=== PATIENT | female | born 1995 | race Caucasian/White ===

== ENCOUNTER 2025-08-13 22:28 | Outpatient (CLI) | payer BC, SELFPAY ==
--- OUTSIDE RECORDS SUMMARY | 2025-08-13 22:40 | XMS RPT_ITS | CCD ---
Author Organization [facility] Team Providers Care Shampoo Person Name Role Phone Jatin Jung Unavailable [phone] OberBayron abadn Primary Care Provider [phone] OberBayron abadn Primary Care Provider [phone] Oberhauser, Evelyn Unavailable Unavailable Rayray Ayala Unavailable Unavailable Oberhauser, Evelyn L Unavailable Unavailable Jatin Jung Unavailable Unavailable Jose Aggarwal Unavailable Unavailable Oberhauser, Evelyn L Unavailable Unavailable ERNIE GROVE Admitting Unavailab ERNIE Quinn Referring Unavailab le OBERHAUSER, EVELYN Primary Care Unavailable OBERHAUSER, EVELYN Primary Care Unavailable Oberhauser, Evelyn Primary Care Provider [phone] Noemi Witt Unavailable Unavailable Oberhauser, Evelyn Sabrina Unavailable Unavailab le Oberhauser Bayron CHOWDHURYn Unavailable Unavailable Oberhauser, Evelyn L Unavailable Unavailable Jatin Jung Unavailable Unavailable ERNIE GROVE Attending Unavailab le OBERHAUSER, EVELYN Primary Care Unavailable ERNIE GROVE Attending Unavailab le OBERHAUSER, EVELYN Primary Care Unavailable ERNIE GROVE Attending Unavailab le OBERHAUSER, EVELYN Primary Care Unavailable ERNIE GROVE Attending Unavailab le OBERHAUSER, EVELYN Primary Care Unavailable BELEN CARL Attending Unavailable OBERHAUSER, EVELYN Primary Care Unavailable ANTONIO ALVES Attending Unavailable OBERHAUSER, EVELYN Primary Care Unavailable ERNIE GROVE Admitting Unavailab ERNIE Quinn Referring Unavailab le OBERHAUSER, EVELYN Primary Care Unavailable ERNIE GROVE Attending Unavailab le OBERHAUSER, EVELYN Primary Care Unavailable ObtashiahausEvelyn lao Unavailable Unavailable Unavailable Unavailable Unavailable Unavailable Unavailable Oberhauser, Evelyn L Unavailable Chuck Thorpe Unavailable Unavailable Flavio, Lung S Unavailable Unavailable BrigitteFili rangel Unavailable Eva Rosasek Unavailable Unavailable Ileana Gutiérrez Unavailable Donna Arias Unavailable TOBIAS CAMPOS Attending Unavailable TOBIAS CAMPOS Referring Unavailable Oberhauser, Dr. Evelyn Bennett Primary Care Unava ilable Oberhauser, Dr. Evelyn Bennett Attending Unava ilable Oberhauser, Dr. Evelyn Bennett Referring Unava ilable Oberhauser, Dr. Evelyn Bennett Primary Care Unava ilable Chuck Thorpe Attending Unavailab le Oberhauser, Dr. Evelyn Bennett Primary Care Unava ilable Oberhauser, Dr. Evelyn Bennett Primary Care Unava ilable Brigitte, Dr. Fili Recio Attending Unavail able Oberhauser, Dr. Evelyn Bennett Attending Unava ilable Oberhauser, Dr. Evelyn Bennett Primary Care Unava ilable Oberhauser, Dr. Evelyn Bennett Attending Unava ilable Oberhauser, Dr. Evelyn Bennett Referring Unava ilable Oberhauser, Dr. Evelyn Bennett Primary Care Unava ilable Oberhauser, Dr. Evelyn Bennett Primary Care Unava ilable Flavio, MsMeghann Lung Sosa Attending Unavailable Oberhauser, Dr. Evelyn Bennett Primary Care Unava ilable Flavio, MsMeghann Lung Sosa Attending Unavailable Oberhauser, Dr. Evelyn Bennett Primary Care Unava ilable Flavio, MsMeghann Lung Sosa Attending Unavailable Oberhauser, Dr. Evelyn Bennett Primary Care Unava ilable Flavio, MsMeghann Lung Sosa Attending Unavailable Oberhauser, Dr. Evelyn Bennett Primary Care Unava ilable Flavio, MsMeghann Lung Sosa Attending Unavailable Oberhauser, Dr. Evelyn Bennett Attending Unava ilable Oberhauser, Dr. Evelyn Bennett Referring Unava ilable Oberhauser, Dr. Evelyn Bennett Primary Care Unava ilable DANA RAMOS Attending Unavailable Memo Quigley Unavailable Simeon, Ms. Tammy J Referring Unavailable Oberhauser, Dr. Evelyn Bennett Primary Care Unava ilable Simeon, Ms. Tammy J Attending Unavailable Simeon, Ms. Tammy J Referring Unavailable Oberhauser, Dr. Evelyn Bennett Primary Care Unava ilable Simeon, Ms. Tammy J Attending Unavailable Simeon, Ms. Tammy J Referring Unavailable Oberhauser, Dr. Evelyn Bennett Primary Care Unava ilable Simeon, Ms. Tammy J Attending Unavailable Oberhauser, Dr. Evelyn Bennett Primary Care Unava ilable Fried, Ms. Nancy Amanda Attending Unavailabl e Fried, Ms. Nancy Amanda Referring Unavailabl e Oberhaustashia, Dr. Evelyn Bennett Primary Care Unava ilable Fried, Ms. Nancy Amanda Attending Unavailabl e Fried, Ms. Nancy Amanda Referring Unavailabl e DONNA ARIAS Attending Unavailable DONNA ARIAS Referring Unavailable Oberhauser, Dr. Evelyn Bennett Primary Care Unava ilable Oberhauser, Dr. Evelyn Bennett Primary Care Unava ilable Oberhauser, Dr. Evelyn Bennett Referring Unava ilable Colin, Dr. Collado Attending Unavailable Oberhauser, Dr. Evelyn Bennett Primary Care Unava ilable Oberhauser, Dr. Evelyn Bennett Attending Unava ilable Oberhauser, Dr. Evelyn Bennett Referring Unava ilable Oberhauser, Dr. Evelyn Bennett Primary Care Unava ilable Fried, MsMeghann Nancy Amanda Attending Unavailabl e Oberhauser, Dr. Evelyn Bennett Primary Care Unava ilable Flavio, Lung Referring Unavailable Ileana Gutiérrez Attending Unavailable Oberhauser, Dr. Evelyn Bennett Primary Care Unava ilable Flavio, Lung Attending Unavailable Flavio, Lung Referring Unavailable Oberhauser, Dr. Evelyn Bennett Primary Care Unava ilable Flavio, Lung Attending Unavailable Flavio, Lung Referring Unavailable Oberhauser DO, Evelyn L Primary Care Provider [phone] Flavio SCRIPT GIRL-NAILER OPERATOR, Lung S Unavailable Unavailab le Flavio SCRIPT GIRL-NAILER OPERATOR, Lung S Unavailable Simeon SCRIPT GIRL-NAILER OPERATOR, Tammy J Unavailable Simeon SCRIPT GIRL-NAILER OPERATOR, Tammy J Unavailable Simeon SCRIPT GIRL-NAILER OPERATOR, Tammy J Unavailable OBERHAUSER, EVELYN L Primary Care Unavailable TAMMY SIMEON Attending Unavailable OBERHAUSER, EVELYN L Primary Care Unavailable OBERHAUSER, EVELYN L Primary Care Unavailable Unavailable Primary Care Provider Unavailabl e TAMMY SIMEON Attending Unavailable SIPPEY, EVELYN Referring Unavailable OBERHAUSER, EVELYN L Primary Care Unavailable GHULAM RENTERIA Attending Unavailable TAMMY SIMEON Referring Unavailable OBERHAUSER, EVELYN L Primary Care Unavailable TAMMY SIMEON Attending Unavailable OBERHAUSER, EVELYN L Primary Care Unavailable Oberhauser DO, Evelyn Primary Care Provider OBERHAUSER, EVELYN Referring Unavailable OBERHAUSER, EVELYN Attending Unavailable OBERHAUSER, EVELYN Primary Care Unavailable Simeon SCRIPT GIRL-NAILER OPERATOR, Tammy J Unavailable Oberhauser DO, Evelyn L Primary Care Provider OBERHAUSER, EVELYN L Primary Care Unavailable KAI VERA Attending Unavailable JOY DENNISON Attending Unavailable ERIK, NELI L Referring Unavailable HAURY, CHRISSIE Attending Unavailable ROLDAN, LORRAINE Referring Unavailable ERIK, NELI Referring Unavailable MARY STILL Attending Unavailable ROLDAN, LORRAINE Referring Unavailable ROLDAN, LORRAINE Attending Unavailable MARY STILL Attending Unavailable SELF Referring Unavailable ROLDAN, LORRAINE Referring Unavailable SHAQUILLE POON Attending Unavail able ROLDAN, LORRAINE Referring Unavailable ROLDAN, LORRAINE Referring Unavailable ROLDAN, LORRAINE Referring Unavailable HAURY, CHRISSIE Attending Unavailable TAYLOR WOOTEN Attending Unavailable ROLDAN, LORRAINE Referring Unavailable HAURY, CHRISSIE Referring Unavailable ROLDAN, LORRAINE Attending Unavailable BRISEYDA, ALBA Attending Unavailable BRISEYDA, ALBA Referring Unavailable ROLDAN, LORRAINE Attending Unavailable SELF Referring Unavailable ROLDAN, LORRAINE Referring Unavailable TAYLOR WOOTEN Attending Unavailable SHAQUILLE POON Attending Unavail able MILTON MIRANDA Attending Unavailable ROLDAN, LORRAINE Referring Unavailable ROLDAN, LORRAINE Referring Unavailable ROLDAN, LORRAINE Attending Unavailable ROLDAN, LORRAINE Referring Unavailable ROLDAN, LORRAINE Referring Unavailable ROLDAN, LORRAINE Attending Unavailable Evelyn Busch Primary Care Unavailable Roldan, Lorraine Referring Unavailable Roldan, Lorraine Attending Unavailable Roldan, Lorraine Admitting Unavailable Allergies Allergy Classification Reported Allergen(s) Allergy Type Date of Onset Reaction(s) Facility Cephalosporins (antibiotic) (1 source) Cephalexin Drug Allergy 4 [facility] Penicillins (antibiotic) (5 sources) Penicillins; Translations: [Penicillins] Drug Allergy 8 [facility] (18 sources) Penicillins; Translations: [PENICILLINS] Propensity to adverse reactions to drug 8 [facility] (5 sources) Penicillins Propensity to adverse reactions to drug 9 [facility] (20 sources) Penicillins; Translations: [Penicillins] Allergy to drug (finding) [facility] Work Phone: (1 source) Penicillin Drug Allergy Unknown [facility] Other (16 sources) Penicillins Drug Allergy 8 [facility] Work Phone: (10 sources) Adhesive Tape-Silicones; Translations: [ADHESIVE TAPE-SILICONES] Propensity to adverse reactions 4 [facility] Work Phone: (20 sources) Sutures; Translations: [SUTURES] Propensity to adverse reactions 4 [facility] Work Phone: (20 sources) Cephalexin; Translations: [CEPHALEXIN] Drug Allergy 4 [facility] (9 sources) Adhesive agent; Translations: [ADHESIVE] Drug Allergy 5 [facility] (1 source) Penicillins Propensity to adverse reactions to drug 9 [facility] [place] (1 source) *Sutures Propensity to adverse reactions 4 Hives, Itching [facility] [place] (1 source) Skin Adhesives Propensity to adverse reactions to drug 5 Hives, Itching [facility] [place] (12 sources) Penicillins Drug Allergy 8 [facility] (3 sources) Midodrine; Translations: [MIDODRINE] Drug Allergy 5 Other [facility] Work Phone: (5 sources) Adhesive agent Drug Allergy 5 [facility] Medications Current Medications Medication Drug Class(es) Dates Sig (Normalized) Sig (Original) acetaminophen 325 mg / oxyCODONE hydrochloride 5 mg oral tablet (1 source) Opioid Agonist Start: 09-25-2023 End: 09-27-2023 take 1 tablet by mouth every six hours for pain oxyCODONE-acetami nophen (Percocet) 5-325 mg tablet Indications: Post-operative pain Take 1 tablet by mouth every 6 hours if needed for severe pain (7 - 10) (post-operative pain) for up to 2 days. 8 tablet 0 09/25/2023 09/27/2023 Active Ajovy 225 mg/1.5 mL Syrg (8 sources) Start: 08-21-2019 Ajovy 225 mg/1.5 mL Syrg Inject under the skin every 30 (thirty) days . 0 08/21/2019 Active Start: 08-21-2019 Ajovy 225 mg/1 .5 mL Syrg amitriptyline hydrochloride 75 mg oral tablet (5 sources) Tricyclic Antidepressant take 1 tablet by mouth at bedtime amitriptyline 75 MG Tab Take 75 mg by mouth At bedtime. 0 Active ascorbic acid 250 mg chewable tablet (2 sources) Vitamin C take 1 tablet by mouth once daily Vitamin C 250 mg oral tablet, chewable ; 1 tab(s) orally once a day Quantity: 0 Refills: 0 Ordered: 29-May-2022 Belia Smith Generic Substitution Allowed aspirin 81 mg delayed release oral tablet (15 sources) Platelet Aggregation Inhibitor, Nonsteroidal Anti-inflammatory Drug Start: 04-25-20 25 take 1 tablet by mouth once daily aspirin, enteric coated (ECOTRIN LOW STRENGTH) 81 mg EC tablet Indications: with uncertain dates, antepartum (HCC) Take 1 tablet by mouth once daily. 90 tablet 3 01/29/2025 Active Start: 07-20-2020 End: 08-04-2020 take 1 tablet by mouth twice daily aspirin 81 MG EC tablet Take 1 (one) tablet (81 mg total) by mouth 2 (two) times a day for 15 days . 30 tablet 0 07/20/2020 08/04/2020 Active Start: 10-22-2019 End: 11-21-2019 take 1 tablet by mouth twice daily aspirin 325 MG buffered tablet Take 1 (one) tablet (325 mg total) by mouth 2 (two) times a day . 60 tablet 0 10/22/2019 11/21/2019 Active Atogepant (Qulipta) 60 MG tablet (1 source) Start: 10-20-2024 take 1 tablet by mouth once daily Atogepant (Qulipta) 60 MG tablet Take 60 mg by mouth daily. 10/20/2024 Active atogepant 60 MG Oral Tablet [Qulipta] (1 source) take 1 tablet by mouth every twenty-four hours Qulipta 60 MG 1 tablet Orally Once a day Active betamethasone 0.5 mg/ml topical cream (5 sources) Corticosteroid Start: 10-02-2023 End: 01-30-2024 betamethasone dipropionate 0.05 % cream Indications: Urticaria , Allergic contact dermatitis due to adhesives Apply topically 2 times a day as needed for irritation or rash. 15 g 0 10/02/2023 01/30/2024 Active Blood-Glucose Meter (1 source) Start: 06-21-2025 End: 06-22-2025 Blood-Glucose Meter Use as directed to check glucose levels up to seven times daily. 1 each 06/21/2025 06/22/2025 Active 24 hr buPROPion hydrochloride 150 mg extended release oral tablet (1 source) Aminoketone Start: 12-30-2024 take 1 tablet by mouth once daily in the morning buPROPion 150 MG tablet XL Take 1 tablet by mouth daily every morning. 30 tablet 12/30/2024 Active calcium chloride 0.0014 meq/ml / potassium chloride 0.004 meq/ml / sodium chloride 0.103 meq/ml / sodium lactate 0.028 meq/ml injectable solution (6 sources) Start: 09-25-2023 lactated Ringe r's infusion Start: 07-20-2020 End: 07-20-2020 take 100 mL intravenous route every hour 100 mL/hr, Intravenous, Continuous, Starting 07/20/20 at 1245, PACU (only) Start: 07-20-2020 End: 07-20-2020 lactated Ringers infusion Start: 10-22-2019 End: 10-22-2019 take 100 mL intravenous route every hour 100 mL/hr, Intravenous, Continuous, Starting Pat 10/22/19 at 0915, PACU (only) Start: 10-22-2019 End: 10-22-2019 lactated [facility]ers infusion cephalexin 500 mg oral capsule (1 source) Cephalosporin Antibacterial Start: 02-26-2024 End: 03-07-2024 take 1 capsule by mouth twice daily cephalexin (Keflex) 500 mg capsule Indications: Acute rhinosinusitis Take 1 capsule (500 mg) by mouth 2 times a day for 10 days. 20 capsule 02/26/2024 03/07/2024 Active cetirizine hydrochloride 10 mg chewable tablet (20 sources) Histamine-1 Receptor Antagonist take 1 tablet by mouth every twenty-four hours as needed cetirizine (ZyrTEC) 10 mg chewable tablet Chew 1 tablet (10 mg) once daily as needed for allergies. Active ZyrTEC Allergy 1 0 MG Oral Capsule take as needed Quantity: 0 Refills: 0 Ordered: 05-Jul-2023 DO Active ZyrTEC Allergy 1 0 MG Oral Capsule take as needed Quantity: 0 Refills: 0 Ordered: 19-Jul-2022 DO Active take 1 tablet by marycruz once daily as needed cetirizine 10 mg oral tablet ; 1 tab(s) orally once a day, As Needed Quantity: 0 Refills: 0 Ordered: 29-May-2022 Belia Smith Generic Substitution Allowed cyproheptadine hydrochloride 4 mg oral tablet (7 sources) Start: 03-24-2025 End: 06-11-2025 take 1 tablet by mouth every eight hours as needed cyproheptadine (PERIACTIN) 4 mg tablet Take 1 tablet by mouth three times a day as needed (migraines). 30 tablet 06/11/2025 Active Desogestrel / Ethinyl Estradiol (5 sources) Progestin, Estrogen DESOGESTREL- ETHINYL ESTRADIOL PO Take 3 mg by mouth. 0 Active dicyclomine hydrochloride 20 mg oral tablet (6 sources) Anticholinergic Start: 08-06-2023 End: 2023 take 1 tablet by mouth four times daily as needed for pain dicyclomine (Bentyl) 20 mg tablet Indications: RUQ abdominal pain , Epigastric pain Take 1 tablet (20 mg) by mouth 4 times a day as needed (abdominal pain or cramps). 30 tablet 0 08/06/2023 2023 Active dihydroergotamine mesylate 0.5 mg/actuat metered dose nasal spray (1 source) Ergotamine Derivative Trudhesa 4 mg/mL nasal spray ; 1 spray(s) nasal every 15 minutes, As Needed Quantity: 0 Refills: 0 Ordered: 29-May-2022 Belia Smith Generic Substitution Allowed dihydroergotamine mesylate 0.725 MG/ACTUAT Metered Dose Nasal [place] [Trudhesa] (1 source) Trudhesa 0.725 MG/ACT 1 spray in each nostril may repeat dose after 1 hour no more than 3 doses per week as needed Nasally Once a day Active Dihydroergotamine Mesylate HFA (Trudhesa) 0.725 MG/ACT Aero Soln (1 source) Start: 04-17-2024 Dihydroergotamine Mesylate HFA (Trudhesa) 0.725 MG/ACT Aero Soln 1 spray by Miscellaneous route daily as needed for Other (Migraines). May repeat in 1 hour if the first dose does not help 04/17/2024 Active Ethinyl Estradiol / Norethindrone (12 sources) Estrogen Start: 08-23-2023 End: 10-23-2024 take 0.05 ug by mouth once daily in the evening norethindrone ac-eth estradioL (Microgestin 10/26) 1-20 mg-mcg tablet Indications: Encounter for surveillance of contraceptive pills Take 1 tablet by mouth once daily. 28 tablet 11 07/20/2024 2:19 PM EDT 08/23/2023 10/23/2024 Discontinued (Therapy completed) Start: 08-23-2023 End: 08-22-2024 take 0.05 ug by mouth once daily norethindrone ac-eth estradioL (Microgestin /20) 1-20 mg-mcg tablet Indications: Encounter for surveillance of contraceptive pills Take 1 tablet by mouth once daily. 28 tablet 11 08/23/2023 08/22/2024 Suspended Start: 08-23-2023 End: 08-22-2024 take 0.05 ug by mouth once daily norethindrone ac-eth estradioL (Microgestin 20) 1-20 mg-mcg tablet Indications: Encounter for surveillance of contraceptive pills Take 1 tablet by mouth once daily. 28 tablet 11 08/23/2023 08/22/2024 Active famotidine 20 mg oral tablet (14 sources) Histamine-2 Receptor Antagonist Start: 06-01-2025 take 1 tablet by mouth twice daily famotidine (PEPCID) 20 mg tablet Take 1 tablet by mouth two times a day. 60 tablet 5 06/01/2025 Active Start: 08-06-2023 End: 04-17-2024 take 1 tablet by mouth twice daily famotidine (Pepcid) 20 mg tablet Indications: RUQ abdominal pain , Epigastric pain Take 1 tablet (20 mg) by mouth 2 times a day for 7 days. 14 tablet 08/06/2023 04/17/2024 Discontinued (Therapy completed) flu vacc [id number] 6mos up, PF, (Flulaval Quad , PF,) syringe (7 sources) Start: 09-04-2023 End: 01-09-2024 flu vacc [id number] 6mos up, PF, (Flulaval Quad , PF,) syringe Inject into the muscle. 0.5 mL 0 09/04/2023 01/09/2024 Discontinued (Therapy completed) Start: 09-04-2023 flu vacc [id number] [id number] 6mos up, PF, (Flulaval Quad , PF,) syringe Inject into the muscle. 0.5 mL 0 09/04/2023 Suspended Start: 09-04-2023 flu vacc [id number] 3-24 6mos up, PF, (Flulaval Quad , PF,) syringe Inject into the muscle. 0.5 mL 0 09/04/2023 Active fludrocortisone acetate 0.1 mg oral tablet (10 sources) Start: 01-04-2025 take 1 tablet by mouth twice daily fludrocortisone (Florinef) 0.1 mg tablet Indications: POTS (postural orthostatic tachycardia syndrome) Take 1 tablet (0.1 mg) by mouth 2 times a day. 60 tablet 1 01/04/2025 Active Start: 01-04-2023 End: 08-06-2023 take 1 tablet by mouth once daily in the morning, then take 1 tablet by mouth twice daily fludrocortisone (Florinef) 0.1 mg tablet TAKE 1 TABLET BY MOUTH EVERY MORNING FOR 1 WEEK, THEN INCREASE TO 1 TABLET 2 TIMES A DAY 60 tablet 3 03/20/2023 08/06/2023 Discontinued (Therapy completed) gabapentin 100 mg oral capsule (20 sources) Anti-epileptic Agent Start: 05-21-2024 End: 10-23-2024 take 2 capsules by mouth once daily in the morning, then take 1 capsule by mouth once daily gabapentin (Neurontin) 100 mg capsule Indications: Chronic migraine without aura without status migrainosus, not intractable Take 2 capsules (200 mg) by mouth once daily for 7 days, THEN 1 capsule (100 mg) once daily for 7 days. 21 capsule 05/22/2024 9:53 AM EDT 05/21/2024 10/23/2024 Discontinued (Therapy completed) Start: 08-28-2019 End: 12-30-2024 take 1 capsule by mouth twice daily gabapentin 300 MG capsule Indications: NDPH (new daily persistent headache) , Primary stabbing headache Take 1 capsule by mouth 2 times daily. 180 capsule 2 12/23/2019 12/30/2024 Discontinued (Therapy completed) take 1 capsule by mo ut every twenty-four hours Gabapentin 300 MG 1 capsule Orally Once a day Active hydrOXYzine hydrochloride 25 mg oral tablet (5 sources) Antihistamine Start: 10-02-2023 End: 02-26-2024 take 1 tablet by mouth every six hours hydrOXYzine HCL (Atarax) 25 mg tablet Indications: Urticaria , Allergic contact dermatitis due to adhesives Take 1 tablet (25 mg) by mouth every 6 hours if needed for itching. 30 tablet 10/02/2023 02/26/2024 Discontinued (Med List Cleanup) Start: 10-02-2023 End: 10-02-2023 take 1 tablet by mouth three times daily hydrOXYzine HCL (Atarax) 25 mg tablet Indications: Urticaria , Allergic contact dermatitis due to adhesives Take 1 tablet (25 mg) by mouth 3 times a day. 90 tablet 0 10/02/2023 10/02/2023 Discontinued (Med List Cleanup) ibuprofen 600 mg oral tablet (1 source) Nonsteroidal Anti-inflammatory Drug take 1 tablet by mouth twice daily ibuprofen 600 mg oral tablet ; 1 tab(s) orally 2 times a day Quantity: 0 Refills: 0 Ordered: 11-Nov-2019 Vickie Jones Status: Other Generic Substitution Allowed isopropyl alcohol 0.7 ml/ml medicated pad (1 source) Start: alcohol swabs (ALCOHOL PREP PADS) Use as directed to check glucose levels up to seven times daily. 200 each 8 06/21/2025 Active labetalol hydrochloride 100 mg oral tablet (12 sources) beta-Adrenergic [place]tran Start: 025 take 1 tablet by mouth every twenty-four hours as needed labetalol (TRANDATE) 100 mg tablet Take 100 mg by mouth at bedtime as needed. 03/17/2025 Active Start: 09-25-2023 labetaloL (Nor modyne,Trandate) injection 5 mg Start: 07-20-2020 End: 07-20-2020 5 mg, Intravenous, Every 5 m in PRN, SBP greater than 180 or DBP greater than 120, Starting 07/20/20 at 1157, For 4 doses, PACU (only) [] Do not give more than 20 mg total. [] Hold for HR less than 50. Start: 10-22-2019 End: 10-22-2019 5 mg, Intravenous, Every 5 m in PRN, SBP greater than 180 or DBP greater than 120, Starting Pat 10/22/19 at 0819, For 4 doses, PACU (only) [] Do not give more than 20 mg total. [] Hold for HR less than 50. methylPREDNISolone (1 source) Corticosteroid Start: 10-23-2024 End: 10-29-2024 methylPREDNISolone (Medrol Dospak) 4 mg tablets Indications: Chronic migraine with aura without status migrainosus, not intractable Follow schedule on package instructions 21 tablet 10/23/2024 10/29/2024 Active midodrine hydrochloride 2.5 mg oral tablet (20 sources) alpha-Adrenergic Agonist Start: 12-22-2024 take 1 tablet by mouth three times daily midodrine 2.5 MG tablet Take 1 tablet by mouth 3 times daily. 12/22/2024 Active Start: 10-23-2024 take 1 tablet by marycruz three times daily midodrine (Proamatine) 2.5 mg tablet Indications: Chronic migraine without aura without status migrainosus, not intractable Take 1 tablet (2.5 mg) by mouth 3 times daily (morning, midday, late afternoon). 270 tablet 3 10/23/2024 Active Start: 2024 End: 10-23-2024 take 1 tablet by mouth three times daily midodrine (Proamatine) 2.5 mg tablet Indications: Chronic migraine without aura without status migrainosus, not intractable Take 1 tablet (2.5 mg) by mouth 3 times daily (morning, midday, late afternoon). 90 tablet 3 10/08/2024 1:45 PM EST 2024 10/23/2024 Discontinued (Other) Start: 12-09-2023 End: 01-09-2024 take 1 tablet by mouth twice daily midodrine (PROAMATINE) 2.5 mg tablet Take 2.5 mg by mouth two times a day. 12/09/2023 Active Start: 09-09-2023 midodrine (Pro amatine) 2.5 mg tablet Indications: Chronic migraine without aura without status migrainosus, not intractable TAKE 1 TABLET BY MOUTH EVERY MORNING FOR 1 WEEK, THEN TWICE DAILY 60 tablet 2 09/09/2023 Active Start: 07-05-2023 midodrine (Pro amatine) 2.5 mg tablet TAKE 1 TABLET BY MOUTH EVERY MORNING FOR 1 WEEK, THEN TWICE DAILY 60 tablet 1 07/05/2023 Active 1 ml morphine sulfate 4 mg/ml prefilled syringe (2 sources) Opioid Agonist Start: 09-25-2023 morphine injec tion 4 mg Start: 09-25-2023 morphine injec tion 2 mg naproxen sodium 550 mg oral tablet (6 sources) Nonsteroidal Anti-inflammatory Drug Start: 04-29-2019 take 1 tablet by mouth every twelve hours as needed for headache naproxen sodium (ANAPROX DS) 550 MG Tab 1 po q 12 hours prn headache 20 tablet 4 04/29/2019 Active Start: 03-13-2019 End: 04-29-2019 take 1 tablet by mouth every twelve hours as needed for headache naproxen sodium (ANAPROX DS) 550 MG Tab 1 po q 12 hours prn headache 20 tablet 3 03/13/2019 04/29/2019 Discontinued (Reorder) nitrofurantoin, macrocrystals 25 mg / nitrofurantoin, monohydrate 75 mg oral capsule (1 source) Nitrofuran Antibacterial Start: 03-23-2025 End: 03-28-2025 take 1 capsule by mouth twice daily nitrofurantoin, macrocrystal-monohydrate, (Macrobid) 100 mg capsule Indications: Urinary tract infection without hematuria, site unspecified Take 1 capsule (100 mg) by mouth 2 times a day for 5 days. 10 capsule 03/23/2025 03/28/2025 Active nortriptyline 10 mg oral capsule (5 sources) Tricyclic Antidepressant Start: 10-23-2024 take 2 capsules by mouth once daily at bedtime nortriptyline (Pamelor) 10 mg capsule Indications: Chronic migraine with aura without status migrainosus, not intractable Take 2 capsules (20 mg) by mouth once daily at bedtime. 180 capsule 3 10/23/2024 Active Start: 03-13-2024 End: 10-23-2024 take 1 capsule by mouth once daily at bedtime nortriptyline (PAMELOR) 10 mg capsule Take 10 mg by mouth daily at bedtime. 10/23/2024 Active 2 ml ondansetron 2 mg/ml injection (20 sources) Serotonin-3 Receptor Antagonist Start: 09-25-2023 End: 09-25-2023 ondansetron (Zofran) injection 4 mg Start: 10-02-2022 take 1 tablet by marycruz th every eight hours ondansetron 4 mg oral tablet, disintegrating ; 1 tab(s) orally every 8 hours Quantity: 15 Refills: 0 Ordered: 02-Oct-2022 Fili Briggs Start: 02-Oct-2022 Generic Substitution Allowed Start: 04-11-2021 take 1 tablet by marycruz th every six hours Ondansetron HCl - 4 MG Oral Tablet TAKE 1 TABLET Every 6 hours PRN nausea Quantity: 120 Refills: 5 Ordered: 10-Oct-2022 Evelyn Busch DO Start : 11-Apr-2021 Active Start: 07-20-2020 End: 07-20-2020 take 4 mg intravenous route every twenty-four hours as needed 4 mg, Intravenous, Once as needed, nausea, vomiting, Starting 07/20/20 at 1157, For 1 dose, PACU (only) Administer first as needed for nausea/vomiting, or as directed by anesthesia Start: 10-22-2019 End: 10-22-2019 take 4 mg intravenous route every twenty-four hours as needed 4 mg, Intravenous, Once as needed, nausea, vomiting, Starting Pat 10/22/19 at 0819, For 1 dose, PACU (only) Administer first as needed for nausea/vomiting, or as directed by anesthesia oxyCODONE hydrochloride 5 mg oral tablet (1 source) Opioid Agonist Start: 09-25-2023 take 1 tablet by mouth every four hours as needed oxyCODONE (Roxicodone) immediate release tablet 5 mg potassium chloride 20 meq extended release oral tablet (1 source) Start: 10-02-2022 End: 10-08-2022 take 1 tablet by mouth once daily at mealtime potassium chloride 20 mEq oral tablet, extended release ; 1 tab(s) orally once a day Quantity: 7 Refills: 0 Ordered: 02-Oct-2022 Fili Briggs Start: 02-Oct-2022 End: 08-Oct-2022 Generic Substitution Allowed Comments: It is very important that you take or use this exactly as directed. Do not skip doses or discontinue unless directed by your doctor.Medication should be taken with plenty of water.Take with food or milk. Comment on above: It is very important that you take or use this exactly as directed. Do not skip doses or discontinue unless directed by your doctor.Medication should be taken with plenty of water.Take with food or milk. vits18/iron/folic/d ss (PRENACARE ORAL) (11 sources) take 1 tablet by mouth once daily vits18/iron/folic /dss (PRENACARE ORAL) Take 1 tablet by mouth once daily. Active promethazine hydrochloride 25 mg oral tablet (10 sources) Phenothiazine Start: 08-06-2023 End: 01-09-2024 take 1 tablet by mouth every six hours for nausea promethazine (Phenergan) 25 mg tablet Indications: RUQ abdominal pain , Epigastric pain Take 1 tablet (25 mg) by mouth every 6 hours if needed for nausea or vomiting. 30 tablet 1 08/06/2023 01/09/2024 Discontinued (Therapy completed) Qulipta 10 mg oral tablet (2 sources) take 1 tablet by mouth once daily Qulipta 10 mg oral tablet ; 1 tab(s) orally once a day / Patient does not know dose Quantity: 0 Refills: 0 Ordered: 29-May-2022 Belia Smith Generic Substitution Allowed QULIPTA 60 mg tablet (1 source) take 1 tablet by mouth once daily QULIPTA 60 mg tablet Take 60 mg by mouth once daily. Active Qulipta 60 mg tablet tablet (18 sources) Start: 10-20-2024 take 1 tablet by mouth once daily Qulipta 60 mg tablet tablet Indications: Chronic migraine without aura without status migrainosus, not intractable Take 1 tablet (60 mg) by mouth once daily. 30 tablet 5 10/20/2024 Active Start: 04-17-2024 take 1 tablet by marycruz th once daily Qulipta 60 mg tablet tablet Indications: Chronic migraine without aura without status migrainosus, not intractable Take 1 tablet (60 mg) by mouth once daily. 30 tablet 5 04/17/2024 Active Start: 01-09-2024 End: 04-17-2024 take 1 tablet by mouth once daily Qulipta 60 mg tablet tablet Indications: Chronic migraine without aura without status migrainosus, not intractable Take 1 tablet (60 mg) by mouth once daily. 30 tablet 3 01/09/2024 04/17/2024 Discontinued (Reorder) Start: 01-09-2024 take 1 tablet by marycruz th once daily Qulipta 60 mg tablet tablet Indications: Chronic migraine without aura without status migrainosus, not intractable Take 1 tablet (60 mg) by mouth once daily. 30 tablet 3 01/09/2024 Active Start: 12-16-2023 End: 01-09-2024 take 1 tablet by mouth once daily Qulipta 60 mg tablet tablet Indications: Chronic migraine without aura without status migrainosus, not intractable Take 1 tablet (60 mg) by mouth once daily. 30 tablet 0 12/16/2023 01/09/2024 Discontinued (Reorder) Start: 12-16-2023 take 1 tablet by marycruz th once daily Qulipta 60 mg tablet tablet Indications: Chronic migraine without aura without status migrainosus, not intractable Take 1 tablet (60 mg) by mouth once daily. 30 tablet 0 12/16/2023 Active Start: 09-09-2023 take 1 tablet by marycruz th once daily Qulipta 60 mg tablet tablet Indications: Chronic migraine without aura without status migrainosus, not intractable Take 1 tablet (60 mg) by mouth once daily. 30 tablet 2 09/09/2023 Active Start: 09-09-2023 take 1 tablet by marycruz th once daily Qulipta 60 mg tablet tablet Indications: Chronic migraine without aura without status migrainosus, not intractable Take 1 tablet (60 mg) by mouth once daily. 30 tablet 2 09/09/2023 Suspended Start: 01-17-2022 take 1 tablet by marycruz th once daily Qulipta 60 mg tablet tablet Take 1 tablet (60 mg) by mouth once daily. 0 01/17/2022 Active SUMAtriptan 5 mg/actuat nasal spray (20 sources) Serotonin-1b and Serotonin-1d Receptor Agonist Start: 08-13-2019 take 1 spray(s) nasal route every two hours as needed SUMAtriptan (IMITREX) 5 mg/actuation nasal spray Instill 1 spray into each nostril every 2 (two) hours as needed . 0 08/13/2019 Active Start: 08-12-2019 End: 08-29-2021 take 1 spray(s) nasal route every two hours as needed SUMAtriptan 5 MG/ACT Nasal Solution USE 1 SPRAY INTO EACH NOSTRIL NEEDED FOR MIGRAINE RELIEF, MAY REPEAT ONCE AFTER 2 HOURS. MAX - 40MG/DAY. Quantity: 6 Refills: 1 Ordered: 12-Aug-2019 Evelyn Busch DO Start : 12-Aug-2019 End : 29-Aug-2021 Complete Start: 04-29-2019 inject 1 dose by sub cutaneous injection every two hours as needed for headache SUMAtriptan Succinate (IMITREX STATDOSE SYSTEM) 4 MG/0.5ML Solution Auto-injector 1 sub q dose prn headache, may repeat in 2 hours; no more than 2 a day 3 mL 3 04/29/2019 Active SUMAtriptan nasa l 5 mg solution Quantity: 0 Refills: 0 Ordered: 11-Nov-2019 Vickie Jones Status: Other Generic Substitution Allowed Trudhesa 0.725 mg/pump act. (4 mg/mL) nasal spray (2 sources) Start: 04-17-2024 take 1 spray(s) nasal route every hour Trudhesa 0.725 mg/pump act. (4 mg/mL) nasal spray Indications: Chronic migraine with aura without status migrainosus, not intractable Administer 1 spray into each nostril every 1 hour if needed for migraine. 4 each 5 04/17/2024 Active Trudhesa 0.725 mg/pump act. (4 mg/mL) spray,non-aerosol (14 sources) Start: 10-18-2021 Trudhesa 0.725 mg/pump act. (4 mg/mL) spray,non-aerosol Administer into affected nostril(s). 10/18/2021 Active Start: 10-18-2021 Trudhesa 0.725 mg/pump act. (4 mg/mL) spray,non-aerosol Administer into affected nostril(s). 0 10/18/2021 Suspended Start: 10-18-2021 Trudhesa 0.725 mg/pump act. (4 mg/mL) spray,non-aerosol Administer into affected nostril(s). 0 10/18/2021 Active Trudhesa 4 mg/mL nasal spray (1 source) Trudhesa 4 mg/mL nasal spray ; 1 spray(s) nasal every 15 minutes, As Needed Quantity: 0 Refills: 0 Ordered: 29-May-2022 Belia Smith Generic Substitution Allowed zonisamide 100 mg oral capsule (20 sources) Anti-epileptic Agent Start: 08-07-2019 zonisamide (ZONEGRAN) 100 MG capsule Start: 06-22-2019 End: 02-02-2025 take 3 capsules by mouth once daily at bedtime zonisamide (Zonegran) 100 mg capsule Indications: Chronic migraine without aura without status migrainosus, not intractable TAKE 3 CAPSULES (300 MG) BY MOUTH ONCE DAILY AT BEDTIME. 270 capsule 3 02/03/2024 02/02/2025 Active Start: 04-29-2019 zonisamide 100 MG Cap 2 or 3 at bed 100 capsule 4 04/29/2019 Active Start: 03-13-2019 End: 04-29-2019 take 1 capsule by mouth once in the evening, then take 2 capsules by mouth once in the evening zonisamide 100 MG Cap 1 po q pm for 2 weeks then 2 po q pm if no sE 60 capsule 4 03/13/2019 04/29/2019 Discontinued (Reorder) Comment on above: Source=[place], Medication=ZONISAMIDE CAP 100MG, [facility]Source[facility], OriginatingProvider=, , Duration=30, Quantity=90, Date Last Modified/Filled=21-Oct-2019 Completed/Discontinued Medications Medication Drug Class(es) Dates Sig (Normalized) Sig (Original) acetaminophen 325 mg oral tablet (9 sources) Start: 03-23-2025 End: 03-23-2025 take 975 mg by mouth once as needed for pain 975 mg, oral, Once, On Sat03/23/25 at 1040, For 1 dose, If ordered PRN for pain, nurse is permitted to administer this medication for higher pain scores based on patient preference? Yes Start: 09-25-2023 End: 09-25-2023 acetaminophen (Tylenol) tabl et 975 mg take 2 tablets by mo uth every six hours as needed acetaminophen 500 mg oral tablet ; 2 tab(s) orally every 6 hours, As Needed Quantity: 0 Refills: 0 Ordered: 29-May-2022 Belia Smith Generic Substitution Allowed take 120 mg rectal r oute every four hours as needed acetaminophen 120 MG Suppository Insert 120 mg rectally every 4 hours as needed. 0 Active acetaminophen 300 mg / codeine phosphate 30 mg oral tablet (10 sources) Opioid Agonist Start: 07-20-2020 Acetaminophen- Codeine #3 300-30 MG Oral Tablet Quantity: 18 Refills: 0 Ordered: 20-Jul-2020 DO Start : 20-Jul-2020 Active Start: 07-20-2020 End: 07-23-2020 take 1 tablet by mouth every four hours as needed for pain acetaminophen-codeine (Tylenol-Codeine #3) 300-30 mg per tablet Indications: S/P arthroscopy of left knee Take 1 (one) tablet by mouth every 4 (four) hours as needed for pain 7 days . 18 tablet 0 07/20/2020 07/23/2020 Active Start: 07-20-2020 End: 07-20-2020 take 1 tablet by mouth every twenty-four hours as needed acetaminophen-codeine (TYLENOL #3) 300-30 mg per tablet 1 tablet Start: 10-22-2019 End: 10-29-2019 take 1 tablet by mouth once as needed for pain, then take 2 tablets by mouth every four hours as needed for pain acetaminophen-codeine (Tylenol-Codeine #3) 300-30 mg per tablet Indications: S/P arthroscopic surgery of left knee Take 1 (one) tablet to 2 (two) tablets by mouth every 4 (four) hours as needed for pain 7 days . 40 tablet 0 10/22/2019 10/29/2019 Active acetaminophen 325 mg / HYDROcodone bitartrate 5 mg oral tablet (3 sources) Opioid Agonist Start: 08-06-2023 End: 08-11-2023 take 1 tablet by mouth every four hours for pain HYDROcodone-acetaminophen ([place]) 5-325 mg tablet Indications: RUQ abdominal pain Take 1 tablet by mouth every 4 hours if needed for severe pain (7 - 10) for up to 5 days. 20 tablet 0 08/06/2023 08/11/2023 Ajovy 225 MG/1.5ML Subcutaneous Solution Prefilled Syringe (6 sources) Start: 08-12-2019 Ajovy 225 MG/1.5ML Subcutaneous Solution Prefilled Syringe 1 injecton subq q monthly Quantity: 1 Refills: 3 Bayron Busch DOn Start : 12-Aug-2019 Active 1.5 ML Syringe Start: 08-12-2019 Ajovy 225 MG/1 .5ML Subcutaneous Solution Prefilled Syringe 1 injecton subq q monthly Quantity: 1 Refills: 0 Nesser , Evelyn Start : 12-Aug-2019 Active 1.5 ML Syringe [id number] actuat albuterol 0.09 mg/actuat metered dose inhaler (3 sources) beta2-Adrenergic Agonist Start: 11-10-2020 End: 04-11-2021 take 1-2 puff(s) by inhalation every six hours as needed Albuterol Sulfate HFA 108 (90 Base) MCG/ACT Inhalation Aerosol Solution INHALE 1 TO 2 PUFFS EVERY 6 HOURS NEEDED. Quantity: 1 Refills: 3 Ordered: 10-Nov-2020 Evelyn Busch DO Start : 10-Nov-2020 End : 11-Apr-2021 Complete Start: 11-10-2020 take 1-2 puff(s) by inhalation every six hours as needed Albuterol Sulfate HFA 108 (90 Base) MCG/ACT Inhalation Aerosol Solution INHALE 1 TO 2 PUFFS EVERY 6 HOURS NEEDED. Quantity: 1 Refills: 3 Evelyn Busch DO Start : 10-Nov-2020 Active 8.5 GM Inhaler azithromycin 500 mg oral tablet (3 sources) Macrolide Antimicrobial Start: 07-11-2023 End: 08-06-2023 take 1 tablet by mouth once daily azithromycin (Zithromax) 500 mg tablet Indications: Upper respiratory tract infection, unspecified type Take 1 tablet (500 mg) by mouth once daily for 5 days. 5 tablet 0 07/11/2023 08/06/2023 Discontinued (Therapy completed) Start: 07-06-2023 take 1 tablet by marycruz th every twenty-four hours Azithromycin 500 MG 1 tablet Orally Once a day for 5 days Jun, Active brompheniramine maleate 0.4 mg/ml / dextromethorphan hydrobromide 2 mg/ml / pseudoephedrine hydrochloride 6 mg/ml oral solution (1 source) alpha-Adrenergic Agonist, Uncompetitive D-kazxwu-E-aspartate Receptor Antagonist, Sigma-1 Agonist Start: 02-27-2021 End: 03-08-2021 take 5 mL by mouth every four to six hours brompheniramine/pseudoephedrine/dextrome thorphan [id number]/5 mL oral syrup ; 5 milliliter(s) orally every 4 to 6 hours, As Needed Quantity: 120 Refills: 0 Ordered: 27-Feb-2021 Keisha Canales Start: 27-Feb-2021 End: 08-Mar-2021 Status: Other Generic Substitution Allowed Comments: May cause drowsiness. Alcohol may intensify this effect. Use care when operating dangerous machinery.Obtain medical advice before taking any non-prescription drugs as some may affect the action of this medication. Comment on above: May cause drowsiness . Alcohol may intensify this effect. Use care when operating dangerous machinery.Obtain medical advice before taking any non-prescription drugs as some may affect the action of this medication. Calcium Carbonate (20 sources) Tums CHEW Qu[place] ty: 0 Refills: 0 Ordered: 05-Jul-2023 DO Active Tums CHEW Quanti ty: 0 Refills: 0 Ordered: 02-Mar-2020 DO Active Tums CHEW Refill s: 0 Active Tums CHEW Refill s: 0 DO Active ceFAZolin 1000 mg injection (1 source) Cephalosporin Antibacterial Start: 10-22-2019 End: 10-22-2019 ceFAZolin (ANCEF) IVPB 1 g (premix) 1 ml dexamethasone phosphate 10 mg/ml injection (1 source) Corticosteroid Start: 09-25-2023 End: 09-25-2023 dexAMETHasone (PF) (Decadron) injection 8 mg diphenhydrAMINE (1 source) Histamine-1 Receptor Antagonist Start: 03-23-2025 End: 03-23-2025 25 mg, intravenous, Once, On Sat03/23/25 at 1040, For 1 dose, If giving IV push, max rate of 25 mg/min. Drospiren-Eth Estrad-Levomefol 3-0.02-0.451 MG Oral Tablet (17 sources) Progestin, Estrogen Start: 06-19-2019 take 1 tablet by mouth once daily Drospiren-Eth Estrad-Levomefol 3-0.02-0.451 MG Oral Tablet TAKE 1 TABLET DAILY FOR 28 DAYS. Quantity: 1 Refills: 1 Evelyn Busch DO Start : 19-Jun-2019 Active 28 Tablet Pack Start: 06-19-2019 Drospiren-Eth Estrad-Levomefol 3-0.02-0.451 MG Oral Tablet Quantity: 28 Refills: 0 DO Start : 19-Jun-2019 Active Start: 06-19-2019 Drospiren-Eth Estrad-Levomefol 3-0.02-0.451 MG Oral Tablet Quantity: 28 Refills: 0 Start : 19-Jun-2019 Active Start: 12-12-2017 NIKKI 3-0.02- 0.451 mg (24) (4) Tab Take 1 tablet by mouth . 0 12/12/2017 Active Start: 12-12-2017 NIKKI 3-0.02- 0.451 mg (24) (4) Tab DROSPIRE/ETH TAB ESTR/LEV ; 1 orally once a day Quantity: 0 Refills: 0 Ordered: 11-Nov-2019 Vickie Jones Status: Other Generic Substitution Allowed Comments: Source=[place], Medication=DROSPIRE/ETH TAB ESTR/LEV, OriginatingSource=[facility], OriginatingProvider=, , Duration=28, Quantity=28, Date Last Modified/Filled=07-Nov-2019 Comment on above: Source=[place], Medication=DROSPIRE/ETH TAB ESTR/LEV, [facility]Source=[facility], OriginatingProvider=, , Duration=28, Quantity=28, Date Last Modified/Filled=07-Nov-2019 1 ml erenumab-aooe 140 mg/ml auto-injector (2 sources) Star t: 220 22 inject 1 mL by subcutaneous injection every 30 days Aimovig 140 MG/ML Subcutaneous Solution Auto-injector Inject 1ml subcutaneously every 30 days Quantity: 1 Refills: 6 Ordered: 08-Nov-2021 Flavio SCRIPT GIRL-NAILER OPERATOR, Lung Start : 08-Nov-2021 Active Discontinue Emgality. Topirmate, amitriptyline, ajovy, and emgality have failed. Ethinyl Estradiol / Ferrous fumarate / Norethindrone (14 sources) Estrogen Star t: 0 2-20 23 End: 08-09 020 23 norethindrone-e.e stradioL-iron (Lo Loestrin) 1 mg-10 mcg (24)/10 mcg (2) tablet TAKE 1 TABLET DAILY DIRECTED. 84 tablet 3 12/06/2022 09/05/2023 Discontinued (Med List Cleanup) Start: 12-06-2022 End: 12-06-2023 norethindrone-e.estradioL-ir on (Lo Loestrin) 1 mg-10 mcg (24)/10 mcg (2) tablet TAKE 1 TABLET DAILY DIRECTED. 84 tablet 3 12/06/2022 12/06/2023 Active Start: 12-06-2022 take 1 tablet by marycruz once daily Lo Loestrin Fe 1 MG-10 MCG / 10 MCG Oral Tablet TAKE 1 TABLET DAILY DIRECTED. Quantity: 3 Refills: 3 Ordered: 06-Dec-2022 Fried SCRIPT GIRL-CNM, SCRIPT GIRL-NAILER OPERATOR, Nancy Start : 06-Dec-2022 Active fluticasone propionate 0.05 mg/actuat metered dose nasal spray (1 source) Corticosteroid Start: 02-27-2021 End: 03-08-2021 take 1 spray(s) nasal route once daily fluticasone 50 mcg/inh nasal spray ; 1 spray(s) in each nostril once a day Quantity: 1 Refills: 0 Ordered: 27-Feb-2021 Keisha Canales Start: 27-Feb-2021 End: 08-Mar-2021 Status: Other Generic Substitution Allowed Comments: For the nose.It is very important that you take or use this exactly as directed. Do not skip doses or discontinue unless directed by your doctor. Comment on above: For the nose.It is v saroj important that you take or use this exactly as directed. Do not skip doses or discontinue unless directed by your doctor. 1.5 ml fremanezumab-vfrm 150 mg/ml prefilled syringe (5 sources) Start: 12-23-2019 End: 12-30-2024 inject 225 mg by subcutaneous injection every 30 days Fremanezumab-vfrm (Ajovy) 225 MG/1.5ML Solution Prefilled Syringe Indications: NDPH (new daily persistent headache) Inject 225 mg under the skin every 30 days. 1.5 mL 6 12/23/2019 12/30/2024 Discontinued (Therapy completed) Start: 08-12-2019 Ajovy 225 MG/1 .5ML Subcutaneous Solution Prefilled Syringe 1 injecton subq q monthly Quantity: 1 Refills: 3 Ordered: 06-Jun-2021 Evelyn Busch DO Start : 12-Aug-2019 Active AJOVY INJ 225/1. 5 Quantity: 1.5 Refills: 0 Ordered: 11-Nov-2019 Vickie Jones Status: Other Generic Substitution Allowed Comments: Source=[place], Medication=AJOVY INJ 225/1.5, OriginatingSource=[facility], OriginatingProvider=, , Duration=30, Quantity=1.5, Date Last Modified/Filled=21-Oct-2019 Comment on above: Source=[place], Medication=AJOVY INJ 225/1.5, [facility]Source=[facility], OriginatingProvider=, , Duration=30, Quantity=1.5, Date Last Modified/Filled=21-Oct-2019 1 ml galcanezumab-g nlm 120 mg/ml prefilled syringe (7 sources) Start : 06-28 inject 120 mg by subcutaneous injection every month Emgality 120 MG/ML Subcutaneous Solution Prefilled Syringe Inject 120mg subq (1 syringe) once a month Quantity: 1 Refills: 6 Ordered: 01-Aug-2021 Oberhauser DO, Evelyn Start : 28-Jun-2021 Active Start: 06-28-2021 Emgality 120 M G/ML Subcutaneous Solution Prefilled Syringe Inject 240mg subq (2 syringes) x1 as loading dose Quantity: 2 Refills: 0 Ordered: 28-Jun-2021 Oberhauser DO, Evelyn Start : 28-Jun-2021 Active 1 ml HYDROmorphone hydrochloride 1 mg/ml injection (2 sources) Opioid Agonist Start: 07-20-2020 End: 07-20-2020 0.5 mg, Intravenous, Every 5 min PRN, Pain, Starting 07/20/20 at 1157, For 6 doses, PACU (only) [] Give if fentanyl not effective or not ordered. [] Do not give more than 3 mg total. Start: 10-22-2019 End: 10-22-2019 0.5 mg, Intravenous, Every 5 min PRN, Pain, Starting Pat 10/22/19 at 0819, For 6 doses, PACU (only) [] Give if fentanyl not effective or not ordered. [] Do not give more than 3 mg total. ketorolac tromethamine 10 mg oral tablet (8 sources) Nonsteroidal Anti-inflammatory Drug, Cyclooxygenase Inhibitor Start: 11-01-2021 take 1 tablet by mouth every six hours at mealtime Ketorolac Tromethamine 10 MG Oral Tablet TAKE 1 TABLET BY MOUTH EVERY 6 HOURS WITH FOOD Quantity: 20 Refills: 0 Ordered: 01-Nov-2021 Flavio SCRIPT GIRL-NAILER OPERATOR, Lung Start : 01-Nov-2021 Active End: 04-29-2019 take 2 tablets by mouth every four hours as needed ketorolac 5 MG Tab Take 10 mg by mouth every 4 hours as needed. Max of 40mg/day. Max of 5 days. 0 04/29/2019 Discontinued (Therapy completed) 1 ml medroxyPROGESTERone acetate 150 mg/ml injection (18 sources) Progestin Start: 09-17-2022 Depo-Provera 1 50 MG/ML Intramuscular Suspension 0 SUSP IM Quantity: 0 Refills: 0 Ordered: 17-Sep-2022 DO Start : 17-Sep-2022 Complete Start: 06-25-2022 Depo-Provera 1 50 MG/ML Intramuscular Suspension 0 SUSP IM Quantity: 0 Refills: 0 Ordered: 25-Jun-2022 Donan Arias MD Start : 25-Jun-2022 Complete Start: 06-14-2022 MedroxyPROGEST ERone Acetate 150 MG/ML Intramuscular Suspension INJECT EVERY 12 WEEKS DIRECTED Quantity: 1 Refills: 3 Ordered: 14-Jun-2022 Fried SCRIPT GIRL-CNM, SCRIPT GIRL-NAILER OPERATOR, Nancy Start : 14-Jun-2022 Active medroxyPROGESTER one 150 mg/mL intramuscular suspension ; 1 milliliter(s) intramuscular every 3 months/ Patient does not know strength Quantity: 0 Refills: 0 Ordered: 29-May-2022 Belia Smith Generic Substitution Allowed Meperidine (2 sources) Opioid Agonist Start: 07-20-2020 End: 07-20-2020 12.5 mg, Intravenous, Every 5 min PRN, shivering, Starting 07/20/20 at 1157, For 2 doses, PACU (only) Do not give more than 25 mg total. RESTRICTED to use in rigors OR pain management in patients with a documented opioid allergy. Please select this medication s indication. Rigors Start: 10-22-2019 End: 10-22-2019 12.5 mg, Intravenous, Every 5 min PRN, shivering, Starting Pat 10/22/19 at 0819, For 2 doses, PACU (only) Do not give more than 25 mg total. RESTRICTED to use in rigors OR pain management in patients with a documented opioid allergy. Please select this medication s indication. Rigors 2 ml metoclopramide 5 mg/ml injection (1 source) Dopamine-2 Receptor Antagonist Start: 03-23-2025 End: 03-23-2025 10 mg, intravenous, Once, On Sat03/23/25 at 1040, For 1 dose 5 ml midazolam 1 mg/ml injection (1 source) Benzodiazepine Start: 09-25-2023 End: 09-25-2023 midazolam (Versed) injection 1 mg montelukast 10 mg oral tablet (20 sources) Leukotriene Receptor Antagonist Start: 06-25-2019 take 1 tablet by mouth in the evening Montelukast Sodium 10 MG Oral Tablet TAKE 1 TABLET IN THE EVENING. Quantity: 90 Refills: 1 Ordered: 23-Aug-2020 Evelyn Busch DO Start : 25-Jun-2019 Active Comment on above: Source=[place], Medication=MONTELUKAST TAB 10MG, [facility]Source=[facility], OriginatingProvider=, , Duration=30, Quantity=30, Date Last Modified/Filled=30-Oct-2019 naloxone (NARCAN) injection 0.1 mg (2 sources) Start: 07-20-2020 End: 07-20-2020 naloxone (NARCAN) injection 0.1 mg Start: 10-22-2019 End: 10-22-2019 naloxone (NARCAN) injection 0.1 mg naratriptan 2.5 mg oral tablet (20 sources) Serotonin-1b and Serotonin-1d Receptor Agonist Start: 04-29-2019 End: 12-30-2024 take 1 tablet by mouth every four hours Naratriptan HCl - 2.5 MG Oral Tablet TAKE 1 TABLET AT ONSET OF HEADACHE, MAY REPEAT ONCE IN 4 HOURS Quantity: 18 Refills: 0 Ordered: 31-Jan-2021 Evelyn Busch DO Start : 22-Jun-2019 Active Start: 03-13-2019 End: 04-29-2019 naratriptan (AMERGE) 2.5 MG Tab 1 po prn headache max 5mg/day; may repeat in 4 hr x1 8 tablet 3 03/13/2019 04/29/2019 Discontinued (Reorder) take 1 tablet by marycruz th every twenty-four hours as needed naratriptan (AMERGE) 2.5 MG tablet Take 2.5 mg by mouth as needed for migraine Take one (1) tablet at onset of headache; if returns or does not resolve, may repeat after 4 hours; do not exceed five (5) mg in 24 hours. . 0 Active Nurtec 75 MG Oral Tablet Disintegrating (1 source) Start: 10-26-2020 Nurtec 75 MG Oral Tablet Disintegrating Take 1 odt by mouth prn, not to exceed 2 in 24 hours Quantity: 4 Refills: 0 Evelyn Busch DO Start : 26-Oct-2020 Active omeprazole 40 mg delayed release oral capsule (20 sources) Proton Pump Inhibitor Start: 05-26-2019 take 1 capsule by mouth twice daily Omeprazole 40 MG Oral Capsule Delayed Release TAKE 1 CAPSULE TWICE DAILY. Quantity: 180 Refills: 3 Ordered: 26-Oct-2020 Evelyn Busch DO Start : 26-May-2019 Active Start: 05-26-2019 take 1 capsule by mo [facility] once daily Omeprazole 40 MG Oral Capsule Delayed Release TAKE 1 CAPSULE Daily Quantity: 90 Refills: 3 Evelyn Busch DO Start : 26-May-2019 Active Omeprazole 20 MG Oral Capsule Delayed Release Quantity: 0 Refills: 0 Ordered: 02-Mar-2020 DO Active Omeprazole 20 MG Oral Capsule Delayed Release Refills: 0 DO Active predniSONE 20 mg oral tablet (10 sources) Start: 07-09-2023 End: 08-06-2023 predniSONE (Deltasone) 20 mg tablet Indications: Strep throat , Acute non-recurrent sinusitis, unspecified location Take 3 tabs (60mg) daily for 3 days, then take 2 tabs (40mg) daily for 3 days, then take 1 tab (20mg) daily for 3 days. 18 tablet 0 07/09/2023 08/06/2023 Discontinued (Therapy completed) Start: 11-10-2020 End: 04-11-2021 take 3 tablets by mouth once daily, then take 2 tablets by mouth once daily, then take 1 tablet by mouth once daily predniSONE 20 MG Oral Tablet TAKE 3 TABLETS DAILY FOR 3 DAYS, THEN 2 TABLETS DAILY FOR 3 DAYS, THEN 1 TABLET DAILY FOR 3 DAYS. Quantity: 18 Refills: 0 Ordered: 10-Nov-2020 Evelyn Busch DO Start : 10-Nov-2020 End : 11-Apr-2021 Complete Start: 03-13-2019 predniSONE 20 MG Tab tablet 3 x 2 days 2 x 2 days 1 x 2 days 1/2 x 2 days then 1/2 po q o d x 2 days 14 tablet 0 03/13/2019 Active 2 ml prochlorperazine 5 mg/ml injection (2 sources) Phenothiazine Start: 07-20-2020 End: 07-20-2020 take 5 mg intravenous route every twenty-four hours as needed 5 mg, Intravenous, Once as needed, nausea, Starting 07/20/20 at 1157, For 1 dose, PACU (only) Administer if ondansetron (Zofran), promethazine (Phenergan), and Metocolopramide (Reglan) ineffective or not ordered, or as directed by anesthesia, as needed for nausea/vomiting Start: 10-22-2019 End: 10-22-2019 take 5 mg intravenous route every twenty-four hours as needed 5 mg, Intravenous, Once as needed, nausea, Starting Apt 10/22/19 at 0819, For 1 dose, PACU (only) Administer if ondansetron (Zofran), promethazine (Phenergan), and Metocolopramide (Reglan) ineffective or not ordered, or as directed by anesthesia, as needed for nausea/vomiting promethazine (Phenergan) 6.25 mg in sodium chloride 0.9% 50 mL IV (1 source) Start: 09-25-2023 End: 09-25-2023 promethazine (Phenergan) 6.25 mg in sodium chloride 0.9% 50 mL IV propranolol hydrochloride 10 mg oral tablet (20 sources) beta-Adrenergic Beltran Start: 10-23-2024 End: 04-16-2025 take 1 tablet by mouth every eight hours as needed propranolol (INDERAL) 10 mg tablet Take 10 mg by mouth three times a day as needed. 10/23/2024 04/16/2025 Discontinued (Course of therapy completed) Start: 11-19-2022 End: 04-17-2025 take 1 tablet by mouth once daily in the morning as needed Propranolol 10 MG tablet Take 1 tablet by mouth Every morning as needed. 10/23/2024 Active Qulipta 60 MG Oral Tablet (20 sources) Start: 01-17-2022 take 1 tablet by mouth once daily Qulipta 60 MG Oral Tablet one tablet once daily Quantity: 30 Refills: 11 Ordered: 19-Jun-2023 [id number] SCRIPT GIRL-NAILER OPERATOR, Lung Start : 17-Jan-2022 Active Aimovig, Ajovy, Emgality, Topiramate and amitriptyline have failed. Please enroll in support program if denied. Start: 01-17-2022 take 1 tablet by marycruz th once daily Qulipta 60 MG Oral Tablet one tablet once daily Quantity: 30 Refills: 11 Ordered: 19-Jun-2023 Flavio SCRIPT GIRL-NAILER OPERATOR, Lung Start : 17-Jan-2022 Active Aimovig, Ajovy, Emgality, Topiramate and amitriptyline have failed. Please enroll in support program if denied. Start: 01-17-2022 take 1 tablet by marycruz th once daily Qulipta 60 MG Oral Tablet one tablet once daily Quantity: 30 Refills: 5 Ordered: 29-Jan-2023 Simeon SCRIPT GIRL-NAILER OPERATOR, Tammy Start : 17-Jan-2022 Active Aimovig, Ajovy, Emgality, Topiramate and amitriptyline have failed. Please enroll in support program if denied. Start: 01-17-2022 take 1 tablet by marycruz th once daily Qulipta 60 MG Oral Tablet one tablet once daily Quantity: 30 Refills: 5 Ordered: 17-Jan-2022 Flavio SCRIPT GIRL-NAILER OPERATOR, Lung Start : 17-Jan-2022 Active Aimovig, Ajovy, Emgality, Topiramate and amitriptyline have failed. Please enroll in support program if denied. rimegepant 75 mg disintegrating oral tablet (2 sources) Start: 10-26-2020 Nurtec 75 MG O ral Tablet Disintegrating Take 1 odt by mouth prn, not to exceed 2 in 24 hours Quantity: 4 Refills: 0 Ordered: 26-Oct-2020 Evelyn Busch DO Start : 26-Oct-2020 Active sincalide 0.005 mg injection (1 source) Cholecystokinin Analog Start: 08-02-2023 End: 08-02-2023 sincalide (Kinevac) injection 1.9 mcg Start: 08-02-2023 End: 08-02-2023 sincalide (Kinevac) injectio n 1.9 mcg 1000 ml sodium chloride 9 mg/ml injection (1 source) Start: 03-23-2025 End: 03-23-2025 1,000 mL, intravenous, at 999 mL/hr, Administer over 1 Hours, Once, On Sat03/23/25 at 1040, For 1 dose sucralfate 1000 mg oral tablet (3 sources) Aluminum Complex Start: 08-06-2023 End: 08-13-2023 take 1 tablet by mouth four times daily sucralfate (Carafate) 1 gram tablet Indications: RUQ abdominal pain , Epigastric pain Take 1 tablet (1 g) by mouth 4 times a day for 7 days. Mix with a small amount of water and take as a slurry. 28 tablet 0 08/06/2023 08/13/2023 technetium Tc-99m mebrofenin (Choletec) radio-isotope injection 6 millicurie (1 source) Start: 08-02-2023 End: 08-02-2023 technetium Tc-99m mebrofenin (Choletec) radio-isotope injection 6 millicurie topiramate 25 mg oral tablet (15 sources) Start: 07-23-2019 End: 07-20-2020 topiramate (TOPAMAX) 25 MG tablet Start: 06-19-2019 take 1 tablet by marycruz th twice daily Topiramate 50 MG Oral Tablet TAKE 1 TABLET TWICE DAILY. Quantity: 60 Refills: 3 Ordered: 28-Dec-2019 Evelyn Busch DO Start : 19-Jun-2019 Active Comment on above: Source=Surescripts, Medication=TOPIRAMATE TAB 50MG, [facility], OriginatingProvider=, , Duration=30, Quantity=60, Date Last Modified/Filled=30-Oct-2019 1 ml triamcinolone acetonide 40 mg/ml injection (2 sources) Corticosteroid Start: 018 End: 018 triamcinolone acetonide (KENALOG-40) injection 20 mg Start: 12-30-2017 End: 12-30-2017 triamcinolone acetonide (KIARA ALOG-40) injection 20 mg Trudhesa 0.725 MG/ACT Nasal Aerosol Solution (20 sources) Start: 10-18-2021 Trudhesa 0.725 MG/ACT Nasal Aerosol Solution USE 1 SPRAY IN EACH NOSTRIL NEEDED AT ONSET OF HEADACHE. MAY REPEAT IN 1 HOUR IF NEEDED. MAXIMUM 2 DOSES PER DAY OR 3 DOSES WITHIN 7 DAYS. PRIME WITH 4 PUMPS PRIOR TO EACH USE. Quantity: 8 Refills: 5 Ordered: 19-Jun-2023 [id number] APRN-NAILER OPERATOR, Lung Start : 18-Oct-2021 Active Ibuprofen, Tylenol, Naratriptan, sumatriptan, Nurtec, Ubrelvy have failed. Start: 10-18-2021 Trudhesa 0.725 MG/ACT Nasal Aerosol Solution USE 1 SPRAY IN EACH NOSTRIL NEEDED AT ONSET OF HEADACHE. MAY REPEAT IN 1 HOUR IF NEEDED. MAXIMUM 2 DOSES PER DAY OR 3 DOSES WITHIN 7 DAYS. PRIME WITH 4 PUMPS PRIOR TO EACH USE. Quantity: 8 Refills: 5 Ordered: 19-Jun-2023 Flavio CRUZ-NAILER OPERATOR, Lung Start : 18-Oct-2021 Active Ibuprofen, Tylenol, Naratriptan, sumatriptan, Nurtec, Ubrelvy have failed. Start: 10-18-2021 Trudhesa 0.725 MG/ACT Nasal Aerosol Solution USE 1 SPRAY IN EACH NOSTRIL NEEDED AT ONSET OF HEADACHE. MAY REPEAT IN 1 HOUR IF NEEDED. MAXIMUM 2 DOSES PER DAY OR 3 DOSES WITHIN 7 DAYS. PRIME WITH 4 PUMPS PRIOR TO EACH USE. Quantity: 8 Refills: 5 Ordered: 15-Aug-2022 Flavio CRUZ-NAILER OPERATOR, Lung Start : 18-Oct-2021 Active Ibuprofen, Tylenol, Naratriptan, sumatriptan, Nurtec, Ubrelvy have failed. Start: 10-18-2021 take 1 dose nasal ro august every twenty-four hours Trudhesa 0.725 MG/ACT Nasal Aerosol Solution One spray (0.725 mg) into each nostril (total of 2 sprays per dose) per 24 hours Quantity: 2 Refills: 5 Ordered: 18-Oct-2021 Flavio CRUZ-NAILER OPERATOR, Lung Start : 18-Oct-2021 Active Problems Active Problems Problem Classification Problem Date Documented Da te Episodic/Chronic Abdominal pain (20 sources) Right upper quadrant pain; Translations: [Abdominal pain, right upper quadrant] Onset: 2 10-02-2022 Episodic Comment on above: ABD PAIN Allergic reactions (17 sources) Allergy status to penicillin; Translations: [Urticaria] Onset: 2 10-02-2023 Episodic Cardiac dysrhythmias (20 sources) Ventricular premature beats; Translations: [Other premature beats] Onset: 4 01-09-2024 Chronic Cardiac dysrhythmias (20 sources) Palpitations; Translations: [Palpitations] Onset: 2 Episodic Chronic obstructive pulmonary disease and bronchiectasis (20 sources) Bronchitis; Translations: [Bronchitis, not specified as acute or chronic] Episodic Contraceptive and procreative management (20 sources) Patient encounter status; Translations: [Unspecified contraceptive management] 03-03-2025 Episodic Diabetes or abnormal glucose tolerance complicating ; childbirth; or the puerperium (8 sources) Abnormal glucose level; Translations: [Abnormal glucose complicating ] Onset: 5 Resolved: 5 06-14-2025 Episodic E Codes: Adverse effects of medical drugs (4 sources) Penicillin adverse reaction; Translations: [Adverse effect of penicillins, initial encounter] Onset: 5 06-03-2025 Episodic Esophageal disorders (20 sources) Gastroesophageal reflux disease; Translations: [Esophageal reflux] Chronic Fluid and electrolyte disorders (3 sources) Hypokalemia; Translations: [Hypopotassemia] Onset: 2 10-02-2022 Episodic Headache; including migraine (20 sources) New daily persistent headache; Translations: [Refractory migraine without aura] Onset: 9 03-13-2019 Chronic Headache; including migraine (20 sources) Headache; Translations: [Headache] 03-23-2025 Episodic Headache; including migraine (3 sources) Acute headache; Translations: [Headache; including migraine] Onset: 5 Hemorrhage during ; abruptio placenta; placenta previa (13 sources) Low lying placenta; Translations: [Low lying placenta NOS or without hemorrhage, second trimester] Onset: 5 04-16-2025 Episodic Immunizations and screening for infectious disease (3 sources) Vaccination needed; Translations: [Encounter for immunization] Onset: 5 06-11-2025 Episodic Joint disorders and dislocations; trauma-related (14 sources) Patellofemoral syndrome of left knee; Translations: [Disorder of left patellofemoral joint] Onset: 9 09-15-2019 Menstrual disorders (2 sources) Irregular periods; Translations: [Irregular menstruation, unspecified] Onset: 5 11-20-2024 Chronic Mycoses (7 sources) Candidiasis of vagina; Translations: [Vaginal yeast infection] Onset: 5 02-01-2025 Episodic Nausea and vomiting (20 sources) Nausea and vomiting; Translations: [Nausea with vomiting] Onset: 2 10-02-2022 Episodic Nonspecific chest pain (20 sources) Atypical chest pain; Translations: [Other chest pain] Onset: 2 Episodic Other aftercare (1 source) Other superintendent terminal (current) drug therapy; Translations: [Other correction (current) drug therapy] Onset: 2 Episodic Other circulatory disease (1 source) Elevated blood-pressure reading without diagnosis of hypertension; Translations: [Elevated blood-pressure reading, without diagnosis of hypertension] 03-19-2025 Episodic Other complications of (17 sources) Obesity; Translations: [Obesity complicating , unspecified trimester] Onset: 5 03-03-2025 Chronic Other complications of (2 sources) Anemia in mother complicating , childbirth AND/OR puerperium; Translations: [Anemia complicating , third trimester] Onset: 5 06-14-2025 Chronic Other complications of (1 source) Anemia complicating , third trimester; Translations: [Antepartum anemia complicating in third trimester (HCC)] Onset: 5 Chronic Other complications of (1 source) Obesity complicating , unspecified trimester; Translations: [Obesity in (HCC)] Onset: 5 Chronic Other complications of (1 source) Supervision of high risk , unspecified, second trimester; Translations: [Encounter for supervision of high risk in second trimester, antepartum (HCC)] Onset: 5 Episodic Other complications of (1 source) Supervision of high risk , unspecified, third trimester; Translations: [Supervision of high risk in third trimester (HCC)] Onset: 5 Episodic Other complications of (1 source) Supervision of high risk , unspecified, unspecified trimester; Translations: [Supervision of high risk , antepartum (HCC)] Onset: 5 Episodic Other connective tissue disease (2 sources) Pain in left foot; Translations: [Pain in left foot] 12-27-2023 Episodic Other gastrointestinal disorders (20 sources) Irritable bowel syndrome; Translations: [Irritable bowel syndrome] Chronic Other gastrointestinal disorders (20 sources) Chronic constipation; Translations: [Constipation, unspecified] Episodic Other gastrointestinal disorders (20 sources) Abdominal bloating; Translations: [Flatulence, eructation, and gas pain] Episodic Other gastrointestinal disorders (4 sources) Abdominal distension (gaseous); Translations: [Abdominal distension (gaseous)] Onset: 3 Episodic Other hereditary and degenerative nervous system conditions (20 sources) Isolated cervical dystonia; 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 Other hereditary and degenerative nervous system conditions (1 source) Spasmodic torticollis; Translations: [Spasmodic torticollis] Onset: 2 Chronic Other injuries and conditions due to external causes (20 sources) Contusion; Translations: [Contusion of unspecified site] Episodic Other nervous system disorders (1 source) Other chronic pain; Translations: [Other chronic pain] Onset: 3 Chronic Other nervous system disorders (8 sources) Neuropathy; Translations: [Polyneuropathy, unspecified] Onset: 4 01-09-2024 Chronic Other nervous system disorders (1 source) Paresthesia; Translations: [Bilateral numbness and tingling of arms and legs] Episodic Other nervous system disorders (1 source) Postoperative pain ; Translations: [Other acute postprocedural pain] 09-25-2023 Episodic Other non-traumatic joint disorders (7 sources) Knee pain; Translations: [Pain in joint, lower leg] Episodic Other non-traumatic joint disorders (20 sources) Instability of left patellofemoral joint; Translations: [Other joint derangement, not elsewhere classified, lower leg] Episodic Other non-traumatic joint disorders (20 sources) Pain in left knee; Translations: [Left knee pain] Episodic Other non-traumatic joint disorders (3 sources) Joint pain; Translations: [Pain in unspecified joint] 01-09-2024 Episodic Other nutritional; endocrine; and metabolic disorders (1 source) Drug-induced obesity; Translations: [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] 12-30-2024 Chronic Other nutritional; endocrine; and metabolic disorders (2 sources) Obese class II; Translations: [Obesity, Class II, BMI 35-39.9] Onset: 5 12-30-2024 Chronic Other nutritional; endocrine; and metabolic disorders (2 sources) Drug-induced obesity; Translations: [Drug-induced obesity] Onset: Chronic Other nutritional; endocrine; and metabolic disorders (2 sources) Body mass index (BMI) 36.0-36.9, adult; Translations: [Body mass index (BMI) 36.0-36.9, adult] Onset: Chronic Other and delivery including normal (16 sources) Primigravida; Translations: [Encounter for supervision of normal first , first trimester] Onset: 5 01-29-2025 Episodic Other screening for suspected conditions (not mental disorders or infectious disease) (20 sources) Urine test negative; Translations: [ examination or test, negative result] Onset: Episodic Other upper respiratory disease (20 sources) Seasonal allergy; Translations: [Allergic rhinitis, cause unspecified] Chronic Other upper respiratory infections (3 sources) Acute pharyngitis, unspecified; Translations: [Streptococcal pharyngitis] Episodic Residual codes; unclassified (1 source) History of operative procedure on knee; Translations: [S/P arthroscopic surgery of left knee] Episodic Residual codes; unclassified (2 sources) History of arthroscopy of knee joint; Translations: [S/P arthroscopy of left knee] Episodic Residual codes; unclassified (20 sources) Localized edema; Translations: [Edema of left lower limb] Episodic Residual codes; unclassified (20 sources) History finding; Translations: [Other specified conditions influencing health status] Episodic Residual codes; unclassified (2 sources) Gestation period, 13 weeks; Translations: [13 weeks gestation of ] 03-03-2025 Episodic Residual codes; unclassified (1 source) Gestation period, 16 weeks; Translations: [16 weeks gestation of ] 03-19-2025 Episodic Residual codes; unclassified (1 source) Gestation period, 20 weeks; Translations: [20 weeks gestation of ] 04-16-2025 Episodic Residual codes; unclassified (1 source) Gestation period, 27 weeks; Translations: [27 weeks gestation of ] 06-03-2025 Episodic Residual codes; unclassified (1 source) Gestation period, 28 weeks; Translations: [28 weeks gestation of ] 06-11-2025 Episodic Residual codes; unclassified (1 source) 36 weeks gestation of ; Translations: [36 weeks gestation of (HCC)] Onset: Episodic Residual codes; unclassified (1 source) 34 weeks gestation of ; Translations: [34 weeks gestation of (HCC)] Onset: 5 Episodic Residual codes; unclassified (1 source) 33 weeks gestation of ; Translations: [33 weeks gestation of (HCC)] Onset: 5 Episodic Residual codes; unclassified (1 source) 32 weeks gestation of ; Translations: [32 weeks gestation of (HCC)] Onset: 5 Episodic Residual codes; unclassified (1 source) 30 weeks gestation of ; Translations: [30 weeks gestation of (HCC)] Onset: 5 Episodic Residual codes; unclassified (1 source) 28 weeks gestation of ; Translations: [28 weeks gestation of (HCC)] Onset: Episodic Residual codes; unclassified (1 source) 27 weeks gestation of ; Translations: [27 weeks gestation of (HCC)] Onset: 5 Episodic Residual codes; unclassified (1 source) 24 weeks gestation of ; Translations: [24 weeks gestation of (HCC)] Onset: 5 Episodic Unclassified (2 sources) LIGHT HEADED, DOUBLE VISION 05-29-2022 Comment on above: LIGHT HEADED, DOUBLE VISION Unclassified (1 source) FUV 04-18-2022 Comment on above: FUV Unclassified (1 source) $25 COPAY BACK AND NECK PAIN/MIGRAINES 05-11-2022 Comment on above: $25 COPAY BACK AND N NOELLE PAIN/MIGRAINES Unclassified (1 source) DEPO 09-17-2022 Comment on above: DEPO Unclassified (1 source) NPV/ AUTONOMIC 08-19-2022 Comment on above: NPV/ AUTONOMIC Unclassified (1 source) WT. 180 NEAR SYNCOPY, DR. MARION JARVIS 08-22-2022 Comment on above: WT. 180 NEAR SYNCOPY , DR. MARION JARVIS Unclassified (1 source) ER FUV / LOW POTASSIUM 10-02-2022 Comment on above: ER FUV / LOW POTASSI UM Unclassified (2 sources) [facility] Commercial Collections Specialist Review Required; Translations: [[facility] Commercial Collections Specialist Review Required] Onset: 3 Unclassified (2 sources) Chronic migraine with aura, not intractable, without status migrainosus; Translations: [Chronic migraine with aura, not intractable, without status migrainosus] Onset: 4 Unclassified (1 source) Obesity, class 2; Translations: [Obesity, class 2] Onset: 5 Unclassified (11 sources) [facility] Education - COMMON Onset: 5 01-29-2025 Unclassified (11 sources) Education - [place] Onset: 5 01-29-2025 Unclassified (1 source) Chronic migraine with aura without status migrainosus, not intractable; Translations: [Chronic migraine with aura without status migrainosus, not intractable] Onset: 5 Urinary tract infections (4 sources) Urinary tract infectious disease; Translations: [Urinary tract infection, site not specified] Onset: 5 03-23-2025 Episodic Past or Other Problems Problem Classification Problem Date Documented Da te Episodic/Chronic Biliary tract disease (14 sources) Biliary dyskinesia; Translations: [Other specified diseases of gallbladder] Onset: 09-05-2023 09-05-2023 Episodic Blindness and vision defects (2 sources) Other visual disturbances; Translations: [Other visual disturbances] Onset: 05-29-2022 Episodic Conditions associated with dizziness or vertigo (4 sources) Lightheadedness; Translations: [Dizziness and giddiness] Onset: 05-29-2022 05-29-2022 Episodic Malaise and fatigue (2 sources) Other fatigue; Translations: [Other fatigue] Onset: 05-29-2022 Episodic Mood disorders (1 source) Mood disorders Onset: 12-30-2024 12-30-2024 Other aftercare (1 source) Postoperative visit; Translations: [Encounter for other specified surgical aftercare] 10-10-2023 Episodic Other circulatory disease (5 sources) Postural orthostatic tachycardia syndrome ; Translations: [Postural orthostatic tachycardia syndrome (POTS)] Onset: 01-09-2024 Episodic Other complications of (15 sources) High risk ; Translations: [Supervision of high risk , unspecified, unspecified trimester] Onset: 01-29-2025 03-03-2025 Episodic Other connective tissue disease (1 source) Muscle weakness; Translations: [Muscle weakness (generalized)] Episodic Other gastrointestinal disorders (20 sources) Personal history of other diseases of the digestive system; Translations: [History of irritable bowel syndrome] Onset: 08-27-2019 08-27-2019 Episodic Other nervous system disorders (1 source) Paresthesia of hand ; Translations: [Numbness and tingling in both hands] Episodic Other non-traumatic joint disorders (4 sources) Pain in unspecified joint; Translations: [Pain in unspecified joint] Onset: 03-10-2024 Episodic Residual codes; unclassified (1 source) 20 weeks gestation of ; Translations: [20 weeks gestation of (HCC)] Onset: 04-16-2025 Episodic Residual codes; unclassified (1 source) 16 weeks gestation of ; Translations: [16 weeks gestation of (HCC)] Onset: 03-19-2025 Episodic Residual codes; unclassified (1 source) 13 weeks gestation of ; Translations: [13 weeks gestation of (HCC)] Onset: 03-03-2025 Episodic Screening and history of mental health and substance abuse codes (12 sources) H/O: depression; Translations: [Personal history of other mental and behavioral disorders] Onset: 01-29-2025 01-29-2025 Episodic Spondylosis; intervertebral disc disorders; other back problems (20 sources) Cervico-occipital neuralgia; Translations: [Other syndromes affecting cervical region] Onset: 06-12-2022 01-09-2024 Episodic Syncope (19 sources) Near syncope; Translations: [Syncope and collapse] Onset: 05-29-2022 Episodic Unclassified (2 sources) Patient encounter status; Translations: [Contraception management] Unclassified (20 sources) Finding of menstrual bleeding; Translations: [Menstruation] Comment on above: AGE 12; Unclassified (2 sources) [facility] Commercial Collections Specialist Review Required; Translations: [[facility] Commercial Collections Specialist Review Required] Onset: 05-13-2023 Unclassified (16 sources) Onset: 08-06-2023 Resolved: 10-23-2024 08-06-2023 Unclassified (2 sources) Chronic migraine with aura, not intractable, without status migrainosus; Translations: [Chronic migraine with aura, not intractable, without status migrainosus] Onset: 01-09-2024 Unclassified (1 source) Obesity, class 2; Translations: [Obesity, class 2] Onset: 12-30-2024 NEGATED: Highlighted row has not occurred!Residual codes; unclassified (20 sources) Disease Episodic Results Test Name Value Interpretation Reference Range Facility ROUTINE, GROUP B ST REPTOCOCCUS BY PCRon 08-06-2025 ROUTINE, GROUP B STREPTOCOCCUS BY PCR Not detected Normal [facility] Comment on above: Performed By: #### G BPCR ####[facility] LABCLIA [id number] [place] [address] [place] CBC W Auto Differential pane l (Bld)on 07-23-2025 Basophils (Bld) [#/Vol] 0.06 10*3/uL Normal <0.11 [facility] Comment on above: Order Comment: Speci men Type: BLOOD SPECIMENOrdering Facility: [facility] Address: [address] [place] [address] Performed By: #### 5 7021-8 ####[facility] [id number] [place] [address] [place] Basophils/100 WBC (Bld) 0.5 % Normal [facility] Comment on above: Order Comment: Speci men Type: BLOOD SPECIMENOrdering Facility: [facility] Address: [address] [place] [address] Performed By: #### 5 7021-8 ####[facility] [id number] [place] [address] [place] Differential cell count method Nom (Bld) Auto Normal [facility] Comment on above: Order Comment: Speci men Type: BLOOD SPECIMENOrdering Facility: [facility] Address: [address] [place] [address] Performed By: #### 5 7021-8 ####[facility] [id number] [place] [address] [place] Eosinophils (Bld) [#/Vol] 0.13 10*3/uL Normal <0.46 [facility] Comment on above: Order Comment: Speci men Type: BLOOD SPECIMENOrdering Facility: [facility] Address: [address] [place] [address] Performed By: #### 5 7021-8 ####[facility] BEACHESNCMichael [id number] [place] [address] [place] Eosinophils/100 WBC (Bld) 1.1 % Normal [facility] Comment on above: Order Comment: Speci men Type: BLOOD SPECIMENOrdering Facility: [facility] Address: [address] [place] [address] Performed By: #### 5 7021-8 ####[facility]ESNCM[facility] [id number] [place] [address] [place] Erythrocyte distribution width (RBC) [Ratio] 13.7 % Normal 11.5-15.0 [facility] Comment on above: Order Comment: Speci men Type: BLOOD SPECIMENOrdering Facility: [facility] Address: [address] [place] [address] Performed By: #### 5 7021-8 ####[facility] BEACHESNCLI [id number] [place] [address] [place] Hematocrit (Bld) [Volume fraction] 30.3 % Low 36.0-46.0 [facility] Comment on above: Order Comment: Speci men Type: BLOOD SPECIMENOrdering Facility: [facility] Address: [address] [place] [address] Performed By: #### 5 7021-8 ####[facility] WALESKAArchanaNCSUN [id number] [place] [address] [place] Hemoglobin (Bld) [Mass/Vol] 10.1 g/dL Low 11.5-15.5 [facility] Comment on above: Order Comment: Speci men Type: BLOOD SPECIMENOrdering Facility: [facility] Address: [address] [place], [place] [id number] Performed By: #### 5 7021-8 ####[facility] BEACHESNCMichael [id number] [place] [address] [place] Immature granulocytes (Bld) [#/Vol] 0.08 10*3/uL Normal <0.10 [facility] Comment on above: Order Comment: Speci men Type: BLOOD SPECIMENOrdering Facility: [facility] Address: [address] [place], [place] [address] Performed By: #### 5 7021-8 ####[facility] BEACHESNCLIA [id number] [place] [address] [place] Immature granulocytes/100 WBC (Bld) 0.7 % Normal [facility] Comment on above: Order Comment: Speci men Type: BLOOD SPECIMENOrdering Facility: [facility] Address: [address] [place] [address] Performed By: #### 5 7021-8 ####[facility] BEACHESNCLIA [id number] [place] [address] [place] Lymphocytes (Bld) [#/Vol] 2.45 10*3/uL Normal 1.00-4.00 [facility] Comment on above: Order Comment: Speci men Type: BLOOD SPECIMENOrdering Facility: [facility] Address: [address] [place] [address] Performed By: #### 5 7021-8 ####[facility] BEACHESPEPPERLIA [id number] [place] [address] [place] Lymphocytes/100 WBC (Bld) 20.6 % Normal [facility] Comment on above: Order Comment: Speci men Type: BLOOD SPECIMENOrdering Facility: [facility] Address: [address] [place] [address] Performed By: #### 5 7021-8 ####[facility] [id number] [place] [address] [place] MCH (RBC) [Entitic mass] 28.9 pg Normal 26.0-34.0 [facility] Comment on above: Order Comment: Speci men Type: BLOOD SPECIMENOrdering Facility: [facility] Address: [address] [place] [address] Performed By: #### 5 7021-8 ####[facility] [id number] [place] [address] [place] MCHC (RBC) [Mass/Vol] 33.3 g/dL Normal 30.5-36.0 [facility] Comment on above: Order Comment: Speci men Type: BLOOD SPECIMENOrdering Facility: [facility] Address: [address] [place] [address] Performed By: #### 5 7021-8 ####[facility]ENTERLI [id number] [place] [address] [place] MCV (RBC) [Entitic vol] 86.6 fL Normal 80.0-100.0 [facility] Comment on above: Order Comment: Speci men Type: BLOOD SPECIMENOrdering Facility: [facility] Address: [address] [place] [address] Performed By: #### 5 7021-8 ####[facility] [id number] [place] [address] [place] Monocytes (Bld) [#/Vol] 0.98 10*3/uL High <0.87 [facility] Comment on above: Order Comment: Speci men Type: BLOOD SPECIMENOrdering Facility: [facility] Address: [address] [place] [address] Performed By: #### 5 7021-8 ####[facility] CENTERLIA [id number] [place] [address] [place] Monocytes/100 WBC (Bld) 8.2 % Normal [facility] Comment on above: Order Comment: Speci men Type: BLOOD SPECIMENOrdering Facility: [facility] Address: [address] [place] [address] Performed By: #### 5 7021-8 ####[facility] [id number] [place] [address] [place] Neutrophils (Bld) [#/Vol] 8.22 10*3/uL High 1.45-7.50 [facility] Comment on above: Order Comment: Speci men Type: BLOOD SPECIMENOrdering Facility: [facility] Address: [address] [place] [address] Performed By: #### 5 7021-8 ####[facility] [id number] [place] [address] [place] Neutrophils/100 WBC (Bld) 68.9 % Normal [facility] Comment on above: Order Comment: Speci men Type: BLOOD SPECIMENOrdering Facility: [facility] Address: [address] [place] [address] Performed By: #### 5 7021-8 ####[facility] [id number] [place] [address] [place] Nucleated RBC (Bld) [#/Vol] 10*3/uL Normal <0.01 [facility] Comment on above: Order Comment: Speci men Type: BLOOD SPECIMENOrdering Facility: [facility] Address: [address] [place] [address] Performed By: #### 5 7021-8 ####[facility] [id number] [place] [address] [place] Nucleated RBC/100 WBC (Bld) [Ratio] 0.0 /100 WBC Normal [facility] Comment on above: Order Comment: Speci men Type: BLOOD SPECIMENOrdering Facility: [facility] Address: [address] [place] [address] Performed By: #### 5 7021-8 ####[facility] WALESKARUTLEDGENCSUN [id number] [place] [address] [place] Platelet mean volume (Bld) [Entitic vol] 9.0 fL Normal 9.0-12.7 [facility] Comment on above: Order Comment: Speci men Type: BLOOD SPECIMENOrdering Facility: [facility] Address: [address] [place] [address] Performed By: #### 5 7021-8 ####[facility] WALESKARUTLEDGENCKIYAA [id number] [place] [address] [place] Platelets (Bld) [#/Vol] 354 10*3/uL Normal 150-400 [facility] Comment on above: Order Comment: Speci men Type: BLOOD SPECIMENOrdering Facility: [facility] Address: [address] [place] [address] Performed By: #### 5 7021-8 ####[facility] BEACHESNCLIA [id number] [place] [address] [place] RBC (Bld) [#/Vol] 3.50 10*6/uL Low 3.90-5.20 [facility] Comment on above: Order Comment: Speci men Type: BLOOD SPECIMENOrdering Facility: [facility] Address: [address] [place] [address] Performed By: #### 5 7021-8 ####[facility] WALESKATOWNCLIA [id number] [place] [address] [place] WBC (Bld) [#/Vol] 11.92 10*3/uL High 3.70-11.00 [facility] Comment on above: Order Comment: Speci men Type: BLOOD SPECIMENOrdering Facility: [facility] Address: [address] [place] [id number] Performed By: #### 5 7021-8 ####[facility] WALESKATOWNCLIA [id number] [address] [place] CNOVon 07-09-2025 CNOV Office Visit (ALLEST ) ----- JENNIFER HENLEY ([id number]) 1995 F Date Time Provider Department 07/09/25 1:30 PM TAYLOR WOOTEN During your visit today, we recorded the following information about you: Pulse Weight 94/minute 108.1 kg Taylor Wooten APRN.NAILER OPERATOR 07/09/2025 4:12 PM Signed Allergy AND Clinical Immunology HPI Jennifer Henley is a 29 year old female who presents for oral challenge to Amoxicillin. The following assessment and plan was recorded and discussed at her last visit on 06/04/25: Assessment/Plan: 1. Adverse effect of penicillin, initial encounter - ICD9: E930.0, ICD10: T36.0X5A History of rash in infancy. Skin testing negative suggesting that she does not have an IgE-mediated penicillin allergy. Need to complete oral challenge for definitive evaluation. - Return after 28 weeks for graded oral challenge to Amoxicillin - In the meantime, continue to avoid penicillin antibiotics - Advised no antihistamines 5 days prior to challenge visit 2. Adverse effect of cephalosporin, initial encounter - ICD9: E930.5, ICD10: T36.1X5A History of generalized pruritus after taking cephalexin last year. Low suspicion for IgE-mediated allergy. Discussed returning for oral challenge when no longer . In the meantime, continue to avoid cephalexin, taking equally efficacious alternatives as indicted. 3. 27 weeks gestation of - ICD9: V22.2, ICD10: Z3A.27 Discussed benefit of penicillin allergy evaluation in the context of Taylor Wooten APRN.NAILER OPERATOR Interim History Patient is 32 weeks . Reports feeling well with no complaints. No antihistamines in the last 5 days. ALLERGIES Allergen Reactions Penicillins Hives Adhesive Hives Sutures Hives Cephalexin Itching PAST MEDICAL HISTORY Diagnosis Date IBS (irritable bowel syndrome) Migraine headache with aura POTS (postural orthostatic tachycardia syndrome) PAST SURGICAL HISTORY Procedure Laterality Date KNEE LEFT OP SURGERY Left REMOVAL GALLBLADDER FAMILY HISTORY Problem Relation Age of Onset other (scleroderma) Mother other (congestive heart) Father Alzheimer's Disease Maternal Grandmother SOCIAL HISTORY[1] Current Outpatient Medications on File Prior to Visit Medication Sig ferrous sulfate EC 324 mg (65 mg iron) TbEC Take 325 mg by mouth every other day. famotidine (PEPCID) 20 mg tablet Take 1 tablet by mouth two times a day. aspirin, enteric coated (ECOTRIN LOW STRENGTH) 81 mg EC tablet Take 1 tablet by mouth once daily. vits18/iron/folic/dss (PRENACARE ORAL) Take 1 tablet by mouth once daily. Blood-Glucose Sensor (DEXCOM G7 SENSOR) joni 3 devices as directed. Blood-Glucose Meter,Continuous (DEXCOM G7 FINANCE ASSOCIATE) misc 1 device as directed. blood sugar diagnostic test strip Use as directed to check glucose levels up to seven times daily. Lancets Use as directed to check glucose levels up to seven times daily. alcohol swabs (ALCOHOL PREP PADS) Use as directed to check glucose levels up to seven times daily. cyproheptadine (PERIACTIN) 4 mg tablet Take 1 tablet by mouth three times a day as needed (migraines). labetalol (TRANDATE) 100 mg tablet Take 100 mg by mouth at bedtime as needed. No current facility-administered medications on file prior to visit. Review of Systems Constitutional: Negative for chills, fatigue and fever. HENT: Negative for congestion and rhinorrhea. Respiratory: Negative for cough, chest tightness, shortness of breath and wheezing. Cardiovascular: Negative for chest pain, palpitations and leg swelling. Gastrointestinal: Negative for abdominal pain, constipation, diarrhea, nausea and vomiting. Skin: Negative for rash. Pulse 91, weight 108.1 kg (238 lb 5.1 oz), last menstrual period 11/27/2024, SpO2 97%. Body mass index is 40.91 kg/m?. Physical Exam Constitutional: General: She is not in acute distress. HENT: Mouth/Throat: Mouth: Mucous membranes are moist. Pharynx: Oropharynx is clear. No oropharyngeal exudate or posterior oropharyngeal erythema. Cardiovascular: Rate and Rhythm: Normal rate and regular rhythm. Heart sounds: Normal heart sounds. Pulmonary: Effort: Pulmonary effort is normal. No respiratory distress. Breath sounds: Normal breath sounds. Skin: Findings: No rash. Neurological: Mental Status: She is alert and oriented to person, place, and time. Penicillin Skin Testing: ALLERGEN (06/04/25): Penicillin G (Percutaneous): 0 mm, 0 mm PrePen (Percutaneous): 0 mm, 0 mm Ampicillin (Percutaneous): 0 mm, 0 mm CONTROL: 0 mm, 0 mm HISTAMINE: 4 mm, 10 mm Penicillin G (Intradermal): 0 mm, 0 mm PrePen (Intradermal): 0 mm, 0 mm Ampicillin (Intradermal): 0 mm, 0 mm CONTROL: 7 mm, 12 mm Ingestion Challenge: I have reviewed the risks (including the potential for life threateni (more content not included)... Normal [facility] 06-25-2025 [facility] Telephone ([facility]) ----- JENNIFER HENLEY ([id number]) 1995 F Date Time Provider Department 06/25/25 JOY DENNISON [facility] During your visit today, we recorded the following information about you: Joy Dennison, SHARON 06/25/2025 3:[address] Valencia, Pt is interested in a CGM to help manage her blood sugars. Dexcom 7 sensors, disp: 3 per month, epic code [id number] Thank you, Joy Dennison RDN, LD, Neli Gonzalez MD 06/29/2025 9:23 AM Signed done. Keisha Gonzalez MA 07/06/2025 3:27 PM Signed Spoke with prior authorization dept to check status, they stated it was still under review, but it is going to be expedited and we will receive a fax with outcome in 36 hours. NIKA Kunz Trisha, RN 07/06/2025 3:42 PM Signed Received denial for the Dexcom7 sensor. OnGreen message sent. Document states: We denied your request because we did not see what we need to approve the device you asked for, (Dexcom G7 sensors). We may be able to approve this device in a certain situation (if you will use the requested device and supplies for long-term use). We do not see that this applies to you. Allergies As of Date: 06/25/2025 Noted Allergy Reaction PENICILLINS 12/30/2017 4 - Hives ADHESIVE 11/20/2024 4 - Hives SUTURES 01/09/2024 4 - Hives CEPHALEXIN 03/10/2024 9 - Itching Date Reviewed: 06/25/2025 Reviewed by: Mary Still MD - Fully Assessed Reason for Visit: Gestational Diabetes [3789] Cmt: CGM Primary Visit Diagnosis:Gestational diabetes mellitus, class A1 (HCC) [O24.410] Order(s):Blood-Glucose Sensor (DEXCOM G7 SENSOR) devi3 devices as directed.Disp: 3 eachRfl: 7 Blood-Glucose Meter,Continuous (DEXCOM G7 FINANCE ASSOCIATE) misc1 device as directed.Disp: 1 eachRfl: 0 Prescriptions as of 07/06/2025 - Blood-Glucose Sensor (DEXCOM G7 SENSOR) joni 3 devices as directed. - Blood-Glucose Meter,Continuous (DEXCOM G7 FINANCE ASSOCIATE) misc 1 device as directed. - ferrous sulfate EC 324 mg (65 mg iron) TbEC Take 325 mg by mouth every other day. - blood sugar diagnostic test strip Use as directed to check glucose levels up to seven times daily. - Lancets Use as directed to check glucose levels up to seven times daily. - alcohol swabs (ALCOHOL PREP PADS) Use as directed to check glucose levels up to seven times daily. - cyproheptadine (PERIACTIN) 4 mg tablet Take 1 tablet by mouth three times a day as needed (migraines). - famotidine (PEPCID) 20 mg tablet Take 1 tablet by mouth two times a day. - labetalol (TRANDATE) 100 mg tablet Take 100 mg by mouth at bedtime as needed. - aspirin, enteric coated (ECOTRIN LOW STRENGTH) 81 mg EC tablet Take 1 tablet by mouth once daily. - vits18/iron/folic/dss (PRENACARE ORAL) Take 1 tablet by mouth once daily. Problem List As Of Date 06/25/2025 Noted Resolved Chronic migraine with aura [G43.E09] 01/09/2024 History of irritable bowel syndrome [Z87.19] 08/27/2019 Postural orthostatic tachycardia syndrome [G90.*01/09/2024 Obesity in (HCC) [O99.210] 01/29/2025 Supervision of high risk , antepartum *01/29/2025 Primigravida in first trimester (HCC) [Z34.01] 01/29/2025 History of depression [Z86.59] 01/29/2025 Penicillin allergy [Z88.0] 03/03/2025 Low-lying placenta without hemorrhage, second t*04/16/2025 Antepartum anemia complicating in thi*06/14/2025 Abnormal glucose complicating (HCC) [*06/14/2025 06/21/2025 Diet controlled gestational diabetes mellitus (*06/21/2025 Prescriptions ordered this encounter Disp Refills Start End DEXCOM G7 SENSOR DEVICE 3 ea* 7 06/29/2025 Route: Misc Si devices as directed. DEXCOM G7 FINANCE ASSOCIATE 1 ea* 0 06/29/2025 Route: Misc Si device as directed. Encounter Status:Closed by EULALIA RONDON on 07/02/25 [facility] CNNURSEon 06-24-2025 CNNURSE Nurse Visit (DEMBHT) ----- JENNIFER HENLEY ([id number]) 1995 F Date Time Provider Department 06/24/25 8:00 AM BRE ZAMORA During your visit today, we recorded the following information about you: Bre Zamora, RN 06/24/2025 9:36 AM Signed DIABETES SELF-MANAGEMENT EDUCATION AND SUPPORT Location: [place] Type of visit: Virtual (with video) individual -- I have communicated my name and active licensure. The patient's identity and physical location were verified at the time of this visit. Either the patient or their legal inbound sales representative has been informed of the risks and benefits of -- and alternatives to -- treatment through a remote evaluation and consents to proceed with the evaluation remotely. 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 Patient states he/she is located at home/work and is the [facility] for duration of this visit. Types of DSMES: Initial/Comprehensive (add to or update ADA spreadsheet) PATIENT'S MAIN CONCERN TODAY: new gestational diabetes diagnosis Support person present for education today: none Cognitive ability: Alert and oriented Motivation to learn: Interested Learning barriers identified by educator: none Method of instruction: written and verbal INTERVENTIONS/TOPICS COVERED: -Diabetes Pathophysiology: gestational diabetes basics -Monitoring: A1c meaning and target <7%, BG targets, rationale for HGM, sharps disposal, testing frequency, and using a home glucose monitor -Healthy Eating: impact of carbs on BG, basic carb counting, foods with carbs, portion sizes, fiber, reading food labels, recommendation for 30 g carb breakfast, 45-60 g carb lunch/dinner, 15-30 g carb snacks, eating out, carb counting tools (books, Internet, smartphone apps), healthy heart options, and always pair protein/healthy fats with meals and snacks that contain carbs -Medications: medication safety/timing, medication side effects, insulin storage, site selection/rotation, pen injection instruction, sharps disposal, reviewed home DM meds, taught new DM meds as noted, basal insulin, and injectable insulin discussed: NPH Insulin -Physical Activity: benefits of exercise, impact of exercise on BG, types of exercise, and exercise safety -Acute Complications: hypoglycemia s/sx/tx, hyperglycemia s/sx/tx, and traveling with diabetes -Chronic Complications: importance of BG control to reduce risks and risks to mom and baby with elevated blood sugars during -Healthy Coping and Support: impact of stress on BG and stress management techniques DIABETES ASSESSMENT: Referring Physician: Dr. Margarita Lazaro Previous Diabetes Education? No What are you hoping to gain from this visit? New gestational diabetes diagnosis In your words, what is gestational diabetes? High blood sugar What concerns you about having gestational diabetes? Having to start insulin Diabetes History: Type of Diabetes: Gestational ( diabetes in ) How far along is your ? Weeks: 29 Does anyone in your family have diabetes? 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 never How often does someone help you read your pill bottles? never How often does someone have to help you take care of your diabetes? never Major stressors: none noted How do you manage stress? reading Do any of the following things get in the way of managing your diabetes? No self-identified issues Health History: Do you use tobacco? No Do you use alcohol? No In the past 12 months have you had any: Hospital Admissions: No ER Visits: Yes, Number of Times? 1 Primary Care Visits: Asked/not answered What are your general feelings about you overall health? Good Medical Issues/Complications: gestational diabetes in To whom are you reporting your blood sugar levels? OB PAST MEDICAL HISTORY Diagnosis Date IBS (irritable bowel syndrome) Migraine headache with aura POTS (postural orthostatic tachycardia syndrome) Most recent A1C Lab Results Component Value Date HBA1C 5.2 03/05/2025 HBA1C 5.4 11/20/2024 Physical Activity: Do you do a regular exercise? Yes; how many days per week 5+ How long each day? Less than 30 min Type of Exercise: walking Sleep: Do you get at least 7 hrs of sleep most nights? yes Curr (more content not included)... Normal [facility] CNPNon 06-21-2025 CNPN Telephone (OBGYWM) ----- JENNIFER HENLEY ([id number]) 1995 F Date Time Provider Department 06/21/25 NELI VALENCIA OBGYWM During your visit today, we recorded the following information about you: Eulalia Rondon RN 06/21/2025 11:14 AM Signed Patient did not pass 3 hr GTT. She has a diagnosis of gestational diabetes. Needs supplies and teaching please. Eulalia Rondon RN 06/21/2025 11:14 AM Signed Patient already has growth ultrasound scheduled for this Saturday. Please file pended orders for supplies and teaching. ASHLEY Quintanilla Lindsey, RN 06/21/2025 11:31 AM Signed Patient notified of results, verbalizes understanding of instructions. Transferred to [facility] to schedule consult appointments. Eulalia Rondon RN Allergies As of Date: 06/21/2025 Noted Allergy Reaction PENICILLINS 12/30/2017 4 - Hives ADHESIVE 11/20/2024 4 - Hives SUTURES 01/09/2024 4 - Hives CEPHALEXIN 03/10/2024 9 - Itching Date Reviewed: 06/11/2025 Reviewed by: Hilda Goins LPN - Fully Assessed Reason for Visit: Gestational Diabetes [3789] Cmt: Primary Visit Diagnosis:Diet controlled gestational diabetes mellitus (GDM) in third trimester (HCC) [O24.410] Order(s):Blood-Glucose MeterUse as directed to check glucose levels up to seven times daily.Disp: 1 eachRfl: 0 blood sugar diagnostic test stripUse as directed to check glucose levels up to seven times daily.Disp: 200 stripRfl: 8 LancetsUse as directed to check glucose levels up to seven times daily.Disp: 200 eachRfl: 8 alcohol swabs (ALCOHOL PREP PADS)Use as directed to check glucose levels up to seven times daily.Disp: 200 eachRfl: 8 CONSULT TO DIABETES EDUCATION DSME [[id number]] Order #: [id number]: 2 FUTURE ENDOCRINOLOGY DIETITIAN VISIT (MNT) [[id number]] Order #: [id number]: 4 FUTURE Prescriptions as of 06/21/2025 - Blood-Glucose Meter Use as directed to check glucose levels up to seven times daily. - blood sugar diagnostic test strip Use as directed to check glucose levels up to seven times daily. - Lancets Use as directed to check glucose levels up to seven times daily. - alcohol swabs (ALCOHOL PREP PADS) Use as directed to check glucose levels up to seven times daily. - cyproheptadine (PERIACTIN) 4 mg tablet Take 1 tablet by mouth three times a day as needed (migraines). - famotidine (PEPCID) 20 mg tablet Take 1 tablet by mouth two times a day. - labetalol (TRANDATE) 100 mg tablet Take 100 mg by mouth at bedtime as needed. - aspirin, enteric coated (ECOTRIN LOW STRENGTH) 81 mg EC tablet Take 1 tablet by mouth once daily. - vits18/iron/folic/dss (PRENACARE ORAL) Take 1 tablet by mouth once daily. Problem List As Of Date 06/21/2025 Noted Resolved Chronic migraine with aura [G43.E09] 01/09/2024 History of irritable bowel syndrome [Z87.19] 08/27/2019 Postural orthostatic tachycardia syndrome [G90.*01/09/2024 Obesity in (HCC) [O99.210] 01/29/2025 Supervision of high risk , antepartum *01/29/2025 Primigravida in first trimester (HCC) [Z34.01] 01/29/2025 History of depression [Z86.59] 01/29/2025 Penicillin allergy [Z88.0] 03/03/2025 Low-lying placenta without hemorrhage, second t*04/16/2025 Antepartum anemia complicating in thi*06/14/2025 Abnormal glucose complicating (HCC) [*06/14/2025 06/21/2025 Diet controlled gestational diabetes mellitus (*06/21/2025 Prescriptions ordered this encounter Disp Refills Start End BLOOD-GLUCOSE METER 1 ea* 0 06/21/2025 06/22/2025 Cmt: Per Insurance Coverage Sig: Use as directed to check glucose levels up to seven times daily. BLOOD SUGAR DIAGNOSTIC STRIPS 200 * 8 06/21/2025 Cmt: Per Insurance Coverage Sig: Use as directed to check glucose levels up to seven times daily. LANCETS 200 * 8 06/21/2025 Cmt: Per Insurance Coverage Sig: Use as directed to check glucose levels up to seven times daily. ALCOHOL SWABS 200 * 8 06/21/2025 Cmt: Per Insurance Coverage Sig: Use as directed to check glucose levels up to seven times daily. Encounter Status:Closed by EULALIA RONDON on 06/21/25 Normal [facility] GLUCOSE GESTATIONAL, 1 HOURo n 06-19-2025 Glucose 1 Hr post Unsp challenge [Mass/Vol] 191 mg/dL High 74-179 [facility] Comment on above: Order Comment: Fredy mancuso Type: BLOOD SPECIMENOrdering Facility: [facility] Address: [address] [place] [address] Result Comment: [facility] Congress of Obstetricians and Gynecologists (Connie/Norma) guidelines state gestational diabetes mellitus is present when 2 or more of the plasma glucose concentrations meet or exceed the following levels: fastin mg/dl, 1 hr: 180 mg/dl, 2 hr: 155 mg/dl, and 3 hr: 140 mg/dl. Performed By: #### G TGST1 ####[facility] [id number] [place] [address] [place] GLUCOSE GESTATIONAL, 2 HOURo n 06-19-2025 Glucose 2 Hr post Unsp challenge [Mass/Vol] 168 mg/dL High 74-154 [facility] Comment on above: Order Comment: Fredy mancuso Type: BLOOD SPECIMENOrdering Facility: [facility] Address: [address] [place] [address] Result Comment: [facility] Congress of Obstetricians and Gynecologists (Connie/Norma) guidelines state gestational diabetes mellitus is present when 2 or more of the plasma glucose concentrations meet or exceed the following levels: fastin mg/dl, 1 hr: 180 mg/dl, 2 hr: 155 mg/dl, and 3 hr: 140 mg/dl. Performed By: #### G TGST2 ####[facility] [id number] [address] [place] GLUCOSE GESTATIONAL, 3 HOURo n 06-19-2025 Glucose 3 Hr post Unsp challenge [Mass/Vol] 85 mg/dL Normal 74-139 [facility] Comment on above: Order Comment: Speci jamee Type: BLOOD SPECIMENOrdering Facility: [facility] Address: [address] [place] [address] Result Comment: [facility] Congress of Obstetricians and Gynecologists (Rosales/Paulan) guidelines state gestational diabetes mellitus is present when 2 or more of the plasma glucose concentrations meet or exceed the following levels: fastin mg/dl, 1 hr: 180 mg/dl, 2 hr: 155 mg/dl, and 3 hr: 140 mg/dl. Performed By: #### G TGST3 ####[facility] [id number] [address] STATES [facility] GLUCOSE GESTATIONAL, FASTING on 06-19-2025 Glucose post fast [Mass/Vol] 91 mg/dL Normal 74-94 [facility] Comment on above: Order Comment: Mikeli jamee Type: BLOOD SPECIMEN Ordering [facility]: [facility] Address: [address] [place] [address] Result Comment: [facility] Congress of Obstetricians and Gynecologists (Rosales/Rafastan) guidelines state gestational diabetes mellitus is present when 2 or more of the plasma glucose concentrations meet or exceed the following levels: fastin mg/dl, 1 hr: 180 mg/dl, 2 hr: 155 mg/dl, and 3 hr: 140 mg/dl. Performed By: #### 2 842-3 #### [facility] CLIA [id number] [address] [place] [address] [place] CBC W Auto Differential pane l (Bld)on 06-11-2025 Basophils (Bld) [#/Vol] 0.08 10*3/uL Normal <0.11 [facility] Comment on above: Order Comment: Speci men Type: BLOOD SPECIMENOrdering Facility: [facility] Address: [address] [place] [address] Performed By: #### 5 7021-8 ####[facility]ENTERLIA [id number] [place] [address] [place] Basophils/100 WBC (Bld) 0.6 % Normal [facility] Comment on above: Order Comment: Speci men Type: BLOOD SPECIMENOrdering Facility: [facility] Address: [address] [place] [address] Performed By: #### 5 7021-8 ####[facility] [id number] [place] [address] [place] Differential cell count method Nom (Bld) Auto Normal [facility] Comment on above: Order Comment: Speci men Type: BLOOD SPECIMENOrdering Facility: [facility] Address: [address] [place] [address] Performed By: #### 5 7021-8 ####[facility] [id number] [place] [address] [place] Eosinophils (Bld) [#/Vol] 0.24 10*3/uL Normal <0.46 [facility] Comment on above: Order Comment: Speci men Type: BLOOD SPECIMENOrdering Facility: [facility] Address: [address] [place] [address] Performed By: #### 5 7021-8 ####[facility] [id number] [place] [address] [place] Eosinophils/100 WBC (Bld) 1.7 % Normal [facility] Comment on above: Order Comment: Speci men Type: BLOOD SPECIMENOrdering Facility: [facility] Address: [address] [place] [address] Performed By: #### 5 7021-8 ####[facility] [id number] [place] [address] [place] Erythrocyte distribution width (RBC) [Ratio] 13.4 % Normal 11.5-15.0 [facility] Comment on above: Order Comment: Speci men Type: BLOOD SPECIMENOrdering Facility: [facility] Address: [address] [place] [address] Performed By: #### 5 7021-8 ####[facility] [id number] [place] [address] [place] Hematocrit (Bld) [Volume fraction] 31.7 % Low 36.0-46.0 [facility] Comment on above: Order Comment: Speci men Type: BLOOD SPECIMENOrdering Facility: [facility] Address: [address] [place] [address] Performed By: #### 5 7021-8 ####[facility] [id number] [place] [address] [place] Hemoglobin (Bld) [Mass/Vol] 10.4 g/dL Low 11.5-15.5 [facility] Comment on above: Order Comment: Speci men Type: BLOOD SPECIMENOrdering Facility: [facility] Address: [address] [place] [address] Performed By: #### 5 7021-8 ####[facility]ENTERLIA [id number] [place] [address] [place] Immature granulocytes (Bld) [#/Vol] 0.13 10*3/uL High <0.10 [facility] Comment on above: Order Comment: Speci men Type: BLOOD SPECIMENOrdering Facility: [facility] Address: [address] [place] [address] Performed By: #### 5 7021-8 ####[facility] [id number] [place] [address] [place] Immature granulocytes/100 WBC (Bld) 0.9 % Normal [facility] Comment on above: Order Comment: Speci men Type: BLOOD SPECIMENOrdering Facility: [facility] Address: [address] [place] [address] Performed By: #### 5 7021-8 ####[facility] [id number] [place] [address] [place] Lymphocytes (Bld) [#/Vol] 3.12 10*3/uL Normal 1.00-4.00 [facility] Comment on above: Order Comment: Speci men Type: BLOOD SPECIMENOrdering Facility: [facility] Address: [address] [place] [address] Performed By: #### 5 7021-8 ####[facility] [id number] [place] [address] [place] Lymphocytes/100 WBC (Bld) 21.7 % Normal [facility] Comment on above: Order Comment: Speci men Type: BLOOD SPECIMENOrdering Facility: [facility] Address: [address] [place] [address] Performed By: #### 5 7021-8 ####[facility] CENTERKIYAA [id number] [place] [address] [place] MCH (RBC) [Entitic mass] 29.9 pg Normal 26.0-34.0 [facility] Comment on above: Order Comment: Speci men Type: BLOOD SPECIMENOrdering Facility: [facility] Address: [address] [place] [address] Performed By: #### 5 7021-8 ####[facility] BEACHESNCLIA [id number] [place] [address] [place] MCHC (RBC) [Mass/Vol] 32.8 g/dL Normal 30.5-36.0 [facility] Comment on above: Order Comment: Speci men Type: BLOOD SPECIMENOrdering Facility: [facility] Address: [address] [place] [address] Performed By: #### 5 7021-8 ####[facility] [id number] [place] [address] [place] MCV (RBC) [Entitic vol] 91.1 fL Normal 80.0-100.0 [facility] Comment on above: Order Comment: Speci men Type: BLOOD SPECIMENOrdering Facility: [facility] Address: [address] [place] [address] Performed By: #### 5 7021-8 ####[facility] [id number] [place] [address] [place] Monocytes (Bld) [#/Vol] 0.86 10*3/uL Normal <0.87 [facility] Comment on above: Order Comment: Speci men Type: BLOOD SPECIMENOrdering Facility: [facility] Address: [address] [place] [address] Performed By: #### 5 7021-8 ####[facility] CENTERLI [id number] [place] [address] [place] Monocytes/100 WBC (Bld) 6.0 % Normal [facility] Comment on above: Order Comment: Speci men Type: BLOOD SPECIMENOrdering Facility: [facility] Address: [address] [place] [address] Performed By: #### 5 7021-8 ####[facility] [id number] [place] [address] [place] Neutrophils (Bld) [#/Vol] 9.97 10*3/uL High 1.45-7.50 [facility] Comment on above: Order Comment: Speci men Type: BLOOD SPECIMENOrdering Facility: [facility] Address: [facility] [place] [address] Performed By: #### 5 7021-8 ####[facility] JEWELLWPEPPERLIA [id number] [place] [address] [place] [facility] Neutrophils/100 WBC (Bld) 69.1 % Normal [facility] Comment on above: Order Comment: Speci men Type: BLOOD SPECIMENOrdering Facility: [facility] Address: [address] [place] [address] Performed By: #### 5 7021-8 ####[facility]ES[facility]PPERLIA [id number] [place] [address] [place] Nucleated RBC (Bld) [#/Vol] 10*3/uL Normal <0.01 [facility] Comment on above: Order Comment: Speci men Type: BLOOD SPECIMENOrdering Facility: [facility] Address: [address] [place] [address] Performed By: #### 5 7021-8 ####[facility]ACHESNCLIA [id number] [place] [address] [place] Nucleated RBC/100 WBC (Bld) [Ratio] 0.0 /100 WBC Normal [facility] Comment on above: Order Comment: Speci men Type: BLOOD SPECIMENOrdering Facility: [facility] Address: [address] [place] [address] Performed By: #### 5 7021-8 ####[facility]ACHESNCLIA [id number] [place] [address] [place] Platelet mean volume (Bld) [Entitic vol] 9.3 fL Normal 9.0-12.7 [facility] Comment on above: Order Comment: Speci men Type: BLOOD SPECIMENOrdering Facility: [facility] Address: [address] [place] [address] Performed By: #### 5 7021-8 ####[facility]ENTERLIA [id number] [place] [address] [place] Platelets (Bld) [#/Vol] 394 10*3/uL Normal 150-400 [facility] Comment on above: Order Comment: Speci men Type: BLOOD SPECIMENOrdering Facility: [facility] Address: [address] [place] [address] Performed By: #### 5 7021-8 ####[facility] [id number] [place] [address] [place] RBC (Bld) [#/Vol] 3.48 10*6/uL Low 3.90-5.20 [facility] Comment on above: Order Comment: Speci men Type: BLOOD SPECIMENOrdering Facility: [facility] Address: [address] [place] [address] Performed By: #### 5 7021-8 ####[facility] [id number] [place] [address] [place] WBC (Bld) [#/Vol] 14.40 10*3/uL High 3.70-11.00 [facility] Comment on above: Order Comment: Speci men Type: BLOOD SPECIMENOrdering Facility: [facility] Address: [address] [place] [address] Performed By: #### 5 7021-8 ####[facility] [id number] [place] [address] [place] Ferritin SerPl-mCncon 2024 Ferritin [Mass/Vol] 8.0 ng/mL Low 14.7-205.1 [facility] Comment on above: Order Comment: Speci men Type: BLOOD SPECIMENOrdering Facility: [facility] Address: [address] [place] [address] Performed By: #### 5 0190-8, 2276-4 ####[facility] [id number] [place] [id number] [place] GESTATIONAL GLUCOSE SCREEN, 1-HOUR, 50 GRAM, NON-FASTINGon 06-11-2025 Glucose [Mass/Vol] 181 mg/dL High 74-134 [facility] Comment on above: Order Comment: Speci men Type: BLOOD SPECIMEN Ordering [facility] Address: [address] [place] [address] Result Comment: [facility] Congress of Obstetricians and Gynecologists (Connie/Norma) guidelines state a gestational diabetes mellitus positive screen is made, in women not previously diagnosed with overt diabetes, when the 1 hr plasma glucose level is equal to or above 140 mg/dL. [facility] [employer] and [facility] [place] recommends a 135 mg/dL cutoff. Performed By: #### G LTGST #### [facility]IMMEE[facility] [id number] [address] [place] [address] [place] Iron and Iron binding capaci ty panelon 06-11-2025 Iron [Mass/Vol] 26 ug/dL Low 41-186 [facility] Comment on above: Order Comment: Speci men Type: BLOOD SPECIMENOrdering Facility: [facility] Address: [address] [place], [place] [address] Performed By: #### 5 0190-8, 6-4 ####[facility] [id number] [place] [id number] [place] Iron binding capacity [Mass/Vol] >526 High 232-386 [facility] Comment on above: Order Comment: Speci men Type: BLOOD SPECIMENOrdering Facility: [facility] Address: [address] [place] [address] Performed By: #### 5 0190-8, 6-4 ####[facility] [id number] [place] [id number] [place] Iron/TIBC [Molar ratio] <4.9 Low 15.0-57.0 [facility] Comment on above: Order Comment: Speci men Type: BLOOD SPECIMENOrdering Facility: [facility] Address: [address] [place] [address] Performed By: #### 5 0190-8, 2276-4 ####[facility] [id number] [address] Reagin and Treponema pallidu m IgG and IgM [Interp]on 06-11-2025 T. pallidum IgG+IgM IA Ql (S) Non-Reactive Normal Nonreactive [facility] Comment on above: Order Comment: Fredy jamee Type: BLOOD SPECIMENOrdering Facility: [facility] Address: [address] [place] [address] Performed By: #### 7 3752-8 ####[facility] [id number] [address] [place] Reagin+T pallidum IgG+IgM Se rPl-Impon 06-11-2025 Reagin and Treponema pallidum IgG and IgM [Interp] Cannot exclude recent Treponemal infection if specimen collected within 7-10 days after appearance of suspect lesions or 2-3 weeks after an exposure. Clinical correlation is required. Normal [facility] Comment on above: Order Comment: Fredy mancuso Type: BLOOD SPECIMENOrdering Facility: [facility] Address: [address] [place] [address] Performed By: #### 7 3752-8 ####[facility] [id number] [address] [place] CNOVon 06-04-2025 CNOV Office Visit (ALLEST ) ----- JENNIFER HENLEY ([id number]) 1995 F Date Time Provider Department 06/04/25 8:30 AM T[facility] WOOTEN During your visit today, we recorded the following information about you: Pulse Weight 107/minute 108.4 kg Taylor Wooten APRN.CNP 06/04/2025 12:25 PM Signed Allergy AND Clinical Immunology This is a request for consultation by Lorraine Roldan APRN.CN for an opinion regarding penicillin allergy. My final recommendations will be communicated back to the requesting physician by way of shared medical record or letter to the requesting physician via [place] mail. Chief Complaint: Penicillin allergy Historian: Patient HPI eJnnifer Henley is a 29 year old female who presents for evaluation of penicillin allergy. She is 27 weeks . Patient reports the drug in question is penicillin. The last exposure to this drug was in infancy. After that exposure, the following symptoms occurred: rash. Denies associated angioedema or respiratory symptoms. She is unable to recall if treatment was needed. This was the first time she had taken penicillin. She has avoided penicillin antibiotics since. No antihistamines in the last 5 days. History of full body pruritus after taking few doses of cephalexin last year. She continued taking and pruritus persisted until she stopped taking on the fifth day of seven day course. Denies associated angioedema, cutaneous or respiratory symptoms. Pruritus resolved with diphenhydramine. She has previously tolerated cephalexin the year prior but has been avoiding since. ALLERGIES Allergen Reactions Penicillins Hives Adhesive Hives Sutures Hives Cephalexin Itching PAST MEDICAL HISTORY Diagnosis Date IBS (irritable bowel syndrome) Migraine headache with aura POTS (postural orthostatic tachycardia syndrome) PAST SURGICAL HISTORY Procedure Laterality Date KNEE LEFT OP SURGERY Left REMOVAL GALLBLADDER FAMILY HISTORY Problem Relation Age of Onset other (scleroderma) Mother other (congestive heart) Father Alzheimer's Disease Maternal Grandmother SOCIAL HISTORY[1] Current Outpatient Medications on File Prior to Visit Medication Sig famotidine (PEPCID) 20 mg tablet Take 1 tablet by mouth two times a day. labetalol (TRANDATE) 100 mg tablet Take 100 mg by mouth at bedtime as needed. aspirin, enteric coated (ECOTRIN LOW STRENGTH) 81 mg EC tablet Take 1 tablet by mouth once daily. vits18/iron/folic/dss (PRENACARE ORAL) Take 1 tablet by mouth once daily. No current facility-administered medications on file prior to visit. Review of Systems Constitutional: Negative for chills, fatigue and fever. HENT: Negative for congestion and rhinorrhea. Respiratory: Negative for cough, chest tightness, shortness of breath and wheezing. Cardiovascular: Negative for chest pain, palpitations and leg swelling. Skin: Negative for rash. Last menstrual period 11/27/2024. There is no height or weight on file to calculate BMI. Physical Exam Constitutional: General: She is not in acute distress. Cardiovascular: Rate and Rhythm: Normal rate and regular rhythm. Heart sounds: Normal heart sounds. Pulmonary: Effort: Pulmonary effort is normal. No respiratory distress. Breath sounds: Normal breath sounds. Neurological: Mental Status: She is alert and oriented to person, place, and time. Penicillin Skin Testing: I personally reviewed the patients testing and interpreted results as follows: Negative to penicillin G, PrePen and ampicillin. ALLERGEN: Penicillin G (Percutaneous): 0 mm, 0 mm PrePen (Percutaneous): 0 mm, 0 mm Ampicillin (Percutaneous): 0 mm, 0 mm CONTROL: 0 mm, 0 mm HISTAMINE: 4 mm, 10 mm Penicillin G (Intradermal): 0 mm, 0 mm PrePen (Intradermal): 0 mm, 0 mm Ampicillin (Intradermal): 0 mm, 0 mm CONTROL: 7 mm, 12 mm Assessment/Plan: 1. Adverse effect of penicillin, initial encounter - ICD9: E930.0, ICD10: T36.0X5A History of rash in infancy. Skin testing negative suggesting that she does not have an IgE-mediated penicillin allergy. Need to complete oral challenge for definitive evaluation. - Return after 28 weeks for graded oral challenge to Amoxicillin - In the meantime, continue to avoid penicillin antibiotics - Advised no antihistamines 5 days prior to challenge visit 2. Adverse effect of cephalosporin, initial encounter - ICD9: E930.5, ICD10: T36.1X5A History of generalized pruritus after taking cephalexin last year. Low suspicion for IgE-mediated allergy. Discussed returning for oral challenge when no longer . In the meantime, continue to avoid cephalexin, taking equally efficacious alternatives as indicted. 3. 27 weeks gestation of - ICD9: V22.2, ICD10: Z3A.27 Discussed benefit of penicillin allergy evaluation in the context of Jose (more content not included)... Normal [facility] No Panel Informationon 06-04 ANTIBIOTIC PERCUTANE OUS AND INTRADERMAL SKIN TESTING Mean Wheal & Flare Diameter (mm) Patient has been identified by name and date of : Yes . Skin test applied by : Evelyn Travis RN Interpreted By: Taylor Wooten CNP * Clinical significant reactions are regarded as a wheal diameter greater than or equal to 3 mm with a flare diameter greater or equal to 6mm. ALLERGENS CONTROL Normal Saline P: W = 0 mm F = 0 mm ID:W = 0 mm F = 0 mm PENICILLIN GK 10,000 UNITS/ML P: W = 0 mm F = 0 mm ID: W = 0 mm F = 0 mm [facility] [id number] Lot [id number] Exp 05/2027 PREPEN -(benzylpenicilloyl polylysine) full strength P: W = 0 mm F = 0mm ID: W = 0 mm F = 0 mm [facility] [id number] Lot [id number] 03/2026 AMPICILLIN SODIUM 12.5mg/ml P: W = 0 mm F = 0mm ID: W = 0 mm F = 0 mm [facility] [id number] Lot [id number] Exp 11/2026 HISTAMINE- positive control (Histamine base 6mg/ml)for Prick and 0.1 mg/ml for intradermal P: W = 4 mm F = 10 mm ID:W = 7 mm F = 12 mm [facility] No Panel InformationOrdered By: Evelyn Travis on 06-04-2025 [facility] Examination level ultrasound on 04-16-2025 Indication Detailed anatomic survey Maternal obesity, BMI >35 Impression The patient is referred for a detailed anatomic survey. - Single, live, intrauterine . - biometry is consistent with the established gestational age. - No malformations were visualized on a complete detailed anatomic survey. - The amniotic fluid volume is normal amount. - The placenta is anterior, low lying, 4 mm from the os. - The Transvaginal cervical length measures 45.2 mm with no evidence of funneling or other dynamic changes. - Not all structural malformations can be detected by ultrasound examination. Recommendations - A follow-up TVS exam at 28 weeks is recommended to rule out persistent low-lying placenta or vasa previa. - growth every 4 weeks starting at 28 weeks. - Additional follow up as clinically indicated. Maternal Assessment Height 163 cm Height (ft) 5 ft Height (in) 4 in Physical Exam Initial weight (lb) 220 lb Initial BMI 37.76 kg/m Maternal assessment other: 1 Para 0 REMOTE READ Method Transabdominal and transvaginal ultrasound examination. View: Adequate visualization Joseph . Number of fetuses: 1 Dating LMP on: 11/27/2024 GA by LMP 20 w + 0 d LILIANE by LMP: 09/03/2025 GA by prior assessment 20 w + 0 d LILIANE by prior assessment: 09/03/2025 Ultrasound examination on: 04/16/2025 GA by U/S based upon: AC, BPD, Femur, HC GA by U/S 19 w + 5 d LILIANE by U/S: 09/05/2025 Assigned: based on stated LILIANE, selected on 04/16/2025 Assigned GA 20 w + 0 d Assigned LILIANE: 09/03/2025 General Evaluation Cardiac activity present. FHR 124 bpm. movements: present. Presentation: cephalic Placenta: Placental site: anterior, low lying. Placental yxgx-cf-utepgola os distance 4 mm Umbilical cord: Cord vessels: 3 vessel cord Amniotic fluid: Amount of AF: normal amount. MVP 5.5 cm Growth Overview Exam date GA BPD (mm) HC (mm) AC (mm) FL (mm) HL (mm) EFW (g) 04/16/2025 20w 0d 46.4 51% 167.8 32% 147.9 46% 30.1 38% 28 21% 305 28% Biometry Standard BPD 46.4 mm 20w 0d 51% Hadlock OFD 58.3 mm 19w 1d 25% Nicolaides HC 167.8 mm 19w 3d 32% Park Cerebellum tr 19.6 mm 19w 0d 39% Hill Nuchal fold 4.2 mm AC 147.9 mm 20w 0d 46% Hadlock Femur 30.1 mm 19w 3d 38% Park Humerus 28.0 mm 19w 0d 21% Park EFW 305 g 19w 4d 28% Hadlock EFW (lb) 0 lb EFW (oz) 11 oz EFW by: Hadlock (HC-AC-FL) Extended Grades 1 Through 6 Teacher 7.3 mm CM 5.8 mm 75% Nicolaides Extremities / Bony Struc FL / HC 0.18 26% Hadlock Other Structures FHR 124 bpm Anatomy Cranium: normal Lateral ventricles: normal Choroid plexus: normal Midline falx: normal Cavum septi pellucidi: normal Cerebellum: normal Cisterna magna: normal Head / Neck Vermis: normal Neck: normal Nuchal fold: normal Lips: normal Profile: normal Nose: normal Face Maxilla: normal Mandible: normal Orbits: normal Lens: normal 4-chamber view: normal RVOT view: normal LVOT view: normal 3-vessel view: normal 5-ufuvtn-tkykawi view: normal Heart / Thorax Situs: situs solitus (normal) Aortic arch view: normal SVC: normal IVC: normal Cardiac axis: normal Rt lung: normal Lt lung: normal Diaphragm: normal Cord insertion: normal Stomach: normal Kidneys: normal Bladder: normal Genitals: normal Abdomen Abdom. wall: normal Cervical spine: normal Thoracic spine: normal Lumbar spine: normal Sacral spine: normal Arms: normal Legs: normal Rt upper arm: normal Rt forearm: normal Rt hand: normal Rt fingers: normal Lt upper arm: normal Lt forearm: normal Lt hand: normal Lt fingers: normal Rt upper leg: normal Rt lower leg: normal Rt foot: normal Lt upper leg: normal Lt lower leg: normal Lt foot: normal sex: male Wants to know sex: yes Maternal Structures Uterus / Cervix Uterus: Visualized Cervix: Visualized Approach: Transvaginal Cervical length 45.2 mm Ovaries / Tubes / Adnexa Rt ovary: Visualized Lt ovary: Visualized Performed By: Eulalia Munoz RDMS, RVT Read By: Vickie Echols M.D. MATERNAL MEDICINE [facility] Radiology Study observation (narrative) [facility] Bacteria identifiedon 2024 Bacteria identified Cx Nom (U) Test: Urine Culture Specimen Source: Clean Catch/Voided Specimen Type: Urine Specimen Date: 03/23/2025 1010 Result Date: 03/25/2025 0851 Result Status: Final result Abnormal: No Resulting Lab: [facility] [address] [place] [address] CULTURE No growth Normal [facility] Comment on above: Performed By: #### 6 30-4 #### JOHN Longo ([id number]) [facility] ([facility]) [address] [id number] CBC W Auto Differential pane l (Bld)on 03-23-2025 Basophils (Bld) [#/Vol] 0.05 10*3/uL [facility] Basophils/100 WBC (Bld) 0.4 % 0.0 - 2.0 % [facility] Eosinophils (Bld) [#/Vol] 0.13 10*3/uL [facility] Eosinophils/100 WBC (Bld) 1.2 % 0.0 - 6.0 % [facility] Erythrocyte distribution width (RBC) [Ratio] 13.4 % 11.5 - 14.5 % [facility] Hematocrit (Bld) [Volume fraction] 34.8 % Low 36.0 - 46.0 % [facility] Hemoglobin (Bld) [Mass/Vol] 11.4 g/dL Low 12.0 - 16.0 g/dL [facility] Immature granulocytes (Bld) [#/Vol] 0.05 10*3/uL [facility] Immature granulocytes/100 WBC (Bld) 0.4 % 0.0 - 0.9 % [facility] Comment on above: Immature Granulocyte Count (IG) includes promyelocytes, myelocytes and metamyelocytes but does not include bands. Percent differential counts (%) should be interpreted in the context of the absolute cell counts (cells/UL). Interpretation and review of laboratory results Abnormal [facility] Lymphocytes (Bld) [#/Vol] 2.6 10*3/uL [facility] Lymphocytes/100 WBC (Bld) 23 % 13.0 - 44.0 % [facility] MCH (RBC) [Entitic mass] 29.8 pg 26.0 - 34.0 pg [facility] MCHC (RBC) [Mass/Vol] 32.8 g/dL 32.0 - 36.0 g/dL [facility] MCV (RBC) [Entitic vol] 91 fL 80 - 100 fL [facility] Monocytes (Bld) [#/Vol] 0.75 10*3/uL [facility] Monocytes/100 WBC (Bld) 6.6 % 2.0 - 10.0 % [facility] Neutrophils (Bld) [#/Vol] 7.7 10*3/uL [facility] Comment on above: Percent differential counts (%) should be interpreted in the context of the absolute cell counts (cells/uL). Neutrophils/100 WBC (Bld) 68.4 % 40.0 - 80.0 % [facility] Nucleated RBC/100 WBC (Bld) [Ratio] 0 % [facility] Platelets (Bld) [#/Vol] 350 10*3/uL [facility] RBC (Bld) [#/Vol] 3.82 10*6/uL Low Unive [facility] WBC (Bld) [#/Vol] 11.3 10*3/uL [facility] Basophils (Bld) [#/Vol] 0.05 x10*3/uL Normal 0.00-0.10 [facility] Comment on above: Performed By: #### 5 7021-8 #### FRANKY SIBLEY ([id number]) [facility] ([facility]) [address] [place] [address] 04559 Basophils/100 WBC (Bld) 0.4 % Normal 0.0-2.0 [facility] Comment on above: Performed By: #### 5 7021-8 #### FRANKY SIBLEY ([id number]) [facility] ([facility]) [address] [place] [address] 02590 Eosinophils (Bld) [#/Vol] 0.13 x10*3/uL Normal 0.00-0.70 [facility] Comment on above: Performed By: #### 5 7021-8 #### FRANKY SIBLEY ([id number]) [facility] ([facility]) [address] [place] [address] 74340 Eosinophils/100 WBC (Bld) 1.2 % Normal 0.0-6.0 [facility] Comment on above: Performed By: #### 5 7021-8 #### FRANKY SIBLEY ([id number]) [facility] ([facility]) [address] [place] [address] 26861 Erythrocyte distribution width (RBC) [Ratio] 13.4 % Normal 11.5-14.5 [facility] Comment on above: Performed By: #### 5 7021-8 #### FRANKY SIBLEY ([id number]) [facility] ([facility]) [address] [place] [address] 55430 Hematocrit (Bld) [Volume fraction] 34.8 % Low 36.0-46.0 [facility] Comment on above: Performed By: #### 5 7021-8 #### FRANKY SIBLEY ([id number]) [facility] ([facility]) [address] [place] [address] 46517 Hemoglobin (Bld) [Mass/Vol] 11.4 g/dL Low 12.0-16.0 [facility] Comment on above: Performed By: #### 5 7021-8 #### FRANKY SIBLEY ([id number]) [facility] ([facility]) [address] [place] [address] 51821 Immature granulocytes (Bld) [#/Vol] 0.05 x10*3/uL Normal 0.00-0.70 [facility] Comment on above: Performed By: #### 5 7021-8 #### FRANKY SIBLEY ([id number]) [facility] ([facility]) [address] [place] [address] 39052 Immature granulocytes/100 WBC (Bld) 0.4 % Normal 0.0-0.9 [facility] Comment on above: Result Comment: Sylwia ture Granulocyte Count (IG) includes promyelocytes, myelocytes and metamyelocytes but does not include bands. Percent differential counts (%) should be interpreted in the context of the absolute cell counts (cells/UL). Performed By: #### 5 7021-8 #### FRANKY SIBLEY ([id number]) [facility] ([facility]) [address] [place] [address] 29930 Lymphocytes (Bld) [#/Vol] 2.60 x10*3/uL Normal 1.20-4.80 [facility] Comment on above: Performed By: #### 5 7021-8 #### FRANKY SIBLEY ([id number]) [facility] ([facility]) [address] [place] [address] 85833 Lymphocytes/100 WBC (Bld) 23.0 % Normal 13.0-44.0 [facility] Comment on above: Performed By: #### 5 7021-8 #### FRANKY SIBLEY ([id number]) [facility] ([facility]) [address] [place] [address] 70711 MCH (RBC) [Entitic mass] 29.8 pg Normal 26.0-34.0 [facility] Comment on above: Performed By: #### 5 7021-8 #### FRANKY SIBLEY ([id number]) [facility] ([facility]) [address] [place] [address] 40481 MCHC (RBC) [Mass/Vol] 32.8 g/dL Normal 32.0-36.0 [facility] Comment on above: Performed By: #### 5 7021-8 #### FRANKY SIBLEY ([id number]) [facility] ([facility]) [address] [place] [address] 90940 MCV (RBC) [Entitic vol] 91 fL Normal 80-100 [facility] Comment on above: Performed By: #### 5 7021-8 #### FRANKY SIBLEY ([id number]) [facility] ([facility]) [address] [place] [address] 75347 Monocytes (Bld) [#/Vol] 0.75 x10*3/uL Normal 0.10-1.00 [facility] Comment on above: Performed By: #### 5 7021-8 #### FRANKY SIBLEY ([id number]) [facility] ([facility]) [address] [place] [address] 54709 Monocytes/100 WBC (Bld) 6.6 % Normal 2.0-10.0 [facility] Comment on above: Performed By: #### 5 7021-8 #### FRANKY SIBLEY ([id number]) [facility] ([facility]) [address] [place] [address] 42487 Neutrophils (Bld) [#/Vol] 7.70 x10*3/uL Normal 1.20-7.70 [facility] Comment on above: Result Comment: Perc ent differential counts (%) should be interpreted in the context of the absolute cell counts (cells/uL). Performed By: #### 5 7021-8 #### FRANKY SIBLEY ([id number]) [facility] ([facility]) [address] [place] [address] 13264 Neutrophils/100 WBC (Bld) 68.4 % Normal 40.0-80.0 [facility] Comment on above: Performed By: #### 5 7021-8 #### FRANKY SIBLEY ([id number]) [facility] ([facility]) [address] [place] [address] 38350 Nucleated RBC/100 WBC (Bld) [Ratio] 0.0 /100 WBCs Normal 0.0-0.0 [facility] Comment on above: Performed By: #### 5 7021-8 #### FRANKY SIBLEY ([id number]) [facility] ([facility]) [address] [place] [address] 83495 Platelets (Bld) [#/Vol] 350 x10*3/uL Normal 150-450 [facility] Comment on above: Performed By: #### 5 7021-8 #### FRANKY SIBLEY ([id number]) [facility] ([facility]) [address] [place] [address] 27844 RBC (Bld) [#/Vol] 3.82 x10*6/uL Low 4.00-5.20 [facility] Comment on above: Performed By: #### 5 7021-8 #### FRANKY SIBLEY ([id number]) [facility] ([facility]) [address] [place] [address] 64107 WBC (Bld) [#/Vol] 11.3 x10*3/uL Normal 4.4-11.3 [facility] Comment on above: Performed By: #### 5 7021-8 #### FRANKY SIBLEY ([id number]) [facility] ([facility]) [address] [place] [address] 98738 Comprehensive metabolic 2000 panelon 03-23-2025 Albumin BCP dye [Mass/Vol] 3.8 g/dL 3.4 - 5.0 g/dL [facility] ALP [Catalytic activity/Vol] 44 U/L 33 - 110 U/L [facility] ALT With P-5'-P [Catalytic activity/Vol] 12 U/L 7 - 45 U/L [facility] Comment on above: Patients treated wit h Sulfasalazine may generate falsely decreased results for ALT. Anion gap [Moles/Vol] 11 mmol/L 10 - 20 mmol/L [facility] AST With P-5'-P [Catalytic activity/Vol] 13 U/L 9 - 39 U/L [facility] Bilirubin [Mass/Vol] 0.3 mg/dL 0.0 - 1 .2 mg/dL [facility] Calcium [Mass/Vol] 8.9 mg/dL 8.6 - 10. 3 mg/dL [facility] Chloride [Moles/Vol] 105 mmol/L 98 - 10 7 mmol/L [facility] CO2 [Moles/Vol] 23 mmol/L 21 - 32 mmol/L [facility] Creatinine [Mass/Vol] 0.63 mg/dL 0.50 - 1.05 mg/dL [facility] eGFR - PINF [facility] Comment on above: Calculations of evelyn mated GFR are performed using the 2020 CKD-EPI Study Refit equation without the race variable for the IDMS-Traceable creatinine methods. https://jasn.asnjournals.org/content//ASN.0562093 988 Glucose [Mass/Vol] 134 mg/dL High 74 - 99 mg/dL [facility] Interpretation and review of laboratory results Abnormal [facility] Potassium [Moles/Vol] 3.7 mmol/L 3.5 - 5.3 mmol/L [facility] Protein [Mass/Vol] 6.8 g/dL 6.4 - 8.2 g/dL [facility] Sodium [Moles/Vol] 135 mmol/L Low 136 - 145 mmol/L [facility] Urea nitrogen [Mass/Vol] 11 mg/dL 6 - 23 mg/dL [facility] Albumin BCP dye [Mass/Vol] 3.8 g/dL Normal 3.4-5.0 [facility] Comment on above: Performed By: #### 2 4323-8 #### FRANKY SIBLEY ([id number]) [facility] ([facility]) [address] [place] [address] 64129 ALP [Catalytic activity/Vol] 44 U/L Normal 33-110 [facility] Comment on above: Performed By: #### 2 4323-8 #### FRANKY SIBLEY ([id number]) [facility] ([facility]) [address] [place] [address] 07538 ALT With P-5'-P [Catalytic activity/Vol] 12 U/L Normal 7-45 [facility] Comment on above: Result Comment: Tori ents treated with Sulfasalazine may generate falsely decreased results for ALT. Performed By: #### 2 432-8 #### FRANKY SIBLEY ([id number]) [facility] ([facility]) [address] [place] [address] 48424 Anion gap [Moles/Vol] 11 mmol/L Normal 10-20 [facility] Comment on above: Performed By: #### 2 432-8 #### FRANKY SIBLEY ([id number]) [facility] ([facility]) [address] [place] [address] 53064 AST With P-5'-P [Catalytic activity/Vol] 13 U/L Normal 9-39 [facility] Comment on above: Performed By: #### 2 432-8 #### FRANKY SIBLEY ([id number]) [facility] ([facility]) [address] [place] [address] 65001 Bilirubin [Mass/Vol] 0.3 mg/dL Normal 0.0-1.2 [facility] Comment on above: Performed By: #### 2 4323-8 #### FRANKY SIBLEY ([id number]) [facility] ([facility]) [address] [place] [address] 50041 Calcium [Mass/Vol] 8.9 mg/dL Normal 8.6-10.3 [facility] Comment on above: Performed By: #### 2 3-8 #### FRANKY SIBLEY ([id number]) [facility] ([facility]) [address] [place] [address] Chloride [Moles/Vol] 105 mmol/L Normal 98-107 [facility] Comment on above: Performed By: #### 2 4323-8 #### FRAKNY SIBLEY ([id number]) [facility] ([facility]) [address] [place] [address] CO2 [Moles/Vol] 23 mmol/L Normal 21-32 [facility] Comment on above: Performed By: #### 2 4323-8 #### FRANKY SIBLEY ([id number]) [facility] ([facility]) [address] [place] [address] 81233 Creatinine [Mass/Vol] 0.63 mg/dL Normal 0.50-1.05 [facility] Comment on above: Performed By: #### 2 4323-8 #### FRANKY SIBLEY ([id number]) [facility] ([facility]) [address] [place] [address] 24168 GFR/1.73 sq M.predicted MDRD (S/P/Bld) [Vol rate/Area] mL/min/{1.73_m2} Normal >60 [facility] Comment on above: Result Comment: Calc ulations of estimated GFR are performed using the 2020 CKD-EPI Study Refit equation without the race variable for the IDMS-Traceable creatinine methods. https://jasn.asnjournals.org/content//ASN.9561394 988 Performed By: #### 2 4323-8 #### FRANKY SIBLEY ([id number]) [facility] ([facility]) [address] [place] [address] Glucose [Mass/Vol] 134 mg/dL High 74-99 [facility] Comment on above: Performed By: #### 2 4323-8 #### FRANKY SIBLEY ([id number]) [facility] ([facility]) [facility] [place] [address] Potassium [Moles/Vol] 3.7 mmol/L Normal 3.5-5.3 [facility] Comment on above: Performed By: #### 2 4323-8 #### FRANKY SIBLEY ([id number]) [facility] ([facility]) [address] [place] [address] 88074 Protein [Mass/Vol] 6.8 g/dL Normal 6.4-8.2 [facility] Comment on above: Performed By: #### 2 4323-8 #### FRANKY SIBLEY ([id number]) [facility] ([facility]) [address] [place] [address] 93660 Sodium [Moles/Vol] 135 mmol/L Low 136-145 [facility] Comment on above: Performed By: #### 2 4323-8 #### FRANKY SIBLEY ([id number]) [facility] ([facility]) [address] [place] [address] 95393 Urea nitrogen [Mass/Vol] 11 mg/dL Normal 6-23 [facility] Comment on above: Performed By: #### 2 4323-8 #### FRANKY SIBLEY ([id number]) [facility] ([facility]) [address] [place] [address] 45394 Magnesiumon 03-23-2025 Magnesium [Mass/Vol] 1.88 mg/dL 1.60 - 2.40 mg/dL [facility] Magnesium [Mass/Vol] 1.88 mg/dL Normal 1.60-2.40 [facility] Comment on above: Performed By: #### 1 9123-9 #### FRANKY SIBLEY ([id number]) [facility] ([facility]) [address] [place] [address] 35434 Magnesium [Mass/Vol]on 03-23 Interpretation and review of laboratory results Normal [facility] No Panel Informationon 03-23 [facility] Interpretation and review of laboratory results Abnormal [facility] Urinalysis complete W Reflex Culture panel (U)on 03-23-2025 Appearance (U) Turbid Abnormal Clear [facility] Bilirubin (U) [Mass/Vol] Negative NEGATIVE mg/dL [facility] Color (U) Yellow Light-Yellow , Yellow, Dark-Yellow [facility] Glucose Auto test strip (U) [Mass/Vol] 30 (TRACE) Abnormal Normal mg/dL [facility] Ketones (U) [Mass/Vol] Negative NEGATIVE mg/dL [facility] Leukocyte esterase Auto test strip Ql (U) 500 Alex/uL Abnormal NEGATIVE [facility] Nitrite Auto test strip Ql (U) Negative NEGATIVE [facility] pH (U) 6 [pH] 5.0, 5.5, 6.0, 6.5, 7.0, 7.5, 8.0 [facility] Protein (U) [Mass/Vol] 50 (1+) Abnormal NEGATIVE, 10 (TRACE), 20 (TRACE) mg/dL [facility] RBC (U) [#/Vol] Negative NEGATIVE mg/dL [facility] Specific gravity (U) [Rel density] 1.035 1.005 - 1.035 [facility] Urobilinogen (U) [Mass/Vol] Normal Normal mg/dL [facility] Appearance (U) Turbid Normal Clear [facility] Comment on above: Performed By: #### 5 8077-9 #### FRANKY SIBLEY ([id number]) [facility] ([facility]) [address] [place] [address] Bilirubin (U) [Mass/Vol] Negative Normal NEGATIVE [facility] Comment on above: Performed By: #### 5 8077-9 #### FRANKY SIBLEY ([id number]) [facility] ([facility]) [address] [place] [address] Color (U) Yellow Normal Light-Yellow , Yellow, Dark-Yellow [facility] Comment on above: Performed By: #### 5 8077-9 #### FRANKY SIBLEY ([id number]) [facility] ([facility]) [address] [place] [address] Glucose Auto test strip (U) [Mass/Vol] 30 (TRACE) Abnormal Normal [facility] Comment on above: Performed By: #### 5 8077-9 #### FRANKY SIBLEY ([id number]) [facility] ([facility]) [address] [place] [address] Ketones (U) [Mass/Vol] Negative Normal NEGATIVE [facility] Comment on above: Performed By: #### 5 8077-9 #### FRANKY SIBLEY ([id number]) [facility] ([facility]) [address] [place] [address] 11792 Leukocyte esterase Auto test strip Ql (U) 500 Alex/uL Abnormal NEGATIVE [facility] Comment on above: Performed By: #### 5 8077-9 #### FRANKY SIBLEY ([id number]) [facility] ([facility]) [address] [place] [address] 53358 Nitrite Auto test strip Ql (U) Negative Normal NEGATIVE [facility] Comment on above: Performed By: #### 5 8077-9 #### FRANKY SIBLEY ([id number]) [facility] ([facility]) [address] [place] [address] 83527 pH (U) 6.0 [pH] Normal 5.0, 5.5, 6.0, 6.5, 7.0, 7.5, 8.0 [facility] Comment on above: Performed By: #### 5 8077-9 #### FRANKY SIBLEY ([id number]) [facility] ([facility]) [address] [place] [address] 06188 Protein (U) [Mass/Vol] 50 (1+) Abnormal NEGATIVE, 10 (TRACE), 20 (TRACE) [facility] Comment on above: Performed By: #### 5 8077-9 #### FRANKY SIBLEY ([id number]) [facility] ([facility]) [address] [place] [address] 02823 RBC (U) [#/Vol] Negative Normal NEGATIVE [facility] Comment on above: Performed By: #### 5 8077-9 #### FRANKY SIBLEY ([id number]) [facility] ([facility]) [address] [place] [address] 24396 Specific gravity (U) [Rel density] 1.035 Normal 1.005-1.035 [facility] Comment on above: Performed By: #### 5 8077-9 #### FRANKY SIBLEY ([id number]) [facility] ([facility]) [address] [place] [address] Urobilinogen (U) [Mass/Vol] Normal Normal Normal [facility] Comment on above: Performed By: #### 5 8077-9 #### FRANKY SIBLEY ([id number]) [facility] ([facility]) [address] [place] [address] Urinalysis microscopic panel Auto Ql (U)on 03-23-2025 Bacteria Auto (Urine sed) [#/Area] 3+ Abnormal NONE SEEN /HPF [facility] Epithelial cells.squamous Auto (Urine sed) [#/Area] 1-9 (SPARSE) Reference range not established. /HPF [facility] Mucus Auto (Urine sed) [#/Area] 4+ Reference range not established. /LPF [facility] RBC Auto (Urine sed) [#/Area] 3-5 NONE, 1-2, 3-5 /HPF [facility] WBC Auto (Urine sed) [#/Area] 21-50 Abnormal 1-5, NONE /HPF [facility] Bacteria Auto (Urine sed) [#/Area] 3+ /HPF Abnormal NONE SEEN [facility] Comment on above: Performed By: #### 5 3315-8 #### FRANKY SIBLEY ([id number]) [facility] ([facility]) [address] [place] [address] Epithelial cells.squamous Auto (Urine sed) [#/Area] 1-9 (SPARSE) Normal Reference range not established. [facility] Comment on above: Performed By: #### 5 3315-8 #### FRANKY SIBLEY ([id number]) [facility] ([facility]) [address] [place] [address] Mucus Auto (Urine sed) [#/Area] 4+ /LPF Normal Reference range not established. [facility] Comment on above: Performed By: #### 5 3315-8 #### FRANKY SIBLEY ([id number]) [facility] ([facility]) [address] [place] [address] RBC Auto (Urine sed) [#/Area] 3-5 Normal NONE, 1-2, 3-5 [facility] Comment on above: Performed By: #### 5 3315-8 #### FRANKY SIBLEY ([id number]) [facility] ([facility]) [address] [place], [place] [id number] WBC Auto (Urine sed) [#/Area] 21-50 Abnormal 1-5, NONE [facility] Comment on above: Performed By: #### 5 3315-8 #### FRANKY SIBLEY ([id number]) [facility] ([facility]) [address] [place] [address] Comprehensive metabolic 2000 panelOrdered By: Shima Robb on 03-19-2025 Albumin [Mass/Vol] 3.8 g/dL Low 3.9 - 4.9 g/dL [facility] ALP [Catalytic activity/Vol] 51 U/L 34 - 123 U/L [facility] ALT [Catalytic activity/Vol] 9 U/L 7 - 38 U/L [facility] Anion gap [Moles/Vol] 11 mmol/L 8 - 15 mmol/L [facility] AST [Catalytic activity/Vol] 12 U/L Low 13 - 35 U/L [facility] Bilirubin [Mass/Vol] 0.2 mg/dL 0.2 - 1 .3 mg/dL [facility] Calcium [Mass/Vol] 9.1 mg/dL 8.5 - 10. 2 mg/dL [facility] Chloride [Moles/Vol] 105 mmol/L 98 - 10 7 mmol/L [facility] CO2 [Moles/Vol] 22 mmol/L 22 - 30 mmol/L [facility] Creatinine [Mass/Vol] 0.6 mg/dL 0.58 - 0.96 mg/dL [facility] GFR/1.73 sq M.predicted among non-blacks MDRD (S/P/Bld) [Vol rate/Area] 125 mL/min/{1.73_m2} - PINF [facility] Comment on above: Estimated Glomerular Filtration Rate (eGFR) is calculated using the 2020 CKD-EPI creatinine equation. This equation utilizes serum creatinine, sex, and age as parameters. The creatinine assay has traceable calibration to isotope dilution-mass spectrometry. Refer to KDIGO guidelines for clinical interpretation. In patients with unstable renal function, e.g. those with acute kidney injury, the eGFR may not accurately reflect actual GFR. Glucose [Mass/Vol] 87 mg/dL 74 - 99 mg/dL [facility] Comment on above: The [place] Diabete s Association (ADA) provides guidance for cutoff values for fasting glucose and random glucose. The ADA defines fasting as no caloric intake for at least 8 hours. Fasting plasma glucose results between 100 to 125 mg/dL indicate increased risk for diabetes (prediabetes). Fasting plasma glucose results greater than or equal to 126 mg/dL meet the criteria for diagnosis of diabetes. In the absence of unequivocal hyperglycemia, results should be confirmed by repeat testing. In a patient with classic symptoms of hyperglycemia or hyperglycemic crisis, random plasma glucose results greater than or equal to 200 mg/dL meet the criteria for diagnosis of diabetes. Reference: Standards of Medical Care in Diabetes 2016, [place] Diabetes Association. Diabetes Care. 2016.39(Suppl 1). Interpretation and review of laboratory results Abnormal [facility] Potassium [Moles/Vol] 3.9 mmol/L 3.7 - 5.1 mmol/L [facility] Protein [Mass/Vol] 6.5 g/dL 6.3 - 8.0 g/dL [facility] Sodium [Moles/Vol] 138 mmol/L 136 - 144 mmol/L [facility] Urea nitrogen [Mass/Vol] 11 mg/dL 7 - 21 mg/dL [facility] Comprehensive metabolic 2000 panelon 03-19-2025 Albumin [Mass/Vol] 3.8 g/dL Low 3.9-4.9 [facility] Comment on above: Order Comment: Fredy mancuso Type: BLOOD SPECIMEN Ordering Facility: [facility] Address: [address] [place] [address] Performed By: #### 2 842-3 #### [facility] CLIA [id number] [address] [place], [place] [address]K [id number] [place] [address] [place] ALP [Catalytic activity/Vol] 51 U/L Normal 34-123 [facility] Comment on above: Order Comment: Speci men Type: BLOOD SPECIMEN Ordering Facility: [facility] Address: [address] [place] [address] Performed By: #### 2 842-3 #### [facility] CLIA [id number] [address] [place] [id number] [place] ALT [Catalytic activity/Vol] 9 U/L Normal 7-38 [facility] Comment on above: Order Comment: Speci men Type: BLOOD SPECIMEN Ordering Facility: [facility] Address: [address] [place] [id number] Performed By: #### 2 842-3 #### [facility] CLIA [id number] [address] [place], [place] [address] [place] Anion gap [Moles/Vol] 11 mmol/L Normal 8-15 [facility] Comment on above: Order Comment: Speci men Type: BLOOD SPECIMEN Ordering Facility: [facility] Address: [address] [place] [address] Performed By: #### 2 842-3 #### [facility] CLIA [id number] [address] [place] [address] [place] AST [Catalytic activity/Vol] 12 U/L Low 13-35 [facility] Comment on above: Order Comment: Speci men Type: BLOOD SPECIMEN Ordering Facility: [facility] Address: [address] [place] [address] Performed By: #### 2 842-3 #### [facility] CLIA [id number] [address] [place], [place] [address] [place] Bilirubin [Mass/Vol] 0.2 mg/dL Normal 0.2-1.3 [facility] Comment on above: Order Comment: Speci men Type: BLOOD SPECIMEN Ordering Facility: [facility] Address: [address] [place] [place] [id number] Performed By: #### 2 842-3 #### [facility] CLIA [id number] [address] [place] [address] [place] Calcium [Mass/Vol] 9.1 mg/dL Normal 8.5-10.2 [facility] Comment on above: Order Comment: Speci men Type: BLOOD SPECIMEN Ordering Facility: [facility] Address: [address] [place] [address] Performed By: #### 2 842-3 #### [facility] CLIA [id number] [address] [place] [address] [place] Chloride [Moles/Vol] 105 mmol/L Normal 98-107 [facility] Comment on above: Order Comment: Speci men Type: BLOOD SPECIMEN Ordering Facility: [facility] Address: [address] [place] [address] Performed By: #### 2 842-3 #### [facility] CLIA [id number] [address] [place] [address] [place] CO2 [Moles/Vol] 22 mmol/L Normal 22-30 [facility] Comment on above: Order Comment: Speci men Type: BLOOD SPECIMEN Ordering Facility: [facility] Address: [address] [place] [address] Performed By: #### 2 842-3 #### [facility] CLIA [id number] [address] [place] [address] [place] Creatinine [Mass/Vol] 0.60 mg/dL Normal 0.58-0.96 [facility] Comment on above: Order Comment: Speci men Type: BLOOD SPECIMEN Ordering Facility: [facility] Address: [address] [place] [address] Performed By: #### 2 842-3 #### [facility] CLIA [id number] [address] [place] [address] [place] Creatinine and Glomerular filtration rate.predicted panel (S/P/Bld) 125 mL/min/1.73m??? Normal >=60 [facility] Comment on above: Order Comment: Speci men Type: BLOOD SPECIMEN Ordering Facility: [facility] Address: [address] [place] [address] Result Comment: Evelyn mated Glomerular Filtration Rate (eGFR) is calculated using the 2020 CKD-EPI creatinine equation. This equation utilizes serum creatinine, sex, and age as parameters. The creatinine assay has traceable calibration to isotope dilution-mass spectrometry. Refer to KDIGO guidelines for clinical interpretation. In patients with unstable renal function, e.g. those with acute kidney injury, the eGFR may not accurately reflect actual GFR. Performed By: #### 2 842-3 #### [facility] CLIA [id number] [address] [place] [address] [place] Glucose [Mass/Vol] 87 mg/dL Normal 74-99 [facility] Comment on above: Order Comment: Fredy mancuso Type: BLOOD SPECIMEN Ordering Facility: [facility] Address: [address] [place] [address] Result Comment: The [place] Diabetes Association (ADA) provides guidance for cutoff values for fasting glucose and random glucose. The ADA defines fasting as no caloric intake for at least 8 hours. Fasting plasma glucose results between 100 to 125 mg/dL indicate increased risk for diabetes (prediabetes). Fasting plasma glucose results greater than or equal to 126 mg/dL meet the criteria for diagnosis of diabetes. In the absence of unequivocal hyperglycemia, results should be confirmed by repeat testing. In a patient with classic symptoms of hyperglycemia or hyperglycemic crisis, random plasma glucose results greater than or equal to 200 mg/dL meet the criteria for diagnosis of diabetes. Reference: Standards of Medical Care in Diabetes 2016, [place] Diabetes Association. Diabetes Care. 2016.39(Suppl 1). Performed By: #### 2 842-3 #### [facility] CLIA [id number] [address] [place], [place] [address] [place] Potassium [Moles/Vol] 3.9 mmol/L Normal 3.7-5.1 [facility] Comment on above: Order Comment: Fredy mancuso Type: BLOOD SPECIMEN Ordering Facility: [facility] Address: [address] [place] [address] Performed By: #### 2 842-3 #### [facility] CLIA [id number] [address] [address] [place] Protein [Mass/Vol] 6.5 g/dL Normal 6.3-8.0 [facility] Comment on above: Order Comment: Speci men Type: BLOOD SPECIMEN Ordering Facility: [facility] Address: [address] [place] [address] Performed By: #### 2 842-3 #### [facility] CLIA [id number] [address] [place] [address] [place] Sodium [Moles/Vol] 138 mmol/L Normal 136-144 [facility] Comment on above: Order Comment: Speci men Type: BLOOD SPECIMEN Ordering Facility: [facility] Address: [address] [place] [address] Performed By: #### 2 842-3 #### [facility] CLIA [id number] [address] [place] [address] [place] Urea nitrogen [Mass/Vol] 11 mg/dL Normal 7-21 [facility] Comment on above: Order Comment: Speci men Type: BLOOD SPECIMEN Ordering Facility: [facility] Address: [address] [place] [address] Performed By: #### 2 842-3 #### [facility] CLIA [id number] [address] [place] [address] [place] [id number] PLUSon 03-19-2025 Cell-free DNA./Cell-free DNA.total Dosage of chromosome-specific cfDNA (cfDNA) [Molar fraction] 16% Normal [facility] Comment on above: Order Comment: Speci men Type: BLOOD SPECIMENOrdering Facility: [facility] Address: [address] [place] [address] Performed By: #### M AT21 ####[facility] LABIA [id number] [place] [address] Chr 13+18+21+X+Y aneuploidy Dosage of chromosome-specific cfDNA Ql (cfDNA) Negative Normal [facility] Comment on above: Order Comment: Speci men Type: BLOOD SPECIMENOrdering Facility: [facility] Address: [address], [place] [address] Performed By: #### M AT21 ####[facility] LABCLIA [id number] [place] [address] Chr 21 trisomy Dosage of chromosome-specific cfDNA Ql (cfDNA) Negative Normal [facility] Comment on above: Order Comment: Speci men Type: BLOOD SPECIMENOrdering Facility: [facility] Address: [address] [place] [address] Performed By: #### M AT21 ####[facility] LABCLIA [id number] [place] [address] Chr X and Y aneuploidy risk Sequencing Ql (cfDNA) [Interp] Not detected Normal [facility] Comment on above: Order Comment: Speci men Type: BLOOD SPECIMENOrdering Facility: [facility] Address: [address] [place] [address] Result Comment: Not Detected Not Detected Performed By: #### M AT21 ####[facility] LABCLIA [id number] [place] [id number] Citation Jules (Reference lab test) Comment Normal [facility] Comment on above: Order Comment: Speci men Type: BLOOD SPECIMENOrdering Facility: [facility] Address: [address] [place] [address] Result Comment: 1. P adam HARRELL, et al. Anh Med. 2012;14(3):296-305. 2. Omari KIM et al. Prenat Diag. 2013;33(6):591-597. 3. Lg C, et al. Clin Chem. 2015 Apr;61(4):608-616. 4. Lalo HARRELL et al. Anh Med. 2011;13(11):913-920. 5. ACOG/SMFM Practice Bulletin No. 226, Jul 2020. Performed By: #### M AT21 ####[facility] LABCLIA [id number] [place] [address] Gestational age Estimated from conception date Joseph Normal [facility] Comment on above: Order Comment: Speci men Type: BLOOD SPECIMENOrdering Facility: [facility] Address: [address] [place] [address] Performed By: #### M AT21 ####[facility] LABCLIA [id number] [place] [address] GESTATIONALAGE AGE > OR = 9W Yes Normal [facility] Comment on above: Order Comment: Speci men Type: BLOOD SPECIMENOrdering Facility: [facility] Address: [address] [place] [address] Performed By: #### M AT21 ####[facility] LABCLIA [id number] [place] [address] Laboratory comment Jules (Report) Comment Normal [facility] Comment on above: Order Comment: Mikeli jamee Type: BLOOD SPECIMENOrdering Facility: [facility] Address: [address] [place] [address] Result Comment: The MaterniT(R) 21 PLUS laboratory-developed test (LDT) analyzes circulating cell-free DNA from a maternal blood sample. This test is used for screening purposes and not diagnostic. Clinical correlation is recommended. Validation data on twin pregnancies is limited and the ability of this test to detect aneuploidy in higher multiple gestations has not yet been validated. Performed By: #### M AT21 ####[facility] LABCLIA [id number] [place] [address] director of sales marketing name Nom (Provider) Comment Normal [facility] Comment on above: Order Comment: Speci men Type: BLOOD SPECIMENOrdering Facility: [facility] Address: [address] [place] [address] Result Comment: This specimen showed an expected representation of chromosome 21, 18 and 13 material. Clinical correlation is suggested. Comment Lucas French MD, PhD, Director, [employer] Performed By: #### M AT21 ####[facility] LABCLIA [id number] [place] [address] LIMITATIONS OF THE TEST Comment Normal [facility] Comment on above: Order Comment: Mikeli men Type: BLOOD SPECIMENOrdering Facility: [facility] Address: [address] [place] [address] Result Comment: Whil e the results of these tests are highly reliable, discordant results, including inaccurate sex prediction, may occur due to placental, maternal, or mosaicism or neoplasm; vanishing twin; prior maternal organ transplant; or other causes. These tests are screening tests and not diagnostic; they do not replace the accuracy and precision of diagnosis with CVS or amniocentesis. A patient with a positive test result should be referred for genetic counseling and offered invasive diagnosis for confirmation of test results.[5] The results of this testing, including the benefits and limitations, should be discussed with a qualified healthcare provider. management decisions, including termination of the , should not be based on the results of these tests alone. The healthcare provider is responsible for the use of this information in the management of their patient. Sex chromosomal aneuploidies are not reportable for known multiple gestations. A negative result does not ensure an unaffected nor does it exclude the possibility of other chromosomal abnormalities or defects which are not a part of these tests. An uninformative result may be reported, the causes of which may include, but are not limited to, insufficient sequencing coverage, noise or artifacts in the region, amplification or sequencing bias, or insufficient fraction. These tests are not intended to identify pregnancies at risk for neural tube defects or ventral wall defects. Testing for whole chromosome abnormalities (including sex chromosomes) and for subchromosomal abnormalities could lead to the potential discovery of both and maternal genomic abnormalities that could have major, minor, or no, clinical significance. Evaluating the significance of a positive or a non-reportable result may involve both invasive testing and additional studies on the mother. Such investigations may lead to a diagnosis of maternal chromosomal or subchromosomal abnormalities, which on occasion may be associated with benign or malignant maternal neoplasms. These tests may not accurately identify triploidy, balanced rearrangements, or the precise location of subchromosomal duplications or deletions; these may be detected by diagnosis with CVS or amniocentesis. The ability to report results may be impacted by maternal BMI, maternal weight, maternal systemic lupus erythematosus (SLE) and/or by certain pharmaceutical agents such as low molecular weight heparin (for example: Lovenox(R), Xaparin(R), Clexane(R) and Fragmin(R)). Performed By: #### M AT21 ####[facility] LABIA [id number] [place] [id number] Monosomy X risk Dosage of chromosome-specific cfDNA Ql (Plasma cell-free+WBC DNA) [Interp] Not detected Normal [facility] Comment on above: Order Comment: Fredy jamee Type: BLOOD SPECIMENOrdering Facility: [facility] Address: [address] [place] [address] Performed By: #### M AT21 ####[employer] LABCLIA [id number] [place] [address] NEGATIVE PREDICTIVE VALUE Note Normal [facility] Comment on above: Order Comment: Mikelremberto mancuso Type: BLOOD SPECIMENOrdering Facility: [facility] Address: [address] [place] [address] Result Comment: The Negative Predictive Value (NPV) for trisomy 21, 18, and 13 is greater than 99%. The NPV for SCA and ESS cannot be calculated as SCA and ESS are only reported when an abnormality is detected. Performed By: #### M AT21 ####[employer] LABCLIA [id number] [place] [address] PERFORMANCE CHARACTERISTICS Note Normal [facility] Comment on above: Order Comment: Fredy mancuso Type: BLOOD SPECIMENOrdering Facility: [facility] Address: [address] [place] [address] Result Comment: ! Sex ! Accuracy: 99.4% ! ! ! ! Region (associated syndrome) ! Est. Sens# ! Est. Spec ! ! ! ! Trisomy 21 (Down Syndrome) ! 99.1% ! 99.9% ! ! ! ! Trisomy 18 (Cedeno Syndrome) ! >99.9% ! 99.6% ! ! ! ! Trisomy 13 (Patau Syndrome) ! 91.7% ! 99.7% ! ! ! ! Sex Chromosome Aneuploidies## ! 96.2% ! 99.7% ! ! ! * As reported in ISCA database nstd37 [https://www.ncbi.nlm.nih.gov/dbvar/studies/nstd37/ ] # Estimated Sensitivity. Sensitivity estimated across the observed size distribution of each syndrome [per ISCA database nstd37] and across the range of fractions observed in routine clinical NIPT. Actual sensitivity can also be influenced by other factors such as the size of the event, total sequence counts, amplification bias, or sequence bias. ## Joseph gestation only. Performed By: #### M AT21 ####[facility] [id number] [place] [address] POSITIVE PREDICTIVE VALUE N/A Normal [facility] Comment on above: Order Comment: Speci men Type: BLOOD SPECIMENOrdering Facility: [facility] Address: [address] [place] [address] Performed By: #### M AT21 ####[facility] LABCLIA [id number] [place] [id number] Reference Lab Test Method Comment Normal [facility] Comment on above: Order Comment: Speci men Type: BLOOD SPECIMENOrdering Facility: [facility] Address: [address] [place] [address] Result Comment: See Notes Circulating cell-free DNA was purified from the plasma component of maternal blood. The extracted DNA was then converted into a genomic DNA library for aneuploidy analysis of chromosomes 21, 18, and 13 via next generation sequencing.[1] Optional findings based on the test order include sex chromosome aneuploidy (SCA)[2], and enhanced sequencing series (ESS)[3], which will only be reported on as an additional finding when an abnormality is detected. SCA testing includes information on X and Y representation, while ESS testing includes deletions in selected regions (22q, 15q, 11q, 8q, 5p, 4p, 1p) and trisomy of chromosomes 16 and 22. Performed By: #### M AT21 ####[facility] LABIA [id number] [place] [address] Service comment (Unsp spec) [Interp] Comment Normal [facility] Comment on above: Order Comment: Speci men Type: BLOOD SPECIMENOrdering Facility: [facility] Address: [address] [place] [address] Result Comment: See Notes [employer] is a subsidiary of [employer], using the brand [employer]. This test was developed and its performance characteristics determined by [employer]. It has not been cleared or approved by the Food and Drug Administration. This laboratory is certified under the Clinical Laboratory Improvement Amendments (CLIA) as qualified to perform high complexity clinical laboratory testing and accredited by the [employer] [place] [employer] (CAP). If there is future clinical need for adding MaterniT GENOME testing, this specimen will be available until term. [facility] samples will not be retained beyond 60 days. [facility] patients will have to send a new sample for re-sequencing ([facility] Test Code: [id number]). Performed By: #### M AT21 ####[facility] [id number] [place] [address] Sex Dosage of chromosome-specific cfDNA Nom (cfDNA) Comment Normal [facility] Comment on above: Order Comment: Speci men Type: BLOOD SPECIMENOrdering Facility: [facility] Address: [address] [place] [address] Result Comment: Cons istent with Male Performed By: #### M AT21 ####[facility] [id number] [place] [address] Test performance information Jules (Unsp spec) Comment Normal [facility] Comment on above: Order Comment: Speci men Type: BLOOD SPECIMENOrdering Facility: [facility] Address: [address] [place] [address] Result Comment: The performance characteristics of the MaterniT(R) 21 PLUS laboratory-developed test (LDT) have been determined in a clinical validation study with women at increased risk for chromosomal aneuploidy.[1-4] Performed By: #### M AT21 ####[facility] [id number] [place] [address] Trisomy 13 risk Dosage of chromosome-specific cfDNA Ql (cfDNA) [Interp] Negative Normal [facility] Comment on above: Order Comment: Speci men Type: BLOOD SPECIMENOrdering Facility: [facility] Address: [address] [place] [address] Performed By: #### M AT21 ####[facility] [id number] [place] [address] Trisomy 18 risk Dosage of chromosome-specific cfDNA Ql (Plasma cell-free+WBC DNA) [Interp] Negative Normal [facility] Comment on above: Order Comment: Speci men Type: BLOOD SPECIMENOrdering Facility: [facility] Address: [address] [place] [address] Performed By: #### M AT21 ####[facility] [id number] [place] [address] No Panel InformationOrdered By: Shima Robb on 03-19-2025 [facility] Prot/Creat Uron 03-19-2025 Protein/Creatinine (U) [Mass ratio] 0.09 mg/mg Normal <0.15 [facility] Comment on above: Order Comment: Speci men Type: URINE SPECIMENOrdering Facility: [facility] Address: [address] [place] [address] Result Comment: Adul t Proteinuria Categories: <0.15 mg/mg is considered normal to mildly increased 0.15 - 0.50 mg/mg is considered moderately increased >0.50 mg/mg is considered severely increased KDIGO. (2013). KDIGO 2012 Clinical Practice Guideline for the Evaluation and Management of Chronic Kidney Disease. Official Journal of the International Society of Nephrology, 3(1), 1-150. Performed By: #### 2 890-2 ####[facility] [id number] [place] [address] [place] Protein/Creatinine (U) [Mass ratio]on 03-19-2025 Creatinine (U) [Mass/Vol] 85.8 mg/dL Normal 20.0-300.0 [facility] Comment on above: Order Comment: Speci men Type: URINE SPECIMENOrdering Facility: [facility] Address: [address] [place] [address] Performed By: #### 2 890-2 ####[facility] [id number] [place] [address] [place] Protein (U) [Mass/Vol] 8 mg/dL Normal 0-20 [facility] Comment on above: Order Comment: Speci men Type: URINE SPECIMENOrdering Facility: [facility] Address: [address] [place] [address] Performed By: #### 2 890-2 ####[facility] [id number] [address] [address] [place] URIC ACIDon 03-19-2025 Urate [Mass/Vol] 3.9 mg/dL 2.5 - 6.6 mg/dL [facility] Urate SerPl-mCncon 5 Urate [Mass/Vol] 3.9 mg/dL Normal 2.5-6.6 [facility] Comment on above: Order Comment: Speci men Type: BLOOD SPECIMEN [facility]ing [facility] Address: [address] [place] [address] Performed By: #### 2 842-3 #### [facility] CLIA [id number] [address] [place] [address] [place] Urate [Mass/Vol]on 5 Interpretation and review of laboratory results Normal [facility] CBC W Auto Diff Bldon 2024 MCH (RBC) [Entitic mass] 29.2 pg Normal 26.0-34.0 [facility] Comment on above: Order Comment: Speci men Type: BLOOD SPECIMEN [facility] Address: [address] [place] [address] Performed By: #### 2 842-3 #### [facility] CLIA [id number] [address] [place] [address] [place] Order Comment: Speci men Type: BLOOD SPECIMENOrdering Facility: [facility] Address: [address] [place] [address] Performed By: #### L [id number] ####[facility] [id number] [place] [address] [place] CBC W Auto Differential pane l (Bld)on 03-05-2025 Basophils (Bld) [#/Vol] 0.06 10*3/uL Normal <0.11 [facility] Comment on above: Order Comment: Speci men Type: BLOOD SPECIMEN [facility]ing [facility] Address: [address] [place] [address] Performed By: #### 2 842-3 #### [facility] CLIA [id number] [address] [place] [address] [place] Basophils/100 WBC (Bld) 0.5 % Normal [facility] Comment on above: Order Comment: Speci men Type: BLOOD SPECIMEN [facility]ing [facility]: [facility] Address: [address] [place] [address] Performed By: #### 2 842-3 #### [facility] CLIA [id number] [address] [place] [address] [place] Differential cell count method Nom (Bld) Auto Normal [facility] Comment on above: Order Comment: Speci men Type: BLOOD SPECIMEN [facility]ing [facility]: [facility] Address: [address] [place] [address] Performed By: #### 2 842-3 #### [facility] CLIA [id number] [address] [place] [address] [place] Eosinophils (Bld) [#/Vol] 0.16 10*3/uL Normal <0.46 [facility] Comment on above: Order Comment: Speci men Type: BLOOD SPECIMEN [facility]ing [facility]: [facility] Address: [address] [place] [address] Performed By: #### 2 842-3 #### [facility] CLIA [id number] [address] [place] [address] [place] Eosinophils/100 WBC (Bld) 1.5 % Normal [facility] Comment on above: Order Comment: Speci men Type: BLOOD SPECIMEN [facility]ing [facility]: [facility] Address: [address] [place] [address] Performed By: #### 2 842-3 #### [facility] CLIA [id number] [address] [place] [address] [place] Erythrocyte distribution width (RBC) [Ratio] 13.1 % Normal 11.5-15.0 [facility] Comment on above: Order Comment: Speci men Type: BLOOD SPECIMEN [facility]ing [facility]: [facility] Address: [address] [place] [address] Performed By: #### 2 842-3 #### [facility] CLIA [id number] [address] [place] [address] [place] Hematocrit (Bld) [Volume fraction] 35.6 % Low 36.0-46.0 [facility] Comment on above: Order Comment: Speci men Type: BLOOD SPECIMEN [facility] Address: [address] [place] [address] Performed By: #### 2 842-3 #### [facility] CLIA [id number] [address] [place] [address] [place] Hemoglobin (Bld) [Mass/Vol] 11.6 g/dL Normal 11.5-15.5 [facility] Comment on above: Order Comment: Speci men Type: BLOOD SPECIMEN [facility]ing [facility]: [facility] Address: [address] [place] [address] Performed By: #### 2 842-3 #### [facility] CLIA [id number] [address] [place] [address] [place] Immature granulocytes (Bld) [#/Vol] 0.04 10*3/uL Normal <0.10 [facility] Comment on above: Order Comment: Speci men Type: BLOOD SPECIMEN [facility]ing [facility]: [facility] Address: [address] [place] [address] Performed By: #### 2 842-3 #### [facility] CLIA [id number] [address] [place] [address] [place] Immature granulocytes/100 WBC (Bld) 0.4 % Normal [facility] Comment on above: Order Comment: Speci men Type: BLOOD SPECIMEN [facility]ing [facility]: [facility] Address: [address] [place] [address] Performed By: #### 2 842-3 #### [facility] CLIA [id number] [address] [place] [address] [place] Lymphocytes (Bld) [#/Vol] 3.06 10*3/uL Normal 1.00-4.00 [facility] Comment on above: Order Comment: Speci men Type: BLOOD SPECIMEN Ordering [facility]: [facility] Address: [address] [place] [address] Performed By: #### 2 842-3 #### [facility] CLIA [id number] [address] [place] [address] [place] Lymphocytes/100 WBC (Bld) 27.8 % Normal [facility] Comment on above: Order Comment: Speci men Type: BLOOD SPECIMEN [facility]ing [facility]: [facility] Address: [address] [place] [address] Performed By: #### 2 842-3 #### [facility] CLIA [id number] [address] [place] [address] [place] MCHC (RBC) [Mass/Vol] 32.6 g/dL Normal 30.5-36.0 [facility] Comment on above: Order Comment: Speci men Type: BLOOD SPECIMEN Ordering [facility]: [facility] Address: [address] [place] [address] Performed By: #### 2 842-3 #### [facility] CLIA [id number] [address] [place] [address] [place] MCV (RBC) [Entitic vol] 89.7 fL Normal 80.0-100.0 [facility] Comment on above: Order Comment: Speci men Type: BLOOD SPECIMEN [facility]ing [facility]: [facility] Address: [address] [place] [address] Performed By: #### 2 842-3 #### [facility] CLIA [id number] [address] [place] [address] [place] Monocytes (Bld) [#/Vol] 0.87 10*3/uL High <0.87 [facility] Comment on above: Order Comment: Speci men Type: BLOOD SPECIMEN Ordering [facility]: [facility] Address: [address] [place] [address] Performed By: #### 2 842-3 #### [facility] CLIA [id number] [address] [place] [address] [place] Monocytes/100 WBC (Bld) 7.9 % Normal [facility] Comment on above: Order Comment: Speci men Type: BLOOD SPECIMEN [facility]ing [facility]: [facility] Address: [address] [place] [address] Performed By: #### 2 842-3 #### [facility] CLIA [id number] [address] [place] [address] [place] Neutrophils (Bld) [#/Vol] 6.81 10*3/uL Normal 1.45-7.50 [facility] Comment on above: Order Comment: Speci men Type: BLOOD SPECIMEN [facility]ing [facility]: [facility] Address: [address] [place] [address] Performed By: #### 2 842-3 #### [facility] CLIA [id number] [address] [place] [address] [place] Neutrophils/100 WBC (Bld) 61.9 % Normal [facility] Comment on above: Order Comment: Speci men Type: BLOOD SPECIMEN [facility]ing [facility]: [facility] Address: [address] [place] [address] Performed By: #### 2 842-3 #### [facility] CLIA [id number] [address] [place] [address] [place] Nucleated RBC (Bld) [#/Vol] 10*3/uL Normal <0.01 [facility] Comment on above: Order Comment: Speci men Type: BLOOD SPECIMEN [facility]ing [facility]: [facility] Address: [address] [place] [address] Performed By: #### 2 842-3 #### [facility] CLIA [id number] [address] [place] [address] [place] Nucleated RBC/100 WBC (Bld) [Ratio] 0.0 /100 WBC Normal [facility] Comment on above: Order Comment: Speci men Type: BLOOD SPECIMEN [facility]ing [facility]: [facility] Address: [address] [place] [address] Performed By: #### 2 842-3 #### [facility] CLIA [id number] [address] [place] [address] [place] Platelet mean volume (Bld) [Entitic vol] 9.9 fL Normal 9.0-12.7 [facility] Comment on above: Order Comment: Speci men Type: BLOOD SPECIMEN Ordering [facility]: [facility] Address: [address] [place] [address] Performed By: #### 2 842-3 #### [facility] CLIA [id number] [address] [place] [address] [place] Platelets (Bld) [#/Vol] 370 10*3/uL Normal 150-400 [facility] Comment on above: Order Comment: Speci men Type: BLOOD SPECIMEN [facility]ing [facility]: [facility] Address: [address] [place] [address] Performed By: #### 2 842-3 #### [facility] CLIA [id number] [address] [place] [address] [place] RBC (Bld) [#/Vol] 3.97 10*6/uL Normal 3.90-5.20 [facility] Comment on above: Order Comment: Speci men Type: BLOOD SPECIMEN [facility]ing [facility]: [facility] Address: [address] [place] [address] Performed By: #### 2 842-3 #### [facility] CLIA [id number] [address] [place] [address] [place] WBC (Bld) [#/Vol] 11.00 10*3/uL Normal 3.70-11.00 [facility] Comment on above: Order Comment: Speci men Type: BLOOD SPECIMEN [facility]ing [facility]: [facility] Address: [address] [place] [address] Performed By: #### 2 842-3 #### [facility] CLIA [id number] [address] [place] [address] [place] HBV surface Ag Ser Qlon 02-06 HBV surface Ag Ql (S) Negative Normal Negative [facility] Comment on above: Order Comment: Speci men Type: BLOOD SPECIMENOrdering Facility: [facility] Address: [address] [place] [address] Performed By: #### 5 195-3, 86139-7, 14505-8 ####[facility] [id number] [place] [address] [place] HCV Ab Ser Qlon 03-05-2025 HCV Ab Ql (S) Negative Normal Negative [facility] Comment on above: Order Comment: Speci men Type: BLOOD SPECIMENOrdering Facility: [facility] Address: [address] [place] [address] Result Comment: The result suggests no evidence of infection with Hepatitis C virus. Should recent infection be suspected, repeat testing may be considered 4-6 weeks after this draw. Performed By: #### 1 6128-1 ####[facility] [id number] [place] [address] [place] HGB ELECTROPHORESIS FOR EVAL (LAB ORDER)on 03-05-2025 Hemoglobin A (Bld) [Mass fraction] 97.4 % Normal 96.2-98.0 [facility] Comment on above: Order Comment: Speci men Type: BLOOD SPECIMENOrdering Facility: [facility] Address: [address] [place] [address] Performed By: #### H GBELEV, [id number] ####[facility] [id number] [place] [address] [place] Hemoglobin A2 (Bld) [Mass fraction] 2.6 % Normal 2.0-3.1 [facility] Comment on above: Order Comment: Speci men Type: BLOOD SPECIMENOrdering Facility: [facility] Address: [address] [place] [address] Performed By: #### Penelope ABARCA [id number] ####[facility] [id number] [place] [address] [place] Hemoglobin Unsp Elph (Bld) [Mass fraction] No abnormal hemoglobin identified. Normal No abnormal hemoglobin identified. [facility] Comment on above: Order Comment: Speci men Type: BLOOD SPECIMENOrdering Facility: [facility] Address: [address] [place] [address] Performed By: #### Penelope ABARCA [id number] ####[facility] [id number] [place] [address] [place] HGB EVALUATION CASCADE INTER Tim 03-05-2025 Hemoglobin pattern (Bld) [Interp] Reviewed by Zenaida Aguirre M.D., Ph.D Normal [facility] Comment on above: Order Comment: Speci men Type: BLOOD SPECIMENOrdering Facility: [facility] Address: [address] [place] [address] Performed By: #### Penelope ABARCA [id number] ####[facility] [id number] [place] [address] [place] INTERPRETATION (HGB EVAL) Normal [facility] Comment on above: Order Comment: Speci men Type: BLOOD SPECIMENOrdering Facility: [facility] Address: [address] [place] [address] Result Comment: Hemo globins were analyzed by capillary electrophoresis and CBC red cell parameters were reviewed. No abnormal hemoglobin is identified. There is a normal hemoglobin capillary electrophoresis pattern. Performed By: #### Penelope ABARCA, [id number] ####[facility] [id number] [place] [address] [place] HIV 1+2 Ab IA Qlon HIV 1 and 2 Ab IA.rapid Nom (S/P/Bld) Normal [facility] Comment on above: Order Comment: Speci men Type: BLOOD SPECIMENOrdering Facility: [facility] Address: [address] [place] [address] Result Comment: Test not indicated. Performed By: #### 5 195-3, 41815-3, 32295-4 ####[facility] [id number] [place] [address] [place] HIV 1+2 Ab+HIV1 p24 Ag IA Ql Non-Reactive Normal Nonreactive [facility] Comment on above: Order Comment: Speci men Type: BLOOD SPECIMENOrdering Facility: [facility] Address: [address] [place] [address] Performed By: #### 5 195-3, 36426-8, 47588-3 ####[facility] [id number] [place] [address] [place] HIV immunoassay testing algorithm interpretation (S/P/Bld) [Interp] Normal [facility] Comment on above: Order Comment: Speci men Type: BLOOD SPECIMENOrdering Facility: [facility] Address: [address] [place] [address] Result Comment: No e vidence of HIV-1 or HIV-2 infection. Should recent infection be suspected, repeat testing may be considered 2-3 weeks after this draw. [place] Rev. Code 3701.243(E): This information has been disclosed to you from confidential records protected from disclosure by state law. You shall make no further disclosure of this information without the specific, written, and informed release of the individual to whom it pertains or as otherwise permitted by state law. A general authorization for the release of medical or other information is not sufficient for the purpose of the release of HIV test results or diagnoses. Performed By: #### 5 195-3, 71831-0, 90562-1 ####[facility] [id number] [address] [address] [place] HbA1c (Bld)on 03-05-2025 Average glucose Estimated from glycated hemoglobin (Bld) [Mass/Vol] 103 mg/dL Normal [facility] Comment on above: Order Comment: Mikeli men Type: BLOOD SPECIMENOrdering Facility: [facility] Address: [address] [place] [address] Result Comment: eAG: (Estimated average glucose) is a calculated value from HgbA1c and is inbound sales representative of the average blood glucose level in the last 2-3 month period. Performed By: #### 5 5454-3 ####[facility] [id number] [place] [address] [place] HbA1c (Bld) [Mass fraction] 5.2 % Normal 4.3-5.6 [facility] Comment on above: Order Comment: Fredy jamee Type: BLOOD SPECIMENOrdering Facility: [facility] Address: [address] [place] [address] Result Comment: [place] Diabetes Association guidelines indicate that patients with HgbA1c in the range 5.7-6.4% are at increased risk for development of diabetes, and intervention by lifestyle modification may be beneficial. HgbA1c greater or equal to 6.5% is considered diagnostic of diabetes. Performed By: #### 5 5454-3 ####[facility] [id number] [address] [place] RBC PARAMETERS FOR HB IDon 0 03-05-2025 Erythrocyte distribution width (RBC) [Ratio] 13.2 % Normal 11.5-15.0 [facility] Comment on above: Order Comment: Fredy men Type: BLOOD SPECIMENOrdering Facility: [facility] Address: [address] [place] [address] Performed By: #### L [id number] ####[facility] [id number] [address] [place] Hematocrit (Bld) [Volume fraction] 36.3 % Normal 36.0-46.0 [facility] Comment on above: Order Comment: Fredy men Type: BLOOD SPECIMENOrdering Facility: [facility] Address: [address] [place] [address] Performed By: #### L [id number] ####[facility] [id number] [place] [address] [place] Hemoglobin (Bld) [Mass/Vol] 11.9 g/dL Normal 11.5-15.5 [facility] Comment on above: Order Comment: Speci men Type: BLOOD SPECIMENOrdering Facility: [facility] Address: [address] [place] [address] Performed By: #### L [id number] ####[facility] [id number] [place] [address] [place] MCHC (RBC) [Mass/Vol] 32.8 g/dL Normal 30.5-36.0 [facility] Comment on above: Order Comment: Speci men Type: BLOOD SPECIMENOrdering Facility: [facility] Address: [address] [place] [address] Performed By: #### L [id number] ####[facility] [id number] [place] [address] [place] MCV (RBC) [Entitic vol] 89.0 fL Normal 80.0-100.0 [facility] Comment on above: Order Comment: Speci men Type: BLOOD SPECIMENOrdering Facility: [facility] Address: [address] [place] [address] Performed By: #### L [id number] ####[facility] [id number] [place] [address] [place] RBC (Bld) [#/Vol] 4.08 10*6/uL Normal 3.90-5.20 [facility] Comment on above: Order Comment: Speci men Type: BLOOD SPECIMENOrdering Facility: [facility] Address: [address] [place] [address] Performed By: #### L [id number] ####[facility] [id number] [place] [address] [place] RUBELLA IGG ANTIBODYon 03-05 RUBELLA IGG AB, QUAL Positive Normal Positive [facility] Comment on above: Order Comment: Speci men Type: BLOOD SPECIMENOrdering Facility: [facility] Address: [address] [place] [address] Result Comment: The result suggests recent or past exposure to Rubella virus or history of Rubella vaccination. Positive result may also be seen due to presence of passively-transferred antibodies. Please correlate with patient's history. Performed By: #### R [id number] ####[facility] [id number] [place] [address] [place] Reagin and Treponema pallidu m IgG and IgM [Interp]on 03-05-2025 T. pallidum IgG+IgM IA Ql (S) Non-Reactive Normal Nonreactive [facility] [facility] Comment on above: Order Comment: Speci men Type: BLOOD SPECIMENOrdering Facility: [facility] Address: [address] [place] [address] Performed By: #### 5 195-3, 62194-9, 37479-7 ####[facility] [id number] [place] [address] [place] Reagin+T pallidum IgG+IgM Se rPl-Impon 03-05-2025 Reagin and Treponema pallidum IgG and IgM [Interp] Cannot exclude recent Treponemal infection if specimen collected within 7-10 days after appearance of suspect lesions or 2-3 weeks after an exposure. Clinical correlation is required. Normal [facility] Comment on above: Order Comment: Speci men Type: BLOOD SPECIMENOrdering Facility: [facility] Address: [address] [place] [address] Performed By: #### 5 195-3, 23389-0, 27172-1 ####[facility] [id number] [place] [address] [place] TYPE + SCREEN PRENATALon ABO A Normal [facility] Comment on above: Order Comment: Speci men Type: BLOOD SPECIMENOrdering Facility: [facility] Address: [address] [place] [address] Performed By: #### T SPN ####[facility]LO[facility] BANKCLIA [id number] [address] [place] Rh Nom (Bld) Positive Normal [facility] Comment on above: Order Comment: Speci men Type: BLOOD SPECIMENOrdering Facility: [facility] Address: [address] [place] [address] Performed By: #### T SPN ####CC [facility] BLOOD BANKCLIA [id number] [address] TYPE AND SCREEN EXPIRATION 03/08/2025 23:59 Normal [facility] Comment on above: Order Comment: Speci men Type: BLOOD SPECIMENOrdering Facility: [facility] Address: [address] [place] [address] Performed By: #### T SPN ####CC [facility] BLOOD BANKCLIA [id number] [address] [place] Examination level ultrasound on 03-03-2025 Indication First trimester anatomic survey Maternal obesity, BMI >35 Impression The patient is referred for a first trimester anatomy scan including nuchal translucency measurement as clinically indicated. - Single, live, intrauterine . - Osburn rump length measurement is consistent with the established gestational age. - No malformations visualized on first trimester anatomic assessment. - The nuchal translucency measurement is 1.6 mm. - Not all structural malformations can be detected by ultrasound examination. Maternal Structures: Right Ovary: Size 32 mm x 18 mm x 21 mm Left Ovary: Size 21 mm x 19 mm x 10 mm Recommendations - A standard anatomic survey at 16 weeks can be offered and a detailed exam at 20 weeks is recommended for increased risk. Maternal Assessment Height 163 cm Height (ft) 5 ft Height (in) 4 in Physical Exam Initial weight (lb) 220 lb Initial BMI 37.76 kg/m Maternal assessment other: 1 Para 0 REMOTE READ Method Transabdominal ultrasound examination Joseph . Number of fetuses: 1 Dating LMP on: 11/27/2024 GA by LMP 13 w + 5 d LILIANE by LMP: 09/03/2025 GA by prior assessment 13 w + 5 d LILIANE by prior assessment: 09/03/2025 Ultrasound examination on: 03/03/2025 GA by U/S based upon: CRL GA by U/S 13 w + 3 d LILIANE by U/S: 09/05/2025 Assigned: based on stated LILIANE, selected on 03/03/2025 Assigned GA 13 w + 5 d Assigned LILIANE: 09/03/2025 General Evaluation Cardiac activity present Placenta: posterior Cord vessels: 3 vessel cord Amniotic fluid: normal amount Biometry Standard FHR 134 bpm CRL 72.4 mm 13w 3d 30% Hadlock NT 1.60 mm First Trimester Anatomy Calvarium: normal Falx cerebri: normal Choroid plexus: normal Profile: normal Nasal bone: normal Retronasal triangle: normal Maxilla: normal Mandible: normal Nuchal translucency: Unremarkable Situs: normal Cardiac position: normal Cardiac axis: normal 4-chamber view: visualized 4-chamber view with color: visualized 3-hexwjw-tbaoofu view: normal Abdominal cord insertion: normal Stomach: normal Kidneys: normal Bladder: normal Color doppler of perivesical umbilical arteries: normal Vertebral alignment: normal Arms: normal Hands: normal Legs: normal Feet: normal Maternal Structures Uterus / Cervix Uterus: Visualized Uterus length 112 mm Uterus width 98 mm Uterus height 76 mm Uterus Vol 438.6 cm Ovaries / Tubes / Adnexa Rt ovary: Visualized Rt ovary D1 32 mm Rt ovary D2 18 mm Rt ovary D3 21 mm Rt ovary Vol 6.2 cm Lt ovary: Visualized Lt ovary D1 21 mm Lt ovary D2 19 mm Lt ovary D3 10 mm Lt ovary Vol 2.2 cm Performed By: Eulalia Munoz, MARY, RVT Read By: Teena Pena M.D. MATERNAL MEDICINE [facility] Radiology Study observation (narrative) [facility] BACTERIAL VAGINOSIS NAATon 0 01-29-2025 Lactobacillus crispatus+gasseri+je nsenii + Gardnerella vaginalis + Atopobium vaginae rRNA GERARD+probe Ql (Vag fld) Not detected Normal Not detected [facility] Comment on above: Order Comment: Speci men Type: SWABOrdering Facility: [facility] Address: [address] [place] [address] Performed By: #### B ALMA ROSA USV ####[facility] [id number] [place] [address] [place] Bacteria Ur Culton Bacteria identified Cx Nom (U) ORGANISM ID: 1 50,000-<100,000 CFU/ml Normal urogenital tonio Normal [facility] Comment on above: Performed By: #### 6 30-4 ####[facility] [id number] [place] [address] [place] C. trachomatis+N. gonorrhoea e DNA GERARD+probe Ql (Unsp spec)on 01-29-2025 C. trachomatis rRNA GERARD+probe Ql (Unsp spec) Not detected Normal Not detected [facility] Comment on above: Order Comment: Speci men Type: SWABOrdering Facility: [facility] Address: [address] [place] [address] Performed By: #### 3 6902-5 ####[facility] [id number] [place] [address] [place] N. gonorrhoeae rRNA GERARD+probe Ql (Unsp spec) Not detected Normal Not detected [facility] Comment on above: Order Comment: Speci men Type: SWABOrdering Facility: [facility] Address: [address] [place] [address] Performed By: #### 3 6902-5 ####[facility] [id number] [place] [address] [place] DEUCE/TRICHOMONAS NAATon 0 01-29-2025 C. glabrata RNA GERARD+probe Ql (Vag fld) Not detected Normal Not detected [facility] Comment on above: Order Comment: Speci men Type: SWABOrdering Facility: [facility] Address: [address] [place] [address] Performed By: #### B VAMP, CVTV ####[facility] [id number] [address] [place] Deuce sp DNA GERARD+probe Ql (Vag fld) Detected Abnormal Not detected [facility] Comment on above: Order Comment: Speci men Type: SWABOrdering Facility: [facility] Address: [address] [place] [address] Result Comment: The Deuce species group target includes C. albicans, C. tropicalis, C. parapsilosis, and C. dubliniensis. Performed By: #### B VAMP, CVTV ####[facility] [id number] [address] T. vaginalis DNA GERARD+probe Ql (Unsp spec) Not detected Normal Not detected [facility] Comment on above: Order Comment: Speci men Type: SWABOrdering Facility: [facility] Address: [address] [place] [address] Performed By: #### B VAMP, CVTV ####[facility] [id number] [address] [place] CNOVon 11-20-2024 CNOV Office Visit (OBGYWM ) ----- JENNIFER HENLEY ([id number]) 1995 F Date Time Provider Department 11/20/24 7:30 AM ALBA ROSA OBROXANNA During your visit today, we recorded the following information about you: Blood pressure Weight Height Last Period 124/82 98.9 kg 1.613 m 10/14/24 Alba Rosa APRN.NAILER OPERATOR 11/20/2024 11:07 AM Signed Jennifer is a 29 year old who presents for an annual gynecologic exam with complaints, irregular bleeding. Stop OCP in Aug 07 2 periods were regular, LMP 10/13/24 Still get period: Yes Bleeding amount bothersome: No Bleeding between periods: No Period symptoms: Acne; Breast tenderness; Cramps; Mood change Time with current partner: 11 years Number of lifetime partners: 4 control frequency: Never HPV vaccine: Yes; HPV:N/A Last pap smear: 01/23/2023 History of abnormal pap: No, all prior PAP smears have been normal Bothersome pelvic pain: No Last mammogram: never OB History No obstetric history on file. [employer] History LMP: 10/14/2024 Age at Menarche: 10 Age at First : Age at Menopause: [employer] History Comments: Sexual Activity: Yes; Male Contraception: None Menstrual Tracking History Flowsheet Row Office Visit from 11/20/2024 in OB/Gynecology Period Cycle (Days) 31 Period Duration (Days) 5 Menstrual Flow Moderate PAST MEDICAL HISTORY Diagnosis Date Migraines POTS (postural orthostatic tachycardia syndrome) PAST SURGICAL HISTORY Procedure Laterality Date KNEE LEFT OP SURGERY Left REMOVAL GALLBLADDER FAMILY HISTORY Problem Relation Age of Onset other (scleroderma) Mother other (congestive heart) Father Alzheimer's Disease Maternal Grandmother SOCIAL HISTORY Social History Tobacco Use Smoking status: Never Smokeless tobacco: Never Vaping Use Vaping status: Never Used Substance Use Topics Alcohol use: Never Drug use: Never REVIEW OF SYSTEMS Abdomen: No abdominal pain, nausea, vomiting, diarrhea, or constipation. No bloating, early satiety, indigestion, or increased flatulence. Bladder: No dysuria, gross hematuria, urinary frequency, urinary urgency, or incontinence. Breast: No breast lumps, nipple d/c, overlying skin changes, redness or skin retraction. Allergies and current medication updated:Yes SENSITIVE EXAM: The sensitive examination was discussed with the Patient or Patient's Authorized Commercial Intelligence Manager. As applicable, any other physician, advance practice provider, medical student, or other health professional student that will be observing or involved in the sensitive examination for educational or training purposes was discussed with the Patient or Authorized Commercial Intelligence Manager. The Patient or Authorized Commercial Intelligence Manager has agreed to proceed with the sensitive examination. (Sensitive examination includes inspection and/or palpation of the breasts, pelvis, prostate and anorectal regions). EXAM: BP 124/82 Ht 5' 3.5 (1.61m) Wt 218 lb (98.9kg) LMP 10/14/2024 BMI 38.01 kg/(m2). GENERAL: pleasant, female in no apparent distress HEENT: Normocephalic, atraumatic, mucus membranes moist, and no lesions DERMATOLOGY: Normal, without lesions, non-icteric, and non-hirsute BREAST: soft, non-tender, symmetric, no dominant mass, normal nipple-areolar complex, no lymphadenopathy, and no nipple discharge CHEST: Normal inspiratory effort ABDOMEN: soft, non-tender, and no masses PELVIC: external genitalia normal, normal Bartholin's glands, urethra, Ponderosa's glands, no vulvar lesions, no cervical lesions, good vaginal support, physiologic discharge present, normal appearing perineal body and perianal region BIMANUAL: uterus normal size, shape and consistency, no adnexal masses, and non-tender RECTOVAGINAL: deferred. NEURO: alert and oriented x3,exam grossly non-focal EXTREMITIES: normal ASSESSMENT/PLAN: 1. Encounter for gynecological examination (general) (routine) without abnormal findings - ICD9: V72.31, ICD10: Z01.419 (primary diagnosis) - Completed pelvic and breast exam - Encouraged monthly BSE - Follow up for annual exam in one year. 2. Irregular menstrual cycle - ICD9: 626.4, ICD10: N92.6 Will notify patient of test results. - PROLACTIN - TESTOSTERONE, FREE AND TOTAL, BY EQUILIBRIUM ULTRAFILTRATION MASS SPECTROMETRY - DHEA-S BLD - HYDROXYPROGESTERONE-17 - FOLLICLE STIMULATING HORMONE - LUTEINIZING HORMONE - ESTRADIOL-17B BLD - HEMOGLOBIN A1C Alba Rosa, SCRIPT GIRL.NAILER OPERATOR Medical Decision Making: Problems: Moderate: New problem with uncertain prognosis Data: Unique test(s) ordered: 3+ Risk: Low: Low risk from testing/treatment Medical Decision Making Level: 4 - Moderate Allergies As of Date: 11/20/2024 Noted Allergy Reaction PENICILLINS 12/30/2017 4 - Hives ADHESIVE 11/20/2024 4 - Hives SUTURES 01/09/2024 4 - Hives CEPHALEXIN 03/10/2024 9 - Itching Date (more content not included)... Normal [facility] DHEA-S BLDon 11-20-2024 DHEA-S [Mass/Vol] 136.9 ug/dL Normal 98.8-340.0 [facility] Comment on above: Order Comment: Speci men Type: BLOOD SPECIMEN [facility] Address: [address] [place] [address] Result Comment: Refe rence ranges are age and gender specific. For additional information, reference range tables can be found in the laboratory test directory. The normal values are based on the following source: Dehydroepiandrosterone sulfate (DHEA S) [package insert V 17.0 Tajik]. [facility], [place], [place]: May 2013. Performed By: #### 2 842-3 #### [facility] CLIA [id number] [address] [place] [address] [place] Estradiol SerPl-mCncon 11-20 E2 [Mass/Vol] 59 pg/mL Normal [facility] Comment on above: Order Comment: Speci men Type: BLOOD SPECIMEN [facility] Address: [address] [place] [address] Result Comment: This test is not suitable for patients receiving treatment with the drug Fulvestrant (Faslodex). The drug causes an interference leading to falsely elevated estradiol results. Menstrual cycle Estradiol reference ranges: Follicular : < 234 pg/mL Ovulation : 41 to 398 pg/mL Luteal : < 342 pg/mL Estradiol reference ranges vary by gestational period: First trimester : 154 to 3243 pg/mL Second trimester : 1561 to 73537 pg/mL Third trimester : 8285 to >24900 pg/mL Post-menopausal Estradiol reference range: < 41 pg/mL Reference: 1. Estradiol - E2 (Estradiol III) [package insert V 3.0 Tajik]. [facility], [place], [place], March 2016. Performed By: #### 2 842-3 #### [facility] CLIA [id number] [address] [place] [address] [place] FSH SerPl-aCncon 11-20-2024 Follitropin Qn 3.4 m[IU]/mL Normal See comment [facility] Comment on above: Order Comment: Speci men Type: BLOOD SPECIMEN [facility] Address: [address] [place] [address] Result Comment: Refe rence range: Follicular: 3.5-12.5 mIU/mL Ovulation: 4.7-21.5 mIU/mL Luteal: 1.7-7.7 mIU/mL Postmenopausal: 25.8-134.8 mIU/mL Performed By: #### 2 842-3 #### [facility] CLIA [id number] [address] [place] [address] [place] HYDROXYPROGESTERONE-17on 17-HYDROXYPROGESTERO NE QUANTITATIVE BY HPLC-MS/MS, SERUM OR PLASMA 101.81 ng/dL Normal <=206.00 [facility] Comment on above: Order Comment: Speci men Type: BLOOD SPECIMENOrdering Facility: [facility] Address: [address] [place] [address] Result Comment: INTE RPRETIVE INFORMATION for 17-Hydroxyprogesterone in females: Follicular 15 to 70 ng/dL Luteal 35 to 290 ng/dL REFERENCE INTERVAL: 17-Hydroxyprogesterone Qnt, HPLC-MS/MS Access complete set of age- and/or gender-specific reference intervals for this test in the [facility] Directory ([facility]). This test was developed and its performance characteristics determined by [employer]. It has not been cleared or approved by the US Food and Drug Administration. This test was performed in a CLIA certified laboratory and is intended for clinical purposes. Performed By: [facility] [address] [place] [address] Monotypist: Wilfrido García MD, PhD CLIA Number: [id number] Performed By: #### H PROG ####[facility] [id number] [place] [address] HbA1c (Bld)on 11-20-2024 Average glucose Estimated from glycated hemoglobin (Bld) [Mass/Vol] 108 mg/dL Normal [facility] Comment on above: Order Comment: Speci men Type: BLOOD SPECIMENOrdering Facility: [facility] Address: [address] [place] [address] Result Comment: eAG: (Estimated average glucose) is a calculated value from HgbA1c and is inbound sales representative of the average blood glucose level in the last 2-3 month period. Performed By: #### 5 5454-3 ####[facility] [id number] [place] [address] [place] HbA1c (Bld) [Mass fraction] 5.4 % Normal 4.3-5.6 [facility] Comment on above: Order Comment: Mikeli men Type: BLOOD SPECIMENOrdering Facility: [facility] Address: [address] [place] [address] Result Comment: Amer ican Diabetes Association guidelines indicate that patients with HgbA1c in the range 5.7-6.4% are at increased risk for development of diabetes, and intervention by lifestyle modification may be beneficial. HgbA1c greater or equal to 6.5% is considered diagnostic of diabetes. Performed By: #### 5 5454-3 ####[facility] [id number] [place] [address] [place] LH SerPl-aCncon 11-20-2024 Lutropin Qn 7.4 m[IU]/mL Normal See comment [facility] Comment on above: Order Comment: Fredy mancuso Type: BLOOD SPECIMEN [facility] Address: [address] [place] [address] Result Comment: Refe rence range: Follicular: 2.4-12.6 mIU/mL Midcycle: 14.0-95.6 mIU/mL Luteal: 1.0-11.4 mIU/mL Post Mellissa: 7.7-58.5 mIU/mL Performed By: #### 2 842-3 #### [facility] CLIA [id number] [address] [place] [address] [place] Prolactin SerPl-mCncon 11-20 Prolactin [Mass/Vol] 10.4 ng/mL Normal 4.4-33.8 [facility] Comment on above: Order Comment: Fredy men Type: BLOOD SPECIMEN [facility] Address: [address] [place] [address] Result Comment: Prol actin test is performed using the [employer] Electrochemiluminescence Immunoassay method. Results obtained with different methods or kits cannot be used interchangeably. Performed By: #### 2 842-3 #### [facility] CLIA [id number] [address] [place] [address] [id number] [address] [place] TESTOSTERONE, FREE AND TOTAL , BY EQUILIBRIUM ULTRAFILTRATION MASS SPECTROMETRYon 11-20-2024 Testosterone [Mass/Vol] 16.2 ng/dL Normal 10.0-55.0 [facility] Comment on above: Order Comment: Speci men Type: BLOOD SPECIMENOrdering Facility: [facility] Address: [address] [place] [address] Performed By: #### T FTEST ####[facility] [id number] [place] [address] Testosterone Free [Mass/Vol] 0.50 ng/dL Normal 0.10-0.85 [facility] Comment on above: Order Comment: Speci men Type: BLOOD SPECIMENOrdering Facility: [facility] Address: [address] [place] [address] Performed By: #### T FTEST ####SEQUNetworkingPhoenix.[facility] LABCLIA [id number] [place] [address] Testosterone Free/Testosterone.to hermelindo [Mass fraction] 3.10 % High 0.50-2.80 [facility] Comment on above: Order Comment: Speci men Type: BLOOD SPECIMENOrdering Facility: [facility] Address: [address] [place] [address] Performed By: #### T FTEST ####[facility] [id number] [place] [address] Thyrotropinon 10-23-2024 TSH Qn 1.17 m[IU]/L Normal 0.44-3.98 [facility] Comment on above: Order Comment: TSH t esting is performed using different testing methodology at [facility] than at other [facility]. Direct result comparisons should only be made within the same method. Performed By: #### 3 016-3 #### JOHN Longo ([id number]) [facility] ([facility]) [address] [place] [address] C reactive proteinon 024 CRP [Mass/Vol] 1.72 mg/dL High <1.00 [facility] Comment on above: Performed By: #### 1 988-5 #### FRANKY SIBLEY ([id number]) [facility] ([facility]) [address] [place] [address] CBC W Auto Differential pane l (Bld)on 03-11-2024 Basophils (Bld) [#/Vol] 0.09 x10*3/uL Normal 0.00-0.10 [facility] Comment on above: Performed By: #### 5 7021-8 #### FRANKY SIBLEY ([id number]) [facility] ([facility]) [address] [place] [address] Basophils/100 WBC (Bld) 1.0 % Normal 0.0-2.0 [facility] Comment on above: Performed By: #### 5 7021-8 #### FRANKY SIBLEY ([id number]) [facility] ([facility]) [address] [place] [address] Eosinophils (Bld) [#/Vol] 0.22 x10*3/uL Normal 0.00-0.70 [facility] Comment on above: Performed By: #### 5 7021-8 #### FRANKY SIBLEY ([id number]) [facility] ([facility]) [address] [place] [address] Eosinophils/100 WBC (Bld) 2.3 % Normal 0.0-6.0 [facility] Comment on above: Performed By: #### 5 7021-8 #### FRANKY SIBLEY ([id number]) [facility] ([facility]) [address] [place] [address] Erythrocyte distribution width (RBC) [Ratio] 12.7 % Normal 11.5-14.5 [facility] Comment on above: Performed By: #### 5 7021-8 #### FRANKY SIBLEY ([id number]) [facility] ([facility]) [address] [place] [address] Hematocrit (Bld) [Volume fraction] 38.5 % Normal 36.0-46.0 [facility] Comment on above: Performed By: #### 5 7021-8 #### FRANKY SIBLEY ([id number]) [facility] ([facility]) [address] [place] [address] Hemoglobin (Bld) [Mass/Vol] 12.0 g/dL Normal 12.0-16.0 [facility] Comment on above: Performed By: #### 5 7021-8 #### FRANKY SIBLEY ([id number]) [facility] ([facility]) [address] [place] [address] Immature granulocytes (Bld) [#/Vol] 0.01 x10*3/uL Normal 0.00-0.70 [facility] Comment on above: Performed By: #### 5 7021-8 #### FRANKY SIBLEY ([id number]) [facility] ([facility]) [address] [place] [address] Immature granulocytes/100 WBC (Bld) 0.1 % Normal 0.0-0.9 [facility] Comment on above: Result Comment: Sylwia ture Granulocyte Count (IG) includes promyelocytes, myelocytes and metamyelocytes but does not include bands. Percent differential counts (%) should be interpreted in the context of the absolute cell counts (cells/UL). Performed By: #### 5 7021-8 #### FRANKY SIBLEY ([id number]) [facility] ([facility]) [address] [place] [address] Lymphocytes (Bld) [#/Vol] 2.62 x10*3/uL Normal 1.20-4.80 [facility] Comment on above: Performed By: #### 5 7021-8 #### FRANKY SIBLEY ([id number]) [facility] ([facility]) [address] [place] [address] Lymphocytes/100 WBC (Bld) 28.0 % Normal 13.0-44.0 [facility] Comment on above: Performed By: #### 5 7021-8 #### FRANKY SIBLEY ([id number]) [facility] ([facility]) [address] [place] [address] MCH (RBC) [Entitic mass] 29.1 pg Normal 26.0-34.0 [facility] Comment on above: Performed By: #### 5 7021-8 #### FRANKY SIBLEY ([id number]) [facility] ([facility]) [address] [place] [address] MCHC (RBC) [Mass/Vol] 31.2 g/dL Low 32.0-36.0 [facility] Comment on above: Performed By: #### 5 7021-8 #### FRANKY SIBLEY ([id number]) [facility] [facility] ([facility]) [address] [place] [address] 68011 MCV (RBC) [Entitic vol] 93 fL Normal 80-100 [facility] Comment on above: Performed By: #### 5 7021-8 #### FRANKY SIBLEY ([id number]) [facility] ([facility]) [address] [place] [address] 43843 Monocytes (Bld) [#/Vol] 0.73 x10*3/uL Normal 0.10-1.00 [facility] Comment on above: Performed By: #### 5 7021-8 #### FRANKY SIBLEY ([id number]) [facility] ([facility]) [address] [place] [address] 55907 Monocytes/100 WBC (Bld) 7.8 % Normal 2.0-10.0 [facility] Comment on above: Performed By: #### 5 7021-8 #### FRANKY SIBLEY ([id number]) [facility] ([facility]) [address] [place] [address] 86875 Neutrophils (Bld) [#/Vol] 5.70 x10*3/uL Normal 1.20-7.70 [facility] Comment on above: Result Comment: Perc ent differential counts (%) should be interpreted in the context of the absolute cell counts (cells/uL). Performed By: #### 5 7021-8 #### FRANKY SIBLEY ([id number]) [facility] ([facility]) [address] [place] [address] 98084 Neutrophils/100 WBC (Bld) 60.8 % Normal 40.0-80.0 [facility] Comment on above: Performed By: #### 5 7021-8 #### FRANKY SIBLEY ([id number]) [facility] ([facility]) [address] [place] [address] 09198 Nucleated RBC/100 WBC (Bld) [Ratio] 0.0 /100 WBCs Normal 0.0-0.0 [facility] Comment on above: Performed By: #### 5 7021-8 #### FRANKY SIBLEY ([id number]) [facility] ([facility]) [address] [place] [address] 23744 Platelets (Bld) [#/Vol] 393 x10*3/uL Normal 150-450 [facility] Comment on above: Performed By: #### 5 7021-8 #### FRANKY SIBLEY ([id number]) [facility] ([facility]) [address] [place] [address] 62955 RBC (Bld) [#/Vol] 4.12 x10*6/uL Normal 4.00-5.20 [facility] Comment on above: Performed By: #### 5 7021-8 #### FRANKY SIBLEY ([id number]) [facility] ([facility]) [address] [place] [address] 29640 WBC (Bld) [#/Vol] 9.4 x10*3/uL Normal 4.4-11.3 [facility] Comment on above: Performed By: #### 5 7021-8 #### FRANKY SIBLEY ([id number]) [facility] ([facility]) [address] [place] [address] 50534 Comprehensive metabolic 2000 panelon 03-11-2024 Albumin BCP dye [Mass/Vol] 4.1 g/dL Normal 3.4-5.0 [facility] Comment on above: Performed By: #### 2 4323-8 #### FRANKY SIBLEY ([id number]) [facility] ([facility]) [address] [place] [address] ALP [Catalytic activity/Vol] 60 U/L Normal 33-110 [facility] Comment on above: Performed By: #### 2 432-8 #### FRANKY SIBLEY ([id number]) [facility] ([facility]) [address] [place] [address] ALT With P-5'-P [Catalytic activity/Vol] 10 U/L Normal 7-45 [facility] Comment on above: Result Comment: Tori ents treated with Sulfasalazine may generate falsely decreased results for ALT. Performed By: #### 2 4323-8 #### FRANKY SIBLEY ([id number]) [facility] ([facility]) [address] [place] [address] 39344 Anion gap [Moles/Vol] 12 mmol/L Normal 10-20 [facility] Comment on above: Performed By: #### 2 4322-8 #### FRANKY SIBLEY ([id number]) [facility] ([facility]) [address] [place] [address] 34256 AST With P-5'-P [Catalytic activity/Vol] 14 U/L Normal 9-39 [facility] Comment on above: Performed By: #### 2 432-8 #### FRANKY SIBLEY ([id number]) [facility] ([facility]) [address] [place] [address] 40039 Bilirubin [Mass/Vol] 0.3 mg/dL Normal 0.0-1.2 [facility] Comment on above: Performed By: #### 2 4323-8 #### FRANKY SIBLEY ([id number]) [facility] ([facility]) [address] [place] [address] 57575 Calcium [Mass/Vol] 9.2 mg/dL Normal 8.6-10.3 [facility] Comment on above: Performed By: #### 2 4323-8 #### FRANKY SIBLEY ([id number]) [facility] ([facility]) [facility] [place] [address] Chloride [Moles/Vol] 110 mmol/L High 98-107 [facility] Comment on above: Performed By: #### 2 4323-8 #### FRANKY SIBLEY ([id number]) [facility] ([facility]) [address] [place] [address] 21277 CO2 [Moles/Vol] 20 mmol/L Low 21-32 [facility] Comment on above: Performed By: #### 2 4323-8 #### FRANKY SIBLEY ([id number]) [facility] ([facility]) [address] [place] [address] 28560 Creatinine [Mass/Vol] 0.93 mg/dL Normal 0.50-1.05 [facility] Comment on above: Performed By: #### 2 4322-8 #### FRANKY SIBLEY ([id number]) [facility] ([facility]) [address] [place] [address] 17841 Glomerular filtration rate/1.73 sq M.predicted 86 mL/min/1.73m*2 Normal >60 [facility] Comment on above: Result Comment: Calc ulations of estimated GFR are performed using the 2020 CKD-EPI Study Refit equation without the race variable for the IDMS-Traceable creatinine methods. https://jasn.asnjournals.org/content//ASN.3332528 988 Performed By: #### 2 432-8 #### FRANKY SIBLEY ([id number]) [facility] ([facility]) [address] [place] [address] 90725 Glucose [Mass/Vol] 102 mg/dL High 74-99 [facility] Comment on above: Performed By: #### 2 432-8 #### FRANKY SIBLEY ([id number]) [facility] ([facility]) [address] [place] [address] 05300 Potassium [Moles/Vol] 4.2 mmol/L Normal 3.5-5.3 [facility] Comment on above: Performed By: #### 2 432-8 #### FRANKY SIBLEY ([id number]) [facility] ([facility]) [address] [place] [address] 44164 Protein [Mass/Vol] 6.8 g/dL Normal 6.4-8.2 [facility] Comment on above: Performed By: #### 2 4323-8 #### FRANKY SIBLEY ([id number]) [facility] ([facility]) [address] [place] [address] 01752 Sodium [Moles/Vol] 138 mmol/L Normal 136-145 [facility] Comment on above: Performed By: #### 2 4323-8 #### FRANKY SIBLEY ([id number]) [facility] ([facility]) [address] [place] [address] 75273 Urea nitrogen [Mass/Vol] 15 mg/dL Normal 6-23 [facility] Comment on above: Performed By: #### 2 4323-8 #### FRANKY SIBLEY ([id number]) [facility] ([facility]) [address] [place] [address] 51387 Cyclic citrullinated peptide Ab.IgGon 03-11-2024 Cyclic citrullinated peptide IgG Qn <1 Normal <3 [facility] Comment on above: Order Comment: THE T EST FOR ANTIBODIES SPECIFIC FOR CYCLIC CITRULLINATED PEPTIDE (CCP) HAS SHOWN TO BE VALUABLE IN THE DIAGNOSIS OF RHEUMATOID ARTHRITIS. THE DIAGNOSTIC VALUE OF ANTIBODIES TO CCP IN JUVENILE RHEUMATOID ARTHRITIS PATIENTS HAS NOT BEEN DETERMINED. ANTIBODIES TO CENTROMERE OR SS-A AND MYELOMA IGG MAY BE REACTIVE IN THIS ASSAY. Result Comment: NEGA TIVE < 3 U/ML POSITIVE >=3 U/ML Performed By: #### 3 3935-8 #### JOHN Longo ([id number]) [facility] ([facility]) [id number] [place] [address] 68721 ESR Westergren method (Bld) [Velocity]on 03-11-2024 ESR (Bld) [Velocity] 29 mm/h High 0-20 [facility] Comment on above: Performed By: #### 4 537-7 #### FRANKY SIBLEY ([id number]) [facility] ([facility]) [address] [place] [address] 16910 Nuclear Abon 03-11-2024 Nuclear Ab Hep2 substrate Ql (S) Negative Normal Negative [facility] Comment on above: Result Comment: The Antinuclear Antibody (AMIE) test was performed using indirect immunofluorescence assay with HEp-2 cells slide. Performed By: #### 5 9069-5 #### JOHN Longo ([id number]) [facility] ([facility]) [address] [place], [place] [address] Rheumatoid factoron 03-11-20 24 Rheumatoid factor Nephelometry Qn (S) <10 Normal 0-15 [facility] Comment on above: Performed By: #### 1 5205-8 #### JOHN Longo ([id number]) [facility] ([facility]) [id number] [place] [address] 99489 HCG ( test) IA.rapi d Ql (U)Ordered By: Suly Stephens on 09-25-2023 HCG ( test) Ql (U) Negative NEGATIVE [facility] Interpretation and review of laboratory results Normal [facility] US Abdomenon 08-10-2023 1. Limited, but meg sly unremarkable ultrasound of the abdomen. MACRO: None Signed by: Maninder Mercado 08/10/2023 7:27 AM Dictation workstation: [id number] [facility] Interpreted By: Maninder Hernandes, STUDY: US ABDOMEN COMPLETE; 08/09/2023 8:14 am INDICATION: Signs/Symptoms:pain. COMPARISON: 10/18/2022 ACCESSION NUMBER(S): [id number] ORDERING CLINICIAN: GUS BRADLEY TECHNIQUE: Multiple images of the abdomen were obtained. The exam was somewhat limited due to the patient's body habitus and overlying bowel gas. FINDINGS: LIVER: The liver measures 17.2 cm and is grossly unremarkable and free of any focal lesions. GALLBLADDER: The gallbladder is nondistended, and demonstrates no evidence of gallstones, wall thickening or surrounding fluid. Sonographic Guaman's sign is negative. BILE DUCTS: No evidence of intra or extrahepatic biliary dilatation is identified; the common bile duct measures 3 mm. PANCREAS: The visualized pancreas is unremarkable in appearance. KIDNEYS: The right kidney measures 10.4 cm in length. The left kidney measures 10.9 cm in length. The renal cortical echogenicity and thickness are within normal limits bilaterally.No hydronephrosis or renal calculi are seen. SPLEEN: The spleen measures 9.7 cm and is grossly unremarkable. PERITONEUM: There is no free or loculated fluid seen in the abdomen. ABDOMINAL AORTA AND IVC: The visualized portions of the aorta and IVC are unremarkable. [facility] Maninder Mercado MD - 08/10/2023 Interpreted By: Maninder Mercado, STUDY: US ABDOMEN COMPLETE; 08/09/2023 8:14 am INDICATION: Signs/Symptoms:pain. COMPARISON: 10/18/2022 ACCESSION NUMBER(S): [id number] ORDERING CLINICIAN: UGS BRADLEY TECHNIQUE: Multiple images of the abdomen were obtained. The exam was somewhat limited due to the patient's body habitus and overlying bowel gas. FINDINGS: LIVER: The liver measures 17.2 cm and is grossly unremarkable and free of any focal lesions. GALLBLADDER: The gallbladder is nondistended, and demonstrates no evidence of gallstones, wall thickening or surrounding fluid. Sonographic Guaman's sign is negative. BILE DUCTS: No evidence of intra or extrahepatic biliary dilatation is identified; the common bile duct measures 3 mm. PANCREAS: The visualized pancreas is unremarkable in appearance. KIDNEYS: The right kidney measures 10.4 cm in length. The left kidney measures 10.9 cm in length. The renal cortical echogenicity and thickness are within normal limits bilaterally.No hydronephrosis or renal calculi are seen. SPLEEN: The spleen measures 9.7 cm and is grossly unremarkable. PERITONEUM: There is no free or loculated fluid seen in the abdomen. ABDOMINAL AORTA AND IVC: The visualized portions of the aorta and IVC are unremarkable. IMPRESSION: 1. Limited, but grossly unremarkable ultrasound of the abdomen. MACRO: None Signed by: Maninder Mercado 08/10/2023 7:27 AM Dictation workstation: [id number] [facility] Work Phone: US AbdomenOrdered By: Maninder Renae on 08-10-2023 [facility] Work Phone: US Abdomenon 08-09-2023 Radiology Study observation (narrative) [facility] Work Phone: NM Gallbladder Views W emily cystokinin and W radionuclide Louis 08-02-2023 1. This study demonstrates patency of cystic duct and common bile duct, without evidence of acute cholecystitis and chronic cholecystitis. 2. Normal gallbladder ejection fraction, estimated at 83% (normal above 38%). I personally reviewed the images/study and I agree with the resident, Madison Sanders MD, findings as stated. This study was interpreted at [place], [place]. MACRO: None Signed by: Myriam Montoya 08/02/2023 4:33 PM Dictation workstation: [id number] [facility] Interpreted By: Myriam Montoya and Ravi Shweta STUDY: NM HEPATOBILIARY W CHOLECYSTOKININ; 08/02/2023 11:09 am INDICATION: Signs/Symptoms:ruq pain. COMPARISON: Hepatobiliary scan 10/25/2022, gallbladder ultrasound on 09/28 ACCESSION NUMBER(S): [id number] ORDERING CLINICIAN: EVELYN BUSCH TECHNIQUE: DIVISION OF NUCLEAR MEDICINE HEPATOBILIARY SCAN (HIDA), QUANTITATIVE The patient received an intravenous dose of 6 mCi of Tc-99m mebrofenin (Choletec). Sequential images of the upper abdomen were then acquired over the next 60 minutes. An intravenous infusion of the cholecystokinin (CCK) analogue, Sincalide (1.9 mcg), was then administered followed by an additional period of imaging. Computer quantification of gallbladder emptying was also performed. FINDINGS: There is prompt accumulation of activity within the liver and normal subsequent excretion via the biliary ductal system into the small bowel. The gallbladder first visualizes at about 10 minutes after radiopharmaceutical injection and progressively fills. After Sincalide administration, there is prompt contraction of the gallbladder with further anterograde transit of activity into the small bowel. The gallbladder ejection fraction is calculated to be 83 % (normal above 38%). MM[facility] Myriam Montoya MD - 08/02/2023 Interpreted By: Myriam Montoya and Ravi Shweta STUDY: NM HEPATOBILIARY W CHOLECYSTOKININ; 08/02/2023 11:09 am INDICATION: Signs/Symptoms:ruq pain. COMPARISON: Hepatobiliary scan 10/25/2022, gallbladder ultrasound on 09/28 ACCESSION NUMBER(S): [id number] ORDERING CLINICIAN: EVELYN BUSCH TECHNIQUE: DIVISION OF NUCLEAR MEDICINE HEPATOBILIARY SCAN (HIDA), QUANTITATIVE The patient received an intravenous dose of 6 mCi of Tc-99m mebrofenin (Choletec). Sequential images of the upper abdomen were then acquired over the next 60 minutes. An intravenous infusion of the cholecystokinin (CCK) analogue, Sincalide (1.9 mcg), was then administered followed by an additional period of imaging. Computer quantification of gallbladder emptying was also performed. FINDINGS: There is prompt accumulation of activity within the liver and normal subsequent excretion via the biliary ductal system into the small bowel. The gallbladder first visualizes at about 10 minutes after radiopharmaceutical injection and progressively fills. After Sincalide administration, there is prompt contraction of the gallbladder with further anterograde transit of activity into the small bowel. The gallbladder ejection fraction is calculated to be 83 % (normal above 38%). IMPRESSION: 1. This study demonstrates patency of cystic duct and common bile duct, without evidence of acute cholecystitis and chronic cholecystitis. 2. Normal gallbladder ejection fraction, estimated at 83% (normal above 38%). I personally reviewed the images/study and I agree with the resident, Madison Sanders MD, findings as stated. This study was interpreted at [place], [place]. MACRO: None Signed by: Myriam Montoya 08/02/2023 4:33 PM Dictation workstation: [id number] [facility] Work Phone: Radiology Study observation (narrative) [facility] Work Phone: NM Gallbladder Views W emily cystokinin and W radionuclide IVOrdered By: Myriam Montoya on 08-02-2023 [facility] Work Phone: COVID Quick Testingon 2022 Result Negative [facility] Other Quick Strepon 07-06-2023 S. pyogenes Org specific cx Ql (Throat) Positive [facility] Other Quick Strep [facility] Other Office Visit (Neuro-General) on 07-05-2023 Follow-up visit Patient Discussion/Summary Discussed role of medicine, importance of taking medications, potential risks, benefits, and precautions to be taken. Reviewed sleep hygiene and dietary modifications. Follow-up in 6 months. Diagnoses/Problems Assessed POTS (postural orthostatic tachycardia syndrome) (427.89) (G90.A) Orders Chronic migraine with aura Continue: Qulipta 60 MG Oral Tablet; one tablet once daily Continue: Trudhesa 0.725 MG/ACT Nasal Aerosol Solution; USE 1 SPRAY IN EACH NOSTRIL NEEDED AT ONSET OF HEADACHE. MAY REPEAT IN 1 HOUR IF NEEDED. MAXIMUM 2 DOSES PER DAY OR 3 DOSES WITHIN 7 DAYS. PRIME WITH 4 PUMPS PRIOR TO EACH USE Contraception management Continue: Lo Loestrin Fe 1 MG-10 MCG / 10 MCG Oral Tablet; TAKE 1 TABLET DAILY DIRECTED GERD (gastroesophageal reflux disease) Continue: Omeprazole 40 MG Oral Capsule Delayed Release; TAKE 1 CAPSULE TWICE DAILY Headache, Migraine Continue: Zonisamide 100 MG Oral Capsule; TAKE 3 CAPSULES AT BEDTIME Migraine Continue: Gabapentin 300 MG Oral Capsule; Take 1 capsule twice daily Nausea and/or vomiting Continue: Ondansetron HCl - 4 MG Oral Tablet; TAKE 1 TABLET Every 6 hours PRN nausea Near syncope, POTS (postural orthostatic tachycardia syndrome) Continue: Propranolol HCl - 10 MG Oral Tablet; Take 10mg PO QHS POTS (postural orthostatic tachycardia syndrome) Stop: Fludrocortisone Acetate 0.1 MG Oral Tablet Start: Midodrine HCl - 2.5 MG Oral Tablet; TAKE 1 TABLET BY MOUTH EVERY MORNING FOR 1 WEEK, THEN TWICE DAILY Seasonal allergies Continue: Montelukast Sodium 10 MG Oral Tablet; TAKE 1 TABLET IN THE EVENING Unlinked Continue: Tums CHEW Continue: ZyrTEC Allergy 10 MG Oral Capsule; take as needed Chief Complaint POTS Neurologic Evaluation. POTS Adult Risk Screening Initial Fall Risk Screening: JENNIFER has not fallen in the last 6 months. Tobacco Screening: JENNIFER does not use tobacco. Depression/Suicide Screening: During the past 2 weeks, the patient has not felt down, depressed or hopeless. During the past 2 weeks, the patient has not felt little interest or pleasure in doing things. History of Present Illness Patient being assessed today for follow-up of POTS. She reports that her symptoms of been well manageable on the fludrocortisone with propranolol as needed before aerobic activities. She is reporting that she has had significant weight gain and believes it is due to the fludrocortisone. We will titrate down to discontinue the fludrocortisone and start her on midodrine 2.5 mg titrating up to twice daily. Patient to notify office the end of July to update on efficacy. She will be switching providers to here for her migraine management. After we get the midodrine adjusted we will start to titrate migraine medications down to discontinue as well. Discussed role of medicine, per HPI importance of taking medications, potential risks, benefits, and precautions to be taken. Reviewed sleep hygiene and dietary modifications. Follow-up in 6 months. This note was created with voice recognition software and was not corrected for typographical or grammatical errors Review of Systems Per HPI Active Problems Problems Abdominal bloating (787.3) (R14.0) Atypical chest pain (786.59) (R07.89) Bilateral occipital neuralgia (723.8) (M54.81) Bronchitis (490) (J40) Bruising (924.9) (T14.8XXA) Cervical dystonia (333.83) (G24.3) Cervical pain (723.1) (M54.2) Chest tightness (786.59) (R07.89) Chronic constipation (564.00) (K59.09) Chronic migraine with aura (346.00) (G43.109) Chronic RUQ pain (789.01,338.29) (R10.11,G89.29) Contraception management (V25.9) (Z30.9) Edema of left lower extremity (782.3) (R60.0) Encounter for immunization (V03.89) (Z23) Encounter for routine gynecological examination (V72.31) (Z01.419) Encounter for surveillance of injectable contraceptive (V25.49) (Z30.42) GERD (gastroesophageal reflux disease) (530.81) (K21.9) Headache (784.0) (R51.9) IBS (irritable bowel syndrome) (564.1) (K58.9) Left knee pain (719.46) (M25.562) Migraine (346.90) (G43.909) Nausea and/or vomiting (787.01) (R11.2) Near syncope (780.2) (R55) Palpitations (785.1) (R00.2) Patellar instability of left knee (718.86) (M25.362) POTS (postural orthostatic tachycardia syndrome) (427.89) (G90.A) PVC's (premature ventricular contractions) (427.69) (I49.3) Right upper quadrant pain (789.01) (R10.11) Screening for cervical cancer (V76.2) (Z12.4) Seasonal allergies (477.9) (J30.2) Stiffness of cervical spine (723.5) (M43.6) Urine test negative (V72.41) (Z32.02) Past Medical History Problems History of Menstruation AGE 12 No pertinent past medical history (V49.89) (Z78.9) History of Pap test, as part of routine gynecological examination (V76.2) (Z01.419) 02/01/23 NORMAL Surgical History Problems History of Colonoscopy History of Knee surgery Left knee 2019 x2 2013 Famil (more content not included)... Normal [employer] Falls Screening (Age 18+)on 06-19-2023 Adult depression screening assessment No [facility] Work Phone: Fall risk assessment a) No falls within the last year [facility] [address] Work Phone: Office Visit (Neuro-General) on 06-19-2023 Follow-up visit Provider Impressions Follow up with [facility]. Patient Discussion/Summary Continue Qulipta for prevention. Continue Trudhesa as needed for rescue. Please call our office at [phone] to leave a message with my escrow secretary if you have any questions or concerns. Please contact me on the Follow My Health application if you cannot reach me through the phone. Return to clinic in one year with new provider or earlier as needed. Diagnoses/Problems Assessed Chronic migraine with aura (346.00) (G43.109) Orders Chronic migraine with aura Renew: Qulipta 60 MG Oral Tablet; one tablet once daily Renew: Trudhesa 0.725 MG/ACT Nasal Aerosol Solution; USE 1 SPRAY IN EACH NOSTRIL NEEDED AT ONSET OF HEADACHE. MAY REPEAT IN 1 HOUR IF NEEDED. MAXIMUM 2 DOSES PER DAY OR 3 DOSES WITHIN 7 DAYS. PRIME WITH 4 PUMPS PRIOR TO EACH USE Chief Complaint Headaches History of Present Illness Patient referred by Evelyn Busch DO with history significant for migraine, POTS, GERD, and IBS here today to discuss headache. Patient notes that the Qulipta has been helpful for prevention, Trudhesa helpful for rescue but it was no longer authorized by her insurance. 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 She notes that she notes that she was diagnosed with she notes that she was diagnosed with POTS, sees Tammy Simeon for management, POTS difficult in last two days but overall improved. Headaches described as occurring in different locations at different times, behind both eyes, sharp pain that shoots across top of head L>R. Headaches associated with nausea (after COVID infection), photophobia/phonophobia. Triggers include smells (like essential oils, perfume, food smells), light, sound, weather changes. She works for home health. Has tried the following medications and treatments: Qulipta very helpful to reduce the frequency and severity of her migraines, now happening about once a month. Trudhesa effective as an abortive for headaches, no side effects, works most of the time. Usually one dose is sufficient, when severe might need a second dose Gabapentin was helpful in the past, but not currently. During increase felt more sluggish and didn?t help with the headaches. Zonisamide helps with sleep, but doesn?t help with the headaches currently Ondansetron for nausea, sometimes helpful. Past Meds: Ibuprofen without benefit for headache. Tylenol not effective. Aimovig not as helpful as the Pbovcipriano was, still getting headaches daily, some decrease in severity of headache. Emgality for 3-4 months, has lessened migraines, but still with daily headaches. Naratriptan 2.5mg no longer effective, was helpful in the past, no side effects. No triptans used in past 24 hours. Avery was on it monthly, previously it was helpful, was able to get down to a few days a month with headache. [place] energized and semi-normal at the time. Prednisone cannot recall effect on headache, no side effects. Sumatriptan shot and nasal spray not helpful. Nurtec made nauseated, not helpful. Ubrelvy helped but knocked her out. Topiramate hallucinating and GI issues, slowed digestion. Amitriptyline did not help, cannot recall side effects Toradol injection alone was insufficient to break cycle of migraines when they started in 2019. Occipital nerve block was helpful, she had her day without any headache issues. Hot shower, ice packs sometimes helps. Draws the shades. PT neck massage, did not seem to help. Did some exercises/stretches to do during headaches that does not seem to improve. Record Review: 08/26/2022 visit note: Patient reports significant improvement in the frequency and severity of her headaches and migraines with physical therapy. The exercises, dry needling, and massage are helpful. Notes that Qulipta has been very helpful for migraine prevention. Trudhesa very helpful for rescue, but she is running into issues getting it authorized. She is sending in an appeal, she will give our office that denial letter. Denies triggers alcohol (does not drink much), stress, sleep changes, certain foods, menses (on depo). Unfortunately, she notes that she developed some sort of a heart issue, 04/2022 experienced the first spell of lightheadedness, dizziness, shaky sensation, heart racing (150 bpm when she measured at a later episode), notes that occurred again the following day. Notes that is typically triggered by standing or walking up steps. She notes that she is constantly feeling fatigued. She has completed an echo/stress test with cardiology which have been normal, and tilt table test has not been completed. 04/18/2022 Visit note: Sees flashes of light before or during headache (new after Covid), double vision during headache. Can get a weird burnt smell beforehand. Sometimes difficult to find words, feel cognitive slowing during headache, but can occur other times. Worsens headache with cough/sneeze/bearing down (more content not included)... Normal [facility] LMPon 01-17-2023 Last menstrual period start date [facility]- [address] Work Phone: Laboratory - Cytologyon 01-05 Cytology report Cyto stain.thin prep Doc (Cvx/Vag) [facility] [address] [place] Work Phone: INTERVENTIONAL RADIOLOGIST - Office Visiton 01-05 INTERVENTIONAL RADIOLOGIST - Office Visit Diagnoses/Problems Health Maintenance/Risks Encounter for preventive health examination (V70.0) (Z00.00) Orders PAP BEEF CATTLE SPECIALIST, Cytology; Status:In Progress - Specimen/Data Collected,Retrospective Authorization; Done: 17Jan2023 Last Menstrual Period (LMP): : BC PAP - Site : CERVICAL Cytology Order : ThinPrep PAP, Screening, HPV Reflex - Include Genotyping Provider Impressions Pap obtained Continue OCP RTO annual exam and PRN Chief Complaint Patient is here for yearly exam. Patient does self breast exams regularly. LMP BC PT HAS NO CONCERNS. History of Present IllnessPt. presents for annual exam Happy with change to OCP, still with some breast tenderness that is tolerable for now, will let me know if wants to consider a different formulation Last pap 2019- due for pap today Denies any c/o or concerns Review of Systems Constitutional: no fever and no chills. Respiratory: no shortness of breath. Active Problems Problems Abdominal bloating (787.3) (R14.0) Atypical chest pain (786.59) (R07.89) Bilateral occipital neuralgia (723.8) (M54.81) Bronchitis (490) (J40) Bruising (924.9) (T14.8XXA) Cervical dystonia (333.83) (G24.3) Cervical pain (723.1) (M54.2) Chest tightness (786.59) (R07.89) Chronic constipation (564.00) (K59.09) Chronic migraine with aura (346.00) (G43.109) Chronic RUQ pain (789.01,338.29) (R10.11,G89.29) Contraception management (V25.9) (Z30.9) Edema of left lower extremity (782.3) (R60.0) Encounter for immunization (V03.89) (Z23) Encounter for surveillance of injectable contraceptive (V25.49) (Z30.42) GERD (gastroesophageal reflux disease) (530.81) (K21.9) Headache (784.0) (R51.9) IBS (irritable bowel syndrome) (564.1) (K58.9) Left knee pain (719.46) (M25.562) Migraine (346.90) (G43.909) Nausea and/or vomiting (787.01) (R11.2) Near syncope (780.2) (R55) Palpitations (785.1) (R00.2) Patellar instability of left knee (718.86) (M25.362) POTS (postural orthostatic tachycardia syndrome) (427.89) (G90.A) PVC's (premature ventricular contractions) (427.69) (I49.3) Right upper quadrant pain (789.01) (R10.11) Seasonal allergies (477.9) (J30.2) Stiffness of cervical spine (723.5) (M43.6) Urine test negative (V72.41) (Z32.02) Past Medical History Problems History of Menstruation AGE 12 No pertinent past medical history (V49.89) (Z78.9) Surgical History Problems History of Colonoscopy History of Knee surgery Left knee 2019 x2 2013 Family History Mother Family history of scleroderma (V19.8) (Z82.69) Father Family history of congestive heart failure (V17.49) (Z82.49) Grandparent Family history of hypertension (V17.49) (Z82.49) Grandmother Family history of myocardial infarction (V17.3) (Z82.49) Maternal Grandmother Family history of Alzheimer's disease (V17.2) (Z82.0) Paternal Grandmother Family history of kidney disease (V18.69) (Z84.1) Family history of lung cancer (V16.1) (Z80.1) Family history of malignant neoplasm of brain (V16.8) (Z80.8) Family history of scleroderma (V19.8) (Z82.69) Family history of squamous cell carcinoma (V16.9) (Z80.9) Family history of Metastatic cancer Grandfather Family history of diabetes mellitus (V18.0) (Z83.3) Paternal Grandfather Family history of esophageal carcinoma (V16.0) (Z80.0) Aunt Family history of Factor 5 Leiden mutation, heterozygous Maternal Aunt Family history of cholangiocarcinoma (V16.0) (Z80.0) Social History Problems Does not use illicit drugs (V49.89) (Z78.9) Never a smoker Occasional alcohol use Occasional caffeine consumption Rarely consumes alcohol (V49.89) (Z78.9) Sexually active Allergies Medication Penicillins Recorded By: Jo Ann Stover; 08/23/2020 9:27:18 AM Current Meds Medication NameInstruction Fludrocortisone Acetate 0.1 MG Oral TabletTake 0.1mg PO QAM x 1wk then increase to 0.1mg PO BID Gabapentin 300 MG Oral CapsuleTake 1 capsule twice daily Lo Loestrin Fe 1 MG-10 MCG / 10 MCG Oral TabletTAKE 1 TABLET DAILY DIRECTED. Montelukast Sodium 10 MG Oral TabletTAKE 1 TABLET IN THE EVENING. Omeprazole 40 MG Oral Capsule Delayed ReleaseTAKE 1 CAPSULE TWICE DAILY. Ondansetron HCl - 4 MG Oral TabletTAKE 1 TABLET Every 6 hours PRN nausea Propranolol HCl - 10 MG Oral TabletTake 10mg PO QHS Qulipta 60 MG Oral Tabletone tablet once daily Trudhesa 0.725 MG/ACT Nasal Aerosol SolutionUSE 1 SPRAY IN EACH NOSTRIL NEEDED AT ONSET OF HEADACHE. MAY REPEAT IN 1 HOUR IF NEEDED. MAXIMUM 2 DOSES PER DAY OR 3 DOSES WITHIN 7 DAYS. PRIME WITH 4 PUMPS PRIOR TO EACH USE. Tums CHEW Zonisamide 100 MG Oral CapsuleTAKE 3 CAPSULES AT BEDTIME. ZyrTEC Allergy 10 MG Oral Capsuletake as needed Vitals Vital Signs Recorded: [id number] 08:58AM [id number] Rzcephmij13 Height5 ft 4 in Esqkti151 lb 5.71 oz BMI Arndyzgcdm97.25 kg/m2 BSA Calculated1.98 LMPBC Physical Exam Constitutional: Alert and in no acute distress. (more content not included)... Normal Touchworks CBCon 01-05-2023 Erythrocyte distribution width (RBC) [Ratio] 13.2 % Normal 11.5 - 14.5 [facility] Comment on above: Performed By: #### C BC #### [address] [address] Hematocrit (Bld) [Volume fraction] 39.8 % Normal 36.0 - 46.0 [facility] Comment on above: Performed By: #### C BC #### [address] [address] Hemoglobin (Bld) [Mass/Vol] 12.4 g/dL Normal 12.0 - 16.0 [facility] Comment on above: Performed By: #### C BC #### [address] [address] MCHC (RBC) [Mass/Vol] 31.2 g/dL Low 32.0 - 36.0 [facility] Comment on above: Performed By: #### C BC #### [address] [address] MCV (RBC) [Entitic vol] 95 fL Normal 80 - 100 [facility] Comment on above: Performed By: #### C BC #### [address] [address] Platelets (Bld) [#/Vol] 387 10*3/uL Normal 150 - 450 [facility] Comment on above: Performed By: #### C BC #### [address] [address] RBC 4.19 x10E12/L Normal 4.00 - 5.20 [facility] Comment on above: Performed By: #### C BC #### [address] [address] WBC (Bld) [#/Vol] 8.1 10*3/uL Normal 4.4 - 11.3 [facility] Comment on above: Performed By: #### C BC #### [address] [address] COMPREHENSIVE PANELon 2022 Albumin [Mass/Vol] 4.5 g/dL Normal 3.4 - 5.0 [facility] Comment on above: Performed By: #### C MP #### [address] [address] ALP [Catalytic activity/Vol] 50 U/L Normal 33 - 110 [facility] Comment on above: Performed By: #### C MP #### [address] [address] ALT [Catalytic activity/Vol] 10 U/L Normal 7 - 45 [facility] Comment on above: Result Comment: Tori ents treated with Sulfasalazine may generate falsely decreased results for ALT. Performed By: #### C MP #### [address] [address] Anion gap [Moles/Vol] 13 mmol/L Normal 10 - 20 [facility] Comment on above: Performed By: #### C MP #### [address] [address] AST [Catalytic activity/Vol] 13 U/L Normal 9 - 39 [facility] Comment on above: Performed By: #### C MP #### [address] [address] Bilirubin [Mass/Vol] 0.4 mg/dL Normal 0.0 - 1.2 [facility] [place] Comment on above: Performed By: #### C MP #### [address] [address] Calcium [Mass/Vol] 9.9 mg/dL Normal 8.6 - 10.3 [facility] Comment on above: Performed By: #### C MP #### [address] [address] Chloride [Moles/Vol] 109 mmol/L High 98 - 107 [facility] [place] Comment on above: Performed By: #### C MP #### [address] [address] Creatinine [Mass/Vol] 0.97 mg/dL Normal 0.50 - 1.05 [facility] Comment on above: Performed By: #### C MP #### [address] [address] GFR/1.73 sq M.predicted among non-blacks MDRD (S/P/Bld) [Vol rate/Area] 82 mL/min/{1.73_m2} Normal >90 [facility] Comment on above: Result Comment: CALC ULATIONS OF ESTIMATED GFR ARE PERFORMED USING THE 2020 CKD-EPI STUDY REFIT EQUATION WITHOUT THE RACE VARIABLE FOR THE IDMS-TRACEABLE CREATININE METHODS. https://jasn.asnjournals.org/content//ASN.6534454 988 Performed By: #### C MP #### [address] [address] Glucose [Mass/Vol] 86 mg/dL Normal 74 - 99 [facility] Comment on above: Performed By: #### C MP #### [address] [address] HCO3 (Bld) [Moles/Vol] 21 mmol/L Normal 21 - 32 [facility] Comment on above: Performed By: #### C MP #### [address] [address] Potassium [Moles/Vol] 3.8 mmol/L Normal 3.5 - 5.3 [facility] Comment on above: Performed By: #### C MP #### [address] [address] Protein [Mass/Vol] 7.7 g/dL Normal 6.4 - 8.2 [facility] Comment on above: Performed By: #### C MP #### [address] [address] Sodium [Moles/Vol] 139 mmol/L Normal 136 - 145 [facility] Comment on above: Performed By: #### C MP #### [address] [address] Urea nitrogen [Mass/Vol] 17 mg/dL Normal 6 - 23 [facility] Comment on above: Performed By: #### C MP #### [address] [address] Laboratory - Chemistry and C hemistry - challengeon 01-05-2023 Albumin BCP dye [Mass/Vol] 4.5 g/dL 3.4 - 5.0 [facility] [place] [address] Work Phone: ALP [Catalytic activity/Vol] 50 U/L 33 - 110 [facility] [address] Work Phone: ALT With P-5'-P [Catalytic activity/Vol] 10 U/L 7 - 45 [facility] [place] [address] Work Phone: Comment on above: Patients treated wit h Sulfasalazine may generate falsely decreased results for ALT. Anion gap [Moles/Vol] 13 mmol/L 10 - 20 [facility] Work Phone: [phone] AST With P-5'-P [Catalytic activity/Vol] 13 U/L 9 - 39 [facility] [address] Work Phone: [phone] Bilirubin [Mass/Vol] 0.4 mg/dL 0.0 - 1.2 [facility]- [place] [facility] Work Phone: [phone] Calcium [Mass/Vol] 9.9 mg/dL 8.6 - 10.3 [facility] Work Phone: [phone] Chloride [Moles/Vol] 109 mmol/L above high threshold 98 - 107 [facility] Work Phone: [phone] CO2 [Moles/Vol] 21 mmol/L 21 - 32 [facility] Work Phone: [phone] Creatinine [Mass/Vol] 0.97 mg/dL See Below [facility] Work Phone: [phone] Comment on above: Reference Range: 0.5 0 - 1.05 Glucose [Mass/Vol] 86 mg/dL 74 - 99 [facility] Work Phone: [phone] Potassium [Moles/Vol] 3.8 mmol/L 3.5 - 5.3 [facility] Work Phone: [phone] Protein [Mass/Vol] 7.7 g/dL 6.4 - 8.2 [facility] Work Phone: [phone] Sodium [Moles/Vol] 139 mmol/L 136 - 145 [facility] Work Phone: [phone] Urea nitrogen [Mass/Vol] 17 mg/dL 6 - 23 [facility] [place] [facility] Work Phone: [phone] Laboratory - Hematology and Cell countson 01-05-2023 Erythrocyte distribution width (RBC) [Ratio] 13.2 % See Below [facility] Work Phone: Comment on above: Reference Range: 11. 5 - 14.5 Hematocrit (Bld) [Volume fraction] 39.8 % See Below [facility] [place] [address] Work Phone: Comment on above: Reference Range: 36. 0 - 46.0 Hemoglobin (Bld) [Mass/Vol] 12.4 g/dL See Below [facility] [address] Work Phone: Comment on above: Reference Range: 12. 0 - 16.0 MCHC (RBC) [Mass/Vol] 31.2 g/dL below low threshold See Below [facility] [place] [address] Work Phone: Comment on above: Reference Range: 32. 0 - 36.0 MCV (RBC) [Entitic vol] 95 fL 80 - 100 [facility] [address] Work Phone: Platelets (Bld) [#/Vol] 387 10*3/uL 150 - 450 [facility] [place] [address] Work Phone: RBC (Bld) [#/Vol] 4.19 {x10E12/L} See Below [facility]- [facility] [address] Work Phone: Comment on above: Reference Range: 4.0 0 - 5.20 WBC (Bld) [#/Vol] 8.1 10*3/uL 4.4 - 11.3 [facility] [place] [facility] [address] Work Phone: No Panel Informationon 01-05 82 {mL/min/1.73m2} >90 [facility] [address] Work Phone: Comment on above: CALCULATIONS OF EVELYN MATED GFR ARE PERFORMED USING THE 2020 CKD-EPI STUDY REFIT EQUATION WITHOUT THE RACE VARIABLE FOR THE IDMS-TRACEABLE CREATININE METHODS.https://jasn.asnjournals.org/content//ASN .6964518317 TSHon 01-05-2023 TSH Qn 1.00 m[IU]/L Normal 0.44 - 3.98 [facility] Comment on above: Result Comment: TSH testing is performed using different testing methodology at [facility] than at other [facility]. Direct result comparisons should only be made within the same method. Performed By: #### T SH2 #### [address] [address] TSH - Thyroid Stimulating Ho rmone, Serumon 01-05-2023 TSH Qn 1.00 m[IU]/L See Below [facility] [place] [facility] [address] Work Phone: Comment on above: Reference Range: 0.4 4 - 3.98 TSH testing is performed using different testing methodology at [facility] than at [facility]. Direct result comparisons should only be made within the same method. VITAMIN B12on 01-05-2023 Cobalamin (Vitamin B12) [Mass/Vol] 384 pg/mL Normal 211 - 911 [facility] Comment on above: Performed By: #### V TB12 #### [address] [address] Vitamin B12, Serumon 023 Cobalamin (Vitamin B12) [Mass/Vol] 384 pg/mL 211 - 911 [facility] Work Phone: Office Visit (Neuro-General) on 01-04-2023 Follow-up visit Patient Discussion/Summary Discussed role of medicine, importance of taking medications, potential risks, benefits, and precautions to be taken. Reviewed sleep hygiene and dietary modifications. Patient to notify office in 6 weeks of efficacy. Follow-up in 3 to 6 months. Diagnoses/Problems Assessed POTS (postural orthostatic tachycardia syndrome) (427.89) (G90.A) Near syncope (780.2) (R55) Palpitations (785.1) (R00.2) Orders Palpitations Complete Blood Count; Status:Active; Requested for:04Jan2023; Comprehensive Metabolic Panel; Status:Active; Requested for:04Jan2023; TSH - Thyroid Stimulating Hormone, Serum; Status:Active; Requested for:04Jan2023; Vitamin B12, Serum; Status:Active; Requested for:04Jan2023; POTS (postural orthostatic tachycardia syndrome) Start: Fludrocortisone Acetate 0.1 MG Oral Tablet; Take 0.1mg PO QAM x 1wk then increase to 0.1mg PO BID Chief Complaint fuv POT Neurologic Evaluation. Adult Risk Screening Tobacco Screening: JENNIFER does not use tobacco. History of Present Illness Patient being assessed today for follow-up of POTS. She reports that at least weekly she is having syncopal episodes without loss of consciousness. Reviewed orthostatic diary and it is stable. Her pressure does run in the lower range. Patient is also reporting extreme fatigue. Will start using the propranolol as needed and start her on fludrocortisone daily for 1 week then increase to twice daily based on symptoms. Discussed role of medicine, importance of taking medications, potential risks, benefits, and precautions to be taken. Reviewed sleep hygiene and dietary modifications. Patient to notify office in 4 weeks of efficacy. Follow-up in 3 to 6 months. This note was created with voice recognition software and was not corrected for typographical or grammatical errors Review of Systems Per HPI Active Problems Problems Abdominal bloating (787.3) (R14.0) Atypical chest pain (786.59) (R07.89) Bilateral occipital neuralgia (723.8) (M54.81) Bronchitis (490) (J40) Bruising (924.9) (T14.8XXA) Cervical dystonia (333.83) (G24.3) Cervical pain (723.1) (M54.2) Chest tightness (786.59) (R07.89) Chronic constipation (564.00) (K59.09) Chronic migraine with aura (346.00) (G43.109) Chronic RUQ pain (789.01,338.29) (R10.11,G89.29) Contraception management (V25.9) (Z30.9) Edema of left lower extremity (782.3) (R60.0) Encounter for immunization (V03.89) (Z23) Encounter for surveillance of injectable contraceptive (V25.49) (Z30.42) GERD (gastroesophageal reflux disease) (530.81) (K21.9) Headache (784.0) (R51.9) IBS (irritable bowel syndrome) (564.1) (K58.9) Left knee pain (719.46) (M25.562) Migraine (346.90) (G43.909) Nausea and/or vomiting (787.01) (R11.2) Near syncope (780.2) (R55) Palpitations (785.1) (R00.2) Patellar instability of left knee (718.86) (M25.362) POTS (postural orthostatic tachycardia syndrome) (427.89) (G90.A) PVC's (premature ventricular contractions) (427.69) (I49.3) Right upper quadrant pain (789.01) (R10.11) Seasonal allergies (477.9) (J30.2) Stiffness of cervical spine (723.5) (M43.6) Urine test negative (V72.41) (Z32.02) Past Medical History Problems History of Menstruation AGE 12 No pertinent past medical history (V49.89) (Z78.9) Surgical History Problems History of Colonoscopy History of Knee surgery Left knee 2019 Family History Mother Family history of scleroderma (V19.8) (Z82.69) Father Family history of congestive heart failure (V17.49) (Z82.49) Grandparent Family history of hypertension (V17.49) (Z82.49) Grandmother Family history of myocardial infarction (V17.3) (Z82.49) Maternal Grandmother Family history of Alzheimer's disease (V17.2) (Z82.0) Paternal Grandmother Family history of kidney disease (V18.69) (Z84.1) Family history of lung cancer (V16.1) (Z80.1) Family history of malignant neoplasm of brain (V16.8) (Z80.8) Family history of scleroderma (V19.8) (Z82.69) Family history of squamous cell carcinoma (V16.9) (Z80.9) Family history of Metastatic cancer Grandfather Family history of diabetes mellitus (V18.0) (Z83.3) Paternal Grandfather Family history of esophageal carcinoma (V16.0) (Z80.0) Aunt Family history of Factor 5 Leiden mutation, heterozygous Maternal Aunt Family history of cholangiocarcinoma (V16.0) (Z80.0) Social History Problems Does not use illicit drugs (V49.89) (Z78.9) Never a smoker Occasional alcohol use Occasional caffeine consumption Rarely consumes alcohol (V49.89) (Z78.9) Sexually active Allergies Medication Penicillins Recorded By: Jo Ann Stover; 08/23/2020 9:27:18 AM Current Meds Medication NameInstruction Gabapentin 300 MG Oral CapsuleTake 1 capsule twice daily Lo Loestrin Fe 1 MG-10 MCG / 10 MCG Oral TabletTAKE 1 TABLET DAILY DIRECTED. MedroxyPROGESTERone Acetate 150 MG/ML Intramuscular SuspensionINJECT EVERY (more content not included)... Normal [facility] LMPon 12-06-2022 Last menstrual period start date depo [facility] [facility] [address] Phone: INTERVENTIONAL RADIOLOGIST - Office Visiton INTERVENTIONAL RADIOLOGIST - Office Visit Diagnoses/Problems Assessed Contraception management (V25.9) (Z30.9) Orders Start: Lo Loestrin Fe 1 MG-10 MCG / 10 MCG Oral Tablet; TAKE 1 TABLET DAILY DIRECTED Provider Impressions Rx Loestrin FE (pt. recalls taking OCP with iron) RTO annual exam Disc. preconception consult when ready for this Reviewed s/s and warnings with OCP and migraine and pt. verbalized understanding Chief Complaint PT HERE TODAY WANTING TO SWITCH BC. PT STATES SHE HAS BEEN ON THE DEPO FOR TWO YEARS, AND SHE WOULD LIKE TO GET BACK ON THE PILL. History of Present IllnessPt. presents to discuss change in contraception. Using DMPA x 2+ years and wants to change to OCP due to wanting to conceive in the next year. Hx of migraine. Pt. states she used OCP without any problem in the past and has recently been dx with POTS and was told that could actually be the cause of her headaches, rather than migraine Review of Systems Constitutional: no fever and no chills. Active Problems Problems Abdominal bloating (787.3) (R14.0) Atypical chest pain (786.59) (R07.89) Bilateral occipital neuralgia (723.8) (M54.81) Bronchitis (490) (J40) Bruising (924.9) (T14.8XXA) Cervical dystonia (333.83) (G24.3) Cervical pain (723.1) (M54.2) Chest tightness (786.59) (R07.89) Chronic constipation (564.00) (K59.09) Chronic migraine with aura (346.00) (G43.109) Chronic RUQ pain (789.01,338.29) (R10.11,G89.29) Contraception management (V25.9) (Z30.9) Edema of left lower extremity (782.3) (R60.0) Encounter for immunization (V03.89) (Z23) Encounter for surveillance of injectable contraceptive (V25.49) (Z30.42) GERD (gastroesophageal reflux disease) (530.81) (K21.9) Headache (784.0) (R51.9) IBS (irritable bowel syndrome) (564.1) (K58.9) Left knee pain (719.46) (M25.562) Migraine (346.90) (G43.909) Nausea and/or vomiting (787.01) (R11.2) Near syncope (780.2) (R55) Palpitations (785.1) (R00.2) Patellar instability of left knee (718.86) (M25.362) POTS (postural orthostatic tachycardia syndrome) (427.89) (G90.A) PVC's (premature ventricular contractions) (427.69) (I49.3) Right upper quadrant pain (789.01) (R10.11) Seasonal allergies (477.9) (J30.2) Stiffness of cervical spine (723.5) (M43.6) Urine test negative (V72.41) (Z32.02) Past Medical History Problems History of Menstruation AGE 12 No pertinent past medical history (V49.89) (Z78.9) Surgical History Problems History of Colonoscopy History of Knee surgery Left knee 2019 x2 2013 Family History Mother Family history of scleroderma (V19.8) (Z82.69) Father Family history of congestive heart failure (V17.49) (Z82.49) Grandparent Family history of hypertension (V17.49) (Z82.49) Grandmother Family history of myocardial infarction (V17.3) (Z82.49) Maternal Grandmother Family history of Alzheimer's disease (V17.2) (Z82.0) Paternal Grandmother Family history of kidney disease (V18.69) (Z84.1) Family history of lung cancer (V16.1) (Z80.1) Family history of malignant neoplasm of brain (V16.8) (Z80.8) Family history of scleroderma (V19.8) (Z82.69) Family history of squamous cell carcinoma (V16.9) (Z80.9) Family history of Metastatic cancer Grandfather Family history of diabetes mellitus (V18.0) (Z83.3) Paternal Grandfather Family history of esophageal carcinoma (V16.0) (Z80.0) Aunt Family history of Factor 5 Leiden mutation, heterozygous Maternal Aunt Family history of cholangiocarcinoma (V16.0) (Z80.0) Social History Problems Does not use illicit drugs (V49.89) (Z78.9) Never a smoker Occasional alcohol use Occasional caffeine consumption Rarely consumes alcohol (V49.89) (Z78.9) Sexually active Allergies Medication Penicillins Recorded By: Jo Ann Stover; 08/23/2020 9:27:18 AM Current Meds Medication NameInstruction Gabapentin 300 MG Oral CapsuleTake 1 capsule twice daily MedroxyPROGESTERone Acetate 150 MG/ML Intramuscular SuspensionINJECT EVERY 12 WEEKS DIRECTED Montelukast Sodium 10 MG Oral TabletTAKE 1 TABLET IN THE EVENING. Omeprazole 40 MG Oral Capsule Delayed ReleaseTAKE 1 CAPSULE TWICE DAILY. Ondansetron HCl - 4 MG Oral TabletTAKE 1 TABLET Every 6 hours PRN nausea Propranolol HCl - 10 MG Oral TabletTake 10mg PO QHS Qulipta 60 MG Oral Tabletone tablet once daily Trudhesa 0.725 MG/ACT Nasal Aerosol SolutionUSE 1 SPRAY IN EACH NOSTRIL NEEDED AT ONSET OF HEADACHE. MAY REPEAT IN 1 HOUR IF NEEDED. MAXIMUM 2 DOSES PER DAY OR 3 DOSES WITHIN 7 DAYS. PRIME WITH 4 PUMPS PRIOR TO EACH USE. Tums CHEW Zonisamide 100 MG Oral CapsuleTAKE 3 CAPSULES AT BEDTIME. ZyrTEC Allergy 10 MG Oral Capsuletake as needed Vitals Vital Signs Recorded: 06Dec2022 10:50AM [id number] Vcxtsvlzt58 Height5 ft 4 in Jogxrm017 lb 11.26 oz BMI Qoaicpkbog28.97 kg/m2 BSA Calculated1.97 LMPdepo Physical Exam Constitutional: Alert and in no acute distress. Well developed, well nourished Psychiatric: mally (more content not included)... [facility] on [facility]-2022 Follow-up visit Patient Discussion/Summary Discussed role of medicine, importance of taking medications, potential risks, benefits, and precautions to be taken. Reviewed sleep hygiene and dietary modifications. Follow-up in 4 to 6 weeks. Diagnoses/Problems Assessed POTS (postural orthostatic tachycardia syndrome) (427.89) (G90.A) Palpitations (785.1) (R00.2) Near syncope (780.2) (R55) Orders Near syncope, POTS (postural orthostatic tachycardia syndrome) Start: Propranolol HCl - 10 MG Oral Tablet; Take 10mg PO QHS Chief Complaint POTS Neurologic Evaluation. An interactive audio and video telecommunication system which permits real time communications between the patient (at the originating site) and provider (at the distant site) was utilized to provide this telehealth service. Verbal consent was requested and obtained from JENNIFER HENLEY on this date, 11/19/2022 08:30 AM , for a telehealth visit. History of Present Illness Patient being assessed today for initial evaluation of POTS. Patient reports that in 2018 she had a near syncopal episode went to the ER and was cleared. Shortly after that she started developing migraines that are now controlled. In November 2019 she had another near syncopal episode and went to the emergency room and was cleared. In September 2020 she had COVID. Since April she reports episodes of dizziness, lightheadedness, shaky, diaphoretic, elevated heart rate, shortness of breath, nausea, fatigue. She has had a Holter monitor and followed with cardiology and has been cleared. She had an elevated AMIE and was followed by rheumatology and was cleared. Denies loss of consciousness. She did have autonomic testing completed which was consistent with the diagnosis of POTS. It appears patient becomes significantly tachycardic. Patient to keep an orthostatic diary and discussed the process of doing that. Patient verbalized understanding. We will try her on propranolol 10 mg p.o. nightly. Discussed role of medicine, importance of taking medications, potential risks, benefits, and precautions to be taken. Reviewed sleep hygiene and dietary modifications. Follow-up in 4 to 6 weeks. This note was created with voice recognition software and was not corrected for typographical or grammatical errors Review of Systems Per HPI Active Problems Problems Abdominal bloating (787.3) (R14.0) Atypical chest pain (786.59) (R07.89) Bilateral occipital neuralgia (723.8) (M54.81) Bronchitis (490) (J40) Bruising (924.9) (T14.8XXA) Cervical dystonia (333.83) (G24.3) Cervical pain (723.1) (M54.2) Chest tightness (786.59) (R07.89) Chronic constipation (564.00) (K59.09) Chronic migraine with aura (346.00) (G43.109) Chronic RUQ pain (789.01,338.29) (R10.11,G89.29) Contraception management (V25.9) (Z30.9) Edema of left lower extremity (782.3) (R60.0) Encounter for immunization (V03.89) (Z23) Encounter for surveillance of injectable contraceptive (V25.49) (Z30.42) GERD (gastroesophageal reflux disease) (530.81) (K21.9) Headache (784.0) (R51.9) IBS (irritable bowel syndrome) (564.1) (K58.9) Left knee pain (719.46) (M25.562) Migraine (346.90) (G43.909) Nausea and/or vomiting (787.01) (R11.2) Near syncope (780.2) (R55) Palpitations (785.1) (R00.2) Patellar instability of left knee (718.86) (M25.362) PVC's (premature ventricular contractions) (427.69) (I49.3) Right upper quadrant pain (789.01) (R10.11) Seasonal allergies (477.9) (J30.2) Stiffness of cervical spine (723.5) (M43.6) Urine test negative (V72.41) (Z32.02) Past Medical History Problems History of Menstruation AGE 12 No pertinent past medical history (V49.89) (Z78.9) Surgical History Problems History of Colonoscopy History of Knee surgery Left knee 2019 Family History Mother Family history of scleroderma (V19.8) (Z82.69) Father Family history of congestive heart failure (V17.49) (Z82.49) Grandparent Family history of hypertension (V17.49) (Z82.49) Grandmother Family history of myocardial infarction (V17.3) (Z82.49) Maternal Grandmother Family history of Alzheimer's disease (V17.2) (Z82.0) Paternal Grandmother Family history of kidney disease (V18.69) (Z84.1) Family history of lung cancer (V16.1) (Z80.1) Family history of malignant neoplasm of brain (V16.8) (Z80.8) Family history of scleroderma (V19.8) (Z82.69) Family history of squamous cell carcinoma (V16.9) (Z80.9) Family history of Metastatic cancer Grandfather Family history of diabetes mellitus (V18.0) (Z83.3) Paternal Grandfather Family history of esophageal carcinoma (V16.0) (Z80.0) Aunt Family history of Factor 5 Leiden mutation, heterozygous Maternal Aunt Family history of cholangiocarcinoma (V16.0) (Z80.0) Social History Problems Does not use illicit drugs (V49.89) (Z78.9) Never a smoker Occasional alcohol use Occasional caffeine consumption Rarely consumes alcohol (V49.89) (Z78.9) Sexually active (more content not included)... Normal [facility] BILIARY WITH EF W OR W/O CCK on 10-25-2022 BILIARY WITH EF W OR W/O CCK Patient Name: JENNIFER HENLEY STUDY: BILIARY WITH EF W OR W/O CCK; 10/25/2022 1:22 pm INDICATION: abd pain, n.v R14.0: Abdominal bloating. COMPARISON: None. ACCESSION NUMBER(S): [id number] ORDERING CLINICIAN: EVELYN BUSCH TECHNIQUE: DIVISION OF NUCLEAR MEDICINE HEPATOBILIARY SCAN (HIDA), QUANTITATIVE The patient received an intravenous dose of 5.6 mCi of Tc-99m mebrofenin (Choletec). Sequential images of the upper abdomen were then acquired over the next 60 minutes. An intravenous infusion of the cholecystokinin (CCK) analogue, Sincalide, was then administered followed by an additional period of imaging. Computer quantification of gallbladder emptying was also performed FINDINGS: There is prompt accumulation of activity within the liver and normal subsequent excretion via the biliary ductal system into the small bowel. The gallbladder first visualizes at about 30 minutes after radiopharmaceutical injection and progressively fills. After Sincalide administration, there is contraction of the gallbladder with further anterograde transit of activity into the small bowel. The gallbladder ejection fraction is calculated to be 83 % (normal above 38%). IMPRESSION: 1. Patent cystic and common bile ducts. No evidence of acute cholecystitis. 2. Normal contraction of the gallbladder without evidence of chronic cholecystitis. I personally reviewed the images/study and I agree with the findings as stated. This study was interpreted at [place], [place]. Electronically signed by: SHANTAL SALMERON MD [facility] NM Biliary with EF w/wo CCKo n 10-25-2022 NM Biliary with EF w/wo CCK Normal [facility] Work Phone: Radiologyon 10-18-2022 US Gallbladder Normal [facility] Work Phone: Blood Pressure Cuff Sizeon 0 10-10-2022 Fall risk assessment a) No falls within the last year [facility] Work Phone: Tobacco use status [facility]PHS b) No [facility] Work Phone: Blood Pressure Cuff Size Adult [facility] Work Phone: Office Visit (Internal Medic ine)on 10-10-2022 Follow-up visit Diagnoses/Problems Assessed Chronic RUQ pain (789.01,338.29) (R10.11,G89.29) Bilateral occipital neuralgia (723.8) (M54.81) Migraine (346.90) (G43.909) Orders Chronic RUQ pain Ultrasound Gallbladder; Status:Active; Requested for:18Oct2022; Perform: Radiology Services Imaging;Ordered; For:Chronic RUQ pain; Ordered By:Evelyn Busch; Radiologist to Determine Optimal Study : Y What are the patient's signs and symptoms? : ruq pain Nausea and/or vomiting Renew: Ondansetron HCl - 4 MG Oral Tablet; TAKE 1 TABLET Every 6 hours PRN nausea Rx By: Evelyn Busch; Dispense: 30 Days ; #:120 Tablet; Refill: 5;For: Nausea and/or vomiting; LAXMI = N; Verified Transmission to [facility]; Last Updated By: Slava Colindres; 10/10/2022 10:50:44 AM Provider Impressions 1. Abd pain - initially RLQ, now more RUQ, dull achey worse after eating and becomes sharp, +nausea, no vomiting, bowels normal for her IBS, reviewed bloodwork and CT from ED, showed small 2 mm left sided kidney stone, no diverticulitis, appendicitis or ovarian cysts noted - will check gallbladder us, if normal will order HIDA 2. Low K - was given replacement in the Ed 3. Migraines - following with neurology - on Qlipta and trudhesa prn - will work on weaning off gabapentin and zonisamide 4. Is scheduled for tilt table for concern for pots Chief Complaint 27 y/o female presents for ED f/u/ low potassium Medications proposed Pt was in the end at the end of September for abdominal pain Pt was given a week supply of potassium until she could get into her PCP Pt is still having sharp pain in her RT lower quadrant along with bloating/nausea History of Present IllnessPatient is here today for Ed follow up Migraines - improved, following with Neurology, on Qlipta now, having only a few migraines since and having sig less daily headaches. Next appt they are going to work on getting off the gabapentin and zonisamide. Using Trudhesa prn for migraines. Pt reports that on Mauricio even she was sitting playing cards and she had sudden sharp severe Pain in RLQ. Lasted for a few minutes, got up [place] and the pain was a 3/4 dull brittnee, was there all day, no appetite, tried eating mashed potatoes for dinner and that made her nauseas. Was getting the sharp pain intermittently all day. A few days after [place] and the same thing happened again so she went to the Ed, CT was negative appendicitis. Ua showed slight UTI and low potassium at 3.1. Sent home with K prescription. She is still having some abd pain but now it is more RUQ and the sharp pain was worse after eating. No heartburn , no burning or belching. She is on depo shot does not have periods. Review of Systems Constitutional: no fever, no chills and not feeling poorly. ENT: no earache, no nasal discharge and no sore throat. Cardiovascular: no chest pain and no palpitations. Respiratory: no cough and not coughing up sputum. Gastrointestinal: abdominal pain and nausea, but no constipation, no diarrhea and no vomiting. Active Problems Problems Abdominal bloating (787.3) (R14.0) Atypical chest pain (786.59) (R07.89) Bilateral occipital neuralgia (723.8) (M54.81) Bronchitis (490) (J40) Bruising (924.9) (T14.8XXA) Cervical dystonia (333.83) (G24.3) Cervical pain (723.1) (M54.2) Chest tightness (786.59) (R07.89) Chronic constipation (564.00) (K59.09) Chronic migraine with aura (346.00) (G43.109) Contraception management (V25.9) (Z30.9) Edema of left lower extremity (782.3) (R60.0) Encounter for immunization (V03.89) (Z23) Encounter for surveillance of injectable contraceptive (V25.49) (Z30.42) GERD (gastroesophageal reflux disease) (530.81) (K21.9) Headache (784.0) (R51.9) IBS (irritable bowel syndrome) (564.1) (K58.9) Left knee pain (719.46) (M25.562) Migraine (346.90) (G43.909) Nausea and/or vomiting (787.01) (R11.2) Near syncope (780.2) (R55) Palpitations (785.1) (R00.2) Patellar instability of left knee (718.86) (M25.362) PVC's (premature ventricular contractions) (427.69) (I49.3) Right upper quadrant pain (789.01) (R10.11) Seasonal allergies (477.9) (J30.2) Stiffness of cervical spine (723.5) (M43.6) Urine test negative (V72.41) (Z32.02) Past Medical History Problems History of Menstruation AGE 12 No pertinent past medical history (V49.89) (Z78.9) Surgical History Problems History of Colonoscopy History of Knee surgery Left knee 2019 x2 2013 Family History Mother Family history of scleroderma (V19.8) (Z82.69) Father Family history of congestive heart failure (V17.49) (Z82.49) Grandparent Family history of hypertension (V17.49) (Z82.49) Grandmother Family history of myocardial infarction (V17.3) (Z82.49) Maternal Grandmother Family history of Alzheimer's disease (V17.2) (Z82.0) Paternal Grandmother Family history of kidney disease (V18.69) (Z84.1) Family history of lung cancer (V16.1) ( (more content not included)... Normal [facility] BASIC METABOLIC PANELon 12-2 Anion gap [Moles/Vol] 13 mmol/L Normal 10 - 20 [facility] Comment on above: Performed By: #### B MP #### [address] [address] Calcium [Mass/Vol] 9.2 mg/dL Normal 8.6 - 10.3 [facility] Comment on above: Performed By: #### B MP #### [address] [address] Chloride [Moles/Vol] 104 mmol/L Normal 98 - 107 [facility] Comment on above: Performed By: #### B MP #### [address] [address] Creatinine [Mass/Vol] 1.01 mg/dL Normal 0.50 - 1.05 [facility] Comment on above: Performed By: #### B MP #### [address] [address] GFR/1.73 sq M.predicted among non-blacks MDRD (S/P/Bld) [Vol rate/Area] 78 mL/min/{1.73_m2} Normal >90 [facility] Comment on above: Result Comment: CALC ULATIONS OF ESTIMATED GFR ARE PERFORMED USING THE 2020 CKD-EPI STUDY REFIT EQUATION WITHOUT THE RACE VARIABLE FOR THE IDMS-TRACEABLE CREATININE METHODS. https://jasn.asnjournals.org/content//ASN.8579366 988 Performed By: #### B MP #### [place] [address] Glucose [Mass/Vol] 94 mg/dL Normal 74 - 99 [facility] Comment on above: Performed By: #### B MP #### [place] [address] HCO3 (Bld) [Moles/Vol] 23 mmol/L Normal 21 - 32 [facility] Comment on above: Performed By: #### B MP #### [place] [address] Potassium [Moles/Vol] 3.1 mmol/L Low 3.5 - 5.3 [facility] Comment on above: Performed By: #### B MP #### [place] [id number] Sodium [Moles/Vol] 137 mmol/L Normal 136 - 145 [facility] Comment on above: Performed By: #### B MP #### [place] [id number] Urea nitrogen [Mass/Vol] 15 mg/dL Normal 6 - 23 [facility] Comment on above: Performed By: #### B MP #### [address] [address] CBC AND DIFFERENTIALon 10-02 % AUTOMATED IMMATURE GRAN 0.2 % Normal 0.0 - 0.9 [facility] Comment on above: Result Comment: Sylwia ture Granulocyte Count (IG) includes promyelocytes, myelocytes and metamyelocytes but does not include bands. Percent differential counts (%) should be interpreted in the context of the absolute cell counts (cells/L). Performed By: #### C BCDF #### [address] [address] Basophils (Bld) [#/Vol] 0.12 10*3/uL High 0.00 - 0.10 [facility] Comment on above: Performed By: #### C BCDF #### [address] [address] Basophils/100 WBC (Bld) 1.1 % Normal 0.0 - 2.0 [facility] Comment on above: Performed By: #### C BCDF #### [address] [address] Eosinophils (Bld) [#/Vol] 0.21 10*3/uL Normal 0.00 - 0.70 [facility] Comment on above: Performed By: #### C BCDF #### [address] [address] Eosinophils/100 WBC (Bld) 1.9 % Normal 0.0 - 6.0 [facility] Comment on above: Performed By: #### C BCDF #### [address] [address] Erythrocyte distribution width (RBC) [Ratio] 12.1 % Normal 11.5 - 14.5 [facility] Comment on above: Performed By: #### C BCDF #### [address] [address] Hematocrit (Bld) [Volume fraction] 38.3 % Normal 36.0 - 46.0 [facility] Comment on above: Performed By: #### C BCDF #### [address] [address] Hemoglobin (Bld) [Mass/Vol] 12.2 g/dL Normal 12.0 - 16.0 [facility] Comment on above: Performed By: #### C BCDF #### [address] [address] Lymphocytes (Bld) [#/Vol] 4.09 10*3/uL Normal 1.20 - 4.80 [facility] Comment on above: Performed By: #### C BCDF #### [address] [address] Lymphocytes/100 WBC (Bld) 36.6 % Normal 13.0 - 44.0 [facility] Comment on above: Performed By: #### C BCDF #### [address] [address] MCHC (RBC) [Mass/Vol] 31.9 g/dL Low 32.0 - 36.0 [facility] Comment on above: Performed By: #### C BCDF #### [address] [address] MCV (RBC) [Entitic vol] 94 fL Normal 80 - 100 [facility] Comment on above: Performed By: #### C BCDF #### [address] [address] Monocytes (Bld) [#/Vol] 0.87 10*3/uL Normal 0.10 - 1.00 [facility] Comment on above: Performed By: #### C BCDF #### [address] [address] Monocytes/100 WBC (Bld) 7.8 % Normal 2.0 - 10.0 [facility] Comment on above: Performed By: #### C BCDF #### [address] [address] Neutrophils (Bld) [#/Vol] 5.86 10*3/uL Normal 1.20 - 7.70 [facility] Comment on above: Result Comment: Perc ent differential counts (%) should be interpreted in the context of the absolute cell counts (cells/L). Performed By: #### C BCDF #### [address] [address] Neutrophils/100 WBC (Bld) 52.4 % Normal 40.0 - 80.0 [facility] Comment on above: Performed By: #### C BCDF #### [address] [address] Platelets (Bld) [#/Vol] 350 10*3/uL Normal 150 - 450 [facility] Comment on above: Performed By: #### C BCDF #### [address] [address] RBC 4.07 x10E12/L Normal 4.00 - 5.20 [facility] Comment on above: Performed By: #### C BCDF #### [address] [address] WBC (Bld) [#/Vol] 11.2 10*3/uL Normal 4.4 - 11.3 [facility] Comment on above: Performed By: #### C BCDF #### [address] [address] [address] ABDOMEN AND PELVIS W IV C ONTRASTon 10-02-2022 CT ABDOMEN AND PELVIS W IV CONTRAST Patient Name: JENNIFER HENLEY STUDY: CT ABDOMEN AND PELVIS W IV CONTRAST; 10/02/2022 5:12 am INDICATION: RLQ abd pain . COMPARISON: None. ACCESSION NUMBER(S): [id number] ORDERING CLINICIAN: FILI BRIGGS TECHNIQUE: Axial CT images of the abdomen and pelvis with coronal and sagittal reconstructed images obtained after intravenous administration of 90 mL Omnipaque 350 FINDINGS: LOWER CHEST: No acute abnormality of the lung bases. ABDOMEN: LIVER: Normal attenuation and contour. BILE DUCTS: Normal caliber. GALLBLADDER: No calcified gallstones. No wall thickening. PORTAL VEIN: Patent SPLEEN: Splenules are present. The spleen is otherwise unremarkable. PANCREAS: Unremarkable. ADRENALS: Unremarkable. KIDNEYS, URETERS and URINARY BLADDER: Symmetric renal enhancement. No hydronephrosis or perinephric fluid collection. Nonobstructing 2 mm stone in the lower pole of the left kidney. The bladder is decompressed, which limits evaluation. REPRODUCTIVE ORGANS: No pelvic masses. ABDOMINAL WALL: Within normal limits. PERITONEUM: No ascites, free air or fluid collection. BOWEL: The stomach is decompressed, which limits evaluation. No small or large bowel dilatation. Nondilated appendix. VESSELS: No aortic aneurysm. RETROPERITONEUM: No pathologically enlarged retroperitoneal lymph nodes. BONES: No acute osseous abnormality. IMPRESSION: No acute inflammatory process throughout the abdomen or pelvis. No CT evidence of obstructive uropathy. Nonobstructing 2 mm stone in the lower pole of the left kidney. Electronically signed by: WILBER YOUNG MD Normal [facility] CT Abdomen and Pelvis with I V Contraston 10-02-2022 CT Abdomen and Pelvis W contrast IV Normal [facility] Work Phone: [phone] Complete Blood Count + Diffe ovidioon 10-02-2022 Basophils/100 WBC (Bld) 1.1 % 0.0 - 2.0 [facility] Work Phone: [phone] Erythrocyte distribution width (RBC) [Ratio] 12.1 % See Below [facility] Work Phone: [phone] Comment on above: Reference Range: 11. 5 - 14.5 Hematocrit (Bld) [Volume fraction] 38.3 % See Below [facility] Work Phone: [phone] Comment on above: Reference Range: 36. 0 - 46.0 Hemoglobin (Bld) [Mass/Vol] 12.2 g/dL See Below [facility] Work Phone: [phone] Comment on above: Reference Range: 12. 0 - 16.0 Lymphocytes/100 WBC (Bld) 36.6 % See Below [facility] Work Phone: [phone] Comment on above: Reference Range: 13. 0 - 44.0 MCHC (RBC) [Mass/Vol] 31.9 g/dL below low threshold See Below [facility] Work Phone: [phone] Comment on above: Reference Range: 32. 0 - 36.0 MCV (RBC) [Entitic vol] 94 fL 80 - 100 [facility] Work Phone: [phone] Monocytes/100 WBC (Bld) 7.8 % 2.0 - 10.0 [facility] Work Phone: [phone] Neutrophils/100 WBC (Bld) 52.4 % See Below [facility] Work Phone: [phone] Comment on above: Reference Range: 40. 0 - 80.0 Platelets (Bld) [#/Vol] 350 10*3/uL 150 - 450 [facility] Work Phone: RBC (Bld) [#/Vol] 4.07 {x10E12/L} See Below [facility] Work Phone: Comment on above: Reference Range: 4.0 0 - 5.20 WBC (Bld) [#/Vol] 11.2 10*3/uL 4.4 - 11.3 [facility] Work Phone: Complete Blood Count + Differential 0.12 {x10E9/L} above high threshold See Below [facility] Work Phone: Comment on above: Reference Range: 0.0 0 - 0.10 Complete Blood Count + Differential 0.21 {x10E9/L} See Below [facility] Work Phone: Comment on above: Reference Range: 0.0 0 - 0.70 Complete Blood Count + Differential 0.87 {x10E9/L} See Below [facility] Work Phone: Comment on above: Reference Range: 0.1 0 - 1.00 Complete Blood Count + Differential 4.09 {x10E9/L} See Below [facility] Work Phone: Comment on above: Reference Range: 1.2 0 - 4.80 Complete Blood Count + Differential 5.86 {x10E9/L} See Below [facility] Work Phone: Comment on above: Reference Range: 1.2 0 - 7.70 Percent differential counts (%) should be interpreted in the context of the absolute cell counts (cells/L). Complete Blood Count + Differential 1.9 % 0.0 - 6.0 [facility] Work Phone: Complete Blood Count + Differential 0.2 % 0.0 - 0.9 [facility] Work Phone: Comment on above: Immature Granulocyte Count (IG) includes promyelocytes, myelocytes and metamyelocytes but does not include bands. Percent differential counts (%) should be interpreted in the context of the absolute cell counts (cells/L). HEPATIC FUNCTION PANELon Albumin [Mass/Vol] 4.4 g/dL Normal 3.4 - 5.0 [facility] Comment on above: Performed By: #### H EPFP #### [address] [address] ALP [Catalytic activity/Vol] 59 U/L Normal 33 - 110 [facility] Comment on above: Performed By: #### H EPFP #### [address] [address] ALT [Catalytic activity/Vol] 14 U/L Normal 7 - 45 [facility] Comment on above: Result Comment: Tori ents treated with Sulfasalazine may generate falsely decreased results for ALT. Performed By: #### H EPFP #### [address] [address] AST [Catalytic activity/Vol] 14 U/L Normal 9 - 39 [facility] Comment on above: Performed By: #### H EPFP #### [address] [address] Bilirubin [Mass/Vol] 0.6 mg/dL Normal 0.0 - 1.2 [facility] Comment on above: Performed By: #### H EPFP #### [address] [address] Bilirubin.indirect [Mass/Vol] 0.1 mg/dL Normal 0.0 - 0.3 [facility] Comment on above: Performed By: #### H EPFP #### [address] [address] Protein [Mass/Vol] 7.4 g/dL Normal 6.4 - 8.2 [facility] [facility] Comment on above: Performed By: #### H EPFP #### [address] [address] Hepatic Function Panelon Albumin BCP dye [Mass/Vol] 4.4 g/dL 3.4 - 5.0 -[facility] Work Phone: ALP [Catalytic activity/Vol] 59 U/L 33 - 110 [facility] Work Phone: [phone] ALT With P-5'-P [Catalytic activity/Vol] 14 U/L 7 - 45 [facility] Work Phone: [phone] Comment on above: Patients treated wit h Sulfasalazine may generate falsely decreased results for ALT. AST With P-5'-P [Catalytic activity/Vol] 14 U/L 9 - 39 [facility] Work Phone: [phone] Bilirubin [Mass/Vol] 0.6 mg/dL 0.0 - 1.2 -[facility] Work Phone: [phone] Bilirubin.direct [Mass/Vol] 0.1 mg/dL 0.0 - 0.3 [facility] Work Phone: [phone] Protein [Mass/Vol] 7.4 g/dL 6.4 - 8.2 [facility] Work Phone: [phone] LACTATEon 10-02-2022 Lactate [Moles/Vol] 0.7 mmol/L Normal 0.4 - 2.0 [facility] Comment on above: Result Comment: Jocelyne puncture immediately after or during the administration of Metamizole may lead to falsely low results. Testing should be performed immediately prior to Metamizole dosing. Performed By: #### L ACT #### [place] [id number] LIPASEon 10-02-2022 Lipase [Catalytic activity/Vol] 46 U/L Normal 9 - 82 [facility] Comment on above: Result Comment: Jocelyne puncture immediately after or during the administration of Metamizole may lead to falsely low results. Testing should be performed immediately prior to Metamizole dosing. T-nrykhu-b-benzoquinone imine (metabolite of Acetaminophen) will generate erroneously low results in samples for patients that have taken toxic doses of acetaminophen. Performed By: #### L IPAS #### [address] [address] Laboratory - Chemistry and C hemistry - challengeon 10-02-2022 Anion gap [Moles/Vol] 13 mmol/L 10 - 20 [facility] Work Phone: [phone] Calcium [Mass/Vol] 9.2 mg/dL 8.6 - 10.3 [facility] Work Phone: [phone] Chloride [Moles/Vol] 104 mmol/L 98 - 107 [facility] Work Phone: [phone] CO2 [Moles/Vol] 23 mmol/L 21 - 32 [facility] Work Phone: [phone] Creatinine [Mass/Vol] 1.01 mg/dL See Below [facility] Work Phone: [phone] Comment on above: Reference Range: 0.5 0 - 1.05 Glucose [Mass/Vol] 94 mg/dL 74 - 99 [facility] Work Phone: [phone] Potassium [Moles/Vol] 3.1 mmol/L below low threshold 3.5 - 5.3 [facility] Work Phone: [phone] Sodium [Moles/Vol] 137 mmol/L 136 - 145 [facility] Work Phone: [phone] Urea nitrogen [Mass/Vol] 15 mg/dL 6 - 23 [facility] Work Phone: [phone] Lactate, Levelon 10-02-2022 Lactate [Moles/Vol] 0.7 mmol/L 0.4 - 2.0 [facility] Work Phone: [phone] Comment on above: Venipuncture immedia tely after or during the administration of Metamizole may lead to falsely low results. Testing should be performed immediately prior to Metamizole dosing. Lipase, Serumon 10-02-2022 Lipase [Catalytic activity/Vol] 46 U/L 9 - 82 [facility] Work Phone: Comment on above: Venipuncture immedia tely after or during the administration of Metamizole may lead to falsely low results. Testing should be performed immediately prior to Metamizole dosing. V-ngyqnu-t-benzoquinone imine (metabolite of Acetaminophen) will generate erroneously low results in samples for patients that have taken toxic doses of acetaminophen. No Panel Informationon 10-02 78 {mL/min/1.73m2} >90 [facility] Work Phone: Comment on above: CALCULATIONS OF EVELYN MATED GFR ARE PERFORMED USING THE 2020 CKD-EPI STUDY REFIT EQUATION WITHOUT THE RACE VARIABLE FOR THE IDMS-TRACEABLE CREATININE METHODS.https://jasn.asnjournals.org/content/early//ASN .4152522772 Provider Note - ED v3on 09-07 Provider Note - ED v3 Provider Note: Chart Review: ED NOTES ED NOTES: HPI: Patient is a 26-year-old female chief complaint of right lower quadrant abdominal pain. It started [place] and was fairly sharp. It was fairly dull or Mauricio however today, the day after Mauricio and tonight it increased and it sharpness once again. She is on the Depo shot. She states it is worse after eating and is associated with significant nausea after eating as well. She is having bowel movements. No urinary complaints. She is concerned about appendicitis. ROS: Constitution: Denies Eyes: [place] Ears: Denies Nose: Denies Mouth/Teeth: Denies Throat/Neck: Denies Cardiovascular: Denies Respiratory: Denies Gastrointestinal: Denies Musculoskeletal: Denies Integumentary: Denies Endocrine: Denies Neuro: Denies Psychiatric: Denies Heme/Lymph: Denies Allergic/Immunologic: Denies Physical Exam I have reviewed the triage vital signs. Const: Well nourished, well developed, appears stated age, no acute distress Eyes: PERRL, EOM intact, no conjunctival injection, vision grossly normal HENT: Neck supple without meningismus , Moist mucous membranes, no pharyengeal swelling or exudate CV: Regular rate and rhythm, Warm, well-perfused extremities. Chest non tender RESP: Lungs clear bilaterally, Unlabored respiratory effort GI: soft, very mild tenderness in the right lower quadrant with fairly aggressive palpation, non-distended, no masses : MSK: No gross deformities appreciated Back: Non tender, no pain with ROM Skin: Warm, dry. No rashes Neuro: Alert and oriented x4, GCS 15 , electrician research II-XII grossly intact. Sensation and motor function of extremities grossly intact. Psych: Appropriate mood and affect. I have reviewed and confirmed nurses/medics notes for patient past, social and family history. Portions of this note were dictated by speech recognition. An attempt at proof reading was made to minimize errors. Minor errors in criminal intelligence analyst may be present. HISTORY OF PRESENTING ILLNESS JENNIFER is a 26 year old Female and was seen by me at 02-Oct-2022 03:39 for a chief complaint of abdominal pain (abd pain since mauricio. Pt on depo shot no periods usually. intermittent nausea. RLQ pain that intensifies with palpation. has been taking gas ex nothing appears to be helping.)(1). Triage Information: Most recent Vital Sign Value Date Temp (F): 98.1 10-02-2022 03:26 Temp (C): 36.7 10-02-2022 03:26 Heart Rate (beats/min): 91 10-02-2022 03:26 Respirations (breaths/min): 18 10-02-2022 03:26 SpO2 (%): 100 10-02-2022 03:26 BP Systolic (mm Hg): 117 10-02-2022 03:26 BP Diastolic (mm Hg): 70 10-02-2022 03:26 PAST MEDICAL HISTORY ALLERGIES/INTOLERANCES: Allergy Allergen: penicillin Type: Drug Reaction: Hives/Urticaria HEALTH HISTORY: No documented data. OUTPATIENT MEDICATIONS: Home Medications Review Status for Reconciliation: Complete Med Status: Patient Currently Takes Medications Drug Name: omeprazole 40 mg oral delayed release capsule Instructions: 1 cap(s) orally once a day, As Needed Drug Name: gabapentin 300 mg oral capsule Instructions: 1 cap(s) orally 2 times a day Drug Name: ZONISAMIDE CAP 100MG Instructions: 3 orally once a day (at bedtime) Drug Name: medroxyPROGESTERone 150 mg/mL intramuscular suspension Instructions: 1 milliliter(s) intramuscular every 3 months/ Patient does not know strength Drug Name: acetaminophen 500 mg oral tablet Instructions: 2 tab(s) orally every 6 hours, As Needed Drug Name: cetirizine 10 mg oral tablet Instructions: 1 tab(s) orally once a day, As Needed Drug Name: Qulipta 10 mg oral tablet Instructions: 1 tab(s) orally once a day / Patient does not know dose Drug Name: Trudhesa 4 mg/mL nasal spray Instructions: 1 spray(s) nasal every 15 minutes, As Needed Drug Name: Vitamin C 250 mg oral tablet, chewable Instructions: 1 tab(s) orally once a day SIGNIFICANT EVENTS: Past Medical History Description:IBS Description:Migraines Past Surgical History Description:fulkersonoste otomy CRITICAL CARE RESULTS: Recent Lab Results: I have reviewed these laboratory results: Hepatic Function Panel 02-Oct-2022 04:10:00 ResultValue Aspartate Transaminase, Serum 14 ALB 4.4 T Bili 0.6 Bilirubin, Serum Direct - Conjugated 0.1 ALKP 59 Alanine Aminotransferase, Serum 14 T Pro 7.4 Urinalysis, Microscopic 02-Oct-2022 04:10:00 ResultValue White Cells 20 A Red Blood Cells 4 Epithelial Cells, Squamous 6 Bacteria, Urine 2+ A Mucous 4+ Complete Blood Count + Differential 02-Oct-2022 04:10:00 ResultValue White Blood Cell Count 11.2 Red Blood Cell Count 4.07 HGB 12.2 HCT 38.3 MCV 94 MCHC 31.9 L PLT 350 RDW-CV 12.1 Neutrophil % 52.4 Immature Granulocytes % 0.2 Lymphocyte % 36.6 Monocyte % 7.8 Eosinophil % 1.9 Basophil % 1.1 Neutro (more content not included)... Normal [facility] Risk Screen - Adult Emergenc yon 10-02-2022 Risk Screen - Adult Emergency Preferred Language: Preferred Language: Preferred Language for Discussing Health Care (patient/designee)Tajik Patient Preferred Pharmacy: Patient Preferred Pharmacy Statement: I have reviewed and updated the patient's preferred pharmacy selection for today's visit. Advanced Directives: Advance Directive/DNRno Family Violence Adult: Abuse Screen: Are you or have you been threatened or abused physically, emotionally, or sexually by anyoneno Learning Assessment (Patient): Learning Assessment (Patient): Patient is Able to be Assessed for Learningyes Factors Influencing Readiness to Learnacuteness of illness Factors that Impact Ability to Learnnone Devices/Methods Used to Communicatenone Learning Preferenceswritten material; verbal instruction Cultural Considerationsnone Developmental Considerationsnone Baptist Considerationsnone Learning Assessment (Other Learner): Learning Assessment (Other Learner): Other learner availableno Pressure Injury/TB/Substance: Pressure Injury: Do you have a coughno Smoking Statusnever smoker Admission Risk Screen: Significant IndicatorsComplete CAGE: CAGE: Is this an injured patient at a Trauma Center ([facility]/[place]/ [place]): no Electronic Signatures: Maris Montez (RN) (Signed 02-Oct-2022 05:53) Authored: Preferred Language, Patient Preferred Pharmacy, Advanced Directives, Family Violence Adult, Learning Assessment (Patient), Learning Assessment (Other Learner), Pressure Injury/TB/Substance, Pressure Injury, CAGE Last Updated: 02-Oct-2022 05:53 by Maris Montez (RN) [facility] Triage - EDon 10-02-2022 Triage - ED Quick Triage: Are You no Have You Given In The Last 6 Weeksno Are You Currently Breastfeedingno Chart Review: ARRIVAL INFORMATION Mode of Arrival: private vehicle CHIEF COMPLAINT JENNIFER HENLEY is a Female patient with a chief complaint of abdominal pain (abd pain since . Pt on depo shot no periods usually. intermittent nausea. RLQ pain that intensifies with palpation. has been taking gas ex nothing appears to be helping.). Triage Date/Time: 02-Oct-2022 03:26 UDAY: 5 Pain Rating (0-10): 4 = Moderate Vital Signs: Temperature: 98.1F ( 36.7C) Blood Pressure: 117/70 Mean: Heart Rate: 91 Respiratory Rate: 18 Pulse Oximetry: 100% on room air, no respiratory support. Height: 5 feet 4.00 inches. 162.5 CM Weight: 185.1 pounds. Calculated 84.0 kg. Calculated BMI (kg/m2): 31.810 Calculated BSA (m2) 1.95 [place] Coma Scale: Best Eye Response: (E4) spontaneous Best Motor Response: (M6) obeys commands Best Verbal Response: (V5) oriented Rosario Score: 15 Patient has homicidal thoughts: no Risk Screens Suicide Risk Screen In the Past Month: Have you wished you were or wished you could go to sleep and not wake up no In the Past Month: Have you had any actual thoughts of killing yourself no In Your Lifetime: Have you ever done anything, started to do anything, or prepared to do anything to end your life no Interventions: Adams Fall Interventions: LOW INTERVENTIONS: *patient oriented to surroundings and call system, * patient/family falls education completed and documented, *patients fall status communicated during bedside handoff, *whiteboard updated, *mode of toileting discussed with patient, *bed in low position with brakes locked, *call light in reach, * non-skid footwear TRAVEL HISTORY Travel History Coronavirus Screening: no exposure or symptoms Travel Exposure History: NO travel to International locations in the past 30 days PAIN Pain Scale Used: KYLEE Pain Rating (0-10): 4 = Moderate Past Medical History: Past Medical History Reviewedyes Electronic Signatures: Jenni Pascal (RN PRN) (Signed 02-Oct-2022 03:33) Authored: Quick Triage, Risk Screens, Pain, Travel History, Chart Review, Scores, Past Medical History Last Updated: 02-Oct-2022 03:33 by Jenni Pascal (RN PRN) Normal [facility] UA MICROSCOPICon 10-02-2022 BACTERIA 2+ /HPF Abnormal [facility] Comment on above: Performed By: #### C BCDF #### [place] [address] Mucus Ql (Urine sed) 4+ /LPF Normal [facility] Comment on above: Performed By: #### C BCDF #### [place] [address] RBC 4 /HPF Normal 0-5 [facility] Comment on above: Performed By: #### C BCDF #### [place] [address] SQUAMOUS EPITH. CELLS 6 /HPF Normal [facility] Comment on above: Performed By: #### C BCDF #### [place] [address] WBC 20 /HPF Abnormal 0-5 [facility] Comment on above: Performed By: #### C BCDF #### [place] [address] URINALYSISon 10-02-2022 Appearance (U) HAZY Normal CLEAR [facility] Comment on above: Performed By: #### U A #### [place] [address] Bilirubin Ql (U) SMALL(1+) Abnormal NEGATIVE [facility] Comment on above: Performed By: #### U A #### [place] [address] Color (U) YELLOW Normal STRAW,YELLOW [facility] Comment on above: Performed By: #### U A #### [place] [address] Glucose Ql (U) Negative Normal NEGATIVE [facility] Comment on above: Performed By: #### U A #### [place] [address] Hemoglobin Ql (U) Negative Normal NEGATIVE [facility] Comment on above: Performed By: #### U A #### [place] [address] Ketones Ql (U) 25 (1+) Abnormal NEGATIVE [facility] Comment on above: Performed By: #### U A #### [place] [address] Leukocyte esterase Test strip Ql (U) TRACE Abnormal NEGATIVE [facility] Comment on above: Performed By: #### U A #### [place] [address] Nitrite Ql (U) Negative Normal NEGATIVE [facility] Comment on above: Performed By: #### U A #### [place] [address] pH (U) 5.5 [pH] Normal 5.0 - 8.0 [facility] Comment on above: Performed By: #### U A #### [place] [address] Protein Ql (U) TRACE Normal NEGATIVE [facility] Comment on above: Performed By: #### U A #### [place] [id number] Specific gravity (U) [Rel density] >1.035 Abnormal 1.005 - 1.035 [facility] Comment on above: Performed By: #### U A #### [address] [address] Urobilinogen (U) [Mass/Vol] mg/dL Normal 0.0 - 1.9 [facility] Comment on above: Performed By: #### U A #### [address] [address] Urinalysison 10-02-2022 Color (U) YELLOW See Below [facility] Work Phone: [phone] Comment on above: Reference Range: STR AW,YELLOW Glucose Ql (U) Negative NEGATIVE [facility] Work Phone: [phone] Ketones Ql (U) 25 (1+) Abnormal NEGATIVE [facility] Work Phone: [phone] Leukocyte esterase Test strip Ql (U) TRACE Abnormal NEGATIVE [facility] Work Phone: [phone] pH (U) 5.5 [pH] 5.0 - 8.0 [facility] Work Phone: [phone] Protein (U) [Mass/Vol] TRACE NEGATIVE [facility] Work Phone: [phone] RBC (U) [#/Vol] Negative NEGATIVE [facility] Work Phone: [phone] Specific gravity (U) [Rel density] >1.035 Abnormal See Below [facility] Work Phone: [phone] Comment on above: Reference Range: 1.0 05 - 1.035 Urinalysis Negative NEGATIVE [facility] Work Phone: [phone] Urinalysis <2.0 0.0 - 1.9 [facility] Work Phone: [phone] Urinalysis SMALL(1+) Abnormal NEGATIVE [facility] Work Phone: [phone] Urinalysis HAZY CLEAR [facility] Work Phone: Urinalysis, Microscopicon Urinalysis, Microscopic 4+ [facility] Work Phone: Urinalysis, Microscopic 2+ Abnormal [facility] Work Phone: Urinalysis, Microscopic 6 {/HPF} [facility] Work Phone: Urinalysis, Microscopic 4 {/HPF} 0-5 [facility] Work Phone: Urinalysis, Microscopic 20 {/HPF} Abnormal 0-5 [facility] Work Phone: Office Visit (Neuro-General) on 08-15-2022 Follow-up visit Patient Discussion/Summary Referral to neuro-autonomic specialist for episodes of lighheadedness, tachycardia, dizziness that occurs while standing or going up stairs. Tilt-table testing. Continue Qulipta for migraine prevention. Trudhesa not covered. We will submit an appeal letter. Continue exercise from physical therapy. Please call our office at [phone] to leave a message with my escrow secretary if you have any questions or concerns. Please contact me on the [employer] application if you cannot reach me through the phone. Return to clinic in 6-12 months or earlier as needed. Diagnoses/Problems Assessed Chronic migraine with aura (346.00) (G43.109) Near syncope (780.2) (R55) Orders Chronic migraine with aura Renew: Trudhesa 0.725 MG/ACT Nasal Aerosol Solution; USE 1 SPRAY IN EACH NOSTRIL NEEDED AT ONSET OF HEADACHE. MAY REPEAT IN 1 HOUR IF NEEDED. MAXIMUM 2 DOSES PER DAY OR 3 DOSES WITHIN 7 DAYS. PRIME WITH 4 PUMPS PRIOR TO EACH USE Near syncope Neurology - Autonomic Referral Evaluation and Treatment Evaluate AND Treat started with spells of light headedness, dizziness, tachycardia (150BPM), shaky sensation can occur while standing or performing activities. Status: Hold For - Scheduling Requested for: 15Aug2022 Tilt Table; Status:Hold For - Scheduling; Requested for:15Aug2022; Chief Complaint Headaches History of Present Illness Patient referred by Evelyn Busch DO with history significant for migraine, GERD, and IBS here today to discuss headache. Patient reports significant improvement in the frequency and severity of her headaches and migraines with physical therapy. The exercises, dry needling, and massage are helpful. Notes that Qulipta has been very helpful for migraine prevention. Trudhesa very helpful for rescue, but she is running into issues getting it authorized. She is sending in an appeal, she will give our office that denial letter. Unfortunately, she notes that she developed some sort of a heart issue, 04/2022 experienced the first spell of lightheadedness, dizziness, shaky sensation, heart racing (150 bpm when she measured at a later episode), notes that occurred again the following day. Notes that is typically triggered by standing or walking up steps. She notes that she is constantly feeling fatigued. She has completed an echo/stress test with cardiology which have been normal, and tilt table test has not been completed. Headaches described as occurring in different locations at different times, behind both eyes, sharp pain that shoots across top of head L>R. Headaches associated with nausea (after COVID infection), photophobia/phonophobia. Triggers include smells (like essential oils, perfume, food smells), light, sound, weather changes. Denies triggers alcohol (does not drink much), stress, sleep changes, certain foods, menses (on depo). 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 Has tried the following medications and treatments: Qulipta very helpful to reduce the frequency and severity of her migraines, now happening about once a month. Trudhesa effective as an abortive for headaches, no side effects, works most of the time. Usually one dose is sufficient, when severe might need a second dose Gabapentin was helpful in the past, but not currently. During increase felt more sluggish and didn?t help with the headaches. Zonisamide helps with sleep, but doesn?t help with the headaches currently Ondansetron for nausea, sometimes helpful. Past Meds: Ibuprofen without benefit for headache. Tylenol not effective. Aimovig not as helpful as the Avery was, still getting headaches daily, some decrease in severity of headache. Emgality for 3-4 months, has lessened migraines, but still with daily headaches. Naratriptan 2.5mg no longer effective, was helpful in the past, no side effects. No triptans used in past 24 hours. Avery was on it monthly, previously it was helpful, was able to get down to a few days a month with headache. [place] energized and semi-normal at the time. Prednisone cannot recall effect on headache, no side effects. Sumatriptan shot and nasal spray not helpful. Nurtec made nauseated, not helpful. Ubrelvy helped but knocked her out. Topiramate hallucinating and GI issues, slowed digestion. Amitriptyline did not help, cannot recall side effects Toradol injection alone was insufficient to break cycle of migraines when they started in 2019. Occipital nerve block was helpful, she had her day without any headache issues. Hot shower, ice packs sometimes helps. Draws the shades. PT neck massage, did not seem to help. Did some exercises/stretches to do during headaches that does not seem to improve. Record Review: 04/18/2022 Visit note: Sees flashes of light before or during headache (new after Covid), double vision during headache. Can get a weird burnt smell beforehand. Sometimes difficult to find words, feel cognitive slowing during headache, (more content not included)... Normal [employer] Cardiac Stress Teston 2021 [place] [address] [phone], Exercise Stress Test Patient Name: JENNIFER HENLEY Ordering Physician: Study Date: 07/26/2022 Reading Physician: Sang Campos MD MRN/PID: [id number] Supervising Sang Campos Physician: Accession/Order#: [id number] Referring Physician: Sang Campos MD Date of : 1995 PCP: Gender: F Fellow: Admit Date: 07/26/2022 Fellow: Admission Status: Outpatient Customer Service Leader: Minerva Betancourt RRT Height: 163.00 cm Nurse: N/A Weight: 89.00 kg Conventions Assistant: N/A BSA: 1.94 m2 Technologist: BMI: 33.50 kg/m2 Additional Staff: Age: 26 years cc report to: Patient Location: [facility] Stress Lab cc report to: Study Type: Cardiac Stress Test Diagnosis/ICD: R07.89-Other chest pain Indication: Chest Pain and PALPATATIONS, PVC Procedure/CPT: Stress Test Interpretation-[id number]; Stress Test Supervision-[id number] Falls Risk: Low: Patient has low risk for sustaining a fall; environmental safety interventions in place. Study Details: Correct procedure and correct patient verified verbally and with ID Band checked. Patient History: Family history of coronary artery disease, chest pain, palpitations and PVC. Allergies: PENICILLINS. Smoker: Never. Diabetes: No. BMI: Obese >30. Medications: GABAPENTIN, MEDROXYPROGESTERONE, OMEPRAZOLE, ONDANSETRON, TRUDHESA, ZONISAMIDE. The patient did not take medications as prescribed. Patient Performance: The patient exercised to stage III on a Gumaro protocol for 7 minutes and 15 seconds, achieving 8.3 METS. The peak heart rate achieved was 164 bpm, which was 85 % of the age predicted target heart rate of 193 bpm. The resting blood pressure was 101/71 mmHg with a heart rate of 69 bpm. The standing blood pressure was 101/70 mmHg with a heart rate of 94 bpm. The patient developed shortness of breath, dizziness and chest heaviness during the stress exam. The symptoms resolved with rest 4 minutes into recovery. The blood pressure response was normal. The test was terminated due to: completed lab protocol, dyspnea and chest pain - non-cardiac. Baseline ECG: Resting ECG showed normal sinus rhythm with normal tracing. Stress ECG: Stress ECG showed sinus tachycardia. Stress Stage Data: + +---+-- ----+-------+ HR Sys BP Paul BP + +---+-- ----+-------+ Baseline Resting 69 101 71 + +---+-- ----+-------+ Baseline Standing 94 101 70 + +---+-- ----+-------+ Stage I 126 128 59 + +---+-- ----+-------+ Stage II 158 136 54 + +---+-- ----+-------+ Stage III 164 + +---+-- ----+-------+ Recovery ECG: Recovery ECG showed sinus tachycardia. The heart rate recovery was normal. + +---+------+- ------+ HR Sys BP Paul BP + +---+------+- ------+ Recovery I 142 118 97 + +---+------+- ------+ Recovery II 129 137 82 + +---+------+- ------+ Summary: 1. Baseline EKG shows normal sinus rhythm with nonspecific ST-T segment changes. 2. Patient exercised for 7 minutes 15 seconds achieving 8.3 METS. 3. Heart rate response to exercise normal. Blood pressure response to exercise normal. 4. Exercise capacity is below average for age. 5. With exercise no ST-T segment changes suggestive of ischemia or sustained ventricular arrhythmias are seen. 6. Exercise stress EKG is negative for ischemia. 7. Blancas treadmill score is 7 (low risk). Sang Campos MD Electronically signed on 07/26/2022 at 1:02:44 PM Final Normal [facility] Cardiac Stress Test MP-Ne urology- [address] DO Work Phone: Echocardiogramon 07-26-2022 [place] [address] [phone], TRANSTHORACIC ECHOCARDIOGRAM REPORT Patient Name: JENNIFER HENLEY Orlin Physician: Sang Campos MD Study Date: 07/26/2022 Referring Physician: Sang Campos MD MRN/PID: [id number] PCP: Accession/Order#: [id number] Department Location: [facility] Echo Lab Date of : 1995 Fellow: Gender: F Nurse: Admit Date: Conventions Assistant: RAMAN Villanueva RVT Admission Status: Outpatient Additional Staff: Height: 162.56 cm CC Report to: Weight: 83.92 kg Study Type: Echocardiogram BSA: 1.89 m2 Blood Pressure: 132 /84 mmHg Diagnosis/ICD: R07.9-Chest pain, unspecified Indication: Chest Pain, Palps Procedure/CPT: Echo Complete w Full [id number] Patient History: Pertinent History: No previous echo. Study Detail: The following Echo studies were performed: 2D, M-Mode, Doppler and color flow. A bubble study was not performed. The patient was awake. PHYSICIAN INTERPRETATION: Left Ventricle: Left ventricular systolic function is normal, with an estimated ejection fraction of 60%. There are no regional wall motion abnormalities. The left ventricular cavity size is normal. Left ventricular diastolic filling was indeterminate. Left Atrium: The left atrium is normal in size. Right Ventricle: The right ventricle is normal in size. There is normal right ventricular global systolic function. Right Atrium: The right atrium is normal in size. Prominent Eustachian valve. Aortic Valve: The aortic valve is trileaflet. There is no evidence of aortic valve regurgitation. The peak instantaneous gradient of the aortic valve is 8.6 mmHg. The mean gradient of the aortic valve is 4.0 mmHg. Mitral Valve: The mitral valve is normal in structure. There is no evidence of mitral valve regurgitation. Tricuspid Valve: The tricuspid valve is structurally normal. No evidence of tricuspid regurgitation. Pulmonic Valve: The pulmonic valve is structurally normal. There is no indication of pulmonic valve regurgitation. Pericardium: There is no pericardial effusion noted. Aorta: The aortic root is normal. Systemic Veins: The inferior vena cava appears to be of normal size. There is IVC inspiratory collapse greater than 50%. CONCLUSIONS: 1. Left ventricular systolic function is normal with a 60% estimated ejection fraction. QUANTITATIVE DATA SUMMARY: 2D MEASUREMENTS: Normal Ranges: Ao Root d: 2.40 cm (2.0-3.7cm) LAs: 2.50 cm (2.7-4.0cm) IVSd: 0.97 cm (0.6-1.1cm) LVPWd: 0.92 cm (0.6-1.1cm) LVIDd: 4.27 cm (3.9-5.9cm) LVIDs: 2.16 cm LV Mass Index: 68.5 g/m2 LV % FS 49.4 % LA VOLUME: Normal Ranges: LA Vol A4C: 21.5 ml (22+/-6mL/m2) LA Vol A2C: 21.6 ml LA Vol BP: 23.7 ml LA Vol Index A4C: 11.3ml/m2 LA Vol Index A2C: 11.4 ml/m2 LA Vol Index BP: 12.5 ml/m2 LA Area A4C: 9.9 cm2 LA Area A2C: 9.0 cm2 LA [place] A4C: 3.9 cm LA [place] A2C: 3.2 cm LA Volume Index: 10.6 ml/m2 LA Vol A4C: 19.6 ml LA Vol A2C: 20.1 ml M-MODE MEASUREMENTS: Normal Ranges: AoV Exc: 1.80 cm (1.5-2.5cm) AORTA MEASUREMENTS: Normal Ranges: AoV Exc: 1.80 cm (1.5-2.5cm) LV SYSTOLIC FUNCTION BY 2D PLANIMETRY (MOD): Normal Ranges: EF-A4C View: 61.7 % (>55%) EF-A2C View: 64.3 % EF-Biplane: 61.7 % LV DIASTOLIC FUNCTION: Normal Ranges: MV Peak E: 0.89 m/s (0.7-1.2 m/s) MV Peak A: 0.64 m/s (0.42-0.7 m/s) E/A Ratio: 1.38 (1.0-2.2) MV e' 0.11 m/s (>8.0) MV lateral e' 0.17 m/s MV medial e' 0.12 m/s E/e' Ratio: 8.05 (<8.0) MITRAL VALVE: Normal Ranges: MV DT: 165 msec (150-240msec) AORTIC VALVE: Normal Ranges: AoV Vmax: 1.47 m/s (<1.7m/s) AoV Peak P.6 mmHg (<20mmHg) AoV Mean P.0 mmHg (1.7-11.5mmHg) LVOT Max Garrett: 1.23 m/s (<1.1m/s) AoV VTI: 31.60 cm (18-25cm) LVOT VTI: 24.40 cm LVOT Diameter: 2.00 cm (1.8-2.4cm) AoV Area, VTI: 2.43 cm2 (2.5-5.5cm2) AoV Area,Vmax: 2.63 cm2 (2.5-4.5cm2) AoV Dimensionless Index: 0.77 RIGHT VENTRICLE: RV 1 2.18 cm RV 2 1.76 cm RV 3 5.71 cm TAPSE: 17.5 mm TRICUSPID VALVE/RVSP: Normal Ranges: Peak TR Velocity: 2.37 m/s Est. RA Pressure: 3 mmHg RV Syst Pressure: 25.5 mmHg (< 30mmHg) PULMONIC VALVE: Normal Ranges: PV Accel Time: 99 msec (>120ms) PV Max Garrett: 1.3 m/s (0.6-0.9m/s) PV Max P.2 mmHg [id number] Tobias Campos MD Electronically signed on 07/26/2022 at 12:15:16 PM Final Normal [facility] LIPID PANEL (CORONARY RISK 2 )on 07-26-2022 Cholesterol [Mass/Vol] 202 mg/dL High 0 - 199 [facility] Comment on above: Result Comment: . AGE DESIRABLE BORDERLINE HIGH HIGH 0-19 Y 0 - 169 170 - 199 >/= 200 20-24 Y 0 - 189 190 - 224 >/= 225 >24 Y 0 - 199 200 - 239 >/= 240 All ranges are based on fasting samples. Specific therapeutic targets will vary based on patient-specific cardiac risk. . Pediatric guidelines reference:Pediatrics 2011, 128(S5).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 PRESENTING ILLNESS JENNIFER is a 26 year old Female and was seen by me at 29-May-2022 15:33 for a chief complaint of multiple medical complaints (To ED per wheelchair with c/o feeling near syncopal. Pt is wearing a halter monitor ordered by PCP for fluctuating HR. [employer], while at [employer] around 1445 she started to feel jittery inside, felt light headed like she was going to pass out, was nauseated and had an episode of CP that lasted 2-3 minutes. She took a Zofran and called her mom because she felt unsafe to drive.)(1). Triage Information: Most recent Vital Sign Value Date Temp (F): 98.9 05-29-2022 15:29 Temp (C): 37.1 05-29-2022 15:29 Heart Rate (beats/min): 104 05-29-2022 15:29 Respirations (breaths/min): 16 05-29-2022 15:29 SpO2 (%): 99 05-29-2022 15:29 BP Systolic (mm Hg): 136 05-29-2022 15:29 BP Diastolic (mm Hg): 86 05-29-2022 15:29 PAST MEDICAL HISTORY ALLERGIES/INTOLERANCES: Allergy Allergen: penicillin Type: Drug Reaction: Hives/Urticaria HEALTH HISTORY: No documented data. OUTPATIENT MEDICATIONS: Home Medications Review Status for Reconciliation: Complete Med Status: Patient Currently Takes Medications Drug Name: omeprazole 40 mg oral delayed release capsule Instructions: 1 cap(s) orally once a day, As Needed Drug Name: gabapentin 300 mg oral capsule Instructions: 1 cap(s) orally 2 times a day Drug Name: ZONISAMIDE CAP 100MG Instructions: 3 orally once a day (at bedtime) Drug Name: medroxyPROGESTERone 150 mg/mL intramuscular suspension Instructions: 1 milliliter(s) intramuscular every 3 months/ Patient does not know strength Drug Name: acetaminophen 500 mg oral tablet Instructions: 2 tab(s) orally every 6 hours, As Needed Drug Name: cetirizine 10 mg oral tablet Instructions: 1 tab(s) orally once a day, As Needed Drug Name: Qulipta 10 mg oral tablet Instructions: 1 tab(s) orally once a day / Patient does not know dose Drug Name: Trudhesa 4 mg/mL nasal spray Instructions: 1 spray(s) nasal every 15 minutes, As Needed Drug Name: Vitamin C 250 mg oral tablet, chewable Instructions: 1 tab(s) orally once a day SIGNIFICANT EVENTS: Past Medical History Description:IBS Description:Migraines Past Surgical History Description:fulkersonoste otomy CRITICAL CARE RESULTS: Recent Lab Results: I have reviewed these laboratory results: Troponin I, High Sensitivity Trending View [id number] 17:30:00 29-May-2022 15:59:00 Troponin I, High Sensitivity<3 <3 D-Dimer, VTE Exclusion (more content not included)... Normal [facility] RED CELL MORPHOLOGYon 2021 RBC morphology finding Nom (Bld) NORMAL Normal [facility] Comment on above: Performed By: #### B #### [address] [address] TROPONIN I, HIGH SENSITIVITY on 05-29-2022 TROPONIN I, HIGH SENSITIVITY <3 Normal 0 - [facility] Comment on above: Result Comment: . Less than 99th percentile of normal range cutoff- Female and children under 18 years old <14 ng/L; Male <21 ng/L: Negative Repeat testing should be performed if clinically indicated. . Female and children under 18 years old 14-50 ng/L; Male 21-50 ng/L: Consistent with possible cardiac damage and possible increased clinical risk. Serial measurements may help to assess extent of myocardial damage. . >50 ng/L: Consistent with cardiac damage, increased clinical risk and myocardial infarction. Serial measurements may help assess extent of myocardial damage. . NOTE: Children less than 1 year old may have higher baseline troponin levels and results should be interpreted in conjunction with the overall clinical context. . NOTE: Troponin I testing is performed using a different testing methodology at [facility] than at other [facility]. Direct result comparisons should only be made within the same method. Performed By: #### T [facility] #### [address] [address] TROPONIN I, HIGH SENSITIVITY <3 Normal 0 - 13 [facility] Comment on above: Result Comment: . Less than 99th percentile of normal range cutoff- Female and children under 18 years old <14 ng/L; Male <21 ng/L: Negative Repeat testing should be performed if clinically indicated. . Female and children under 18 years old 14-50 ng/L; Male 21-50 ng/L: Consistent with possible cardiac damage and possible increased clinical risk. Serial measurements may help to assess extent of myocardial damage. . >50 ng/L: Consistent with cardiac damage, increased clinical risk and myocardial infarction. Serial measurements may help assess extent of myocardial damage. . NOTE: Children less than 1 year old may have higher baseline troponin levels and results should be interpreted in conjunction with the overall clinical context. . NOTE: Troponin I testing is performed using a different testing methodology at [facility] than at other [facility]. Direct result comparisons should only be made within the same method. Performed By: #### C BC #### [place] [address] Tropinin I.cardiac panel High sensitivity method <3 0 - 13 [facility] 119 [place] Work Phone: Comment on above: .Less than 99th perc entile of normal range cutoff-Female and children under 18 years old <14 ng/L; Male <21 ng/L: NegativeRepeat testing should be performed if clinically indicated. .Female and children under 18 years old 14-50 ng/L; Male 21-50 ng/L:Consistent with possible cardiac damage and possible increased clinical risk. Serial measurements may help to assess extent of myocardial damage. .>50 ng/L: Consistent with cardiac damage, increased clinical risk andmyocardial infarction. Serial measurements may help assess extent of myocardial damage. . NOTE: Children less than 1 year old may have higher baseline troponin levels and results should be interpreted in conjunction with the overall clinical context. .NOTE: Troponin I testing is performed using a different testing methodology at [facility] than at other [facility]. Direct result comparisons should only be made within the same method. Tropinin I.cardiac panel High sensitivity method <3 0 - 13 [facility] 119 [place] Work Phone: Comment on above: .Less than 99th perc entile of normal range cutoff-Female and children under 18 years old <14 ng/L; Male <21 ng/L: NegativeRepeat testing should be performed if clinically indicated. .Female and children under 18 years old 14-50 ng/L; Male 21-50 ng/L:Consistent with possible cardiac damage and possible increased clinical risk. Serial measurements may help to assess extent of myocardial damage. .>50 ng/L: Consistent with cardiac damage, increased clinical risk andmyocardial infarction. Serial measurements may help assess extent of myocardial damage. . NOTE: Children less than 1 year old may have higher baseline troponin levels and results should be interpreted in conjunction with the overall clinical context. .NOTE: Troponin I testing is performed using a different testing methodology at [facility] than at other [facility]. Direct result comparisons should only be made within the same method. Triage - EDon 05-29-2022 Triage - ED Quick Triage: Are You no Have You Given In The Last 6 Weeksno Are You Currently Breastfeedingno The patient and/or guardian verbally acknowledges placement for services into the following (when Urgent Care Service hours are operating):emergency department Chart Review: ARRIVAL INFORMATION Mode of Arrival: private vehicle CHIEF COMPLAINT JENNIFER HENLEY is a Female patient with a chief complaint of multiple medical complaints (To ED per wheelchair with c/o feeling near syncopal. Pt is wearing a halter monitor ordered by PCP for fluctuating HR. [employer], while at [facility] around 1445 she started to feel jittery inside, felt light headed like she was going to pass out, was nauseated and had an episode of CP that lasted 2-3 minutes. She took a Zofran and called her mom because she felt unsafe to drive.). Triage Date/Time: 29-May-2022 15:29 UDAY: 2 Pain Rating (0-10): 0 = None Pain location: denies at present Vital Signs: Temperature: 98.9F ( 37.1C) taken temporal Blood Pressure: 136/86 Mean: Heart Rate: 104 Respiratory Rate: 16 Pulse Oximetry: 99% on room air, no respiratory support. Weight: 185.1 pounds. Calculated 84.0 kg. Fairmont Coma Scale: Best Eye Response: (E4) spontaneous Best Motor Response: (M6) obeys commands Best Verbal Response: (V5) oriented Fairmont Score: 15 Cough lasting greater than 3 weeks: no Allergies: yes Mask applied: yes Last menstrual period: unknown INTERVENTIONAL RADIOLOGIST History: control Patient has homicidal thoughts: no Symptoms Are POSITIVE For: nausea Symptoms Are Negative For: anxiety, chills, diaphoresis, dyspnea, headache, loss of consciousness, numbness, pain, tingling and weakness Risk Screens Suicide Risk Screen In the Past Month: Have you wished you were or wished you could go to sleep and not wake up no In the Past Month: Have you had any actual thoughts of killing yourself no In Your Lifetime: Have you ever done anything, started to do anything, or prepared to do anything to end your life no Adams Fall Scale Screening Has the patient fallen before (or is the patient in the ED as a result of a fall) has not had a fall Does the patient have an impaired gait does not have impaired gait Is the patient cognitively impaired not cognitively impaired Interventions: Adams Fall Interventions: LOW INTERVENTIONS: *patient oriented to surroundings and call system, * patient/family falls education completed and documented, *patients fall status communicated during bedside handoff, *whiteboard updated, *mode of toileting discussed with patient, *bed in low position with brakes locked, *call light in reach, * non-skid footwear TRAVEL HISTORY Travel History Coronavirus Screening: no exposure or symptoms Travel Exposure History: NO travel to International locations in the past 30 days PAIN Pain Scale Used: KYLEE Pain Rating (0-10): 0 = None Past Medical History: Past Medical History Reviewedyes Electronic Signatures: Bre Redmond (ASHLEY) (Signed 29-May-2022 15:37) Entered: Risk Screens, Pain, Travel History, Chart Review, Scores, Past Medical History Authored: Quick Triage, Risk Screens, Pain, Travel History, Chart Review, Scores, Past Medical History Last Updated: 29-May-2022 15:37 by Bre Redmond (ASHLEY) Normal [facility] URINALYSISon 05-29-2022 Appearance (U) CLEAR Normal CLEAR [facility] Comment on above: Performed By: #### U A #### [address] [address] Bilirubin Ql (U) Negative Normal NEGATIVE [facility] Comment on above: Performed By: #### U A #### [place] [address] Color (U) YELLOW Normal STRAW,YELLOW [facility] Comment on above: Performed By: #### U A #### [place] [address] Glucose Ql (U) Negative Normal NEGATIVE [facility] Comment on above: Performed By: #### U A #### [place] [address] Hemoglobin Ql (U) Negative Normal NEGATIVE [facility] Comment on above: Performed By: #### U A #### [place] [address] Ketones Ql (U) Negative Normal NEGATIVE [facility] Comment on above: Performed By: #### U A #### [place] [address] Leukocyte esterase Test strip Ql (U) Negative Normal NEGATIVE [facility] Comment on above: Performed By: #### U A #### [place] [address] Nitrite Ql (U) Negative Normal NEGATIVE [facility] Comment on above: Performed By: #### U A #### [place] [address] pH (U) 6.0 [pH] Normal 5.0 - 8.0 [facility] Comment on above: Performed By: #### U A #### [place] [address] Protein Ql (U) Negative Normal NEGATIVE [facility] Comment on above: Performed By: #### U A #### [place] [address] Specific gravity (U) [Rel density] 1.025 Normal 1.005 - 1.035 [facility] Comment on above: Performed By: #### U A #### [place] [id number] Urobilinogen (U) [Mass/Vol] mg/dL Normal 0.0 - 1.9 [facility] Comment on above: Performed By: #### U A #### [facility] [address] [place] [address] Urinalysison 05-29-2022 Color (U) YELLOW See Below [facility]-Luz Elenamichael hernández [place] [address] [place] Work Phone: Comment on above: Reference Range: STR AW,YELLOW Glucose Ql (U) Negative NEGATIVE [facility] [place] [address] [place] Work Phone: Ketones Ql (U) Negative NEGATIVE [facility] [place] [address] [place] Work Phone: Leukocyte esterase Test strip Ql (U) Negative NEGATIVE [facility] [place] [address] [place] Work Phone: pH (U) 6.0 [pH] 5.0 - 8.0 [facility] [place] [address] [place] Work Phone: Protein (U) [Mass/Vol] Negative NEGATIVE [facility] [place] [address] [place] Work Phone: RBC (U) [#/Vol] Negative NEGATIVE [facility] [address] [place] Work Phone: Specific gravity (U) [Rel density] 1.025 1 See Below [facility] [place] [address] [place] Work Phone: Comment on above: Reference Range: 1.0 05 - 1.035 Urinalysis Negative NEGATIVE [facility] [place] [address] [place] Work Phone: Urinalysis <2.0 0.0 - 1.9 [facility] [place] [address] [place] Work Phone: Urinalysis CLEAR CLEAR [facility] [address] [place] Work Phone: Urine Teston 05-29 HCG ( test) Ql (U) Negative Negative [facility] [place] [address] [place] Work Phone: Blood Pressure Cuff Sizeon 0 05-17-2022 Adult depression screening assessment No [facility] Work Phone: Fall risk assessment a) No falls within the last year [facility] Work Phone: Tobacco use status [facility] b) No [facility] Work Phone: Blood Pressure Cuff Size Adult [facility] Work Phone: Complete Blood Count + Diffe marcial 05-17-2022 Basophils/100 WBC (Bld) 1.3 % 0.0 - 2.0 [facility] Work Phone: Erythrocyte distribution width (RBC) [Ratio] 13.4 % See Below [facility] Work Phone: Comment on above: Reference Range: 11. 5 - 14.5 Hematocrit (Bld) [Volume fraction] 39.9 % See Below [facility] Work Phone: Comment on above: Reference Range: 36. 0 - 46.0 Hemoglobin (Bld) [Mass/Vol] 13.1 g/dL See Below [facility] Work Phone: Comment on above: Reference Range: 12. 0 - 16.0 Lymphocytes/100 WBC (Bld) 32.2 % See Below [facility] Work Phone: Comment on above: Reference Range: 13. 0 - 44.0 MCHC (RBC) [Mass/Vol] 32.7 g/dL See Below [facility] Work Phone: Comment on above: Reference Range: 32. 0 - 36.0 MCV (RBC) [Entitic vol] 92 fL 80 - 100 [facility] Work Phone: [phone] Monocytes/100 WBC (Bld) 8.0 % 2.0 - 10.0 [facility] Work Phone: [phone] Neutrophils/100 WBC (Bld) 55.2 % See Below [facility] Work Phone: Comment on above: Reference Range: 40. 0 - 80.0 Platelets (Bld) [#/Vol] 334 10*3/uL 150 - 450 [facility] Work Phone: [phone] RBC (Bld) [#/Vol] 4.34 {x10E12/L} See Below [facility] Work Phone: [phone] Comment on above: Reference Range: 4.0 0 - 5.20 WBC (Bld) [#/Vol] 7.9 10*3/uL 4.4 - 11.3 [facility] Work Phone: [phone] Complete Blood Count + Differential 0.10 {x10E9/L} See Below [facility] Work Phone: [phone] Comment on above: Reference Range: 0.0 0 - 0.10 Complete Blood Count + Differential 0.30 {x10E9/L} See Below [facility] Work Phone: [phone] Comment on above: Reference Range: 0.0 0 - 0.70 Complete Blood Count + Differential 0.60 {x10E9/L} See Below [facility] Work Phone: [phone] Comment on above: Reference Range: 0.1 0 - 1.00 Complete Blood Count + Differential 2.60 {x10E9/L} See Below [facility] Work Phone: [phone] Comment on above: Reference Range: 1.2 0 - 4.80 Complete Blood Count + Differential 4.40 {x10E9/L} See Below [facility] Work Phone: [phone] Comment on above: Reference Range: 1.2 0 - 7.70 Percent differential counts (%) should be interpreted in the context of the absolute cell counts (cells/L). Complete Blood Count + Differential 3.3 % 0.0 - 6.0 [facility] Work Phone: [phone] Complete Blood Count + Differential 0.2 {/100_WBC} [facility] Work Phone: [phone] Laboratory - Chemistry and C hemistry - challengeon 05-17-2022 Albumin BCP dye [Mass/Vol] 4.6 g/dL 3.4 - 5.0 [facility] Work Phone: [phone] ALP [Catalytic activity/Vol] 58 U/L 33 - 110 [facility] Work Phone: [phone] ALT With P-5'-P [Catalytic activity/Vol] 18 U/L 7 - 45 [facility] Work Phone: [phone] Comment on above: Patients treated wit h Sulfasalazine may generate falsely decreased results for ALT. Anion gap [Moles/Vol] 11 mmol/L 10 - 20 [facility] Work Phone: [phone] AST With P-5'-P [Catalytic activity/Vol] 15 U/L 9 - 39 [facility] Work Phone: [phone] Bilirubin [Mass/Vol] 0.5 mg/dL 0.0 - 1.2 [facility] Work Phone: [phone] Calcium [Mass/Vol] 9.5 mg/dL 8.6 - 10.3 [facility] Work Phone: [phone] Chloride [Moles/Vol] 109 mmol/L above high threshold 98 - 107 [facility] Work Phone: [phone] CO2 [Moles/Vol] 24 mmol/L 21 - 32 [facility] Work Phone: [phone] Creatinine [Mass/Vol] 0.95 mg/dL See Below [facility] Work Phone: [phone] Comment on above: Reference Range: 0.5 0 - 1.05 Glucose [Mass/Vol] 84 mg/dL 74 - 99 [facility] Work Phone: [phone] Potassium [Moles/Vol] 3.9 mmol/L 3.5 - 5.3 [facility] Work Phone: [phone] Protein [Mass/Vol] 7.8 g/dL 6.4 - 8.2 [facility] Work Phone: [phone] Sodium [Moles/Vol] 140 mmol/L 136 - 145 [facility] Work Phone: [phone] TSH Qn 0.86 m[IU]/L See Below [facility] Work Phone: [phone] Comment on above: Reference Range: 0.4 4 - 3.98 TSH testing is performed using different testing methodology at [facility] than at [facility]. Direct result comparisons should only be made within the same method. Urea nitrogen [Mass/Vol] 19 mg/dL 6 - 23 [facility] Work Phone: No Panel Informationon 05-17 84 {mL/min/1.73m2} >90 [facility] Work Phone: Comment on above: CALCULATIONS OF EVELYN MATED GFR ARE PERFORMED USING THE 2020 CKD-EPI STUDY REFIT EQUATION WITHOUT THE RACE VARIABLE FOR THE IDMS-TRACEABLE CREATININE METHODS.https://jasn.asnjournals.org/content/early/ASN .0212905847 TOBACCO SCREEN [facility] ONLYon 05-17-2022 Cotinine Screen Ql (U) Negative [facility] Work Phone: Comment on above: Cotinine, a metaboli te of nicotine, is measured to screen for nicotine exposure. The cut-off is set at 300ng/mL to detect active exposure (smoking).This test was developed and its performance characteristics were determined by the [facility]. Respirationon 01-17-2022 Heart Rate Regular -Neurology- López 170 DO Work Phone: Respiration Normal [facility] 170 DO Work Phone: PHQ-2 VITALSon 12-20-2021 Adult depression screening assessment Yes [facility] Work Phone: Adult depression screening assessment No [facility] Work Phone: Fall risk assessment a) No falls within the last year [facility] Work Phone: Tobacco use status [facility] b) No [facility] Work Phone: PHQ-2 VITALS Adult [facility] Work Phone: MRI Brain without Contraston 09-19-2021 MR Brain WO contrast Normal [facility] Work Phone: Blood Pressure Cuff Sizeon 1 10-29-2020 Fall risk assessment a) No falls within the last year [facility] Work Phone: Tobacco use status [facility] b) No [facility] Work Phone: Blood Pressure Cuff Size Adult [facility] Work Phone: Blood Pressure Cuff Sizeon 0 05-25-2021 Fall risk assessment a) No falls within the last year [facility] Work Phone: Tobacco use status [facility] b) No [facility] Work Phone: Blood Pressure Cuff Size Adult [facility] Work Phone: Complete Blood Count + Diffe rentialon 05-25-2021 Basophils/100 WBC (Bld) 0.8 % 0.0 - 2.0 [facility] Work Phone: Erythrocyte distribution width (RBC) [Ratio] 14.0 % See Below [facility] Work Phone: Comment on above: Reference Range: 11. 5 - 14.5 Hematocrit (Bld) [Volume fraction] 36.9 % See Below [facility] Work Phone: Comment on above: Reference Range: 36. 0 - 46.0 Hemoglobin (Bld) [Mass/Vol] 11.9 g/dL below low threshold See Below [facility] Work Phone: Comment on above: Reference Range: 12. 0 - 16.0 Lymphocytes/100 WBC (Bld) 22.4 % See Below [facility] Work Phone: [phone] Comment on above: Reference Range: 13. 0 - 44.0 MCHC (RBC) [Mass/Vol] 32.3 g/dL See Below [facility] Work Phone: [phone] Comment on above: Reference Range: 32. 0 - 36.0 MCV (RBC) [Entitic vol] 90 fL 80 - 100 [facility] Work Phone: [phone] Monocytes/100 WBC (Bld) 7.8 % 2.0 - 10.0 [facility] Work Phone: [phone] Neutrophils/100 WBC (Bld) 68.0 % See Below [facility] Work Phone: [phone] Comment on above: Reference Range: 40. 0 - 80.0 Platelets (Bld) [#/Vol] 335 10*3/uL 150 - 450 [facility] Work Phone: [phone] RBC (Bld) [#/Vol] 4.10 {x10E12/L} See Below [facility] Work Phone: [phone] Comment on above: Reference Range: 4.0 0 - 5.20 WBC (Bld) [#/Vol] 11.2 10*3/uL 4.4 - 11.3 [facility] Work Phone: [phone] Complete Blood Count + Differential 0.10 {x10E9/L} See Below [facility] Work Phone: [phone] Comment on above: Reference Range: 0.0 0 - 0.10 Reference Range: 0.0 0 - 0.70 Complete Blood Count + Differential 0.90 {x10E9/L} See Below [facility] Work Phone: [phone] Comment on above: Reference Range: 0.1 0 - 1.00 Complete Blood Count + Differential 2.50 {x10E9/L} See Below [facility] Work Phone: [phone] Comment on above: Reference Range: 1.2 0 - 4.80 Complete Blood Count + Differential 7.60 {x10E9/L} See Below [facility] Work Phone: [phone] Comment on above: Reference Range: 1.2 0 - 7.70 Percent differential counts (%) should be interpreted in the context of the absolute cell counts (cells/L). Complete Blood Count + Differential 1.0 % 0.0 - 6.0 [facility] Work Phone: [phone] Complete Blood Count + Differential 0.1 {/100_WBC} [facility] Work Phone: [phone] Laboratory - Chemistry and C hemistry - challengeon 05-25-2021 Albumin BCP dye [Mass/Vol] 4.4 g/dL 3.4 - 5.0 [facility] Work Phone: [phone] ALP [Catalytic activity/Vol] 60 U/L 33 - 110 [facility] Work Phone: [phone] ALT With P-5'-P [Catalytic activity/Vol] 23 U/L 7 - 45 [facility] Work Phone: [phone] Comment on above: Patients treated wit h Sulfasalazine may generate falsely decreased results for ALT. Anion gap [Moles/Vol] 13 mmol/L 10 - 20 [facility] Work Phone: [phone] AST With P-5'-P [Catalytic activity/Vol] 22 U/L 9 - 39 [facility] Work Phone: [phone] Bilirubin [Mass/Vol] 0.7 mg/dL 0.0 - 1.2 [facility] Work Phone: [phone] Calcium [Mass/Vol] 9.6 mg/dL 8.6 - 10.3 [facility] Work Phone: [phone] Chloride [Moles/Vol] 107 mmol/L 98 - 107 [facility] Work Phone: [phone] CO2 [Moles/Vol] 21 mmol/L 21 - 32 [facility] Work Phone: [phone] Creatinine [Mass/Vol] 0.95 mg/dL See Below [facility] Work Phone: [phone] Comment on above: Reference Range: 0.5 0 - 1.05 Glucose [Mass/Vol] 85 mg/dL 74 - 99 [facility] Work Phone: [phone] Potassium [Moles/Vol] 3.6 mmol/L 3.5 - 5.3 [facility] Work Phone: [phone] Protein [Mass/Vol] 7.8 g/dL 6.4 - 8.2 [facility] Work Phone: [phone] Sodium [Moles/Vol] 137 mmol/L 136 - 145 [facility] Work Phone: [phone] TSH Qn 1.34 m[IU]/L See Below [facility] Work Phone: [phone] Comment on above: Reference Range: 0.4 4 - 3.98 TSH testing is performed using different testing methodology at [facility] than at [facility]. Direct result comparisons should only be made within the same method. Urea nitrogen [Mass/Vol] 18 mg/dL 6 - 23 [facility] Work Phone: Laboratory - Coagulationon 0 05-25-2021 INR Coag (PPP) [Relative time] 1.1 {INR} 0.9 - 1.1 [facility] Work Phone: PT Coag (PPP) [Time] 13.2 s See Below -[facility] Work Phone: Comment on above: Reference Range: 10. 1 - 13.3 No Panel Informationon 05-25 >60 >60 [facility] Work Phone: Comment on above: CALCULATIONS OF EVELYN MATED GFR ARE PERFORMED USING THE MDRD STUDY EQUATION FOR THE IDMS-TRACEABLE CREATININE METHODS. CLIN CHEM 2007;53:766-72 Otheron 11-11-2020 XR Chest 2 views Interpreted by: ZHEN RODRIGUEZ11/12/20 07:16MRN: [id number] Name: JENNIFER DICK STUDY:TH CHEST 2 VIEW PA AND LAT; INDICATION:cough, covid in sep 2020. COMPARISON:01/20/2019 ORDERING CLINICIAN:EVELYN BUSCH FINDINGS:The cardiac silhouette size is within normal limits.There is mild elevation of the left hemidiaphragm. Prominentgas-filled colonic loops are visualized in the left upper quadrant ofabdomen.There is no focal consolidation, edema or pneumothorax.No sizeable pleural effusion.No acute osseous abnormality. IMPRESSION:No acute cardiopulmonary process.Electronically signed by: VILMA RODRIGUEZ 11/12/20 07:16 [facility] Work Phone: Antibody to Antiscleroderma- 70on 10-29-2020 SCL-70 extractable nuclear Ab IA Ql (S) <0.2 [facility] Work Phone: Comment on above: REF VALUES < 1.0 = N EGATIVE >=1.0 = POSITIVE Otheron 10-29-2020 Nuclear Ab Hep2 substrate Ql (S) Negative NEGATIVE [facility] Work Phone: Thyroidon 10-29-2020 TSH Qn 0.84 {mIU/L} See Below [facility] Work Phone: Comment on above: Reference Range: 0.4 4 - 3.98 TSH testing is performed using different testing methodology at [facility] than [facility]. Direct result comparisons should only be made within the same method. COVID-19, MOLECULARon 2019 SARS-COV-2 RNA (INGE) Not Detected Normal Not Detected [facility] Comment on above: Result Comment: This test was performed under the FDA's Emergency Use Authorization (EUA). Testing was performed using the Georges SARS-CoV-2 assay on the In[employer] Georges 6800 System. This test has not been approved for use in asymptomatic patients and its performance in this patient population has not been evaluated. Negative results do not rule out the presence of SARS-CoV-2/COVID-19. Fact sheets for this EUA can be found at the following links: For Healthcare Providers: https://www.fda.gov/media/856327/download For Patients: https://www.fda.gov/media/804807/download Performed By: #### L [id number] #### [facility] [address] [place] [id number] Fernando Padron M.D. [id number] COVID-19, MOLECULARon 2019 SARS-COV-2 RNA (INGE) Not Detected Normal Not Detected [facility] Comment on above: Result Comment: This test was performed under the FDA's Emergency Use Authorization (EUA). Testing was performed using the Georges SARS-CoV-2 assay on the [employer] Georges 6800 System. This test has not been approved for use in asymptomatic patients and its performance in this patient population has not been evaluated. Negative results do not rule out the presence of SARS-CoV-2/COVID-19. Fact sheets for this EUA can be found at the following links: For Healthcare Providers: https://www.fda.gov/media/320754/download For Patients: https://www.fda.gov/media/015614/download Performed By: #### L [id number] #### [facility] [address] [place] [id number] Fernando Padron M.D. [id number] XR KNEE LEFT 4+ VIEWS (SPECI FY VIEWS IN COMMENTS)on 05-06-2020 XR KNEE LEFT 4+ VIEWS (SPECIFY VIEWS IN COMMENTS) EXAMINATION: XR KNEE LEFT 4+ VIEWS (SPECIFY VIEWS IN COMMENTS) 05/06/2020 8:16 am HISTORY: ORDERING SYSTEM PROVIDED HISTORY: Pain, TECHNOLOGIST PROVIDED HISTORY: Illness/Other Reason for exam: left knee pain and popping no injury Cancer History: U Surgery, RadiationHistory: U Encounter Type: Initial Additional signs and symptoms: hx of fulkeerson osteotomy and lateral release October 2019 ORDERING SYSTEM PROVIDED DIAGNOSIS CODES: R52 Pain COMPARISON: 12/07/2019. FINDINGS: Standing AP and PA views of both knees and lateral and sunrise patellar views of the left knee were obtained. Four radiographs in total. There is no acute fracture or dislocation. Osseous structures are appropriately mineralized. Three cannulated lag screws are present in the proximal tibia. Hardware is intact. Joint spaces are preserved. No suprapatellar joint effusion. IMPRESSION: 1. No acute osseous abnormality. 2. Three cannulated lag screws are present at the proximal tibia compatible with prior osteotomy. RPS/llc Workstation ID: [id number] Dictated by: YUNIOR BENITO on SatMay 06, 2020 10:36:59 AM EDT Transcribed by: JESUS ANDREWS on SatMay 06, 2020 10:56:12 AM EDT Finalized by: YUNIOR BENITO on SatMay 06, 2020 10:59:08 AM EDT Normal [facility] Comment on above: Order Comment: Injur y/Trauma or Illness?:Illness/Other How long have you had these symptoms (acute/chronic)?:Chronic Reason for exam?:left knee pain and popping no injury History of cancer?:U Surgeries, chemotherapy, or radiation?:U Type of Exam?:Initial Additional signs and symptoms?:hx of fulkeerson osteotomy and lateral release October 2019 POC , Urineon 10-22 HCG ( test) Ql (U) Negative Negative [facility] Internal Control Pass [facility] Interpretation and review of laboratory results Normal [facility] Specific gravity (U) [Rel density] [facility] XR OR Knee Left 1-2 Viewson 10-22-2019 Intraoperative localization for screw-fixated osteotomy in the proximal tibia. KAY/silverio Workstation ID: [id number] [facility] EXAMINATION: XR OR K NEE LEFT 1-2 VIEWS HISTORY: ORDERING SYSTEM PROVIDED HISTORY: OSTEOTOMY, TECHNOLOGIST PROVIDED HISTORY: Injury/Trauma Reason for exam: osteotomy L knee Encounter Type: Initial Mechanism of injury: u Fluoro dose in mGy: 1.9 ORDERING SYSTEM PROVIDED DIAGNOSIS CODES: Z98.890 S/P arthroscopic surgery of left knee M22.2X2 Patellofemoral pain syndrome of left knee M22.2X2 Patellofemoral pain syndrome of left knee COMPARISON: 08/27/2019. TECHNIQUE: Fluoro dose in Ka,r mGy: 1.9 2 images. FINDINGS: Intraoperative images demonstrating cannulated screw placement in proximal tibia. [facility] Interface, Rad In Fu ji Speechq - 10/22/2019 9:51 AM EST EXAMINATION: XR OR KNEE LEFT 1-2 VIEWS HISTORY: ORDERING SYSTEM PROVIDED HISTORY: OSTEOTOMY, TECHNOLOGIST PROVIDED HISTORY: Injury/Trauma Reason for exam: osteotomy L knee Encounter Type: Initial Mechanism of injury: u Fluoro dose in mGy: 1.9 ORDERING SYSTEM PROVIDED DIAGNOSIS CODES: Z98.890 S/P arthroscopic surgery of left knee M22.2X2 Patellofemoral pain syndrome of left knee M22.2X2 Patellofemoral pain syndrome of left knee COMPARISON: 08/27/2019. TECHNIQUE: Fluoro dose in Ka,r mGy: 1.9 2 images. FINDINGS: Intraoperative images demonstrating cannulated screw placement in proximal tibia. IMPRESSION: Intraoperative localization for screw-fixated osteotomy in the proximal tibia. KAY/jw Workstation ID: [id number] [facility] CBCon 09-23-2019 Erythrocyte distribution width (RBC) [Ratio] 12.6 % Normal 11.5 - 14.5 [facility] Comment on above: Performed By: #### C BC #### [address] [address] Hematocrit (Bld) [Volume fraction] 36.8 % Normal 36.0 - 46.0 [facility] Comment on above: Performed By: #### C BC #### [address] [address] Hemoglobin (Bld) [Mass/Vol] 11.5 g/dL Low 12.0 - 16.0 [facility] Comment on above: Performed By: #### C BC #### [address] [address] MCHC (RBC) [Mass/Vol] 31.3 g/dL Low 32.0 - 36.0 [facility] Comment on above: Performed By: #### C BC #### [address] [address] MCV (RBC) [Entitic vol] 92 fL Normal 80 - 100 [facility] Comment on above: Performed By: #### C BC #### [address] [place] [address] Nucleated RBC/100 WBC (Bld) [Ratio] 0.0 /100 WBC Normal 0.0 - 0.0 [facility] Comment on above: Performed By: #### C BC #### [address] [address] Platelets (Bld) [#/Vol] 316 10*3/uL Normal 150 - 450 [facility] Comment on above: Performed By: #### C BC #### [address] [address] RBC (Bld) [#/Vol] 4.02 x10E12/L Normal 4.00 - 5.20 [facility] Comment on above: Performed By: #### C BC #### [address] [address] WBC (Bld) [#/Vol] 8.5 10*3/uL Normal 4.4 - 11.3 [facility] Comment on above: Performed By: #### C BC #### [address] [address] COMPREHENSIVE PANELon 2018 Albumin [Mass/Vol] 4.4 g/dL Normal 3.4 - 5.0 [facility] Comment on above: Performed By: #### C MP #### [address] [address] ALP [Catalytic activity/Vol] 53 U/L Normal 33 - 110 [facility] Comment on above: Performed By: #### C MP #### [address] [address] ALT [Catalytic activity/Vol] 17 U/L Normal 7 - 45 [facility] Comment on above: Result Comment: Tori ents treated with Sulfasalazine may generate falsely decreased results for ALT. Performed By: #### C MP #### [address] [address] Anion gap [Moles/Vol] 12 mmol/L Normal 10 - 20 [facility] Comment on above: Performed By: #### C MP #### [address] [address] AST [Catalytic activity/Vol] 17 U/L Normal 9 - 39 [facility] Comment on above: Performed By: #### C MP #### [address] [address] Bilirubin [Mass/Vol] 0.3 mg/dL Normal 0.0 - 1.2 [facility] Comment on above: Performed By: #### C MP #### [address] [address] Calcium [Mass/Vol] 9.5 mg/dL Normal 8.6 - 10.3 [facility] Comment on above: Performed By: #### C MP #### [address] [address] Chloride [Moles/Vol] 108 mmol/L High 98 - 107 [facility] Comment on above: Performed By: #### C MP #### [address] [address] Creatinine [Mass/Vol] 0.94 mg/dL Normal 0.50 - 1.05 [facility] Comment on above: Performed By: #### C MP #### [address] [address] GFR- AM. >60 Normal >60 [facility] Comment on above: Result Comment: CALC ULATIONS OF ESTIMATED GFR ARE PERFORMED USING THE MDRD STUDY EQUATION FOR THE IDMS-TRACEABLE CREATININE METHODS. CLIN CHEM 2007;53:766-72 Performed By: #### C MP #### [address] [address] GFR-NON AM. >60 Normal >60 [facility] Comment on above: Performed By: #### C MP #### [address] [address] Glucose [Mass/Vol] 106 mg/dL High 74 - 99 [facility] Comment on above: Performed By: #### C MP #### [address] [address] HCO3 (Bld) [Moles/Vol] 25 mmol/L Normal 21 - 32 [facility] Comment on above: Performed By: #### C MP #### [address] [address] Potassium [Moles/Vol] 3.9 mmol/L Normal 3.5 - 5.3 [facility] Comment on above: Performed By: #### C MP #### [address] [address] Protein [Mass/Vol] 7.8 g/dL Normal 6.4 - 8.2 [facility] Comment on above: Performed By: #### C MP #### [address] [address] Sodium [Moles/Vol] 141 mmol/L Normal 136 - 145 [facility] Comment on above: Performed By: #### C MP #### [address] [address] Urea nitrogen [Mass/Vol] 22 mg/dL Normal 6 - 23 [facility] Comment on above: Performed By: #### C MP #### [address] [address] TSH WITH REFLEX TO FREE T4 I F ABNORMALon 09-23-2019 TSH Qn 3.17 m[IU]/L Normal 0.44 - 3.98 [facility] Comment on above: Result Comment: TSH testing is performed using different testing methodology at [facility] than [facility]. Direct result comparisons should only be made within the same method. Performed By: #### T HYDS #### [address] [address] TTG AB,IGAon 09-23-2019 TTG AB,IGA <1 Normal 0 - 14 [facility] Comment on above: Result Comment: Rita ac disease is unlikely. False negative Tissue Transglutaminase Antibody, IgA results can occur in approximately 10% of patients with celiac disease, patients already adhering to a gluten-free diet, or patients with IgA deficiency. Performed By: #### T TGA #### [facility] [address] [place] [address] Lab Miscellaneouson 06-30-20 19 Status See Ref Lab Report Normal [facility] Comment on above: Performed By: #### 2 [id number] #### [employer] [address] [place] [address] Status See Ref Lab Report Normal [facility] Comment on above: Performed By: #### 2 [id number] #### [employer] [address] [place] [address] Status See Ref Lab Report Normal [facility] Comment on above: Performed By: #### 2 [id number] #### [employer] [address] [place] [address] Status See Ref Lab Report Normal [facility] Comment on above: Performed By: #### 2 [id number] #### [employer] [address] [place] [address] Status See Ref Lab Report Normal [facility] Comment on above: Performed By: #### 2 [id number] #### [employer] [address] [place], [place] [id number] Antinuclear Antibody Screeno n 06-29-2019 AMIE Direct Positive Abnormal Negative [facility] Comment on above: Result Comment: Perf ormed At: [facility] [address] [id number] Gregorio Walker PhD Ph:[phone] Performed By: #### 2 [id number] #### [employer] [address] [place] [address] NM Hepatobiliary Duct System Imaging w/EFon 06-29-2019 NM Hepatobiliary Duct System Imaging w/EF Exam Date/Time: 06/29/2019 13:36 EDT Reason for Exam: ABD PAIN GODWIN COLORED FECES;Abdominal pain Report STUDY: NM Hepatobiliary Duct System Imaging w/EF; 06/29/2019 1:36 pm INDICATION: Abdominal pain. Right upper quadrant abdominal pain COMPARISON: None. ACCESSION NUMBER(S): [id number] ORDERING CLINICIAN: Evelyn Busch TECHNIQUE: DIVISION OF NUCLEAR MEDICINE HEPATOBILIARY SCAN (HIDA), QUANTITATIVE The patient received an intravenous dose of 5.2 mCi of Tc-99m mebrofenin (Choletec). Sequential images of the upper abdomen were then acquired over the next 60 minutes. An intravenous infusion of the cholecystokinin (CCK) analogue, Sincalide, was then administered followed by an additional period of imaging. Computer quantification of gallbladder emptying was also performed FINDINGS: There is prompt accumulation of activity within the liver and normal subsequent excretion via the biliary ductal system into the small bowel. The gallbladder visualizes promptly after radiopharmaceutical injection and progressively fills. After Sincalide administration, there is prompt contraction of the gallbladder with further anterograde transit of activity into the small bowel. The gallbladder ejection fraction is calculated to be 82 % (normal above 38%). IMPRESSION: Normal hepatobiliary imaging with no sign of cystic duct obstruction or biliary dyskinesia. Images were interpreted at [facility]. FINAL REPORT Dictated: 06/29/2019 1:41 pm Shantal Salmeron MD Signed (Electronic Signature): 06/29/2019 1:41 pm Signed by: Shantal Salmeron MD Technologist: KW [facility] RF Quanton 06-27-2019 RA Latex Turbid <10.0 Normal 0.0-13.9 [facility] Comment on above: Result Comment: Perf ormed At: CB [facility] [address] [id number] Gregorio Walker PhD Ph:[phone] Performed By: #### 2 [id number] #### [facility] [employer] [address] [place] [address] Lab Miscellaneouson 06-25-20 Test Name anti sci [address] [facility] Comment on above: Performed By: #### 2 [id number] #### [facility] [employer] [address] [place] [address] Test Name misc [facility] Comment on above: Performed By: #### 2 [id number] #### [facility] [employer] [address] [place] [address] Test Name allergy profile [facility] Comment on above: Performed By: #### 2 [id number] #### [facility] [employer] [address] [place] [address] Test Name sandra [facility] Comment on above: Performed By: #### 2 [id number] #### [facility] [employer] [address] [place] [address] Test Name anti-ccp [facility] Comment on above: Performed By: #### 2 [id number] #### [facility] [employer] [address] [place], [place] [id number] US Abdomen, Limitedon 2018 US Abdomen, Limited Exam Date/Time: 06/24/2019 08:10 EDT Reason for Exam: ABD PAIN RUQ ATTN: RUQ;Abdominal pain Report STUDY: US Abdomen, Limited; 06/24/2019 8:10 am INDICATION: 23 y/o F with Abdominal pain. COMPARISON: None. ACCESSION NUMBER(S): [id number] ORDERING CLINICIAN: Evelyn Busch TECHNIQUE: Routine ultrasound of the abdomen was performed. Static images were obtained for remote interpretation. FINDINGS: LIVER: Craniocaudal length: 17 cm, Within normal limits of size for age Echogenicity: Normal. Mass: A 1 cm hyperechoic mass in the right hepatic lobe, may represent hepatic hemangioma. BILE DUCTS: Intrahepatic ducts: Non-dilated Common bile duct diameter: 2 mm GALLBLADDER: Gallbladder: Normal. Gallstones: None. Gallbladder sludge: None. Gallbladder wall thickening: None. Pericholecystic fluid: None. PANCREAS: Visualized portions are unremarkable. RIGHT KIDNEY: Craniocaudal length: 10.2 cm, Within normal limits of size for age. No hydronephrosis, hydroureter or focal renal lesion. IMPRESSION: Exam Date/Time: 06/24/2019 08:10 EDT Report 1 cm hyperechoic right hepatic mass, may represent hepatic hemangioma. FINAL REPORT Dictated: 06/24/2019 8:17 am Funmilayo Johnson MD Signed (Electronic Signature): 06/24/2019 8:17 am Signed by: Funmilayo Johnson MD Technologist: COTY Normal [facility] CMPon 06-22-2019 Albumin [Mass/Vol] 4.5 g/dL Normal 3.4-5.0 [facility] Comment on above: Performed By: #### 2 [id number] #### [facility] [employer] [facility] [place] [address] Albumin/Globulin [Mass ratio] 1.4 {ratio} Normal 1.1-1.9 [facility] Comment on above: Performed By: #### 2 [id number] #### [facility] [employer] [address] [place] [address]200 Alk Phos 64 Int._Unit/L Normal 33-110 [facility] Comment on above: Performed By: #### 2 293466 #### [facility] [employer] [address] [place] [address] 25030 ALT [Catalytic activity/Vol] 51 Int._Unit/L High 7-45 [facility] Comment on above: Performed By: #### 2 [id number] #### [facility] [employer] [address] [place] [address] 05177 Anion gap [Moles/Vol] 12 mmol/L Normal 10-20 [facility] Comment on above: Performed By: #### 2 740616 #### [facility] [employer] [address] [place], [place] [phone] AST [Catalytic activity/Vol] 28 Int._Unit/L Normal 9-39 [facility] Comment on above: Performed By: #### 2 626848 #### [facility] [employer] [address] [place] [address] 45471 Bili Total 0.30 mg/dL Normal 0.00-1.20 [facility] Comment on above: Performed By: #### 2 811506 #### [facility] [employer] [address] [place] [address]687 Calcium [Mass/Vol] 9.4 mg/dL Normal 8.6-10.3 [facility] Comment on above: Performed By: #### 2 208111 #### [facility] [employer] [address] [place] [address] 65430 Chloride [Moles/Vol] 105 mmol/L Normal 98-[address] [facility] Comment on above: Performed By: #### 2 838934 #### [facility] [employer] [address] [place] [address] 11933 CO2 [Moles/Vol] 25.0 mmol/L Normal 21.0-32.0 [facility] Comment on above: Performed By: #### 2 672699 #### [facility] [employer] [address] [place] [address] 26128 Creatinine [Mass/Vol] 0.9 mg/dL Normal 0.5-1.1 [facility] Comment on above: Performed By: #### 2 568447 #### [facility] [employer] [address] [place] [address] 28190 Globulin (S) [Mass/Vol] 3.0 g/dL Normal 2.0-4.0 [facility] Comment on above: Performed By: #### 2 618772 #### [facility] [employer] [address] [place] [address] 96906 Glucose [Mass/Vol] 80 mg/dL Normal 70-99 [facility] Comment on above: Performed By: #### 2 210906 #### [facility] [employer] [address] [place] [address] 92691 Potassium [Moles/Vol] 3.7 mmol/L Normal 3.5-5.3 [facility] Comment on above: Performed By: #### 2 511567 #### [facility] [employer] [address] [place] [address] 08971 Protein [Mass/Vol] 7.8 g/dL Normal 6.4-8.2 [facility] Comment on above: Performed By: #### 2 137742 #### [facility] [employer] [address] [place] [address] 30612 Sodium [Moles/Vol] 138 mmol/L Normal 136-145 [facility] Comment on above: Performed By: #### 2 093280 #### [facility] [employer] [address] [place] [address] 82065 Urea nitrogen [Mass/Vol] 16 mg/dL Normal 6-23 [facility] Comment on above: Performed By: #### 2 405012 #### [facility] [employer] [address] [place] [address] 56325 Urea nitrogen/Creatinine [Mass ratio] 17.8 ratio Normal 5.4-30.0 [facility] Comment on above: Performed By: #### 2 714093 #### [facility] [employer] [address] [place] [address] 41444 eGFRon 06-22-2019 GFR/1.73 sq M predicted among non-blacks MDRD (S/P/Bld) [Vol rate/Area] mL/min/{1.73_m2} Normal [facility] Comment on above: Order Comment: Order added by Discern Expert. Performed By: #### 2 [id number] #### [facility] [employer] [address] [place] [address] Sed Rate Automatedon 019 Sed Rate Automated 24 mm/hr Normal [facility] Comment on above: Result Comment: AGE- SPECIFIC REFERENCE RANGES FOR SEDIMENTATION RATE AUTOMATED REFERENCE RANGE - MM/HR AGE MEN WOMEN 0-2 0-2 - PUBERTY 3-13 3-13 PUBERTY - 50 YRS 0-15 0-20 > 50 YRS 0-20 0-30 Performed By: #### 2 [id number] #### [facility] [employer] [address] [place] [address] GENERAL PROCEDUREon 04-22-20 19 Tate Cesar DO 04/22/2019 11:33 AM Study: EMG/NCV Date: 04/22/19 Patient Name: Jennifer Dick Patient : 1995 Preliminary Impression: 1. Normal study Final, full report to be scanned as soon as possible. [facility] MRA Head w/o Contraston 03-08 MRA Head w/o Contrast Exam Date/Time: 03/30/2019 16:57 EDT Reason for Exam: SEVERE HEADACHE SHARP STABBING PAINS R/O ANEURYSM HEAD PAIN ARM AND LEG WEAKNESS Report STUDY: MRA Head w/o Contrast; 03/30/2019 4:57 pm INDICATION: SEVERE HEADACHE SHARP STABBING PAINS R/O ANEURYSM HEAD PAIN ARM AND LEG WEAKNESS. COMPARISON: None. ACCESSION NUMBER(S): [id number] ORDERING CLINICIAN: Italia Mcmillan TECHNIQUE: [id number] MRA of the head was performed. The images were reviewed as source images and maximum intensity projections. FINDINGS: There is no evidence of aneurysm, focal stenosis, or major branch occlusion. IMPRESSION: Unremarkable examination. FINAL REPORT Dictated: 03/31/2019 9:00 am Shantal Weaver MD Signed (Electronic Signature): 03/31/2019 9:00 am Signed by: Shantal Weaver MD Technologist: TASHIA Normal [facility] MRI Spine Cervical w/o Contr sourav 03-31-2019 MRI Spine Cervical w/o Contrast Exam Date/Time: 03/30/2019 16:57 EDT Reason for Exam: SEVERE HEADACHE SHARP STABBING PAINS R/O ANEURYSM HEAD PAIN ARM AND LEG WEAKNESS Report STUDY: MRI Spine Cervical w/o Contrast; 03/30/2019 4:57 pm INDICATION: SEVERE HEADACHE SHARP STABBING PAINS R/O ANEURYSM HEAD PAIN ARM AND LEG WEAKNESS. COMPARISON: None. ACCESSION NUMBER(S): [id number] ORDERING CLINICIAN: Italia Mcmillan TECHNIQUE: Sagittal T1, T2, STIR, axial T1 and axial T2 weighted images were acquired through the cervical spine. FINDINGS: The alignment of the cervical vertebrae is normal. Marrow signal is within normal limits. Signal intensity within the cervical cord is normal. There is no significant extrinsic impingement upon the cervical neural canal or neural foramina. IMPRESSION: Unremarkable examination. FINAL REPORT Dictated: 03/31/2019 9:02 am Shantal Weaver MD Signed (Electronic Signature): 03/31/2019 9:02 am Signed by: Shantal Weaver MD Technologist: DC [facility] Sed Rate Automatedon 019 Sed Rate Automated 38 mm/hr [facility] Comment on above: Result Comment: AGE- SPECIFIC REFERENCE RANGES FOR SEDIMENTATION RATE AUTOMATED REFERENCE RANGE - MM/HR AGE MEN WOMEN 0-2 0-2 - PUBERTY 3-13 3-13 PUBERTY - 50 YRS 0-15 0-20 > 50 YRS 0-20 0-30 Performed By: #### 2 [id number] #### [facility] [employer] [address] [place] [address]8821 C Urineon 02-13-2019 C Urine Final Report: >100,0 00 cfu/ml Escherichia coli ORGANISM: EC SUSCEPTIBILITY RESULTS Antibiotic ALMITA Dilutn ALMITA Interp ORGANISM: EC Amox/Cla : <=8/4 S Amp : <=8 S Amp/Sul : <=8/4 S Cefaz : <=8 S Cefo : <=2 S Cipro : <=1 S Gent : <=4 S Levo : <=2 S Cristi : <=1 S Nitro : <=32 S Pip/Milind : <=16 S Tetra : <=4 S Tobra : <=4 S SXT : <=2/[address] [facility] Comment on above: Performed By: #### 2 [id number] #### [facility] [address] [place] [address] UA Completeon 02-11-2019 Color (U) Yellow Normal Yellow [facility] Comment on above: Performed By: #### 2 856604 #### [facility] [address] [place] [address] Glucose (U) [Mass/Vol] Negative Normal Negative [facility] Comment on above: Performed By: #### 2 499382 #### [facility] [address] [place] [address] Ketones Ql (U) Negative Normal Negative [facility] Comment on above: Performed By: #### 2 638085 #### [facility] [address] [place] [address] RBC (U) [#/Vol] 20-50 Abnormal 0-3 [facility] Comment on above: Performed By: #### 2 086854 #### [facility] [address] [place] [address] UA Blood 2+ Abnormal Negative [facility] Comment on above: Performed By: #### 2 747502 #### [facility] [address] [place] [address] UA Bacteria 3+ /HPF Abnormal None [facility] Comment on above: Performed By: #### 2 190260 #### [facility] [address] [place] [address] UA Clarity Cloudy Abnormal Clear [facility] Comment on above: Performed By: #### 2 081562 #### [facility] Rem[facility] [address] [place] [address] UA Leuk Est 2+ Abnormal Negative [facility] Comment on above: Performed By: #### 2 386817 #### [facility] [address] [place] [id number] UA Mucous Occasional Abnormal Trace [facility] Comment on above: Performed By: #### 2 924359 #### [facility] [address] [place] [phone] UA Nitrite Positive Abnormal Negative [facility] Comment on above: Performed By: #### 2 161087 #### [facility] [address] [place] [address] UA pH 6.0 Normal 4.6-8.0 [facility] Comment on above: Performed By: #### 2 073752 #### [facility] [address] [place] [id number] UA Protein 1+ Abnormal Negative [facility] Comment on above: Performed By: #### 2 112120 #### [facility] [address] [place] [id number] UA Spec Grav 1.026 Normal 1.003-1.030 [facility] Comment on above: Performed By: #### 2 284778 #### [facility] [address] [place] [address] UA Squam Epithelial 0-5 Normal 0-5 [facility] Comment on above: Performed By: #### 2 739831 #### [facility] [place] [address] UA Urobilinogen Negative Normal [facility] Comment on above: Result Comment: Due to a manufacturing issue, low positive urobilinogen results may be fasely positive. Correlate with urine bilirubin and additional clinical/laboratory findings to assess the risk of hemolytic anemia or liver disease. If clinically indicated, repeat testing with an alternate method is available by contacting the laboratory within 24 hours. Performed By: #### 2 056312 #### [facility] [place] [id number] UA WBC >50 Abnormal 0-5 [facility] Comment on above: Performed By: #### 2 350270 #### [facility] [address] [place] [address] Urobilinogen Qn (U) Negative Normal Negative [facility] Comment on above: Performed By: #### 2 209295 #### [facility] [address] [place], [place] [address] MRI Brain w/o Contraston MRI Brain w/o Contrast Exam Date/Time: 01/29/2019 18:04 EDT Reason for Exam: MIGRAINE NEAR SYNCOPE;Headache Report STUDY: MRI Brain w/o Contrast; 01/29/2019 6:04 pm INDICATION: Headache. COMPARISON: None. ACCESSION NUMBER(S): [id number] ORDERING CLINICIAN: Evelyn Busch TECHNIQUE: The brain was studied in the sagittal, axial and coronal planes utilizing FLAIR, T1 and T2 weighted images. FINDINGS: There is a normal-size ventricular system. There is no evidence of intracranial mass or extra- axial collection. The skull base, paranasal sinuses and orbital structures are unremarkable. Diffusion weighted images and associated ADC maps of the brain were unremarkable. There is no evidence of diffusion restriction to suggest the presence of acute infarction. Gradient echo T2 weighted images fail to demonstrate hemosiderin deposition or other evidence of hemorrhage. IMPRESSION: *There is no evidence of mass, infarction or hemorrhage. THIS EXAMINATION WAS INTERPRETED AT [facility] FINAL REPORT Dictated: 01/30/2019 8:26 am Donny Gurrola MD Signed (Electronic Signature): 01/30/2019 8:26 am Signed by: Donny Gurrola MD Technologist: TASHIA Normal [facility] Auto Diffon 01-20-2019 Basophils (Bld) [#/Vol] 0.1 E3/mcL Normal 0.0-0.2 [facility] Comment on above: Order Comment: Order Added by Discern Expert. Performed By: #### 2 [id number] #### [facility] [address] [place] [address] Basophils/100 WBC (Bld) 0.7 % Normal 0.0-2.0 [facility] Comment on above: Order Comment: Order Added by Discern Expert. Performed By: #### 2 520865 #### [facility] [address] [place] [address] Eos Absolute 0.6 E3/mcL Normal 0.0-0.7 [facility] Comment on above: Order Comment: Order Added by Discern Expert. Performed By: #### 2 513019 #### [facility] Rem[facility] [address] [place] [address] Eosinophils/100 WBC (Bld) 5.1 % Normal 0.0-11.0 [facility] Comment on above: Order Comment: Order Added by Discern Expert. Performed By: #### 2 411781 #### [facility] [address] [place] [address] Lymphocytes (Bld) [#/Vol] 3.1 E3/mcL Normal 1.2-3.4 [facility] Comment on above: Order Comment: Order Added by Discern Expert. Performed By: #### 2 673206 #### [facility] [address] [place] [address] Lymphocytes/100 WBC (Bld) 27.4 % Normal 20.0-55.0 [facility] Comment on above: Order Comment: Order Added by Discern Expert. Performed By: #### 2 158154 #### [facility] Rem[facility] [address] [place] [address] Vance Absolute 0.6 E3/mcL Normal 0.0-0.7 [facility] Comment on above: Order Comment: Order Added by Discern Expert. Performed By: #### 2 354254 #### [facility] [address] [place] [address] Monocytes/100 WBC (Bld) 5.3 % Normal 0.0-10.0 [facility] Comment on above: Order Comment: Order Added by Discern Expert. Performed By: #### 2 059982 #### [facility] Rem[facility] [address] [place] [address] Neutro Absolute 6.9 E3/mcL High 1.4-6.5 [facility] Comment on above: Order Comment: Order Added by Discern Expert. Performed By: #### 2 588581 #### [facility] Rem[facility] [address] [place] [address] Neutro Auto 61.5 % Normal 37.0-75.0 [facility] Comment on above: Order Comment: Order Added by Discern Expert. Performed By: #### 2 785884 #### [facility] Rem[facility] [address] [place] [address] BMPon 01-20-2019 Anion gap [Moles/Vol] 12 mmol/L Normal 10-20 [facility] Comment on above: Performed By: #### 2 995175 #### [facility] [address] [place] [address] Calcium [Mass/Vol] 9.3 mg/dL Normal 8.6-10.3 [facility] Comment on above: Performed By: #### 2 465912 #### [facility] [address] [place] [address] Chloride [Moles/Vol] 104 mmol/L Normal 98-[address] [facility] Comment on above: Performed By: #### 2 808399 #### [facility]to [address] [place] [address] CO2 [Moles/Vol] 26.0 mmol/L Normal 21.0-32.0 [facility] Comment on above: Performed By: #### 2 963763 #### [facility] [address] [place] [address] Creatinine [Mass/Vol] 0.9 mg/dL Normal 0.5-1.1 [facility] Comment on above: Performed By: #### 2 558017 #### [facility] [address] [place] [address] Glucose [Mass/Vol] 87 mg/dL Normal 70-99 [facility] Comment on above: Performed By: #### 2 795860 #### [facility] Scotto [facility] [place] [address] Potassium [Moles/Vol] 4.0 mmol/L Normal 3.5-5.3 [facility] Comment on above: Performed By: #### 2 966931 #### [facility] [address] [place] [address] Sodium [Moles/Vol] 138 mmol/L Normal 136-145 [facility] Comment on above: Performed By: #### 2 218295 #### [facility] [address] [place] [address] Urea nitrogen [Mass/Vol] 21 mg/dL Normal 6-23 [facility] Comment on above: Performed By: #### 2 071684 #### [facility] [address] [place] [address] Urea nitrogen/Creatinine [Mass ratio] 23.3 ratio Normal 5.4-30.0 [facility] Comment on above: Performed By: #### 2 831888 #### [facility]ont[facility] [address] [place] [address] CBC w/ Auto Diffon 9 Erythrocyte distribution width (RBC) [Ratio] 13.0 % Normal 11.5-14.5 [facility] Comment on above: Performed By: #### 2 602963 #### [facility] Dumont[facility]emo [facility] [place] [address] Hematocrit (Bld) [Volume fraction] 37.7 % Normal 36.0-48.0 [facility] Comment on above: Performed By: #### 2 692196 #### [facility] Dumont[facility]emo [facility] [place] [address] Hemoglobin (Bld) [Mass/Vol] 12.4 g/dL Normal 12.0-16.0 [facility] Comment on above: Performed By: #### 2 031992 #### [facility] Dumont[facility]emo [facility] [place] [address] MCH (RBC) [Entitic mass] 29.8 pg Normal 27.0-31.0 [facility] Comment on above: Performed By: #### 2 643136 #### [facility]ont[facility] [address] [place] [address] MCHC (RBC) [Mass/Vol] 33.0 g/dL Normal 33.0-37.0 [facility] Comment on above: Performed By: #### 2 331394 #### [facility]ont[facility] [address] [place] [address] MCV (RBC) [Entitic vol] 90.3 fL Normal 78.0-100.0 [facility] Comment on above: Performed By: #### 2 124410 #### [facility] JuliaHemo [facility] [place] [address] Platelet mean volume (Bld) [Entitic vol] 8.8 fL Normal 7.4-11.0 [facility] Comment on above: Performed By: #### 2 694816 #### [facility] RemHemo [address] [place] [address] Platelets (Bld) [#/Vol] 317 E3/mcL Normal 130-400 [facility] Comment on above: Performed By: #### 2 356099 #### [facility] RemHemo [address] [place] [address] RBC (Bld) [#/Vol] 4.18 E6/mcL Normal 3.90-5.40 [facility] Comment on above: Performed By: #### 2 836621 #### [facility] DumontHemo [facility] [place] [address] WBC (Bld) [#/Vol] 11.3 E3/mcL High 3.6-11.0 [facility] Comment on above: Performed By: #### 2 [id number] #### [facility] Scotto [address] [place] [address] D-Dimeron 01-20-2019 D-Dimer <215.00 Normal <=500.00 [facility] Comment on above: Result Comment: When the concentration of D-dimer is below the expansion joint builder's cutoff, 500 ng/mL FEU, it may be possible to exclude the diagnosis of DVT and PE in conjunction with a clinical pretest probability assessment. Performed By: #### 2 [id number] #### [facility] Scotto [address] [place] [address] Magnesiumon 01-20-2019 Magnesium [Mass/Vol] 2.1 mg/dL Normal 1.6-2.[address] [facility] Comment on above: Performed By: #### 2 234459 #### [facility] ELENAMichael DumontHemo [address] [place] [address] Troponin-Ion 01-20-2019 Troponin I.cardiac [Mass/Vol] ng/mL Normal .00-.03 [facility] Comment on above: Performed By: #### 2 814627 #### [facility] DumontHemo [address] [place] [address] U BhCG Qlton 01-20-2019 HCG.beta subunit Qn Negative Normal Neg [facility] Comment on above: Performed By: #### 2 386308 #### [facility]ont[facility]emo [address] [place] [address] UA Completeon 01-20-2019 Color (U) Yellow Normal Yellow [facility] Comment on above: Performed By: #### 2 [id number] #### [facility] E[facility]NA DumontHemo [address] [place] [address] Glucose (U) [Mass/Vol] Negative Normal Negative [facility] Comment on above: Performed By: #### 2 123544 #### [facility] RemHemo [address] [place] [address] Ketones Ql (U) Negative Normal Negative [facility] Comment on above: Performed By: #### 2 674009 #### LUZ ELENAMichael DumontHemo [address] [place] [address] RBC (U) [#/Vol] 20-50 Abnormal 0-3 [facility] Comment on above: Performed By: #### 2 245818 #### [facility] RemHemo [address] [place] [address] UA Blood 3+ Normal Negative [facility] Comment on above: Performed By: #### 2 643395 #### [facility] RemHemo [address] [place] [address] UA Clarity SltCloudy Abnormal Clear [facility] Comment on above: Performed By: #### 2 623537 #### [facility] RemHemo [address] [place] [address] UA Leuk Est Negative Normal Negative [facility] Comment on above: Performed By: #### 2 113336 #### [facility] RemHemo [address] [place] [address] UA Mucous Few Abnormal Trace [facility] Comment on above: Performed By: #### 2 852770 #### [facility] E[facility] RemHemo [address] [place] [address] UA Nitrite Negative Normal Negative [facility] Comment on above: Performed By: #### 2 078681 #### [facility] RemHemo [address] [place] [address] UA pH 6.0 Normal 4.6-8.0 [facility] Comment on above: Performed By: #### 2 551919 #### [facility] RemHemo [address] [place] [address] UA Protein Negative Normal Negative [facility] Comment on above: Performed By: #### 2 504864 #### [facility] RemHemo [address] [place] [address] UA Spec Grav 1.028 Normal 1.003-1.030 [facility] Comment on above: Performed By: #### 2 360337 #### [facility]NA [facility] [address] [place] [address] UA Squam Epithelial 0-5 Normal 0-5 [facility] Comment on above: Performed By: #### 2 [id number] #### LUZ ELENA [facility] [address] [place] [address] UA Urobilinogen Negative Normal [facility] Comment on above: Result Comment: Due to a manufacturing issue, low positive urobilinogen results may be fasely positive. Correlate with urine bilirubin and additional clinical/laboratory findings to assess the risk of hemolytic anemia or liver disease. If clinically indicated, repeat testing with an alternate method is available by contacting the laboratory within 24 hours. Performed By: #### 2 [id number] #### LUZ ELENA [facility] [address] [place] [address] UA WBC 0-5 Normal 0-5 [facility] Comment on above: Performed By: #### 2 [id number] #### LUZ ELENA DumontHemo [facility] [place] [address] Urobilinogen Qn (U) Negative Normal Negative [facility] Comment on above: Performed By: #### 2 [id number] #### LUZ ELENA [address]ont[facility]emo [address] [place] [address] XR Chest AP Portableon 01-20 XR Chest AP Portable Exam Date/Time: 01/20/2019 19:52 EDT Reason for Exam: Chest pain Report STUDY: XR Chest AP Portable; 01/20/2019 7:52 pm INDICATION: Chest pain. COMPARISON: None. ACCESSION NUMBER(S): [id number] ORDERING CLINICIAN: Mayra Navarrete FINDINGS: Single portable AP view of the chest was obtained. There is no focal consolidation, sizeable pleural effusion, or pneumothorax. The cardiomediastinal silhouette is within normal limits. No acute osseous abnormality. IMPRESSION: 1. No evidence of acute cardiopulmonary process. FINAL REPORT Dictated: 01/20/2019 8:15 pm Ale Raymond MD Signed (Electronic Signature): 01/20/2019 8:15 pm Signed by: Ale Raymond MD Technologist: [facility] Normal [facility] eGFRon 01-20-2019 GFR/1.73 sq M predicted among non-blacks MDRD (S/P/Bld) [Vol rate/Area] mL/min/{1.73_m2} Normal [facility] Comment on above: Order Comment: Order Added by Discern Expert. Performed By: #### 2 [id number] #### LUZ ELENA [facility] [address] [place] [address] IGP W/hpv Rfx [id number] 12-26 Diagnosis: See Ref Lab Report Normal [facility] Comment on above: Order Comment: LMP: 12/15/18 Performed By: #### 1 [id number] #### LUZ ELENA Send Outs Subsection [facility] [id number] Pathology ([facility])on 12-19-2018 Pathology ([facility]) FINAL GYNECOLOGIC CYTOLOGY REPORT [id number] SPECIMEN ADEQUACY Satisfactory for Evaluation. No endocervical cells/transformation zone component present. Excessive cytolysis in sample. Sample is obscured by: Lubricant/Foreign material Blood GENERAL CATEGORIZATION Negative for Intraepithelial Lesion or Malignancy COMMENT Sample has been treated with glacial acetic acid for excessive blood, debris, inflammation and/or lubricant. CLINICAL HISTORY LMP: 12/15/2018 SPECIMEN (A) SCREENING CERVICAL/ENDOCERVICAL THIN PREP VIAL Performed at [facility], [address] [address] Screened by: Signed Out by: DAMARIS STEELE Flume Maker Reported: 12/25/2018 Normal [facility] Comment on above: Performed By: #### G YN #### [facility] [address] [place] [address] Auto Diffon 09-16-2018 Basophils (Bld) [#/Vol] 0.1 E3/mcL Normal 0.0-0.2 [facility] Comment on above: Order Comment: Order Added by Discern Expert. Performed By: #### 2 [id number] #### LUZ ELENA [facility] [address] [place] [address] Basophils/100 WBC (Bld) 0.7 % Normal 0.0-2.0 [facility] Comment on above: Order Comment: Order Added by Discern Expert. Performed By: #### 2 [id number] #### LUZ ELENA [facility] [address] [place] [address] Eos Absolute 0.2 E3/mcL Normal 0.0-0.7 [facility] Comment on above: Order Comment: Order Added by Discern Expert. Performed By: #### 2 [id number] #### LUZ ELENA [facility] [address] [place] [address] Eosinophils/100 WBC (Bld) 2.0 % Normal 0.0-11.0 [facility] Comment on above: Order Comment: Order Added by Discern Expert. Performed By: #### 2 [id number] #### LUZ ELENA [facility] [address] [place] [address] Lymphocytes (Bld) [#/Vol] 4.0 E3/mcL High 1.2-3.4 [facility] Comment on above: Order Comment: Order Added by Discern Expert. Performed By: #### 2 [id number] #### LUZ ELENA [facility] [address] [place] [address] Lymphocytes/100 WBC (Bld) 35.6 % Normal 20.0-55.0 [facility] Comment on above: Order Comment: Order Added by Discern Expert. Performed By: #### 2 [id number] #### LU ZELENA [facility] [address] [place] [address] Vance Absolute 0.8 E3/mcL High 0.0-0.7 [facility] Comment on above: Order Comment: Order Added by Discern Expert. Performed By: #### 2 [id number] #### LUZ ELENA [facility] [address] [place] [address] Monocytes/100 WBC (Bld) 7.1 % Normal 0.0-10.0 [facility] Comment on above: Order Comment: Order Added by Discern Expert. Performed By: #### 2 [id number] #### LUZ ELENA [facility] [address] [place] [address] Neutro Absolute 6.1 E3/mcL Normal 1.4-6.5 [facility] Comment on above: Order Comment: Order Added by Discern Expert. Performed By: #### 2 [id number] #### LUZ ELENA [facility] [address] [place] [address] Neutro Auto 54.6 % Normal 37.0-75.0 [facility] Comment on above: Order Comment: Order Added by Discern Expert. Performed By: #### 2 [id number] #### LUZ ELENA DumontHemo [address] [place] [address] CBC w/ Auto Diffon Erythrocyte distribution width (RBC) [Ratio] 13.2 % Normal 11.5-14.5 [facility] Comment on above: Performed By: #### 2 [id number] #### LUZ ELENA DumontHemo [facility] [place] [address] Hematocrit (Bld) [Volume fraction] 36.7 % Normal 36.0-48.0 [facility] Comment on above: Performed By: #### 2 [id number] #### LUZ ELENA DumontHemo [facility] [place] [address] Hemoglobin (Bld) [Mass/Vol] 12.0 g/dL Normal 12.0-16.0 [facility] Comment on above: Performed By: #### 2 [id number] #### LUZ ELENA DumontHemo [address] [place], [place] [id number] MCH (RBC) [Entitic mass] 29.7 pg Normal 27.0-31.0 [facility] Comment on above: Performed By: #### 2 [id number] #### LUZ ELENA DumontHemo [address] [place], [place] [id number] MCHC (RBC) [Mass/Vol] 32.6 g/dL Low 33.0-37.0 [facility] Comment on above: Performed By: #### 2 [id number] #### LUZ ELENA DumontHemo [address] [place] [address] MCV (RBC) [Entitic vol] 91.2 fL Normal 78.0-100.0 [facility] Comment on above: Performed By: #### 2 [id number] #### LUZ ELENA DmuontHemo [address] [place] [address] Platelet mean volume (Bld) [Entitic vol] 8.9 fL Normal 7.4-11.0 [facility] Comment on above: Performed By: #### 2 [id number] #### LUZ ELENA DumontHemo [address] [place] [address] Platelets (Bld) [#/Vol] 351 E3/mcL Normal 130-400 [facility] Comment on above: Performed By: #### 2 [id number] #### LUZ ELENA [facility] [address] [place] [address] RBC (Bld) [#/Vol] 4.03 E6/mcL Normal 3.90-5.40 [facility] Comment on above: Performed By: #### 2 [id number] #### LUZ ELENA [facility] [address] [place] [address] WBC (Bld) [#/Vol] 11.1 E3/mcL High 3.6-11.0 [facility] Comment on above: Performed By: #### 2 [id number] #### LUZ ELENA Rem[facility] [address] [place] [address] CMPon 09-16-2018 Albumin [Mass/Vol] 4.3 g/dL Normal 3.4-5.0 [facility] Comment on above: Performed By: #### 2 [id number] #### LUZ ELENA [employer] [address] [place], [place] [address] Albumin/Globulin [Mass ratio] 1.1 {ratio} Normal 1.1-1.9 [facility] Comment on above: Performed By: #### 2 [id number] #### [facility] [employer] [address] [place] [address] Alk Phos 44 Int._Unit/L Normal 33-110 [facility] Comment on above: Performed By: #### 2 [id number] #### LUZ ELENA [employer] [address] [place] [address] ALT [Catalytic activity/Vol] 13 Int._Unit/L Normal 7-45 [facility] Comment on above: Performed By: #### 2 [id number] #### LUZ ELENA [employer] [address] [place] [address] Anion gap [Moles/Vol] 11 mmol/L Normal 10-20 [facility] Comment on above: Performed By: #### 2 [id number] #### LUZ ELENA [employer] [address] [place] [address] AST [Catalytic activity/Vol] 16 Int._Unit/L Normal 9-39 [facility] Comment on above: Performed By: #### 2 [id number] #### LUZ ELENA [employer] [address] [place] [address] Bili Total 0.67 mg/dL Normal 0.00-1.20 [facility] Comment on above: Performed By: #### 2 [id number] #### LUZ ELENA [employer] [address] [place] [address] Calcium [Mass/Vol] 9.9 mg/dL Normal 8.6-10.3 [facility] Comment on above: Performed By: #### 2 [id number] #### LUZ ELENA [employer] [address] [place] [address] Chloride [Moles/Vol] 104 mmol/L Normal 98-[address] [facility] Comment on above: Performed By: #### 2 [id number] #### [facility] [employer] [address] [place] [address] 35001 CO2 [Moles/Vol] 26.0 mmol/L Normal 21.0-32.0 [facility] Comment on above: Performed By: #### 2 [id number] #### LUZ ELENA [employer] [address] [place] [address]44 Creatinine [Mass/Vol] 0.8 mg/dL Normal 0.5-1.1 [facility] Comment on above: Performed By: #### 2 [id number] #### [facility] [employer] [address] [place] [address] Globulin (S) [Mass/Vol] 4.0 g/dL Normal 2.0-4.0 [facility] Comment on above: Performed By: #### 2 [id number] #### [facility] [employer] [address] [place] [address] Glucose [Mass/Vol] 89 mg/dL Normal 70-99 [facility] Comment on above: Performed By: #### 2 [id number] #### [facility] [employer] [address] [place] [address]883 Potassium [Moles/Vol] 4.0 mmol/L Normal 3.5-5.3 [facility] Comment on above: Performed By: #### 2 [id number] #### [facility] [employer] [address] [place] [address]78 Protein [Mass/Vol] 8.2 g/dL Normal 6.4-8.2 [facility] Comment on above: Performed By: #### 2 [id number] #### LUZ ELENA [employer] [address] [place] [address] Sodium [Moles/Vol] 137 mmol/L Normal 136-145 [facility] Comment on above: Performed By: #### 2 [id number] #### LUZ ELENA [employer] [address] [place] [address] Urea nitrogen [Mass/Vol] 20 mg/dL Normal 6-23 [facility] Comment on above: Performed By: #### 2 [id number] #### LUZ ELENA [employer] [address] [place] [address] Urea nitrogen/Creatinine [Mass ratio] 25.0 ratio Normal 5.4-30.0 [facility] Comment on above: Performed By: #### 2 [id number] #### LUZ ELENA [employer] [address] [place] [address] [id number] 09-16-2018 HbA1c (Bld) [Mass fraction] 5.3 % Normal 4.0-6.3 [facility] Comment on above: Performed By: #### 3 [id number] #### LUZ ELENA Chemistry Manual Subsection [address] [place] [address] TSHon 09-16-2018 TSH Qn 4.05 mcIU/mL Normal 0.30-5.60 [facility] Comment on above: Performed By: #### 2 [id number] #### LUZ ELENA [employer] [address] [place] [address] eGFRon 09-16-2018 GFR/1.73 sq M predicted among non-blacks MDRD (S/P/Bld) [Vol rate/Area] mL/min/{1.73_m2} Normal [facility] Comment on above: Order Comment: Order added by Discern Expert. Performed By: #### 1 [id number] #### LUZ ELENA [employer] [address] [place] [address] XR Knee Left 4+ Views (Note in Comments)on 12-30-2017 XR Knee Left 4+ Views (Note in Comments) X-ray of the left knee 4 views standing AP 45 PA standing lateral merchant film reveal an apparently normal-appearing left knee Invalid Interpretation Code [employer] [facility] Vital Signs Date Time Vital Sign Value Performing Clinician Facility 06-11-2025 07:34-0400 Body mass index (BMI) [Ratio] 41.02 kg/m2 Lorraine Roldan SCRIPT GIRL.CNM Work Phone: [facility] 06-11-2025 07:34-0400 Body weight 108.41 kg Lorraine Roldan SCRIPT GIRL.CNM Work Phone: [facility] 06-11-2025 07:34-0400 Diastolic blood pressure 74 mm[Hg] Lorraine Roldan SCRIPT GIRL.CNM Work Phone: [facility] 06-11-2025 07:34-0400 Systolic blood pressure 108 mm[Hg] Lorraine Roldan APRN.CNM Work Phone: [facility] 06-04-2025 08:26-0400 Body mass index (BMI) [Ratio] 41.02 kg/m2 Taylor Wooten APRN.NAILER OPERATOR Work Phone: [facility] 06-04-2025 08:26-0400 Body weight 108.4 kg Taylor Wooten APRN.NAILER OPERATOR Work Phone: [facility] 06-04-2025 08:26-0400 Heart rate 107 /min Taylor Wooten APRN.NAILER OPERATOR Work Phone: [facility] 06-04-2025 08:26-0400 SaO2% (BldA) [Mass fraction] 98 % Taylor Wooten APRN.NAILER OPERATOR Work Phone: [facility] 04-16-2025 08:54-0400 Body mass index (BMI) [Ratio] 38.72 kg/m2 Lorraine Roldan SCRIPT GIRL.CNM Work Phone: [facility] 04-16-2025 08:54-0400 Body weight 102.33 kg Lorraine Roldan APRN.CNM Work Phone: [facility] 04-16-2025 08:54-0400 Diastolic blood pressure 62 mm[Hg] Lorraine Roldan SCRIPT GIRL.CNM Work Phone: [facility] 04-16-2025 08:54-0400 Systolic blood pressure 110 mm[Hg] Lorraine Roldan APRN.CNM Work Phone: [facility] 03-23-2025 12:00-0400 Diastolic blood pressure 65 mm[Hg] Kai Vera DO Work Phone: [facility] 03-23-2025 12:00-0400 Heart rate 81 /min Kai Vera DO Work Phone: [facility] 03-23-2025 12:00-0400 Respiratory rate 17 /min Kai Vera DO Work Phone: [facility] 03-23-2025 12:00-0400 SaO2% (BldA) [Mass fraction] 99 % Kai Vera DO Work Phone: [facility] 03-23-2025 12:00-0400 Systolic blood pressure 98 mm[Hg] Kai Vera DO Work Phone: [facility] 03-23-2025 10:03-0400 Body height 162.6 cm Kai Vera DO Work Phone: [facility] 03-23-2025 10:03-0400 Body mass index (BMI) [Ratio] 37.42 kg/m2 Kai Vera DO Work Phone: [facility] 03-23-2025 10:03-0400 Body temperature 98.29 [degF] Kai Vera DO Work Phone: [facility] 03-23-2025 10:03-0400 Body weight 98.88 kg Kai Vera DO Work Phone: [facility] 03-19-2025 09:06-0400 Body mass index (BMI) [Ratio] 37.42 kg/m2 Lorraine Roldan APRN.CNM Work Phone: [facility] 03-19-2025 09:06-0400 Body weight 98.88 kg Lorraine Roldan APRN.CNM Work Phone: [facility] 03-19-2025 09:06-0400 Diastolic blood pressure 70 mm[Hg] Lorraine Roldan SCRIPT GIRL.CNM Work Phone: [facility] 03-19-2025 09:06-0400 Systolic blood pressure 108 mm[Hg] Lorraine Roldan SCRIPT GIRL.CNM Work Phone: [facility] 03-03-2025 11:47-0400 Body mass index (BMI) [Ratio] 37.63 kg/m2 Chrissie Hadaniele SCRIPT GIRL.NAILER OPERATOR Work Phone: [facility] 03-03-2025 11:47-0400 Body weight 99.43 kg Chrissie Haury SCRIPT GIRL.NAILER OPERATOR Work Phone: [facility] 03-03-2025 11:47-0400 Diastolic blood pressure 70 mm[Hg] Chrissie Haury SCRIPT GIRL.NAILER OPERATOR Work Phone: [facility] 03-03-2025 11:47-0400 Systolic blood pressure 118 mm[Hg] Chrissie Haury SCRIPT GIRL.NAILER OPERATOR Work Phone: [facility] 12-30-2024 08:16-0400 Body height 162.6 cm Evelyn Oberhauser DO Work Phone: [facility] 12-30-2024 08:16-0400 Body mass index (BMI) [Ratio] 36.73 kg/m2 Evelyn Oberhauser DO Work Phone: [facility] 12-30-2024 08:16-0400 Body weight 97.07 kg Evelyn Oberhauser DO Work Phone: [facility] 12-30-2024 08:16-0400 Diastolic blood pressure 63 mm[Hg] Evelyn Oberhauser DO Work Phone: [facility] 12-30-2024 08:16-0400 Heart rate 83 /min Evelyn Oberhauser DO Work Phone: [facility] 12-30-2024 08:16-0400 Systolic blood pressure 112 mm[Hg] Evelyn Nesstashia DO Work Phone: [facility] 11-20-2024 07:25-0500 Body height 161.3 cm Alba [place] SCRIPT GIRL.NAILER OPERATOR Work Phone: [facility] 11-20-2024 07:25-0500 Body mass index (BMI) [Ratio] 38.01 kg/m2 Alba Briseyda SCRIPT GIRL.NAILER OPERATOR Work Phone: [facility] 11-20-2024 07:25-0500 Body weight 98.88 kg Alba [place] SCRIPT GIRL.NAILER OPERATOR Work Phone: [facility] 11-20-2024 07:25-0500 Diastolic blood pressure 82 mm[Hg] Alba [place] SCRIPT GIRL.NAILER OPERATOR Work Phone: [facility] 11-20-2024 07:25-0500 Systolic blood pressure 124 mm[Hg] Alba Briseyda SCRIPT GIRL.NAILER OPERATOR Work Phone: [facility] 10-23-2024 08:27-0500 Body height 162.6 cm Tammy Simeon SCRIPT GIRL-NAILER OPERATOR Work Phone: [facility] 10-23-2024 08:27-0500 Body mass index (BMI) [Ratio] 38.11 kg/m2 Tammy Simeon SCRIPT GIRL-NAILER OPERATOR Work Phone: [facility] 10-23-2024 08:27-0500 Body weight 100.7 kg Tammy Simeon SCRIPT GIRL-NAILER OPERATOR Work Phone: [facility] 10-23-2024 08:27-0500 Diastolic blood pressure 81 mm[Hg] Tammy Simeon SCRIPT GIRL-NAILER OPERATOR Work Phone: [facility] 10-23-2024 08:27-0500 Heart rate 98 /min Tammy Simeon SCRIPT GIRL-NAILER OPERATOR Work Phone: [facility] 10-23-2024 08:27-0500 Systolic blood pressure 123 mm[Hg] Tammy Simeon SCRIPT GIRL-NAILER OPERATOR Work Phone: [facility] 04-17-2024 09:27-0400 Body height 162.6 cm Tammy Simeon SCRIPT GIRL-NAILER OPERATOR Work Phone: [facility] 04-17-2024 09:27-0400 Body mass index (BMI) [Ratio] 36.99 kg/m2 Tammy Simeon SCRIPT GIRL-NAILER OPERATOR Work Phone: [facility] 04-17-2024 09:27-0400 Body weight 97.75 kg Tammy Simeon SCRIPT GIRL-NAILER OPERATOR Work Phone: [facility] 04-17-2024 09:27-0400 Diastolic blood pressure 73 mm[Hg] Tammy Sami SCRIPT GIRL-NAILER OPERATOR Work Phone: [facility] 04-17-2024 09:27-0400 Heart rate 75 /min Tammy Simeon SCRIPT GIRL-NAILER OPERATOR Work Phone: [facility] 04-17-2024 09:27-0400 Systolic blood pressure 108 mm[Hg] Tamym Sami SCRIPT GIRL-NAILER OPERATOR Work Phone: [facility] 03-10-2024 15:46-0400 Body height 162.6 cm Ghulam Renteria MD Work Phone: [facility] 03-10-2024 15:46-0400 Body mass index (BMI) [Ratio] 36.39 kg/m2 Ghulam Renteria MD Work Phone: [facility] 03-10-2024 15:46-0400 Body temperature 98.2 [degF] Ghulam Renteria MD Work Phone: [facility] 03-10-2024 15:46-0400 Body weight 96.16 kg Ghulam Renteria MD Work Phone: [facility] 03-10-2024 15:46-0400 Diastolic blood pressure 64 mm[Hg] Ghulam Renteria MD Work Phone: [facility] 03-10-2024 15:46-0400 Heart rate 88 /min Ghulam Renteria MD Work Phone: [facility] 03-10-2024 15:46-0400 Systolic blood pressure 98 mm[Hg] Ghulam Renteria MD Work Phone: [facility] 02-26-2024 09:43-0400 Body height 162.6 cm Sanya Yasmeen PA-C Work Phone: [facility] 02-26-2024 09:43-0400 Body mass index (BMI) [Ratio] 36.05 kg/m2 Sanya Yasmeen PA-C Work Phone: [phone] [place] [address] 02-26-2024 09:43-0400 Body temperature 98.6 [degF] Sanya Yasmeen PA-C Work Phone: [phone]([phone] [place] [address] 02-26-2024 09:43-0400 Body weight 95.25 kg Sanya Yasmeen PA-C Work Phone: [facility] 02-26-2024 09:43-0400 Diastolic blood pressure 79 mm[Hg] Sanya Yasmeen PA-C Work Phone: [facility] 02-26-2024 09:43-0400 Heart rate 77 /min Sanya Yasmeen PA-C Work Phone: [facility] 02-26-2024 09:43-0400 Respiratory rate 16 /min Sanya Yasmeen PA-C Work Phone: [facility] 02-26-2024 09:43-0400 SaO2% (BldA) [Mass fraction] 98 % Sanya Yasmeen PA-C Work Phone: [facility] 02-26-2024 09:43-0400 Systolic blood pressure 111 mm[Hg] Sanya Yasmeen PA-C Work Phone: 3(944)[phone] [place] [address] 10-02-2023 09:29-0500 Body height 162.6 cm Gus Newbill PA-C Work Phone: [facility] 10-02-2023 09:29-0500 Body mass index (BMI) [Ratio] 35.82 kg/m2 Gus Newbill PA-C Work Phone: [facility] 10-02-2023 09:29-0500 Body temperature 97.3 [degF] Gus Newbill PA-C Work Phone: [facility] 10-02-2023 09:29-0500 Body weight 94.67 kg Gus Newbill PA-C Work Phone: [facility] 10-02-2023 09:29-0500 Diastolic blood pressure 82 mm[Hg] Gus Newbill PA-C Work Phone: [facility] 10-02-2023 09:29-0500 Heart rate 115 /min Gus Newbill PA-C Work Phone: [facility] 10-02-2023 09:29-0500 Systolic blood pressure 132 mm[Hg] Gus Newbill PA-C Work Phone: [facility] 09-25-2023 11:50-0500 Diastolic blood pressure 87 mm[Hg] Evelyn Del Rio MD Work Phone: [facility] 09-25-2023 11:50-0500 Heart rate 54 /min Evelyn Del Rio MD Work Phone: [facility] 09-25-2023 11:50-0500 Respiratory rate 14 /min Evelyn Del Rio MD Work Phone: [facility] 09-25-2023 11:50-0500 SaO2% (BldA) [Mass fraction] 97 % Evelyn Del Rio MD Work Phone: [facility] 09-25-2023 11:50-0500 Systolic blood pressure 116 mm[Hg] Evelyn Del Rio MD Work Phone: [facility] 09-25-2023 09:43-0500 Body temperature 97.9 [degF] Evelyn Del Rio MD Work Phone: [facility] 09-25-2023 06:21-0500 Body height 163 cm Evelyn Del Rio MD Work Phone: [facility] 09-25-2023 06:21-0500 Body mass index (BMI) [Ratio] 36.09 kg/m2 Evelyn Del Rio MD Work Phone: [facility] 09-25-2023 06:21-0500 Body weight 95.9 kg Evelyn Del Rio MD Work Phone: [facility] 09-05-2023 14:07-0500 Body height 162.6 cm Evelyn Del Rio MD Work Phone: [phone] [place] [address] 09-05-2023 14:07-0500 Body mass index (BMI) [Ratio] 37.14 kg/m2 Evelyn Del Rio MD Work Phone: [facility] 09-05-2023 14:07-0500 Body weight 98.16 kg Evelyn Del Rio MD Work Phone: [facility] 09-05-2023 14:07-0500 Diastolic blood pressure 68 mm[Hg] Evelyn Del Rio MD Work Phone: [facility] 09-05-2023 14:07-0500 Heart rate 80 /min Evelyn Del Rio MD Work Phone: [facility] 09-05-2023 14:07-0500 Systolic blood pressure 112 mm[Hg] Evelyn Del Rio MD Work Phone: [facility] 08-06-2023 15:55-0400 Body height 162.6 cm Gus Bradley PA-C Work Phone: [facility] 08-06-2023 15:55-0400 Body mass index (BMI) [Ratio] 35.94 kg/m2 Gus GUERREOR-C Work Phone: [facility] 08-06-2023 15:55-0400 Body temperature 98.01 [degF] Gus Newbill PA-C Work Phone: [facility] 08-06-2023 15:55-0400 Body weight 94.97 kg Gus Newbill PA-C Work Phone: [facility] 08-06-2023 15:55-0400 Diastolic blood pressure 81 mm[Hg] Gus Newbill PA-C Work Phone: [facility] 08-06-2023 15:55-0400 Heart rate 71 /min Gus Newbill PA-C Work Phone: [facility] 08-06-2023 15:55-0400 Systolic blood pressure 114 mm[Hg] Gus Newbill PA-C Work Phone: [facility] 07-06-2023 10:40-0400 Body height Memo Quigley Other [facility] Other 07-06-2023 10:40-0400 Body mass index (BMI) [Ratio] 36.9 kg/m2 Memo Quigley Other [facility] Other 07-06-2023 10:40-0400 Body temperature 98.4 [degF] Memo Quigley Other [facility] Other 07-06-2023 10:40-0400 Body weight 97.52 kg Memo Quigley Other [facility] Other 07-06-2023 10:40-0400 Respiratory rate 20 /min Memo Quigley Other [facility] Other 07-06-2023 10:40-0400 SaO2% (BldA) [Mass fraction] 98 % Memo Dann Other [facility] [employer] Other 07-05-2023 14:03-0400 Body height 162.56 cm Evelyn Wiseerhauser Work Phone: NS-Wrvkqgrix-Tdjadwu e B 101 DO Work Phone: 07-05-2023 14:03-0400 Body mass index (BMI) [Ratio] 36.9 kg/m2 Evelyn Longo Oberhauser Work Phone: OO-Fykzstbms-Ppqhgwu e B 101 DO Work Phone: 07-05-2023 14:03-0400 Body surface area Derived from formula 2.02 m2 Evelyn Longo Oberhauser Work Phone: OX-Syuqbypqs-Ywtoasl e B 101 DO Work Phone: 07-05-2023 14:03-0400 Body weight 97.52 kg Evelyn Wiseerhauser Work Phone: AS-Wuamzujln-Wuhhuns e B 101 DO Work Phone: 07-05-2023 14:03-0400 Diastolic blood pressure 62 mm[Hg] Evelyn Longo Oberhauser Work Phone: BQ-Nxuyjaikf-Qedffvv e B 101 DO Work Phone: 07-05-2023 14:03-0400 Heart rate 97 /min Evelyn Longo Oberhauser Work Phone: NJ-Quuqxfkyw-Jlnjgnj e B 101 DO Work Phone: 07-05-2023 14:03-0400 Systolic blood pressure 133 mm[Hg] Evelyn L Oberhauser Work Phone: AJ-Pdllnwwyd-Caqfzyv e B 101 DO Work Phone: 06-19-2023 15:13-0400 Body temperature 98.8 [degF] Evelyn L Oberhauser Work Phone: LR-Fvbpxblde-Qjznpl 170 Work Phone: 06-19-2023 15:13-0400 Diastolic blood pressure 85 mm[Hg] Evelyn L Oberhauser Work Phone: RW-Vczflzaxg-Jjaisu 170 Work Phone: 06-19-2023 15:13-0400 Heart rate 83 /min Evelyn L Oberhauser Work Phone: ZT-Bcwqulrjz-Xnfmjy 170 Work Phone: 06-19-2023 15:13-0400 Systolic blood pressure 132 mm[Hg] Evelyn L Oberhauser Work Phone: RD-Wtxfgwhtk-Qbrwlb 170 Work Phone: 01-17-2023 08:58-0400 Body height 162.56 cm Evelyn L Oberhauser Work Phone: OB-Vqtzvntfl-Oxjxfvp e B 101 Work Phone: 01-17-2023 08:58-0400 Body mass index (BMI) [Ratio] 35.25 kg/m2 Evelyn L Oberhauser Work Phone: KA-Zcvjheggd-Hvapwzh e B 101 Work Phone: 01-17-2023 08:58-0400 Body surface area Derived from formula 1.98 m2 Evelyn L Oberhauser Work Phone: KX-Ynwopjtrt-Edlzrnq e B 101 Work Phone: 01-17-2023 08:58-0400 Body weight 93.15 kg Evelyn L Oberhauser Work Phone: KP-Kivfxkqxy-Shlajph e B 101 Work Phone: 01-17-2023 08:58-0400 Diastolic blood pressure 74 mm[Hg] Evelyn L Oberhauser Work Phone: DK-Xcxpzadwy-Djrmsoz e B 101 Work Phone: 01-17-2023 08:58-0400 Systolic blood pressure 122 mm[Hg] Evelyn L Oberhauser Work Phone: VX-Jxeojkgut-Fizdtlf e B 101 Work Phone: 01-04-2023 14:53-0400 Body height 162.56 cm Evelyn Longo Oberhauser Work Phone: FR-Wnnrygxql-Kbmuptm e B 101 Work Phone: 01-04-2023 14:53-0400 Body mass index (BMI) [Ratio] 31.76 kg/m2 Evelyn Longo Oberhauser Work Phone: RL-Xlraiiiqq-Eydvnnh e B 101 Work Phone: 01-04-2023 14:53-0400 Body surface area Derived from formula 1.89 m2 Evelyn Wiseerhauser Work Phone: AS-Voqzhgdcu-Hkonysc e B 101 Work Phone: 01-04-2023 14:53-0400 Body weight 83.92 kg Evelyn Wiseerhauser Work Phone: FM-Bhgcriljd-Udtqkad e B 101 Work Phone: 01-04-2023 14:53-0400 Diastolic blood pressure 71 mm[Hg] Evelyn L Oberhauser Work Phone: HR-Huhxtqmec-Mbxfasb e B 101 Work Phone: 01-04-2023 14:53-0400 Heart rate 61 /min Evelyn L Oberhauser Work Phone: KA-Ydpswsdjz-Wivdnjb e B 101 Work Phone: 01-04-2023 14:53-0400 Systolic blood pressure 120 mm[Hg] Evelyn L Oberhauser Work Phone: SR-Wgszxkgnw-Hkgefjo e B 101 Work Phone: 12-06-2022 10:50-0500 Body height 162.56 cm Evelyn L Oberhauser Work Phone: [address] Work Phone: 12-06-2022 10:50-0500 Body mass index (BMI) [Ratio] 34.97 kg/m2 Evelyn L Oberhauser Work Phone: [address] Work Phone: 12-06-2022 10:50-0500 Body surface area Derived from formula 1.97 m2 Evelyn L Oberhauser Work Phone: [address] Work Phone: 12-06-2022 10:50-0500 Body weight 92.4 kg Evelyn L Oberhauser Work Phone: [address] Work Phone: 12-06-2022 10:50-0500 Diastolic blood pressure 64 mm[Hg] Evelyn L Oberhauser Work Phone: [address] Work Phone: 12-06-2022 10:50-0500 Systolic blood pressure 108 mm[Hg] Evelyn L Oberhauser Work Phone: [address] Work Phone: 10-10-2022 10:30-0500 Body height 162.56 cm Evelyn L Oberhauser Work Phone: [facility] Work Phone: 10-10-2022 10:30-0500 Body mass index (BMI) [Ratio] 33.82 kg/m2 Evelyn L Oberhauser Work Phone: [facility] Work Phone: 10-10-2022 10:30-0500 Body surface area Derived from formula 1.94 m2 Evelyn L Oberhauser Work Phone: [facility] Work Phone: 10-10-2022 10:30-0500 Body weight 89.36 kg Evelyn L Oberhauser Work Phone: [facility] Work Phone: 10-10-2022 10:30-0500 Diastolic blood pressure 79 mm[Hg] Evelyn L Oberhauser Work Phone: [facility] Work Phone: 10-10-2022 10:30-0500 Heart rate 83 /min Evelyn L Oberhauser Work Phone: [facility] Work Phone: 10-10-2022 10:30-0500 Systolic blood pressure 112 mm[Hg] Evelyn L Oberhauser Work Phone: [facility] Work Phone: 10-02-2022 08:15-0500 Diastolic blood pressure 62 mm[Hg] Evelyn Oberhauser Other Phone: [facility] 10-02-2022 08:15-0500 Heart rate 74 /min Evelyn Oberhauser Other Phone: [facility] 10-02-2022 08:15-0500 Respiratory rate 20 /min Evelyn Oberhauser Other Phone: [facility] 10-02-2022 08:15-0500 SaO2% (BldA) [Mass fraction] 100 % Evelyn Oberhauser Other Phone: [facility] 10-02-2022 08:15-0500 Systolic blood pressure 106 mm[Hg] Evelyn Oberhauser Other Phone: [facility] 10-02-2022 05:26-0500 Body height 162.5 cm Evelyn Oberhauser Other Phone: [facility] 10-02-2022 05:26-0500 Body temperature 98.06 [degF] Evelyn Oberhauser Other Phone: [facility] 10-02-2022 05:26-0500 Body weight 84 kg Evelyn Oberhauser Other Phone: [facility] 08-15-2022 13:12-0500 Body height 162.56 cm Evelyn L Oberhauser Work Phone: JC-Ozvyeopdh-Ifgbkq 170 DO Work Phone: 08-15-2022 13:12-0500 Body mass index (BMI) [Ratio] 33.47 kg/m2 Evelyn L Oberhauser Work Phone: WT-Vqbqqrzug-Peekdg 170 DO Work Phone: 08-15-2022 13:12-0500 Body surface area Derived from formula 1.94 m2 Evelyn L Oberhauser Work Phone: XW-Yjdcwklyg-Qpchst 170 DO Work Phone: 08-15-2022 13:12-0500 Body temperature 97.5 [degF] Evelyn L Oberhauser Work Phone: LP-Ffrlnfblx-Jyicll 170 DO Work Phone: 08-15-2022 13:12-0500 Body weight 88.45 kg Evelyn L Oberhauser Work Phone: FC-Feybvypiy-Poclfv 170 DO Work Phone: 08-15-2022 13:12-0500 Diastolic blood pressure 70 mm[Hg] Evelyn L Oberhauser Work Phone: RS-Zrtpwtwoz-Eiozeu 170 DO Work Phone: 08-15-2022 13:12-0500 Heart rate 76 /min Evelyn L Oberhauser Work Phone: XE-Dhxxzuwae-Dktenc 170 DO Work Phone: 08-15-2022 13:12-0500 Respiratory rate 16 /min Evelyn L Oberhauser Work Phone: HM-Yfmocvzhv-Hgkluo 170 DO Work Phone: 08-15-2022 13:12-0500 Systolic blood pressure 101 mm[Hg] Evelyn L Oberhauser Work Phone: NF-Jkmbikrdh-Zbgsgj 170 DO Work Phone: 07-19-2022 11:42-0400 Body height 162.56 cm Evelyn L Oberhauser Work Phone: [facility] Work Phone: 07-19-2022 11:42-0400 Body mass index (BMI) [Ratio] 33.52 kg/m2 Evelyn L Oberhauser Work Phone: [facility] Work Phone: 07-19-2022 11:42-0400 Body surface area Derived from formula 1.94 m2 Evelyn L Oberhauser Work Phone: [facility] Work Phone: 07-19-2022 11:42-0400 Body weight 88.59 kg Evelyn L Oberhauser Work Phone: [facility] Work Phone: 07-19-2022 11:42-0400 Diastolic blood pressure 74 mm[Hg] Evelyn L Oberhauser Work Phone: [facility] Work Phone: 07-19-2022 11:42-0400 Heart rate 65 /min Evelyn L Oberhauser Work Phone: [facility] Work Phone: 07-19-2022 11:42-0400 SaO2% (BldA) [Mass fraction] 98 % Evelyn L Oberhauser Work Phone: [facility] Work Phone: 07-19-2022 11:42-0400 Systolic blood pressure 106 mm[Hg] Evelyn L Oberhauser Work Phone: [facility] Work Phone: 06-14-2022 11:20-0400 Body height 162.56 cm Evelyn L Oberhauser Work Phone: [facility] Work Phone: 06-14-2022 11:20-0400 Body mass index (BMI) [Ratio] 33.53 kg/m2 Evelyn L Oberhauser Work Phone: [facility] Work Phone: 06-14-2022 11:20-0400 Body surface area Derived from formula 1.94 m2 Evelyn Longo Oberhauser Work Phone: [facility] Work Phone: 06-14-2022 11:20-0400 Body weight 88.6 kg Evelyn Longo Oberhauser Work Phone: [place] [address] [place] Work Phone: 06-14-2022 11:20-0400 Diastolic blood pressure 62 mm[Hg] Evelyn Longo Oberhauser Work Phone: [facility] Work Phone: 06-14-2022 11:20-0400 Systolic blood pressure 112 mm[Hg] Evelyn L Oberhauser Work Phone: [employer] Work Phone: 05-29-2022 20:00-0400 Diastolic blood pressure 65 mm[Hg] Evelyn Oberhauser Other Phone: [facility] 05-29-2022 20:00-0400 Heart rate 90 /min Evelyn Oberhauser Other Phone: [facility] 05-29-2022 20:00-0400 Respiratory rate 16 /min Evelyn Oberhauser Other Phone: [facility] 05-29-2022 20:00-0400 SaO2% (BldA) [Mass fraction] 100 % Evelyn Oberhauser Other Phone: [facility] 05-29-2022 20:00-0400 Systolic blood pressure 103 mm[Hg] Evelyn Oberhauser Other Phone: [facility] 05-29-2022 17:29-0400 Body temperature 98.78 [degF] Evelyn Oberhauser Other Phone: [facility] 05-29-2022 17:29-0400 Body weight 84 kg Evelyn Oberhauser Other Phone: [facility] 05-17-2022 08:58-0400 Body height 162.56 cm Evelyn L Oberhauser Work Phone: [facility] Work Phone: 05-17-2022 08:58-0400 Body mass index (BMI) [Ratio] 32.79 kg/m2 Evelyn L Oberhauser Work Phone: [facility] Work Phone: 05-17-2022 08:58-0400 Body surface area Derived from formula 1.92 m2 Evelyn L Oberhauser Work Phone: [facility] Work Phone: 05-17-2022 08:58-0400 Body weight 86.64 kg Evelyn L Oberhauser Work Phone: [facility] Work Phone: 05-17-2022 08:58-0400 Diastolic blood pressure 75 mm[Hg] Evelyn L Oberhauser Work Phone: [facility] Work Phone: 05-17-2022 08:58-0400 Heart rate 76 /min Evelyn L Oberhauser Work Phone: [facility] Work Phone: 05-17-2022 08:58-0400 Systolic blood pressure 111 mm[Hg] Evelyn L Oberhauser Work Phone: [facility] Work Phone: 01-17-2022 13:02-0400 Body temperature 97.7 [degF] Evelyn L Oberhauser Work Phone: TG-Zipsdvivb-Ridhxi 170 DO Work Phone: 01-17-2022 13:02-0400 Diastolic blood pressure 64 mm[Hg] Evelyn L Oberhauser Work Phone: BY-Xsmuwjmnh-Wfyhmk 170 DO Work Phone: 01-17-2022 13:02-0400 Heart rate 79 /min Evelyn L Oberhauser Work Phone: NV-Wkaaikipn-Fwpvtb 170 DO Work Phone: 01-17-2022 13:02-0400 Respiratory rate 16 /min Evelyn L Oberhauser Work Phone: KY-Jzhqlulcx-Nlllyq 170 DO Work Phone: 01-17-2022 13:02-0400 Systolic blood pressure 98 mm[Hg] Evelyn L Oberhauser Work Phone: NB-Wquppjcwx-Sfyhzr 170 DO Work Phone: 12-20-2021 13:31-0400 Body height 162.56 cm Evelyn L Oberhauser Work Phone: [facility] Work Phone: 12-20-2021 13:31-0400 Body mass index (BMI) [Ratio] 30.21 kg/m2 Evelyn L Oberhauser Work Phone: [facility] Work Phone: 12-20-2021 13:31-0400 Body surface area Derived from formula 1.85 m2 Evelyn L Oberhauser Work Phone: [facility] Work Phone: 12-20-2021 13:31-0400 Body temperature 98.2 [degF] Evelyn L Oberhauser Work Phone: [facility] Work Phone: 12-20-2021 13:31-0400 Body weight 79.83 kg Evelyn L Oberhauser Work Phone: [facility] Work Phone: 12-20-2021 13:31-0400 Diastolic blood pressure 58 mm[Hg] Evelyn L Oberhauser Work Phone: [facility] Work Phone: 12-20-2021 13:31-0400 Heart rate 87 /min Evelyn L Oberhauser Work Phone: [facility] Work Phone: 12-20-2021 13:31-0400 Systolic blood pressure 114 mm[Hg] Evelyn L Oberhauser Work Phone: [facility] Work Phone: 10-18-2021 10:46-0500 Body height 162.56 cm Evelyn L Oberhauser Work Phone: LL-Wnvtugbqo-Zqcdod 170 DO Work Phone: 10-18-2021 10:46-0500 Body mass index (BMI) [Ratio] 30.9 kg/m2 Evelyn L Oberhauser Work Phone: EY-Dpvhkochx-Zjbmjj 170 DO Work Phone: 10-18-2021 10:46-0500 Body surface area Derived from formula 1.87 m2 Evelyn L Oberhauser Work Phone: QZ-Ghbbhpyyu-Pnwfzs 170 DO Work Phone: 10-18-2021 10:46-0500 Body temperature 97.9 [degF] Evelyn L Oberhauser Work Phone: MU-Gxezqfkax-Sijefj 170 DO Work Phone: 10-18-2021 10:46-0500 Body weight 81.65 kg Evelyn L Oberhauser Work Phone: CD-Xxwazypci-Kctpeo 170 DO Work Phone: 10-18-2021 10:46-0500 Diastolic blood pressure 72 mm[Hg] Evelyn L Oberhauser Work Phone: SL-Oplwvclph-Jymvkl 170 DO Work Phone: 10-18-2021 10:46-0500 Heart rate 79 /min Evelyn L Oberhauser Work Phone: FA-Ebecbakns-Wnhpao 170 DO Work Phone: 10-18-2021 10:46-0500 Systolic blood pressure 108 mm[Hg] Evelyn L Oberhauser Work Phone: [facility] 170 DO Work Phone: 08-29-2021 13:37-0500 Body height 162.56 cm Evelyn L Oberhauser Work Phone: [facility] Work Phone: 08-29-2021 13:37-0500 Body mass index (BMI) [Ratio] 30.73 kg/m2 Evelyn L Oberhauser Work Phone: [facility] Work Phone: 08-29-2021 13:37-0500 Body surface area Derived from formula 1.87 m2 Evelyn L Oberhauser Work Phone: [facility] Work Phone: 08-29-2021 13:37-0500 Body temperature 97.5 [degF] Evelyn L Oberhauser Work Phone: [facility] Work Phone: 08-29-2021 13:37-0500 Body weight 81.19 kg Evelyn L Oberhauser Work Phone: [facility] Work Phone: 08-29-2021 13:37-0500 Diastolic blood pressure 73 mm[Hg] Evelyn L Oberhauser Work Phone: [facility] Work Phone: 08-29-2021 13:37-0500 Heart rate 80 /min Evelyn L Oberhauser Work Phone: [facility] Work Phone: 08-29-2021 13:37-0500 Systolic blood pressure 113 mm[Hg] Evelyn L Oberhauser Work Phone: [facility] Work Phone: 05-25-2021 11:51-0400 Body height 162.56 cm Evelyn L Oberhauser Work Phone: [facility] Work Phone: 05-25-2021 11:51-0400 Body mass index (BMI) [Ratio] 31.41 kg/m2 Evelyn L Oberhauser Work Phone: [facility] Work Phone: 05-25-2021 11:51-0400 Body surface area Derived from formula 1.88 m2 Evelyn L Oberhauser Work Phone: [facility] Work Phone: 05-25-2021 11:51-0400 Body temperature 97.8 [degF] Evelyn L Oberhauser Work Phone: [facility] Work Phone: 05-25-2021 11:51-0400 Body weight 83.01 kg Evelyn L Oberhauser Work Phone: [facility] Work Phone: 05-25-2021 11:51-0400 Diastolic blood pressure 82 mm[Hg] Evelyn Busch Work Phone: [facility] Work Phone: 05-25-2021 11:51-0400 Heart rate 82 /min Evelyn Busch Work Phone: [facility] Work Phone: 05-25-2021 11:51-0400 Systolic blood pressure 127 mm[Hg] Evelyn Busch Work Phone: [facility] Work Phone: 10-26-2020 16:06-0500 BMI (Body Mass Index) 32.27 kg/m2 [facility] Work Phone: 10-26-2020 16:06-0500 Body Temperature 96.9 [degF] [facility] Work Phone: Comment on above: Method: Temporal 10-26-2020 16:06-0500 Body weight 85.28 kg Evelyn Busch [facility] Work Phone: 10-26-2020 16:06-0500 BP Diastolic 78 mm[Hg] Ev[facility] Busch [facility] Work Phone: Comment on above: Location: RUE; Position: Sitting 10-26-2020 16:06-0500 BP Systolic 112 mm[Hg] Ev[facility] Busch [facility] Work Phone: Comment on above: Location: RUE; Position: Sitting 10-26-2020 16:06-0500 BSA (Body Surface Area) 1.91 m2 Evelyn Busch [facility] Work Phone: 10-26-2020 16:06-0500 Height 162.56 cm [facility] Work Phone: 10-26-2020 16:06-0500 Pulse (Heart Rate) 83 /min [facility] Busch [facility] Work Phone: Comment on above: Location: R Brachial Artery; Quality: Re gracia 07-20-2020 14:13-0400 Body Temperature 97.3 [degF] [facility] 07-20-2020 13:31-0400 BP Diastolic 70 mm[Hg] [facility] [place] 07-20-2020 13:31-0400 BP Systolic 110 mm[Hg] [facility] [place] 07-20-2020 13:31-0400 Pulse Oximetry 99 % [facility] 07-20-2020 13:31-0400 Respiratory Rate 12 /min [facility] [place] 07-20-2020 12:34-0400 Pulse (Heart Rate) 76 /min [facility] [place] 07-20-2020 08:57-0400 BMI (Body Mass Index) 31.83 kg/m2 [facility] [place] 07-20-2020 08:57-0400 Body weight 84.1 kg [facility] [place] 07-20-2020 08:57-0400 Height 162.6 cm [facility] [place] 03-02-2020 12:30-0400 BMI (Body Mass Index) 31.76 kg/m2 [facility] Work Phone: 03-02-2020 12:30-0400 Body weight 83.92 kg [facility] Work Phone: 03-02-2020 12:30-0400 BSA (Body Surface Area) 1.89 m2 [facility] Work Phone: 03-02-2020 12:30-0400 Height 162.56 cm [facility] Work Phone: 11-25-2019 13:25-0500 [facility] Work Phone: 11-25-2019 13:25-0500 BP Diastolic 76 mm[Hg] Evelyn Busch [facility] Work Phone: 11-25-2019 13:25-0500 BP Systolic 116 mm[Hg] [facility]ch [facility] Work Phone: 11-25-2019 13:25-0500 Pulse (Heart Rate) 87 /min [facility] Busch [facility] Work Phone: 10-22-2019 12:09-0500 BP Diastolic 63 mm[Hg] [facility] 10-22-2019 12:09-0500 BP Systolic 101 mm[Hg] [facility] 10-22-2019 12:09-0500 Pulse Oximetry 98 % [facility] 10-22-2019 12:09-0500 Respiratory Rate 16 /min [facility] 10-22-2019 09:20-0500 Body Temperature 97.5 [degF] [facility] 10-22-2019 09:20-0500 Pulse (Heart Rate) 68 /min [facility] 10-22-2019 06:01-0500 BMI (Body Mass Index) 31.86 kg/m2 [facility] 10-22-2019 06:01-0500 Body weight 84.2 kg [facility] 10-22-2019 06:01-0500 Height 162.6 cm Er[facility] 08-27-2019 13:08-0500 BMI (Body Mass Index) 31.24 kg/m2 [facility] 08-27-2019 13:08-0500 Body weight 82.56 kg [facility] 08-27-2019 13:08-0500 Height 162.6 cm [facility] 04-29-2019 11:38-0400 BMI (Body Mass Index) 31.07 kg/m2 Italia Raedcipriano [facility] 04-29-2019 11:38-0400 Body Temperature 97.2 [degF] [facility] 04-29-2019 11:38-0400 Body weight 82.1 kg [facility] 04-29-2019 11:38-0400 BP Diastolic 55 mm[Hg] [facility] 04-29-2019 11:38-0400 BP Systolic 100 mm[Hg] [facility] 04-29-2019 11:38-0400 Height 162.6 cm [facility] 04-29-2019 11:38-0400 Pulse (Heart Rate) 82 /min [facility] 04-29-2019 11:38-0400 Pulse Oximetry 100 % [facility] 04-29-2019 11:38-0400 Respiratory Rate 16 /min [facility] 03-13-2019 10:21-0400 BMI (Body Mass Index) 31.07 kg/m2 [facility] 03-13-2019 10:21-0400 Body Temperature 97.7 [degF] [facility] 03-13-2019 10:21-0400 Body weight 82.1 kg [facility] 03-13-2019 10:21-0400 BP Diastolic 56 mm[Hg] [facility] 03-13-2019 10:21-0400 BP Systolic 114 mm[Hg] [facility] 03-13-2019 10:21-0400 Height 162.6 cm [facility] 03-13-2019 10:21-0400 Pulse (Heart Rate) 90 /min [facility] 03-13-2019 10:21-0400 Pulse Oximetry 100 % [facility] 03-13-2019 10:21-0400 Respiratory Rate 16 /min [facility] 02-24-2018 08:54-0400 BMI (Body Mass Index) 28.32 kg/m2 [facility] 02-24-2018 08:54-0400 Height 162.6 cm [facility] 02-24-2018 08:54-0400 Weight 74.84 kg [facility] 12-30-2017 14: BMI (Body Mass Index) 28.32 kg/m2 [facility] 12-30-2017 14: Height 162.6 cm [facility] 12-30-2017 14: Weight 74.84 kg [facility] Encounters Encounter Date Encounter Type Care Provider Facility Start: 09-03-2025 ambulatory Evelyn Luoi ty:[facility] Start: 08-06-2025 End: 08-06-2025 ambulatory SHAQUILLE LAZAR Facility:[facility] Start: 07-28-2025 End: 07-28-2025 ambulatory MARY STILL Facility:[facility] Start: 07-23-2025 End: 07-23-2025 ambulatory LORRAINE ROLDAN Facility:[facility] Start: 07-19-2025 End: 07-19-2025 ambulatory SHAQUILLE LAZAR Facility:[facility] Start: 07-09-2025 End: 07-09-2025 ambulatory TAYLOR WOOTEN Facility:[facility] Start: 07-09-2025 End: 07-09-2025 ambulatory MILTON MARIVIKKI Facility:[facility] Start: 06-25-2025 End: 06-25-2025 ambulatory JOY DENNISON Facility:[facility] Start: 06-25-2025 End: 06-25-2025 ambulatory LORRAINE ROLDAN Facility:[facility] Start: 06-24-2025 End: 06-24-2025 ambulatory CHRISSIE AGUILERA Facility:[facility] Start: 06-21-2025 End: 06-21-2025 Telephone encounter Neli Valencia MD Work Phone: OB/Gynecology Comment on above: Gestational Diabetes (/) Start: 06-19-2025 End: 06-19-2025 ambulatory NELI VALENCIA Facility:[facility] Start: 06-17-2025 End: 06-17-2025 ambulatory Lorraine Roldan APRN.CNM Work Phone: OB/Gynecology Comment on above: Iron supplement Start: 06-11-2025 End: 06-11-2025 Patient encounter procedure Lorraine Roldan APRN.CNM Work Phone: OB/Gynecology Comment on above: Supervision of high risk , antepartum (HCC) (Primary Dx); 28 weeks gestation of (HCC); Obesity in (HCC); Postural orthostatic tachycardia syndrome; Low-lying placenta without hemorrhage, second trimester (HCC); Need for vaccination; Encounter for immunization; Penicillin allergy Start: 06-11-2025 End: 06-11-2025 [facility] CHRISSIE AGUILERA Facility:[facility] Start: 06-04-2025 End: 06-04-2025 Patient encounter procedure Taylor Wooten SCRIPT GIRL.NAILER OPERATOR Work Phone: Allergy Comment on above: Adverse effect of pe nicillin, initial encounter (Primary Dx); Adverse effect of cephalosporin, initial encounter; 27 weeks gestation of (HCC) Start: 06-04-2025 End: 06-04-2025 [facility] TAYLOR WOOTEN Facility:[facility] Start: 05-14-2025 End: 05-14-[facility] Start: 04-16-2025 End: 04-16-2025 Patient encounter procedure [employer] 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 [facility]aternal [facility] Comment on above: Obesity in (HCC) (Primary Dx); with uncertain dates, antepartum (HCC); Low-lying placenta without hemorrhage, second trimester (HCC) 20 weeks gestation o f (HCC) (Primary Dx); Supervision of high risk , antepartum (HCC); Obesity in (HCC); Postural orthostatic tachycardia syndrome; Low lying placenta, antepartum (HCC) Start: 04-16-2025 End: 04-16-2025 ambulatory LORRAINE ROLDAN Facility:[facility] Start: 03-24-2025 End: 05-24-2025 Follow-up encounter Neli Valencia MD Work Phone: OB/Gynecology Start: 03-23-2025 End: 03-23-2025 Emergency department patient visit Kai Vera DO Work Phone: [facility] Comment on above: Acute nonintractable headache, unspecified headache type (Primary Dx); Urinary tract infection without hematuria, site unspecified Start: 03-19-2025 End: 03-19-2025 Patient encounter procedure Lorraine Roldan APRN.CNM Work Phone: OB/Gynecology Comment on above: Supervision of high risk , antepartum (HCC) (Primary Dx); Obesity in (HCC); Postural orthostatic tachycardia syndrome; 16 weeks gestation of (HCC); Elevated BP without diagnosis of hypertension Start: 03-19-2025 End: 03-19-2025 ambulatory LORRAINE ROLDAN Facility:[facility] Start: 03-05-2025 End: 03-05-2025 ambulatory LORRAINE ROLDAN Facility:[facility] Start: 03-03-2025 End: 03-03-2025 Patient encounter procedure Chrissie Aguilera APRN.NAILER OPERATOR Work Phone: OB/Gynecology Comment on above: Supervision of high risk , antepartum (HCC) (Primary Dx); 13 weeks gestation of (HCC); Obesity in (HCC); Penicillin allergy Encounter for antena hermelindo screening for malformation using ultrasound (HCC) (Primary Dx); 13 weeks gestation of (HCC); Encounter for (NT) nuchal translucency scan ([facility]) Start: 03-03-2025 End: 03-03-2025 ambulatory CHRISSIE AGUILERA Facility:[facility] Start: 02-01-2025 End: 03-09-2025 Follow-up encounter Lorraine Roldan APRN.CNM Work Phone: OB/Gynecology Start: 01-29-2025 End: 01-29-2025 ambulatory LORRAINE ROLDAN Facility:[facility] Start: 12-30-2024 ambulatory EVELYN BUSCH [facility] Start: 12-30-2024 End: 12-30-2024 Office outpatient visit 25 minutes Evelyn Busch DO Work Phone: [facility] Comment on above: 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 (Primary Dx); Intractable migraine without aura and without status migrainosus; Migraine without aura and without status migrainosus, not intractable; Obesity: body mass index of 35.0-39.9 Start: 11-20-2024 End: 11-20-2024 ambulatory ALBA ROSA Facility:[facility] Start: 11-20-2024 End: 11-20-2024 Patient encounter procedure Alba Rosa SCRIPT GIRL.NAILER OPERATOR Work Phone: OB/Gynecology Comment on above: Encounter for gyneco logical examination (general) (routine) without abnormal findings (Primary Dx); Irregular menstrual cycle Start: 11-20-2024 End: 11-20-2024 Patient encounter status Alba Rosa SCRIPT GIRL.NAILER OPERATOR Work Phone: [facility] Start: 10-23-2024 End: 10-23-2024 ambulatory [facility] Start: 10-23-2024 End: 10-23-2024 Office outpatient visit 25 minutes Tammy Simeon SCRIPT GIRL-NAILER OPERATOR Work Phone: [facility] Comment on above: Chronic migraine wit h aura without status migrainosus, not intractable (Primary Dx); POTS (postural orthostatic tachycardia syndrome); Chronic migraine without aura without status migrainosus, not intractable Start: 10-23-2024 End: 10-23-2024 ambulatory TAMMY Mcfarland [facility] Start: 04-17-2024 End: 04-17-2024 Office outpatient visit 25 minutes Tammy Simeon SCRIPT GIRL-NAILER OPERATOR Work Phone: [facility] Comment on above: Chronic migraine wit h aura without status migrainosus, not intractable (Primary Dx); POTS (postural orthostatic tachycardia syndrome); Chronic migraine without aura without status migrainosus, not intractable Start: 04-17-2024 End: 04-17-2024 ambulatory TAMMY Mcfarland [facility] Ambulatory Start: 03-11-2024 End: 03-11-2024 Subsequent hospital visit by physician Paul X-Ray 1 [facility] Comment on above: Arthralgia, unspecif ied joint Start: 03-11-2024 End: 03-11-2024 ambulatory [facility] Start: 03-10-2024 End: 03-10-2024 ambulatory [facility] Ambulatory Start: 03-10-2024 End: 03-10-2024 Office outpatient new 45 minutes Ghulam Renteria MD Work Phone: [facility] Comment on above: Arthralgia, unspecif ied joint (Primary Dx) Start: 02-26-2024 End: 02-26-2024 Patient encounter procedure Sanya Arana PA-C Work Phone: [facility] Comment on above: Acute rhinosinusitis (Primary Dx) Start: 01-09-2024 End: 01-09-2024 Office outpatient visit 25 minutes Tammy Mcfarland Simeon SCRIPT GIRL-NAILER OPERATOR Work Phone: [facility] Comment on above: Chronic migraine wit h aura without status migrainosus, not intractable (Primary Dx); Cervico-occipital neuralgia; POTS (postural orthostatic tachycardia syndrome); Chronic migraine without aura without status migrainosus, not intractable; Arthralgia, unspecified joint Start: 01-09-2024 End: 01-09-2024 ambulatory TAMMY SIMEON [facility] Ambulatory Start: 12-27-2023 End: 12-27-2023 Subsequent hospital visit by physician Paul X-Ray 1 [facility] Comment on above: Left foot pain Start: 10-10-2023 End: 10-10-2023 Postop follow up visit related to original px Evelyn Del Rio MD Work Phone: [facility] Comment on above: Postoperative visit (Primary Dx) Start: 10-02-2023 End: 10-02-2023 Office outpatient visit 25 minutes Gus Bradley PA-C Work Phone: [facility] Comment on above: Urticaria (Primary D x); Allergic contact dermatitis due to adhesives Start: 09-25-2023 End: 09-25-2023 Subsequent hospital visit by physician Evelyn Del Rio MD Work Phone: [facility] [place] Comment on above: Post-operative pain (Primary Dx); Biliary dyskinesia Start: 09-05-2023 End: 09-05-2023 Office consultation new/estab patient 60 min Evelyn Del Rio MD Work Phone: [facility] Comment on above: RUQ abdominal pain; Epigastric pain Start: 08-09-2023 End: 08-09-2023 Subsequent hospital visit by physician Paul Gutiérrez 1 [facility] Comment on above: RUQ abdominal pain; Epigastric pain; Nausea Start: 08-06-2023 End: 08-06-2023 Office outpatient visit 25 minutes Gus Bradley PA-C Work Phone: [facility] Comment on above: RUQ abdominal pain ( Primary Dx); Epigastric pain; Nausea Start: 08-02-2023 End: 08-02-2023 Subsequent hospital visit by physician Paul Frances 1 [facility] Comment on above: RUQ abdominal pain Start: 07-06-2023 End: 07-06-2023 ambulatory Memo Quigley Other [place] Other Start: 07-06-2023 Office outpatient ne w 20 minutes Memo Quigley [facility] Start: 07-05-2023 Current tobacco non- user cad cap copd pv dm Evelyn Busch Work Phone: YP-Wurftwbnt-Kyngimnb B 101 DO Work Phone: Start: 07-05-2023 ambulatory Ms. Tammy Simeon Facremberto lity:[id number] Start: 06-19-2023 Office outpatient vi sit 15 minutes Evelyn Busch Work Phone: IB-Yuokrcmch-Yvmryx 170 Work Phone: Start: 06-19-[address] Evelyn Busch Facility:[id number] Start: 05-13-2023 End: 05-13-2023 ambulatory [facility] Start: 03-20-2023 AUDIT Evelyn Adamson user Work Phone: ER-Phjzxguku-Muhrfuxd B 101 Work Phone: Start: 01-31-2023 Chart Update Evelyn Adamson user Work Phone: [address] Work Phone: Start: 01-29-2023 AUDIT Evelyn Adamson user Work Phone: ZU-Efrnczfuh-Tnlcvian B 101 Work Phone: Start: 01-18-2023 Encounter for gynecological examination (general) (routine) without abnormal findings Ms. Nancy Ross [facility] Start: 01-17-2023 Encounter for gynecological examination (general) (routine) without abnormal findings Dr. Evelyn Busch Facility:[facility] Start: 01-17-[address] Evelyn Busch Facility:[facility] Start: 01-07-2023 Chart Update Evelyn Adamson user Work Phone: BQ-Tfnricstv-Lsnaxlpu B 101 Work Phone: Start: 01-04-2023 Current tobacco non- user cad cap copd pv dm Evelyn Busch Work Phone: GD-Pglquvsno-Djwftkym B 101 Work Phone: Start: 01-04-2023 ambulatory Ms. Tammy Simeon Faci lity:[id number] Start: 12-06-2022 Office outpatient vi sit 15 minutes Evelyn Busch Work Phone: [address] Work Phone: Start: 12-06-[address] Evelyn Busch Facility:[id number] Start: 11-19-2022 Office outpatient ne w 45 minutes Evelyn Busch Work Phone: VK-Teqqbecgq-Asilxkdl B 101 Work Phone: Start: 11-19-2022 ambulatory Ms. Tammy Simeon Faci lity:[id number] Start: 10-25-2022 Chart Update Evelyn Adamson user Work Phone: [facility] Work Phone: Start: 10-25-[address] Evelyn Busch Facility:[id number] Start: 10-18-2022 Chart Update Evelyn Adamson user Work Phone: [facility] Work Phone: Start: 10-18-[address] Evelyn Busch Facility:[id number] Start: 10-12-2022 AUTONOMIC, Provider: AUTO-BEATRICE 5,NEURODIAG, Status: Pen, Time: 1:00 PM Evelyn Busch Work Phone: [facility] Work Phone: Start: 10-12-[address] Evelyn Busch Facility:[facility] Start: 10-10-[address] Evelyn Busch Facility:[id number] Start: 10-10-2022 Office outpatient vi sit 25 minutes Evelyn Busch Work Phone: [facility] Work Phone: Start: 10-02-2022 End: 10-02-2022 Emergency department [facility] Start: 09-17-2022 Patient encounter procedure Evelyn Busch Work Phone: [address] Work Phone: Start: 09-17-2022 ambulatory DONNA BETTY Facility:[id number] Start: 08-15-2022 Office outpatient vi sit 25 minutes Evelyn Busch Work Phone: [facility] 170 DO Work Phone: Start: 08-15-[address] Evelyn Busch Facility:[id number] Start: 07-26-2022 ambulatory TOBIAS COLIN Gianfranco y:[id number] Start: 07-19-2022 Office outpatient ne w 45 minutes Evelyn Busch Work Phone: [facility] Work Phone: Start: 07-19-[address] Evelyn Busch Facility:[id number] Start: 06-25-2022 Patient encounter procedure Evelyn Busch Work Phone: [facility] Work Phone: Start: 06-14-2022 Initial preventive medicine new pt age 18-39yrs Evelyn Busch Work Phone: [facility] Work Phone: Start: 06-14-2022 NPV, Provider: Nancy Ross, Status: Pen, Time: 11:15 AM Evelyn Busch [facility] Work Phone: Start: 06-12-[address] Evelyn Busch Facility:[id number] Start: 06-12-2022 Patient encounter procedure Evelyn Busch Work [facility]: [facility] Work Phone: Start: 06-07-[address] Evelyn Busch Facility:[id number] Start: 05-30-2022 Patient encounter procedure Lung S Flavio [facility] Start: 05-30-[address] Evelyn Busch Facility:[id number] Start: 05-29-2022 End: 05-29-2022 Emergency department patient visit Chuck Levy Rian [facility] Emergency Start: 05-23-[address] Evelyn Busch Facility:[id number] Start: 05-18-[address] Evelyn Busch Facility:[id number] Start: 05-18-2022 EVENT GONZALO, Provider : [facility]ST[facility] THER[facility]ISTSWAPAN, Status: Pen, Time: 9:30 AM Evelyn Busch Work Phone: [facility] Work Phone: Start: 05-18-2022 Patient encounter procedure Evelyn Busch Work Phone: [facility] Work Phone: Start: 05-17-2022 Office outpatient vi sit 25 minutes Evelyn Orozcohauser Work Phone: [facility] Work Phone: Start: 05-15-[address] Evelyn Busch Facility:[id number] Start: 05-11-2022 Patient encounter procedure Evelyn Orozcohauser Work Phone: [facility] Work Phone: Start: 05-11-[address] Evelyn Busch Facility:[id number] Start: 04-18-2022 Office outpatient vi sit 25 minutes Evelyn Arzolaer Work Phone: XK-Jfntbylov-Bughrj 170 DO Work Phone: Start: 02-14-2022 Patient encounter procedure Evelyn Wiseerhauser Work Phone: WS-Bzfqjmsgs-Ryrxda 170 DO Work Phone: Start: 01-17-2022 Patient encounter procedure Evelyn Qing Oberhauser Work Phone: DQ-Ujrypkmwc-Pbdsts 170 DO Work Phone: Start: 01-02-2022 Image Encounter Evelyn Qing Oberha user Work Phone: zz DO NOT USE - [employer] Only Start: 12-20-2021 Office outpatient vi sit 15 minutes Evelyn Wiseerhauser Work Phone: [facility] Work Phone: Start: 11-01-2021 AUDIT Evelyn L Oberha user Work Phone: IH-Khdbxejxs-Exjucy 170 DO Work Phone: Start: 10-18-2021 Office consultation new/estab patient 80 min Evelyn Longo Oberhauser Work Phone: AI-Kcfweedgj-Tfziet 170 DO Work Phone: Start: 09-20-2021 Chart Update Evelyn Longo Oberha user Work Phone: [facility] Work Phone: Start: 08-29-2021 Current tobacco non- user cad cap copd pv dm Evelyn Longo Oberhauser Work Phone: [facility] Work Phone: Start: 08-29-2021 Office outpatient vi sit 25 minutes vEelyn Wiseerhauser Work Phone: [facility] Work Phone: Start: 07-06-2021 AUDIT Evelyn Longo Oberha user Work Phone: [facility] Work Phone: Start: 06-28-2021 AUDIT Evelyn Longo Oberha user Work Phone: [facility] Work Phone: Start: 06-06-2021 AUDIT Evelyn Longo Oberha user Work Phone: [facility] Work Phone: Start: 04-11-2021 AUDIT Evelyn Longo Oberha user Work Phone: [facility] Work Phone: Start: 02-14-2021 ambulatory [facility] Ambulatory Start: 01-26-2021 Patient encounter procedure Evelyn Oberhauser DO [facility] Work Phone: Start: 01-16-2021 Patient encounter procedure Evelyn Oberhauser DO [facility] Work Phone: Start: 01-02-2021 Patient encounter procedure Evelyn Oberhauser DO [facility] Work Phone: Start: 12-27-2020 Patient encounter procedure Evelyn Oberhauser DO [facility] Work Phone: Start: 12-22-2020 Patient encounter procedure Evelyn Oberdevaner DO [facility] Work Phone: Start: 12-19-2020 Patient encounter procedure Evelyn Oberdevaner DO [facility] Work Phone: Start: 12-05-2020 Patient encounter procedure Evelyn Obovidio DO [facility] Work Phone: Start: 11-23-2020 Patient encounter procedure Evelyn Obovidio DO [facility] Work Phone: Start: 11-16-2020 Patient encounter procedure Evelyn Busch [facility] Work Phone: Start: 11-09-2020 Patient encounter procedure Evelyn Busch [facility] Work Phone: Start: 11-02-2020 Patient encounter procedure Evelyn Busch [facility] Work Phone: Start: 10-31-2020 ambulatory [facility] Start: 10-28-2020 Patient encounter procedure Evelyn Busch [facility] Work Phone: Start: 10-26-2020 Patient encounter procedure Evelyn Busch [facility] Work Phone: Start: 10-20-2020 Patient encounter procedure Evelyn Busch [facility] Work Phone: Start: 10-19-2020 Patient encounter procedure Evelyn Busch [facility] Work Phone: Start: 10-14-2020 Patient encounter procedure Evelyn Busch [facility] Work Phone: Start: 10-12-2020 Patient encounter procedure Evelyn Busch [facility] Work Phone: Start: 09-12-2020 Patient encounter procedure Evelyn Busch [facility] Work Phone: Start: 09-09-2020 End: 09-09-2020 ambulatory ERNIE GROVE [facility] Start: 09-09-2020 End: 09-09-2020 Postop follow up visit related to original px Ernie Grove Work Phone: [facility] Comment on above: S/P left knee arthro scopy (Primary Dx) Start: 09-09-2020 Patient encounter procedure Evelyn Busch [facility] Work Phone: Start: 09-07-2020 Patient encounter procedure Evelyn Busch [facility] Work Phone: Start: 08-31-2020 Patient encounter procedure Evelyn Busch [facility] Work Phone: Start: 08-29-2020 Patient encounter procedure Evelyn Busch [facility] Work Phone: Start: 08-25-2020 Patient encounter procedure Evelyn Busch [facility] Work Phone: Start: 08-18-2020 Patient encounter procedure Evelyn Busch [facility] Work Phone: Start: 08-16-2020 Patient encounter procedure Evelyn Busch [facility] Work Phone: Start: 08-12-2020 Patient encounter procedure Evelyn Busch [facility] Work Phone: Start: 08-09-2020 Patient encounter procedure Evelyn Busch [facility] Work Phone: Start: 08-05-2020 End: 08-05-2020 ambulatory ERNIE GROVE [facility] Start: 08-05-2020 End: 08-05-2020 Postop follow up visit related to original px Ernie Grove Work Phone: [facility] Comment on above: Patellofemoral pain syndrome of left knee (Primary Dx) Start: 07-20-2020 End: 07-20-2020 Subsequent hospital visit by physician Ernie [place] Work Phone: [facility] Comment on above: S/P arthroscopy of l eft knee (Primary Dx); Patellofemoral pain syndrome of left knee Start: 07-18-2020 End: 07-18-2020 [facility] Start: 06-05-2020 End: 06-05-2020 Patient encounter procedure ERNIE THOMPSON MAINE [facility] Start: 05-27-2020 End: 05-27-2020 ambulatory ERNIE GROVE [facility] Start: 05-06-2020 End: 05-10-2020 ambulatory ERNIE GROVE [facility] Start: 03-02-2020 Patient encounter procedure [facility] Work Phone: Start: 02-18-2020 ambulatory ERNIE GROVE [facility] Start: 01-18-2020 End: 01-18-2020 Postop follow up visit related to original px Ernie Grove Work Phone: [facility] Comment on above: Patellofemoral disor faith of left knee (Primary Dx) Start: 01-15-2020 Patient encounter procedure [facility] Work Phone: Start: 01-14-2020 Patient encounter procedure Evelyn Busch [facility] Work Phone: Start: 01-13-2020 Patient encounter procedure Evelyn Busch [facility] Work Phone: Start: 01-11-2020 Patient encounter procedure Evelyn Busch [facility] Work Phone: Start: 01-08-2020 Patient encounter procedure Evelyn Busch [facility] Work Phone: Start: 01-06-2020 Patient encounter procedure Evelyn Busch [facility] Work Phone: Start: 01-04-2020 Patient encounter procedure Evelyn Busch [facility] Work Phone: Start: 01-01-2020 Patient encounter procedure Evelyn Busch [facility] Work Phone: Start: 12-30-2019 Patient encounter procedure Evelyn Busch [facility] Work Phone: Start: 12-28-2019 Patient encounter procedure Evelyn Busch [facility] Work Phone: Start: 12-25-2019 Patient encounter procedure Evelyn Busch [facility] Work Phone: Start: 12-23-2019 Patient encounter procedure Evelyn Busch [facility] Work Phone: Start: 12-21-2019 Patient encounter procedure Evelyn Busch [facility] Work Phone: Start: 12-15-2019 Patient encounter procedure Evelyn Busch [facility] Work Phone: Start: 12-14-2019 Patient encounter procedure Evelyn Busch [facility] Work Phone: Start: 12-11-2019 Patient encounter procedure Evelyn Busch [facility] Work Phone: Start: 12-09-2019 Patient encounter procedure Evelyn Busch [facility] Work Phone: Start: 12-08-2019 Patient encounter procedure Evelyn Busch [facility] Work Phone: Start: 12-07-2019 End: 12-07-2019 Postop follow up visit related to original px Ernie Grove Work Phone: [facility] Comment on above: Patellofemoral disor faith of left knee (Primary Dx) Start: 12-04-2019 Patient encounter procedure Evelyn Busch [facility] Work Phone: Start: 12-02-2019 Patient encounter procedure Evelyn Busch [facility] Work Phone: Start: 11-30-2019 Patient encounter procedure Evelyn Busch [facility] Work Phone: Start: 11-27-2019 Patient encounter procedure Evelyn Busch [facility] Work Phone: Start: 11-26-2019 Patient encounter procedure Evelyn Busch [facility] Work Phone: Start: 11-25-2019 Patient encounter procedure Evelyn Busch [facility] Work Phone: Start: 11-24-2019 Patient encounter procedure Evelyn Busch [facility] Work Phone: Start: 11-20-2019 Patient encounter procedure Evelyn Busch [facility] Work Phone: Start: 11-13-2019 Patient encounter procedure Evelyn Busch [facility] Work Phone: Start: 11-12-2019 Patient encounter procedure Evelyn Busch [facility] Work Phone: Start: 11-10-2019 Patient encounter procedure Evelyn Busch [facility] Work Phone: Start: 11-09-2019 End: 11-09-2019 Postop follow up visit related to original px Ernie Kevin Grove Work Phone: [facility] Comment on above: Patellofemoral disor faith of left knee (Primary Dx) Start: 10-22-2019 End: 10-22-2019 Subsequent hospital visit by physician Ernie Grove Work Phone: [facility] Comment on above: S/P arthroscopic sophia isabela of left knee (Primary Dx); Patellofemoral pain syndrome of left knee; Patellofemoral pain syndrome of left knee Start: 10-14-2019 Patient encounter procedure Evelyn Busch [facility] Work Phone: Start: 09-23-2019 Patient encounter procedure Evelyn Busch [facility] [place] Work Phone: Start: 08-27-2019 End: 08-27-2019 Office outpatient visit 25 minutes Aida Idaniavianca Kaur Work Phone: [facility] Comment on above: Patellofemoral pain syndrome of left knee (Primary Dx) Start: 08-21-2019 Patient encounter procedure Evelyn Busch [facility] [place] Work Phone: Start: 08-12-2019 Patient encounter procedure [facility] Work Phone: Start: 04-29-2019 End: 04-29-2019 Office outpatient visit 25 minutes Italia Mcmillan Work Phone: [facility] [place] Comment on above: NDPH (new daily pers istent headache) (Primary Dx); Intractable migraine without aura and without status migrainosus Start: 04-22-2019 End: 04-22-2019 Subsequent hospital visit by physician Tate Cesar Work Phone: [facility] [place] Start: 04-02-2019 End: 04-02-2019 Outside Orders Italia Mcmillan Work Phone: [facility] [place] Start: 03-20-2019 End: 03-20-2019 Patient encounter procedure Historical Provider Lia Lowe Vaughn Start: 03-13-2019 End: 03-13-2019 Letter encounter Provider Jai Santos [facility] Start: 03-13-2019 End: 03-13-2019 Office outpatient new 30 minutes Italia Mcmillan Work Phone: [place] [facility] Comment on above: Muscle weakness (gen eralized) (Primary Dx); Numbness and tingling in both hands; Worst headache of life; Bilateral occipital neuralgia; NDPH (new daily persistent headache) Start: 02-24-2018 End: 02-24-2018 Office/outpatient visit, est, level 2 Ernie Grove Work Phone: [facility] Start: 01-10-2018 Ambulatory Belen Carl [facility] Start: 12-30-2017 Office/outpatient vi sit, new, level 2 Ernie Grove Work Phone: [facility] Encounter for gynecological examination (general) (routine) without abnormal findings Evelyn Busch Work Phone: BA-Tzekeyfpr-Vjzmoasr B 101 Work Phone: Comment on above: 02/01/23 NORMAL; Patient encounter status Evelyn Longo Narayan Work Phone: MU-Tutkaarug-Apsktuvb B 101 Work Phone: Procedures Date Procedure Procedure Detail Performing Clinician Start: 06-04-2025 ALLERGEN SKIN TEST-PENICILLIN Taylor Wooten APRN.NAILER OPERATOR Work Phone: Start: 04-16-2025 Us preg uterus after 1st trimest 10/07 gestation Lorraine Roldan APRN.CNM Work Phone: Start: 03-23-2025 Urinalysis microscop ic panel - Urine Qualitative by Automated Kai Vera DO Work Phone: Start: 03-23-2025 Urnls dip stick/tabl et reagent auto microscopy Kai Vera DO Work Phone: Start: 03-23-2025 Comprehensive metabolic panel Kai Vera DO Work Phone: Start: 03-05-2025 Antibody screen CHRISSIE LANCASTER Comment on above: Order Comment: Speci men Type: BLOOD SPECIMENOrdering Facility: [facility] Address: [address] [place] [address] Performed By: #### T SPN ####CC MAIN BLOOD BANKCLIA [id number] [facility] [id number] [place] Start: 03-03-2025 Us preg uterus after 1st trimest 10/07 gestation Lorraine Roldan APRN.CNM Work Phone: Start: 09-25-2023 PULSE OXIMETRY, CONTINUOUS Lv Henley MD Work Phone: Start: 09-25-2023 Urine test visual color cmprsn meths Lv Henley MD Work Phone: Start: 09-25-2023 PULSE OXIMETRY, SPOT Me corrina Del Rio MD Work Phone: Start: 08-09-2023 Us abdominal real ti me w/image documentation Gus Bradley PA-C Work Phone: Start: 08-02-2023 Hepatobil syst imag inc gb w/pharma intervenj Evelyn Busch DO Work Phone: Start: 01-17-2023 Microscopic observat ion [Identifier] in Cervix by Cyto stain Gus Bradley PA-C Work Phone: Start: 07-26-2022 Echocardiography Evelyn Busch Work Phone: Start: 07-26-2022 Lipid 1996 panel - S negro or Plasma Gus Bradley PA-C Work Phone: Start: 05-29-2022 End: 05-29-2022 EKG impression Chuck Thorpe Start: 11-05-2020 Holter Monitor 3-14 Days Evelyn Busch Start: 10-26-2020 AMIE-WITHOUT REFLEX TO CLEO Evelyn Busch Start: 10-26-2020 Extractable nuclear antigen antibody any method Evelyn Busch Start: 10-26-2020 TSH WITH REFLEX TO F REE T4 IF ABNORMAL Evelyn Busch Start: 03-02-2020 Endoscopy - Upper GI Me corrina Busch Start: 10-22-2019 Radiologic examinati on knee 1/2 views Ernie Grove Work Phone: Start: 10-22-2019 Choriogonadotropin ( test) [Presence] in Urine Jose Eduardo Ta Work Phone: Start: 04-22-2019 GENERAL PROCEDURE Tate Rodriguez Tali Work Phone: Start: 04-22-2019 EMG AND NERVE CONDUC TION (SCANNED) Italia F Hipolito Work Phone: Start: 03-30-2019 MRI BRAIN, MRA BRAIN (OUTSIDE IMAGE) Italia Mcmillan Work Phone: Start: 03-30-2019 MRI of cervical spine M jeanette Murillo Hipolito Work Phone: Start: 03-13-2019 Sedimentation rate r bc automated Historical Provider Colonoscopy Evelyn manzo Operative procedure on knee Evelyn Busch Work Phone: Comment on above: ; Left knee 2019; Plan of Treatment Date Care Activity Detail Author Start: 2070 RSV High Risk: (Elde rly (60+) or Population) (1 - 1-dose 75+ series) RSV High Risk: (Elderly (60+) or Population) (1 - 1-dose 75+ series) [facility] Start: 2045 Zoster Vaccines (1 of 2) Zoste r Vaccines (1 of 2) [facility] Start: 06-11-2035 Urine microalbumin profile DTa P,Tdap,Td Vaccine (5 - Td or Tdap) [facility] Start: 07-26-2027 Lipid panel Lipid Panel [facility] Start: 03-05-2026 Diabetes mellitus screening Diabetes Screening [facility] Start: 01-17-2026 Screening for malign ant neoplasm of cervix [facility] Start: 11-26-2025 End: 11-26-2025 Patient encounter procedure 11/26/2025 9:00 AM EST Office Visit OB/Gynecology [address] [place] [address] Alba Rosa APRN.NAILER OPERATOR [address] [place] [address] ANNUAL OB/Gynecology Comment on above: ANNUAL Start: 10-21-2025 End: 10-21-2025 Patient encounter procedure 10/21/2025 8:30 AM EST Office Visit [facility] [address] [place] [phone] Tammy Simeon, SCRIPT GIRL-NAILER OPERATOR [address] [place] [address] [facility] Start: 08-27-2025 End: 08-27-2025 Patient encounter procedure OB/Gynecology Comment on above: NST NST/OB Start: 08-20-2025 End: 08-20-2025 Patient encounter procedure OB/Gynecology Comment on above: NST NST/OB Start: 08-13-2025 End: 08-13-2025 Patient encounter procedure OB/Gynecology Comment on above: NST NST/OB Start: 08-06-2025 End: 08-06-2025 Patient encounter procedure Maternal Medicine Comment on above: growth nst ob 32wk Start: 07-23-2025 End: 07-23-2025 Patient encounter procedure Maternal Medicine Comment on above: growth ob 32wk Start: 07-09-2025 RSV Vaccine (1 - Ris k 1-dose series) RSV Vaccine (1 - Risk 1-dose series) [facility] Start: 07-09-2025 End: 07-09-2025 Patient encounter procedure OB/Gynecology Comment on above: OB PENICILLIN ORAL CHAL LENGE Start: 06-25-2025 End: 06-25-2025 Diabetic care education 06/25/2025 12:00 PM EDT [facility] [place], [place] [id number] Joy Dennison, RD [address] [place] [address] Gestational diabetes Diabetes Education Comment on above: Gestational diabetes Start: 06-25-2025 End: 06-25-2025 Patient encounter procedure Maternal Medicine Comment on above: Encounter for superv ision of high risk in second trimester, antepartum (HCC) [O09.92] OB Start: 06-22-2025 End: 06-22-2025 Nursing evaluation of patient and report 06/22/2025 8:00 AM EDT Nurse Visit Diabetic Education [facility] [address] [place] [address] Bre Zamora RN Gestational diabetes Diabetic Education [facility] Comment on above: Gestational diabetes Start: 06-19-2025 End: 06-19-2025 ambulatory 06/19/2025 8:00 AM EDT Results Only [facility] [address] [place] [address] Request: GEST GLUC ROBERT, 3-HR, 100 GM, FASTING [facility] Comment on above: Request: GEST GLUC T OL, 3-HR, 100 GM, FASTING Start: 06-11-2025 End: 06-11-2025 Patient encounter procedure 06/11/2025 8:00 AM EDT Routine Office Visit OB/Gynecology [address] [place] [address] Lorraine Roldan, SCRIPT GIRL.CN [address] [place] [address] OB OB/Gynecology Comment on above: OB Start: 06-07-2025 Influenza vaccination Influenza Vacc ine (#1) [facility] Start: 06-04-2025 End: 06-04-2025 Patient encounter procedure 06/04/2025 8:30 AM EDT Office Visit Allergy [address] [phone] Taylor Wooten, SCRIPT GIRL.NAILER OPERATOR [address] [place] [address] PCN allergy during Allergy Comment on above: PCN allergy during p regnancy Start: 05-14-2025 End: 05-14-2025 Patient encounter procedure 05/14/2025 8:45 AM EDT Routine Office Visit OB/Gynecology [address] [place], [place] [address] Chrissie Aguilera APRN.NAILER OPERATOR [address] [place], [place] [phone] OB OB/Gynecology Comment on above: OB Start: 05-07-2025 End: 05-07-2025 Patient encounter procedure 05/07/2025 8:15 AM EDT Office Visit Allergy [address] [place] [address] Verena Barone MD [address] [place] [address] Allergy during Allergy Comment on above: Allergy during pregn jesenia Start: 04-16-2025 End: 04-16-2025 Patient encounter procedure Maternal Medicine Comment on above: Anatomy Scan OB Routine Start: 03-31-2025 End: 03-31-2025 Patient encounter procedure 03/31/2025 8:00 AM EDT [facility] [address] [place] [address] Evelyn Busch DO [address] [place] [address] [facility] Start: 03-19-2025 End: 06-18-2025 Chromosome 21 trisomy [Presence] in Blood or Tissue by Cytogenetics Work Phone: Comment on above: Expected: 03/19/2025 , Expires: 06/18/2025 Start: 03-19-2025 End: 06-18-2025 MYRIAD FORESIGHT CARRIER SCREEN [facility] Comment on above: Expected: 03/19/2025 , Expires: 06/18/2025 Start: 03-19-2025 End: 06-18-2025 Protein/Creatinine [Mass Ratio] in Urine [facility] Comment on above: Expected: 03/19/2025 , Expires: 06/18/2025 Start: 03-19-2025 End: 03-19-2025 Patient encounter procedure 03/19/2025 9:00 AM EDT Routine Office Visit OB/Gynecology [address] [place] [address] Lorraine Roldan APRN.CN [address] 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 Expected: 12/30/2024, Expires: 12/30/2025 [facility] Comment on above: Expected: 12/30/2024 , Expires: 12/30/2025 Start: 12-30-2024 End: 12-30-2025 LIPID PANEL W CALCULATED LDL LIPID PANEL W CALCULATED LDL Lab Routine 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 Expected: 12/30/2024, Expires: 12/30/2025 [facility] Comment on above: Expected: 12/30/2024 , Expires: 12/30/2025 Start: 12-30-2024 End: 12-30-2025 TSH W/FT4 REFLEX TSH W/FT4 REFLEX Lab Routine 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 Expected: 12/30/2024, Expires: 12/30/2025 [facility] Comment on above: Expected: 12/30/2024 , Expires: 12/30/2025 Start: 11-20-2024 End: 02-19-2025 17-Hydroxyprogesterone [Mass/volume] in Serum or Plasma [facility] Comment on above: Expected: 11/20/2024 , Expires: 02/19/2025 Start: 11-20-2024 End: 02-19-2025 DHEA-S BLD [facility] Comment on above: Expected: 11/20/2024 , Expires: 02/19/2025 Start: 11-20-2024 End: 02-19-2025 Estradiol (E2) [Mass/volume] in Serum or Plasma [facility] Comment on above: Expected: 11/20/2024 , Expires: 02/19/2025 Start: 11-20-2024 End: 02-19-2025 Follitropin [Units/volume] in Serum or Plasma [facility] Comment on above: Expected: 11/20/2024 , Expires: 02/19/2025 Start: 11-20-2024 End: 02-19-2025 Hemoglobin A1c in Blood [facility] Comment on above: Expected: 11/20/2024 , Expires: 02/19/2025 Start: 11-20-2024 End: 02-19-2025 Lutropin [Units/volume] in Serum or Plasma [facility] Comment on above: Expected: 11/20/2024 , Expires: 02/19/2025 Start: 11-20-2024 End: 02-19-2025 Prolactin [Mass/volume] in Serum or Plasma Work Phone: Comment on above: Expected: 11/20/2024 , Expires: 02/19/2025 Start: 11-20-2024 End: 02-19-2025 TESTOSTERONE, FREE AND TOTAL, BY EQUILIBRIUM ULTRAFILTRATION MASS SPECTROMETRY [facility] Comment on above: Expected: 11/20/2024 , Expires: 02/19/2025 Start: 10-23-2024 End: 11-23-2024 Thyrotropin [Units/volume] in Serum or Plasma [facility] Service Area Work Phone: Comment on above: Expected: 10/23/2024 (Approximate), Expires: 11/23/2024 Start: 10-23-2024 End: 10-23-2024 Patient encounter procedure 10/23/2024 8:30 AM EST Office Visit [facility] [address] [phone] Tammy Simeon, SCRIPT GIRL-NAILER OPERATOR [address] [facility], [facility] B, [address] [address] [facility] Start: 06-07-2024 COVID-19 VACCINE ( season) COVID-19 VACCINE ( season) [facility] Start: 06-07-2024 COVID-19 Vaccine ( season) COVID-19 Vaccine ( season) [facility] Start: 06-07-2024 Influenza vaccination Influenza Vacc ine (#1) [facility] Start: 04-17-2024 End: 04-17-2024 Patient encounter procedure 04/17/2024 9:30 AM EDT Office Visit [facility] [address] [phone] Tammy Simeon, SCRIPT GIRL-NAILER OPERATOR [address] [facility], [facility] B, [address] [address] [facility] Start: 03-10-2024 End: 03-10-2024 Patient encounter procedure 03/10/2024 3:40 PM EDT Office Visit [facility] [address] [address] [facility] [address] [place] [address] [place] [address] [address] Department [place] [address] [facility] Start: 03-10-2024 End: 03-10-2025 C reactive protein [Mass/volume] in Serum or Plasma C-Reactive Protein Lab Routine Arthralgia, unspecified joint Expected: 03/10/2024 (Approximate), Expires: 03/10/2025 [facility] Work Phone: Comment on above: Expected: 03/10/2024 (Approximate), Expires: 03/10/2025 Start: 03-10-2024 End: 03-10-2025 CBC W Auto Differential panel - Blood CBC and Auto Differential Lab Routine Arthralgia, unspecified joint Expected: 03/10/2024 (Approximate), Expires: 03/10/2025 [facility] Work Phone: Comment on above: Expected: 03/10/2024 (Approximate), Expires: 03/10/2025 Start: 03-10-2024 End: 03-10-2025 Comprehensive metabolic 2000 panel - Serum or Plasma Comprehensive Metabolic Panel Lab Routine Arthralgia, unspecified joint Expected: 03/10/2024 (Approximate), Expires: 03/10/2025 [facility] Work Phone: Comment on above: Expected: 03/10/2024 (Approximate), Expires: 03/10/2025 Start: 03-10-2024 End: 03-10-2025 Cyclic citrullinated peptide IgG Ab [Units/volume] in Serum or Plasma Citrulline Antibody, IgG Lab Routine Arthralgia, unspecified joint Expected: 03/10/2024 (Approximate), Expires: 03/10/2025 [facility] Work Phone: Comment on above: Expected: 03/10/2024 (Approximate), Expires: 03/10/2025 Start: 03-10-2024 End: 03-10-2025 Erythrocyte sedimentation rate Sedimentation Rate Lab Routine Arthralgia, unspecified joint Expected: 03/10/2024 (Approximate), Expires: 03/10/2025 [facility] Service Area Work Phone: Comment on above: Expected: 03/10/2024 (Approximate), Expires: 03/10/2025 Start: 03-10-2024 End: 03-10-2025 Nuclear Ab [Presence] in Serum by Hep2 substrate AMIE with Reflex to CLEO Lab Routine Arthralgia, unspecified joint Expected: 03/10/2024 (Approximate), Expires: 03/10/2025 [facility] Work Phone: Comment on above: Expected: 03/10/2024 (Approximate), Expires: 03/10/2025 Start: 03-10-2024 End: 03-10-2025 Rheumatoid factor [Units/volume] in Serum by Nephelometry Rheumatoid Factor Lab Routine Arthralgia, unspecified joint Expected: 03/10/2024 (Approximate), Expires: 03/10/2025 [facility] Work Phone: Comment on above: Expected: 03/10/2024 (Approximate), Expires: 03/10/2025 Start: 03-10-2024 End: 03-10-2025 XR Pelvis 3 Views XR pelvis 3+ views Imaging Routine Arthralgia, unspecified joint Expected: 03/10/2024, Expires: 03/10/2025 [facility] Work Phone: Comment on above: Expected: 03/10/2024 , Expires: 03/10/2025 Start: 01-23-2024 End: 01-23-2024 Patient encounter procedure [facility] Start: 01-09-2024 End: 01-09-2024 Patient encounter procedure 01/09/2024 9:30 AM EDT Office Visit [facility] [address] [phone] Tammy Simeon, SCRIPT GIRL-NAILER OPERATOR [address] [facility], [address], [address] [address] [facility] Start: 01-03-2024 End: 01-03-2024 Patient encounter procedure 01/03/2024 10:00 AM EDT Office Visit [facility] [address] [phone] Tammy Simeon, SCRIPT GIRL-NAILER OPERATOR [address] [facility], [address], [address] [place] [address] [facility] Start: 10-21-2023 End: 10-21-2023 Patient encounter procedure 10/21/2023 9:15 AM EST Office Visit [facility] [address] [facility] [address] [place] [phone] Ruben Daniel DO [address] [facility], [address] [place] [address] [facility] Start: 10-10-2023 End: 10-10-2023 Patient encounter procedure 10/10/2023 3:00 PM EST Office Visit [facility] [address] [facility] [address] [place] [phone] Evelyn Del Rio MD [address] [facility] [address] [place] [phone] [facility] Start: 09-25-2023 Subsequent hospital visit by physician 09/25/2023 Hospital Encounter [facility] [place] [address] [place] [phone] Evelyn Del Rio MD [address] [facility] [address] [phone] [facility] [place] Start: 09-05-2023 End: 09-05-2023 Patient encounter procedure 09/05/2023 2:00 PM EST Office Visit [facility] [address] [facility] [address] [place] [phone] Evelyn Del Rio MD [address] [facility], [facility] [address] [place] [address] [facility] Start: 08-14-2023 FUVGENERAL, Provider : Shari Muniz, Status: Pen, Time: 1:00 PM FUVGENERAL, Provider: Shari Muniz, Status: Pen, Time: 1:00 PM KJ-Prazvtbeg-Pcfz na 170 DO Work Phone: Start: 08-14-2023 Patient encounter procedure Outpatient [facility] Neu[facility] L[facility]pez Start: 14-Aug-2023 13:00 Shari Muniz S Intent [facility] Start: 08-06-2023 End: 08-06-2024 CBC panel - Blood by Automated count CBC Lab Routine RUQ abdominal pain Epigastric pain Nausea Expected: 08/06/2023 (Approximate), Expires: 08/06/2024 [facility] Work Phone: Comment on above: Expected: 08/06/2023 (Approximate), Expires: 08/06/2024 Start: 08-06-2023 End: 08-06-2024 Comprehensive metabolic 2000 panel - Serum or Plasma Comprehensive Metabolic Panel Lab Routine RUQ abdominal pain Epigastric pain Nausea Expected: 08/06/2023 (Approximate), Expires: 08/06/2024 [facility] Work Phone: Comment on above: Expected: 08/06/2023 (Approximate), Expires: 08/06/2024 Start: 08-06-2023 End: 08-06-2024 CT Abdomen and Pelvis W contrast IV CT abdomen pelvis w IV contrast Imaging Routine RUQ abdominal pain Epigastric pain Nausea Expected: 08/06/2023, Expires: 08/06/2024 [facility] Service Area Work Phone: Comment on above: Expected: 08/06/2023 , Expires: 08/06/2024 Start: 07-05-2023 FUVGENERAL, Provider : Tammy Simeon, Status: Pen, Time: 2:00 PM FUVGENERAL, Provider: Tammy Simeon, Status: Pen, Time: 2:00 PM HC-Bhpltwqnd-[place] [address] Work Phone: Start: 06-25-2023 Varicella vaccination Varicell a Vaccines (2 of 2 - 13+ 2-dose series) [facility] Start: 06-07-2023 COVID-19 Vaccine ( season) COVID-19 Vaccine ( season) [facility] Start: 06-07-2023 Influenza vaccination Influenza Vacc ine (#1) [facility] Start: 01-17-2023 Patient encounter procedure ANNUAL, Provider: Nancy Ross, Status: Pen, Time: 9:00 AM [address] Work Phone: Start: 01-04-2023 FUVGENERAL, Provider : Tammy Simeon, Status: Pen, Time: 3:30 PM FUVGENERAL, Provider: Tammy Simeon, Status: Pen, Time: 3:30 PM [place] [address] Work Phone: Start: 12-10-2022 Patient encounter procedure [facility] Start: 12-10-2022 RNVISIT, Provider: Erika GARCIA RN ASHLND 1,[id number], Status: Pen, Time: 2:00 PM RNVISIT, Provider: LAWANDA GARCIA RN ASHMAURILIO 1,[id number], Status: Pen, Time: 2:00 PM [address] Work Phone: Start: 11-29-2022 FUV, Provider: Jie Seymour, Status: Pen, Time: 2:00 PM FUV, Provider: Jie Seymour, Status: Pen, Time: 2:00 PM [facility] Work Phone: Start: 11-21-2022 NPVGENERAL, Provider : Som Rosas, Status: Pen, Time: 2:30 PM NPVGENERAL, Provider: Som Rosas, Status: Pen, Time: 2:30 PM [facility] Work Phone: Start: 11-21-2022 Patient encounter procedure [facility] Neurology [place] Start: 10-17-2022 FUV, Provider: Tobias Campos, Status: Pen, Time: 11:45 AM FUV, Provider: Tobias Campos, Status: Pen, Time: 11:45 AM [facility] Work Phone: Start: 10-12-2022 AUTONOMIC, Provider: AMARI 5,NEURODIAG, Status: Pen, Time: 1:00 PM AUTONOMIC, Provider: AMARI 5,NEURODIAG, Status: Pen, Time: 1:00 [address] [address] [place] Work Phone: Start: 10-12-[address] [facility] [address] Start: 10-10-2022 Patient encounter procedure [facility] Start: 2022 HPV Vaccine (1 - 3-d ose SCDM series) HPV Vaccine (1 - 3-dose SCDM series) [facility] Start: 09-17-2022 RNVISIT, Provider: Erika NOVAK 1,[id number], Status: Pen, Time: 2:00 PM RNVISIT, Provider: LAWANDA NOVAK 1,[id number], Status: Pen, Time: 2:00 PM [address] [address] [place] Work Phone: Start: 08-15-2022 FUVGENERAL, Provider : Shari Muniz, Status: Pen, Time: 1:00 PM FUVGENERAL, Provider: FlavioLung, Status: Pen, Time: 1:00 PM AB-Cxfmuodua-Caud na 170 DO Work Phone: Start: 08-15-2022 Patient encounter procedure [facility] [place] Start: 07-26-2022 ECHO, Provider: LUZ ELENA PROCTORI ECHO 2,[id number], Status: Pen, Time: 11:30 AM ECHO, Provider: THEO PROCTORI ECHO 2,[id number], Status: Pen, Time: 11:30 AM [facility] Work Phone: Start: 07-26-2022 STRESS TERRI, Provider : THEO PROCTORI STRESS 2,[id number], Status: Pen, Time: 10:00 AM STRESS TERRI, Provider: THEO PROCTORI STRESS 2,[id number], Status: Pen, Time: 10:00 AM [facility] Work Phone: Start: 07-19-2022 NPV, Provider: Tobias Campos, Status: Pen, Time: 11:30 AM NPV, Provider: Tobias Campos, Status: Pen, Time: 11:30 AM [facility] Work Phone: Start: 06-25-2022 RNVISIT, Provider: Erika SILVERIO HOLINESS RN ASHLND 1,[id number], Status: Pen, Time: 2:15 PM RNVISIT, Provider: LAWANDA GARCIA RN ASHLND 1,[id number], Status: Pen, Time: 2:[address] Work Phone: Start: 06-12-2022 DRYNDL, Provider: Mehnaz Martinez, Status: Pen, Time: 2:45 PM DRYNDL, Provider: Mehnaz Martinez, Status: Pen, Time: 2:45 PM [facility] [address] [place] Work Phone: Start: 05-30-2022 DRYNDL, Provider: Mehnaz Martinez, Status: Pen, Time: 2:00 PM DRYNDL, Provider: Mehnaz Martinez, Status: Pen, Time: 2:00 PM [facility] Work Phone: Start: 05-30-2022 Patient encounter procedure Outpatient [facility] [address] [place] [address] Start: 30-May-2022 14:00 Flavio, Lung S Intent [facility] Start: 05-25-2022 FUV, Provider: Evelyn Busch, Status: Pen, Time: 1:20 PM FUV, Provider: Evelyn Busch, Status: Pen, Time: 1:20 PM [facility] [place] Work Phone: Start: 05-23-2022 DRYNDL, Provider: Mehnaz Martinez, Status: Pen, Time: 1:15 PM DRYNDL, Provider: Mehnaz Martinez, Status: Pen, Time: 1:15 PM [facility] Work Phone: Start: 05-15-2022 DRYNDL, Provider: Mehnaz Martinez, Status: Pen, Time: 10:45 AM DRYNDL, Provider: Mehnaz Martinez, Status: Pen, Time: 10:45 AM [facility] Work Phone: Start: 04-18-2022 FUVGENERAL, Provider : Shari Muniz, Status: Pen, Time: 1:00 PM FUVGENERAL, Provider: Shari Muniz, Status: Pen, Time: 1:00 PM [facility]-Jxjbigtrr-Areo na 170 DO Work Phone: Start: 03-06-2022 COVID-19 Vaccine (4 - Moderna series) COVID-19 Vaccine (4 - Moderna series) [facility] Start: 01-17-2022 FUVGENERAL, Provider : Shari Muniz, Status: Pen, Time: 1:00 PM FUVGENERAL, Provider: Shari Muniz, Status: Pen, Time: 1:00 PM VR-Womtultot-Porl na 170 DO Work Phone: Start: 01-17-2022 FUVGENERAL, Provider : Shari Muniz, Status: Pen, Time: 11:00 AM FUVGENERAL, Provider: FlavioLung, Status: Pen, Time: 11:00 AM DC-Hovonznfd-Nevg na 170 DO Work Phone: Start: 12-20-2021 FUV, Provider: Evelyn Busch, Status: Pen, Time: 1:40 PM FUV, Provider: Evelyn Busch, Status: Pen, Time: 1:40 PM [facility] Work Phone: Start: 10-18-2021 NPVGENERAL, Provider : FlavioLung, Status: Pen, Time: 10:30 AM NPVGENERAL, Provider: Flavio,Lung, Status: Pen, Time: 10:30 AM [facility] Work Phone: Start: 08-29-2021 FUV, Provider: Evelyn Busch, Status: Karl, Time: 1:40 PM FUV, Provider: Evelyn Busch, Status: Pen, Time: 1:40 PM [facility] Work Phone: Start: 09-09-2020 End: 09-09-2020 Follow-Up 09/09/2020 Follow-Up Sports Medicine Ernie Grove MD [address] [place] [address] [phone] [facility] Start: 08-05-2020 End: 08-05-2020 Follow-Up 08/05/2020 Follow-Up Sports Medicine Ernie Grove MD [address] [place] [address] [place] [address] [phone] [facility] Start: 06-07-2020 Influenza vaccinatio n given Sequential Influenza Vaccine (#1) [facility] Start: 01-18-2020 End: 01-18-2020 Follow-Up 01/18/2020 Follow-Up Sports Medicine Ernie Grove MD [address] [place] [address] [phone] [facility] Start: 12-07-2019 End: 12-07-2019 Follow-Up 12/07/2019 Follow-Up Sports Medicine Ernie Grove MD [address] [place] [address] [phone] [facility] Start: 11-09-2019 End: 11-09-2019 Follow-Up 11/09/2019 Follow-Up Sports Medicine Ernie Grove MD [address] [place] [address] [phone] [facility] Start: 08-25-2019 End: 08-25-2019 Office Visit 08/25/2019 Office Visit Neurology Italia Mcmillan, DO [address] [facility] [place] [address] [phone] [facility] Start: 06-13-2019 End: 03-13-2020 Electromyography EMG & NERVE CONDUCTION Neurology Routine Muscle weakness (generalized) Expected: 06/13/2019, Expires: 03/13/2020 [facility] Comment on above: Expected: 06/13/2019 , Expires: 03/13/2020 Start: 06-07-2019 Influenza vaccination O [facility] Start: 06-07-2019 Influenza vaccinatio n given SEQUENTIAL INFLUENZA VACCINE (#1) [facility] Start: 04-29-2019 End: 04-29-2019 Office Visit 04/29/2019 Office Visit Neurology Italia Mcmillan, DO [address] [facility] [address] [phone] [facility] Start: 04-22-2019 End: 04-22-2019 Office Visit [facility] Start: 03-13-2019 End: 03-13-2020 MRI angiography of head MRI ARTERIOGRAM BRAIN WITHOUT CONTRAST Imaging Routine Worst headache of life Expected: 03/13/2019, Expires: 03/13/2020 [facility] Comment on above: Expected: 03/13/2019 , Expires: 03/13/2020 Start: 03-13-2019 End: 03-13-2020 MRI of cervical spine MRI SPINE CERVICAL WITHOUT CONTRAST Imaging Routine Muscle weakness (generalized) Numbness and tingling in both hands Expected: 03/13/2019, Expires: 03/13/2020 [facility] Comment on above: Expected: 03/13/2019 , Expires: 03/13/2020 Start: 03-13-2019 End: 03-13-2020 SEDIMENTATION RATE, AUTOMATED SEDIMENTATION RATE, AUTOMATED Lab Routine Worst headache of life Expected: 03/13/2019, Expires: 03/13/2020 [facility] Comment on above: Expected: 03/13/2019 , Expires: 03/13/2020 Start: 03-13-2019 End: 03-13-2019 Office Visit 03/13/2019 Office Visit Neurology Italia Mcmillan, DO [address] [facility] [place] [id number] [phone] Arrived [facility] Comment on above: Arrived Start: 06-07-2018 Influenza vaccination SEQUENTI AL INFLUENZA VACCINE (Season Ended) [facility] Start: 2017 DTaP/Tdap/Td Vaccine s (4 - Tdap) DTaP/Tdap/Td Vaccines (4 - Tdap) [facility] Start: 06-07-2017 Influenza vaccination SEQUENTI AL INFLUENZA VACCINE (#1) [facility] Start: 2016 Screening for malign ant neoplasm of cervix [facility] Start: 2014 Hepatitis B vaccination HEP B VACCINE (1 of 3 - 19+ 3-dose series) [facility] Start: 2014 Third diphtheria, te tanus and acellular pertussis (DTaP) vaccination TDAP (ADULT) [facility] Start: 2014 Urine microalbumin profile DTa P,Tdap,Td Vaccine (4 - Tdap) [facility] Start: 2013 Anxiety Screening Anxiety Screening [facility] Start: 2013 Depression Screening Depression Scre [facility] Start: 2013 Diabetes mellitus screening Diabetes Screening [facility] Start: 2013 Hepatitis C antibody , confirmatory test Hepatitis C Screening [facility] Start: 2013 Hepatitis C screening Hepatitis C Sc reening [facility] Start: 2013 HIV screening HIV Screening [facility] Start: 2013 Tetanus vaccination TETANUS [facility] Start: 2011 Screening for Chlamy azalia trachomatis CHLAMYDIA SCREEN [facility] Start: 2010 HIV screening [facility] Start: 2010 Vaccination for alvaro n papillomavirus HPV VACCINE ADOL (1 - Female 3-dose series) [facility] Start: 2008 HIV screening HIV SCREENING DISCUSSION [facility] Start: 2007 Adolescent depressio n screening assessment Depression Screening (PHQ9) [facility] Start: 2006 Vaccination for alvaro n papillomavirus [facility] Start: 1999 IPV Vaccines (4 of 4 - 4-dose series) IPV Vaccines (4 of 4 - 4-dose series) [facility] Start: 1998 History and physical examination, annual for health maintenance Wellness Visit [facility] Start: 1995 Depression screening using PHQ-9 (Patient Health Questionnaire 9) score DEPRESSION SCREENING (PHQ9) [facility] Start: 1995 GONORRHEA SCREEN GONORRHEA SCREEN OS U [facility] Start: 1995 Hepatitis C screening HEPATITI S C VIRUS SCREENING [facility] Start: 1995 HIV screening HIV Screening [facility] Start: 1995 Screening for Chlamy azalia trachomatis Chlamydia Screening [facility] Start: 1995 Screening for malign ant neoplasm of cervix [facility] Start: [address] [facility] Start: 1995 Yearly Adult Physical Yearly Adult P hycal [facility] End: 03-23-2025 Bacteria identified in Urine by Culture [facility] Work Phone: Comment on above: Once (Lab) for 1 Occ urrences starting 03/23/2025 until 03/23/2025 End: 09-25-2023 Choriogonadotropin ( test) [Presence] in Urine [facility] Work Phone: Comment on above: Once (Lab) for 1 Occ urrences starting 09/25/2023 until 09/25/2023 STAT (Lab) for 1 Occ urrences starting 09/25/2023 until 09/25/2023 End: 03-23-2025 Extra Urine Parra Tube [facility] Work Phone: Comment on above: Once for 1 Occurrenc es starting 03/23/2025 until 03/23/2025 Glucose [Mass/volume ] in Serum or Plasma POCT Glucose Point of Care Testing - Docked Device Routine As needed (Lab) until discontinued starting 09/25/2023 [facility] Work Phone: Comment on above: As needed (Lab) unti l discontinued starting 09/25/2023 Laparoscopy surg cholecystectomy Cholecystectomy Laparoscopy Biliary dyskinesia Virtual PAUL OR Needle emg ea extrem ty w/paraspinl area complete ID NEEDLE EMG EA EXTREMTY W/PARASPINL AREA COMPLETE ID Charge Routine Bilateral numbness and tingling of arms and legs Ordered: 04/22/2019 [facility] Comment on above: Ordered: 04/22/2019 Nerve conduction rhys dies 13/> studies ID NERVE CONDUCTION STUDIES 13/> STUDIES ID Charge Routine Bilateral numbness and tingling of arms and legs Ordered: 04/22/2019 [facility] Comment on above: Ordered: 04/22/2019 End: 10-13-2025 OBSTETRIC ULTRASOUND WHI OBSTETRIC ULTRASOUND [facility] Anc Imaging Routine Obesity in (HCC) Low-lying placenta without hemorrhage, second trimester (HCC) Once per month for 5 Occurrences starting 04/16/2025 until 10/13/2025 Work Phone: Comment on above: Once per month for 5 Occurrences starting 04/16/2025 until 10/13/2025 Surgical pathology study Surgica l Pathology Exam Pathology and Cytology Routine Biliary dyskinesia Release Upon Ordering for 1 Occurrences starting 09/25/2023 [facility] Work Phone: Comment on above: Release Upon Orderin g for 1 Occurrences starting 09/25/2023 End: 03-23-2025 Urinalysis complete W Reflex Culture panel - Urine [facility] Service Area Work Phone: Comment on above: Once (Lab) for 1 Occ urrences starting 03/23/2025 until 03/23/2025 End: 08-09-2023 US Abdomen [facility] Service [facility] Work Phone: Comment on above: Once for 1 Occurrenc es starting 08/09/2023 until 08/09/2023 End: 12-27-2023 XR Foot - left 3 Views [facility] Work Phone: Comment on above: Once for 1 Occurrenc es starting 12/27/2023 until 12/27/2023 End: 03-11-2024 XR Pelvis 1 or 2 Views [facility] Service [facility] Work Phone: Comment on above: Once for 1 Occurrenc es starting 03/11/2024 until 03/11/2024 NEGATED: Highlighted row has been ruled out! Planned Goals not documented [facility] Work Phone: Immunizations Immunization Date Immunization Notes Care Provider Alayna muñoz 06-11-2025 influenza, seasonal, injectable, preservative free Lorraine Roldan SCRIPT GIRL.CNM Work Phone: [facility] 06-11-2025 tetanus toxoid, redu ryan diphtheria toxoid, and acellular pertussis vaccine, adsorbed Lorraine Roldan SCRIPT GIRL.CNM Work Phone: [facility] 08-31-2024 influenza, seasonal, injectable, preservative free Tammy Simeon SCRIPT GIRL-NAILER OPERATOR Work Phone: [facility] 08-31-2024 influenza virus vaccine, unspecified formulation Whi Mob [facility] 12-31-2023 hepatitis B vaccine, adult dosage Alba Briseyda SCRIPT GIRL.NAILER OPERATOR Work Phone: [facility] 09-04-2023 influenza, injectabl e, quadrivalent, preservative free Evelyn Del Rio MD Work Phone: [facility] Work Phone: 09-04-2023 influenza virus vaccine, unspecified formulation Tammy Simeon SCRIPT GIRL-NAILER OPERATOR Work Phone: [facility] Work Phone: 05-28-2023 hepatitis B vaccine, adult dosage Alba [place] SCRIPT GIRL.NAILER OPERATOR Work Phone: [facility] 05-28-2023 measles, mumps and rubella virus vaccine Alba Briseyda SCRIPT GIRL.NAILER OPERATOR Work Phone: [facility] 05-28-2023 varicella virus vaccine Gus Bradley PA-C Work Phone: [facility] Work Phone: 01-09-2022 Moderna COVID-19 Vaccine 100 MCG/0.5ML Intramuscular Suspension Evelyn Busch Work Phone: [facility] 170 DO Work Phone: Comment on above: Series: 01-25-2021 Moderna COVID-19 Vaccine 100 MCG/0.5ML Intramuscular Suspension Evelyn Busch Work Phone: [facility] Work Phone: 12-28-2020 Moderna COVID-19 Vaccine 100 MCG/0.5ML Intramuscular Suspension Evelyn Arzolaer Work Phone: [facility] Work Phone: 08-25-2009 novel [id number], preservative-free, injectable Evelyn Arzolaer Work Phone: [facility] Work Phone: 08-25-2009 influenza virus vaccine, unspecified formulation Gus Bradley PA-C Work Phone: [facility] Work Phone: 05-06-1996 DTP-Haemophilus influenzae type b conjugate vaccine Evelyn Qing [place] Work Phone: [facility] Work Phone: 05-06-1996 hepatitis B vaccine, pediatric or pediatric/adolescent dosage Evelyn Qing [place] Work Phone: [facility] Work Phone: 05-06-1996 trivalent poliovirus vaccine, live, oral Evelyn Qing [place] Work Phone: [facility] Work Phone: 05-06-1996 poliovirus vaccine, unspecified formulation Sanya Arana PA-C Work Phone: [facility] Work Phone: 03-04-1996 DTP-Haemophilus influenzae type b conjugate vaccine Evelyn L [place] Work Phone: [facility] Work Phone: 03-04-1996 trivalent poliovirus vaccine, live, oral Evelyn L [place] Work Phone: [facility] Work Phone: 1995 DTP-Haemophilus influenzae type b conjugate vaccine Evelyn Busch Work Phone: [facility] Work Phone: 1995 hepatitis B vaccine, pediatric or pediatric/adolescent dosage Evelyn Busch Work Phone: [facility] Work Phone: 1995 trivalent poliovirus vaccine, live, oral Evelyn Busch Work Phone: [facility] Work Phone: 1995 hepatitis B vaccine, pediatric or pediatric/adolescent dosage Evelyn Busch Work Phone: [facility] Work Phone: Payers Date Payer Category Payer Self-pay 2023 [employer] [place] [facility] [id number] [facility] Care [facility] [id number]. [id number] 2023 Blue Cross Blue [facility] [id number] 2.16.840.1.679495.19 2019 Unknown [id number] 2019 Unknown ANTHEM ANTHEM BLUE/PREF/HMO/PPO [id number] 2019-Present [id number] [id number]. 7.3.246898.315 2018 Managed Care (unspecified) ANTHEM HMO PPO POS [id number]. [id number] 2018 Unknown [id number] 2.16.840.1.889456.3.249.13 2017 Unknown 2016 Unknown [id number] 1995 Unknown [id number] 2..840.1.384524.3.579.2. 900 1995 Unknown [id number] 2.16.840.1.970484.3.579.2. 900 1995 Unknown [id number] 2.16.840.1.147082.3.579.2. 903 1995 Unknown [id number] 2.16.840.1.289101.3.579.2. 903 1995 Unknown [id number] 2.16.840.1.288152.3.579.2. 903 1995 Unknown [id number] 2.16.840.1.910137.3.579.2. 1995 Unknown [id number] 2.16840.1.573781.3.579.2. 1995 Unknown [id number] 2.16840.1.308848.3.579.2. 1995 Unknown [id number] 2.16840.1.936615.3.579.2. 1995 Unknown [id number] 2.16840.1.259208.3.579.2. 1995 Unknown [id number] 2.16840.1.869307.3.579.2. 1068 1995 Unknown [id number] 2.16840.1.199026.3.579.2. 1068 1995 Unknown [id number] 2.840.1.808749.3.579.2. 1068 1995 Unknown [id number] 2.840.1.093270.3.579.2. 1068 1995 Unknown [id number] 2.16840.1.630098.3.579.2. 1068 1995 Unknown [id number] 2.16840.1.803263.3.579.2. 1068 1995 Unknown [id number] 2.16840.1.109420.3.579.2. 1068 1995 Unknown [id number] 2.16840.1.127542.3.579.2. 1068 1995 Unknown [id number] 2.16840.1.843021.3.579.2. 1068 1995 Unknown [id number] 2.16840.1.095092.3.579.2. 1068 1995 Unknown [id number] 2.16840.1.505161.3.579.2. 1068 1995 Unknown [id number] 2.16840.1.471598.3.579.2. 1069 1995 Unknown [id number] 2.840.1.503668.3.579.2. 356 1995 Unknown [id number] 2.840.1.672732.3.579.2. 356 1995 Unknown [id number] 2.840.1.439794.3.579.2. 356 1995 Unknown [id number] 2.840.1.215746.3.579.2. 356 1995 Unknown [id number] 2.840.1.566234.3.579.2. 356 1995 Unknown [id number] 2.840.1.156608.3.579.2. 356 1995 Unknown [id number] 2.840.1.023651.3.579.2. 356 1995 Unknown [id number] 2.840.1.479331.3.579.2. 356 1995 Unknown [id number] 2.840.1.452357.3.579.2. 356 1995 Unknown [id number] 2.840.1.825062.3.579.2. 356 1995 Unknown [id number] 2840.1.134468.3.579.2. 356 1995 Unknown [id number] 840.1.371666.3.579.2. 356 1995 Unknown [id number] 840.1.687964.3.579.2. 1245 1995 Unknown [id number] 840.1.077361.3.579.2. 124 1995 Unknown [id number] 2840.1.761768.3.579.2. 1245 1995 Unknown [id number] 840.1.479896.3.579.2. 1244 1995 Unknown [id number] 2.16.840.1.600958.3.579.2. 1244 1995 Unknown [id number] 2.16.840.1.580022.3.579.2. 1244 1995 Unknown [id number] 2.16.840.1.723162.3.579.2. 983 1995 Unknown [id number] 2.16.840.1.813773.3.579.2. 1243 Unknown [id number] Unknown [id number] 2.16.840.1.261266.3.579.2. 462 Social History Date Type Detail Facility Start: 02-24-2018 End: 11-20-2024 Tobacco smoking status NHIS Never smoker [facility] Start: 1995 Sex Assigned At Not on file [facility] Start: 08-27-2019 End: 09-10-2020 Alcohol intake Current non-drinker of alcohol (finding) [facility] Exposure to SARS-CoV-2 (event) Unable to assess [facility] Start: 07-20-2020 End: 11-20-2024 Tobacco use and exposure Never used [facility] Start: 07-27-2023 End: 10-23-2024 Exposure to SARS-CoV-2 (event) Not sure [facility] Start: 08-06-2023 End: 01-29-2025 Never a smoker Never a smoker -[facility] Work Phone: Tobacco smoking consumption unknown [facility] Start: 08-06-2023 End: 01-29-2025 Sex Assigned At [place] Other Start: 08-06-2023 End: 09-05-2023 Alcohol intake Ex-drinker (finding) [facility] Work Phone: Start: 09-25-2023 End: 03-23-2025 Alcohol intake Current drinker of alcohol (finding) [facility] Work Phone: Start: 09-25-2023 Alcohol Comment occass [facility] Work Phone: Start: 11-20-2024 End: 06-04-2025 Alcoholic beverage intake Lifetime non-drinker (finding) [facility] Start: 09-28-2024 National Score (1-100), lower number is lower risk 58 [facility] Start: 08-28-2019 Alcohol Comment only a couple times a year [facility] Start: 02-13-2019 Sex Female (finding) [facility] Start: 12-29-2024 Gender identity Identifies as female gender (finding) [facility] Start: 12-29-2024 Sexual orientation Heterosexual (fin ding) [facility] Start: 01-28-2025 Education 17 [facility] Start: 12-11-2024 [facility] Start: 1995 Sex assigned at Female C [facility] NEGATED: Highlighted row - [facility] Work Phone: Medical Equipment Procedure Code Equipment Code Equipment Origin al Text Equipment Identifier Dates Screw 4 X 38mm C syed Short Thrd - [id number] Start: 10-22-2019 Screw 4 X 40mm C syed Short Thrd - [id number] Start: 10-22-2019 Use as directed to check glucose levels up to seven times daily. [id number] Start: 06-21-2025 Use as directed to check glucose levels up to seven times daily. [id number] Start: 06-21-2025 Goals Date Patient Goal Desired Activity /State Personal health goal Functional Status Date Assessment Result Facility 03-23-2025 [place] - suicide severity rating scale screener - recent [C-SSRS] [facility] Work Phone: NEGATED: Highlighted row Functional performance Functional status health issues are not documented Disease [facility] Work Phone: Mental Status Date Assessment Result Facility NEGATED: Highlighted row Cognitive function [Interpretation] Cognitive status health issues are not documented [facility] Work Phone: Clinical Notes 01-05-2019 to 08-06-2025 Telephone Encounter - Eulalia Rondon RN - 06/21/2025 11:30 AM EDTTelephone Encounter - Eulalia Rondon, RN - 06/21/2025 11:30 AM Hilda Dickerson LPN - 06/11/2025 7:36 AM EDTPatient Instructions Note Date & Type Note Facility 08-06-2025 Note HNO ID: [id number] Author: SHAQUILLE POON MD Service: ? Author Type: Physician Type: Progress Notes Filed: 08/06/2025 10:20 Note Text: NST SUMMARY PROVIDER ASSESSMENT AND INTERPRETATION Jennifer Henley is a 29 year old female, , who is at 36w0d with an LILIANE of 09/03/2025, by Last Menstrual Period dating method. Indications for NST: Diabetes - Diet Controlled and Obesity Baseline: 120 Variability: Moderate Accelerations: Present 15 X 15 Decelerations: None Contractions: TOCO: None Interpretation: Category I and Reactive SIGNATURE: Shaquille White MD [facility] 07-19-2025 Note HNO ID: [id number] Author: SHAQUILLE POON MD Service: ? Author Type: Physician Type: Progress Notes Filed: 07/19/2025 11:00 Note Text: NST SUMMARY PROVIDER ASSESSMENT AND INTERPRETATION Jennifer Henley is a 29 year old female, , who is at 33w3d with an LILIANE of 09/03/2025, by Last Menstrual Period dating method. Indications for NST: Decreased Movement Baseline: 120 Variability: Moderate Accelerations: Present 15 X 15 Decelerations: None Contractions: TOCO: None Interpretation: Category I and Reactive SIGNATURE: Shaquille White MD [facility] 07-09-2025 Note HNO ID: [id number] Author: AGNES DEL CID RN Service: ? Author Type: Registered Nurse Type: Progress Notes Filed: 07/09/2025 16:12 Note Text: Skin testing Med information Pen-G ND: 5542-8655-28 Lot: [id number] Exp: 05/2027 PrePen NDC: 31591-263-54 Lot: [id number] Exp: 07/2026 [facility] 07-09-2025 Note HNO ID: [id number] Author: TAYLOR WOOTEN APRN.NAILER OPERATOR Service: ? Author Type: Nurse Practitioner Type: Progress Notes Filed: 07/09/2025 16:12 Note Text: Allergy AND Clinical Immunology HPI Jennifer Henley is a 29 year old female who presents for oral challenge to Amoxicillin. The following assessment and plan was recorded and discussed at her last visit on 06/04/25: Assessment/Plan: 1. Adverse effect of penicillin, initial encounter - ICD9: E930.0, ICD10: T36.0X5A History of rash in infancy. Skin testing negative suggesting that she does not have an IgE-mediated penicillin allergy. Need to complete oral challenge for definitive evaluation. - Return after 28 weeks for graded oral challenge to Amoxicillin - In the meantime, continue to avoid penicillin antibiotics - Advised no antihistamines 5 days prior to challenge visit 2. Adverse effect of cephalosporin, initial encounter - ICD9: E930.5, ICD10: T36.1X5A History of generalized pruritus after taking cephalexin last year. Low suspicion for IgE-mediated allergy. Discussed returning for oral challenge when no longer . In the meantime, continue to avoid cephalexin, taking equally efficacious alternatives as indicted. 3. 27 weeks gestation of - ICD9: V22.2, ICD10: Z3A.27 Discussed benefit of penicillin allergy evaluation in the context of Taylor Wooten APRN.NAILER OPERATOR Interim History Patient is 32 weeks . Reports feeling well with no complaints. No antihistamines in the last 5 days. ALLERGIES Allergen Reactions Penicillins Hives Adhesive Hives Sutures Hives Cephalexin Itching PAST MEDICAL HISTORY Diagnosis Date IBS (irritable bowel syndrome) Migraine headache with aura POTS (postural orthostatic tachycardia syndrome) PAST SURGICAL HISTORY Procedure Laterality Date KNEE LEFT OP SURGERY Left REMOVAL GALLBLADDER FAMILY HISTORY Problem Relation Age of Onset other (scleroderma) Mother other (congestive heart) Father Alzheimer's Disease Maternal Grandmother SOCIAL HISTORY[1] Current Outpatient Medications on File Prior to Visit Medication Sig ferrous sulfate EC 324 mg (65 mg iron) TbEC Take 325 mg by mouth every other day. famotidine (PEPCID) 20 mg tablet Take 1 tablet by mouth two times a day. aspirin, enteric coated (ECOTRIN LOW STRENGTH) 81 mg EC tablet Take 1 tablet by mouth once daily. vits18/iron/folic/dss (PRENACARE ORAL) Take 1 tablet by mouth once daily. Blood-Glucose Sensor (DEXCOM G7 SENSOR) joni 3 devices as directed. Blood-Glucose Meter,Continuous (DEXCOM G7 FINANCE ASSOCIATE) misc 1 device as directed. blood sugar diagnostic test strip Use as directed to check glucose levels up to seven times daily. Lancets Use as directed to check glucose levels up to seven times daily. alcohol swabs (ALCOHOL PREP PADS) Use as directed to check glucose levels up to seven times daily. cyproheptadine (PERIACTIN) 4 mg tablet Take 1 tablet by mouth three times a day as needed (migraines). labetalol (TRANDATE) 100 mg tablet Take 100 mg by mouth at bedtime as needed. No current facility-administered medications on file prior to visit. Review of Systems Constitutional: Negative for chills, fatigue and fever. HENT: Negative for congestion and rhinorrhea. Respiratory: Negative for cough, chest tightness, shortness of breath and wheezing. Cardiovascular: Negative for chest pain, palpitations and leg swelling. Gastrointestinal: Negative for abdominal pain, constipation, diarrhea, nausea and vomiting. Skin: Negative for rash. Pulse 91, weight 108.1 kg (238 lb 5.1 oz), last menstrual period 11/27/2024, SpO2 97%. Body mass index is 40.91 kg/m?. Physical Exam Constitutional: General: She is not in acute distress. HENT: Mouth/Throat: Mouth: Mucous membranes are moist. Pharynx: Oropharynx is clear. No oropharyngeal exudate or posterior oropharyngeal erythema. Cardiovascular: Rate and Rhythm: Normal rate and regular rhythm. Heart sounds: Normal heart sounds. Pulmonary: Effort: Pulmonary effort is normal. No respiratory distress. Breath sounds: Normal breath sounds. Skin: Findings: No rash. Neurological: Mental Status: She is alert and oriented to person, place, and time. Penicillin Skin Testing: ALLERGEN (06/04/25): Penicillin G (Percutaneous): 0 mm, 0 mm PrePen (Percutaneous): 0 mm, 0 mm Ampicillin (Percutaneous): 0 mm, 0 mm CONTROL: 0 mm, 0 mm HISTAMINE: 4 mm, 10 mm Penicillin G (Intradermal): 0 mm, 0 mm PrePen (Intradermal): 0 mm, 0 mm Ampicillin (Intradermal): 0 mm, 0 mm CONTROL: 7 mm, 12 mm Ingestion Challenge: I have reviewed the risks (including the potential for life threatening anaphylaxis), benefits and alternatives of the oral ingestion challenge being performed today with patient who expressed understanding and a desire to complete challenge today. The benefits of the penicillin julio (more content not included)... [facility] 06-25-2025 Note HNO ID: [id number] Author: JOY DENNISON RD Service: ? Author Type: Registered Dietitian Type: Progress Notes Filed: 06/25/2025 12:22 Note Text: [facility] Medical Nutrition Therapy Visit Type: Virtual: I have discussed the nature of this visit with the patient which will occur via [facility] (Phone, Virtual Visit) and she agrees to proceed with this interaction. Patient states reason for visit: Gestational Diabetes Diet Management Initial Pt saw ASHLEY LANDEROS for GDM education yesterday. DEMOGRAPHICS: Co-Morbidities: PAST MEDICAL HISTORY Diagnosis Date IBS (irritable bowel syndrome) Migraine headache with aura POTS (postural orthostatic tachycardia syndrome) Activity: Do you do a regular exercise No. POTS makes it difficult Symptoms: Patient's symptoms are as follows: None How many hours of sleep on average? Did not report Diet History: Breakfast: eggs with cheese OR egg sandwich OR keto bagels Snack: apples and caramel Lunch: salad with apples Dinner: chicken and rice, spaghetti, pasta meal with chicken Snack: carb smart ice cream OR frozen yogurt bars OR cereal Fluids: water, 1-2 zero sugar pop ETOH : n/a Allergies: No Food Allergy Patient / Provider Comments: Pt has meter but is interested in CGM. Will reach out to referring provider for Dexcom G7 prescription. Medications: Current Outpatient Medications Medication Sig ferrous sulfate EC 324 mg (65 mg iron) TbEC Take 325 mg by mouth every other day. blood sugar diagnostic test strip Use as directed to check glucose levels up to seven times daily. Lancets Use as directed to check glucose levels up to seven times daily. alcohol swabs (ALCOHOL PREP PADS) Use as directed to check glucose levels up to seven times daily. cyproheptadine (PERIACTIN) 4 mg tablet Take 1 tablet by mouth three times a day as needed (migraines). famotidine (PEPCID) 20 mg tablet Take 1 tablet by mouth two times a day. labetalol (TRANDATE) 100 mg tablet Take 100 mg by mouth at bedtime as needed. aspirin, enteric coated (ECOTRIN LOW STRENGTH) 81 mg EC tablet Take 1 tablet by mouth once daily. vits18/iron/folic/dss (PRENACARE ORAL) Take 1 tablet by mouth once daily. No current facility-administered medications for this visit. Labs: Glucose (mg/dL) Date Value 03/19/2025 87 Potassium (mmol/L) Date Value 03/19/2025 3.9 Sodium (mmol/L) Date Value 03/19/2025 138 Chloride (mmol/L) Date Value 03/19/2025 105 CO2 (mmol/L) Date Value 03/19/2025 22 Creatinine (mg/dL) Date Value 03/19/2025 0.60 BUN (mg/dL) Date Value 03/19/2025 11 Anion Gap (mmol/L) Date Value 03/19/2025 11 Calcium, Total (mg/dL) Date Value 03/19/2025 9.1 Lab Results Component Value Date HBA1C 5.2 03/05/2025 HBA1C 5.4 11/20/2024 No results found for: CHOL, HDL, LDL, TG Glucose (mg/dL) Date Value 03/19/2025 87 Potassium (mmol/L) Date Value 03/19/2025 3.9 Sodium (mmol/L) Date Value 03/19/2025 138 Chloride (mmol/L) Date Value 03/19/2025 105 CO2 (mmol/L) Date Value 03/19/2025 22 Creatinine (mg/dL) Date Value 03/19/2025 0.60 BUN (mg/dL) Date Value 03/19/2025 11 Anion Gap (mmol/L) Date Value 03/19/2025 11 Calcium, Total (mg/dL) Date Value 03/19/2025 9.1 Protein, Total (g/dL) Date Value 03/19/2025 6.5 Albumin (g/dL) Date Value 03/19/2025 3.8 Bilirubin, Total (mg/dL) Date Value 03/19/2025 0.2 Alkaline Phosphatase (U/L) Date Value 03/19/2025 51 AST (U/L) Date Value 03/19/2025 12 ALT (U/L) Date Value 03/19/2025 9 ANTHROPOMETRICS Height: Last 1 Encounter Ht Readings: Date: Ht: 01/29/2025 162.6 cm (5' 4) Current weight: Last 3 Encounter Wt Readings: Date: Wt: 06/25/2025 107.5 kg (237 lb) 06/11/2025 108.4 kg (239 lb) 06/04/2025 108.4 kg (238 lb 15.7 oz) BMI: 40.68 kg/(m2) 5% weight loss = 225 lbs, 10% weight loss = 213 lbs READINESS TO LEARN Cognitive ability: Alert and oriented Motivation to learn: Eager Family support: Unable to assess - Family not present Instruction provided to: Patient Patient learns best by: Multiple Methods Factors affecting learning: None Physical limitations affecting learning: None Stage of Change: Action Nutrition Diagnosis: Inconsistent Carbohydrate Intake, related to; DM, as evidenced by diet recall AND new dx Nutrition Intervention: -Defining Gestational Diabetes Disease process -Making lifestyle changes to manage Gestational diabetes (food, activity and medication) -Monitoring: blood glucose (BG) target goal. Instructed on the target BG fasting (60-95 mg/dL), 1 hour after main meals (less than 140 mg/dL) and 2 hours after main meals (less than 120 mg/dL). Instructed to fax, e-mail, or call MD with weekly BG results. But if BG readings are elevated, instructed to call MD earlier. -Provided with logsheet for ease of tracking BG numbers -Blo (more content not included)... [facility] 06-24-2025 Note HNO ID: [id number] Author: BRE ZAMORA RN Service: ? Author Type: Registered Nurse Type: Progress Notes Filed: 06/24/2025 09:36 Note Text: DIABETES SELF-MANAGEMENT EDUCATION AND SUPPORT Location: [place] Type of visit: Virtual (with video) individual -- I have communicated my name and active licensure. The patient's identity and physical location were verified at the time of this visit. Either the patient or their legal inbound sales representative has been informed of the risks and benefits of -- and alternatives to -- treatment through a remote evaluation and consents to proceed with the evaluation remotely. 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 Patient states he/she is located at home/work and is the State [facility] for duration of this visit. Types of DSMES: Initial/Comprehensive (add to or update ADA spreadsheet) PATIENT'S MAIN CONCERN TODAY: new gestational diabetes diagnosis Support person present for education today: none Cognitive ability: Alert and oriented Motivation to learn: Interested Learning barriers identified by educator: none Method of instruction: written and verbal INTERVENTIONS/TOPICS COVERED: -Diabetes Pathophysiology: gestational diabetes basics -Monitoring: A1c meaning and target <7%, BG targets, rationale for HGM, sharps disposal, testing frequency, and using a home glucose monitor -Healthy Eating: impact of carbs on BG, basic carb counting, foods with carbs, portion sizes, fiber, reading food labels, recommendation for 30 g carb breakfast, 45-60 g carb lunch/dinner, 15-30 g carb snacks, eating out, carb counting tools (books, Internet, smartphone apps), healthy heart options, and always pair protein/healthy fats with meals and snacks that contain carbs -Medications: medication safety/timing, medication side effects, insulin storage, site selection/rotation, pen injection instruction, sharps disposal, reviewed home DM meds, taught new DM meds as noted, basal insulin, and injectable insulin discussed: NPH Insulin -Physical Activity: benefits of exercise, impact of exercise on BG, types of exercise, and exercise safety -Acute Complications: hypoglycemia s/sx/tx, hyperglycemia s/sx/tx, and traveling with diabetes -Chronic Complications: importance of BG control to reduce risks and risks to mom and baby with elevated blood sugars during -Healthy Coping and Support: impact of stress on BG and stress management techniques DIABETES ASSESSMENT: Referring Physician: Dr. Margarita Lazaro Previous Diabetes Education? No What are you hoping to gain from this visit? New gestational diabetes diagnosis In your words, what is gestational diabetes? High blood sugar What concerns you about having gestational diabetes? Having to start insulin Diabetes History: Type of Diabetes: Gestational ( diabetes in ) How far along is your ? Weeks: 29 Does anyone in your family have diabetes? 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 never How often does someone help you read your pill bottles? never How often does someone have to help you take care of your diabetes? never Major stressors: none noted How do you manage stress? reading Do any of the following things get in the way of managing your diabetes? No self-identified issues Health History: Do you use tobacco? No Do you use alcohol? No In the past 12 months have you had any: Hospital Admissions: No ER Visits: Yes, Number of Times? 1 Primary Care Visits: Asked/not answered What are your general feelings about you overall health? Good Medical Issues/Complications: gestational diabetes in To whom are you reporting your blood sugar levels? OB PAST MEDICAL HISTORY Diagnosis Date IBS (irritable bowel syndrome) Migraine headache with aura POTS (postural orthostatic tachycardia syndrome) Most recent A1C Lab Results Component Value Date HBA1C 5.2 03/05/2025 HBA1C 5.4 11/20/2024 Physical Activity: Do you do a regular exercise? Yes; how many days per week 5+ How long each day? Less than 30 min Type of Exercise: walking Sleep: Do you get at least 7 hrs of sleep most nights? yes Current Outpatient Medications Medication Sig blood sugar diagnostic test strip Use as directed to check glucose levels up to seven times daily. Lancets Use as directed to check g (more content not included)... [facility] 06-21-2025 Telephone encounter Note Patient notified of results, verbalizes understanding of instructions. Transferred to [facility] to schedule consult appointments. Eulalia Rondon RN [facility] 06-21-2025 Miscellaneous Notes Patient notified of results, verbalizes understanding of instructions. Transferred to [facility] to schedule consult appointments. Eulalia Rondon RN Patient already has growth ultrasound scheduled for this Saturday. Please file pended orders for supplies and teaching. Eulalia Rondon RN Patient did not pass 3 hr GTT. She has a diagnosis of gestational diabetes. Needs supplies and teaching please. documented in this encounter [facility] 06-21-2025 Telephone encounter Note Patient already has growth ultrasound scheduled for this Saturday. Please file pended orders for supplies and teaching. Eulalia Rondon RN [facility] 06-21-2025 Telephone encounter Note Patient did not pass 3 hr GTT. She has a diagnosis of gestational diabetes. Needs supplies and teaching please. [facility] 06-11-2025 Progress note Formatting of t his note is different from the original. VAIBHAV-S: Jennifer Henley is a 29 year old female who presents at 28w0d with LILIANE:09/03/2025, by Last Menstrual Period for a routine visit. Denies headache, visual changes, chest pain, shortness of breath, vaginal bleeding, leakage of fluid, or dysuria. Feeling well, no complaints. Rx for Periactin given and effective. Migraines have improved. No further elevated BP and all home levels are normal. O: See flow sheet Gen: No apparent distress Abd: Gravid, nontender ASSESSMENT/PLAN: 1. Supervision of high risk , antepartum -Continue PNV -Continue ASA, increased to 162mg 2. Obesity in Pregravid BMI 37 Growth US every 4 weeks starting at 32 weeks NSTs weekly starting at 36 weeks -Scheduled 3. Postural orthostatic tachycardia syndrome -labetalol for migraines and KNUTSON PRN, not used recently -Periactin effective and will use as first line. To call if worsening. 4. 28 weeks gestation of - 1 hour GCT, CBC, and RPR today - A positive - LARC form reviewed and signed. Patient declines - Depression screen negative - Opioid screen negative - plan form discussed and given to patient. 5. Low-lying placenta without hemorrhage, second trimester -US next visit 6. Need for vaccination - TDAP VACCINE, AGE 7+ YR (ADACEL, BOOSTRIX) 7. Encounter for immunization - INFLUENZA VACCINE, PRSV FREE, AGE 6MO-64YR, TRIVALENT (AFLURIA, FLUARIX, FLULAVAL, FLUVIRIN, FLUZONE) 8. Penicillin allergy -Initial consult completed, scheduled for PO testing PTL precautions reviewed and when to call RTO in 4 weeks Lorraine Roldan APRN.CNM [facility] 06-11-2025 Miscellaneous Notes VAIBHAV-S: Jennifer Henley is a 29 year old female who presents at 28w0d with LILIANE:09/03/2025, by Last Menstrual Period for a routine visit. Denies headache, visual changes, chest pain, shortness of breath, vaginal bleeding, leakage of fluid, or dysuria. Feeling well, no complaints. Rx for Periactin given and effective. Migraines have improved. No further elevated BP and all home levels are normal. O: See flow sheet Gen: No apparent distress Abd: Gravid, nontender ASSESSMENT/PLAN: 1. Supervision of high risk , antepartum -Continue PNV -Continue ASA, increased to 162mg 2. Obesity in Pregravid BMI 37 Growth US every 4 weeks starting at 32 weeks NSTs weekly starting at 36 weeks -Scheduled 3. Postural orthostatic tachycardia syndrome -labetalol for migraines and KNUTSON PRN, not used recently -Periactin effective and will use as first line. To call if worsening. 4. 28 weeks gestation of - 1 hour GCT, CBC, and RPR today - A positive - LARC form reviewed and signed. Patient declines - Depression screen negative - Opioid screen negative - plan form discussed and given to patient. 5. Low-lying placenta without hemorrhage, second trimester -US next visit 6. Need for vaccination - TDAP VACCINE, AGE 7+ YR (ADACEL, BOOSTRIX) 7. Encounter for immunization - INFLUENZA VACCINE, PRSV FREE, AGE 6MO-64YR, TRIVALENT (AFLURIA, FLUARIX, FLULAVAL, FLUVIRIN, FLUZONE) 8. Penicillin allergy -Initial consult completed, scheduled for PO testing PTL precautions reviewed and when to call RTO in 4 weeks Lorraine Roldan APRN.CNM documented in this encounter [facility] 06-11-2025 Note HNO ID: [id number] Author: HILDA GOINS LPN Service: ? Author Type: Licensed Nurse Type: Progress Notes Filed: 06/11/2025 09:56 Note Text: Patient identified by name and date of . Jennifer Henley presents today for a vaccination of Tdap. Patient denies an allergy to latex: yes Patient denies a severe (life-threatening) allergy to a previous dose of Tdap, DTP, DTaP, DT or Td vaccine. Yes Patient denies history of epilepsy or neurological problems: Yes Patient is afebrile and denies being moderately or severely ill: Yes Patient denies history of Guillain-[place] Syndrome (a severe paralytic illness): Yes Tdap Adacel injection was given without incident. See immunizations for details of immunizations administered today. VIS sheet provided: Yes Provider Lorraine Roldan APRN CNM was present in office at time of injection. Hilda Goins LPN [facility] 06-11-2025 History of Present illness Narrative Patient identified by name and date of . Jennifer Henley presents today for a vaccination of Tdap. Patient denies an allergy to latex: yes Patient denies a severe (life-threatening) allergy to a previous dose of Tdap, DTP, DTaP, DT or Td vaccine. Yes Patient denies history of epilepsy or neurological problems: Yes Patient is afebrile and denies being moderately or severely ill: Yes Patient denies history of Guillain-[place] Syndrome (a severe paralytic illness): Yes Tdap Adacel injection was given without incident. See immunizations for details of immunizations administered today. VIS sheet provided: Yes Provider Lorraine Roldan APRN CNM was present in office at time of injection. Hilda Goins LPN documented in this encounter [facility] 06-11-2025 Instructions Hilda Goins LPN - 06/11/2025 7:32 AM EDT SEQUENTIAL SCREENINGS The [facility] offers sequential screenings for women who are interested in screenings for chromosomal abnormalities and certain defects during a . The sequential screen combines ultrasound and blood tests to determine the risk of chromosomal abnormalities, including Down's Syndrome (Trisomy 21) and Trisomy 18, as well as open neural tube defects including spina bifida. Ultrasound examination is performed between 11 weeks and 13 weeks gestational age. Blood tests are drawn after the ultrasound and again later in the between 15 and 21 weeks gestational age. Please let your physician know if you are interested in this testing. It will require an appointment with our bomb technician. This is not an ultrasound performed by a physician in our office during a routine visit. SIGNS AND SYMPTOMS OF LABOR 1. Contractions every 10 minutes or more often 2. Clear, pink, or brownish fluid (water) leaking from vagina 3. Feeling that baby is pushing down, pressure 4. Low, dull backache 5. Cramps that feel like a period 6. Cramps with or without diarrhea If you notice any of the above symptoms, contact our office at [phone] and ask to speak with a nurse. After hours, you can call doctors registry at [phone] OR call [facility] at [phone] and ask to have the doctor coordinator cardiopulmonary services paged. If you consider this an emergency, dial 9-1-6 or go to your nearest emergency department. NEED HELP? Are you dealing with a violent or abusive relationship? Are you a victim of rape or sexual assult? Call [facility] ([place]) 24 hour Crisis Hotline: 731.452.7328 or 178-755-7891. MANUAL Your Guide to a Healthy manual is now on-line. Visit [email or web address] to download your free copy documented in this encounter [facility] 06-04-2025 Instructions Taylor Wooten APRN.CNP - 06/04/2025 9:38 AM EDT Skin testing negative to penicillin G, PrePen and ampicillin Low likelihood that you are allergic Need to complete oral challenge for definitive evaluation Can do this any time after 28 weeks In the meantime, continue to avoid penicillin antibiotics No antihistamines 5 days prior to challenge Continue to avoid cephalexin Can consider oral challenge when no longer documented in this encounter [facility] 06-04-2025 History of Present illness Narrative Allergy & Clinical Immunology This is a request for consultation by Lorraine Roldan APRN.CNM for an opinion regarding penicillin allergy. My final recommendations will be communicated back to the requesting physician by way of shared medical record or letter to the requesting physician via [place] mail. Chief Complaint: Penicillin allergy Historian: Patient ORTEGA Henley is a 29 year old female who presents for evaluation of penicillin allergy. She is 27 weeks . Patient reports the drug in question is penicillin. The last exposure to this drug was in infancy. After that exposure, the following symptoms occurred: rash. Denies associated angioedema or respiratory symptoms. She is unable to recall if treatment was needed. This was the first time she had taken penicillin. She has avoided penicillin antibiotics since. No antihistamines in the last 5 days. History of full body pruritus after taking few doses of cephalexin last year. She continued taking and pruritus persisted until she stopped taking on the fifth day of seven day course. Denies associated angioedema, cutaneous or respiratory symptoms. Pruritus resolved with diphenhydramine. She has previously tolerated cephalexin the year prior but has been avoiding since. ALLERGIES Allergen Reactions Penicillins Hives Adhesive Hives Sutures Hives Cephalexin Itching PAST MEDICAL HISTORY Diagnosis Date IBS (irritable bowel syndrome) Migraine headache with aura POTS (postural orthostatic tachycardia syndrome) PAST SURGICAL HISTORY Procedure Laterality Date KNEE LEFT OP SURGERY Left REMOVAL GALLBLADDER FAMILY HISTORY Problem Relation Age of Onset other (scleroderma) Mother other (congestive heart) Father Alzheimer's Disease Maternal Grandmother SOCIAL HISTORY[1] Current Outpatient Medications on File Prior to Visit Medication Sig famotidine (PEPCID) 20 mg tablet Take 1 tablet by mouth two times a day. labetalol (TRANDATE) 100 mg tablet Take 100 mg by mouth at bedtime as needed. aspirin, enteric coated (ECOTRIN LOW STRENGTH) 81 mg EC tablet Take 1 tablet by mouth once daily. vits18/iron/folic/dss (PRENACARE ORAL) Take 1 tablet by mouth once daily. No current facility-administered medications on file prior to visit. Review of Systems Constitutional: Negative for chills, fatigue and fever. HENT: Negative for congestion and rhinorrhea. Respiratory: Negative for cough, chest tightness, shortness of breath and wheezing. Cardiovascular: Negative for chest pain, palpitations and leg swelling. Skin: Negative for rash. Last menstrual period 11/27/2024. There is no height or weight on file to calculate BMI. Physical Exam Constitutional: General: She is not in acute distress. Cardiovascular: Rate and Rhythm: Normal rate and regular rhythm. Heart sounds: Normal heart sounds. Pulmonary: Effort: Pulmonary effort is normal. No respiratory distress. Breath sounds: Normal breath sounds. Neurological: Mental Status: She is alert and oriented to person, place, and time. Penicillin Skin Testing: I personally reviewed the patients testing and interpreted results as follows: Negative to penicillin G, PrePen and ampicillin. ALLERGEN: Penicillin G (Percutaneous): 0 mm, 0 mm PrePen (Percutaneous): 0 mm, 0 mm Ampicillin (Percutaneous): 0 mm, 0 mm CONTROL: 0 mm, 0 mm HISTAMINE: 4 mm, 10 mm Penicillin G (Intradermal): 0 mm, 0 mm PrePen (Intradermal): 0 mm, 0 mm Ampicillin (Intradermal): 0 mm, 0 mm CONTROL: 7 mm, 12 mm Assessment/Plan: 1. Adverse effect of penicillin, initial encounter - ICD9: E930.0, ICD10: T36.0X5A History of rash in infancy. Skin testing negative suggesting that she does not have an IgE-mediated penicillin allergy. Need to complete oral challenge for definitive evaluation. - Return after 28 weeks for graded oral challenge to Amoxicillin - In the meantime, continue to avoid penicillin antibiotics - Advised no antihistamines 5 days prior to challenge visit 2. Adverse effect of cephalosporin, initial encounter - ICD9: E930.5, ICD10: T36.1X5A History of generalized pruritus after taking cephalexin last year. Low suspicion for IgE-mediated allergy. Discussed returning for oral challenge when no longer . In the meantime, continue to avoid cephalexin, taking equally efficacious alternatives as indicted. 3. 27 weeks gestation of - ICD9: V22.2, ICD10: Z3A.27 Discussed benefit of penicillin allergy evaluation in the context of Taylor Wooten APRN.CNP Department of Allergy & Clinical Immunology [1] Social History Tobacco Use Smoking status: Never Smokeless tobacco: Never Vaping Use Vaping status: Never Used Substance Use Topics Alcohol use: Never Drug use: Never documented in this encounter [facility] 06-04-2025 Note HNO ID: [id number] Author: TAYLOR WOOTEN APRN.CNP Service: ? Author Type: Nurse Practitioner Type: Progress Notes Filed: 06/04/2025 12:25 Note Text: Allergy AND Clinical Immunology This is a request for consultation by Lorraine Roldan APRN.CNM for an opinion regarding penicillin allergy. My final recommendations will be communicated back to the requesting physician by way of shared medical record or letter to the requesting physician via US mail. Chief Complaint: Penicillin allergy Historian: Patient ORTEGA Henley is a 29 year old female who presents for evaluation of penicillin allergy. She is 27 weeks . Patient reports the drug in question is penicillin. The last exposure to this drug was in infancy. After that exposure, the following symptoms occurred: rash. Denies associated angioedema or respiratory symptoms. She is unable to recall if treatment was needed. This was the first time she had taken penicillin. She has avoided penicillin antibiotics since. No antihistamines in the last 5 days. History of full body pruritus after taking few doses of cephalexin last year. She continued taking and pruritus persisted until she stopped taking on the fifth day of seven day course. Denies associated angioedema, cutaneous or respiratory symptoms. Pruritus resolved with diphenhydramine. She has previously tolerated cephalexin the year prior but has been avoiding since. ALLERGIES Allergen Reactions Penicillins Hives Adhesive Hives Sutures Hives Cephalexin Itching PAST MEDICAL HISTORY Diagnosis Date IBS (irritable bowel syndrome) Migraine headache with aura POTS (postural orthostatic tachycardia syndrome) PAST SURGICAL HISTORY Procedure Laterality Date KNEE LEFT OP SURGERY Left REMOVAL GALLBLADDER FAMILY HISTORY Problem Relation Age of Onset other (scleroderma) Mother other (congestive heart) Father Alzheimer's Disease Maternal Grandmother SOCIAL HISTORY[1] Current Outpatient Medications on File Prior to Visit Medication Sig famotidine (PEPCID) 20 mg tablet Take 1 tablet by mouth two times a day. labetalol (TRANDATE) 100 mg tablet Take 100 mg by mouth at bedtime as needed. aspirin, enteric coated (ECOTRIN LOW STRENGTH) 81 mg EC tablet Take 1 tablet by mouth once daily. vits18/iron/folic/dss (PRENACARE ORAL) Take 1 tablet by mouth once daily. No current facility-administered medications on file prior to visit. Review of Systems Constitutional: Negative for chills, fatigue and fever. HENT: Negative for congestion and rhinorrhea. Respiratory: Negative for cough, chest tightness, shortness of breath and wheezing. Cardiovascular: Negative for chest pain, palpitations and leg swelling. Skin: Negative for rash. Last menstrual period 11/27/2024. There is no height or weight on file to calculate BMI. Physical Exam Constitutional: General: She is not in acute distress. Cardiovascular: Rate and Rhythm: Normal rate and regular rhythm. Heart sounds: Normal heart sounds. Pulmonary: Effort: Pulmonary effort is normal. No respiratory distress. Breath sounds: Normal breath sounds. Neurological: Mental Status: She is alert and oriented to person, place, and time. Penicillin Skin Testing: I personally reviewed the patients testing and interpreted results as follows: Negative to penicillin G, PrePen and ampicillin. ALLERGEN: Penicillin G (Percutaneous): 0 mm, 0 mm PrePen (Percutaneous): 0 mm, 0 mm Ampicillin (Percutaneous): 0 mm, 0 mm CONTROL: 0 mm, 0 mm HISTAMINE: 4 mm, 10 mm Penicillin G (Intradermal): 0 mm, 0 mm PrePen (Intradermal): 0 mm, 0 mm Ampicillin (Intradermal): 0 mm, 0 mm CONTROL: 7 mm, 12 mm Assessment/Plan: 1. Adverse effect of penicillin, initial encounter - ICD9: E930.0, ICD10: T36.0X5A History of rash in infancy. Skin testing negative suggesting that she does not have an IgE-mediated penicillin allergy. Need to complete oral challenge for definitive evaluation. - Return after 28 weeks for graded oral challenge to Amoxicillin - In the meantime, continue to avoid penicillin antibiotics - Advised no antihistamines 5 days prior to challenge visit 2. Adverse effect of cephalosporin, initial encounter - ICD9: E930.5, ICD10: T36.1X5A History of generalized pruritus after taking cephalexin last year. Low suspicion for IgE-mediated allergy. Discussed returning for oral challenge when no longer . In the meantime, continue to avoid cephalexin, taking equally efficacious alternatives as indicted. 3. 27 weeks gestation of - ICD9: V22.2, ICD10: Z3A.27 Discussed benefit of penicillin allergy evaluation in the context of Taylor Wooten APRN.[facility] Department of Allergy AND Clinical Immunology [1] Social History Tobacco Use Smoking status: Never Smokeless tobacco: Never Vaping Use Vaping status: Never (more content not included)... [facility] 04-16-2025 Progress note Formatting of t his note is different from the original. VAIBHAV-S: Jennifer Henley is a 29 year old female who presents at 20w0d with LILIANE:09/03/2025, by Last Menstrual Period for a routine visit. Denies headache, visual changes, chest pain, shortness of breath, vaginal bleeding, leakage of fluid, or dysuria. Feeling well, no complaints. Has taken labetalol once in last 4 weeks for migraine. Rx for Periactin given and effective. Migraines have improved. No further elevated BP and all home levels are normal. O: See flow sheet Gen: No apparent distress Abd: Gravid, nontender Home BP range 110/60, all normal ASSESSMENT/PLAN: 1. Supervision of high risk , antepartum -Continue PNV -Continue ASA, increased to 162mg 2. Obesity in Pregravid BMI 37 Growth US every 4 weeks starting at 32 weeks NSTs weekly starting at 36 weeks 3. Postural orthostatic tachycardia syndrome -labetalol for migraines and KNUTSON PRN. -Periactin effective and will use as first line. To call if worsening. 4. 20 weeks gestation of -Anatomy US today 5. Elevated BP without diagnosis of hypertension -At home had episode of feeling dizzy and seen floaters, checked BP and 145/92, 10 minutes later was 116/62. Nothing since that time. Denies any history of hypertension. -No history of HTN. BP at home normal, no further elevation. Baseline labs at this time. Baseline labs normal. Will continue to monitor but no signs of CHTN, preeclampsia, or GHTN at this time. PTL precautions reviewed and when to call RTO in 4 weeks Lorraine Roldan APRN.CNM [facility] 04-16-2025 Miscellaneous Notes VAIBHAV-S: Jennifer Henley is a 29 year old female who presents at 20w0d with LILIANE:09/03/2025, by Last Menstrual Period for a routine visit. Denies headache, visual changes, chest pain, shortness of breath, vaginal bleeding, leakage of fluid, or dysuria. Feeling well, no complaints. Has taken labetalol once in last 4 weeks for migraine. Rx for Periactin given and effective. Migraines have improved. No further elevated BP and all home levels are normal. O: See flow sheet Gen: No apparent distress Abd: Gravid, nontender Home BP range 110/60, all normal ASSESSMENT/PLAN: 1. Supervision of high risk , antepartum -Continue PNV -Continue ASA, increased to 162mg 2. Obesity in Pregravid BMI 37 Growth US every 4 weeks starting at 32 weeks NSTs weekly starting at 36 weeks 3. Postural orthostatic tachycardia syndrome -labetalol for migraines and KNUTSON PRN. -Periactin effective and will use as first line. To call if worsening. 4. 20 weeks gestation of -Anatomy US today 5. Elevated BP without diagnosis of hypertension -At home had episode of feeling dizzy and seen floaters, checked BP and 145/92, 10 minutes later was 116/62. Nothing since that time. Denies any history of hypertension. -No history of HTN. BP at home normal, no further elevation. Baseline labs at this time. Baseline labs normal. Will continue to monitor but no signs of CHTN, preeclampsia, or GHTN at this time. PTL precautions reviewed and when to call RTO in 4 weeks Lorraine Roldan APRN.CNM documented in this encounter [facility] 04-16-2025 Instructions Susan Mora LPN - 04/16/2025 8:06 AM EDT SEQUENTIAL SCREENINGS The [facility] offers sequential screenings for women who are interested in screenings for chromosomal abnormalities and certain defects during a . The sequential screen combines ultrasound and blood tests to determine the risk of chromosomal abnormalities, including Down's Syndrome (Trisomy 21) and Trisomy 18, as well as open neural tube defects including spina bifida. Ultrasound examination is performed between 11 weeks and 13 weeks gestational age. Blood tests are drawn after the ultrasound and again later in the between 15 and 21 weeks gestational age. Please let your physician know if you are interested in this testing. It will require an appointment with our bomb technician. This is not an ultrasound performed by a physician in our office during a routine visit. SIGNS AND SYMPTOMS OF LABOR 1. Contractions every 10 minutes or more often 2. Clear, pink, or brownish fluid (water) leaking from vagina 3. Feeling that baby is pushing down, pressure 4. Low, dull backache 5. Cramps that feel like a period 6. Cramps with or without diarrhea If you notice any of the above symptoms, contact our office at [phone] and ask to speak with a nurse. After hours, you can call doctors registry at [phone] OR call [facility] at [phone] and ask to have the doctor coordinator cardiopulmonary services paged. If you consider this an emergency, dial 9-1-1 or go to your nearest emergency department. NEED HELP? Are you dealing with a violent or abusive relationship? Are you a victim of rape or sexual assult? Call [facility] ([facility] 24 hour Crisis Hotline: 897.686.4546 or 081-180-2262. MANUAL Your Guide to a Healthy manual is now on-line. Visit [email or web address] to download your free copy documented in this encounter [facility] 03-19-2025 Progress note Formatting of t his note might be different from the original. VAIBHAV-S: Jennifer Henley is a 29 year old female who presents at 16w0d with LILIANE:09/03/2025, by Last Menstrual Period for a routine visit. Denies headache, visual changes, chest pain, shortness of breath, vaginal bleeding, leakage of fluid, or dysuria. Feeling well, no complaints. Had episode of feeling dizzy and seen floaters, checked BP and 145/92, 10 minutes later was 116/62. Denies any history of hypertension. O: See flow sheet Gen: No apparent distress Abd: Gravid, nontender ASSESSMENT/PLAN: 1. Supervision of high risk , antepartum - [id number] PLUS - MYRIAD FORESIGHT CARRIER SCREEN 2. Obesity in Pregravid BMI 37 Growth US every 4 weeks starting at 32 weeks NSTs weekly starting at 36 weeks 3. Postural orthostatic tachycardia syndrome -Was taking Propranolol for migraines and KNUTSON PRN. Changed to labetalol for but has not needed to take this. 4. 16 weeks gestation of 5. Elevated BP without diagnosis of hypertension -No history of HTN. Instructed to check BP twice daily and keep log for 2 weeks, will send via [employer]. BP normal today. Can bring cuff to next visit. Baseline labs at this time. - COMPREHENSIVE METABOLIC PANEL - URIC ACID - PROTEIN / CREATININE RATIO PTL precautions reviewed and when to call RTO in 4 weeks Lorraine Roldan APRN.CNM [facility] 03-19-2025 Miscellaneous Notes VAIBHAV-S: Jennifer Henley is a 29 year old female who presents at 16w0d with LILIANE:09/03/2025, by Last Menstrual Period for a routine visit. Denies headache, visual changes, chest pain, shortness of breath, vaginal bleeding, leakage of fluid, or dysuria. Feeling well, no complaints. Had episode of feeling dizzy and seen floaters, checked BP and 145/92, 10 minutes later was 116/62. Denies any history of hypertension. O: See flow sheet Gen: No apparent distress Abd: Gravid, nontender ASSESSMENT/PLAN: 1. Supervision of high risk , antepartum - [id number] PLUS - MYRIAD FORESIGHT CARRIER SCREEN 2. Obesity in Pregravid BMI 37 Growth US every 4 weeks starting at 32 weeks NSTs weekly starting at 36 weeks 3. Postural orthostatic tachycardia syndrome -Was taking Propranolol for migraines and KNUTSON PRN. Changed to labetalol for but has not needed to take this. 4. 16 weeks gestation of 5. Elevated BP without diagnosis of hypertension -No history of HTN. Instructed to check BP twice daily and keep log for 2 weeks, will send via [employer]. BP normal today. Can bring cuff to next visit. Baseline labs at this time. - COMPREHENSIVE METABOLIC PANEL - URIC ACID - PROTEIN / CREATININE RATIO PTL precautions reviewed and when to call RTO in 4 weeks Lorraine Roldan APRN.CNM documented in this encounter [facility] 03-09-2025 Telephone encounter Note Copy sent to L&D. Karen Hammonds RN [facility] 03-09-2025 Miscellaneous Notes Copy sent to L&D. Karen Hammonds RN Anatomy ultrasound reviewed. No abnormalities identified. Follow up as clinically indicated. Please place copy in ob chart. Neli Valencia MD documented in this encounter [facility] 03-08-2025 Progress note Formatting of t his note might be different from the original. Anatomy ultrasound reviewed. No abnormalities identified. Follow up as clinically indicated. Please place copy in ob chart. Neli Valencia MD [facility] Work Phone: 03-03-2025 Progress note Formatting of t his note is different from the original. EH - S: Jennifer is a 29 year old female who presents at 13w5d for a routine visit. Denies headache, visual changes, chest pain, shortness of breath, vaginal bleeding, leakage of fluid, or dysuria. O: See flow sheet Gen: No apparent distress Abd: Gravid, nontender ASSESSMENT/PLAN: 1. Supervision of high risk , antepartum (HCC) - ICD9: V23.9, ICD10: O09.90 (primary diagnosis) - Continue PNV - Start LDA - Taking Propanolol PRN for POTS - recommend reaching out to neurology prescriber to notify of . Has not taken recently. - Struggling with congestion/sinus problems. Safe medication list provided and reviewed. 2. 13 weeks gestation of ([facility]) - ICD9: V22.2, ICD10: Z3A.13 - NT today, report pending 3. Obesity in ([facility]) - ICD9: 649.10, ICD10: O99.210 -Pre BMI 37 - Plan for 32 week growth q 4 weeks. - Weekly NSTs at 36 weeks. 4. Penicillin allergy - ICD9: V14.0, ICD10: Z88.0 - Consult previously placed PTL precautions reviewed. RTO in 4 weeks or sooner as needed. Chrissie Aguilera APRN.NAILER OPERATOR [facility] 03-03-2025 Miscellaneous Notes EH - S: Jennifer is a 29 year old female who presents at 13w5d for a routine visit. Denies headache, visual changes, chest pain, shortness of breath, vaginal bleeding, leakage of fluid, or dysuria. O: See flow sheet Gen: No apparent distress Abd: Gravid, nontender ASSESSMENT/PLAN: 1. Supervision of high risk , antepartum (HCC) - ICD9: V23.9, ICD10: O09.90 (primary diagnosis) - Continue PNV - Start LDA - Taking Propanolol PRN for POTS - recommend reaching out to neurology prescriber to notify of . Has not taken recently. - Struggling with congestion/sinus problems. Safe medication list provided and reviewed. 2. 13 weeks gestation of ([facility]) - ICD9: V22.2, ICD10: Z3A.13 - NT today, report pending 3. Obesity in (HCC) - ICD9: 649.10, ICD10: O99.210 -Pre BMI 37 - Plan for 32 week growth q 4 weeks. - Weekly NSTs at 36 weeks. 4. Penicillin allergy - ICD9: V14.0, ICD10: Z88.0 - Consult previously placed PTL precautions reviewed. RTO in 4 weeks or sooner as needed. Chrissie Aguilera APRN.NAILER OPERATOR documented in this encounter [facility] 03-03-2025 Instructions Keisha Gonzalez MA - 03/03/2025 11:33 AM EDT SEQUENTIAL SCREENINGS The [facility] offers sequential screenings for women who are interested in screenings for chromosomal abnormalities and certain defects during a . The sequential screen combines ultrasound and blood tests to determine the risk of chromosomal abnormalities, including Down's Syndrome (Trisomy 21) and Trisomy 18, as well as open neural tube defects including spina bifida. Ultrasound examination is performed between 11 weeks and 13 weeks gestational age. Blood tests are drawn after the ultrasound and again later in the between 15 and 21 weeks gestational age. Please let your physician know if you are interested in this testing. It will require an appointment with our bomb technician. This is not an ultrasound performed by a physician in our office during a routine visit. SIGNS AND SYMPTOMS OF LABOR 1. Contractions every 10 minutes or more often 2. Clear, pink, or brownish fluid (water) leaking from vagina 3. Feeling that baby is pushing down, pressure 4. Low, dull backache 5. Cramps that feel like a period 6. Cramps with or without diarrhea If you notice any of the above symptoms, contact our office at [phone] and ask to speak with a nurse. After hours, you can call doctors registry at [phone] OR call [facility] at [phone] and ask to have the doctor coordinator cardiopulmonary services paged. If you consider this an emergency, dial [phone]- or go to your nearest emergency department. NEED HELP? Are you dealing with a violent or abusive relationship? Are you a victim of rape or sexual assult? Call [facility] ([place]) 24 hour Crisis Hotline: 633.568.8701 or 419-318-5359. MANUAL Your Guide to a Healthy manual is now on-line. Visit [email or web address] to download your free copy documented in this encounter [facility] 01-29-2025 Note HNO ID: [id number] Author: LILLY CANNON MA Service: ? Author Type: Customer Service Leader Type: Progress Notes Filed: 01/29/2025 09:52 Note Text: OB point of care ultrasound was performed. See imaging tab for details. Lilly Cannon MA [facility] 01-28-2025 Note HNO ID: [id number] Author: LORRAINE ROLDAN APRN.CNM Service: ? Author Type: Hourly Manager Type: Progress Notes Filed: 01/29/2025 09:52 Note Text: INITIAL OB ASSESSMENT HPI: Jennifer is a 29 year old White Female here to establish Obstetrical Care. Patient's last menstrual period was 11/27/2024. from OB Dating Form. was planned Complaints: No OB History Gravida1 Para0 Term0 Preterm0 AB0 Living0 SAB0 IAB0 Ectopic0 Multiple0 Live Births0 Previous history: Prior : never History of 4th degree laceration: NA History of shoulder dystocia: No History of Hypertensive disorders including pre-eclampsia or gestational hypertension: NA History of gestational diabetes: NA Patient's Risk Screening for delivery: Have you had a prior joseph between 20w and 36w6d? No How many pregnancies have you had before? 0 Did you have a previous baby with a GBS Infection? No Please select all that apply for any prior : N/A MEDICAL/PSYCHOSOCIAL HISTORY: History of hemorrhage or bleeding concerns: No Thyroid Disease: No History of chronic hypertension: No History of pre-existing diabetes: No BMI 37.76 kg/(m2) Last Pap: History of abnormal pap: No Prior treatment for cervical dysplasia: none. Last HPV: History of STDs: N/A Partner History of STDs: None Did you have a partner with Herpes? No Tobacco use: No E-Cigarette/Vaping Use: No Caffeine use: Yes Drug use: No Alcohol use: No Multivitamin with Folic acid: Yes Would refuse blood transfusion if medically necessary: No Social Needs: How often does this describe you? I don't have enough money to pay my bills: Never Within the past 12 months, have you worried that your food would run out before you had money to buy more? Never In the past 12 months, has lack of reliable transportation kept you from going to medical appointments or work, or from getting things needed for daily living? Never In the past 12 months, have you had any concerns about having a place to live, or about the condition or quality of your housing? Never Would you like more information on any of the following (please check all that apply)? Centering (group care classes) Social History: Do you have any history of depression, anxiety, PTSD, or other mood problems? No Do you have a history of abuse or trauma that may impact your experience? No Are you currently employed? Yes Depression/Anxiety Screening: denies symptoms of depression. OB Depression and Anxiety Screening- This Encounter Over the past 2 weeks have you felt down, depressed, or hopeless? Negative Over the past two weeks, have you felt little interest or pleasure in doing things?? Negative Feeling nervous, anxious or on edge 0-Not at all Not being able to stop or control worrying 0-Not al all Anxiety Pre-Screening Total (If >/= 3 additional questions will be reviewed) 0 Genetic Screening: Partner present: No Patient verbalized knowledge of partner family health history: Yes Do you or your partner have any personal or family history of defects not previously discussed: No Do you have history of a complicated by anomaly, genetic condition, or demise: No Preeclampsia Risk Screening: Screening for prevention of preeclampsia: High risk factors: None Moderate risk ractors: Nulliparity and Obesity (body mass index greater than 30) OB Risk Screening: Completed, no positive findings documented. 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 propranolol (INDERAL) 10 mg tablet Take 10 mg by mouth three times a day as needed. nortriptyline (PAMELOR) 10 mg capsule Take 10 mg by mouth daily at bedtime. QULIPTA 60 mg tablet Take 60 mg by mouth once daily. midodrine (PROAMATINE) 2.5 mg tablet Take 2.5 mg by mouth two times a day. No current facility-administered medications for this visit. Allergies As of Date: 01/29/2025 Allergen Noted Reaction PENICILLINS 12/30/2017 Hives ADHESIVE 11/20/2024 Hives SUTURES 01/09/2024 Hives CEPHALEXIN 03/10/2024 Itching Fully Assessed 01/29/2025 Does patient have penicillin allergy: Yes, plan for allergy testing. REVIEW OF SYSTEMS: GENERAL: Negative for: Fever or Chills HEENT: Negative for: Headache, Impaired Vision, Ringing in Ears, Nosebleeds NECK: Negative for: Swelling, Pain, Stiffness RESPIRATORY: Negative for: Cough, Shortness of breath, Wheezing (more content not included)... [facility] 12-30-2024 History of Present illness Narrative Chief Complaint Patient presents with Re-establish Care Following Dr. Busch from Obesity Patient would like to talk about weight loss options Subjective Patient ID: Jennifer Henley is a 29 y.o. female who presents for Re-establish Care (Following Dr. Busch from ) and Obesity (Patient would like to talk about weight loss options ). HPI Patient is a 29 y.o. female patient who is here today to re-establish care. Pt has a pmhx of chronic migraines, IBS, Obesity, POTS. Patient is currently seeing [facility] for her POTS, and her chronic migraines. She is currently on Qlipta and propranolol and Trudhesa for breakthrough migraines. Pt takes 5mg of midodrine in in the AM and 2.5 mg in the evening She had just switched to [facility] and the midodrine from their she had left hand swollen and rashes, lips were swollen and whole body itchying. Getting the medicine from a different expansion joint builder was the only thing that was different. They just recently bought a house. 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 Review of Systems Constitutional: Negative for activity change. HENT: Negative for congestion, postnasal drip, rhinorrhea, sinus pain and sore throat. Eyes: Negative for pain and redness. Respiratory: Negative for cough and shortness of breath. Gastrointestinal: Negative for constipation and diarrhea. Genitourinary: Negative for hematuria and menstrual problem. Musculoskeletal: Negative for back pain and gait problem. Skin: Negative for wound. Objective BP 112/63 (BP Location: Left arm, BP Position: Sitting) Pulse 83 Ht 1.626 m (5' 4) Wt 97.1 kg (214 lb) BMI 36.73 kg/m Smoking Status Never Physical Exam Constitutional: General: She is not in acute distress. Appearance: Normal appearance. HENT: Head: Normocephalic. Nose: Nose normal. Eyes: Extraocular Movements: Extraocular movements intact. Pupils: Pupils are equal, round, and reactive to light. Cardiovascular: Rate and Rhythm: Normal rate and regular rhythm. Pulses: Normal pulses. Heart sounds: No murmur heard. Pulmonary: Effort: Pulmonary effort is normal. No respiratory distress. Breath sounds: Normal breath sounds. Musculoskeletal: Cervical back: Neck supple. Neurological: General: No focal deficit present. Mental Status: She is alert and oriented to person, place, and time. Psychiatric: Mood and Affect: Mood normal. Behavior: Behavior normal. 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 POTS - sees Neurology - on Midodrine (holding right now due to possible reaction from [facility] as it was a different expansion joint builder) 2. Chronic migraines - sees neurology - on Qlipta = propranolol = trudhesa prn for breakthrough 3. Obesity, BMI 36 - she has tried traditional weight loss and exercise without significant results - she has tried ww, calorie counting without much success - she did tried topamax in the past with her migraines and that gave her hallucinations - she does think she has ever tried wellbutrin - call in 1 mo with update, if going ok will increase to 300mg Follow up in 3 mo Patient Active Problem List Diagnosis Date Noted POA Obesity: body mass index of 35.0-39.9 [E66.812] 12/30/2024 Unknown Migraine [G43.909] Unknown Neuropathy [G62.9] 01/09/2024 Unknown POTS (postural orthostatic tachycardia syndrome) [G90.A] 01/09/2024 Unknown Intractable migraine without aura and without status migrainosus [G43.019] 04/29/2019 Unknown NDPH (new daily persistent headache) [G44.52] 03/13/2019 Unknown documented in this encounter [facility] [place] 11-20-2024 Note HNO ID: [id number] Author: ALBA ROSA APRN.NAILER OPERATOR Service: ? Author Type: Nurse Practitioner Type: Progress Notes Filed: 11/20/2024 11:07 Note Text: Jennifer is a 29 year old who presents for an annual gynecologic exam with complaints, irregular bleeding. Stop OCP in Aug 07 2 periods were regular, LMP 10/13/24 Still get period: Yes Bleeding amount bothersome: No Bleeding between periods: No Period symptoms: Acne; Breast tenderness; Cramps; Mood change Time with current partner: 11 years Number of lifetime partners: 4 control frequency: Never HPV vaccine: Yes; HPV:N/A Last pap smear: 01/23/2023 History of abnormal pap: No, all prior PAP smears have been normal Bothersome pelvic pain: No Last mammogram: never OB History No obstetric history on file. [employer] History LMP: 10/14/2024 Age at Menarche: 10 Age at First : Age at Menopause: [employer] History Comments: Sexual Activity: Yes; Male Contraception: None Menstrual Tracking History Flowsheet Row Office Visit from 11/20/2024 in OB/Gynecology Period Cycle (Days) 31 Period Duration (Days) 5 Menstrual Flow Moderate PAST MEDICAL HISTORY Diagnosis Date Migraines POTS (postural orthostatic tachycardia syndrome) PAST SURGICAL HISTORY Procedure Laterality Date KNEE LEFT OP SURGERY Left REMOVAL GALLBLADDER FAMILY HISTORY Problem Relation Age of Onset other (scleroderma) Mother other (congestive heart) Father Alzheimer's Disease Maternal Grandmother SOCIAL HISTORY Social History Tobacco Use Smoking status: Never Smokeless tobacco: Never Vaping Use Vaping status: Never Used Substance Use Topics Alcohol use: Never Drug use: Never REVIEW OF SYSTEMS Abdomen: No abdominal pain, nausea, vomiting, diarrhea, or constipation. No bloating, early satiety, indigestion, or increased flatulence. Bladder: No dysuria, gross hematuria, urinary frequency, urinary urgency, or incontinence. Breast: No breast lumps, nipple d/c, overlying skin changes, redness or skin retraction. Allergies and current medication updated:Yes SENSITIVE EXAM: The sensitive examination was discussed with the Patient or Patient's Authorized Commercial Intelligence Manager. As applicable, any other physician, advance practice provider, medical student, or other health professional student that will be observing or involved in the sensitive examination for educational or training purposes was discussed with the Patient or Authorized Commercial Intelligence Manager. The Patient or Authorized Commercial Intelligence Manager has agreed to proceed with the sensitive examination. (Sensitive examination includes inspection and/or palpation of the breasts, pelvis, prostate and anorectal regions). EXAM: BP 124/82 Ht 5' 3.5 (1.61m) Wt 218 lb (98.9kg) LMP 10/14/2024 BMI 38.01 kg/(m2). GENERAL: pleasant, female in no apparent distress HEENT: Normocephalic, atraumatic, mucus membranes moist, and no lesions DERMATOLOGY: Normal, without lesions, non-icteric, and non-hirsute BREAST: soft, non-tender, symmetric, no dominant mass, normal nipple-areolar complex, no lymphadenopathy, and no nipple discharge CHEST: Normal inspiratory effort ABDOMEN: soft, non-tender, and no masses PELVIC: external genitalia normal, normal Bartholin's glands, urethra, Ponderosa's glands, no vulvar lesions, no cervical lesions, good vaginal support, physiologic discharge present, normal appearing perineal body and perianal region BIMANUAL: uterus normal size, shape and consistency, no adnexal masses, and non-tender RECTOVAGINAL: deferred. NEURO: alert and oriented x3,exam grossly non-focal EXTREMITIES: normal ASSESSMENT/PLAN: 1. Encounter for gynecological examination (general) (routine) without abnormal findings - ICD9: V72.31, ICD10: Z01.419 (primary diagnosis) - Completed pelvic and breast exam - Encouraged monthly BSE - Follow up for annual exam in one year. 2. Irregular menstrual cycle - ICD9: 626.4, ICD10: N92.6 Will notify patient of test results. - PROLACTIN - TESTOSTERONE, FREE AND TOTAL, BY EQUILIBRIUM ULTRAFILTRATION MASS SPECTROMETRY - DHEA-S BLD - HYDROXYPROGESTERONE-17 - FOLLICLE STIMULATING HORMONE - LUTEINIZING HORMONE - ESTRADIOL-17B BLD - HEMOGLOBIN A1C Alba Rosa APRN.ISAIAH Medical Decision Making: Problems: Moderate: New problem with uncertain prognosis Data: Unique test(s) ordered: 3+ Risk: Low: Low risk from testing/treatment Medical Decision Making Level: 4 - Moderate [facility] 11-20-2024 History of Present illness Narrative Jennifer is a 29 year old who presents for an annual gynecologic exam with complaints, irregular bleeding. Stop OCP in Aug 07 2 periods were regular, LMP 10/13/24 Still get period: Yes Bleeding amount bothersome: No Bleeding between periods: No Period symptoms: Acne; Breast tenderness; Cramps; Mood change Time with current partner: 11 years Number of lifetime partners: 4 control frequency: Never HPV vaccine: Yes; HPV:N/A Last pap smear: 01/23/2023 History of abnormal pap: No, all prior PAP smears have been normal Bothersome pelvic pain: No Last mammogram: never OB History No obstetric history on file. [employer] History LMP: 10/14/2024 Age at Menarche: 10 Age at First : Age at Menopause: [employer] History Comments: Sexual Activity: Yes; Male Contraception: None Menstrual Tracking History Flowsheet Row Office Visit from 11/20/2024 in OB/Gynecology Period Cycle (Days) 31 Period Duration (Days) 5 Menstrual Flow Moderate PAST MEDICAL HISTORY Diagnosis Date Migraines POTS (postural orthostatic tachycardia syndrome) PAST SURGICAL HISTORY Procedure Laterality Date KNEE LEFT OP SURGERY Left REMOVAL GALLBLADDER FAMILY HISTORY Problem Relation Age of Onset other (scleroderma) Mother other (congestive heart) Father Alzheimer's Disease Maternal Grandmother SOCIAL HISTORY Social History Tobacco Use Smoking status: Never Smokeless tobacco: Never Vaping Use Vaping status: Never Used Substance Use Topics Alcohol use: Never Drug use: Never REVIEW OF SYSTEMS Abdomen: No abdominal pain, nausea, vomiting, diarrhea, or constipation. No bloating, early satiety, indigestion, or increased flatulence. Bladder: No dysuria, gross hematuria, urinary frequency, urinary urgency, or incontinence. Breast: No breast lumps, nipple d/c, overlying skin changes, redness or skin retraction. Allergies and current medication updated:Yes SENSITIVE EXAM: The sensitive examination was discussed with the Patient or Patient's Authorized Commercial Intelligence Manager. As applicable, any other physician, advance practice provider, medical student, or other health professional student that will be observing or involved in the sensitive examination for educational or training purposes was discussed with the Patient or Authorized Commercial Intelligence Manager. The Patient or Authorized Commercial Intelligence Manager has agreed to proceed with the sensitive examination. (Sensitive examination includes inspection and/or palpation of the breasts, pelvis, prostate and anorectal regions). EXAM: BP 124/82 Ht 5' 3.5 (1.61m) Wt 218 lb (98.9kg) LMP 10/14/2024 BMI 38.01 kg/(m^2). GENERAL: pleasant, female in no apparent distress HEENT: Normocephalic, atraumatic, mucus membranes moist, and no lesions DERMATOLOGY: Normal, without lesions, non-icteric, and non-hirsute BREAST: soft, non-tender, symmetric, no dominant mass, normal nipple-areolar complex, no lymphadenopathy, and no nipple discharge CHEST: Normal inspiratory effort ABDOMEN: soft, non-tender, and no masses PELVIC: external genitalia normal, normal Bartholin's glands, urethra, Ponderosa's glands, no vulvar lesions, no cervical lesions, good vaginal support, physiologic discharge present, normal appearing perineal body and perianal region BIMANUAL: uterus normal size, shape and consistency, no adnexal masses, and non-tender RECTOVAGINAL: deferred. NEURO: alert and oriented x3,exam grossly non-focal EXTREMITIES: normal ASSESSMENT/PLAN: 1. Encounter for gynecological examination (general) (routine) without abnormal findings - ICD9: V72.31, ICD10: Z01.419 (primary diagnosis) - Completed pelvic and breast exam - Encouraged monthly BSE - Follow up for annual exam in one year. 2. Irregular menstrual cycle - ICD9: 626.4, ICD10: N92.6 Will notify patient of test results. - PROLACTIN - TESTOSTERONE, FREE AND TOTAL, BY EQUILIBRIUM ULTRAFILTRATION MASS SPECTROMETRY - DHEA-S BLD - HYDROXYPROGESTERONE-17 - FOLLICLE STIMULATING HORMONE - LUTEINIZING HORMONE - ESTRADIOL-17B BLD - HEMOGLOBIN A1C Alba Rosa APRN.CNP Medical Decision Making: Problems: Moderate: New problem with uncertain prognosis Data: Unique test(s) ordered: 3+ Risk: Low: Low risk from testing/treatment Medical Decision Making Level: 4 - Moderate documented in this encounter [facility] 10-23-2024 Evaluation + Plan note Associated Problem(s): Chronic migraine with aura Orders: nortriptyline (Pamelor) 10 mg capsule; Take 2 capsules (20 mg) by mouth once daily at bedtime. methylPREDNISolone (Medrol Dospak) 4 mg tablets; Follow schedule on package instructions [facility] Work Phone: 10-23-2024 Evaluation + Plan note Associated Problem(s): POTS (postural orthostatic tachycardia syndrome) Orders: propranolol (Inderal) 10 mg tablet; Take 1 tablet (10 mg) by mouth as needed at bedtime (based on symptoms). [facility] Work Phone: 10-23-2024 History of Present illness Narrative Chief Complaint Patient presents with Migraine Postural Orthostatic Tachycardia Syndrome (Pots) Subjective HPI Jennifer Henley is a 29 y.o. year old female who presents with chief complaint Chronic migraine with aura without status migrainosus, not intractable [G43.E09] Jennifer is experiencing 1-2 RINALDI days per month, 1-2 of the HAs meet migraine criteria. Triggers include barometric pressure . Aura The headaches are usually moderate and throbbing and are located varies, generally symmetric. The patient rates the most severe headaches a 7 in intensity. Generally, headaches last about 4-24 hours in duration. Associated nausea, photophobia, phonophobia, and vestibular symptoms. The current rescue medications work within 1-2 hours and decreased the headache by 100%. The patient does not repeat treatment with rescue medication. Patient is reporting some thermoregulation issues especially at nighttime. Will order TSH to be drawn. Current/ past RINALDI treatments: Preventive: Propranolol Nortriptyline Rescue: Acetaminophen Ibuprofen Sumatriptan Rizatriptan Current Outpatient Medications: cetirizine (ZyrTEC) 10 mg chewable tablet, Chew 1 tablet (10 mg) once daily as needed for allergies., Disp: , Rfl: Qulipta 60 mg tablet tablet, Take 1 tablet (60 mg) by mouth once daily., Disp: 30 tablet, Rfl: 5 Trudhesa 0.725 mg/pump act. (4 mg/mL) nasal spray, Administer 1 spray into each nostril every 1 hour if needed for migraine., Disp: 4 each, Rfl: 5 methylPREDNISolone (Medrol Dospak) 4 mg tablets, Follow schedule on package instructions, Disp: 21 tablet, Rfl: 0 midodrine (Proamatine) 2.5 mg tablet, Take 1 tablet (2.5 mg) by mouth 3 times daily (morning, midday, late afternoon)., Disp: 270 tablet, Rfl: 3 nortriptyline (Pamelor) 10 mg capsule, Take 2 capsules (20 mg) by mouth once daily at bedtime., Disp: 180 capsule, Rfl: 3 propranolol (Inderal) 10 mg tablet, Take 1 tablet (10 mg) by mouth as needed at bedtime (based on symptoms)., Disp: 90 tablet, Rfl: 3 Allergies Allergen Reactions Adhesive Tape-Silicones Hives Penicillins Hives Sutures Hives Keflex [Cephalexin] Itching Past Medical History: Diagnosis Date Migraines Other conditions influencing health status Menstruation Other specified health status No pertinent past medical history POTS (postural orthostatic tachycardia syndrome) Past Surgical History: Procedure Laterality Date CHOLECYSTECTOMY N/A 09/25/[address] Del Rio ESOPHAGOGASTRODUODENOSCOPY MOUTH SURGERY OTHER SURGICAL HISTORY 10/14/2019 Colonoscopy OTHER SURGICAL HISTORY 07/19/2022 Knee surgery Family History Problem Relation Name Age of Onset Miscarriages / Stillbirths Mother Mirna Dick Blood clot Maternal Grandfather Donna Aly Clotting disorder Maternal Grandfather Donna Aly Diabetes Maternal Grandfather Donna Aly Hypertension Maternal Grandfather Donna Aly Kidney disease Maternal Grandfather Donna Aly Diabetes Paternal Grandfather Lv Dick Sr. Blood clot Mother's Sister Kamla Aly Clotting disorder Mother's Sister Kamla Aly Social History Tobacco Use Smoking status: Never Smokeless tobacco: Never Substance Use Topics Alcohol use: Yes Comment: occass Social History Substance and Sexual Activity Drug Use Never ROS As noted in HPI, otherwise all other systems have been reviewed are negative for complaint. Objective General Appearance: Jennifer is well-developed, well-nourished, 29 y.o. year old female, in no acute distress. Makes good eye contact, is alert, interactive, and cooperative. Demonstrates recent & remote memory recall. Subjective information consistent with objective assessment. Vitals: 10/23/24 0827 BP: 123/81 Pulse: 98 Weight: 101 kg (222 lb) Height: 1.626 m (5' 4) PainSc: 2 PainLoc: Head Lab Results Component Value Date WBC 9.4 03/11/2024 RBC 4.12 03/11/2024 HGB 12.0 03/11/2024 HCT 38.5 03/11/2024 PLT 393 03/11/2024 NA 138 03/11/2024 K 4.2 03/11/2024 CL 110 (H) 03/11/2024 BUN 15 03/11/2024 CREATININE 0.93 03/11/2024 EGFR 86 03/11/2024 CALCIUM 9.2 03/11/2024 ALKPHOS 60 03/11/2024 AST 14 03/11/2024 ALT 10 03/11/2024 [id number] 01/05/2023 CHOL 202 (H) 07/26/2022 HDL 61.0 07/26/2022 TRIG 65 07/26/2022 TSH 1.00 01/05/2023 Mental Status Patient Health Questionnaire-2 Score: 0 No data recorded Neurological Exam Cranial Nerves CN III, IV, : Extraocular movements intact bilaterally. Normal lids and orbits bilaterally. CN VII: Full and symmetric facial movement. CN VIII: Hearing is normal. Assessment & Plan Chronic migraine with aura without status migrainosus, not intractable Orders: nortriptyline (Pamelor) 10 mg capsule; Take 2 capsules (20 mg) by mouth once daily at bedtime. methylPREDNISolone (Medrol Dospak) 4 mg tablets; Follow schedule on package instructions POTS (postural orthostatic tachycardia syndrome) Orders: propranolol (Inderal) 10 mg tablet; Take 1 tablet (10 mg) by mouth as needed at bedtime (based on symptoms). Chronic migraine without aura without status migrainosus, not intractable Orders: midodrine (Proamatine) 2.5 mg tablet; Take 1 tablet (2.5 mg) by mouth 3 times daily (morning, midday, late afternoon). ASSESSMENT/PLAN: Continue midodrine. Continue propranolol. Continue Qulipta for preventative treatment. Continue nortriptyline. Obtain TSH. Follow-up in 1 year or sooner if needed. VU Roy documented in this encounter [facility] Work Phone: 10-23-2024 Miscellaneous Notes Associated Problem(s): Chronic migraine with aura Orders: nortriptyline (Pamelor) 10 mg capsule; Take 2 capsules (20 mg) by mouth once daily at bedtime. methylPREDNISolone (Medrol Dospak) 4 mg tablets; Follow schedule on package instructions Associated Problem(s): POTS (postural orthostatic tachycardia syndrome) Orders: propranolol (Inderal) 10 mg tablet; Take 1 tablet (10 mg) by mouth as needed at bedtime (based on symptoms). documented in this encounter [facility] Work Phone: 04-17-2024 History of Present illness Narrative Patient being seen today for follow-up of migraine and POTS. She reports that her migraines have been well-controlled and with adding on the nortriptyline she is not experiencing the daily headaches anymore either. Denies any side effects. As far as her POTS is concerned, she has had some increased exacerbation lately based on the weather. She does utilize the propranolol as needed which does help her to be able to participate in more physical activity at times. We will trial increasing the midodrine to 5 mg in the morning with the afternoon dose maintaining at 2.5 mg. Also discussed adding salt replacement tablets to see if that may help her with the heat and humidity. Additionally, since her migraine activity is somewhat improved we are going to titrate down to discontinue the zonisamide. Verbally discussed that with patient with the titration. Patient to notify office in 5 to 6 weeks of her response. If her response is positive, we will then begin a titration to discontinue the gabapentin as well. Discussed role of medicine, importance of taking medications, potential risks, benefits, and precautions to be taken. Reviewed sleep hygiene and dietary modifications. Follow-up in 6 months. This note was created with voice recognition software and was not corrected for typographical or grammatical errors documented in this encounter [facility] Work Phone: 03-10-2024 History of Present illness Narrative Subjective Patient ID: Jennifer Henley is a 28 y.o. female who presents for New Patient Visit (New patient. C/O pain in both knees, R shoulder and R hip.). HPI 28 yo female with joint pain She reports pain in her ankles, knees, hips and shoulders She had multiple left knee surgeries Her AM stiffness last around 10 min She is having LBP occasionally She has h/o eczema but no psoriasis She denies any photosensitivity, Raynaud, sicca Her mother has Raynaud and scleroderma, CREST and her dad had scleroderma She denies smoking occasional alcohol She denies any miscarriage, thrombosis AMIE neg in 2020 ROS Joint pain in hands: negative Joint swelling: negative Morning stiffness and duration: negative Podiatry Assistant strength: normal Oral ulcer: negative Genital ulcer: negative Raynaud phenomenon: negative Chest pain/dyspnea: negative Low back pain: negative Visual problem: negative Dry eyes/dry mouth: negative Skin rash/scaling/psoriasis: negative Objective PEXAM VS reviewed, WNL General: Alert, no distress HEENT: Normocephalic/atraumatic, No alopecia. PERRLA. Sclera white, conjunctiva pink, no malar rash. no oral or nasal ulcer. Oral cavity pink and moist, no erythema or exudate, dentition good. Neck: supple Respiratory: CTA B, no adventitious breath sounds Cardiac: RRR, no murmurs, carotid, or bruits Abdominal: symmetrical, soft, non-tender, non-distended, normoactive BSx4 quadrants, no CVA tenderness or suprapubic tenderness MSK: Joints of upper and lower extremities were assessed for synovitis and ROM. Today she has no evidence of synovitis in the joints of her hands or wrists, tender joint count 0, swollen joint count 0 Extremities: no clubbing, no cyanosis, no edema Skin: Skin warm and moist. Neuro: non-focal, Strength 5/5 throughout. Normal gait. No cerebellar pathologic exam Assessment/Plan 28 yo female with joint pain She has a p mechanic left knee problem and had multiple surgeries Her PExam revealed only hypermobility, no active synovitis I do not think she has any inflammatory heumatic diseases, but her mother has scleroderma -will see her ESR, CRP, AMIE and pelvis x-ray documented in this encounter [facility] Work Phone: 02-26-2024 History of Present illness Narrative [facility] [facility] NOTE: Name: Jennifer Henley, 28 y.o. CSN:[id number] PCP: Evelyn Busch, ALL: Allergies Allergen Reactions Adhesive Tape-Silicones Hives Penicillins Hives Sutures Hives History: Chief Complaint: Sore Throat (Pt concerned for strep. ) Encounter Date: 02/26/2024 09:50hrs HPI: The history was obtained from the patient. Jennifer is a 28 y.o. female, who presents with a chief complaint of Sore Throat (Pt concerned for strep. ) Symptoms ongoing for the last 3 days, started with congestion and allergy like symptoms on Saturday, then it progressed to moderate facial pain congestion pressure with some drainage posteriorly through the throat, she has had some discomfort with swallowing, and then she just recently found out that she was exposed to strep by her family member over the weekend. PMHx: Past Medical History: Diagnosis Date Migraines Other conditions influencing health status Menstruation Other specified health status No pertinent past medical history POTS (postural orthostatic tachycardia syndrome) Current Outpatient Medications Medication Sig Dispense Refill cephalexin (Keflex) 500 mg capsule Take 1 capsule (500 mg) by mouth 2 times a day for 10 days. 20 capsule 0 cetirizine (ZyrTEC) 10 mg chewable tablet Chew 1 tablet (10 mg) once daily as needed for allergies. famotidine (Pepcid) 20 mg tablet Take 1 tablet (20 mg) by mouth 2 times a day for 7 days. 14 tablet 0 gabapentin (Neurontin) 300 mg capsule TAKE 1 CAPSULE BY MOUTH 2 TIMES A DAY 180 capsule 0 hydrOXYzine HCL (Atarax) 25 mg tablet Take 1 tablet (25 mg) by mouth every 6 hours if needed for itching. 30 tablet 0 midodrine (Proamatine) 2.5 mg tablet Take 1 tablet (2.5 mg) by mouth 2 times a day. Needs follow-up appointment for any further refills. 60 tablet 3 norethindrone ac-eth estradioL (Microgestin 10/26) 1-20 mg-mcg tablet Take 1 tablet by mouth once daily. 28 tablet 11 propranolol (Inderal) 10 mg tablet TAKE 1 TABLET BY MOUTH EVERY DAY AT BEDTIME (Patient taking differently: Take 1 tablet (10 mg) by mouth as needed at bedtime.) 30 tablet 3 Qulipta 60 mg tablet tablet Take 1 tablet (60 mg) by mouth once daily. 30 tablet 3 Trudhesa 0.725 mg/pump act. (4 mg/mL) spray,non-aerosol Administer into affected nostril(s). zonisamide (Zonegran) 100 mg capsule TAKE 3 CAPSULES (300 MG) BY MOUTH ONCE DAILY AT BEDTIME. 270 capsule 3 No current facility-administered medications for this visit. PMSx: Past Surgical History: Procedure Laterality Date CHOLECYSTECTOMY N/A 09/25/[address] Del Rio ESOPHAGOGASTRODUODENOSCOPY MOUTH SURGERY OTHER SURGICAL HISTORY 10/14/2019 Colonoscopy OTHER SURGICAL HISTORY 07/19/2022 Knee surgery Fam Hx: Family History Problem Relation Name Age of Onset Miscarriages / Stillbirths Mother Mirna Dick Blood clot Maternal Grandfather Donna Ayl Clotting disorder Maternal Grandfather Donna Aly Diabetes Maternal Grandfather Donna Aly Hypertension Maternal Grandfather Donna Aly Kidney disease Maternal Grandfather Donna Aly Diabetes Paternal Grandfather Lv Dick Sr. Blood clot Mother's Sister Kamla Aly Clotting disorder Mother's Sister Kamla Aly SOC. Hx: Social History Socioeconomic History Marital status: Spouse name: Not on file Number of children: Not on file Years of education: Not on file Highest education level: Not on file Occupational History Not on file Tobacco Use Smoking status: Never Smokeless tobacco: Never Vaping Use Vaping status: Never Used Substance and Sexual Activity Alcohol use: Yes Comment: occass Drug use: Never Sexual activity: Defer Other Topics Concern Not on file Social History Narrative Not on file Social Determinants of Health Financial Resource Strain: Not on file Food Insecurity: Not on file Transportation Needs: Not on file Physical Activity: Not on file Stress: Not on file Social Connections: Not on file Intimate Partner Violence: Not on file Housing Stability: Not on file Vitals: 02/26/24 0943 BP: 111/79 Pulse: 77 Resp: 16 Temp: 37 C (98.6 F) SpO2: 98% 95.3 kg (210 lb) Physical Exam Vitals reviewed. Constitutional: Appearance: Normal appearance. She is obese. HENT: Head: Normocephalic and atraumatic. Right Ear: Hearing normal. Left Ear: Hearing normal. Nose: Congestion present. Mouth/Throat: Mouth: Mucous membranes are moist. No oral lesions. Dentition: No gum lesions. Palate: No mass. Pharynx: Uvula midline. No pharyngeal swelling, oropharyngeal exudate, posterior oropharyngeal erythema or uvula swelling. Tonsils: No tonsillar exudate. Eyes: Extraocular Movements: Extraocular movements intact. Cardiovascular: Rate and Rhythm: Normal rate. Pulmonary: Effort: Pulmonary effort is normal. Abdominal: General: Abdomen is flat. Musculoskeletal: General: Normal range of motion. Cervical back: Normal range of motion and neck supple. Skin: General: Skin is warm. Neurological: Mental Status: She is alert and oriented to person, place, and time. Psychiatric: Behavior: Behavior normal. LABORATORY @ RADIOLOGICAL IMAGING (if done): No testing performed as this does not appear to be consistent with a strep exposure present. __ I did personally review Jennifer's past medical history, surgical history, social history, as well as family history (when relevant). In this case, I also oversaw the her drug management by reviewing her medication list, allergy list, as well as the medications that I prescribed during the UC course and/or recommended as an out-patient (including possible OTC medications such as acetaminophen, NSAIDs , etc). After reviewing the items above, I did look at previous medical documentation, such as recent hospitalizations, office visits, and/or recent consultations with PCP/specialist. SDOH: Another factor that I considered in Jennifer's care was her Social Determinants of Health (SDOH). During this UC encounter, she did not have social determinants of health. Those SDOH influencing Jennifer's care are: none ___ UC COURSE/MEDICAL DECISION MAKING: Jennifer is a 28 y.o., who presents with a working diagnosis of 1. Acute rhinosinusitis with a differential to include: Influenza, parainfluenza, rhinovirus, adenovirus, metapneumovirus, coronavirus, COVID-19, postnasal drip, strep pharyngitis, GERD, retropharyngeal abscess, tonsillitis, adenitis, seasonal allergies 1) URI with cough/congestion: supportive care recommended, discussed use of OTC analgesics APAP/NSAID for fever/pain control, discussed hydration & when to seek re-evaluation. Recommend use of pseudoephedrine, start with the lowest level of dosing and then progress as tolerated, discussed use of Keflex if symptoms persist, she voiced understanding I do not think testing is necessary given the lack of evidence of strep at this time. She was discharged. Sanya Arana PA-C Advanced Practice Provider [facility] documented in this encounter [facility] Work Phone: 01-09-2024 History of Present illness Narrative Patient being assessed today for follow-up of migraine, cervical occipital neuralgia, POTS. Patient reports that she has been experiencing increased frequency of migraines due to sometimes daily other times every other day. She is also experiencing increased joint pain widespread throughout her body. Previously when that happened she did follow with rheumatology which was about 5 years ago. We will refer her to rheumatology for further evaluation of that. Her POTS symptoms have been pretty well-maintained on the midodrine. She does take the propranolol as needed. We will continue the midodrine and propranolol she has been taking it. As far as her migraines we will increase the gabapentin to 300 mg twice daily. Continue the Qulipta as she has been taking it. [place] report reviewed. Discussed role of medicine, controlled substance policy, abuse potential, importance of taking medications, potential risks, benefits, and precautions to be taken. Reviewed sleep hygiene and dietary modifications. Patient to notify office in 6 weeks of efficacy. Follow-up in 3 months with an in office visit. Patient verbalized understanding. This note was created with voice recognition software and was not corrected for typographical or grammatical errors OARRS: Tammy Simeon, SCRIPT GIRL-NAILER OPERATOR on 01/09/2024 8:50 AM I have personally reviewed the OARRS report for Jennifer Toan Henley. I have considered the risks of abuse, dependence, addiction and diversion Is the patient prescribed a combination of a benzodiazepine and opioid? No Last Urine Drug Screen / ordered today: No No results found for this or any previous visit (from the past 8760 hour(s)). N/A Clinical rationale for not completing a Urine Drug Screen: Pending in office follow-up appointment Controlled Substance Agreement: Date of the Last Agreement: Pending in office follow-up appointment Reviewed Controlled Substance Agreement including but not limited to the benefits, risks, and alternatives to treatment with a Controlled Substance medication(s). Anticonvulsant: What is the patient's goal of therapy? Management of symptoms Is this being achieved with current treatment? Somewhat Activities of Daily Living: Is your overall impression that this patient is benefiting (symptom reduction outweighs side effects) from Anticonvulsant therapy? Yes 1. Physical Functioning: Same 2. Family Relationship: Same 3. Social Relationship: Same 4. Mood: Same 5. Sleep Patterns: Same 6. Overall Function: Same documented in this encounter [facility] Work Phone: 10-10-2023 History of Present illness Narrative General Surgery Post-Operative Visit Patient: Jennifer Henley : 1995 Date of Visit: 10/10/23 Chief Complaint: s/p laparoscopic cholecystectomy History of Present Illness: Jennifer Henley is a 28 y.o. old female s/p laparoscopic cholecystectomy on 09/25/23 for biliary colic. Surgical pathology showed mild chronic cholecystitis. She has not had any recurrent episodes of right upper quadrant pain that she was getting prior to surgery. Unfortunately, it sounds like she had a bad reaction to the adhesive Steri-Strips at her incision sites. I was out of the office so she saw her primary care team and was prescribed an antihistamine and steroid cream for this. It has since improved. Overall, she is doing well. She is tolerating regular diet and having bowel function. She denies any issues with diarrhea. ROS: No fever No diarrhea No jaundice, scleral icterus, or dark urine Physical Exam: No physical exam performed as this was a virtual telephone follow up. Assessment and Plan: eJnnifer Henley is a 28 y.o. old female s/p laparoscopic cholecystectomy. She is doing well without any symptoms of postoperative complication aside from a bad reaction to her adhesive Steri-Strips, which has since resolved. She will continue to refrain from any heavy lifting for another 2 weeks to minimize risk of incisional hernia. She may otherwise resume regular activity. She will follow-up as needed. Evelyn Del Rio MD 10/10/2023 documented in this encounter [facility] Work Phone: 10-02-2023 History of Present illness Narrative Subjective Patient ID: Jennifer Henley is a 27 y.o. female who presents for Rash (Patient having skin irritation under breast and abdomen area around the incision sites x 4 days ago with itching. Hx of cholecystectomy x [address] Del Rio[address] HPI Patient presents for evaluation of a rash. Patient is 1 week status post laparoscopic cholecystectomy. Patient reports onset of pruritic, erythematous, slightly raised eruptions near the incision sites as well as 1 long linear eruption in the inframammary fold area. No reported attempted conservative management. No other complaints. Review of Systems Constitutional: See HPI Integumentary: See HPI Neurologic: Alert and oriented X4, No numbness, No tingling. All other systems are negative Objective BP 132/82 Pulse (!) 115 Temp 36.3 C (97.3 F) (Temporal) Ht 1.626 m (5' 4) Wt 94.7 kg (208 lb 11.2 oz) LMP 09/15/2023 (Approximate) BMI 35.82 kg/m Physical Exam General: Alert and oriented, No acute distress. Eye: Pupils are equal, round and reactive to light, Normal conjunctiva. HENT: Normocephalic, Neck: Supple Respiratory: Respirations are non-labored Musculoskeletal: Normal ROM and strength Integumentary: Several erythematous, slightly raised, blanchable, pruritic eruptions near the incision sites at the umbilicus, right upper quadrant, epigastrium as well as 1 long similar eruption in the inframammary fold extending from the left breast to the right flank in the shape of tape; incisions are currently intact and without evidence of infection; there are Steri-Strips on all incisions Neurologic: Alert, Oriented, Normal sensory, Cranial Nerves II-XII are grossly intact Psychiatric: Cooperative, Appropriate mood & affect. Assessment/Plan Allergic contact dermatitis: Appears the patient is allergic to adhesives. Unfortunately, the patient is only 1 week postop send no systemic glucocorticoids will be written. This was explained to the patient. Topical betamethasone to be applied away from the incisions and oral Atarax for symptoms. Problem List Items Addressed This Visit None Visit Diagnoses Urticaria - Primary Relevant Medications betamethasone dipropionate 0.05 % cream hydrOXYzine HCL (Atarax) 25 mg tablet Allergic contact dermatitis due to adhesives Relevant Medications betamethasone dipropionate 0.05 % cream hydrOXYzine HCL (Atarax) 25 mg tablet Final diagnoses: [L50.9] Urticaria [L23.1] Allergic contact dermatitis due to adhesives documented in this encounter [facility] Work Phone: 09-25-2023 Miscellaneous Notes Operative Report Patient: Jennifer Henley : 1995 Date of Operation: 09/25/23 Pre-Operative Diagnosis: Biliary colic Post-Operative Diagnosis: Biliary colic Procedure: Laparoscopic Cholecystectomy Surgeon: Evelyn Del Rio MD Vice President Of Sales: Anesthesia: General Findings: Single loose adhesion between duodenum and gallbladder, otherwise normal anatomy. EBL: 10ml Specimen: Gallbladder Case Type: Clean-Contaminated Disposition: PACU Indication: Patient is a 27 y.o. female with biliary colic. Risks and benefits of cholecystectomy were discussed and the patient was agreeable to proceed with surgery. Description: The patient was brought to the operating room and placed in supine position. General anesthesia was induced. The patient's abdomen was prepped and draped. Through a vertical umbilical incision, a 12mm port was placed using Eileen technique. Three 5mm ports were placed in the upper abdomen under direct visualization. The patient was placed in reverse Trendelenburg position and tilted slightly towards the left. The gallbladder was grasped by the fundus and retracted cephalad. There was a single loose adhesions between the gallbladder and the duodenum. This was lysed. The peritoneum was opened to separate the gallbladder neck from the liver. There were some mild chronic inflammatory changes to the tissues while dissecting the cystic duct and artery. The cystic duct and artery were dissected until a critical view of safety was obtained. The cystic duct and artery were clipped, with two clips proximally and one clip distally, and divided. The gallbladder was removed from the hepatic bed using electrocautery. There was no spillage of bile at any point during the case. Hemostasis was confirmed. The camera was changed to a 5mm scope. The gallbladder was placed in an Endocatch bag and removed via the umbilical port. The 5mm ports were removed. The fascial defect at the umbilicus was closed with 0 Vicryl. Skin incisions were closed with 4-0 Vicryl and steri strips. The patient tolerated the procedure well, was extubated and transferred to PACU in stable condition. Evelyn Del Rio MD 09/25/2023 No outpatient medications have been marked as taking for the 09/25/23 encounter (Hospital Encounter). NPO Instructions: Nothing to eat or drink after midnight Additional Instructions: Will need transfer driver home. Will receive call day before surgery with arrival time documented in this encounter [facility] Work Phone: 09-25-2023 Note Formatting of this n ote might be different from the original. Operative Report Patient: Jennifer Henley : 1995 Date of Operation: 09/25/23 Pre-Operative Diagnosis: Biliary colic Post-Operative Diagnosis: Biliary colic Procedure: Laparoscopic Cholecystectomy Surgeon: Evelyn Del Rio MD Vice President Of Sales: Anesthesia: General Findings: Single loose adhesion between duodenum and gallbladder, otherwise normal anatomy. EBL: 10ml Specimen: Gallbladder Case Type: Clean-Contaminated Disposition: PACU Indication: Patient is a 27 y.o. female with biliary colic. Risks and benefits of cholecystectomy were discussed and the patient was agreeable to proceed with surgery. Description: The patient was brought to the operating room and placed in supine position. General anesthesia was induced. The patient's abdomen was prepped and draped. Through a vertical umbilical incision, a 12mm port was placed using Eileen technique. Three 5mm ports were placed in the upper abdomen under direct visualization. The patient was placed in reverse Trendelenburg position and tilted slightly towards the left. The gallbladder was grasped by the fundus and retracted cephalad. There was a single loose adhesions between the gallbladder and the duodenum. This was lysed. The peritoneum was opened to separate the gallbladder neck from the liver. There were some mild chronic inflammatory changes to the tissues while dissecting the cystic duct and artery. The cystic duct and artery were dissected until a critical view of safety was obtained. The cystic duct and artery were clipped, with two clips proximally and one clip distally, and divided. The gallbladder was removed from the hepatic bed using electrocautery. There was no spillage of bile at any point during the case. Hemostasis was confirmed. The camera was changed to a 5mm scope. The gallbladder was placed in an Endocatch bag and removed via the umbilical port. The 5mm ports were removed. The fascial defect at the umbilicus was closed with 0 Vicryl. Skin incisions were closed with 4-0 Vicryl and steri strips. The patient tolerated the procedure well, was extubated and transferred to PACU in stable condition. Evelyn Del Rio MD 09/25/2023 [facility] Work Phone: 09-25-2023 Attending History and physical note H&P reviewed. The patient was examined and there are no changes to the H&P. Source Note - Evelyn Del Rio MD - 09/05/2023 2:00 PM EST General Surgery Consultation Patient: Jennifer Henley : 1995 Date of Consultation: 09/05/23 Primary Care Provider: Evelyn Busch DO Referring Provider: Gus Bradley PA-C Chief Complaint: Abdominal pain History of Present Illness: Jennifer Henley is a 27 y.o. old female seen at the request of Gus Bradley PA-C for evaluation of abdominal pain. For the past several years she has had intermittent postprandial right upper quadrant abdominal pain. I initially evaluated her for this in June 2019. She has always had a normal workup including HIDA scans and ultrasounds. However, her symptoms remain fairly consistent and that she has postprandial right upper quadrant abdominal pain that is worse with greasy and fatty foods. These episodes have become more frequent with time and have increased in severity. She is now having these episodes a couple times per month. She has associated nausea and bloating but does not vomit. She denies any fever, yellowing of the skin or eyes at the time of these episodes. She has seen a power transformer repairer and had a normal EGD. She was previously having chronic constipation, but that has resolved after course of antibiotics that she was taking for unrelated reasons. She currently has bowel movements daily that are soft and formed. She is not on any stool softeners, fiber supplements, or laxatives. She has never seen blood in the stool. Medical History: Migraines IBS POTS Palpitations, PVC's Surgical History: Colonoscopy, EGD Knee surgery in 2013 and 2019 Home Medications: Prior to Admission medications Medication Sig Start Date End Date Taking? Authorizing Provider dicyclomine (Bentyl) 20 mg tablet Take 1 tablet (20 mg) by mouth 4 times a day as needed (abdominal pain or cramps). 08/06/23 10/05/23 Gus Bradley PA-C famotidine (Pepcid) 20 mg tablet Take 1 tablet (20 mg) by mouth 2 times a day for 7 days. 08/06/23 08/13/23 Gus Bradley PA-C flu vacc [id number] 6mos up, PF, (Flulaval Quad [id number], PF,) syringe Inject into the muscle. 09/04/23 Ruben Daniel, DO gabapentin (Neurontin) 300 mg capsule TAKE 1 CAPSULE BY MOUTH 2 TIMES A DAY 01/22/23 01/22/24 Evelyn Busch, DO midodrine (Proamatine) 2.5 mg tablet TAKE 1 TABLET BY MOUTH EVERY MORNING FOR 1 WEEK, THEN TWICE DAILY 07/05/23 norethindrone ac-eth estradioL (Microgestin 10/26) 1-20 mg-mcg tablet Take 1 tablet by mouth once daily. 08/23/23 08/22/24 Nancy Ross, SCRIPT GIRL-CNM, SCRIPT GIRL-NAILER OPERATOR, DNP norethindrone-e.estradioL-iron (Lo Loestrin) 1 mg-10 mcg (24)/10 mcg (2) tablet TAKE 1 TABLET DAILY DIRECTED. 12/06/22 12/06/23 Nancy Ross, SCRIPT GIRL-CNM, SCRIPT GIRL-NAILER OPERATOR, DNP promethazine (Phenergan) 25 mg tablet Take 1 tablet (25 mg) by mouth every 6 hours if needed for nausea or vomiting. 08/06/23 Gus Bradley PA-C propranolol (Inderal) 10 mg tablet TAKE 1 TABLET BY MOUTH EVERY DAY AT BEDTIME 03/20/23 03/19/24 Tammy Simeon, SCRIPT GIRL-NAILER OPERATOR Qulipta 60 mg tablet tablet Take 1 tablet (60 mg) by mouth once daily. 01/17/22 Historical Provider, MD [place] 0.725 mg/pump act. (4 mg/mL) spray,non-aerosol Administer into affected nostril(s). 10/18/21 Historical Provider, zonisamide (Zonegran) 100 mg capsule TAKE 3 CAPSULES (300 MG) BY MOUTH ONCE DAILY AT BEDTIME. 01/31/23 01/31/24 Evelyn Busch, Allergies: is allergic to penicillins. Family History: Maternal aunt with cholangiocarcinoma. The same aunt had factor V Leiden deficiency, as did her maternal grandfather. Social History: . Non-smoker. No alcohol or drug use. ROS: Constitutional: + Weight gain, fatigue Cardiovascular: + POTS Respiratory: No cough or shortness of breath Gastrointestinal: + Postprandial right upper quadrant abdominal pain with associated bloating and nausea, food sensitivities. No vomiting. Genitourinary: no dark-colored urine, + irregular menstrual cycles Musculoskeletal: no weakness or swelling Integumentary: no jaundice Neurological: + Headaches Endocrine: + Heat/cold intolerance, hot flashes Heme/Lymph: no easy bruising or bleeding Objective: BP 112/68 Pulse 80 Ht 1.626 m (5' 4) Wt 98.2 kg (216 lb 6.4 oz) BMI 37.14 kg/m Physical Exam: Constitutional: No acute distress, conversant, pleasant, accompanied by her Neurologic: alert and oriented Psych: appropriate affect Ears, Nose, Mouth and Throat: mucus membranes moist Pulmonary: No labored breathing Cardiovascular: Regular rate and rhythm Abdomen: soft, non-distended, BMI 36, focally tender in the right upper quadrant immediately overlying the gallbladder, no surgical scars Musculoskeletal: Moves all extremities, no edema Skin: no jaundice Labs: Labs from 08/06/23 reviewed: WBC 9.4, Hgb 11.7, LFTs within normal limits including T. bili 0.3 Imaging: Abdominal ultrasound from 08/08/23 reviewed: The gallbladder is nondistended. No stones, wall thickening, or pericholecystic fluid. Sonographic Guaman sign is negative. No biliary ductal dilation, CBD measures 3 mm. Liver is unremarkable. HIDA scan from 08/03/23 reviewed: Patent cystic duct and common bile duct, without evidence of cholecystitis. Normal ejection fraction estimated at 83%. She also had a normal right upper quadrant ultrasound on 10/18/22, no stones. She had a normal HIDA scan on 10/25/22. She had a CT scan of the abdomen and pelvis from 10/02/22 that showed no calcified gallstones, no biliary ductal dilation, and no acute intra-abdominal pathology. Assessment and Plan: Jennifer Henley is a 27 y.o. old female with symptoms of biliary dyskinesia. Risks, benefits and alternatives of laparoscopic cholecystectomy were discussed with the patient. This included risk of bleeding, infection, viscous injury, conversion to an open procedure, bile leakage or bile duct injury, post-cholecystectomy diarrhea, and possible need for subsequent endoscopic or surgical interventions. We specifically discussed that with a normal workup, it is possible that she will have nonresolution or recurrence of her symptoms. That said, I think it is reasonable to offer cholecystectomy given that she is focally tender immediately overlying the gallbladder and her symptoms are fairly classic for biliary etiology. The patient was agreeable to proceed with surgery and is scheduled for laparoscopic cholecystectomy on 09/25/23. Evelyn Del Rio MD 09/05/2023 [facility] Work Phone: 09-25-2023 History and physical note H&P reviewed. The patient was examined and there are no changes to the H&P. Source Note - Evelyn Del Rio MD - 09/05/2023 2:00 PM EST General Surgery Consultation Patient: Jennifer Henley : 1995 Date of Consultation: 09/05/23 Primary Care Provider: Evelyn Busch DO Referring Provider: Gus Bradley PA-C Chief Complaint: Abdominal pain History of Present Illness: Jennifer Henley is a 27 y.o. old female seen at the request of Gus Bradley PA-C for evaluation of abdominal pain. For the past several years she has had intermittent postprandial right upper quadrant abdominal pain. I initially evaluated her for this in June 2019. She has always had a normal workup including HIDA scans and ultrasounds. However, her symptoms remain fairly consistent and that she has postprandial right upper quadrant abdominal pain that is worse with greasy and fatty foods. These episodes have become more frequent with time and have increased in severity. She is now having these episodes a couple times per month. She has associated nausea and bloating but does not vomit. She denies any fever, yellowing of the skin or eyes at the time of these episodes. She has seen a power transformer repairer and had a normal EGD. She was previously having chronic constipation, but that has resolved after course of antibiotics that she was taking for unrelated reasons. She currently has bowel movements daily that are soft and formed. She is not on any stool softeners, fiber supplements, or laxatives. She has never seen blood in the stool. Medical History: Migraines IBS POTS Palpitations, PVC's Surgical History: Colonoscopy, EGD Knee surgery in 2013 and 2019 Home Medications: Prior to Admission medications Medication Sig Start Date End Date Taking? Authorizing Provider dicyclomine (Bentyl) 20 mg tablet Take 1 tablet (20 mg) by mouth 4 times a day as needed (abdominal pain or cramps). 08/06/23 10/05/23 Gus Bradley PA-C famotidine (Pepcid) 20 mg tablet Take 1 tablet (20 mg) by mouth 2 times a day for 7 days. 08/06/23 08/13/23 Gus Bradley PA-C flu vacc [id number] 6mos up, PF, (Flulaval Quad [id number], PF,) syringe Inject into the muscle. 09/04/23 Ruben Daniel DO gabapentin (Neurontin) 300 mg capsule TAKE 1 CAPSULE BY MOUTH 2 TIMES A DAY 01/22/23 01/22/24 Evelyn Busch DO midodrine (Proamatine) 2.5 mg tablet TAKE 1 TABLET BY MOUTH EVERY MORNING FOR 1 WEEK, THEN TWICE DAILY 07/05/23 norethindrone ac-eth estradioL (Microgestin 10/26) 1-20 mg-mcg tablet Take 1 tablet by mouth once daily. 08/23/23 08/22/24 MICHAEL Marcus, DAVID WOMACK norethindrone-e.estradioL-iron (Lo Loestrin) 1 mg-10 mcg (24)/10 mcg (2) tablet TAKE 1 TABLET DAILY DIRECTED. 12/06/22 12/06/23 MICHAEL Marcus, DAVID WOMACK promethazine (Phenergan) 25 mg tablet Take 1 tablet (25 mg) by mouth every 6 hours if needed for nausea or vomiting. 08/06/23 Gus Bradley PA-C propranolol (Inderal) 10 mg tablet TAKE 1 TABLET BY MOUTH EVERY DAY AT BEDTIME 03/20/23 03/19/24 VU Roy Qulipta 60 mg tablet tablet Take 1 tablet (60 mg) by mouth once daily. 01/17/22 Historical Provider, MD [place]vall 0.725 mg/pump act. (4 mg/mL) spray,non-aerosol Administer into affected nostril(s). 10/18/21 Historical Provider, zonisamide (Zonegran) 100 mg capsule TAKE 3 CAPSULES (300 MG) BY MOUTH ONCE DAILY AT BEDTIME. 01/31/23 01/31/24 Evelyn Busch DO Allergies: is allergic to penicillins. Family History: Maternal aunt with cholangiocarcinoma. The same aunt had factor V Leiden deficiency, as did her maternal grandfather. Social History: . Non-smoker. No alcohol or drug use. ROS: Constitutional: + Weight gain, fatigue Cardiovascular: + POTS Respiratory: No cough or shortness of breath Gastrointestinal: + Postprandial right upper quadrant abdominal pain with associated bloating and nausea, food sensitivities. No vomiting. Genitourinary: no dark-colored urine, + irregular menstrual cycles Musculoskeletal: no weakness or swelling Integumentary: no jaundice Neurological: + Headaches Endocrine: + Heat/cold intolerance, hot flashes Heme/Lymph: no easy bruising or bleeding Objective: BP 112/68 Pulse 80 Ht 1.626 m (5' 4) Wt 98.2 kg (216 lb 6.4 oz) BMI 37.14 kg/m Physical Exam: Constitutional: No acute distress, conversant, pleasant, accompanied by her Neurologic: alert and oriented Psych: appropriate affect Ears, Nose, Mouth and Throat: mucus membranes moist Pulmonary: No labored breathing Cardiovascular: Regular rate and rhythm Abdomen: soft, non-distended, BMI 36, focally tender in the right upper quadrant immediately overlying the gallbladder, no surgical scars Musculoskeletal: Moves all extremities, no edema Skin: no jaundice Labs: Labs from 08/06/23 reviewed: WBC 9.4, Hgb 11.7, LFTs within normal limits including T. bili 0.3 Imaging: Abdominal ultrasound from 08/08/23 reviewed: The gallbladder is nondistended. No stones, wall thickening, or pericholecystic fluid. Sonographic Guaman sign is negative. No biliary ductal dilation, CBD measures 3 mm. Liver is unremarkable. HIDA scan from 08/03/23 reviewed: Patent cystic duct and common bile duct, without evidence of cholecystitis. Normal ejection fraction estimated at 83%. She also had a normal right upper quadrant ultrasound on 10/18/22, no stones. She had a normal HIDA scan on 10/25/22. She had a CT scan of the abdomen and pelvis from 10/02/22 that showed no calcified gallstones, no biliary ductal dilation, and no acute intra-abdominal pathology. Assessment and Plan: Jennifer Henley is a 27 y.o. old female with symptoms of biliary dyskinesia. Risks, benefits and alternatives of laparoscopic cholecystectomy were discussed with the patient. This included risk of bleeding, infection, viscous injury, conversion to an open procedure, bile leakage or bile duct injury, post-cholecystectomy diarrhea, and possible need for subsequent endoscopic or surgical interventions. We specifically discussed that with a normal workup, it is possible that she will have nonresolution or recurrence of her symptoms. That said, I think it is reasonable to offer cholecystectomy given that she is focally tender immediately overlying the gallbladder and her symptoms are fairly classic for biliary etiology. The patient was agreeable to proceed with surgery and is scheduled for laparoscopic cholecystectomy on 09/25/23. Evelyn Del Rio MD 09/05/2023 documented in this encounter [facility] Work Phone: 09-23-2023 Note Formatting of this n ote is different from the original. No outpatient medications have been marked as taking for the 09/25/23 encounter (Hospital Encounter). NPO Instructions: Nothing to eat or drink after midnight Additional Instructions: Will need transfer driver home. Will receive call day before surgery with arrival time [facility] 09-05-2023 History of Present illness Narrative General Surgery Consultation Patient: Jennifer Henley : 1995 Date of Consultation: 09/05/23 Primary Care Provider: Evelyn Busch DO Referring Provider: Gus Bradley PA-C Chief Complaint: Abdominal pain History of Present Illness: Jennifer Henley is a 27 y.o. old female seen at the request of Gus Bradley PA-C for evaluation of abdominal pain. For the past several years she has had intermittent postprandial right upper quadrant abdominal pain. I initially evaluated her for this in June 2019. She has always had a normal workup including HIDA scans and ultrasounds. However, her symptoms remain fairly consistent and that she has postprandial right upper quadrant abdominal pain that is worse with greasy and fatty foods. These episodes have become more frequent with time and have increased in severity. She is now having these episodes a couple times per month. She has associated nausea and bloating but does not vomit. She denies any fever, yellowing of the skin or eyes at the time of these episodes. She has seen a power transformer repairer and had a normal EGD. She was previously having chronic constipation, but that has resolved after course of antibiotics that she was taking for unrelated reasons. She currently has bowel movements daily that are soft and formed. She is not on any stool softeners, fiber supplements, or laxatives. She has never seen blood in the stool. Medical History: Migraines IBS POTS Palpitations, PVC's Surgical History: Colonoscopy, EGD Knee surgery in 2013 and 2019 Home Medications: Prior to Admission medications Medication Sig Start Date End Date Taking? Authorizing Provider dicyclomine (Bentyl) 20 mg tablet Take 1 tablet (20 mg) by mouth 4 times a day as needed (abdominal pain or cramps). 08/06/23 10/05/23 Gus Bradley PA-C famotidine (Pepcid) 20 mg tablet Take 1 tablet (20 mg) by mouth 2 times a day for 7 days. 08/06/23 08/13/23 Gus Bradley PA-C flu vacc [id number] 6mos up, PF, (Flulaval Quad [id number], PF,) syringe Inject into the muscle. 09/04/23 Ruben Daniel, gabapentin (Neurontin) 300 mg capsule TAKE 1 CAPSULE BY MOUTH 2 TIMES A DAY 01/22/23 01/22/24 Evelyn Busch, midodrine (Proamatine) 2.5 mg tablet TAKE 1 TABLET BY MOUTH EVERY MORNING FOR 1 WEEK, THEN TWICE DAILY 07/05/23 norethindrone ac-eth estradioL (Microgestin 10/26) 1-20 mg-mcg tablet Take 1 tablet by mouth once daily. 08/23/23 08/22/24 MICHAEL Marcus, DAVID WOMACK norethindrone-e.estradioL-iron (Lo Loestrin) 1 mg-10 mcg (24)/10 mcg (2) tablet TAKE 1 TABLET DAILY DIRECTED. 12/06/22 12/06/23 MICHAEL Marcus, DAVID WOMACK promethazine (Phenergan) 25 mg tablet Take 1 tablet (25 mg) by mouth every 6 hours if needed for nausea or vomiting. 08/06/23 Gus Bradley PA-C propranolol (Inderal) 10 mg tablet TAKE 1 TABLET BY MOUTH EVERY DAY AT BEDTIME 03/20/23 03/19/24 VU Roy Qulipta 60 mg tablet tablet Take 1 tablet (60 mg) by mouth once daily. 01/17/22 Historical Provider, Trudhesa 0.725 mg/pump act. (4 mg/mL) spray,non-aerosol Administer into affected nostril(s).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 , childbirth, or the puerperium, unspecified as to episode of care or not applicable Penicillin allergy Personal history of allergy to penicillin [facility]* Diagnosis Encounter for screening for malformation using ultrasound ([facility])- Primary 13 weeks gestation of ([facility]) state, incidental Encounter for (NT) nuchal translucency scan ([facility]) Other specified screening [facility]* Diagnosis Supervision of high risk , antepartum (HCC)- Primary Obesity in (HCC) Obesity complicating , childbirth, or the puerperium, unspecified as to episode of care or not applicable Postural orthostatic tachycardia syndrome Tachycardia, unspecified 16 weeks gestation of ([facility]) state, incidental Elevated BP without diagnosis of hypertension documented in this encounter [facility]* Diagnosis Vaginal yeast infection- Primary Candidiasis of vulva and vagina [facility]* Diagnosis Chronic migraine with aura without status migrainosus, not intractable- Primary POTS (postural orthostatic tachycardia syndrome) Unspecified tachycardia Chronic migraine without aura without status migrainosus, not intractable Acute nonintractable headache, unspecified headache type- Primary Urinary tract infection without hematuria, site unspecified documented in this encounter [facility] Work Phone: Evaluation note* Diagnosis Obesity in (HCC)- Primary Obesity complicating , childbirth, or the puerperium, unspecified as to episode of care or not applicable with uncertain dates, antepartum ([facility]) state, incidental Low-lying placenta without hemorrhage, second trimester ([facility]) documented in this encounter [facility] note* Diagnosis 20 weeks gestation of (HCC)- Primary state, incidental Supervision of high risk , antepartum (HCC) Obesity in (HCC) Obesity complicating , childbirth, or the puerperium, unspecified as to episode of care or not applicable Postural orthostatic tachycardia syndrome Tachycardia, unspecified Low lying placenta, antepartum (HCC) [facility] Diagnosis Adverse effect of penicillin, initial encounter- Primary Adverse effect of cephalosporin, initial encounter 27 weeks gestation of (HCC) state, incidental [facility] Diagnosis Supervision of high risk , antepartum (HCC)- Primary 28 weeks gestation of (HCC) state, incidental Obesity in (HCC) Obesity complicating , childbirth, or the puerperium, unspecified as to episode of care or not applicable Postural orthostatic tachycardia syndrome Tachycardia, unspecified Low-lying placenta without hemorrhage, second trimester (HCC) Need for vaccination Need for prophylactic vaccination and inoculation against unspecified single disease Encounter for immunization Need for other specified prophylactic vaccination against single bacterial disease Penicillin allergy Personal history of allergy to penicillin [facility]* Diagnosis Diet controlled gestational diabetes mellitus (GDM) in third trimester ([facility])- Primary [facility]ative - Reported* Type Description Date Medical History POTS Medical History migraines [place] Other History of Present illness Narrative* Patient referred by Evelyn Busch DO with history significant for migraine, GERD, and IBS here today to discuss headache. * Migraines felt more in the eyes, with shooting pain the top of the head going down, then hurts everywhere. Other headaches can be bifrontal, sometimes shooting down, and sometimes the back of the head. Getting in about 30 days. * Described as occurring in different locations at different times, behind both eyes, sharp pain thatshoots across top of head L>R. Headaches associated with nausea (after COVID infection), photophobia/phonophobia. Sees flashes of light before or during headache (new after Covid), double vision during headache. Can get a weird burnt smell beforehand. Sometimes difficult to find words, feel cognitive slowing during headache, but can occur other times. Worsens headache with cough/sneeze/bearingdown. Left eyelid will droop during headache. * Triggers include smells (like essential oils, perfume, food smells), light, sound, weather changes.Denies triggers alcohol (does not drink much), stress, sleep changes, certain foods, menses (on depo). * Has tried the following medications and treatments: * Aimovig not as helpful as the Pbovy was, still getting headaches daily, some decrease in severity of headache. * Trudhesa Effetive as an abortive for headaches, no side effects, works most of the time. * Gabapentin was helpful in the past, but not currently. During increase felt more sluggish and didn t help with the headaches. * Zonisamide helps with sleep, but doesn t help with the headaches currently * Ondansetron for nausea, sometimes helpful. * Past Meds: * Emgality for 3-4 months, has lessened migraines, but still with daily headaches. * Naratriptan 2.5mg no longer effective, was helpful in the past, no side effects. No triptans used in past 24 hours. * Avery was on it monthly, previously it was helpful, was able to get down to a few days a month withheadache. [place] energized and semi-normal at the time. * Prednisone cannot recall effect on headache, no side effects. * Sumatriptan shot and nasal spray not helpful. * Nurtec made nauseated, not helpful. * Ubrelvy helped but knocked her out. * Topiramate hallucinating and GI issues, slowed digestion. * Amitriptyline did not help, cannot recall side effects * Toradol injection alone was insufficient to break cycle of migraines when they started in 2019. * Hot shower, ice packs sometimes helps. Draws the shades. * PT neck massage, did not seem to help. Did some exercises/stretches to do during headaches that does not seem to improve. * Record Review: * 10/18/2021 note: * Reports migraines started 01/2019 and were occurring daily until under control with Ajovy. However, 09/2020 with covid infection, after which has been having almost a daily headache, 25 headache days per month. Worst headache pain in past month was 8/10. Has had to call off of work. Occurs at randomtimes of day. * 09/20/2021 MRI brain without contrast impression: * * There is no evidence of mass, infarction or hemorrhage. * This note was partially generated using the [employer] voice recognition system. There may be typographical errors, spelling, or punctuation errors that were not corrected prior to committing the note tothe medical record. [id number]-[id number] 170 DO Work Phone: History of Present illness NarrativePatient presents with her soon-to-be . They are preparing for their wedding this Saturday. Will be leaving from [place] to a cruise by [place] the following week. Qulipta is offering some benefit, hopeful to wean off of gabapentin and zonisamide if the Qulipta is effective.[id number]-[id number]-Zpsdaq 170 DO Work Phone: History of Present illness Narrative* Patient referred by Evelyn Busch DO with history significant for migraine, GERD, and IBS here today to discuss headache. * Patient notes that the Qulipta has been helpful for her migraines however she continues to have a lower level headache that is not associated with light sensitivity. Notes that 1 time it occurred when she turned her neck, and had significant neck pain while talking to a passenger. 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 Notes that these lower level headaches are typically there in the morning, does not necessarily worsen through the course of the day. She notes that the occipital nerve block was helpful, she had her wedding day without any headache issues. * Headaches described as occurring in different locations at different times, behind both eyes, sharppain that shoots across top of head L>R. Headaches associated with nausea (after COVID infection), photophobia/phonophobia. Sees flashes of light before or during headache (new after Covid), double vision during headache. Can get a weird burnt smell beforehand. Sometimes difficult to find words,feel cognitive slowing during headache, but can occur other times. Worsens headache with cough/sneeze/bearing down. Left eyelid will droop during headache. * Triggers include smells (like essential oils, perfume, food smells), light, sound, weather changes.Denies triggers alcohol (does not drink much), stress, sleep changes, certain foods, menses (on depo). * Has tried the following medications and treatments: * Qulipta very helpful to reduce the frequency and severity of her migraines, now happening about once a month. * Trudhesa effective as an abortive for headaches, no side effects, works most of the time. * Gabapentin was helpful in the past, but not currently. During increase felt more sluggish and didn t help with the headaches. * Zonisamide helps with sleep, but doesn t help with the headaches currently * Ondansetron for nausea, sometimes helpful. * Past Meds: * Aimovig not as helpful as the Ajovy was, still getting headaches daily, some decrease in severity of headache. * Emgality for 3-4 months, has lessened migraines, but still with daily headaches. * Naratriptan 2.5mg no longer effective, was helpful in the past, no side effects. No triptans used in past 24 hours. * Avery was on it monthly, previously it was helpful, was able to get down to a few days a month withheadache. [place] energized and semi-normal at the time. * Prednisone cannot recall effect on headache, no side effects. * Sumatriptan shot and nasal spray not helpful. * Nurtec made nauseated, not helpful. * Ubrelvy helped but knocked her out. * Topiramate hallucinating and GI issues, slowed digestion. * Amitriptyline did not help, cannot recall side effects * Toradol injection alone was insufficient to break cycle of migraines when they started in 2019. * Hot shower, ice packs sometimes helps. Draws the shades. * PT neck massage, did not seem to help. Did some exercises/stretches to do during headaches that does not seem to improve. * Record Review: * 10/18/2021 note: * Reports migraines started 01/2019 and were occurring daily until under control with Ajovy. However, 09/2020 with covid infection, after which has been having almost a daily headache, 25 headache days per month. Worst headache pain in past month was 8/10. Has had to call off of work. Occurs at randomtimes of day. * 09/20/2021 MRI brain without contrast impression: * * There is no evidence of mass, infarction or hemorrhage. * This note was partially generated using the [employer] voice recognition system. There may be typographical errors, spelling, or punctuation errors that were not corrected prior to committing the note tothe medical record. [id number]-Muaxtoome-Joaabn 170 DO Work Phone: History of Present illness Narrative* Ms. HENLEY presents with signs and symptoms consistent with and demonstrates impairments/limitations in . They would benefit from skilled Physical Therapy with combination of manual therapy techniques to decrease myofascial and joint restrictions, as well as progression of exercises for ROM, fl exibility, strength, core stabilization, and postural retraining, and body mechanics education throughout POC to progress towards independence with ADL s/IADL s and return to PLOF. * Clinical Presentation: Evolving with changing characteristics. * Level of Complexity: low * Problem List: activity limitations, ADLs/IADLs/self care skills, decreased functional level, flexibility, motor function/control/tone, pain, participation restrictions, posture, range of motion/jointmobility and strength. [facility] Work Phone: History of Present illness Narrative* Ms. HENLEY presents with signs and symptoms consistent with Medical diagnosis of Cervical Dystonia and PT diagnosis of Cervical pain and stiffness in cervical spine. She demonstrates impairments/limitations in Cervical AROM, decreased MMT proximally at shoulders and cervical spine with fair motor control, significant myofascial restriction throughout cervical musculature as well as upper thoracic/shoulders. She also has significant restriction in suboccipitals, which responded well to STM to release them after eval this date. They would benefit from skilled Physical Therapy with combination of manual therapy techniques to decrease myofascial and joint restrictions, as well as progression ofexercises for ROM, flexibility, strength, core stabilization, and postural retraining, and body mechanics education throughout POC to progress towards independence with ADL s/IADL s and return to PLOF. * Clinical Presentation: Evolving with changing characteristics. * Level of Complexity: low * Problem List: activity limitations, ADLs/IADLs/self care skills, decreased functional level, flexibility, motor function/control/tone, pain, participation restrictions, posture, range of motion/jointmobility and strength. [facility] Work Phone: History of Present illness Narrative* Patient is here today for sick visit. * Patient reports that other day at work she was getting ready and she felt really dizzy and shaky. * She noticed that her oxygen was ok when she checked it but her HR was moving from 70s to low 100s. * She was able to get ready for work.At work she was ok but just tired. * Later that evening she felt like her whole body was shaking. * Drank a juice, her HR just sitting went form 80s to 120s. * She just was very tired the rest of the night. * Saturday when she got up she was trying to crab picker some stuffing that her dog had torn out of a toy. * Was dusting a tv stand and she again felt the palpitations. * She is not on any new medication other than Quilpita which she has been on for a few months. [facility] Work Phone: History of Present illness Narrative* Patient is here today for sick visit. * Patient reports that other day at work she was getting ready and she felt really dizzy and shaky. * She noticed that her oxygen was ok when she checked it but her HR was moving from 70s to low 100s. * She was able to get ready for work.At work she was ok but just tired. * Later that evening she felt like her whole body was shaking. * Drank a juice, her HR just sitting went form 80s to 120s. * She just was very tired the rest of the night. * Saturday when she got up she was trying to crab picker some stuffing that her dog had torn out of a toy. * Was dusting a tv stand and she again felt the palpitations. * She is not on any new medication other than Quilpita which she has been on for a few months. [facility] Work Phone: History of Present illness Narrative* Pt. presents to [facility]. 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 Reports normal pap in 2019 in [place], next pap due 2022. * Pt. with history of migraines, has used DMPA x 2 years and desires to continue. States she is due for her next DMPA injection on 06/25/22. * Pt. denies any other c/o or concerns [address] Work Phone: History of Present illness Narrative* Patient referred by Evelyn Busch DO with history significant for migraine, GERD, and IBS here today to discuss headache. * Patient reports significant improvement in the frequency and severity of her headaches and migraines with physical therapy. The exercises, dry needling, and massage are helpful. Notes that Qulipta has been very helpful for migraine prevention. Trudhesa very helpful for rescue, but she is running into issues getting it authorized. She is sending in an appeal, she will give our office that denial letter. * Unfortunately, she notes that she developed some sort of a heart issue, 04/2022 experienced the first spell of lightheadedness, dizziness, shaky sensation, heart racing (150 bpm when she measured nikhil later episode), notes that occurred again the following day. Notes that is typically triggered by standing or walking up steps. She notes that she is constantly feeling fatigued. She has completed an echo/stress test with cardiology which have been normal, and tilt table test has not been completed. * Headaches described as occurring in different locations at different times, behind both eyes, sharppain that shoots across top of head L>R. Headaches associated with nausea (after COVID infection), photophobia/phonophobia. * Triggers include smells (like essential oils, perfume, food smells), light, sound, weather changes.Denies triggers alcohol (does not drink much), stress, sleep changes, certain foods, menses (on depo). 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 * Has tried the following medications and treatments: * Qulipta very helpful to reduce the frequency and severity of her migraines, now happening about once a month. * Trudhesa effective as an abortive for headaches, no side effects, works most of the time. Usually one dose is sufficient, when severe might need a second dose * Gabapentin was helpful in the past, but not currently. During increase felt more sluggish and didn t help with the headaches. * Zonisamide helps with sleep, but doesn t help with the headaches currently * Ondansetron for nausea, sometimes helpful. * Past Meds: * Ibuprofen without benefit for headache. * Tylenol not effective. * Aimovig not as helpful as the Ajovy was, still getting headaches daily, some decrease in severity of headache. * Emgality for 3-4 months, has lessened migraines, but still with daily headaches. * Naratriptan 2.5mg no longer effective, was helpful in the past, no side effects. No triptans used in past 24 hours. * Avery was on it monthly, previously it was helpful, was able to get down to a few days a month withheadache. [place] energized and semi-normal at the time. * Prednisone cannot recall effect on headache, no side effects. * Sumatriptan shot and nasal spray not helpful. * Nurtec made nauseated, not helpful. * Ubrelvy helped but knocked her out. * Topiramate hallucinating and GI issues, slowed digestion. * Amitriptyline did not help, cannot recall side effects * Toradol injection alone was insufficient to break cycle of migraines when they started in 2019. * Occipital nerve block was helpful, she had her day without any headache issues. * Hot shower, ice packs sometimes helps. Draws the shades. * PT neck massage, did not seem to help. Did some exercises/stretches to do during headaches that does not seem to improve. * Record Review: * 04/18/2022 Visit note: * Sees flashes of light before or during headache (new after Covid), double vision during headache. Can get a weird burnt smell beforehand. Sometimes difficult to find words, feel cognitive slowing during headache, but can occur other times. Worsens headache with cough/sneeze/bearing down. Left eyelid will droop during headache. * Patient notes that the Qulipta has been helpful for her migraines however she continues to have a lower level headache that is not associated with light sensitivity. Notes that 1 time it occurred when she turned her neck, and had significant neck pain while talking to a passenger. Notes that these lower level headaches are typically there in the morning, does not necessarily worsen through the course of the day. * 10/18/2021 note: * Reports migraines started 01/2019 and were occurring daily until under control with Ajovy. However, 09/2020 with covid infection, after which has been having almost a daily headache, 25 headache days per month. Worst headache pain in past month was 8/10. Has had to call off of work. Occurs at randomtimes of day. * 09/20/2021 MRI brain without contrast impression: * * There is no evidence of mass, infarction or hemorrhage. * This note was partially generated using the [employer] voice recognition system. There may be typographical errors, spelling, or punctuation errors that were not corrected prior to committing the note tothe medical record. [id number] DO Work Phone: History of Present illness Narrative* Patient referred by Evelyn Busch DO with history significant for migraine, GERD, and IBS here today to discuss headache. * Patient reports significant improvement in the frequency and severity of her headaches and migraines with physical therapy. The exercises, dry needling, and massage are helpful. Notes that Qulipta has been very helpful for migraine prevention. Trudhesa very helpful for rescue, but she is running into issues getting it authorized. She is sending in an appeal, she will give our office that denial letter. * Unfortunately, she notes that she developed some sort of a heart issue, 04/2022 experienced the first spell of lightheadedness, dizziness, shaky sensation, heart racing (150 bpm when she measured nikhil later episode), notes that occurred again the following day. Notes that is typically triggered by standing or walking up steps. She notes that she is constantly feeling fatigued. She has completed an echo/stress test with cardiology which have been normal, and tilt table test has not been completed. * Headaches described as occurring in different locations at different times, behind both eyes, sharppain that shoots across top of head L>R. Headaches associated with nausea (after COVID infection), photophobia/phonophobia. * Triggers include smells (like essential oils, perfume, food smells), light, sound, weather changes.Denies triggers alcohol (does not drink much), stress, sleep changes, certain foods, menses (on depo). 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 * Has tried the following medications and treatments: * Qulipta very helpful to reduce the frequency and severity of her migraines, now happening about once a month. * Trudhesa effective as an abortive for headaches, no side effects, works most of the time. Usually one dose is sufficient, when severe might need a second dose * Gabapentin was helpful in the past, but not currently. During increase felt more sluggish and didn t help with the headaches. * Zonisamide helps with sleep, but doesn t help with the headaches currently * Ondansetron for nausea, sometimes helpful. * Past Meds: * Ibuprofen without benefit for headache. * Tylenol not effective. * Aimovig not as helpful as the Ajovcipriano was, still getting headaches daily, some decrease in severity of headache. * Emgality for 3-4 months, has lessened migraines, but still with daily headaches. * Naratriptan 2.5mg no longer effective, was helpful in the past, no side effects. No triptans used in past 24 hours. * Avery was on it monthly, previously it was helpful, was able to get down to a few days a month withheadache. [place] energized and semi-normal at the time. * Prednisone cannot recall effect on headache, no side effects. * Sumatriptan shot and nasal spray not helpful. * Nurtec made nauseated, not helpful. * Ubrelvy helped but knocked her out. * Topiramate hallucinating and GI issues, slowed digestion. * Amitriptyline did not help, cannot recall side effects * Toradol injection alone was insufficient to break cycle of migraines when they started in 2019. * Occipital nerve block was helpful, she had her day without any headache issues. * Hot shower, ice packs sometimes helps. Draws the shades. * PT neck massage, did not seem to help. Did some exercises/stretches to do during headaches that does not seem to improve. * Record Review: * 04/18/2022 Visit note: * Sees flashes of light before or during headache (new after Covid), double vision during headache. Can get a weird burnt smell beforehand. Sometimes difficult to find words, feel cognitive slowing during headache, but can occur other times. Worsens headache with cough/sneeze/bearing down. Left eyelid will droop during headache. * Patient notes that the Qulipta has been helpful for her migraines however she continues to have a lower level headache that is not associated with light sensitivity. Notes that 1 time it occurred when she turned her neck, and had significant neck pain while talking to a passenger. Notes that these lower level headaches are typically there in the morning, does not necessarily worsen through the course of the day. * 10/18/2021 note: * Reports migraines started 01/2019 and were occurring daily until under control with Ajovy. However, 09/2020 with covid infection, after which has been having almost a daily headache, 25 headache days per month. Worst headache pain in past month was 8/10. Has had to call off of work. Occurs at randomtimes of day. * 09/20/2021 MRI brain without contrast impression: * * There is no evidence of mass, infarction or hemorrhage. * This note was partially generated using the [employer] voice recognition system. There may be typographical errors, spelling, or punctuation errors that were not corrected prior to committing the note tothe medical record. [facility] Work Phone: History of Present illness Narrative* Patient is here today for Ed follow up * Migraines - improved, following with Neurology, on Qlipta now, having only a few migraines since and having sig less daily headaches. Next appt they are going to work on getting off the gabapentin and zonisamide. Using Trudhesa prn for migraines. * Pt reports that on [place] even she was sitting playing cards and she had sudden sharp severe Pain in RLQ. Lasted for a few minutes, got up [place] and the pain was a 3/4 dull brittnee, was there all day, no appetite, tried eating mashed potatoes for dinner and that made her nauseas. Was getting thesharp pain intermittently all day. A few days after [place] and the same thing happened again so she went to the Ed, CT was negative appendicitis. Ua showed slight UTI and low potassium at 3.1. Sent home with K prescription. * She is still having some abd pain but now it is more RUQ and the sharp pain was worse after eating. * No heartburn , no burning or belching. * She is on depo shot does not have periods. [facility] Work Phone: History of Present illness Narrative* Patient is here today for Ed follow up * Migraines - improved, following with Neurology, on Qlipta now, having only a few migraines since and having sig less daily headaches. Next appt they are going to work on getting off the gabapentin and zonisamide. Using Trudhesa prn for migraines. * Pt reports that on [place] even she was sitting playing cards and she had sudden sharp severe Pain in RLQ. Lasted for a few minutes, got up [place] and the pain was a 3/4 dull brittnee, was there all day, no appetite, tried eating mashed potatoes for dinner and that made her nauseas. Was getting thesharp pain intermittently all day. A few days after [place] and the same thing happened again so she went to the Ed, CT was negative appendicitis. Ua showed slight UTI and low potassium at 3.1. Sent home with K prescription. * She is still having some abd pain but now it is more RUQ and the sharp pain was worse after eating. * No heartburn , no burning or belching. * She is on depo shot does not have periods. [facility] Work Phone: History of Present illness NarrativePt. presents to discuss change in contraception. Using DMPA x 2+ years and wants to change to OCP due to wanting to conceive in the next year. Hx of migraine. Pt. states she used OCP without any problem in the past and has recently been dx with POTS and was told that could actually be the cause of her headaches, rather than migraine [address] Work Phone: History of Present illness Narrative* Patient being assessed today for follow-up of POTS. She reports that at least weekly she is having syncopal episodes without loss of consciousness. Reviewed orthostatic diary and it is stable. Her pressure does run in the lower range. Patient is also reporting extreme fatigue. Will start using the propranolol as needed and start her on fludrocortisone daily for 1 week then increase to twice daily based on symptoms. Discussed role of medicine, importance of taking medications, potential risks, benefits, and precautions to be taken. Reviewed sleep hygiene and dietary modifications. Patient to notify office in 4 weeks of efficacy. Follow-up in 3 to 6 months. * This note was created with voice recognition software and was not corrected for typographical orgrammatical errors [id number] Work Phone: History of Present illness Narrative* Patient referred by Evelyn Busch DO with history significant for migraine, GERD, and IBS here today to discuss headache. * Patient reports significant improvement in the frequency and severity of her headaches and migraines with physical therapy. The exercises, dry needling, and massage are helpful. Notes that Qulipta has been very helpful for migraine prevention. Trudhesa very helpful for rescue, but she is running into issues getting it authorized. She is sending in an appeal, she will give our office that denial letter. * Unfortunately, she notes that she developed some sort of a heart issue, 04/2022 experienced the first spell of lightheadedness, dizziness, shaky sensation, heart racing (150 bpm when she measured nikhil later episode), notes that occurred again the following day. Notes that is typically triggered by standing or walking up steps. She notes that she is constantly feeling fatigued. She has completed an echo/stress test with cardiology which have been normal, and tilt table test has not been completed. * Headaches described as occurring in different locations at different times, behind both eyes, sharppain that shoots across top of head L>R. Headaches associated with nausea (after COVID infection), photophobia/phonophobia. * Triggers include smells (like essential oils, perfume, food smells), light, sound, weather changes.Denies triggers alcohol (does not drink much), stress, sleep changes, certain foods, menses (on depo). 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 * Has tried the following medications and treatments: * Qulipta very helpful to reduce the frequency and severity of her migraines, now happening about once a month. * Trudhesa effective as an abortive for headaches, no side effects, works most of the time. Usually one dose is sufficient, when severe might need a second dose * Gabapentin was helpful in the past, but not currently. During increase felt more sluggish and didn t help with the headaches. * Zonisamide helps with sleep, but doesn t help with the headaches currently * Ondansetron for nausea, sometimes helpful. * Past Meds: * Ibuprofen without benefit for headache. * Tylenol not effective. * Aimovig not as helpful as the Ajovy was, still getting headaches daily, some decrease in severity of headache. * Emgality for 3-4 months, has lessened migraines, but still with daily headaches. * Naratriptan 2.5mg no longer effective, was helpful in the past, no side effects. No triptans used in past 24 hours. * Avery was on it monthly, previously it was helpful, was able to get down to a few days a month withheadache. [place] energized and semi-normal at the time. * Prednisone cannot recall effect on headache, no side effects. * Sumatriptan shot and nasal spray not helpful. * Nurtec made nauseated, not helpful. * Ubrelvy helped but knocked her out. * Topiramate hallucinating and GI issues, slowed digestion. * Amitriptyline did not help, cannot recall side effects * Toradol injection alone was insufficient to break cycle of migraines when they started in 2019. * Occipital nerve block was helpful, she had her day without any headache issues. * Hot shower, ice packs sometimes helps. Draws the shades. * PT neck massage, did not seem to help. Did some exercises/stretches to do during headaches that does not seem to improve. * Record Review: * 04/18/2022 Visit note: * Sees flashes of light before or during headache (new after Covid), double vision during headache. Can get a weird burnt smell beforehand. Sometimes difficult to find words, feel cognitive slowing during headache, but can occur other times. Worsens headache with cough/sneeze/bearing down. Left eyelid will droop during headache. * Patient notes that the Qulipta has been helpful for her migraines however she continues to have a lower level headache that is not associated with light sensitivity. Notes that 1 time it occurred when she turned her neck, and had significant neck pain while talking to a passenger. Notes that these lower level headaches are typically there in the morning, does not necessarily worsen through the course of the day. * 10/18/2021 note: * Reports migraines started 01/2019 and were occurring daily until under control with Ajovy. However, 09/2020 with covid infection, after which has been having almost a daily headache, 25 headache days per month. Worst headache pain in past month was 8/10. Has had to call off of work. Occurs at randomtimes of day. * 09/20/2021 MRI brain without contrast impression: * * There is no evidence of mass, infarction or hemorrhage. * This note was partially generated using the [employer] voice recognition system. There may be typographical errors, spelling, or punctuation errors that were not corrected prior to committing the note tothe medical record. [facility] Work Phone: History of Present illness Narrative* Patient referred by Evelyn Busch DO with history significant for migraine, POTS, GERD, and IBShere today to discuss headache. * Patient notes that the Qulipta has been helpful for prevention, Trudhesa helpful for rescue but it was no longer authorized by her insurance. 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 She notes that she notes that she was diagnosed with she notes that she was diagnosed with POTS, sees Tammy Simeon for management, POTS difficult in last two days but overall improved. * Headaches described as occurring in different locations at different times, behind both eyes, sharppain that shoots across top of head L>R. Headaches associated with nausea (after COVID infection), photophobia/phonophobia. * Triggers include smells (like essential oils, perfume, food smells), light, sound, weather changes. 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 * Has tried the following medications and treatments: * Qulipta very helpful to reduce the frequency and severity of her migraines, now happening about once a month. * Trudhesa effective as an abortive for headaches, no side effects, works most of the time. Usually one dose is sufficient, when severe might need a second dose * Gabapentin was helpful in the past, but not currently. During increase felt more sluggish and didn t help with the headaches. * Zonisamide helps with sleep, but doesn t help with the headaches currently * Ondansetron for nausea, sometimes helpful. * Past Meds: * Ibuprofen without benefit for headache. * Tylenol not effective. * Aimovig not as helpful as the Ajovy was, still getting headaches daily, some decrease in severity of headache. * Emgality for 3-4 months, has lessened migraines, but still with daily headaches. * Naratriptan 2.5mg no longer effective, was helpful in the past, no side effects. No triptans used in past 24 hours. * A[place] was on it monthly, previously it was helpful, was able to get down to a few days a month withheadache. [place] energized and semi-normal at the time. * Prednisone cannot recall effect on headache, no side effects. * Sumatriptan shot and nasal spray not helpful. * Nurtec made nauseated, not helpful. * Ubrelvy helped but knocked her out. * Topiramate hallucinating and GI issues, slowed digestion. * Amitriptyline did not help, cannot recall side effects * Toradol injection alone was insufficient to break cycle of migraines when they started in 2019. * Occipital nerve block was helpful, she had her day without any headache issues. * Hot shower, ice packs sometimes helps. Draws the shades. * PT neck massage, did not seem to help. Did some exercises/stretches to do during headaches that does not seem to improve. * Record Review: * 08/26/2022 visit note: * Patient reports significant improvement in the frequency and severity of her headaches and migraines with physical therapy. The exercises, dry needling, and massage are helpful. Notes that Qulipta has been very helpful for migraine prevention. Trudhesa very helpful for rescue, but she is running into issues getting it authorized. She is sending in an appeal, she will give our office that denial letter. Denies triggers alcohol (does not drink much), stress, sleep changes, certain foods, menses (on depo). * Unfortunately, she notes that she developed some sort of a heart issue, 04/2022 experienced the first spell of lightheadedness, dizziness, shaky sensation, heart racing (150 bpm when she measured nikhil later episode), notes that occurred again the following day. Notes that is typically triggered by standing or walking up steps. She notes that she is constantly feeling fatigued. She has completed an echo/stress test with cardiology which have been normal, and tilt table test has not been completed. * 04/18/2022 Visit note: * Sees flashes of light before or during headache (new after Covid), double vision during headache. Can get a weird burnt smell beforehand. Sometimes difficult to find words, feel cognitive slowing during headache, but can occur other times. Worsens headache with cough/sneeze/bearing down. Left eyelid will droop during headache. * Patient notes that the Qulipta has been helpful for her migraines however she continues to have a lower level headache that is not associated with light sensitivity. Notes that 1 time it occurred when she turned her neck, and had significant neck pain while talking to a passenger. Notes that these lower level headaches are typically there in the morning, does not necessarily worsen through the course of the day. * 10/18/2021 note: * Reports migraines started 01/2019 and were occurring daily until under control with Ajovy. However, 09/2020 with covid infection, after which has been having almost a daily headache, 25 headache days per month. Worst headache pain in past month was 8/10. Has had to call off of work. Occurs at randomtimes of day. * 09/20/2021 MRI brain without contrast impression: * * There is no evidence of mass, infarction or hemorrhage. * This note was partially generated using the [employer] voice recognition system. There may be typographical errors, spelling, or punctuation errors that were not corrected prior to committing the note tothe medical record. [id number] Work Phone: History of Present illness Narrative* Patient being assessed today for follow-up of POTS. She reports that her symptoms of been well manageable on the fludrocortisone with propranolol as needed before aerobic activities. She is reportingthat she has had significant weight gain and believes it is due to the fludrocortisone. We will titrate down to discontinue the fludrocortisone and start her on midodrine 2.5 mg titrating up to twicedaily. Patient to notify office the end of July to update on efficacy. She will be switching providers to here for her migraine management. After we get the midodrine adjusted we will start to titrate migraine medications down to discontinue as well. Discussed role of medicine, per HPI importance of taking medications, potential risks, benefits, and precautions to be taken. Reviewed sleep hygiene and dietary modifications. Follow-up in 6 months. * This note was created with voice recognition software and was not corrected for typographical orgrammatical errors [id number] [address] DO Work Phone: Hospital Discharge instructions* Attachments The following attachments cannot be sent through Care Everywhere. * Urinary Tract Infection, Adult ED ([place]) * Headache, Adult ED ([place]) [facility]: Instructions* Name Dates Details Instructions not documented [facility] Work Phone: Reason for referral (narrative)* Consultation (Routine) - Pending Review Specialty Diagnoses / Procedures Referred By Contac t Referred To Contact Gastroenterology Diagnoses RUQ abdominal pain Epigastric pain Nausea Gus Bradley PA-C [address] [facility] [place] [phone] Referral ID Status Reason Start Date Expiration Date Visits Requested Visits Authorized [id number] Pending Review Specialty Services Required 3 08/05/2024 1 1 * Imaging (Routine) - Pending Review Specialty Diagnoses / Procedures Referred By Contac t Referred To Contact Radiology Diagnoses RUQ abdominal pain Epigastric pain Nausea Procedures CT abdomen pelvis w IV contrast Gus Bradley PA-C [address] [facility] [place] [phone] Referral ID Status Reason Start Date Expiration Date Visits Requested Visits Authorized [id number] Pending Review Perform Procedure 3 08/05/2024 1 1 * Consultation (Routine) - Pending Review Specialty Diagnoses / Procedures Referred By Contac t Referred To Contact General Surgery Diagnoses RUQ abdominal pain Epigastric pain Gus Bradley PA-C [address] [place] [address] Referral ID Status Reason Start Date Expiration Date Visits Requested Visits Authorized [id number] Pending Review Specialty Services Required 3 08/05/2024 1 1 [facility] Work Phone: Reason for referral (narrative)* Consultation (Routine) - Authorized Specialty Diagnoses / Procedures Referred By Yusuf marin Referred To Contact Rheumatology Diagnoses Arthralgia, unspecified joint Tammy Simeon, ANTHONY-ISAIAH [address] [facility], [facility] B, [address] [address] Referral ID Status Reason Start Date Expiration Date Visits Requested Visits Authorized [id number] Authorized Specialty Services Required 01/09/2024 01/08/2025 1 1 [facility] Work Phone: Reason for visit Narrative* Initial Evaluation . Cervical Dystonia & upper back pain. * Referred by: [facility] Work Phone: Reason for visit Narrative* Consultation (Routine) - Authorized Specialty Diagnoses / Procedures Referred By Yusuf marin Referred To Contact General Surgery Diagnoses RUQ abdominal pain Epigastric pain Gus Bradley, RO [address] [facility] [place] [address] Referral ID Status Reason Start Date Expiration Date Visits Requested Visits Authorized [id number] Authorized Specialty Services Required 3 08/05/2024 1 1 [facility] Work Phone: Assessments Diagnosis Patellofemoral disorder of l eft knee - Primary Diagnosis Left knee pain, unspecified chronicity - Primary Patellofemoral disorder of l eft knee Diagnosis Bilateral numbness and tingling of arms and legs- Primary Diagnosis NDPH (new daily persistent headache)- Primary New daily persistent headache Intractable migraine without aura and without status migrainosus Migraine without aura, with intractable migraine, so stated, without mention of status migrainosus Diagnosis Patellofemoral pain syndrome of left knee Diagnosis Patellofemoral pain syndrome of left knee S/P arthroscopic surgery of left knee Other postprocedural status Diagnosis Patellofemoral disorder of left knee Diagnosis Patellofemoral disorder of left knee Diagnosis Patellofemoral pain syndrome of left knee- Primary S/P arthroscopy of left knee Other postprocedural status Diagnosis Patellofemoral pain syndrome of left knee- Primary Diagnosis S/P left knee arthroscopy- Primary Diagnosis Muscle weakness (generalized)- Primary Numbness and tingling in both hands Worst headache of life Headache Bilateral occipital neuralgia Other syndromes affecting cervical region NDPH (new daily persistent headache) New daily persistent headache Summary Purpose Family History No Family History Records Found Grandmother Name Dates Details Family history of scleroderm a(V19.8, Z82.69) Status:Active aunt Name Dates Details Family history of cholangioc arcinoma(V16.0, Z80.0) Status:Active Mother Name Dates Details Family history of scleroderm a(V19.8, Z82.69) Status:Active Grandmother Name Dates Details Family history of scleroderm a(V19.8, Z82.69) Status:Active aunt Name Dates Details Family history of cholangioc arcinoma(V16.0, Z80.0) Status:Active Mother Name Dates Details Family history of scleroderm a(V19.8, Z82.69) Status:Active Grandmother Name Dates Details Family history of scleroderm a(V19.8, Z82.69) Status:Active aunt Name Dates Details Family history of cholangioc arcinoma(V16.0, Z80.0) Status:Active Mother Name Dates Details Family history of scleroderm a(V19.8, Z82.69) Status:Active Grandmother Name Dates Details Family history of scleroderm a(V19.8, Z82.69) Status:Active aunt Name Dates Details Family history of cholangioc arcinoma(V16.0, Z80.0) Status:Active Mother Name Dates Details Family history of scleroderm a(V19.8, Z82.69) Status:Active Grandmother Name Dates Details Family history of scleroderm a(V19.8, Z82.69) Status:Active aunt Name Dates Details Family history of cholangioc arcinoma(V16.0, Z80.0) Status:Active Mother Name Dates Details Family history of scleroderm a(V19.8, Z82.69) Status:Active Grandmother Name Dates Details Family history of scleroderm a(V19.8, Z82.69) Status:Active aunt Name Dates Details Family history of cholangioc arcinoma(V16.0, Z80.0) Status:Active Mother Name Dates Details Family history of scleroderm a(V19.8, Z82.69) Status:Active Grandmother Name Dates Details Family history of scleroderm a(V19.8, Z82.69) Status:Active aunt Name Dates Details Family history of cholangioc arcinoma(V16.0, Z80.0) Status:Active Mother Name Dates Details Family history of scleroderm a(V19.8, Z82.69) Status:Active Unknown Family Member Name Dates Details Family history of cholangioc arcinoma: Maternal Aunt(V16.0, Z80.0) Status:Active Family history of scleroderm a: Mother, Paternal Grandmother(V19.8, Z82.69) Status:Active Unknown Family Member Name Dates Details Family history of scleroderm a: Mother, Paternal Grandmother(V19.8, Z82.69) Status:Active Family history of cholangioc arcinoma: Maternal Aunt(V16.0, Z80.0) Status:Active Unknown Family Member Name Dates Details Family history of cholangioc arcinoma: Maternal Aunt(V16.0, Z80.0) Status:Active Family history of scleroderm a: Mother, Paternal Grandmother(V19.8, Z82.69) Status:Active Unknown Family Member Name Dates Details Family history of cholangioc arcinoma: Maternal Aunt(V16.0, Z80.0) Status:Active Family history of scleroderm a: Mother, Paternal Grandmother(V19.8, Z82.69) Status:Active Unknown Family Member Name Dates Details Family history of cholangioc arcinoma: Maternal Aunt(V16.0, Z80.0) Status:Active Family history of scleroderm a: Mother, Paternal Grandmother(V19.8, Z82.69) Status:Active Unknown Family Member Name Dates Details Family history of scleroderm a: Mother, Paternal Grandmother(V19.8, Z82.69) Status:Active Family history of cholangioc arcinoma: Maternal Aunt(V16.0, Z80.0) Status:Active Unknown Family Member Name Dates Details Family history of cholangioc arcinoma: Maternal Aunt(V16.0, Z80.0) Status:Active Family history of scleroderm a: Mother, Paternal Grandmother(V19.8, Z82.69) Status:Active Unknown Family Member Name Dates Details Family history of cholangioc arcinoma: Maternal Aunt(V16.0, Z80.0) Status:Active Family history of scleroderm a: Mother, Paternal Grandmother(V19.8, Z82.69) Status:Active Unknown Family Member Name Dates Details Family history of cholangioc arcinoma: Maternal Aunt(V16.0, Z80.0) Status:Active Family history of scleroderm a: Mother, Paternal Grandmother(V19.8, Z82.69) Status:Active Unknown Family Member Name Dates Details Family history of cholangioc arcinoma: Maternal Aunt(V16.0, Z80.0) Status:Active Family history of scleroderm a: Mother, Paternal Grandmother(V19.8, Z82.69) Status:Active Unknown Family Member Name Dates Details Family history of cholangioc arcinoma: Maternal Aunt(V16.0, Z80.0) Status:Active Family history of scleroderm a: Mother, Paternal Grandmother(V19.8, Z82.69) Status:Active Unknown Family Member Name Dates Details Family history of scleroderm a: Mother, Paternal Grandmother(V19.8, Z82.69) Status:Active Family history of cholangioc arcinoma: Maternal Aunt(V16.0, Z80.0) Status:Active Unknown Family Member Name Dates Details Family history of cholangioc arcinoma: Maternal Aunt(V16.0, Z80.0) Status:Active Family history of scleroderm a: Mother, Paternal Grandmother(V19.8, Z82.69) Status:Active Unknown Family Member Name Dates Details Family history of cholangioc arcinoma: Maternal Aunt(V16.0, Z80.0) Status:Active Family history of scleroderm a: Mother, Paternal Grandmother(V19.8, Z82.69) Status:Active Unknown Family Member Name Dates Details Family history of cholangioc arcinoma: Maternal Aunt(V16.0, Z80.0) Status:Active Family history of scleroderm a: Mother, Paternal Grandmother(V19.8, Z82.69) Status:Active Unknown Family Member Name Dates Details Family history of cholangioc arcinoma: Maternal Aunt(V16.0, Z80.0) Status:Active Family history of scleroderm a: Mother, Paternal Grandmother(V19.8, Z82.69) Status:Active Unknown Family Member Name Dates Details Family history of cholangioc arcinoma: Maternal Aunt(V16.0, Z80.0) Status:Active Family history of scleroderm a: Mother, Paternal Grandmother(V19.8, Z82.69) Status:Active Unknown Family Member Name Dates Details Family history of cholangioc arcinoma: Maternal Aunt(V16.0, Z80.0) Status:Active Family history of scleroderm a: Mother, Paternal Grandmother(V19.8, Z82.69) Status:Active Unknown Family Member Name Dates Details Family history of cholangioc arcinoma: Maternal Aunt(V16.0, Z80.0) Status:Active Family history of scleroderm a: Mother, Paternal Grandmother(V19.8, Z82.69) Status:Active Family history of diabetes m ellitus: Grandfather(V18.0, Z83.3) Status:Active Family history of hypertensi on: Grandparent(V17.49, Z82.49) Status:Active Family history of myocardial infarction: Grandmother(V17.3, Z82.49) Status:Active Unknown Family Member Name Dates Details Family history of cholangioc arcinoma: Maternal Aunt(V16.0, Z80.0) Status:Active Family history of scleroderm a: Mother, Paternal Grandmother(V19.8, Z82.69) Status:Active Family history of diabetes m ellitus: Grandfather(V18.0, Z83.3) Status:Active Family history of hypertensi on: Grandparent(V17.49, Z82.49) Status:Active Family history of myocardial infarction: Grandmother(V17.3, Z82.49) Status:Active Unknown Family Member Name Dates Details Family history of cholangioc arcinoma: Maternal Aunt(V16.0, Z80.0) Status:Active Family history of scleroderm a: Mother, Paternal Grandmother(V19.8, Z82.69) Status:Active Family history of diabetes m ellitus: Grandfather(V18.0, Z83.3) Status:Active Family history of hypertensi on: Grandparent(V17.49, Z82.49) Status:Active Family history of myocardial infarction: Grandmother(V17.3, Z82.49) Status:Active Family history of congestive heart failure: Father(V17.49, Z82.49) Status:Active Factor 5 Leiden mutation, he terozygous: Aunt Status:Active Family history of Alzheimer' s disease: Maternal Grandmother(V17.2, Z82.0) Status:Active Family history of kidney dis ease: Paternal Grandmother(V18.69, Z84.1) Status:Active Family history of squamous c ell carcinoma: Paternal Grandmother(V16.9, Z80.9) Status:Active Family history of esophageal carcinoma: Paternal Grandfather(V16.0, Z80.0) Status:Active Metastatic cancer: Paternal Grandmother Status:Active Family history of lung cance r: Paternal Grandmother(V16.1, Z80.1) Status:Active Family history of malignant neoplasm of brain: Paternal Grandmother(V16.8, Z80.8) Status:Active Unknown Family Member Name Dates Details Family history of cholangioc arcinoma: Maternal Aunt(V16.0, Z80.0) Status:Active Family history of scleroderm a: Mother, Paternal Grandmother(V19.8, Z82.69) Status:Active Family history of diabetes m ellitus: Grandfather(V18.0, Z83.3) Status:Active Family history of hypertensi on: Grandparent(V17.49, Z82.49) Status:Active Family history of myocardial infarction: Grandmother(V17.3, Z82.49) Status:Active Family history of congestive heart failure: Father(V17.49, Z82.49) Status:Active Factor 5 Leiden mutation, he terozygous: Aunt Status:Active Family history of Alzheimer' s disease: Maternal Grandmother(V17.2, Z82.0) Status:Active Family history of kidney dis ease: Paternal Grandmother(V18.69, Z84.1) Status:Active Family history of squamous c ell carcinoma: Paternal Grandmother(V16.9, Z80.9) Status:Active Family history of esophageal carcinoma: Paternal Grandfather(V16.0, Z80.0) Status:Active Metastatic cancer: Paternal Grandmother Status:Active Family history of lung cance r: Paternal Grandmother(V16.1, Z80.1) Status:Active Family history of malignant neoplasm of brain: Paternal Grandmother(V16.8, Z80.8) Status:Active Unknown Family Member Name Dates Details Family history of cholangioc arcinoma: Maternal Aunt(V16.0, Z80.0) Status:Active Family history of scleroderm a: Mother, Paternal Grandmother(V19.8, Z82.69) Status:Active Family history of congestive heart failure: Father(V17.49, Z82.49) Status:Active Factor 5 Leiden mutation, he terozygous: Aunt Status:Active Family history of Alzheimer' s disease: Maternal Grandmother(V17.2, Z82.0) Status:Active Family history of kidney dis ease: Paternal Grandmother(V18.69, Z84.1) Status:Active Family history of squamous c ell carcinoma: Paternal Grandmother(V16.9, Z80.9) Status:Active Family history of esophageal carcinoma: Paternal Grandfather(V16.0, Z80.0) Status:Active Metastatic cancer: Paternal Grandmother Status:Active Family history of lung cance r: Paternal Grandmother(V16.1, Z80.1) Status:Active Family history of malignant neoplasm of brain: Paternal Grandmother(V16.8, Z80.8) Status:Active Family history of myocardial infarction: Grandmother(V17.3, Z82.49) Status:Active Family history of hypertensi on: Grandparent(V17.49, Z82.49) Status:Active Family history of diabetes m ellitus: Grandfather(V18.0, Z83.3) Status:Active Unknown Family Member Name Dates Details Family history of cholangioc arcinoma: Maternal Aunt(V16.0, Z80.0) Status:Active Family history of scleroderm a: Mother, Paternal Grandmother(V19.8, Z82.69) Status:Active Family history of diabetes m ellitus: Grandfather(V18.0, Z83.3) Status:Active Family history of hypertensi on: Grandparent(V17.49, Z82.49) Status:Active Family history of myocardial infarction: Grandmother(V17.3, Z82.49) Status:Active Family history of congestive heart failure: Father(V17.49, Z82.49) Status:Active Factor 5 Leiden mutation, he terozygous: Aunt Status:Active Family history of Alzheimer' s disease: Maternal Grandmother(V17.2, Z82.0) Status:Active Family history of kidney dis ease: Paternal Grandmother(V18.69, Z84.1) Status:Active Family history of squamous c ell carcinoma: Paternal Grandmother(V16.9, Z80.9) Status:Active Family history of esophageal carcinoma: Paternal Grandfather(V16.0, Z80.0) Status:Active Metastatic cancer: Paternal Grandmother Status:Active Family history of lung cance r: Paternal Grandmother(V16.1, Z80.1) Status:Active Family history of malignant neoplasm of brain: Paternal Grandmother(V16.8, Z80.8) Status:Active Unknown Family Member Name Dates Details Family history of cholangioc arcinoma: Maternal Aunt(V16.0, Z80.0) Status:Active Family history of scleroderm a: Mother, Paternal Grandmother(V19.8, Z82.69) Status:Active Family history of diabetes m ellitus: Grandfather(V18.0, Z83.3) Status:Active Family history of hypertensi on: Grandparent(V17.49, Z82.49) Status:Active Family history of myocardial infarction: Grandmother(V17.3, Z82.49) Status:Active Family history of congestive heart failure: Father(V17.49, Z82.49) Status:Active Factor 5 Leiden mutation, he terozygous: Aunt Status:Active Family history of Alzheimer' s disease: Maternal Grandmother(V17.2, Z82.0) Status:Active Family history of kidney dis ease: Paternal Grandmother(V18.69, Z84.1) Status:Active Family history of squamous c ell carcinoma: Paternal Grandmother(V16.9, Z80.9) Status:Active Family history of esophageal carcinoma: Paternal Grandfather(V16.0, Z80.0) Status:Active Metastatic cancer: Paternal Grandmother Status:Active Family history of lung cance r: Paternal Grandmother(V16.1, Z80.1) Status:Active Family history of malignant neoplasm of brain: Paternal Grandmother(V16.8, Z80.8) Status:Active Unknown Family Member Name Dates Details Family history of cholangioc arcinoma: Maternal Aunt(V16.0, Z80.0) Status:Active Family history of scleroderm a: Mother, Paternal Grandmother(V19.8, Z82.69) Status:Active Family history of diabetes m ellitus: Grandfather(V18.0, Z83.3) Status:Active Family history of hypertensi on: Grandparent(V17.49, Z82.49) Status:Active Family history of myocardial infarction: Grandmother(V17.3, Z82.49) Status:Active Family history of congestive heart failure: Father(V17.49, Z82.49) Status:Active Factor 5 Leiden mutation, he terozygous: Aunt Status:Active Family history of Alzheimer' s disease: Maternal Grandmother(V17.2, Z82.0) Status:Active Family history of kidney dis ease: Paternal Grandmother(V18.69, Z84.1) Status:Active Family history of squamous c ell carcinoma: Paternal Grandmother(V16.9, Z80.9) Status:Active Family history of esophageal carcinoma: Paternal Grandfather(V16.0, Z80.0) Status:Active Metastatic cancer: Paternal Grandmother Status:Active Family history of lung cance r: Paternal Grandmother(V16.1, Z80.1) Status:Active Family history of malignant neoplasm of brain: Paternal Grandmother(V16.8, Z80.8) Status:Active Unknown Family Member Name Dates Details Family history of cholangioc arcinoma: Maternal Aunt(V16.0, Z80.0) Status:Active Family history of scleroderm a: Mother, Paternal Grandmother(V19.8, Z82.69) Status:Active Family history of diabetes m ellitus: Grandfather(V18.0, Z83.3) Status:Active Family history of hypertensi on: Grandparent(V17.49, Z82.49) Status:Active Family history of myocardial infarction: Grandmother(V17.3, Z82.49) Status:Active Family history of congestive heart failure: Father(V17.49, Z82.49) Status:Active Factor 5 Leiden mutation, he terozygous: Aunt Status:Active Family history of Alzheimer' s disease: Maternal Grandmother(V17.2, Z82.0) Status:Active Family history of kidney dis ease: Paternal Grandmother(V18.69, Z84.1) Status:Active Family history of squamous c ell carcinoma: Paternal Grandmother(V16.9, Z80.9) Status:Active Family history of esophageal carcinoma: Paternal Grandfather(V16.0, Z80.0) Status:Active Metastatic cancer: Paternal Grandmother Status:Active Family history of lung cance r: Paternal Grandmother(V16.1, Z80.1) Status:Active Family history of malignant neoplasm of brain: Paternal Grandmother(V16.8, Z80.8) Status:Active Unknown Family Member Name Dates Details Family history of cholangioc arcinoma: Maternal Aunt(V16.0, Z80.0) Status:Active Family history of scleroderm a: Mother, Paternal Grandmother(V19.8, Z82.69) Status:Active Family history of diabetes m ellitus: Grandfather(V18.0, Z83.3) Status:Active Family history of hypertensi on: Grandparent(V17.49, Z82.49) Status:Active Family history of myocardial infarction: Grandmother(V17.3, Z82.49) Status:Active Family history of congestive heart failure: Father(V17.49, Z82.49) Status:Active Factor 5 Leiden mutation, he terozygous: Aunt Status:Active Family history of Alzheimer' s disease: Maternal Grandmother(V17.2, Z82.0) Status:Active Family history of kidney dis ease: Paternal Grandmother(V18.69, Z84.1) Status:Active Family history of squamous c ell carcinoma: Paternal Grandmother(V16.9, Z80.9) Status:Active Family history of esophageal carcinoma: Paternal Grandfather(V16.0, Z80.0) Status:Active Metastatic cancer: Paternal Grandmother Status:Active Family history of lung cance r: Paternal Grandmother(V16.1, Z80.1) Status:Active Family history of malignant neoplasm of brain: Paternal Grandmother(V16.8, Z80.8) Status:Active Unknown Family Member Name Dates Details Family history of cholangioc arcinoma: Maternal Aunt(V16.0, Z80.0) Status:Active Family history of scleroderm a: Mother, Paternal Grandmother(V19.8, Z82.69) Status:Active Family history of diabetes m ellitus: Grandfather(V18.0, Z83.3) Status:Active Family history of hypertensi on: Grandparent(V17.49, Z82.49) Status:Active Family history of myocardial infarction: Grandmother(V17.3, Z82.49) Status:Active Family history of congestive heart failure: Father(V17.49, Z82.49) Status:Active Factor 5 Leiden mutation, he terozygous: Aunt Status:Active Family history of Alzheimer' s disease: Maternal Grandmother(V17.2, Z82.0) Status:Active Family history of kidney dis ease: Paternal Grandmother(V18.69, Z84.1) Status:Active Family history of squamous c ell carcinoma: Paternal Grandmother(V16.9, Z80.9) Status:Active Family history of esophageal carcinoma: Paternal Grandfather(V16.0, Z80.0) Status:Active Metastatic cancer: Paternal Grandmother Status:Active Family history of lung cance r: Paternal Grandmother(V16.1, Z80.1) Status:Active Family history of malignant neoplasm of brain: Paternal Grandmother(V16.8, Z80.8) Status:Active Unknown Family Member Name Dates Details Family history of cholangioc arcinoma: Maternal Aunt(V16.0, Z80.0) Status:Active Family history of scleroderm a: Mother, Paternal Grandmother(V19.8, Z82.69) Status:Active Family history of diabetes m ellitus: Grandfather(V18.0, Z83.3) Status:Active Family history of hypertensi on: Grandparent(V17.49, Z82.49) Status:Active Family history of myocardial infarction: Grandmother(V17.3, Z82.49) Status:Active Family history of congestive heart failure: Father(V17.49, Z82.49) Status:Active Factor 5 Leiden mutation, he terozygous: Aunt Status:Active Family history of Alzheimer' s disease: Maternal Grandmother(V17.2, Z82.0) Status:Active Family history of kidney dis ease: Paternal Grandmother(V18.69, Z84.1) Status:Active Family history of squamous c ell carcinoma: Paternal Grandmother(V16.9, Z80.9) Status:Active Family history of esophageal carcinoma: Paternal Grandfather(V16.0, Z80.0) Status:Active Metastatic cancer: Paternal Grandmother Status:Active Family history of lung cance r: Paternal Grandmother(V16.1, Z80.1) Status:Active Family history of malignant neoplasm of brain: Paternal Grandmother(V16.8, Z80.8) Status:Active Unknown Family Member Name Dates Details Family history of cholangioc arcinoma: Maternal Aunt(V16.0, Z80.0) Status:Active Family history of scleroderm a: Mother, Paternal Grandmother(V19.8, Z82.69) Status:Active Family history of diabetes m ellitus: Grandfather(V18.0, Z83.3) Status:Active Family history of hypertensi on: Grandparent(V17.49, Z82.49) Status:Active Family history of myocardial infarction: Grandmother(V17.3, Z82.49) Status:Active Family history of congestive heart failure: Father(V17.49, Z82.49) Status:Active Factor 5 Leiden mutation, he terozygous: Aunt Status:Active Family history of Alzheimer' s disease: Maternal Grandmother(V17.2, Z82.0) Status:Active Family history of kidney dis ease: Paternal Grandmother(V18.69, Z84.1) Status:Active Family history of squamous c ell carcinoma: Paternal Grandmother(V16.9, Z80.9) Status:Active Family history of esophageal carcinoma: Paternal Grandfather(V16.0, Z80.0) Status:Active Metastatic cancer: Paternal Grandmother Status:Active Family history of lung cance r: Paternal Grandmother(V16.1, Z80.1) Status:Active Family history of malignant neoplasm of brain: Paternal Grandmother(V16.8, Z80.8) Status:Active Unknown Family Member Name Dates Details Family history of cholangioc arcinoma: Maternal Aunt(V16.0, Z80.0) Status:Active Family history of scleroderm a: Mother, Paternal Grandmother(V19.8, Z82.69) Status:Active Family history of diabetes m ellitus: Grandfather(V18.0, Z83.3) Status:Active Family history of hypertensi on: Grandparent(V17.49, Z82.49) Status:Active Family history of myocardial infarction: Grandmother(V17.3, Z82.49) Status:Active Family history of congestive heart failure: Father(V17.49, Z82.49) Status:Active Factor 5 Leiden mutation, he terozygous: Aunt Status:Active Family history of Alzheimer' s disease: Maternal Grandmother(V17.2, Z82.0) Status:Active Family history of kidney dis ease: Paternal Grandmother(V18.69, Z84.1) Status:Active Family history of squamous c ell carcinoma: Paternal Grandmother(V16.9, Z80.9) Status:Active Family history of esophageal carcinoma: Paternal Grandfather(V16.0, Z80.0) Status:Active Metastatic cancer: Paternal Grandmother Status:Active Family history of lung cance r: Paternal Grandmother(V16.1, Z80.1) Status:Active Family history of malignant neoplasm of brain: Paternal Grandmother(V16.8, Z80.8) Status:Active Unknown Family Member Name Dates Details Family history of cholangioc arcinoma: Maternal Aunt(V16.0, Z80.0) Status:Active Family history of scleroderm a: Mother, Paternal Grandmother(V19.8, Z82.69) Status:Active Family history of congestive heart failure: Father(V17.49, Z82.49) Status:Active Factor 5 Leiden mutation, he terozygous: Aunt Status:Active Family history of Alzheimer' s disease: Maternal Grandmother(V17.2, Z82.0) Status:Active Family history of kidney dis ease: Paternal Grandmother(V18.69, Z84.1) Status:Active Family history of squamous c ell carcinoma: Paternal Grandmother(V16.9, Z80.9) Status:Active Family history of esophageal carcinoma: Paternal Grandfather(V16.0, Z80.0) Status:Active Metastatic cancer: Paternal Grandmother Status:Active Family history of lung cance r: Paternal Grandmother(V16.1, Z80.1) Status:Active Family history of malignant neoplasm of brain: Paternal Grandmother(V16.8, Z80.8) Status:Active Family history of myocardial infarction: Grandmother(V17.3, Z82.49) Status:Active Family history of hypertensi on: Grandparent(V17.49, Z82.49) Status:Active Family history of diabetes m ellitus: Grandfather(V18.0, Z83.3) Status:Active Unknown Family Member Name Dates Details Family history of cholangioc arcinoma: Maternal Aunt(V16.0, Z80.0) Status:Active Family history of scleroderm a: Mother, Paternal Grandmother(V19.8, Z82.69) Status:Active Family history of diabetes m ellitus: Grandfather(V18.0, Z83.3) Status:Active Family history of hypertensi on: Grandparent(V17.49, Z82.49) Status:Active Family history of myocardial infarction: Grandmother(V17.3, Z82.49) Status:Active Family history of congestive heart failure: Father(V17.49, Z82.49) Status:Active Factor 5 Leiden mutation, he terozygous: Aunt Status:Active Family history of Alzheimer' s disease: Maternal Grandmother(V17.2, Z82.0) Status:Active Family history of kidney dis ease: Paternal Grandmother(V18.69, Z84.1) Status:Active Family history of squamous c ell carcinoma: Paternal Grandmother(V16.9, Z80.9) Status:Active Family history of esophageal carcinoma: Paternal Grandfather(V16.0, Z80.0) Status:Active Metastatic cancer: Paternal Grandmother Status:Active Family history of lung cance r: Paternal Grandmother(V16.1, Z80.1) Status:Active Family history of malignant neoplasm of brain: Paternal Grandmother(V16.8, Z80.8) Status:Active Unknown Family Member Name Dates Details Family history of cholangioc arcinoma: Maternal Aunt(V16.0, Z80.0) Status:Active Family history of scleroderm a: Mother, Paternal Grandmother(V19.8, Z82.69) Status:Active Family history of diabetes m ellitus: Grandfather(V18.0, Z83.3) Status:Active Family history of hypertensi on: Grandparent(V17.49, Z82.49) Status:Active Family history of myocardial infarction: Grandmother(V17.3, Z82.49) Status:Active Family history of congestive heart failure: Father(V17.49, Z82.49) Status:Active Factor 5 Leiden mutation, he terozygous: Aunt Status:Active Family history of Alzheimer' s disease: Maternal Grandmother(V17.2, Z82.0) Status:Active Family history of kidney dis ease: Paternal Grandmother(V18.69, Z84.1) Status:Active Family history of squamous c ell carcinoma: Paternal Grandmother(V16.9, Z80.9) Status:Active Family history of esophageal carcinoma: Paternal Grandfather(V16.0, Z80.0) Status:Active Metastatic cancer: Paternal Grandmother Status:Active Family history of lung cance r: Paternal Grandmother(V16.1, Z80.1) Status:Active Family history of malignant neoplasm of brain: Paternal Grandmother(V16.8, Z80.8) Status:Active Unknown Family Member Name Dates Details Family history of cholangioc arcinoma: Maternal Aunt(V16.0, Z80.0) Status:Active Family history of scleroderm a: Mother, Paternal Grandmother(V19.8, Z82.69) Status:Active Family history of diabetes m ellitus: Grandfather(V18.0, Z83.3) Status:Active Family history of hypertensi on: Grandparent(V17.49, Z82.49) Status:Active Family history of myocardial infarction: Grandmother(V17.3, Z82.49) Status:Active Family history of congestive heart failure: Father(V17.49, Z82.49) Status:Active Factor 5 Leiden mutation, he terozygous: Aunt Status:Active Family history of Alzheimer' s disease: Maternal Grandmother(V17.2, Z82.0) Status:Active Family history of kidney dis ease: Paternal Grandmother(V18.69, Z84.1) Status:Active Family history of squamous c ell carcinoma: Paternal Grandmother(V16.9, Z80.9) Status:Active Family history of esophageal carcinoma: Paternal Grandfather(V16.0, Z80.0) Status:Active Metastatic cancer: Paternal Grandmother Status:Active Family history of lung cance r: Paternal Grandmother(V16.1, Z80.1) Status:Active Family history of malignant neoplasm of brain: Paternal Grandmother(V16.8, Z80.8) Status:Active Unknown Family Member Name Dates Details Family history of cholangioc arcinoma: Maternal Aunt(V16.0, Z80.0) Status:Active Family history of scleroderm a: Mother, Paternal Grandmother(V19.8, Z82.69) Status:Active Family history of diabetes m ellitus: Grandfather(V18.0, Z83.3) Status:Active Family history of hypertensi on: Grandparent(V17.49, Z82.49) Status:Active Family history of myocardial infarction: Grandmother(V17.3, Z82.49) Status:Active Family history of congestive heart failure: Father(V17.49, Z82.49) Status:Active Factor 5 Leiden mutation, he terozygous: Aunt Status:Active Family history of Alzheimer' s disease: Maternal Grandmother(V17.2, Z82.0) Status:Active Family history of kidney dis ease: Paternal Grandmother(V18.69, Z84.1) Status:Active Family history of squamous c ell carcinoma: Paternal Grandmother(V16.9, Z80.9) Status:Active Family history of esophageal carcinoma: Paternal Grandfather(V16.0, Z80.0) Status:Active Metastatic cancer: Paternal Grandmother Status:Active Family history of lung cance r: Paternal Grandmother(V16.1, Z80.1) Status:Active Family history of malignant neoplasm of brain: Paternal Grandmother(V16.8, Z80.8) Status:Active Unknown Family Member Name Dates Details Family history of cholangioc arcinoma: Maternal Aunt(V16.0, Z80.0) Status:Active Family history of scleroderm a: Mother, Paternal Grandmother(V19.8, Z82.69) Status:Active Family history of diabetes m ellitus: Grandfather(V18.0, Z83.3) Status:Active Family history of hypertensi on: Grandparent(V17.49, Z82.49) Status:Active Family history of myocardial infarction: Grandmother(V17.3, Z82.49) Status:Active Family history of congestive heart failure: Father(V17.49, Z82.49) Status:Active Factor 5 Leiden mutation, he terozygous: Aunt Status:Active Family history of Alzheimer' s disease: Maternal Grandmother(V17.2, Z82.0) Status:Active Family history of kidney dis ease: Paternal Grandmother(V18.69, Z84.1) Status:Active Family history of squamous c ell carcinoma: Paternal Grandmother(V16.9, Z80.9) Status:Active Family history of esophageal carcinoma: Paternal Grandfather(V16.0, Z80.0) Status:Active Metastatic cancer: Paternal Grandmother Status:Active Family history of lung cance r: Paternal Grandmother(V16.1, Z80.1) Status:Active Family history of malignant neoplasm of brain: Paternal Grandmother(V16.8, Z80.8) Status:Active Advance Directives No Advanced Directives Records FoundDocuments on File Type Date Recorded 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 Advance Directives and Living Will Documents on File Type Date Recorded 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 Advance Directives and Livin g Will 10/22/2019 5:34 AM Documents on File Type Date Recorded 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 Advance Directives and Livin g Will 10/22/2019 5:34 AM Documents on File Type Date Recorded 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 Advance Directives and Livin g Will 07/20/2020 5:34 AM Documents on File Type Date Recorded 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 Advance Directives and Livin g Will 07/20/2020 5:34 AM Latest Code Status on File Code Status Date Activated Date Inactivated Comments Full Code 09/25/2023 6:10 AM Question Answer Comments Plan of Care: Code Status Discussion Not Compl eted Decision Maker: Provider Rationale: Patient condition do es not warrant discussion Latest Code Status on File Code Status Date Activated Date Inactivated Comments Full Code 09/25/2023 6:10 AM Question Answer Comments Plan of Care: Code Status Discussion Not Compl eted Decision Maker: Provider Rationale: Patient condition do es not warrant discussion Latest Code Status on File Code Status Date Activated Date Inactivated Comments Full Code 09/25/2023 6:10 AM Question Answer Comments Plan of Care: Code Status Discussion Not Compl eted Decision Maker: Provider Rationale: Patient condition do es not warrant discussion Date Activated Date Inactivated Comments 09/25/2023 6:10 AM Question Answer Comments Plan of Care: Code Status Discussion Not Compl eted Decision Maker: Provider Rationale: Patient condition does not warra nt discussion Date Activated Date Inactivated Comments 09/25/2023 6:10 AM Question Answer Comments Plan of Care: Code Status Discussion Not Compl eted Decision Maker: Provider Rationale: Patient condition does not warra nt discussion Instructions Name Dates Details Instructions not documented Name Dates Details Instructions not documented Name Dates Details Instructions not documented Name Dates Details Instructions not documented Name Dates Details Instructions not documented Name Dates Details Instructions not documented History of Present Illness * Italia Mcmillan, DO - 04/29/2019 11:40 AM EDT Jennifer Dick 23 y.o. female CHIEF COMPLAINT: Headahce HISTORY OF PRESENT ILLNESS: Jennifer follows in the Neurology clinic on 04/29/2019. She is a 23-year-old woman with new onset migraine. This began suddenly on January 19 when showering she felt lightheaded, and went to the emergencyroom with a severe headache which lasted 3 days and has persisted. The headache has reduced in severity and is now a dull ache. She has had 4 migraines since her visit March 13, 2019. She has no side ef fects of Zonisamide 200 mg nightly. Evaluation thus far has been negative other than mildly elevated sedimentation rate at 38. Age at headache onset:23 Family history of headache: Duration/Location of headache: mom with migraine and scleroderma Frequency of headache:dull RINALDI daily and migraines#4 since last visit Aura: none Miss work/activities:called off work with a migraine March 22, April 09 & and April 23 Triggers: Nausea/Vomiting/Photo/Sono:+/+/+/ Neuro symptoms associated: rare tingling in arms- better OTC medication frequency: Naproxen daily Prescribed preventive meds:Zonegran 200 mg Prescribed abortive meds: Naratriptan 2.5 mg headache goes away /came back next day . Evaluation(scans): MRI normal, C spine normal, MRA normal Laboratory investigations:sed rate 38 REVIEW OF SYSTEMS: Sleep: sleeps with Amitriptyline 8-10 hours Caffeine:none Head trauma:none Water consumption: a lot Missed meals: Exercise: Depression:none ALLERGIES: Allergies Allergen Reactions Penicillins PAST MEDICAL HISTORY: No past medical history on file. SOCIAL HISTORY: Social History Socioeconomic History Marital status: Single Spouse name: Not on file Number of children: Not on file Years of education: Not on file Highest education level: Not on file Occupational History Not on file Social Needs Financial resource strain: Not on file Food insecurity: Worry: Not on file Inability: Not on file Transportation needs: Medical: Not on file Non-medical: Not on file Tobacco Use Smoking status: Not on file Substance and Sexual Activity Alcohol use: Not on file Drug use: Not on file Sexual activity: Not on file Lifestyle Physical activity: Days per week: Not on file Minutes per session: Not on file Stress: Not on file Relationships Social connections: Talks on phone: Not on file Gets together: Not on file Attends pentecostalism service: Not on file Active member of club or organization: Not on file Attends meetings of clubs or organizations: Not on file Relationship status: Not on file Intimate partner violence: Fear of current or ex partner: Not on file Emotionally abused: Not on file Physically abused: Not on file Forced sexual activity: Not on file Other Topics Concern Not on file Social History Narrative Not on file OCCUPATIONAL HISTORY: OUTPATIENT MEDICATIONS PRIOR TO VISIT: Current Outpatient Medications: acetaminophen 120 MG Suppository, Insert 120 mg rectally every 4 hours as needed., Disp: , Rfl: amitriptyline 75 MG Tab, Take 75 mg by mouth At bedtime., Disp: , Rfl: DESOGESTREL-ETHINYL ESTRADIOL PO, Take 3 mg by mouth., Disp: , Rfl: naproxen sodium (ANAPROX DS) 550 MG Tab, 1 po q 12 hours prn headache, Disp: 20 tablet, Rfl: 4 naratriptan (AMERGE) 2.5 MG Tab, 1 po prn headache max 5mg/day; may repeat in 4 hr x1, Disp: 8 tablet, Rfl: [address] capsule, Take 40 mg by mouth daily., Disp: , Rfl: zonisamide 100 MG Cap, 2 or 3 at bed, Disp: 100 capsule, Rfl: 4 predniSONE 20 MG Tab tablet, 3 x 2 days 2 x 2 days 1 x 2 days 1/2 x 2 days then 1/2 po q o d x 2 days (Patient not taking: Reported on 04/29/2019), Disp: 14 tablet, Rfl: 0 SUMAtriptan Succinate (IMITREX STATDOSE SYSTEM) 4 MG/0.5ML Solution Auto- injector, 1 sub q dose prnheadache, may repeat in 2 hours; no more than 2 a day, Disp: 3 mL, Rfl: 3 PHYSICAL EXAM: Blood pressure 100/55, pulse 82, temperature 97.2 F (36.2 C), resp. rate 16, height 1.626 m (5' 4), weight 82.1 kg (181 lb), SpO2 100 %. Body mass index is 31.07 kg/m . Disc margins are sharp and flat with spontaneous venous pulsations. Neck second muscles are full. Heart regular rate rhythm without murmur or ectopy. Lungs clear to auscultation without rales or rhonchi. Gait and station normal. No evidence of distal clubbing cyanosis or edema. ASSESSMENT/IMPRESSION: Problem List Items Addressed This Visit Cardiovascular Intractable migraine without aura and without status migrainosus Nervous NDPH (new daily persistent headache) - Primary PLAN: There is no evidence of benign intracranial hypertension on exam today. Increase Zonisamide 300 mg at bedtime Discuss with family physician regarding change in oral contraceptive (consider decrease Estrogen /or Progesterone only) Naratriptan 2.5 mg for moderate headache Sumatriptan stat dose for refractory or morning headache Sedimentation rate -pending Magnesium 500 mg at bedtime Riboflavin 100 mg 2 times daily Amitriptyline 50 mg 1 month, then 25 mg at at bedtime- to aid in weight loss. Follow-up 4 months, call sooner if problems Dictation per Addie Mcmillan DO documented in this encounter* Aida Kaur, ISAIAH - 08/27/2019 4:58 PM EST [facility] [address] [facility] [address] [facility] [id number] Chief Complaint Patient presents with Left Knee - Pain Jennifer Dick returns to the office today for left knee pain and discussion of a Natasha osteotomy. She was last seen by Dr. Grove on 02/24/2018 after she had completed shots and physicaltherapy. She had a lateral release by Dr. Grove as well for patellar mal-tracking. As of recently, she hasn't been wearing any type of brace, she states that no brace works for her. She hasn't been taking Tylenol because she states that her LFTs were elevated on her blood work. She doesn't take ibuprofen because she states that she gets stomach ulcers and it bothers her IBS. 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 She is here today with her mother and states that she would just like to move forward with the surgery. The patient's past medical history, surgical history, social history, family history, medications and allergies were reviewed with the patient today and are available in the chart for further review. ROS: Review of Systems Constitutional: Negative for activity change and fatigue. HENT: Negative for congestion, hearing loss and trouble swallowing. Eyes: Negative for visual disturbance. Respiratory: Negative for chest tightness and shortness of breath. Cardiovascular: Negative for chest pain and palpitations. Gastrointestinal: Negative for abdominal pain, diarrhea, nausea and vomiting. Endocrine: Negative for polydipsia, polyphagia and polyuria. Genitourinary: Negative for decreased urine volume, difficulty urinating and hematuria. Musculoskeletal: Positive for arthralgias. Negative for joint swelling and myalgias. Skin: Negative for color change, rash and wound. Allergic/Immunologic: Negative for immunocompromised state. Neurological: Negative for dizziness, weakness, light-headedness and numbness. Hematological: Does not bruise/bleed easily. Psychiatric/Behavioral: Negative for confusion and sleep disturbance. The patient is not nervous/anxious. PE: Physical Exam Constitutional: She is oriented to person, place, and time. She appears well- developed and well-nourished. HENT: Head: Normocephalic. Eyes: Pupils are equal, round, and reactive to light. Neck: Normal range of motion. Neck supple. Cardiovascular: Normal rate and regular rhythm. Pulmonary/Chest: Effort normal and breath sounds normal. Abdominal: Soft. Bowel sounds are normal. Musculoskeletal: Normal range of motion. Left knee: She exhibits no effusion. Neurological: She is alert and oriented to person, place, and time. Skin: Skin is warm and dry. ORTHO: Left Knee Exam Tenderness The patient is experiencing tenderness in the patella. Range of Motion The patient has normal left knee ROM. Tests Antonio: Medial - negative Lateral - negative Varus: negative Valgus: negative Evelyn: Anterior - negative Drawer: Anterior - negative Posterior - negative Other Erythema: absent Scars: absent Sensation: normal Pulse: present Swelling: none Effusion: no effusion present Imaging: L Knee The images of the left knee demonstrate no fracture, dislocation, joint effusion orjoint space narrowing. Assessment/Plan: After examination and reviewing of the patient's x-ray images, we discussed continued conservative treatment options as well as surgical options. The patient and her mother both voiced no success with conservative treatment and would like to move forward with the Natasha osteotomy that they had discussed with Dr. Grove. I did offer the patient another cortisone injection today for some pain relief but she politely declined stating that it didn't help in the past and she didn't think it would help at this time. She states that she would just rather suck it up than take anything else that could cause other issues. I informed the patient and her mother that we would get her scheduled for her surgery and that she would have a pre-op appt with Dr. Grove prior to the surgery. They are to call if they have any further questions or concerns. The patient and her mother verbalized understanding and are in agreement with the treatment plan. documented in this encounter* Kitty Ni RN - 10/22/2019 12:11 PM EST Up To bathroom Ambulated with immobilizer on Nausea persists when up To cart To try to alleviate nausea * Kitty Ni RN - 10/22/2019 10:10 AM EST Immobilizer cntinues toleg Pulse readily palpable * Kitty Ni RN - 10/22/2019 9:59 AM EST Complains of nausea IV fluid infusing right hand area Flushed freely Parents at bedside Will give fluid then determine need forfurther medication documented in this encounter* Ernie Grove MD - 11/09/2019 12:07 PM EST She comes in today 2 weeks status post left knee arthroscopy, lateral release, with a Natasha osteotomy, doing well. Wound is healed. No signs of infection. No DVT signs or symptoms. Calves soft. At this time extensor mechanism is intact. IMPRESSION Two weeks status post left knee Natasha osteotomy. PLAN I will have her do local wound care and physical therapy she has requested based on her mom's insurance. Her mom works at [facility] [employer] [employer]. They would like to do physical therapy. Theywill honor that due to insurance. I will see them back in 4 weeks for x-rays. Will continue local wound care and aspirin protocol. documented in this encounter* Ernie Grove MD - 12/07/2019 5:02 PM EST Dictation on: 12/07/2019 5:04 PM by: ERNIE GROVE [[id number]] documented in this encounter* Ernie Grove MD - 01/18/2020 2:50 PM EDT Dictation on: 01/18/2020 2:51 PM by: ERNIE GROVE [[id number]] documented in this encounter* Ernie Grove MD - 08/06/2020 9:55 AM EDT Dictation on: 08/06/2020 9:56 AM by: ERNIE GROVE [[id number]] documented in this encounter* Ernie Grove MD - 09/10/2020 5:53 PM EST Dictation on: 09/10/2020 5:54 PM by: ERNIE GROVE [[id number]] documented in this encounter* Italia Mcmillan DO - 03/13/2019 10:20 AM EDT Jennifer Dick 23 y.o. female CHIEF COMPLAINT: Headache HISTORY OF PRESENT ILLNESS: Jennifer was evaluated in the Neurology clinic on 03/13/2019 thank you for your referral on this pleasant 23-year-old right-handed woman with a rather new onset headache. On January 19 she was showering when she felt lightheaded as if she would pass out. She went to the emergency room and had a very severe headache following this lasting 3 days which in fact has persisted .She has not had migraines previously, and this headache is more dull headache but occasionally builds to be a severe headache andshvianca also has episodes of ice pick type pain bilaterally. Previous history of headache:no History of headache in youth:none Family history of headache:mom with migraine/scleroderma Duration of headache: present all day now -dull when wakes and builds Location of headache:sharp pain either side of head Frequency of headache:daily since January 19 throbs /and 1-2 times a day gets a stabbing pain Aura: none Prodrome: Miss work/activities: missed work first week Triggers: lights/sounds Nausea/Vomitting:-/- Neuro symptoms associated:if stands -legs and arms get parasthesic Neck pain and stiffness OTC medication frequency: Tylenol/Toradol Prescribed preventive meds: Amitriptyline 75 mg Prescribed abortive meds: fioricet Side effects:none Evaluation(scans): MRI without zac seems normal Laboratory investigations: lab thru ER was normal PMHx: IBS PSHx: left knee lateral release Medications: Amitriptyline 75 mg since January -dull /helps neck pain , combined OC x 3 years/ Allergies : PCN Social: no smoke/etoh/not /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 SOCIAL HISTORY: Social History Socioeconomic History Marital status: Single Spouse name: Not on file Number of children: Not on file Years of education: Not on file Highest education level: Not on file Occupational History Not on file Social Needs Financial resource strain: Not on file Food insecurity: Worry: Not on file Inability: Not on file Transportation needs: Medical: Not on file Non-medical: Not on file Tobacco Use Smoking status: Not on file Substance and Sexual Activity Alcohol use: Not on file Drug use: Not on file Sexual activity: Not on file Lifestyle Physical activity: Days per week: Not on file Minutes per session: Not on file Stress: Not on file Relationships Social connections: Talks on phone: Not on file Gets together: Not on file Attends pentecostalism service: Not on file Active member of club or organization: Not on file Attends meetings of clubs or organizations: Not on file Relationship status: Not on file Intimate partner violence: Fear of current or ex partner: Not on file Emotionally abused: Not on file Physically abused: Not on file Forced sexual activity: Not on file Other Topics Concern Not on file Social History Narrative Not on file OCCUPATIONAL HISTORY: OUTPATIENT MEDICATIONS PRIOR TO VISIT: Current Outpatient Medications: acetaminophen 120 MG Suppository, Insert 120 mg rectally every 4 hours as needed., Disp: , Rfl: amitriptyline 75 MG Tab, Take 75 mg by mouth At bedtime., Disp: , Rfl: DESOGESTREL-ETHINYL ESTRADIOL PO, Take 3 mg by mouth., Disp: , Rfl: ketorolac 5 MG Tab, Take 10 mg by mouth every 4 hours as needed. Max of 40mg/day. Max of 5 days., Disp: , Rfl: omeprazole [address] capsule, Take 40 mg by mouth daily., Disp: , Rfl: naproxen sodium (ANAPROX DS) 550 MG Tab, 1 po q 12 hours prn headache, Disp: 20 tablet, Rfl: 3 naratriptan (AMERGE) 2.5 MG Tab, 1 po prn headache max 5mg/day; may repeat in 4 hr x1, Disp: 8 tablet, Rfl: 3 predniSONE 20 MG Tab tablet, 3 x 2 days 2 x 2 days 1 x 2 days 1/2 x 2 days then 1/2 po q o d x 2 days, Disp: 14 tablet, Rfl: 0 zonisamide 100 MG Cap, 1 po q pm for 2 weeks then 2 po q pm if no sE, Disp: 60 capsule, Rfl: 4 PHYSICAL EXAM: Blood pressure 114/56, pulse 90, temperature 97.7 F (36.5 C), resp. rate 16, height 1.626 m (5' 4), weight 82.1 kg (181 lb), SpO2 100 %. Body mass index is 31.07 kg/m . Speech is fluent without dysarthria or dysphasia. Pupils are round reactive to light and accommodation. Extraocular muscles are full. Disc margins are sharp and flat. There is no facial asymmetry. Palate elevates symmetrically. She has minimal spasm in the trapezius muscles. No nuchal rigidity. Shedoes have some tenderness in the occipital region bilaterally. Heart regular rate rhythm without murmur or ectopy. Lungs clear to auscultation without rales or rhonchi. Gait and station normal. No evidence of distal clubbing cyanosis or edema. Romberg testing negative. Deep tendon reflexes symmetric. ASSESSMENT/IMPRESSION: Problem List Items Addressed This Visit Nervous NDPH (new daily persistent headache) Other Visit Diagnoses Muscle weakness (generalized) - Primary Relevant Orders MRI SPINE CERVICAL WITHOUT CONTRAST EMG & NERVE CONDUCTION Numbness and tingling in both hands Relevant Orders MRI SPINE CERVICAL WITHOUT CONTRAST Worst headache of life Relevant Orders MRI ARTERIOGRAM BRAIN WITHOUT CONTRAST SEDIMENTATION RATE, AUTOMATED Bilateral occipital neuralgia Relevant Orders AMB REFERRAL TO PHYSICAL THERAPY PLAN: Jennifer's headaches are not typical for migraine, and I would recommend further investigations to include MRA given the sudden onset and persistence of her headache. Because she is experiencing weakness in her fingertips with paresthesia as well as weakness upon standing recommend cervical spine MRI Institution Magnesium and Riboflavin for headache prevention Institution of Zonisamide 100 mg at at bedtime to increase gradually, and maintain Amitriptyline 75mg currently Prednisone 60 mg to taper Naratriptan 2.5 mg for refractory headache Physical therapy for occipital pain (post cervical MRI) Walk 30 minutes per day Continue to drink 80 ounces of water daily Consider brain MRI scan with gadolinium if above negative Laboratory investigations should include sedimentation rate and vitamin D, AMIE and thyroid profile Discussion was made that contraceptives may cause headaches, despite the fact that she has been on the same one for 3 years, and that Progesterone only or lower estrogen preparations could help. Follow-up 6 weeks Dictation per Addie Mcmillan DO documented in this encounter Discharge Instructions * Instructions* Mary Feng RN - 10/22/2019 GENERAL POST-OPERATIVE PATIENT INSTRUCTIONS ANESTHESIA PRECAUTIONS: A responsible adult must stay with you for at least 24 hours after surgery. You may feel light headed,, dizzy, or nauseated during this time. Do not operate a vehicle (car, bike, motorcycle, cryptologic technician) machinery or power tools. Do not make any important decisions or drink any alcoholic beverages for 24 hours. Children should remain quiet today. No riding of bicycles, motorcycles, skateboards, playing on swings etc. Drink plenty of fluids today. Eat light, small, frequent meals today. Resume regular diet tomorrow. FOLLOW-UP: Please make an appointment with your physician for follow-up. Call your physician immediately if you have any fevers greater than 101, drainage from your wound that is not clear or looks infected, persistent bleeding, increasing abdominal pain, problems urinating, or persistent nausea/vomiting. DIET: You may eat any foods that you can tolerate. It is a good idea to eat a high fiber diet and take in plenty of fluids to prevent constipation. If you do become constipated you may want to take amild laxative or take ducolax tablets on a daily basis until your bowel habits are regular. Constipation can be very uncomfortable, along with straining, after recent surgery. ACTIVITY: You are encouraged to cough and deep breathe or use your incentive spirometer if you weregiven one, every 15-30 minutes when awake. This will help prevent respiratory complications and lowgrade fevers post-operatively if you had a general anesthetic. You are encouraged to walk and engage in light activity for the next two weeks. MEDICATIONS: Try to take narcotic medications and anti-inflammatory medications, such as ibuprofen,naprosyn, etc., with food. This will minimize stomach upset from the medication. Should you developnausea and vomiting from the pain medication, or develop a rash, please discontinue the medication and contact your physician. You should not drive, make important decisions, or operate machinery when taking narcotic pain medication. Do not take tylenol or tylenol products with narcotic medications. QUESTIONS: Please feel free to call your physician or the hospital chemical plant operator if you have any questions, and they will be glad to assist you. documented in this encounter* Instructions* Susan Judge RN - 07/20/2020 GENERAL POST-OPERATIVE PATIENT INSTRUCTIONS ANESTHESIA PRECAUTIONS: A responsible adult must stay with you for at least 24 hours after surgery. You may feel light headed,, dizzy, or nauseated during this time. Do not operate a vehicle (car, bike, motorcycle, cryptologic technician) machinery or power tools. Do not make any important decisions or drink any alcoholic beverages for 24 hours. Children should remain quiet today. No riding of bicycles, motorcycles, skateboards, playing on swings etc. Drink plenty of fluids today. Eat light, small, frequent meals today. Resume regular diet tomorrow. FOLLOW-UP: Please make an appointment with your physician for follow-up. Call your physician immediately if you have any fevers greater than 101, drainage from your wound that is not clear or looks infected, persistent bleeding, increasing abdominal pain, problems urinating, or persistent nausea/vomiting. DIET: You may eat any foods that you can tolerate. It is a good idea to eat a high fiber diet and take in plenty of fluids to prevent constipation. If you do become constipated you may want to take amild laxative or take ducolax tablets on a daily basis until your bowel habits are regular. Constipation can be very uncomfortable, along with straining, after recent surgery. ACTIVITY: You are encouraged to cough and deep breathe or use your incentive spirometer if you weregiven one, every 15-30 minutes when awake. This will help prevent respiratory complications and lowgrade fevers post-operatively if you had a general anesthetic. You are encouraged to walk and engage in light activity for the next two weeks. MEDICATIONS: Try to take narcotic medications and anti-inflammatory medications, such as ibuprofen,naprosyn, etc., with food. This will minimize stomach upset from the medication. Should you developnausea and vomiting from the pain medication, or develop a rash, please discontinue the medication and contact your physician. You should not drive, make important decisions, or operate machinery when taking narcotic pain medication. Do not take tylenol or tylenol products with narcotic medications. QUESTIONS: Please feel free to call your physician or the hospital chemical plant operator if you have any questions, and they will be glad to assist you. Discharge instructions reviewed with patient and family/friend, all questions answered, verbalized understanding.Including but not limited to signs and symptoms of infection; fever over 100, redness at the incision site, foul smelling drainage around the incisional site, and increased, unrelenting Pain. Call 911 instructions also reviewed and highlighted on instruction sheet. Patient states that they have the means to obtain supplies to care for self at home. documented in this encounter Reason for Referral Status Reason Specialty Diagnoses / Procedures Referred By Contact Referred To Contact New Request Physical Therapy Diagnoses Bilateral occipital neuralgia Italia Mcmillan, DO [address] [id number] Scheduling Instructions . Status Reason Specialty Diagnoses / Procedures Referred By Contact Referred To Contact New Request Diagnoses Muscle weakness (generalized) Procedures EMG & NERVE CONDUCTION Italia Mcmillan, DO [address] [place] [address] Status Reason Specialty Diagnoses / Procedures Referred By Contact Referred To Contact New Request Diagnoses Worst headache of life Procedures MRI ARTERIOGRAM BRAIN WITHOUT CONTRAST ID MR ANGIO, HEAD Italia Mcmillan, DO [address] [id number] Status Reason Specialty Diagnoses / Procedures Referred By Contact Referred To Contact New Request Diagnoses Muscle weakness (generalized) Numbness and tingling in both hands Procedures MRI SPINE CERVICAL WITHOUT CONTRAST ID MRI, CERV SPINE Italia Mcmillan, DO [address] [place] [address] Specialty Diagnoses / Procedures Referred By Contac t Referred To Contact Radiology Diagnoses RUQ abdominal pain Epigastric pain Nausea Procedures US abdomen complete US abdomen Gus Bradley PA-C [address] [place] [address] Referral ID Status Reason Start Date Expiration Date Visits Requested Visits Authorized [id number] Authorized Perform Procedure 08/08/2023 08/07/2024 1 1 Specialty Diagnoses / Procedures Referred By Contac t Referred To Contact Radiology Diagnoses RUQ abdominal pain Procedures NM hepatobiliary w cholecystokinin Evelyn Busch, DO [address] [place] [address] Referral ID Status Reason Start Date Expiration Date Visits Requested Visits Authorized [id number] Pending Review Perform Procedure 3 07/23/2024 3 3 Specialty Diagnoses / Procedures Referred By Contac t Referred To Contact Diagnoses Post-operative pain Evelyn Del Rio MD [address] [facility], [place] [address] Referral ID Status Reason Start Date Expiration Date V isits Requested Visits Authorized [id number] Pending Review 1 1 Specialty Diagnoses / Procedures Referred By Contac t Referred To Contact Radiology Diagnoses Left foot pain Procedures XR foot left 3+ views Evelyn Busch [address] [place] [address] Referral ID Status Reason Start Date Expiration Date Visits Requested Visits Authorized [id number] Authorized Perform Procedure 12/16/2023 12/15/2024 1 1 Specialty Diagnoses / Procedures Referred By Contac t Referred To Contact Radiology Diagnoses Arthralgia, unspecified joint Procedures XR pelvis 3+ [place] [address] Department [place] [address] Referral ID Status Reason Start Date Expiration Date Visits Requested Visits Authorized [id number] Authorized Perform Procedure 03/10/2024 03/10/2025 1 1 Chief Complaint * 25 y/o female presents for 3 month f/u * Denies needing medication RF'S * Pt reports recurring migraines even on medications * Pt reports other than migraines everything has been okay * Pt does states she is getting 02/2022 * 25 y/o female presents for 3 month f/u * Denies needing medication RF'S * Pt reports recurring migraines even on medications * Pt reports other than migraines everything has been okay * Pt does states she is getting 02/2022 Headaches* 26 y/o female presents for 4 month f/u * Medications verified and proposed * Denies new complaints, just reports a lot of family stress/issues Headaches* 26 y/o female presents for sick visit * Per [facility] message: * Pt reports 05/13 when she was getting ready for work she got light headed and shaky * She ended up sitting down until it passed, but noticed her HR would increase from 70 to 121 after taking a few steps * 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 * She had to step out and someone else took over with that patient * She did try sipping on some apple juice but it did not seem to help * 26 y/o female presents for sick visit * Per [facility] message: * Pt reports 05/13 when she was getting ready for work she got light headed and shaky * She ended up sitting down until it passed, but noticed her HR would increase from 70 to 121 after taking a few steps * 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 PT HAS BEEN ON THE DEPO FOR TWO YEARS AND WOULDLIKE TO CONTINUE WITH THE DEPO. PT HAS NO OTHER CONCERNS. LMP DEPO* Patient is here for Depo Inj. * Patient Supply * [facility]: [id number] * Lot# [id number] * Exp: 10/06/2025 * Site: Right Deltoid * Depo Provera 150mg/mL IM * Return Date: 09/17/2022 palpitationsHeadachesHeadaches* Patient here for depo injection * PATIENT supply * [facility]: [id number] * LOT# [id number] * EXP:06/06/2026 * SITE: LEFT DELTOID * Depo Provera 150mg/mL IM * Return Date: 12/10/22 * 27 y/o female presents for ED f/u/ low potassium * Medications proposed * Pt was in the end at the end of September for abdominal pain * Pt was given a week supply of potassium until she could get into her PCP * Pt is still having sharp pain in her RT lower quadrant along with bloating/nausea * 27 y/o female presents for ED f/u/ low potassium * Medications proposed * Pt was in the end at the end of September for abdominal pain * Pt was given a week supply of potassium until she could get into her PCP * Pt is still having sharp pain in her RT lower quadrant along with bloating/nausea PT HERE TODAY WANTING TO SWITCH BC. PT STATES SHE HAS BEEN ON THE DEPO FOR TWO YEARS, AND SHE WOULDLIKE TO GET BACK ON THE PILL.HeadachesHeadaches Additional Source Comments INFORMATION SOURCE (unrecogn ized section and content) DATE CREATED AUTHOR 12/26/2018 [facility] DATE CREATED AUTHOR AUTHOR'S ORGANIZ ATION 07/11/2019 formerly [facility] DATE CREATED AUTHOR AUTHOR'S ORGANIZ ATION 09/26/2019 [facility] DATE CREATED AUTHOR AUTHOR'S ORGANIZ ATION 07/19/2020 [facility] DATE CREATED AUTHOR AUTHOR'S ORGANIZ ATION 02/16/2021 [facility] DATE CREATED AUTHOR AUTHOR'S ORGANIZ ATION 10/31/2022 formerly [facility] DATE CREATED AUTHOR AUTHOR'S ORGANIZ ATION 05/14/2023 [facility] DATE CREATED AUTHOR AUTHOR'S ORGANIZ ATION 07/12/2023 [facility] DATE CREATED AUTHOR AUTHOR'S ORGANIZ ATION 07/12/2023 [employer] [facility] DATE CREATED AUTHOR AUTHOR'S ORGANIZ ATION 01/23/2024 [facility] DATE CREATED AUTHOR AUTHOR'S ORGANIZ ATION 10/28/2024 [facility] DATE CREATED AUTHOR AUTHOR'S ORGANIZ ATION 12/24/2024 [facility] DATE CREATED AUTHOR AUTHOR'S ORGANIZ ATION 01/14/2025 [facility] DATE CREATED AUTHOR AUTHOR'S ORGANIZ ATION 03/30/2025 [facility] DATE CREATED AUTHOR AUTHOR'S ORGANIZ ATION 07/10/2025 [facility] DATE CREATED AUTHOR AUTHOR'S ORGANIZ ATION 08/07/2025 [facility] DATE CREATED AUTHOR AUTHOR'S ORGANIZ ATION 08/08/2025 [facility] Reason for Visit (unrecogniz ed section and content) Reason Comments Follow-up Headache Reason Comments Pain Status Reason Specialty Diagnoses / Procedures Referre d By Contact Referred To Contact Diagnoses Patellofemoral pain syndrome of left knee Patellofemoral pain syndrome of left knee [M22.2X2] Procedures ID REPAIR ANTER TIBIAL TUBERCLE Left knee natasha osteotomy [[id number]] Ernie Grove MD [address] [place], [place] [id number] Reason Comments Follow-up Suture / Staple Removal Reason Comments Follow-up Status Reason Specialty Diagnoses / Procedures Referre d By Contact Referred To Contact Diagnoses Patellofemoral pain syndrome of left knee Patellofemoral pain syndrome of left knee [M22.2X2] Procedures ID KNEE SCOPE,PART SYNOVECT Ernie Grove MD [address] [place] [id number] Reason Comments Follow-up Suture / Staple Removal Wound Check Reason Comments New Patient Headache Reason Comments Abdominal Pain Constant RUQ pain x 2 weeks with nausea, increased with deep breaths and after meals. Specialty Diagnoses / Procedures Referred By Yusuf marin Referred To Contact Radiology Diagnoses RUQ abdominal pain Epigastric pain Nausea Procedures US abdomen complete US abdomen Gus Bradley, RO [address] [facility] [place] [address] Referral ID Status Reason Start Date Expiration Date Visits Requested Visits Authorized [id number] Authorized Perform Procedure 08/08/2023 08/07/2024 1 1 Specialty Diagnoses / Procedures Referred By Contac t Referred To Contact Radiology Diagnoses RUQ abdominal pain Procedures NM hepatobiliary w cholecystokinin Evelyn Busch, DO [address] [place] [address] Referral ID Status Reason Start Date Expiration Date Visits Requested Visits Authorized [id number] Pending Review Perform Procedure 3 07/23/2024 3 3 Specialty Diagnoses / Procedures Referred By Contac t Referred To Contact Diagnoses Biliary dyskinesia Biliary dyskinesia [K82.8] Procedures ID LAPAROSCOPY SURG CHOLECYSTECTOMY Cholecystectomy Laparoscopy Evelyn Del Rio MD [address] [facility], [facility] [address] [place] [address] [id number] Referral ID Status Reason Start Date Expiration Date Visits Re quested Visits Authorized [id number] 1 1 Reason Comments Rash Patient having skin irritation under breast and abdomen area around the incision sites x 4 days ago with itching. Hx of cholecystectomy x [address] Del Rio. Specialty Diagnoses / Procedures Referred By Contac t Referred To Contact Radiology Diagnoses Left foot pain Procedures XR foot left 3+ views Evelyn Busch, [address] [place] [address] Referral ID Status Reason Start Date Expiration Date Visits Requested Visits Authorized [id number] Authorized Perform Procedure 12/16/2023 12/15/2024 1 1 Reason Comments Sore Throat Pt concerned for str ep. Reason Comments New Patient Visit New patient. C/O brittnee n in both knees, R shoulder and R hip. Specialty Diagnoses / Procedures Referred By Contac t Referred To Contact Rheumatology Diagnoses Arthralgia, unspecified joint Tammy Simeon, SCRIPT GIRL-NAILER OPERATOR [address] [facility], [facility], [facility] [address] [place] [address] Referral ID Status Reason Start Date Expiration Date Visits Requested Visits Authorized [id number] Authorized Specialty Services Required 01/09/2024 01/08/2025 1 1 Specialty Diagnoses / Procedures Referred By Contac t Referred To Contact Radiology Diagnoses Arthralgia, unspecified joint Procedures XR pelvis 1-2 views XR pelvis 3+ [place] [address] [facility] Department of Medicine-Rheumatology [place] [id number] Referral ID Status Reason Start Date Expiration Date Visits Requested Visits Authorized [id number] Pending Review Perform Procedure 03/10/2024 03/10/2025 1 1 Reason Comments Follow-up 3 MO FU Reason Comments Migraine Postural Orthostatic Tachycardia Syndrom e (Pots) Reason Comments Well Woman Reason Comments Re-establish Care Following Dr. Adamson user from Obesity Patient would like t o talk about weight loss options Reason Onset Date Comments Care 03/03/2025 Reason Comments US Specialty Diagnoses / Procedures Referred By Contac t Referred To Contact [facility] Diagnoses with uncertain dates, antepartum (HCC) Procedures OBSTETRIC ULTRASOUND WHI US PREG UTERUS AFTER 1ST TRIMEST GESTATION Lorraine Roldan APRN.DIONE [address] [place], [place] [id number] Phone: tel: fax: [facility] [address] [place] [address] Referral ID Status Reason Start Date Expiration Date V isits Requested Visits Authorized [id number] Closed Auto-Generate d Referral 01/29/2025 01/29/2026 1 1 Reason Comments Headache Pt states migraine x 2 days. I can't take my normal medicine because I'm (16 weeks) . States this headache feels different it's positional Reason Comments US Specialty Diagnoses / Procedures Referred By Contac t Referred To Contact FORMER[facility] NAMED [facility] Diagnoses with uncertain dates, antepartum (HCC) Procedures OBSTETRIC ULTRASOUND WHI US PREG UTERUS AFTER 1ST TRIMEST GESTATION Lorraine Roldan APRN.CNM [address] [place] [address] Phone: tel: fax: [facility] [address] [place] [address] Referral ID Status Reason Start Date Expiration Date V isits Requested Visits Authorized [id number] Closed Auto-Generate d Referral 01/29/2025 01/29/2026 1 1 Reason Onset Date Comments Care 04/16/2025 Reason Comments Consult Reason Onset Date Comments Care 06/11/2025 Reason Comments Gestational Diabetes Ernie Grove MD - 10/22/2019 6:45 AM Ernie Gaytan MD - 10/12/2019 5:39 PM Ernie Gaytan MD - 07/20/2020 10:10 AM EDT H&P Notes (unrecognized sect ion and content) INTERVAL HISTORY AND PHYSICAL Patient Name: Jennifer Dick Admit Date: MR #: [id number] : 1995 The H&P has been reviewed and the patient has been examined. I concur with the findings of the H&P. There are no significant changes. It is appropriate to proceed with the planned procedure. Ernie Grove MD 10/22/2019 6:45 AM She comes today for preoperative consultation regarding her left knee patellofemoral pain. 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 The patient went on and did pills, shots, and physical therapy and bracing with no significant relief. She presents now for knee arthroscopy lateral release, and Natasha osteotomy. ALLERGIES To penicillin. MEDICATIONS control, Neurontin, Singulair, Prilosec, Imitrex, Topamax, Zonegran. ILLNESSES Include a history of migraine headaches, neuropathy. SURGERIES She has had left knee arthroscopy lateral release. REVIEW OF SYSTEMS Knee pain, joint pain, arthralgias. SOCIAL HISTORY She does not smoke, does not drink. FAMILY HISTORY Positive for cancer and heart attack. IMAGING X-ray of the left knee, 4 views, reveals mild patellar tilting. Otherwise, no abnormalities. PHYSICAL EXAM General: She is awake, alert, oriented x3. Ambulates without assistive device. Extremities: She has previous surgical arthroscopy portals that are well healed. No signs of infection. No DVT signs or symptoms. Calves soft. She has 5 degrees of hyperextension. She has full flexion. Negative anterior and posterior drawer. Negative Evelyn. Patellofemoral crepitus, Q-angle of 19 degrees. She has 2 quadrants of medial excursion. She has femoral internal rotation. Negative Antonio. IMPRESSION Left knee patellofemoral pain. PLAN We will proceed with left knee arthroscopy, Naatsha osteotomy, repeat lateral release. All risks, complications were discussed. I have discussed all the treatment options with the patient. The patient was part of the entire decision-making process. I have performed a narcotics review. Last listed medication was gabapentin on 08/28/2019. documented in this encounter INTERVAL HISTORY AND PHYSICAL Patient Name: Jennifer Dick Admit Date: MR #: [id number] : 1995 The H&P has been reviewed and the patient has been examined. I concur with the findings of the H&P. There are no significant changes. It is appropriate to proceed with the planned procedure. Ernie Grove MD 07/20/2020 10:10 AM H&P unchanged from dictated 05/27/2020 H&P. documented in this encounter Op Note - Ernie Grove MD - 10/22/2019 8:18 AM ESTBrief Op Note - Ernie Grove MD - 10/22/2019 8:18 AM ESTOp Note - Ernie Grove MD - 07/20/2020 12:06 PM EDT Miscellaneous Notes (unrecog nized section and content) REPORT NOTE PREOPERATIVE DIAGNOSES 1.Left knee patellofemoral pain. 2.Status post left knee arthroscopy and lateral release. POSTOP DIAGNOSES 1.Left knee patellofemoral pain. 2.Status post left knee arthroscopy and lateral release. PROCEDURES 1.Diagnostic left knee arthroscopy. 2.Natasha osteotomy, left tibial tubercle. ANESTHESIA General anesthetic. COMPLICATIONS No intraoperative complications. ESTIMATED BLOOD LOSS 5 cc. SPECIMENS None. HISTORY Jennifer is a patient who in 2013 (6 years ago) had a knee arthroscopy and lateral release. Did well for about 4 years. Then the last 4 years she has had progressive pain, discomfort, swelling at the end of the day with discomfort and difficulty making it through her shift. Despite pills, shots, physical therapy and bracing, she has continued to have pain and discomfort, and at this time, she presents for Natasha osteotomy. She is explained all the risks complications of surgery including, but not limited to the risk of infection, bleeding, neurologic or vascular injury, possibility of deep venous thrombosis, pulmonary embolism, myocardial infarction, stroke, or even with surgery. Explained the possibilities of continued pain, stiffness, loss of range of motion, as well as the need for future surgery, explained to her that there is absolutely no guarantee whatsoever of resolution of her symptoms after the surgical intervention. The patient and the patient's mother did understand that and at this point in time, she understood the are understands the postoperative rehabilitation process. She also understands the risks and complications of the surgery and is willing to accept the possibility that there may not be complete resolution of her symptoms after the surgical intervention. PROCEDURE IN DETAIL The patient met in the preoperative holding area where the left knee was confirmed to be the appropriate site and marked by myself. Patient was taken to the operative suite given preoperative Kefzol per protocol, as well as a general anesthetic. Left leg was then placed in proximal thigh tourniquet. The left lower extremity was then sterilely prepped and draped using ChloraPrep solution as well as InteguSeal. After sterilization of left leg, we did our final time-out to confirm that the left leg was in fact the appropriate site that had been marked by myself. At this time, we then went ahead and proceeded forward with elevation of the left leg tourniquet. After the elevation of the left leg tourniquet, I went ahead and did systematic arthroscopy. Upon entering the left knee, the medial femoral condyle, tibial plateau, medial meniscus were normal. ACL/PCL was normal. At this time, the lateral femoral condyle, tibial plateau, and lateral meniscus were normal. The femoral trochlear groove had no cartilaginous breakdown. At this point in time, as far as the patella goes, there was noted to be softening between the medial and lateral junction of the patella. However, at this time, there was mobility of the patella that I was able to centralize the patella itself. I re-investigated the lateral release; however, there was very thin skin bridge, and at this time, I did not feel that there was any redo lateral release that was warranted. I then went ahead and made an incision slightly lateral over the tibial tubercle. I then went ahead and proceeded forward with identifying the proximal portion of the tibial tubercle. We then went ahead and proceeded forward with making our osteotomy cut from posterior-lateral to anterior-medial, thus doing an anteriorization and a medialization of the tibial tubercle, decompressing the patellofemoral joint. At this time, prior to completing the distal portion of the osteotomy, a 4.0 cannulated guide pin was placed. After the guide pin was placed, I then went ahead and rotated the tibial tubercle from its proximal portion 1.2 cm medially. After the medialization of the proximal tibial tubercle rotating around the distal cannulated pin, I then placed three 4.0 cannulated screws under fluoroscopy assistance. After this, there was good tracking of the patella. There was good range of motion. Good stability at the osteotomy site. We then let the tourniquet down. Bleeders were coagulated. Wound was irrigated. Bone wax was placed over the osteotomy site. Wounds were closed with 2-0 Vicryl, skin aris. Patient placed in sterile dressing and knee immobilizer, extubated, and taken to PACU without intraoperative complication. D 10/22/2019 08:23 [id number] 10/22/2019 09:22 SUDHA/OREN Brief Post Operative Note Patient Name: Jennifer Dick : 1995 (24 y.o.) Date of Service: 10/22/2019 CSN: [id number] Procedure(s): Left knee Natasha osteotomy, diagnostic left knee arthroscopy Pre-Operative Diagnoses: * Patellofemoral pain syndrome of left knee [M22.2X2] Post-Operative Diagnoses: * Same as Pre-Op Diagnosis * Patellofemoral pain syndrome of left knee [M22.2X2] Surgeon(s) and Role: * Ernie Grove MD - Primary Anesthesiologist: Chivo Vilchis MD METAL BURNISHER: Boaz Wooten CRNA Peripheral Edp Equipment Operator: Jenni Trujillo RN [employer] Supervisor: Argelia Delgado, TECHNOLOGIST Scrub Person Preceptor: ST Chelsea Scrub Person Orientee: Lynne Amador RN Scrub Person Assist: uSzy Alcala LPN HARDENING MACHINE OPERATOR: Aranza Bradford RN Operative findings: see preop Intra and immediate post-operative complications: none Type of anesthesia used: General Estimated blood loss: 5 mL Estimated urine output: Refer to surgical log Specimen(s): * No specimens in log * Implant(s): Implant Name Type Inv. Item Serial No. Operator Vacuum Lot No. LRB No. Used Action SCREW 4 X 38MM GUERO SHORT THRD - [id number] SCREW 4 X 38MM GUERO SHORT THRD SYNTHES LT LOAD #[id number] Left 1 Implanted SCREW 4 X 40MM GUERO SHORT THRD - [id number] SCREW 4 X 40MM GUERO SHORT THRD SYNTHES LT LOAD #[id number] Left 2 Implanted Drain(s): * No LDAs found * Wound(s): Wound 10/22/19 Surgical Wound Knee Left (Active) Ernie Grove MD 10/22/2019 8:18 AM documented in this encounter Dictation on: 07/20/2020 12:10 PM by: ERNIE GROVE [[id number]] Brief Post Operative Note Patient Name: Jennifer Dick : 1995 (24 y.o.) Date of Service: 07/20/2020 CSN: [id number] Procedure(s): Left knee arthroscopy synovectomy Pre-Operative Diagnoses: * Patellofemoral pain syndrome of left knee [M22.2X2] Post-Operative Diagnoses: * Same as Pre-Op Diagnosis * Patellofemoral pain syndrome of left knee [M22.2X2] Surgeon(s) and Role: * Ernie Grove MD - Primary Anesthesiologist: Jose Merino MD METAL BURNISHER: Lonnie Gomez CRNA Peripheral Edp Equipment Operator: Sushma North RN; Tj Del Toro RN Scrub Person: ST Jeannie Bisque Placer: ST Ashly Operative findings: see preop Intra and immediate post-operative complications: none Type of anesthesia used: General Estimated blood loss: 1 mL Estimated urine output: Refer to surgical log Specimen(s): * No specimens in log * Implant(s): * No implants in log * Drain(s): * No LDAs found * Wound(s): Wound 10/22/19 Surgical Wound Knee Left (Active) Wound 07/20/20 Surgical Wound Knee Left (Active) Ernie Grove MD 07/20/2020 12:05 PM Will notify Marylu of need for current h and p documented in this encounter <item><item> Privacy Markings (unrecogniz ed section and content) Section Author: Kamla Evans PROHIBITION ON REDISCLOSURE OF CONFIDENTIAL INFORMATION This notice accompanies a disclosure of information concerning a client made to you with the consent of such client. Section Author: Kamla Evans PROHIBITION ON REDISCLOSURE OF CONFIDENTIAL INFORMATION This notice accompanies a disclosure of information concerning a client made to you with the consent of such client. Care Teams (unrecognized sec tion and content) Shampoo Person Relationship Specialty Start Date End Date Evelyn Busch DO [address] [place] [address] PCP - General 06/19/19 Flavio, Lung S, SCRIPT GIRL-NAILER OPERATOR PCP - Employee ACO PCP 02/04/23 Shampoo Person Relationship Specialty Start Date End Date Evelyn Busch DO [address] [place] [address] PCP - General 06/19/19 Flavio, Lung S, SCRIPT GIRL-NAILER OPERATOR PCP - Employee ACO PCP 02/04/23 Shampoo Person Relationship Specialty Start Date End Date Evelyn Busch DO [address] [place] [address] PCP - General 06/19/19 Flavio, Lung S, SCRIPT GIRL-NAILER OPERATOR PCP - Employee ACO PCP 02/04/23 Shampoo Person Relationship Specialty Start Date End Date Evelyn Busch DO [address] [place] [address] PCP - General 06/19/19 Flavio, Lung S, SCRIPT GIRL-NAILER OPERATOR PCP - Employee ACO PCP 02/04/23 Shampoo Person Relationship Specialty Start Date End Date Evelyn Busch DO [address] [place] [address] PCP - General 06/19/19 Flavio, Lung S, SCRIPT GIRL-NAILER OPERATOR [address] [place] [address] PCP - Employee ACO PCP 02/04/23 Shampoo Person Relationship Specialty Start Date End Date Evelyn Busch DO [address] [place] [address] PCP - General 06/19/19 Flavio, Lung S, SCRIPT GIRL-NAILER OPERATOR PCP - Employee ACO PCP 02/04/23 Shampoo Person Relationship Specialty Start Date End Date Evelyn Busch DO [address] [place] [address] PCP - General 06/19/19 Flavio, Lung S, SCRIPT GIRL-NAILER OPERATOR [address] [place] [address] PCP - Employee ACO PCP 02/04/23 Shampoo Person Relationship Specialty Start Date End Date Evelyn Busch DO [address] [place] [address] PCP - General 06/19/19 Tammy Simeon, SCRIPT GIRL-NAILER OPERATOR [address] [place] [address], [address] [address] PCP - Employee ACO PCP 10/07/23 Shampoo Person Relationship Specialty Start Date End Date Evelyn Busch DO [address] [place] [address] PCP - General 06/19/19 Tammy Simeon, SCRIPT GIRL-NAILER OPERATOR [address] [facility], [address] [address] PCP - Employee ACO PCP 10/07/23 Shampoo Person Relationship Specialty Start Date End Date Evelyn Busch DO [address] [place] [address] PCP - General 06/19/19 Tammy Simeon, SCRIPT GIRL-NAILER OPERATOR [address] [place] [address], [address] [address] PCP - Employee ACO PCP 10/07/23 Tammy Simeon, SCRIPT GIRL-NAILER OPERATOR [address] [facility], [address] [address] PCP - [place] ACO PCP 10/07/23 Shampoo Person Relationship Specialty Start Date End Date Evelyn Busch DO [address] [place] [address] PCP - General 06/19/19 Tammy Simeon, SCRIPT GIRL-NAILER OPERATOR [address] [facility], [address] [address] PCP - Employee ACO PCP 10/07/23 Tammy Simeon, SCRIPT GIRL-NAILER OPERATOR [address] [facility], [facility], [address] [address] PCP - [place] ACO PCP 10/07/23 Shampoo Person Relationship Specialty Start Date End Date Evelyn Busch DO [address] [place] [address] PCP - General 06/19/19 Tammy Simeon, SCRIPT GIRL-NAILER OPERATOR [address] [place] [address], [facility], [address] [address] PCP - Employee ACO PCP 10/07/23 Tammy Simeon, SCRIPT GIRL-NAILER OPERATOR [address] [place] [address], [address] [address] PCP - [place] ACO PCP 10/07/23 Shampoo Person Relationship Specialty Start Date End Date Evelyn Busch DO [address] [place] [address] PCP - General 06/19/19 Shari Muniz S, SCRIPT GIRL-NAILER OPERATOR [address] [place] [address] PCP - Employee ACO PCP 02/04/23 Shampoo Person Relationship Specialty Start Date End Date Evelyn Busch DO [address] [place] [address] PCP - General 06/19/19 Tammy Simeon, SCRIPT GIRL-NAILER OPERATOR [address] [facility], [address] [address] PCP - Employee ACO PCP 10/07/23 Tammy Simeon, SCRIPT GIRL-NAILER OPERATOR [address] [facility], [facility], [address] [address] PCP - [place] ACO PCP 10/07/23 Shampoo Person Relationship Specialty Start Date End Date Evelyn Busch DO [address] [place] [address] [place] [address] PCP - General 06/19/19 Tammy Simeon SCRIPT GIRL-NAILER OPERATOR [address] [address] PCP - [place] ACO PCP 04/06/24 Shampoo Person Relationship Specialty Start Date End Date Evelyn Busch DO PCP - General Internal Medicine 03/13/19 Shampoo Person Relationship Specialty Start Date End Date Tammy Simeon SCRIPT GIRL-NAILER OPERATOR [address] [address] PCP - [place] ACO PCP 04/06/24 Evelyn Busch DO [address] [place] [address] PCP - General Internal Medicine 03/23/25 Scheduled Active and Recently Administ ered Medications (unrecognized section and content) Medication Order 09/23/2023 09/24/2023 09/25/2023 acetaminophen (Tylenol) tablet 975 mg (COMPLETED) 975 mg, oral, Once, On Sat09/25/23 at 0700, For 1 dose, Preprocedure, Administer with small amount of water preoperatively., If ordered PRN for pain, nurse is permitted to administer this medication for higher pain scores based on patient preference? Yes 0703 (Given - Provid er: Susana Rich RN) ciprofloxacin (Cipro) IVPB 400 mg (COMPLETED)(Linked Group 1) 400 mg, intravenous, at 200 mL/hr, Administer over 60 Minutes, Once, On Sat09/25/23 at 0615, For 1 dose, Preprocedure, premix bag, Dosing of this medication varies based on severity of illness. Does this patient have sepsis or concern for sepsis (probable or documented infection plus systemic manifestations of infection)? Yes, Suspected Indication (Select all that apply): Surgical Prophylaxis 0702 (New Bag - Prov ider: Susana Rich RN)0802 (Stopped - Provider: Obdulia Levine RN) dexAMETHasone (PF) (Decadron) injection 8 mg (COMPLETED) 8 mg, intravenous, Once, On Sat09/25/23 at 0700, For 1 dose, Preprocedure 0702 (Given - Provid er: Susana Rich RN) metroNIDAZOLE (Flagyl) 500 mg in NaCl (iso-os) 100 mL (COMPLETED)(Linked Group 1) 500 mg, intravenous, Administer over 60 Minutes, Once, On Sat09/25/23 at 0615, For 1 dose, Preprocedure, Do NOT give with alcohol or drug products with significant alcohol content., Suspected Indication (Select all that apply): Surgical Prophylaxis 0714 (New Bag - Prov ider: Susana Rich RN)0814 (Stopped - Provider: Obdulia Levine RN) midazolam (Versed) injection 1 mg (COMPLETED) 1 mg, intravenous, Once, On Sat09/25/23 at 0700, For 1 dose, Preprocedure 0709 (Given - Provid er: Susana Rich RN) ondansetron (Zofran) injection 4 mg (COMPLETED) 4 mg, intravenous, Once, On Sat09/25/23 at 0700, For 1 dose, Preprocedure, When administering via IV Push, administer over 3-5 minutes. 0702 (Given - Provid er: Susana Rich RN) Continuous Medication Order 09/23/2023 09/24/2023 09/25/2023 lactated Ringer's infusion 50 mL/hr, intravenous, Continuous, Starting on Sat09/25/23 at 0700, Preprocedure 0708 (New Bag - Prov ider: Susana Rich RN) lactated Ringer's infusion 100 mL/hr, intravenous, Continuous, Starting on Sat09/25/23 at 0845, Recovery (only) 0838 (New Bag - Prov ider: Obdulia Levine RN)1115 (Stopped - Provider: Rekha Dodd RN) PRN Medication Order 09/23/2023 09/24/2023 09/25/2023 bupivacaine PF (Marcaine) 0.25 % (2.5 mg/mL) injection (CANCELED) As needed, Starting on Sat09/25/23 at 0825, Intraprocedure 0825 (Given - Provid er: Evelyn Del Rio MD) labetaloL (Normodyne,Trandate) injection 5 mg 5 mg, intravenous, Administer over 1 Minutes, Once as needed, systolic blood pressure greater than 180 mmHg, dystolic blood pressure greater than 100 mmHg and heart rate greater than 60 BPM, Starting on Sat09/25/23 at 0836, For 1 dose, Recovery (only) morphine injection 2 mg 2 mg, intravenous, Every 5 min PRN, pain moderate (4-6), first line, Starting on Sat09/25/23 at 0836, Recovery (only), Max total of 20 mg regardless of dose. morphine injection 4 mg 4 mg, intravenous, Every 5 min PRN, pain severe (7-10), first line, Starting on Sat09/25/23 at 0836, Recovery (only), Max total of 20 mg regardless of dose. 0843 (Given - Provid er: Obdulia Levine RN)0913 (Given - Provider: Obdulia Levine, ASHLEY) ondansetron (Zofran) injection 4 mg 4 mg, intravenous, Once as needed, nausea/vomiting, first line, Starting on Sat09/25/23 at 0836, For 1 dose, Recovery (only), When administering via IV Push, administer over 3-5 minutes. oxyCODONE (Roxicodone) immediate release tablet 5 mg 5 mg, oral, Every 4 hours PRN, pain mild (1-3), first line, Starting on Sat09/25/23 at 0836, Recovery (only), When able to take oral medications., If ordered PRN for pain, nurse is permitted to administer this medication for higher pain scores based on patient preference? Yes 1111 (Given - Provid er: Rekha Dodd RN) promethazine (Phenergan) 6.25 mg in sodium chloride 0.9% 50 mL IV (COMPLETED) 6.25 mg, intravenous, Administer over 15 Minutes, Once as needed, Nausea/vomiting, second line, Starting on Sat09/25/23 at 0836, For 1 dose, Recovery (only) 0838 (New Bag - Prov ider: Obdulia Levine RN)0853 (Stopped - Provider: Obdulia Levine RN) Linked Groups Order Group 1: metroNIDAZOLE (Flagyl) 500 mg in NaCl (iso-os) 100 mL (COMPLETED)Jump to med 500 mg, intravenous, Administer over 60 Minutes, Once, On Sat09/25/23 at 0615, For 1 dose, Preprocedure
Do NOT give with alcohol or drug products with significant alcohol content.
Suspected Indication (Select all that apply): Surgical Prophylaxis And ciprofloxacin (Cipro) IVPB 400 mg (COMPLETED)Jump to med 400 mg, intravenous, at 200 mL/hr, Administer over 60 Minutes, Once, On Sat09/25/23 at 0615, For 1 dose, Preprocedure
premix bag
Dosing of this medication varies based on severity of illness. Does this patient have sepsis or concern for sepsis (probable or documented infection plus systemic manifestations of infection)? Yes
Suspected Indication (Select all that apply): Surgical Prophylaxis Scheduled Medication Order 03/21/2025 03/22/2025 03/23/2025 acetaminophen (Tylenol) tablet 975 mg (COMPLETED) 975 mg, oral, Once, On Sat03/23/25 at 1040, For 1 dose, If ordered PRN for pain, nurse is permitted to administer this medication for higher pain scores based on patient preference? Yes 1057 (Given - Provid er: Quin Palafox RN) diphenhydrAMINE (BENADryl) injection 25 mg (COMPLETED) 25 mg, intravenous, Once, On Sat03/23/25 at 1040, For 1 dose, If giving IV push, max rate of 25 mg/min. 1058 (Given - Provid er: Quin Palafox RN) metoclopramide (Reglan) injection 10 mg (COMPLETED) 10 mg, intravenous, Once, On Sat03/23/25 at 1040, For 1 dose 1058 (Given - Provid er: Quin Palafox RN) sodium chloride 0.9 % bolus 1,000 mL (COMPLETED) 1,000 mL, intravenous, at 999 mL/hr, Administer over 1 Hours, Once, On Sat03/23/25 at 1040, For 1 dose 1057 (New Bag - Prov ider: Quin Palafox RN)1206 (Stopped - Provider: Quin Palafox RN) Source Comments (unrecognize d section and content) In the event this informatio n is protected by the Federal Confidentiality of Alcohol and Drug Abuse Patient Records regulations: The Federal rules restrict any use of the information to criminally investigate or prosecute any alcohol or drug abuse patient.[facility] Hospital[facility] the event this information is protected by the Federal Confidentiality of Alcohol and Drug Abuse Patient Records regulations: The Federal rules restrict any use of the information to criminally investigate or prosecute any alcohol or drug abuse patient.[facility] HospitalIn the event this information is protected by the Federal Confidentiality of Alcohol and Drug Abuse Patient Records regulations: The Federal rules restrict any use of the information to criminally investigate or prosecute any alcohol or drug abuse patient.[facility] HospitalIn the event this information is protected by the Federal Confidentiality of Alcohol and Drug Abuse Patient Records regulations: The Federal rules restrict any use of the information to criminally investigate or prosecute any alcohol or drug abuse patient.[facility] HospitalIn the event this information is protected by the Federal Confidentiality of Alcohol and Drug Abuse Patient Records regulations: The Federal rules restrict any use of the information to criminally investigate or prosecute any alcohol or drug abuse patient.[facility] HospitalIn the event this information is protected by the Federal Confidentiality of Alcohol and Drug Abuse Patient Records regulations: The Federal rules restrict any use of the information to criminally investigate or prosecute any alcohol or drug abuse patient.[facility] HospitalIn the event this information is protected by the Federal Confidentiality of Alcohol and Drug Abuse Patient Records regulations: The Federal rules restrict any use of the information to criminally investigate or prosecute any alcohol or drug abuse patient.[facility] HospitalIn the event this information is protected by the Federal Confidentiality of Alcohol and Drug Abuse Patient Records regulations: The Federal rules restrict any use of the information to criminally investigate or prosecute any alcohol or drug abuse patient.[facility] HospitalIn the event this information is protected by the Federal Confidentiality of Alcohol and Drug Abuse Patient Records regulations: The Federal rules restrict any use of the information to criminally investigate or prosecute any alcohol or drug abuse patient.[facility] HospitalIn the event this information is protected by the Federal Confidentiality of Alcohol and Drug Abuse Patient Records regulations: The Federal rules restrict any use of the information to criminally investigate or prosecute any alcohol or drug abuse patient.[facility] HospitalIn the event this information is protected by the Federal Confidentiality of Alcohol and Drug Abuse Patient Records regulations: The Federal rules restrict any use of the information to criminally investigate or prosecute any alcohol or drug abuse patient.[facility] FOR RECORDS PERTAINING TO PATIENTS WHO ARE OR HAVE BEEN ENROLLED IN A CHEMICAL DEPENDENCY/SUBSTANCEABUSE PROGRAM, SOME INFORMATION MAY BE OMITTED. This clinical summary was aggregated from multiple sources. Caution should be exercised in using it in the provision of clinical care. This summary normalizes information from multiple sources, and as a consequence, information in this document may materially change the coding, format and clinical context of patient data. In addition, data may be omitted in some cases. CLINICAL DECISIONS SHOULD BE BASED ON THE PRIMARY CLINICAL RECORDS. [facility] [employer] [facility]. provides no warranty or guarantee of the accuracy or completeness of information in this document.
[2025-08-13 22:41] VITALS: BMI 42.5
[2025-08-13 22:48] VITALS: RESP 16; TEMP 36.4
[2025-08-13 22:49] VITALS: BP 129/81; PULSE 93; O2SAT 97
--- NOTE | 2025-08-14 10:38 | PCM.HP.OB ---
HPI - General General Date of Admission: 08/13/25 Date of Service: 08/13/25 Chief Complaint: contractions HPI Narrative LAURY PATEL, is a 29 F who presents 1 para 0 complaining of contractions. Maternal Data Information Final LILIANE: 09/03/25 Gestational age: 37 0/7 [facility] Medical History (Updated 08/14/25 @ 10:[address] Neli Munoz MD) Migraines IBS (irritable bowel syndrome) Depression Anemia GDM (gestational diabetes mellitus) POTS (postural orthostatic tachycardia syndrome) Home Medications ?Medication ?Instructions ?Recorded ?Last Taken ?Type aspirin 81 mg capsule 162 mg PO DAILY 08/13/25 08/12/25 History cyproheptadine 4 mg tablet 4 mg PO TID PRN migraine headache 08/13/25 Unknown History famotidine 20 mg tablet (Pepcid) 20 mg PO BID 08/13/25 08/13/25 History ferrous sulfate 325 mg (65 mg 325 mg PO DAILY 08/13/25 08/13/25 History iron) tablet (Feosol) labetalol 100 mg tablet 100 mg PO PRN 08/13/25 Unknown History vitamins no.102-iron 90 cap PO 08/13/25 08/13/25 History mg-folate 1 mg-dha 200 mg capsule Allergy/AdvReac Type Severity Reaction Status Date / Time adhesive Allergy Mild Rash Verified 08/13/25 22:55 cephalexin Allergy Mild rash Verified 08/13/25 22:55 midodrine Allergy Mild rash Verified 08/13/25 22:55 Sutures Allergy Mild Hives Verified 08/13/25 22:55 Surgical History (Updated 08/13/25 @ 22:59 by Anthony Vasquez) H/O left knee surgery NST FHR Rate Baby A Baseline: 110 Variability:: Moderate Accelerations:: 15 x 15 Decelerations:: None NST Reactive:: Yes Uterine Activity:: irregular Vital Signs Vital Signs Vital Signs: 08/13/25 22:48 08/13/25 22:48 08/13/25 22:48 Temperature 97.6 F L Temperature Source Temporal Pulse Rate Respiratory Rate 16 Blood Pressure BP Systolic BP Diastolic Pulse Ox 08/13/25 22:49 08/13/25 22:49 08/13/25 22:49 Temperature Temperature Source Pulse Rate 93 Respiratory Rate Blood Pressure 129/81 H BP Systolic 129 BP Diastolic 81 Pulse Ox 97 Weight Weight: 112.491 kg Body Mass Index (BMI) 42.5 Assessment & Plan (1) 37 weeks gestation of : (2) False labor: PLAN: reactive NST, no evidence of active labor. F/u as scheduled or prn
== END 2025-08-14 01:10 | disposition home or self-care (01) ==
LOC: WPOUT 22:36 → WP 22:37
PROVIDERS: PCP Internal Medicine; Visit Provider Obstetrics & Gynecology
DX: O47.1 False labor at or after 37 completed weeks of gestation (principal); Z79.82 Long term (current) use of aspirin; Z79.899 Other long term (current) drug therapy; Z3A.37 37 weeks gestation of pregnancy
CPT/HCPCS: 59050; 99221; G0378

== ENCOUNTER 2025-08-29 18:55 | Inpatient (IN) | payer BC, SELFPAY ==
--- OUTSIDE RECORDS SUMMARY | 2025-08-29 19:02 | XMS RPT_ITS | CCD ---
Author Organization [facility] Care Team Providers Care Financial Engineer Name Role Phone Jatin Jung Unavailable [phone] OberhauserBayronn Primary Care Provider [phone] OberhausBayron laon Primary Care Provider [phone] Oberhauser, Evelyn Unavailable Unavailable Rayray Ayala Unavailable Unavailable Oberhauser, Evelyn L Unavailable Unavailable Jatin Jung Unavailable Unavailable Jose Aggarwal Unavailable Unavailable Oberhauser, Evelyn L Unavailable Unavailable ERNIE GROVE Admitting Unavailab ERNIE Quinn Referring Unavailab le OBERHAUSER, EVELYN Primary Care Unavailable OBERHAUSER, EVELYN Primary Care Unavailable Oberhauser, Evelyn Primary Care Provider [phone] Noemi Witt Unavailable Unavailable Oberhauser, Evelyn [...] Unavailab le OBERHAUSER, EVELYN Primary Care Unavailable OberhausEvelyn lao Unavailable Unavailable Unavailable Unavailable Unavailable Unavailable Unavailable Oberhaustashia, Evelyn L Unavailable Chuck Thorpe Unavailable Unavailable Flavio, Lung S Unavailable Unavailable Brigitte, Fili W Unavailable Som Rosas Unavailable Unavailable Ileana Gutiérrez Unavailable Donna Arias [...] Evelyn Bennett Primary Care Unava ilable Flavio, Ms. Lung Sosa Attending Unavailable Oberhauser, Dr. Evelyn [...] Care Unava ilable DANA RAMOS Attending Unavailable DannMemo Unavailable Simeon, Ms. Tammy J Referring Unavailable Oberhauser, Dr. Evelyn Bennett Primary Care Unava ilable Simeon, Ms. Tammy J Attending Unavailable Simeon, Ms. Tammy J Referring Unavailable Oberhauser, Dr. Evelyn Bennett Primary Care Unava ilable Simeon, Ms. Tammy J Attending Unavailable Simeon, Ms. Tammy J Referring Unavailable Oberhauser, Dr. Evelyn Bennett Primary Care Unava ilable Sami, Ms. Tammy J Attending Unavailable Oberhauser, Dr. [...] Oberhauser DO, Evelyn L Primary Care Provider Flavio MERCHANDISING TEAM LEAD-CHIEF PHARMACIST, Lung S Unavailable Unavailab le Flavio MERCHANDISING TEAM LEAD-CHIEF PHARMACIST, Lung S Unavailable [phone] Simeon MERCHANDISING TEAM LEAD-CHIEF PHARMACIST, Tammy J Unavailable Simeon MERCHANDISING TEAM LEAD-CHIEF PHARMACIST, Tammy J Unavailable Simeon MERCHANDISING TEAM LEAD-CHIEF PHARMACIST, Tammy J Unavailable OBERHAUSER, EVELYN L Primary [...] Unavailable Oberhauser DO, Evelyn Primary Care Provider [phone] OBERHAUSER, EVELYN Referring Unavailable OBERHAUSER, EVELYN Attending Unavailable OBERHAUSER, EVELYN Primary Care Unavailable Simeon MERCHANDISING TEAM LEAD-CHIEF PHARMACIST, Tammy J Unavailable Oberhauser DO, Evelyn L Primary Care Provider [phone] OBERHAUSER, EVELYN L Primary Care Unavailable KAI VERA Attending Unavailable JOY DENNISON Attending Unavailable ERIK, NELI L Referring Unavailable HAURY, CHRISSIE Referring Unavailable ERIK, NELI L Referring Unavailable BRISEYDA, ALBA Attending Unavailable BRISEYDA, ALBA Referring Unavailable ROLDAN, LORRAINE Referring Unavailable MARY STILL Attending Unavailable ROLDAN, LORRAINE Referring Unavailable ROLDAN, LORRAINE Attending Unavailable ROLDAN, LORRAINE Referring Unavailable ROLDAN, LORRAINE Attending Unavailable ROLDAN, LORRAINE Attending Unavailable SELF Referring Unavailable ROLDAN, LORRAINE Referring Unavailable FLAQUITO, LORRAINE Attending Unavailable MILTON MIRANDA Attending Unavailable December, Referring Unavailable ROLDAN, LORRAINE Referring Unavailable HAURY, CHRISSIE Attending Unavailable TAYLOR WOOTEN Attending Unavailable SHAQUILLE POON Attending Unavail able ROLDAN, LORRAINE Referring Unavailable ROLDAN, LORRAINE Referring Unavailable ROLDAN, LORRAINE Attending Unavailable ROLDAN, LORRAINE Referring Unavailable MARY STILL Attending Unavailable SELF Referring Unavailable ROLDAN, LORRAINE Referring Unavailable NESHAQUILLE GREEN Attending Unavail able NESHAQUILLE GREEN Attending Unavail able ROLDAN, LORRAINE Referring Unavailable ROLDAN, LORRAINE Referring Unavailable NELI VALENCIA Attending Unavailable ROLDAN, LORRAINE Referring Unavailable ROLDAN, LORRAINE Referring Unavailable ROLDAN, LORRAINE Referring Unavailable CHRISSIE AGUILERA Attending Unavailable TAYLOR WOOTEN Attending Unavailable ROLDAN, LORRAINE Referring Unavailable ObEvelyn nolan Primary Care Unavailable Flako Fuchs Attending Unavailable ObEvelyn nolan Primary Care Unavailable Roldan, Lorraine Admitting Unavailable Roldan, Lorraine Attending Unavailable Roldan, Lorraine Referring Unavailable Allergies Allergy Classification Reported Allergen(s) Allergy Type Date of Onset Reaction(s) Facility Cephalosporins (antibiotic) (1 source) Cephalexin Drug Allergy 4 [facility] Penicillins (antibiotic) (5 sources) Penicillins; Translations: [Penicillins] Drug Allergy 8 [facility] (18 sources) Penicillins; Translations: [PENICILLINS] Propensity to adverse reactions to drug 8 [facility] (5 sources) Penicillins Propensity to adverse reactions to drug 9 [facility] (20 sources) Penicillins; Translations: [Penicillins] Allergy to drug (finding) [facility] Work Phone: (1 source) Penicillin Drug Allergy Unknown [employer] Other (16 sources) Penicillins Drug Allergy 8 [facility] Work Phone: (10 sources) Adhesive Tape-Silicones; Translations: [ADHESIVE TAPE-SILICONES] Propensity to adverse reactions 4 [facility] Work Phone: (20 sources) Sutures; Translations: [SUTURES] Propensity to adverse reactions 4 [facility] Work Phone: (20 sources) Cephalexin; Translations: [CEPHALEXIN] Drug Allergy 4 Itching [facility] (9 sources) Adhesive agent; Translations: [ADHESIVE] Drug Allergy 5 [facility] (1 source) Penicillins Propensity to adverse reactions to drug 9 [facility] ([facility] *Sutures Propensity to adverse reactions 4 Hives, Itching [facility] (1 source) Skin Adhesives Propensity to adverse reactions to drug 5 Hives, Itching [facility] (12 sources) Penicillins Drug Allergy 8 [facility] (3 sources) Midodrine; Translations: [MIDODRINE] Drug Allergy 5 Other [facility] Work Phone: (5 sources) Adhesive agent Drug Allergy 5 [facility] (1 source) Adhesive agent Drug allergy (disorder) 5 [facility] (1 source) Cephalexin Drug Allergy 5 [facility] (1 source) Midodrine Drug Allergy 5 [facility] (1 source) Sutures Drug allergy (disorder) 5 [facility] Medications Current Medications Medication Drug Class(es) Dates [...] Platelet Aggregation Inhibitor, Nonsteroidal Anti-inflammatory Drug Start: 01-30-20 take 1 tablet by mouth once daily [...] DO Active take 1 tablet by marycruz th once daily as needed cetirizine 10 mg [...] dihydroergotamine mesylate 0.725 MG/ACTUAT Metered Dose Nasal [place] [Trudhesa] (1 source) Trudhesa 0.725 MG/ACT 1 [...] in the evening norethindrone ac-eth estradioL (Microgestin 1/20) 1-20 mg-mcg tablet Indications: Encounter for surveillance of contraceptive pills Take 1 tablet by mouth once daily. 28 tablet 11 07/20/2024 2:19 PM EDT 08/23/2023 10/23/2024 Discontinued (Therapy completed) Start: 08-23-2023 End: 08-22-2024 take 0.05 ug by mouth once daily norethindrone ac-eth estradioL (Microgestin 1/20) 1-20 mg-mcg tablet Indications: Encounter for surveillance of contraceptive pills Take 1 tablet by mouth once daily. 28 tablet 11 08/23/2023 08/22/2024 Suspended Start: 08-23-2023 End: 08-22-2024 take 0.05 ug by mouth once daily norethindrone ac-eth estradioL (Microgestin 1/20) 1-20 mg-mcg tablet Indications: Encounter for surveillance [...] 08/06/2023 04/17/2024 Discontinued (Therapy completed) flu vacc [id number] 6mos up, PF, (Flulaval Quad , PF,) syringe (7 sources) Start: 09-04-2023 End: 01-09-2024 flu vacc [id number] 6mos up, PF, (Flulaval Quad , PF,) [...] Discontinued (Therapy completed) take 1 capsule by [facility] every twenty-four hours Gabapentin 300 MG 1 [...] day Quantity: 0 Refills: 0 Ordered: 11-Nov-2019 KarenMicaelaKen Status: Other Generic Substitution Allowed isopropyl alcohol 0.7 ml/ml medicated pad (1 source) Start: alcohol swabs (ALCOHOL PREP PADS) Use as directed to check glucose levels up to seven times daily. 200 each 8 06/21/2025 Active labetalol hydrochloride 100 mg oral tablet (12 sources) beta-Adrenergic Beltran Start: take 1 tablet by mouth every twenty-four [...] Active Start: 10-23-2024 take 1 tablet by [facility] three times daily midodrine (Proamatine) 2.5 mg [...] solution Quantity: 0 Refills: 0 Ordered: 11-Nov-2019 Ken Jones Status: Other Generic Substitution Allowed Trudhesa [...] 03/13/2019 04/29/2019 Discontinued (Reorder) Comment on above: Source=[employer] ED[employer], Medication=ZONISAMIDE CAP 100MG, OriginatingSource=[facility], OriginatingProvider=, , Duration=30, Quantity=90, Date Last Modified/Filled=21-Oct-2019 [...] mouth every four hours for pain HYDROcodone-acetaminophen ([place]) 5-325 mg tablet Indications: RUQ abdominal pain Take 1 tablet by mouth every 4 hours if needed for severe pain (7 - 10) for up to 5 days. 20 tablet 0 08/06/2023 08/11/2023 Ajovy 225 MG/1.5ML Subcutaneous Solution Prefilled Syringe (6 sources) Start: 08-12-2019 Ajovy 225 MG/1.5ML Subcutaneous Solution Prefilled Syringe 1 injecton subq q monthly Quantity: 1 Refills: 3 Evelyn Busch DO Start : 12-Aug-2019 Active 1.5 ML Syringe Start: 08-12-2019 Ajovy 225 MG/1 .5ML Subcutaneous Solution Prefilled Syringe 1 injecton subq q monthly Quantity: 1 Refills: 0 Evelyn Busch DO Start : 12-Aug-2019 Active 1.5 ML Syringe [id number] actuat albuterol 0.09 mg/actuat metered dose [...] oral solution (1 source) alpha-Adrenergic Agonist, Uncompetitive H-qtdlji-S-aspartate Receptor Antagonist, Sigma-1 Agonist Start: 02-27-2021 End: 03-08-2021 take 5 mL by mouth every four to six hours brompheniramine/pseudoephedrine/dextrome thorphan [id number]/5 mL oral syrup ; 5 milliliter(s) orally [...] day Quantity: 0 Refills: 0 Ordered: 11-Nov-2019 Ken Jones Status: Other Generic Substitution Allowed Comments: Source=[employer], Medication=DROSPIRE/ETH TAB ESTR/LEV, OriginatingSource=[facility], OriginatingProvider=, , Duration=28, Quantity=28, Date Last Modified/Filled=07-Nov-2019 Comment on above: Source=[employer], Medication=DROSPIRE/ETH TAB ESTR/LEV, OriginatingSource=[facility], OriginatingProvider=, , Duration=28, Quantity=28, Date Last Modified/Filled=07-Nov-2019 1 ml erenumab-aooe 140 mg/ml auto-injector (2 sources) Star t: 11-26 inject 1 mL by subcutaneous injection every 30 days Aimovig 140 MG/ML Subcutaneous Solution Auto-injector Inject 1ml subcutaneously every 30 days Quantity: 1 Refills: 6 Ordered: 08-Nov-2021 Flavio MERCHANDISING TEAM LEAD-CHIEF PHARMACIST, Lung Start : 08-Nov-2021 Active Discontinue Emgality. Topirmate, amitriptyline, ajovy, and emgality have failed. Ethinyl Estradiol / Ferrous fumarate / Norethindrone (14 sources) Estrogen Star t: 0 11-26 23 End: 08-09 23 norethindrone-e.e stradioL-iron (Lo Loestrin) 1 mg-10 mcg (24)/10 mcg (2) tablet TAKE 1 TABLET DAILY DIRECTED. 84 tablet 3 12/06/2022 09/05/2023 Discontinued (Med List Cleanup) Start: 12-06-2022 End: 12-06-2023 norethindrone-e.estradioL-ir on (Lo Loestrin) 1 mg-10 mcg (24)/10 mcg (2) tablet TAKE 1 TABLET DAILY DIRECTED. 84 tablet 3 12/06/2022 12/06/2023 Active Start: 12-06-2022 take 1 tablet by marycruz th once daily Lo Loestrin Fe 1 MG-10 MCG / 10 MCG Oral Tablet TAKE 1 TABLET DAILY DIRECTED. Quantity: 3 Refills: 3 Ordered: 06-Dec-2022 Fried MERCHANDISING TEAM LEAD-CNM, MERCHANDISING TEAM LEAD-CHIEF PHARMACIST, Nancy Start : 06-Dec-2022 Active fluticasone propionate [...] 5 Quantity: 1.5 Refills: 0 Ordered: 11-Nov-2019 Ken Jones Status: Other Generic Substitution Allowed Comments: Source=[employer], Medication=AJOVY INJ 225/1.5, OriginatingSource=[facility], OriginatingProvider=, , Duration=30, Quantity=1.5, Date Last Modified/Filled=21-Oct-2019 Comment on above: Source=[employer], Medication=AJOVY INJ 225/1.5, OriginatingSource=[facility], OriginatingProvider=, , Duration=30, Quantity=1.5, Date Last Modified/Filled=21-Oct-2019 1 ml galcanezumab-g nlm 120 mg/ml prefilled syringe (7 sources) Start : 06-28 inject 120 mg by subcutaneous injection every month Emgality 120 MG/ML Subcutaneous Solution Prefilled Syringe Inject 120mg subq (1 syringe) once a month Quantity: 1 Refills: 6 Ordered: 01-Aug-2021 Evelyn Busch DO Start : 28-Jun-2021 Active Start: 06-28-2021 Emgality 120 M G/ML Subcutaneous Solution Prefilled Syringe Inject 240mg subq (2 syringes) x1 as loading dose Quantity: 2 Refills: 0 Ordered: 28-Jun-2021 Evelyn Busch DO Start : 28-Jun-2021 Active 1 ml HYDROmorphone [...] Quantity: 20 Refills: 0 Ordered: 01-Nov-2021 Flavio CRUZ-CHIEF PHARMACIST, Lung Start : 01-Nov-2021 Active End: 04-29-2019 [...] IM Quantity: 0 Refills: 0 Ordered: 25-Jun-2022 Donna Arias MD Start : 25-Jun-2022 Complete Start: 06-14-2022 MedroxyPROGEST ERone Acetate 150 MG/ML Intramuscular Suspension INJECT EVERY 12 WEEKS DIRECTED Quantity: 1 Refills: 3 Ordered: 14-Jun-2022 Susan CRUZ-DIONE, ANTHONY-ISAIAH, Nancy Start : 14-Jun-2022 Active medroxyPROGESTER one [...] Start : 25-Jun-2019 Active Comment on above: [facility], Medication=M[place]EL[place]AST TAB 10MG, OriginatingSource=[facility], OriginatingProvider=, , Duration=30, Quantity=30, Date Last Modified/Filled=30-Oct-2019 [...] Start: 05-26-2019 take 1 capsule by mo [facility] once daily Omeprazole 40 MG Oral Capsule [...] mg, Intravenous, Once as needed, nausea, Starting Pat 10/22/19 at 0819, For 1 [...] daily Quantity: 30 Refills: 11 Ordered: 19-Jun-2023 [id number] MERCHANDISING TEAM LEAD-[facility], Lung Start : 17-Jan-2022 Active Aimovig, Ajovy, Emgality, Topiramate and amitriptyline have failed. Please enroll in support program if denied. Start: 01-17-2022 take 1 tablet by marycruz th once daily Qulipta 60 MG Oral Tablet one tablet once daily Quantity: 30 Refills: 11 Ordered: 19-Jun-2023 [facility], Lung Start : 17-Jan-2022 Active Aimovig, Ajovy, Emgality, Topiramate and amitriptyline have failed. Please enroll in support program if denied. Start: 01-17-2022 take 1 tablet by marycruz th once daily Qulipta 60 MG Oral Tablet one tablet once daily Quantity: 30 Refills: 5 Ordered: 29-Jan-2023 Tammy Stahl Start : 17-Jan-2022 Active Aimovig, Ajovy, Emgality, Topiramate and amitriptyline have failed. Please enroll in support program if denied. Start: 01-17-2022 take 1 tablet by marycruz th once daily Qulipta 60 MG Oral Tablet one tablet once daily Quantity: 30 Refills: 5 Ordered: 17-Jan-2022 [facility] Lung Start : 17-Jan-2022 Active Aimovig, Ajovy, [...] Comment on above: Source=[employer], Medication=TOPIRAMATE TAB 50MG, OriginatingSource=[facility], OriginatingProvider=, , Duration=30, Quantity=60, Date Last Modified/Filled=30-Oct-2019 1 ml triamcinolone acetonide 40 mg/ml injection (2 sources) Corticosteroid Start: End: triamcinolone acetonide (KENALOG-40) injection 20 mg Start: [...] USE. Quantity: 8 Refills: 5 Ordered: 19-Jun-2023 [id number] MERCHANDISING TEAM LEAD-CHIEF PHARMACIST, Lung Start : 18-Oct-2021 Active Ibuprofen, Tylenol, [...] Quantity: 8 Refills: 5 Ordered: 19-Jun-2023 Flavio MERCHANDISING TEAM LEAD-CHIEF PHARMACIST, Lung Start : 18-Oct-2021 Active Ibuprofen, Tylenol, [...] Quantity: 8 Refills: 5 Ordered: 15-Aug-2022 Flavio MERCHANDISING TEAM LEAD-CHIEF PHARMACIST, Lung Start : 18-Oct-2021 Active Ibuprofen, Tylenol, Naratriptan, sumatriptan, Nurtec, Ubrelvy have failed. Start: 10-18-2021 take 1 dose nasal ro [place] every twenty-four hours Trudhesa 0.725 MG/ACT Nasal Aerosol Solution One spray (0.725 mg) into each nostril (total of 2 sprays per dose) per 24 hours Quantity: 2 Refills: 5 Ordered: 18-Oct-2021 Flavio MERCHANDISING TEAM LEAD-CHIEF PHARMACIST, Lung Start : 18-Oct-2021 Active Problems Active [...] penicillins, initial encounter] Onset: 5 06-03-2025 Episodic Early or threatened labor (1 source) False labor, unspecified; Translations: [False labor, unspecified] Onset: 5 Episodic Esophageal disorders (20 sources) Gastroesophageal reflux [...] 2 Episodic Other aftercare (1 source) Other custodial (current) drug therapy; Translations: [Other press tender long goods (current) drug therapy] Onset: 2 Episodic Other [...] 06-14-2025 Chronic Other complications of (1 source) Obesity complicating , unspecified trimester; Translations: [Obesity in (HCC)] Onset: 5 Chronic Other complications of (1 source) Anemia [...] , antepartum (HCC)] Onset: 5 Episodic Other complications of (1 source) Supervision of high risk , unspecified, second trimester; Translations: [Encounter for supervision of high risk in second trimester, antepartum (HCC)] Onset: 5 Episodic Other connective [...] sources) Drug-induced obesity; Translations: [Drug-induced obesity] Onset: 5 Chronic Other nutritional; endocrine; and metabolic disorders (2 sources) Body mass index (BMI) 36.0-36.9, adult; Translations: [Body mass index (BMI) 36.0-36.9, adult] Onset: 5 Chronic Other and delivery including normal (16 sources) Primigravida; Translations: [Encounter for supervision of normal first , first trimester] Onset: 5 01-29-2025 Episodic Other screening for suspected conditions (not mental disorders or infectious disease) (20 sources) Urine test negative; Translations: [ examination or test, negative result] Onset: 3 Episodic Other upper respiratory disease (20 sources) [...] of ] 06-11-2025 Episodic Residual codes; unclassified (2 sources) 37 weeks gestation of ; Translations: [37 weeks gestation of (HCC)] Onset: Episodic Residual codes; unclassified (1 source) 36 weeks gestation of ; Translations: [36 weeks gestation of (HCC)] Onset: Episodic Residual codes; unclassified (1 source) 34 weeks gestation of ; Translations: [34 weeks gestation of (HCC)] Onset: Episodic Residual codes; unclassified (1 source) 33 weeks gestation of ; Translations: [33 weeks gestation of (HCC)] Onset: 5 Episodic Residual codes; unclassified (1 source) 32 weeks gestation of ; Translations: [32 weeks gestation of (HCC)] Onset: Episodic Residual codes; unclassified (1 source) 30 weeks gestation of ; Translations: [30 weeks gestation of (HCC)] Onset: 5 Episodic Residual codes; unclassified (1 source) 28 weeks gestation of ; Translations: [28 weeks gestation of ([facility])] Onset: 5 Episodic Residual codes; unclassified (1 source) 24 weeks gestation of ; Translations: [24 weeks gestation of ([facility])] Onset: 5 Episodic Residual codes; unclassified (1 source) 27 weeks gestation of ; Translations: [27 weeks gestation of ([facility])] Onset: 5 Episodic Unclassified (2 sources) LIGHT [...] POTASSI [facility] Unclassified (2 sources) [facility] Nursing Faculty Review Required; Translations: [[facility] Nursing Faculty Review Required] Onset: 3 Unclassified (2 sources) [...] aura without status migrainosus, not intractable] Onset: Urinary tract infections (4 sources) Urinary tract infectious disease; Translations: [Urinary tract infection, site not specified] Onset: 03-23-2025 Episodic Past or Other Problems Problem [...] of ; Translations: [16 weeks gestation of ([facility])] Onset: 03-19-2025 Episodic Residual codes; unclassified (1 source) 13 weeks gestation of ; Translations: [13 weeks gestation of ([facility])] Onset: 03-03-2025 Episodic Screening and history of [...] AGE 12; Unclassified (2 sources) [facility] Nursing Faculty Review Required; Translations: [[place] [facility] Nursing Faculty Review Required] Onset: 05-13-2023 Unclassified (16 sources) [...] Test Name Value Interpretation Reference Range Facility H AND P Exam - OB/GYN 11-0 H&P Exam - PERIANESTHESIA NURSE [facility] Medical Records Department [address] [place] [address] H P Exam - PERIANESTHESIA NURSE 08/14/25 1038 MR#: [id number] Acct: [id number] Name: JORGEJENNIFER DE PAZ Rep #: [id number] : 1995 29 From: Neli Valencia MD PCP: Dr. Evelyn Busch, DO Status:DEP CLI Location: [facility] HPI - General General Date of Admission: 08/13/25 Date of Service: 08/13/25 Chief Complaint: contractions HPI Narrative JENNIFER HENLEY, is a 29 F who presents 1 para 0 complaining of contractions. Maternal Data Information Final LILIANE: 09/03/25 Gestational age: 37 0/7 PFSH PFSH Medical History (Updated 08/14/25 @ 10:[address] Neli Valencia MD) Migraines IBS (irritable bowel syndrome) Depression Anemia GDM (gestational diabetes mellitus) POTS (postural orthostatic tachycardia syndrome) Home Medications ???Medication ???Instructions ???Recorded ???Last Taken ???Type aspirin 81 mg capsule 162 mg PO DAILY 08/13/25 08/12/25 History cyproheptadine 4 mg tablet 4 mg PO TID PRN migraine headache 08/13/25 Unknown History famotidine 20 mg tablet (Pepcid) 20 mg PO BID 08/13/25 08/13/25 His tory ferrous sulfate 325 mg (65 mg 325 mg PO DAILY 08/13/25 08/13/25 History iron) tablet (Feosol) labetalol 100 mg tablet 100 mg PO PRN 08/13/25 Unknown His tory vitamins no.102-iron 90 cap PO 08/13/25 08/13/25 History mg-folate 1 mg-dha 200 mg capsule Allergy/AdvReac Type Severity Reaction Status Date / Time adhesive Allergy Mild Rash Verified 08/13/25 22:55 cephalexin Allergy Mild rash Verified 08/13/25 22:55 midodrine Allergy Mild rash Verified 08/13/25 22:55 Sutures Allergy Mild Hives Verified 08/13/25 22:55 Surgical History (Updated 08/13/25 @ 22:59 by Anthony Vasquez) H/O left knee surgery NST FHR Rate Baby A Baseline: 110 Variability:: Moderate Accelerations:: 15 x 15 Decelerations:: None NST Reactive:: Yes Uterine Activity:: irregular Vital Signs Vital Signs Vital Signs: 08/13/25 22:48 08/13/25 22:48 08/13/25 22:48 Temperature 97.6 F L Temperature Source Temporal Pulse Rate Respiratory Rate 16 Blood Pressure BP Systolic BP Diastolic Pulse Ox 08/13/25 22:49 08/13/25 22:49 08/13/25 22:49 Temperature Temperature Source Pulse Rate 93 Respiratory Rate Blood Pressure 129/81 H BP Systolic 129 BP Diastolic 81 Pulse Ox 97 Weight Weight: 112.491 kg Body Mass Index (BMI) 42.5 Assessment Plan (1) 37 weeks gestation of : (2) False labor: PLAN: reactive NST, no evidence of active labor. F/u as scheduled or prn 08/14/25 1045 Cosigner Signature (if applicable): CC: Dr. Evelyn Busch DO; Dr. Neli Valencia MD Signed Normal [facility] ROUTINE, GROUP B ST REPTOCOCCUS BY PCRon 08-06-2025 ROUTINE, GROUP B STREPTOCOCCUS BY PCR Not detected Normal [facility] Comment on above: Performed By: #### G BPCR ####[facility] [id number] [place] [address] [place] CBC W Auto Differential pane l (Bld)on 07-23-2025 Basophils (Bld) [#/Vol] 0.06 10*3/uL Normal <0.11 [facility] Comment on above: Order Comment: Speci men Type: BLOOD SPECIMENOrdering Facility: [facility] Address: [address] [place] [address] Performed By: #### 5 7021-8 ####[facility] [id number] [place] [address] [place] Basophils/100 WBC (Bld) 0.5 % Normal [facility] Comment on above: Order Comment: Speci men Type: BLOOD SPECIMENOrdering Facility: [facility] Address: [address] [place] [address] Performed By: #### 5 7021-8 ####[facility] [id number] [place] [address] [place] Differential cell count method Nom (Bld) Auto Normal [facility] Comment on above: Order Comment: Speci men Type: BLOOD SPECIMENOrdering Facility: [facility] Address: [address] [place] [address] Performed By: #### 5 7021-8 ####[facility] [id number] [place] [address] [place] Eosinophils (Bld) [#/Vol] 0.13 10*3/uL Normal <0.46 [facility] Comment on above: Order Comment: Speci men Type: BLOOD SPECIMENOrdering Facility: [facility] Address: [address] [place] [address] Performed By: #### 5 7021-8 ####[facility] [id number] [place] [address] [place] Eosinophils/100 WBC (Bld) 1.1 % Normal [facility] Comment on above: Order Comment: Speci men Type: BLOOD SPECIMENOrdering Facility: [facility] Address: [address] [place] [address] Performed By: #### 5 7021-8 ####[facility] [id number] [place] [address] [place] Erythrocyte distribution width (RBC) [Ratio] 13.7 % Normal 11.5-15.0 [facility] Comment on above: Order Comment: Speci men Type: BLOOD SPECIMENOrdering Facility: [facility] Address: [address] [place] [address] Performed By: #### 5 7021-8 ####[facility] [id number] [place] [address] [place] Hematocrit (Bld) [Volume fraction] 30.3 % Low 36.0-46.0 [facility] Comment on above: Order Comment: Speci men Type: BLOOD SPECIMENOrdering Facility: [facility] Address: [address] [place] [address] Performed By: #### 5 7021-8 ####[facility] MILLTOWNCLIA [id number] [place] [address] [place] Hemoglobin (Bld) [Mass/Vol] 10.1 g/dL Low 11.5-15.5 [facility] Comment on above: Order Comment: Speci men Type: BLOOD SPECIMENOrdering Facility: [facility] Address: [address] [place] [address] Performed By: #### 5 7021-8 ####[facility] PEMBROKENCLIA [id number] [place] [address] [place] Immature granulocytes (Bld) [#/Vol] 0.08 10*3/uL Normal <0.10 [facility] Comment on above: Order Comment: Speci men Type: BLOOD SPECIMENOrdering Facility: [facility] Address: [address] [place] [address] Performed By: #### 5 7021-8 ####[facility] PEMBROKENCLIA [id number] [place] [address] [place] Immature granulocytes/100 WBC (Bld) 0.7 % Normal [facility] Comment on above: Order Comment: Speci men Type: BLOOD SPECIMENOrdering Facility: [facility] Address: [address] [place] [address] Performed By: #### 5 7021-8 ####[facility] PEMBROKENCLIA [id number] [place] [address] [place] Lymphocytes (Bld) [#/Vol] 2.45 10*3/uL Normal 1.00-4.00 [facility] Comment on above: Order Comment: Speci men Type: BLOOD SPECIMENOrdering Facility: [facility] Address: [address] [place] [address] Performed By: #### 5 7021-8 ####[facility] [id number] [place] [address] [place] Lymphocytes/100 WBC (Bld) 20.6 % Normal [facility] Comment on above: Order Comment: Speci men Type: BLOOD SPECIMENOrdering Facility: [facility] Address: [address] [place] [address] Performed By: #### 5 7021-8 ####[facility]PEPPERBL[facility] [id number] [place] [address] [place] MCH (RBC) [Entitic mass] 28.9 pg Normal 26.0-34.0 [facility] Comment on above: Order Comment: Speci men Type: BLOOD SPECIMENOrdering Facility: [facility] Address: [address] [place] [address] Performed By: #### 5 7021-8 ####[facility] PEMBROKENCMichael [id number] [place] [address] [place] MCHC (RBC) [Mass/Vol] 33.3 g/dL Normal 30.5-36.0 [facility] Comment on above: Order Comment: Speci men Type: BLOOD SPECIMENOrdering Facility: [facility] Address: [address] [place] [address] Performed By: #### 5 7021-8 ####[facility] PEMBROKENCLIMichael [id number] [place] [address] [place] MCV (RBC) [Entitic vol] 86.6 fL Normal 80.0-100.0 [facility] Comment on above: Order Comment: Speci men Type: BLOOD SPECIMENOrdering Facility: [facility] Address: [address] [place] [address] Performed By: #### 5 7021-8 ####[facility] PEMBROKENCLI [id number] [place] [address] [place] Monocytes (Bld) [#/Vol] 0.98 10*3/uL High <0.87 [facility] Comment on above: Order Comment: Speci men Type: BLOOD SPECIMENOrdering Facility: [facility] Address: [address] [place] [address] Performed By: #### 5 7021-8 ####[facility] ERA [id number] [place] [address] [place] Monocytes/100 WBC (Bld) 8.2 % Normal [facility] Comment on above: Order Comment: Speci men Type: BLOOD SPECIMENOrdering Facility: [facility] Address: [address] [place] [address] Performed By: #### 5 7021-8 ####[facility] [id number] [place] [address] [place] Neutrophils (Bld) [#/Vol] 8.22 10*3/uL High 1.45-7.50 [facility] Comment on above: Order Comment: Speci men Type: BLOOD SPECIMENOrdering Facility: [facility] Address: [address] [place] [address] Performed By: #### 5 7021-8 ####[facility] ERA [id number] [place] [address] [place] Neutrophils/100 WBC (Bld) 68.9 % Normal [facility] Comment on above: Order Comment: Speci men Type: BLOOD SPECIMENOrdering Facility: [facility] Address: [address] [place] [address] Performed By: #### 5 7021-8 ####[facility] ERA [id number] [place] [address] [place] Nucleated RBC (Bld) [#/Vol] 10*3/uL Normal <0.01 [facility] Comment on above: Order Comment: Speci men Type: BLOOD SPECIMENOrdering Facility: [facility] Address: [address] [place] [address] Performed By: #### 5 7021-8 ####[facility] TODDNCLIA [id number] [place] [address] [place] Nucleated RBC/100 WBC (Bld) [Ratio] 0.0 /100 WBC Normal [facility] Comment on above: Order Comment: Speci men Type: BLOOD SPECIMENOrdering Facility: [facility] Address: [address] [place] [address] Performed By: #### 5 7021-8 ####[facility] PEMBROKENCLIA [id number] [place] [address] [place] Platelet mean volume (Bld) [Entitic vol] 9.0 fL Normal 9.0-12.7 [facility] Comment on above: Order Comment: Speci men Type: BLOOD SPECIMENOrdering Facility: [facility] Address: [address] [place] [address] Performed By: #### 5 7021-8 ####[facility] PEMBROKENCLIA [id number] [place] [address] [place] Platelets (Bld) [#/Vol] 354 10*3/uL Normal 150-400 [facility] Comment on above: Order Comment: Speci men Type: BLOOD SPECIMENOrdering Facility: [facility] Address: [address] [place] [address] Performed By: #### 5 7021-8 ####[facility] PEMBROKENCLIA [id number] [place] [address] [place] RBC (Bld) [#/Vol] 3.50 10*6/uL Low 3.90-5.20 [facility] Comment on above: Order Comment: Speci men Type: BLOOD SPECIMENOrdering Facility: [facility] Address: [address] [place] [address] Performed By: #### 5 7021-8 ####[facility] PEMBROKENCLIA [id number] [place] [address] [place] WBC (Bld) [#/Vol] 11.92 10*3/uL High 3.70-11.00 [facility] Comment on above: Order Comment: Speci men Type: BLOOD SPECIMENOrdering Facility: [facility] Address: [facility] [place] [address] Performed By: #### 5 7021-8 ####[facility] S[facility] [id number] [place] [id number] [place] CNOVon 07-09-2025 CNOV Office Visit (ALLEST ) ----- JENNIFER HENLEY ([id number]) 1995 F Date Time Provider Department 07/09/25 1:30 PM TAYLOR WOOTEN During your visit today, we recorded the following information about you: Pulse Weight 94/minute 108.1 kg Taylor Wooten APRN.CHIEF PHARMACIST 07/09/2025 4:12 PM Signed [facility] Allergy AND Clinical Immunology HPI Jennifer Henley [...] evaluation in the context of Taylor Wooten APRN.CHIEF PHARMACIST Interim History Patient is 32 weeks . [...] devices as directed. Blood-Glucose Meter,Continuous (DEXCOM G7 OIL TESTER) misc 1 device as directed. blood sugar [...] life threateni (more content not included)... Normal [facility] 06-25-2025 [facility] Telephone ([facility]) ----- JENNIFER HENLEY ([id number]) 1995 F Date Time Provider Department 06/25/25 JOY DENNISON [facility] During your visit today, we recorded the following information about you: Joy Dennison, RD 06/25/2025 3:[address] Valencia, Pt is interested in a CGM to help manage her blood sugars. Dexcom 7 sensors, disp: 3 per month, epic code [id number] Thank you, Joy Dennison RDN, LD, [facility] SERVICESNeli Hastings MD 06/29/2025 9:23 AM Signed done. Keisha Gonzalez MA 07/06/2025 3:27 PM Signed Spoke with prior authorization dept to check status, they stated it was still under review, but it is going to be expedited and we will receive a fax with outcome in 36 hours. NIKA Kunz Trisha, RN 07/06/2025 3:42 PM Signed Received denial for the Dexcom7 sensor. [employer] message sent. Document states: We denied your [...] 3 eachRfl: 7 Blood-Glucose Meter,Continuous (DEXCOM G7 OIL TESTER) misc1 device as directed.Disp: 1 eachRfl: 0 Prescriptions as of 07/06/2025 - Blood-Glucose Sensor (DEXCOM G7 SENSOR) joni 3 devices as directed. - Blood-Glucose Meter,Continuous (DEXCOM G7 OIL TESTER) misc 1 device as directed. - ferrous [...] Misc Si devices as directed. DEXCOM G7 OIL TESTER 1 ea* 0 06/29/2025 Route: Misc Si device as directed. Encounter Status:Closed by EULALIA RONDON on 07/02/25 [facility] CNNURSEon 06-24-2025 [facility] ----- JENNIFER HENLEY ([id number]) 1995 F Date Time Provider Department 06/24/25 8:00 AM BRE ZAMORA During your visit today, we recorded the following information about you: Bre Zamora, RN 06/24/2025 9:36 AM Signed DIABETES SELF-MANAGEMENT EDUCATION AND SUPPORT Location: [place] Type of visit: Virtual (with video) individual -- I have communicated my name and active licensure. The patient's identity and physical location were verified at the time of this visit. Either the patient or their legal field representative has been informed of the risks and benefits of -- and alternatives to -- treatment through a remote evaluation and consents to proceed with the evaluation remotely. 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 Patient states he/she is located at home/work and is the [facility] for duration of this visit. 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 Normal [facility] 06-21-2025 CNPN Telephone (OBGYWM) ----- JORGEJENNIFER ([id number]) 1995 F Date Time Provider Department 06/21/25 [...] results, verbalizes understanding of instructions. Transferred to [facility] to schedule consult appointments. Eulalia Rondon RN [...] eachRfl: 8 CONSULT TO DIABETES EDUCATION DSME [[id number]] Order #: [id number]: 2 FUTURE ENDOCRINOLOGY DIETITIAN VISIT (MNT) [[id number]] Order #: [id number]: 4 FUTURE Prescriptions as of 06/21/2025 - [...] Status:Closed by EULALIA RONDON on 06/21/25 Normal [facility] GLUCOSE GESTATIONAL, 1 HOURo n 06-19-2025 Glucose 1 Hr post Unsp challenge [Mass/Vol] 191 mg/dL High 74-179 [facility] Comment on above: Order Comment: Fredy mancuso Type: BLOOD SPECIMENOrdering Facility: [facility] Address: [address] [place] [address] Result Comment: [facility] Congress of Obstetricians and Gynecologists (Connie/Norma) guidelines state gestational diabetes mellitus is present when 2 or more of the plasma glucose concentrations meet or exceed the following levels: fastin mg/dl, 1 hr: 180 mg/dl, 2 hr: 155 mg/dl, and 3 hr: 140 mg/dl. Performed By: #### G TGST1 ####[facility] LABCLIA [id number] [address] [place] GLUCOSE GESTATIONAL, 2 HOURo n 06-19-2025 Glucose 2 Hr post Unsp challenge [Mass/Vol] 168 mg/dL High 74-154 [facility] Comment on above: Order Comment: Mikeli jamee Type: BLOOD SPECIMENOrdering Facility: [facility] Address: [facility] [place] [address] Result Comment: [facility] Congress of Obstetricians and Gynecologists (Connie/Norma) guidelines state gestational diabetes mellitus is present when 2 or more of the plasma glucose concentrations meet or exceed the following levels: fastin mg/dl, 1 hr: 180 mg/dl, 2 hr: 155 mg/dl, and 3 hr: 140 mg/dl. Performed By: #### G TGST2 ####[facility] LABCLIA [id number] [place] [address] [place] GLUCOSE GESTATIONAL, 3 HOURo n 06-19-2025 Glucose 3 Hr post Unsp challenge [Mass/Vol] 85 mg/dL Normal 74-139 [facility] Comment on above: Order Comment: Specremberto mancuso Type: BLOOD SPECIMENOrdering Facility: [facility] Address: [address] [place] [address] Result Comment: [facility] Congress of Obstetricians and Gynecologists (Connie/Norma) guidelines state gestational diabetes mellitus is present when 2 or more of the plasma glucose concentrations meet or exceed the following levels: fastin mg/dl, 1 hr: 180 mg/dl, 2 hr: 155 mg/dl, and 3 hr: 140 mg/dl. Performed By: #### G TGST3 ####[facility] LABCLIA [id number] [address] [place] GLUCOSE GESTATIONAL, FASTING on 06-19-2025 Glucose post fast [Mass/Vol] 91 mg/dL Normal 74-94 [facility] Comment on above: Order Comment: Fredy mancuso Type: BLOOD SPECIMEN [facility] Address: [address] [place] [address] Result Comment: [facility] Congress of Obstetricians and Gynecologists (Connie/Norma) guidelines state gestational diabetes mellitus is present when 2 or more of the plasma glucose concentrations meet or exceed the following levels: fastin mg/dl, 1 hr: 180 mg/dl, 2 hr: 155 mg/dl, and 3 hr: 140 mg/dl. Performed By: #### 2 842-3 #### [facility] LAB CLIA [id number] [address] [place], [place] [address]K [address] [place] CBC W Auto Differential pane l (Bld)on 06-11-2025 Basophils (Bld) [#/Vol] 0.08 10*3/uL Normal <0.11 [facility] Comment on above: Order Comment: Speci men Type: BLOOD SPECIMENOrdering Facility: [facility] Address: [address] [place] [address] Performed By: #### 5 7021-8 ####[facility] WALESKAMEIRLIA [id number] [place] [address] [place] Basophils/100 WBC (Bld) 0.6 % Normal [facility] Comment on above: Order Comment: Speci men Type: BLOOD SPECIMENOrdering Facility: [facility] Address: [address] [place] [address] Performed By: #### 5 7021-8 ####[facility] ERA [id number] [place] [address] [place] Differential cell count method Nom (Bld) Auto Normal [facility] Comment on above: Order Comment: Speci men Type: BLOOD SPECIMENOrdering Facility: [facility] Address: [address] [place] [address] Performed By: #### 5 7021-8 ####[facility] ERA [id number] [place] [address] [place] Eosinophils (Bld) [#/Vol] 0.24 10*3/uL Normal <0.46 [facility] Comment on above: Order Comment: Speci men Type: BLOOD SPECIMENOrdering Facility: [facility] Address: [address] [place] [address] Performed By: #### 5 7021-8 ####[facility]INGWNCLIA [id number] [place] [address] [place] Eosinophils/100 WBC (Bld) 1.7 % Normal [facility] Comment on above: Order Comment: Speci men Type: BLOOD SPECIMENOrdering Facility: [facility] Address: [address] [place] [address] Performed By: #### 5 7021-8 ####[facility] PEMBROKENCLIMichael [id number] [place] [address] [place] Erythrocyte distribution width (RBC) [Ratio] 13.4 % Normal 11.5-15.0 [facility] Comment on above: Order Comment: Speci men Type: BLOOD SPECIMENOrdering Facility: [facility] Address: [address] [place] [address] Performed By: #### 5 7021-8 ####[facility] PEMBROKERODRICK [id number] [place] [address] [place] Hematocrit (Bld) [Volume fraction] 31.7 % Low 36.0-46.0 [facility] Comment on above: Order Comment: Speci men Type: BLOOD SPECIMENOrdering Facility: [facility] Address: [address] [place] [address] Performed By: #### 5 7021-8 ####[facility] PEMBROKEPEPPERLI [id number] [place] [address] [place] Hemoglobin (Bld) [Mass/Vol] 10.4 g/dL Low 11.5-15.5 [facility] Comment on above: Order Comment: Speci men Type: BLOOD SPECIMENOrdering Facility: [facility] Address: [address] [place] [address] Performed By: #### 5 7021-8 ####[facility] PEMBROKEPEPPERLIMichael [id number] [place] [address] [place] Immature granulocytes (Bld) [#/Vol] 0.13 10*3/uL High <0.10 [facility] Comment on above: Order Comment: Speci men Type: BLOOD SPECIMENOrdering Facility: [facility] Address: [address] [place] [address] Performed By: #### 5 7021-8 ####[facility] PEMBROKENCLIA [id number] [place] [address] [place] Immature granulocytes/100 WBC (Bld) 0.9 % Normal [facility] Comment on above: Order Comment: Speci men Type: BLOOD SPECIMENOrdering Facility: [facility] Address: [address] [place] [address] Performed By: #### 5 7021-8 ####[facility]ENC[facility] [id number] [place] [address] [place] Lymphocytes (Bld) [#/Vol] 3.12 10*3/uL Normal 1.00-4.00 [facility] Comment on above: Order Comment: Speci men Type: BLOOD SPECIMENOrdering Facility: [facility] Address: [address] [place] [address] Performed By: #### 5 7021-8 ####[facility] [id number] [place] [address] [place] Lymphocytes/100 WBC (Bld) 21.7 % Normal [facility] Comment on above: Order Comment: Speci men Type: BLOOD SPECIMENOrdering Facility: [facility] Address: [address] [place] [address] Performed By: #### 5 7021-8 ####[facility] PEMBROKENCLI [id number] [place] [address] [place] MCH (RBC) [Entitic mass] 29.9 pg Normal 26.0-34.0 [facility] Comment on above: Order Comment: Speci men Type: BLOOD SPECIMENOrdering Facility: [facility] Address: [address] [place] [address] Performed By: #### 5 7021-8 ####[facility] [id number] [place] [address] [place] MCHC (RBC) [Mass/Vol] 32.8 g/dL Normal 30.5-36.0 [facility] Comment on above: Order Comment: Speci men Type: BLOOD SPECIMENOrdering Facility: [facility] Address: [address] [place] [address] Performed By: #### 5 7021-8 ####[facility] WALESKANEW ORLEANSRODRICK [id number] [place] [address] [place] MCV (RBC) [Entitic vol] 91.1 fL Normal 80.0-100.0 [facility] Comment on above: Order Comment: Speci men Type: BLOOD SPECIMENOrdering Facility: [facility] Address: [address] [place] [address] Performed By: #### 5 7021-8 ####[facility] [id number] [place] [address] [place] Monocytes (Bld) [#/Vol] 0.86 10*3/uL Normal <0.87 [facility] Comment on above: Order Comment: Speci men Type: BLOOD SPECIMENOrdering Facility: [facility] Address: [address] [place] [address] Performed By: #### 5 7021-8 ####[facility] PEMBROKENCLIA [id number] [place] [address] [place] Monocytes/100 WBC (Bld) 6.0 % Normal [facility] Comment on above: Order Comment: Speci men Type: BLOOD SPECIMENOrdering Facility: [facility] Address: [address] [place] [address] Performed By: #### 5 7021-8 ####[facility] PEMBROKENCLIA [id number] [place] [address] [place] Neutrophils (Bld) [#/Vol] 9.97 10*3/uL High 1.45-7.50 [facility] Comment on above: Order Comment: Speci men Type: BLOOD SPECIMENOrdering Facility: [facility] Address: [address] [place] [address] Performed By: #### 5 7021-8 ####[facility] WALESKAMEIRLIA [id number] [place] [address] [place] Neutrophils/100 WBC (Bld) 69.1 % Normal [facility] Comment on above: Order Comment: Speci men Type: BLOOD SPECIMENOrdering Facility: [facility] Address: [address] [place] [address] Performed By: #### 5 7021-8 ####[facility] PEMBROKEPEPPERMichael [id number] [place] [address] [place] Nucleated RBC (Bld) [#/Vol] 10*3/uL Normal <0.01 [facility] Comment on above: Order Comment: Speci men Type: BLOOD SPECIMENOrdering Facility: [facility] Address: [address] [place] [address] Performed By: #### 5 7021-8 ####[facility] [id number] [place] [address] [place] Nucleated RBC/100 WBC (Bld) [Ratio] 0.0 /100 WBC Normal [facility] Comment on above: Order Comment: Speci men Type: BLOOD SPECIMENOrdering Facility: [facility] Address: [address] [place] [address] Performed By: #### 5 7021-8 ####[facility]OSPITALKIYA [id number] [place] [address] [place] Platelet mean volume (Bld) [Entitic vol] 9.3 fL Normal 9.0-12.7 [facility] Comment on above: Order Comment: Speci men Type: BLOOD SPECIMENOrdering Facility: [facility] Address: [address] [place] [address] Performed By: #### 5 7021-8 ####[facility] PEMBROKENCLI [id number] [place] [address] [place] Platelets (Bld) [#/Vol] 394 10*3/uL Normal 150-400 [facility] Comment on above: Order Comment: Speci men Type: BLOOD SPECIMENOrdering Facility: [facility] Address: [address] [place] [address] Performed By: #### 5 7021-8 ####[facility] PEMBROKENCLIA [id number] [place] [address] [place] RBC (Bld) [#/Vol] 3.48 10*6/uL Low 3.90-5.20 [facility] Comment on above: Order Comment: Speci men Type: BLOOD SPECIMENOrdering Facility: [facility] Address: [address] [place] [address] Performed By: #### 5 7021-8 ####[facility] PEMBROKENCA [id number] [place] [address] [place] WBC (Bld) [#/Vol] 14.40 10*3/uL High 3.70-11.[address] [facility] Comment on above: Order Comment: Speci men Type: BLOOD SPECIMENOrdering Facility: [facility] Address: [address] [place] [address] Performed By: #### 5 7021-8 ####[facility] PEMBROKENCLIA [id number] [place] [address] [place] Ferritin SerPl-mCncon 2024 Ferritin [Mass/Vol] 8.0 ng/mL Low 14.7-205.1 [facility] Comment on above: Order Comment: Speci men Type: BLOOD SPECIMENOrdering Facility: [facility] Address: [address] [place] [address] Performed By: #### 5 0190-8, 2276-4 ####[facility] LABCLIA [id number] [place] [address] [place] GESTATIONAL GLUCOSE SCREEN, 1-HOUR, 50 GRAM, NON-FASTINGon 06-11-2025 Glucose [Mass/Vol] 181 mg/dL High 74-134 [facility] Comment on above: Order Comment: Fredy mancuso Type: BLOOD SPECIMEN [facility] Address: [address] [place] [address] Result Comment: [facility] Congress of Obstetricians and Gynecologists (Connie/Norma) guidelines state a gestational diabetes mellitus positive screen is made, in women not previously diagnosed with overt diabetes, when the 1 hr plasma glucose level is equal to or above 140 mg/dL. [facility] [employer] and [facility] recommends a 135 mg/dL cutoff. Performed By: #### G LTGST #### [facility] CLIA [id number] [address] [place] [address] [place] [employer] binding capaci ty panelon 06-11-2025 Iron [Mass/Vol] 26 ug/dL Low 41-186 [facility] [facility] Comment on above: Order Comment: Fredy mancuso Type: BLOOD SPECIMENOrdering Facility: [facility] Address: [address] [place] [address] Performed By: #### 5 0190-8, 6-4 ####[facility] LABCLIA [id number] [place] [address] [place] Iron binding capacity [Mass/Vol] >526 High 232-386 [facility] Comment on above: Order Comment: Fredy mancuso Type: BLOOD SPECIMENOrdering Facility: [facility] Address: [address] [place] [address] Performed By: #### 5 0190-8, 6-4 ####[facility] LABCLIA [id number] [place] [id number] [place] Iron/TIBC [Molar ratio] <4.9 Low 15.0-57.0 [facility] Comment on above: Order Comment: Fredy mancuso Type: BLOOD SPECIMENOrdering Facility: [facility] Address: [address] [place] [address] Performed By: #### 5 0190-8, 2276-4 ####[facility] LABIA [id number] [place] [address] [place] Reagin and Treponema pallidu m IgG and IgM [Interp]on 06-11-2025 T. pallidum IgG+IgM IA Ql (S) Non-Reactive Normal Nonreactive [facility] Comment on above: Order Comment: Speci men Type: BLOOD SPECIMENOrdering Facility: [facility] Address: [address] [place] [address] Performed By: #### 7 3752-8 ####[facility] [id number] [place] [address] [place] Reagin+T pallidum IgG+IgM Se rPl-Impon 06-11-2025 Reagin and Treponema pallidum IgG and IgM [Interp] Cannot exclude recent Treponemal infection if specimen collected within 7-10 days after appearance of suspect lesions or 2-3 weeks after an exposure. Clinical correlation is required. Normal [facility] Comment on above: Order Comment: Speci men Type: BLOOD SPECIMENOrdering Facility: [facility] Address: [address] [place] [address] Performed By: #### 7 3752-8 ####[facility] [id number] [address] [facility] CNOVon 06-04-2025 CNOV Office Visit (ASHLEY ) ----- JENNIFER HENLEY ([id number]) 1995 F Date Time Provider Department 06/04/25 8:30 AM TAYLOR WOOTEN During your visit today, we recorded the following information about you: Pulse Weight 107/minute 108.4 kg Taylor Wooten APRN.CNP 06/04/2025 12:25 PM Signed [facility] Allergy AND Clinical Immunology This is a request for consultation by Lorraine Roldan APRN.CNM for an opinion regarding penicillin allergy. My final recommendations will be communicated back to the requesting physician by way of shared medical record or letter to the requesting physician via [place] mail. Chief Complaint: Penicillin allergy Historian: Patient HPI Jennifer Henley is a 29 year [...] of Jose (more content not included)... Normal [facility] No Panel Informationon 06-04 ANTIBIOTIC PERCUTANE [...] = 0 mm F = 0 mm [facility] 5390-7564-72 Lot [id number] Exp 05/2027 PREPEN -(benzylpenicilloyl polylysine) full strength P: W = 0 mm F = 0mm ID: W = 0 mm F = 0 mm [facility] 54647-686-90 Lot [id number] 03/2026 AMPICILLIN SODIUM 12.5mg/ml P: W = 0 mm F = 0mm ID: W = 0 mm F = 0 mm [facility] 9949-4703-27 Lot [id number] 11/2026 HISTAMINE- positive control (Histamine base 6mg/ml)for Prick and 0.1 mg/ml for intradermal P: W = 4 mm F = 10 mm ID:W = 7 mm F = 12 mm [facility] No Panel InformationOrdered By: Evelyn Travis on 06-04-2025 [facility] Examination level ultrasound on 04-16-2025 Indication [...] Placenta: Placental site: anterior, low lying. Placental spwn-kq-xczqmizq os distance 4 mm Umbilical cord: Cord [...] 11 oz EFW by: Hadlock (HC-AC-FL) [employer] 7.3 mm CM 5.8 mm 75% Nicolaides [...] normal LVOT view: normal 3-vessel view: normal 8-kinhef-dwmvymx view: normal Heart / Thorax Situs: situs [...] By: Eulalia Munoz RDMS, RVT Read By: Ken Boucher M.D. MATERNAL MEDICINE [facility] Radiology Study observation (narrative) [facility] Bacteria identifiedon 2024 Bacteria identified Cx Nom (U) Test: Urine Culture Specimen Source: Clean Catch/Voided Specimen Type: Urine Specimen Date: 03/23/2025 1010 Result Date: 03/25/2025 0851 Result Status: Final result Abnormal: No Resulting Lab: [facility] [place] [facility] [address] [place] [address] CULTURE No growth Normal [facility] Comment on above: Performed By: #### 6 30-4 #### JOHN Longo ([id number]) [facility] [place] ([facility]) [address] [place] [address] CBC W Auto Differential pane l (Bld)on 03-23-2025 Basophils (Bld) [#/Vol] 0.05 10*3/uL [facility] Basophils/100 WBC (Bld) 0.4 % 0.0 - 2.0 % [facility] Eosinophils (Bld) [#/Vol] 0.13 10*3/uL [facility] Eosinophils/100 WBC (Bld) 1.2 % 0.0 - 6.0 % [facility] Erythrocyte distribution width (RBC) [Ratio] 13.4 % 11.5 - 14.5 % [facility] Hematocrit (Bld) [Volume fraction] 34.8 % Low 36.0 - 46.0 % [facility] Hemoglobin (Bld) [Mass/Vol] 11.4 g/dL Low 12.0 - 16.0 g/dL [facility] Immature granulocytes (Bld) [#/Vol] 0.05 10*3/uL [facility] Immature granulocytes/100 WBC (Bld) 0.4 % 0.0 - 0.9 % [facility] Comment on above: Immature Granulocyte Count (IG) includes promyelocytes, myelocytes and metamyelocytes but does not include bands. Percent differential counts (%) should be interpreted in the context of the absolute cell counts (cells/UL). Interpretation and review of laboratory results Abnormal [facility] Lymphocytes (Bld) [#/Vol] 2.6 10*3/uL [facility] Lymphocytes/100 WBC (Bld) 23 % 13.0 - 44.0 % [facility] MCH (RBC) [Entitic mass] 29.8 pg 26.0 - 34.0 pg [facility] MCHC (RBC) [Mass/Vol] 32.8 g/dL 32.0 - 36.0 g/dL [facility] MCV (RBC) [Entitic vol] 91 fL 80 - 100 fL [facility] Monocytes (Bld) [#/Vol] 0.75 10*3/uL [facility] Monocytes/100 WBC (Bld) 6.6 % 2.0 - 10.0 % [facility] Neutrophils (Bld) [#/Vol] 7.7 10*3/uL [facility] Comment on above: Percent differential counts (%) should be interpreted in the context of the absolute cell counts (cells/uL). Neutrophils/100 WBC (Bld) 68.4 % 40.0 - 80.0 % [facility] Nucleated RBC/100 WBC (Bld) [Ratio] 0 % [facility] Platelets (Bld) [#/Vol] 350 10*3/uL [facility] RBC (Bld) [#/Vol] 3.82 10*6/uL Low [facility] ([facility]ld) [#/Vol] 11.3 10*3/[facility] Basophils (Bld) [#/Vol] 0.05 x10*3/uL Normal 0.00-0.10 [facility] Comment on above: Performed By: #### 5 7021-8 #### FRANKY SIBLEY ([id number]) [facility] ([facility]) [address] [place] [address] 10297 Basophils/100 WBC (Bld) 0.4 % Normal 0.0-2.0 [facility] Comment on above: Performed By: #### 5 7021-8 #### FRANKY SIBLEY ([id number]) [facility] ([facility]) [address] [place] [address] 07114 Eosinophils (Bld) [#/Vol] 0.13 x10*3/uL Normal 0.00-0.70 [facility] Comment on above: Performed By: #### 5 7021-8 #### FRANKY SIBLEY ([id number]) [facility] ([facility]) [address] [place] [address] 48099 Eosinophils/100 WBC (Bld) 1.2 % Normal 0.0-6.0 [facility] Comment on above: Performed By: #### 5 7021-8 #### FRANKY SIBLEY ([id number]) [facility] ([facility]) [address] [place] [address] 99604 Erythrocyte distribution width (RBC) [Ratio] 13.4 % Normal 11.5-14.5 [facility] Comment on above: Performed By: #### 5 7021-8 #### FRANKY SIBLEY ([id number]) [facility] ([facility]) [address] [place] [address] 30181 Hematocrit (Bld) [Volume fraction] 34.8 % Low 36.0-46.0 [facility] Comment on above: Performed By: #### 5 7021-8 #### FRANKY SIBLEY ([id number]) [facility] ([facility]) [address] [place] [address] 05401 Hemoglobin (Bld) [Mass/Vol] 11.4 g/dL Low 12.0-16.0 [facility] Comment on above: Performed By: #### 5 7021-8 #### FRANKY SIBLEY ([id number]) [facility] ([facility]) [address] [place] [address] 52120 Immature granulocytes (Bld) [#/Vol] 0.05 x10*3/uL Normal 0.00-0.70 [facility] Comment on above: Performed By: #### 5 7021-8 #### FRANKY SIBLEY ([id number]) [facility] ([facility]) [address] [place] [address] 45093 Immature granulocytes/100 WBC (Bld) 0.4 % Normal 0.0-0.9 [facility] Comment on above: Result Comment: Sylwia ture Granulocyte Count (IG) includes promyelocytes, myelocytes and metamyelocytes but does not include bands. Percent differential counts (%) should be interpreted in the context of the absolute cell counts (cells/UL). Performed By: #### 5 7021-8 #### FRANKY SIBLEY ([id number]) [facility] ([facility]) [address] [place] [address] 63115 Lymphocytes (Bld) [#/Vol] 2.60 x10*3/uL Normal 1.20-4.80 [facility] Comment on above: Performed By: #### 5 7021-8 #### FRANKY SIBLEY ([id number]) [facility] ([facility]) [address] [place] [address] 60267 Lymphocytes/100 WBC (Bld) 23.0 % Normal 13.0-44.0 [facility] Comment on above: Performed By: #### 5 7021-8 #### FRANKY SIBLEY ([id number]) [facility] ([facility]) [address] [place] [address] MCH (RBC) [Entitic mass] 29.8 pg Normal 26.0-34.0 [facility] Comment on above: Performed By: #### 5 7021-8 #### FRANKY SIBLEY ([id number]) [facility] ([facility]) [address] [place] [address] MCHC (RBC) [Mass/Vol] 32.8 g/dL Normal 32.0-36.0 [facility] Comment on above: Performed By: #### 5 7021-8 #### FRANKY SIBLEY ([id number]) [facility] ([facility]) [address] [place] [address] MCV (RBC) [Entitic vol] 91 fL Normal 80-100 [facility] Comment on above: Performed By: #### 5 7021-8 #### FRANKY SIBLEY ([id number]) [facility] ([facility]) [address] [place] [address] 40796 Monocytes (Bld) [#/Vol] 0.75 x10*3/uL Normal 0.10-1.00 [facility] Comment on above: Performed By: #### 5 7021-8 #### FRANKY SIBLEY ([id number]) [facility] ([facility]) [address] [place] [address] 89333 Monocytes/100 WBC (Bld) 6.6 % Normal 2.0-10.0 [facility] Comment on above: Performed By: #### 5 7021-8 #### FRANKY SIBLEY ([id number]) [facility] ([facility]) [address] [place] [address] 00688 Neutrophils (Bld) [#/Vol] 7.70 x10*3/uL Normal 1.20-7.70 [facility] Comment on above: Result Comment: Perc ent differential counts (%) should be interpreted in the context of the absolute cell counts (cells/uL). Performed By: #### 5 7021-8 #### FRANKY SIBLEY ([id number]) [facility] ([facility]) [address] [place] [address] 15570 Neutrophils/100 WBC (Bld) 68.4 % Normal 40.0-80.0 [facility] Comment on above: Performed By: #### 5 7021-8 #### FRANKY SIBLEY ([id number]) [facility] ([facility]) [address] [place] [address] 56230 Nucleated RBC/100 WBC (Bld) [Ratio] 0.0 /100 WBCs Normal 0.0-0.0 [facility] Comment on above: Performed By: #### 5 7021-8 #### FRANKY SIBLEY ([id number]) [facility] ([facility]) [address] [place] [address] 38499 Platelets (Bld) [#/Vol] 350 x10*3/uL Normal 150-450 [facility] Comment on above: Performed By: #### 5 7021-8 #### FRANKY SIBLEY ([id number]) [facility] ([facility]) [address] [place] [address] 67445 RBC (Bld) [#/Vol] 3.82 x10*6/uL Low 4.00-5.20 [facility] Comment on above: Performed By: #### 5 7021-8 #### FRANKY SIBLEY ([id number]) [facility] ([facility]) [address] [place] [address] 74726 WBC (Bld) [#/Vol] 11.3 x10*3/uL Normal 4.4-11.3 [facility] Comment on above: Performed By: #### 5 7021-8 #### FRANKY SIBLEY ([id number]) [facility] ([facility]) [address] [place] [address] 57429 Comprehensive metabolic 2000 panelon 03-23-2025 Albumin BCP dye [Mass/Vol] 3.8 g/dL 3.4 - 5.0 g/dL [facility] ALP [Catalytic activity/Vol] 44 U/L 33 - 110 U/L [facility] ALT With P-5'-P [Catalytic activity/Vol] 12 U/L 7 - 45 U/L [facility] Comment on above: Patients treated wit h Sulfasalazine may generate falsely decreased results for ALT. Anion gap [Moles/Vol] 11 mmol/L 10 - 20 mmol/L [facility] AST With P-5'-P [Catalytic activity/Vol] 13 U/L 9 - 39 U/L [facility] Bilirubin [Mass/Vol] 0.3 mg/dL 0.0 - 1 .2 mg/dL [facility] Calcium [Mass/Vol] 8.9 mg/dL 8.6 - 10. 3 mg/dL [facility] Chloride [Moles/Vol] 105 mmol/L 98 - 10 7 mmol/L [facility] CO2 [Moles/Vol] 23 mmol/L 21 - 32 mmol/L [facility] Creatinine [Mass/Vol] 0.63 mg/dL 0.50 - 1.05 mg/dL [facility] eGFR - PINF [facility] Comment on above: Calculations of evelyn mated GFR are performed using the 2020 CKD-EPI Study Refit equation without the race variable for the IDMS-Traceable creatinine methods. https://jasn.asnjournals.org/content/early/ASN.6427585 988 Glucose [Mass/Vol] 134 mg/dL High 74 - 99 mg/dL [facility] Interpretation and review of laboratory results Abnormal [facility] Potassium [Moles/Vol] 3.7 mmol/L 3.5 - 5.3 mmol/L [facility] Protein [Mass/Vol] 6.8 g/dL 6.4 - 8.2 g/dL [facility] Sodium [Moles/Vol] 135 mmol/L Low 136 - 145 mmol/L [facility] Urea nitrogen [Mass/Vol] 11 mg/dL 6 - 23 mg/dL [facility] Albumin BCP dye [Mass/Vol] 3.8 g/dL Normal 3.4-5.0 [facility] Comment on above: Performed By: #### 2 4323-8 #### WILKINS MARYJO ([id number]) [facility] ([facility]) [address] [place] [address] ALP [Catalytic activity/Vol] 44 U/L Normal 33-110 [facility] Comment on above: Performed By: #### 2 4323-8 #### FRANKY SIBLEY ([id number]) [facility] ([facility]) [address] [place] [address] ALT With P-5'-P [Catalytic activity/Vol] 12 U/L Normal 7-45 [facility] Comment on above: Result Comment: Tori ents treated with Sulfasalazine may generate falsely decreased results for ALT. Performed By: #### 2 432-8 #### FRANKY SIBLEY ([id number]) [facility] ([facility]) [address] [place] [address] 50547 Anion gap [Moles/Vol] 11 mmol/L Normal 10-20 [facility] Comment on above: Performed By: #### 2 4322-8 #### FRANKY SIBLEY ([id number]) [facility] ([facility]) [address] [place] [address] AST With P-5'-P [Catalytic activity/Vol] 13 U/L Normal 9-39 [facility] Comment on above: Performed By: #### 2 432-8 #### FRANKY SIBLEY ([id number]) [facility] ([facility]) [address] [place] [address] Bilirubin [Mass/Vol] 0.3 mg/dL Normal 0.0-1.2 [facility] Comment on above: Performed By: #### 2 432-8 #### FRANKY SIBLEY ([id number]) [facility] ([facility]) [address] [place] [address] Calcium [Mass/Vol] 8.9 mg/dL Normal 8.6-10.3 [facility] Comment on above: Performed By: #### 2 432-8 #### FRANKY SIBLEY ([id number]) [facility] ([facility]) [address] [place] [address] 40799 Chloride [Moles/Vol] 105 mmol/L Normal 98-107 [facility] Comment on above: Performed By: #### 2 4323-8 #### FRANKY SIBLEY ([id number]) [facility] ([facility]) [address] [place] [address] 01117 CO2 [Moles/Vol] 23 mmol/L Normal 21-32 [facility] Comment on above: Performed By: #### 2 4323-8 #### FRANKY SIBLEY ([id number]) [facility] ([facility]) [address] [place] [address] 78783 Creatinine [Mass/Vol] 0.63 mg/dL Normal 0.50-1.05 [facility] Comment on above: Performed By: #### 2 4323-8 #### FRANKY SIBLEY ([id number]) [facility] ([facility]) [address] [place] [address] 26207 GFR/1.73 sq M.predicted MDRD (S/P/Bld) [Vol rate/Area] mL/min/{1.73_m2} Normal >60 [facility] Comment on above: Result Comment: Calc ulations of estimated GFR are performed using the 2020 CKD-EPI Study Refit equation without the race variable for the IDMS-Traceable creatinine methods. https://jasn.asnjournals.org/content/early/ASN.2524349 988 Performed By: #### 2 4323-8 #### FRANKY SIBLEY ([id number]) [facility] ([facility]) [address] [place] [address] 94133 Glucose [Mass/Vol] 134 mg/dL High 74-99 [facility] Comment on above: Performed By: #### 2 4323-8 #### FRANKY SIBLEY ([id number]) [facility] ([facility]) [address] [place] [address] 43921 Potassium [Moles/Vol] 3.7 mmol/L Normal 3.5-5.3 [facility] Comment on above: Performed By: #### 2 4323-8 #### FRANKY SIBLEY ([id number]) [facility] ([facility]) [address] [place] [address] 42780 Protein [Mass/Vol] 6.8 g/dL Normal 6.4-8.2 [facility] Comment on above: Performed By: #### 2 4323-8 #### FRANKY SIBLEY ([id number]) [facility] ([facility]) [address] [place] [address] Sodium [Moles/Vol] 135 mmol/L Low 136-145 [facility] Comment on above: Performed By: #### 2 4323-8 #### FRANKY SIBLEY ([id number]) [facility] ([facility]) [address] [place], [place] [address] Urea nitrogen [Mass/Vol] 11 mg/dL Normal 6-23 [facility] Comment on above: Performed By: #### 2 4323-8 #### FRANKY SIBLEY ([id number]) [facility] ([facility]) [address] [place], [place] [address] Magnesiumon 03-23-2025 Magnesium [Mass/Vol] 1.88 mg/dL 1.60 - 2.40 mg/dL [facility] Magnesium [Mass/Vol] 1.88 mg/dL Normal 1.60-2.40 [facility] Comment on above: Performed By: #### 1 9123-9 #### FRANKY SIBLEY ([id number]) [facility] ([facility]) [address] [place] [address] Magnesium [Mass/Vol]on 03-23 Interpretation and review of laboratory results Normal [facility] No Panel Informationon 03-23 [facility] Interpretation and review of laboratory results Abnormal [facility] Urinalysis complete W Reflex Culture panel (U)on 03-23-2025 Appearance (U) Turbid Abnormal Clear [facility] Bilirubin (U) [Mass/Vol] Negative NEGATIVE mg/dL [facility] Color (U) Yellow Light-Yellow , Yellow, Dark-Yellow [facility] Glucose Auto test strip (U) [Mass/Vol] 30 (TRACE) Abnormal Normal mg/dL [facility] Ketones (U) [Mass/Vol] Negative NEGATIVE mg/dL [facility] Leukocyte esterase Auto test strip Ql (U) 500 Alex/uL Abnormal NEGATIVE [facility] Nitrite Auto test strip Ql (U) Negative NEGATIVE [facility] pH (U) 6 [pH] 5.0, 5.5, 6.0, 6.5, 7.0, 7.5, 8.0 [facility] Protein (U) [Mass/Vol] 50 (1+) Abnormal NEGATIVE, 10 (TRACE), 20 (TRACE) mg/dL [facility] RBC (U) [#/Vol] Negative NEGATIVE mg/dL [facility] Specific gravity (U) [Rel density] 1.035 1.005 - 1.035 [facility] Urobilinogen (U) [Mass/Vol] Normal Normal mg/dL [facility] Appearance (U) Turbid Normal Clear [facility] Comment on above: Performed By: #### 5 8077-9 #### FRANKY SIBLEY ([id number]) [facility] ([facility]) [address] [place] [address] Bilirubin (U) [Mass/Vol] Negative Normal NEGATIVE [facility] Comment on above: Performed By: #### 5 8077-9 #### FRANKY SIBLEY ([id number]) [facility] ([facility]) [address] [place] [address] 54198 Color (U) Yellow Normal Light-Yellow , Yellow, Dark-Yellow [facility] Comment on above: Performed By: #### 5 8077-9 #### FRANKY SIBLEY ([id number]) [facility] ([facility]) [address] [place] [address] 45894 Glucose Auto test strip (U) [Mass/Vol] 30 (TRACE) Abnormal Normal [facility] Comment on above: Performed By: #### 5 8077-9 #### FRANKY SIBLEY ([id number]) [facility] ([facility]) [address] [place] [address] 44173 Ketones (U) [Mass/Vol] Negative Normal NEGATIVE [facility] Comment on above: Performed By: #### 5 8077-9 #### FRANKY SIBLEY ([id number]) [facility] ([facility]) [address] [place] [address] 75772 Leukocyte esterase Auto test strip Ql (U) 500 Alex/uL Abnormal NEGATIVE [facility] Comment on above: Performed By: #### 5 8077-9 #### FRANKY SIBLEY ([id number]) [facility] ([facility]) [address] [place], [place] [address] Nitrite Auto test strip Ql (U) Negative Normal NEGATIVE [facility] Comment on above: Performed By: #### 5 8077-9 #### FRANKY SIBLEY ([id number]) [facility] ([facility]) [address] [place] [address] pH (U) 6.0 [pH] Normal 5.0, 5.5, 6.0, 6.5, 7.0, 7.5, 8.0 [facility] Comment on above: Performed By: #### 5 8077-9 #### FRANKY SIBELY ([id number]) [facility] ([facility]) [address] [place] [address] 45918 Protein (U) [Mass/Vol] 50 (1+) Abnormal NEGATIVE, 10 (TRACE), 20 (TRACE) [facility] Comment on above: Performed By: #### 5 8077-9 #### FRANKY SIBLEY ([id number]) [facility] ([facility]) [address] [place] [address] 10902 RBC (U) [#/Vol] Negative Normal NEGATIVE [facility] Comment on above: Performed By: #### 5 8077-9 #### FRANKY SIBLEY ([id number]) [facility] ([facility]) [address] [place] [address] 25945 Specific gravity (U) [Rel density] 1.035 Normal 1.005-1.035 [facility] Comment on above: Performed By: #### 5 8077-9 #### FRANKY SIBLEY ([id number]) [facility] ([facility]) [address] [place], [place] [id number] Urobilinogen (U) [Mass/Vol] Normal Normal Normal [facility] Comment on above: Performed By: #### [id number] #### FRANKY SIBLEY ([id number]) [facility] ([facility]) [address] [place] [address] Urinalysis microscopic panel Auto Ql (U)on 03-23-2025 Bacteria Auto (Urine sed) [#/Area] 3+ Abnormal NONE SEEN /HPF [facility] Epithelial cells.squamous Auto (Urine sed) [#/Area] 1-9 (SPARSE) Reference range not established. /HPF [facility] Mucus Auto (Urine sed) [#/Area] 4+ Reference range not established. /LPF [facility] RBC Auto (Urine sed) [#/Area] 3-5 NONE, 1-2, 3-5 /HPF [facility] WBC Auto (Urine sed) [#/Area] 21-50 Abnormal 1-5, NONE /HPF [facility] Bacteria Auto (Urine sed) [#/Area] 3+ /HPF Abnormal NONE SEEN [facility] Comment on above: Performed By: #### 5 3315-8 #### FRANKY SIBLEY ([id number]) [facility] ([facility]) [address] [place] [address] Epithelial cells.squamous Auto (Urine sed) [#/Area] 1-9 (SPARSE) Normal Reference range not established. [facility] Comment on above: Performed By: #### 5 3315-8 #### FRANKY SIBLEY ([id number]) [facility] ([facility]) [address] [place] [address] Mucus Auto (Urine sed) [#/Area] 4+ /LPF Normal Reference range not established. [facility] Comment on above: Performed By: #### 5 3315-8 #### FRANKY SIBLEY ([id number]) [facility] ([facility]) [address] [place] [address] RBC Auto (Urine sed) [#/Area] 3-5 Normal NONE, 1-2, 3-5 [facility] Comment on above: Performed By: #### 5 9475-8 #### FRANKY JAMESHRLI ([id number]) [facility] ([facility]) [address] [place] [address] WBC Auto (Urine sed) [#/Area] 21-50 Abnormal 1-5, NONE [facility] Comment on above: Performed By: #### 5 3315-8 #### WILKINS MARYJO ([id number]) [facility] ([facility]) [facility] [place] [id number] Comprehensive metabolic 2000 panelOrdered By: Shima Robb on 03-19-2025 Albumin [Mass/Vol] 3.8 g/dL Low 3.9 - 4.9 g/dL [facility] ALP [Catalytic activity/Vol] 51 U/L 34 - 123 U/L [facility] ALT [Catalytic activity/Vol] 9 U/L 7 - 38 U/L [facility] Anion gap [Moles/Vol] 11 mmol/L 8 - 15 mmol/L [facility] AST [Catalytic activity/Vol] 12 U/L Low 13 - 35 U/L [facility] Bilirubin [Mass/Vol] 0.2 mg/dL 0.2 - 1 .3 mg/dL [facility] Calcium [Mass/Vol] 9.1 mg/dL 8.5 - 10. 2 mg/dL [facility] Chloride [Moles/Vol] 105 mmol/L 98 - 10 7 mmol/L [facility] CO2 [Moles/Vol] 22 mmol/L 22 - 30 mmol/L [facility] Creatinine [Mass/Vol] 0.6 mg/dL 0.58 - 0.96 mg/dL [facility] GFR/1.73 sq M.predicted among non-blacks MDRD (S/P/Bld) [Vol rate/Area] 125 mL/min/{1.73_m2} - PINF [facility] Comment on above: Estimated Glomerular Filtration [...] [Mass/Vol] 87 mg/dL 74 - 99 mg/dL [facility] Comment on above: The [place] Diabete s Association (ADA) provides guidance for [...] Standards of Medical Care in Diabetes 2016, [place] Diabetes Association. Diabetes Care. 2016.39(Suppl 1). Interpretation and review of laboratory results Abnormal [facility] Potassium [Moles/Vol] 3.9 mmol/L 3.7 - 5.1 mmol/L [facility] Protein [Mass/Vol] 6.5 g/dL 6.3 - 8.0 g/dL [facility] Sodium [Moles/Vol] 138 mmol/L 136 - 144 mmol/L [facility] Urea nitrogen [Mass/Vol] 11 mg/dL 7 - 21 mg/dL [facility] Comprehensive metabolic 2000 panelon 03-19-2025 Albumin [Mass/Vol] 3.8 g/dL Low 3.9-4.9 [facility] Comment on above: Order Comment: Speci men Type: BLOOD SPECIMEN Ordering Facility: [facility] Address: [address] [place] [address] Performed By: #### 2 842-3 #### [facility] CLIA [id number] [address] [place] [address] [place] ALP [Catalytic activity/Vol] 51 U/L Normal 34-123 [facility] Comment on above: Order Comment: Speci men Type: BLOOD SPECIMEN Ordering Facility: [facility] Address: [address] [place] [address] Performed By: #### 2 842-3 #### [facility] CLIA [id number] [address] [place] [address] [place] ALT [Catalytic activity/Vol] 9 U/L Normal 7-38 [facility] Comment on above: Order Comment: Speci men Type: BLOOD SPECIMEN Ordering Facility: [facility] Address: [address] [place] [address] Performed By: #### 2 842-3 #### [facility] CLIA [id number] [address] [place], [place] [address] [place] Anion gap [Moles/Vol] 11 mmol/L Normal 8-15 [facility] Comment on above: Order Comment: Speci men Type: BLOOD SPECIMEN Ordering Facility: [facility] Address: [address] [place] [address] Performed By: #### 2 842-3 #### [facility] CLIA [id number] [address] [place] [address] [place] AST [Catalytic activity/Vol] 12 U/L Low 13-35 [facility] Comment on above: Order Comment: Speci men Type: BLOOD SPECIMEN Ordering Facility: [facility] Address: [address] [place] [address] Performed By: #### 2 842-3 #### [facility] CLIA [id number] [address] [place] [address] [place] Bilirubin [Mass/Vol] 0.2 mg/dL Normal 0.2-1.[address] [facility] Comment on above: Order Comment: Speci men Type: BLOOD SPECIMEN Ordering Facility: [facility] Address: [address] [place] [address] Performed By: #### 2 842-3 #### [facility] CLIA [id number] [address] [place] [address] [place] Calcium [Mass/Vol] 9.1 mg/dL Normal 8.5-10.2 [facility] Comment on above: Order Comment: Speci men Type: BLOOD SPECIMEN Ordering Facility: [facility] Address: [address] [place] [address] Performed By: #### 2 842-3 #### [facility] CLIA [id number] [address] [place] [address] [place] Chloride [Moles/Vol] 105 mmol/L Normal 98-[address] [facility] Comment on above: Order Comment: Speci men Type: BLOOD SPECIMEN Ordering Facility: [facility] Address: [address] [place] [address] Performed By: #### 2 842-3 #### [facility] CLIA [id number] [address] [place] [address] [place] CO2 [Moles/Vol] 22 mmol/L Normal 22-30 [facility] Comment on above: Order Comment: Speci men Type: BLOOD SPECIMEN Ordering Facility: [facility] Address: [address] [place] [address] Performed By: #### 2 842-3 #### [facility] CLIA [id number] [address] [place] [address] [place] Creatinine [Mass/Vol] 0.60 mg/dL Normal 0.58-0.96 [facility] Comment on above: Order Comment: Speci men Type: BLOOD SPECIMEN Ordering Facility: [facility] Address: [address] [place] [address] Performed By: #### 2 842-3 #### [facility] CLIA [id number] [address] [place] [address] [place] Creatinine and Glomerular filtration rate.predicted panel (S/P/Bld) 125 mL/min/1.73m??? Normal >=60 [facility] Comment on above: Order Comment: Speci men Type: BLOOD SPECIMEN Ordering Facility: [facility] Address: [address] [place] [address] Result Comment: Evelyn mated Glomerular Filtration Rate [...] GFR. Performed By: #### 2 842-3 #### [facility] CLIA [id number] [address] [place] [address] [place] Glucose [Mass/Vol] 87 mg/dL Normal 74-99 [facility] Comment on above: Order Comment: Fredy mancuso Type: BLOOD SPECIMEN Ordering Facility: [facility] Address: [address] [place] [address] Result Comment: The [place] Diabetes Association (ADA) provides guidance for cutoff [...] Standards of Medical Care in Diabetes 2016, [place] Diabetes Association. Diabetes Care. 2016.39(Suppl 1). Performed By: #### 2 842-3 #### [facility] CLIA [id number] [address] [place] [address] [place] Potassium [Moles/Vol] 3.9 mmol/L Normal 3.7-5.1 [facility] Comment on above: Order Comment: Fredy mancuso Type: BLOOD SPECIMEN Ordering Facility: [facility] Address: [address] [place] [address] Performed By: #### 2 842-3 #### [facility] [place] [id number] [address] [place] [address] [place] Protein [Mass/Vol] 6.5 g/dL Normal 6.3-8.0 [facility] Comment on above: Order Comment: Fredy mancuso Type: BLOOD SPECIMEN Ordering Facility: [facility] Address: [address] [place] [address] Performed By: #### 2 842-3 #### [facility] CLIA [id number] [address] [place] [address] [place] Sodium [Moles/Vol] 138 mmol/L Normal 136-144 [facility] Comment on above: Order Comment: Speci men Type: BLOOD SPECIMEN Ordering Facility: [facility] Address: [address] [place] [address] Performed By: #### 2 842-3 #### [facility] CLIA [id number] [address] [place] [address] [place] Urea nitrogen [Mass/Vol] 11 mg/dL Normal 7-21 [facility] Comment on above: Order Comment: Speci men Type: BLOOD SPECIMEN Ordering Facility: [facility] Address: [address] [place] [address] Performed By: #### 2 842-3 #### [facility] CLIA [id number] [address] [place] [address] [place] [id number] PLUSon 03-19-2025 Cell-free DNA./Cell-free DNA.total Dosage of chromosome-specific cfDNA (cfDNA) [Molar fraction] 16% Normal [facility] Comment on above: Order Comment: Speci men Type: BLOOD SPECIMENOrdering Facility: [facility] Address: [address] [place] [address] Performed By: #### M AT21 ####[facility] LABCLIA [id number] [place] [address] Chr 13+18+21+X+Y aneuploidy Dosage of chromosome-specific cfDNA Ql (cfDNA) Negative Normal [facility] Comment on above: Order Comment: Speci men Type: BLOOD SPECIMENOrdering Facility: [facility] Address: [address] [place] [address] Performed By: #### M AT21 ####[facility] LABCLIA [id number] [place] [address] Chr 21 trisomy Dosage of chromosome-specific cfDNA Ql (cfDNA) Negative Normal [facility] Comment on above: Order Comment: Speci men Type: BLOOD SPECIMENOrdering Facility: [facility] Address: [address] [place] [address] Performed By: #### M AT21 ####[facility] LABCLIA [id number] [place] [address] Chr X and Y aneuploidy risk Sequencing Ql (cfDNA) [Interp] Not detected Normal [facility] Comment on above: Order Comment: Speci men Type: BLOOD SPECIMENOrdering Facility: [facility] Address: [address] [place] [address] Result Comment: Not Detected Not Detected Performed By: #### M AT21 ####[facility] LABCLIA [id number] [place] [address] Citation Jules (Reference lab test) Comment Normal [facility] Comment on above: Order Comment: Speci men Type: BLOOD SPECIMENOrdering Facility: [facility] Address: [address] [place] [address] Result Comment: 1. P adam HARRELL, et al. Anh Med. 2012;14(3):296-305. 2. Omari KIM et al. Prenat Diag. 2013;33(6):591-597. 3. Lg C, et al. Clin Chem. 2015 Apr;61(4):608-616. 4. Lalo HARRELL, et al. Anh Med. 2011;13(11):913-920. 5. ACOG/SMFM Practice Bulletin No. 226, Jul 2020. Performed By: #### M AT21 ####[facility] LABCLIA [id number] [place] [id number] Gestational age Estimated from conception date Joseph Normal [facility] Comment on above: Order Comment: Speci men Type: BLOOD SPECIMENOrdering Facility: [facility] Address: [address] [place] [address] Performed By: #### M AT21 ####[facility] LABCLIA [id number] [place] [address] GESTATIONALAGE AGE > OR = 9W Yes Normal [facility] Comment on above: Order Comment: Fredy mancuso Type: BLOOD SPECIMENOrdering Facility: [facility] Address: [address] [place] [address] Performed By: #### M AT21 ####[facility] LABCLIA [id number] [place] [address] Laboratory comment Jules (Report) Comment Normal [facility] Comment on above: Order Comment: Fredy mancuso Type: BLOOD SPECIMENOrdering Facility: [facility] Address: [address] [place] [address] Result Comment: The MaterniT(R) 21 PLUS laboratory-developed test (LDT) analyzes circulating cell-free DNA from a maternal blood sample. This test is used for screening purposes and not diagnostic. Clinical correlation is recommended. Validation data on twin pregnancies is limited and the ability of this test to detect aneuploidy in higher multiple gestations has not yet been validated. Performed By: #### M AT21 ####[facility] LABCLIA [id number] [place] [address] hotel director name Nom (Provider) Comment Normal [facility] Comment on above: Order Comment: Fredy mancuso Type: BLOOD SPECIMENOrdering Facility: [facility] Address: [address] [place] [address] Result Comment: This specimen showed an expected representation of chromosome 21, 18 and 13 material. Clinical correlation is suggested. Comment Lucas French MD, PhD, Director, [employer] Performed By: #### M AT21 ####[facility] LABCLIA [id number] [place] [address] LIMITATIONS OF THE TEST Comment Normal [facility] Comment on above: Order Comment: Fredy mancuso Type: BLOOD SPECIMENOrdering Facility: [facility] Address: [address] [place] [address] Result Comment: Whil e the results of [...] and Fragmin(R)). Performed By: #### M AT21 ####[facility] LABCLIA [id number] [facility] [address] Monosomy X risk Dosage of chromosome-specific cfDNA Ql (Plasma cell-free+WBC DNA) [Interp] Not detected Normal [facility] Comment on above: Order Comment: Fredy mancuso Type: BLOOD SPECIMENOrdering Facility: [facility] Address: [address] [place] [address] Performed By: #### M AT21 ####[facility] LABCLIA [id number] [place] [address] NEGATIVE PREDICTIVE VALUE Note Normal [facility] Comment on above: Order Comment: Fredy mancuso Type: BLOOD SPECIMENOrdering Facility: [facility] Address: [address] [place] [address] Result Comment: The Negative Predictive Value (NPV) for trisomy 21, 18, and 13 is greater than 99%. The NPV for SCA and ESS cannot be calculated as SCA and ESS are only reported when an abnormality is detected. Performed By: #### M AT21 ####[facility] LABCLIA [id number] [place] [address] PERFORMANCE CHARACTERISTICS Note Normal [facility] Comment on above: Order Comment: Fredy mancuso Type: BLOOD SPECIMENOrdering Facility: [facility] Address: [address] [place] [address] Result Comment: ! Sex ! Accuracy: 99.4% [...] ## Joseph gestation only. Performed By: #### Toan AT21 ####[facility] LABKYLIEIA [id number] [facility] [place] [address] POSITIVE PREDICTIVE VALUE N/A Normal [facility] Comment on above: Order Comment: Speci men Type: BLOOD SPECIMENOrdering Facility: [facility] Address: [address] [place] [address] Performed By: #### Toan AT21 ####[employer] [id number] [place] [address] Reference Lab Test Method Comment Normal [facility] Comment on above: Order Comment: Speci men Type: BLOOD SPECIMENOrdering Facility: [facility] Address: [address] [place] [address] Result Comment: See Notes Circulating cell-free DNA [...] and 22. Performed By: #### M AT21 ####[employer] [id number] [place] [address] Service comment (Unsp spec) [Interp] Comment Normal [facility] Comment on above: Order Comment: Speci men Type: BLOOD SPECIMENOrdering Facility: [facility] Address: [address] [place] [address] Result Comment: See Notes [employer]. is a subsidiary of [employer], using the brand [employer]. This test was developed and its performance characteristics determined by [employer]. It has not been cleared or approved by the Food and Drug Administration. This laboratory is certified under the Clinical Laboratory Improvement Amendments (CLIA) as qualified to perform high complexity clinical laboratory testing and accredited by the College of Tr[place]ian Pathologists (CAP). If there is future clinical need for adding MaterniT GENOME testing, this specimen will be available until term. [facility] samples will not be retained beyond 60 days. [facility] patients will have to send a new sample for re-sequencing ([facility] Test Code: 209105). Performed By: #### M AT21 ####[employer] [id number] [place] [address] Sex Dosage of chromosome-specific cfDNA Nom (cfDNA) Comment Normal [facility] Comment on above: Order Comment: Speci men Type: BLOOD SPECIMENOrdering Facility: [facility] Address: [address] [place] [address] Result Comment: Cons istent with Male Performed By: #### M AT21 ####[facility] LABCLIA [id number] [place] [address] Test performance information Jules (Unsp spec) Comment Normal [facility] Comment on above: Order Comment: Speci men Type: BLOOD SPECIMENOrdering Facility: [facility] Address: [address] [place] [address] Result Comment: The performance characteristics of the MaterniT(R) 21 PLUS laboratory-developed test (LDT) have been determined in a clinical validation study with women at increased risk for chromosomal aneuploidy.[1-4] Performed By: #### M AT21 ####[facility] LABCLIA [id number] [place] [address] Trisomy 13 risk Dosage of chromosome-specific cfDNA Ql (cfDNA) [Interp] Negative Normal [facility] Comment on above: Order Comment: Speci men Type: BLOOD SPECIMENOrdering Facility: [facility] Address: [address] [place] [address] Performed By: #### M AT21 ####[facility] LABCLIA [id number] [place] [address] Trisomy 18 risk Dosage of chromosome-specific cfDNA Ql (Plasma cell-free+WBC DNA) [Interp] Negative Normal [facility] Comment on above: Order Comment: Speci men Type: BLOOD SPECIMENOrdering Facility: [facility] Address: [address] [place] [address] Performed By: #### M AT21 ####[facility] LABCLIA [id number] [place] [address] No Panel InformationOrdered By: Shmia Robb on 03-19-2025 [facility] Prot/Creat Uron 03-19-2025 Protein/Creatinine (U) [Mass ratio] 0.09 mg/mg Normal <0.15 [facility] Comment on above: Order Comment: Speci men Type: URINE SPECIMENOrdering Facility: [facility] Address: [address] [place] [address] Result Comment: Adul t Proteinuria Categories: <0.15 mg/mg is considered normal to mildly increased 0.15 - 0.50 mg/mg is considered moderately increased >0.50 mg/mg is considered severely increased KDIGO. (2013). KDIGO 2012 Clinical Practice Guideline for the Evaluation and Management of Chronic Kidney Disease. Official Journal of the International Society of Nephrology, 3(1), 1-150. Performed By: #### 2 890-2 ####[facility] [id number] [place] [address] [place] Protein/Creatinine (U) [Mass ratio]on 03-19-2025 Creatinine (U) [Mass/Vol] 85.8 mg/dL Normal 20.0-300.0 [facility] Comment on above: Order Comment: Speci men Type: URINE SPECIMENOrdering Facility: [facility] Address: [address] [place] [address] Performed By: #### 2 890-2 ####[facility] [id number] [place] [address] [place] Protein (U) [Mass/Vol] 8 mg/dL Normal 0-20 [facility] Comment on above: Order Comment: Speci men Type: URINE SPECIMENOrdering Facility: [facility] Address: [address] [place] [address] Performed By: #### 2 890-2 ####[facility] [id number] [place] [id number] [place] URIC ACIDon 03-19-2025 Urate [Mass/Vol] 3.9 mg/dL 2.5 - 6.6 mg/dL [facility] Urate SerPl-mCncon Urate [Mass/Vol] 3.9 mg/dL Normal 2.5-6.6 [facility] Comment on above: Order Comment: Speci men Type: BLOOD SPECIMEN Order[facility] Address: [address] [place] [address] Performed By: #### 2 842-3 #### [facility] CLIA [id number] [address] [place] [address] [place] Urate [Mass/Vol]on Interpretation and review of laboratory results Normal [facility] CBC W Auto Diff [place] 2024 MCH (RBC) [Entitic mass] 29.2 pg Normal 26.0-34.0 [facility] Comment on above: Order Comment: Speci men Type: BLOOD SPECIMEN Order[facility] Address: [address] [place] [address] Performed By: #### 2 842-3 #### [facility] CLIA [id number] [address] [place] [address] [place] Order Comment: Speci men Type: BLOOD SPECIMENOrdering Facility: [facility] Address: [address] [place] [address] Performed By: #### L [id number] ####[facility] LABCLIA [id number] [place] [address] [place] CBC W Auto Differential pane l (Bld)on 03-05-2025 Basophils (Bld) [#/Vol] 0.06 10*3/uL Normal <0.11 [facility] Comment on above: Order Comment: Speci men Type: BLOOD SPECIMEN Ordering Facility[facility] Address: [address] [place] [address] Performed By: #### 2 842-3 #### [facility] CLIA [id number] [address] [place] [address] [place] Basophils/100 WBC (Bld) 0.5 % Normal [facility] Comment on above: Order Comment: Speci men Type: BLOOD SPECIMEN Ordering [facility] Address: [address] [place] [address] Performed By: #### 2 842-3 #### [facility] CLIA [id number] [address] [place] [address] [place] Differential cell count method Nom (Bld) Auto Normal [facility] Comment on above: Order Comment: Speci men Type: BLOOD SPECIMEN Ordering Facility[facility] Address: [address] [place] [address] Performed By: #### 2 842-3 #### [facility] CLIA [id number] [address] [place] [address] [place] Eosinophils (Bld) [#/Vol] 0.16 10*3/uL Normal <0.46 [facility] Comment on above: Order Comment: Speci men Type: BLOOD SPECIMEN Ordering Facility: [facility] Address: [address] [place] [address] Performed By: #### 2 842-3 #### [facility] CLIA [id number] [address] [place] [address] [place] Eosinophils/100 WBC (Bld) 1.5 % Normal [facility] Comment on above: Order Comment: Speci men Type: BLOOD SPECIMEN Ordering Facility: [facility] Address: [address] [place] [address] Performed By: #### 2 842-3 #### [facility] CLIA [id number] [address] [place] [address] [place] Erythrocyte distribution width (RBC) [Ratio] 13.1 % Normal 11.5-15.0 [facility] Comment on above: Order Comment: Speci men Type: BLOOD SPECIMEN Ordering Facility: [facility] Address: [address] [place] [address] Performed By: #### 2 842-3 #### [facility] CLIA [id number] [address] [place] [address] [place] Hematocrit (Bld) [Volume fraction] 35.6 % Low 36.0-46.0 [facility] Comment on above: Order Comment: Speci men Type: BLOOD SPECIMEN Ordering Facility: [facility] Address: [address] [place] [address] Performed By: #### 2 842-3 #### [facility] CLIA [id number] [address] [place] [address] [place] Hemoglobin (Bld) [Mass/Vol] 11.6 g/dL Normal 11.5-15.5 [facility] Comment on above: Order Comment: Speci men Type: BLOOD SPECIMEN Ordering Facility: [facility] Address: [address] [place] [address] Performed By: #### 2 842-3 #### [facility] CLIA [id number] [address] [place] [address] [place] Immature granulocytes (Bld) [#/Vol] 0.04 10*3/uL Normal <0.10 [facility] Comment on above: Order Comment: Speci men Type: BLOOD SPECIMEN Ordering Facility: [facility] Address: [address] [place] [address] Performed By: #### 2 842-3 #### [facility] CLIA [id number] [address] [place] [address] [place] Immature granulocytes/100 WBC (Bld) 0.4 % Normal [facility] Comment on above: Order Comment: Speci men Type: BLOOD SPECIMEN [facility] [facility] Address: [address] [place] [address] Performed By: #### 2 842-3 #### [facility] CLIA [id number] [address] [place] [address] [place] Lymphocytes (Bld) [#/Vol] 3.06 10*3/uL Normal 1.00-4.00 [facility] Comment on above: Order Comment: Speci men Type: BLOOD SPECIMEN Ordering Facility: [facility] Address: [address] [place] [address] Performed By: #### 2 842-3 #### [facility] CLIA [id number] [address] [place] [address] [place] Lymphocytes/100 WBC (Bld) 27.8 % Normal [facility] Comment on above: Order Comment: Speci men Type: BLOOD SPECIMEN Ordering Facility: [facility] Address: [address] [place] [address] Performed By: #### 2 842-3 #### [facility] CLIA [id number] [address] [place] [address] [place] MCHC (RBC) [Mass/Vol] 32.6 g/dL Normal 30.5-36.0 [facility] Comment on above: Order Comment: Speci men Type: BLOOD SPECIMEN Ordering Facility: [facility] Address: [address] [place] [address] Performed By: #### 2 842-3 #### [facility] CLIA [id number] [address] [place] [address] [place] MCV (RBC) [Entitic vol] 89.7 fL Normal 80.0-100.0 [facility] Comment on above: Order Comment: Speci men Type: BLOOD SPECIMEN Ordering Facility: [facility] Address: [address] [place] [address] Performed By: #### 2 842-3 #### [facility] CLIA [id number] [address] [place] [address] [place] Monocytes (Bld) [#/Vol] 0.87 10*3/uL High <0.87 [facility] Comment on above: Order Comment: Speci men Type: BLOOD SPECIMEN Ordering Facility: [facility] Address: [address] [place] [address] Performed By: #### 2 842-3 #### [facility] CLIA [id number] [address] [place] [address] [place] Monocytes/100 WBC (Bld) 7.9 % Normal [facility] Comment on above: Order Comment: Speci men Type: BLOOD SPECIMEN Ordering Facility: [facility] Address: [address] [place] [address] Performed By: #### 2 842-3 #### [facility] CLIA [id number] [address] [place] [address] [place] Neutrophils (Bld) [#/Vol] 6.81 10*3/uL Normal 1.45-7.50 [facility] Comment on above: Order Comment: Speci men Type: BLOOD SPECIMEN Ordering Facility: [facility] Address: [address] [place] [address] Performed By: #### 2 842-3 #### [facility] CLIA [id number] [address] [place] [address] [place] Neutrophils/100 WBC (Bld) 61.9 % Normal [facility] Comment on above: Order Comment: Speci men Type: BLOOD SPECIMEN Ordering Facility: [facility] Address: [address] [place] [address] Performed By: #### 2 842-3 #### [facility] CLIA [id number] [address] [place] [address] [place] Nucleated RBC (Bld) [#/Vol] 10*3/uL Normal <0.01 [facility] Comment on above: Order Comment: Speci men Type: BLOOD SPECIMEN Ordering Facility: [facility] Address: [address] [place] [address] Performed By: #### 2 842-3 #### [facility] CLIA [id number] [address] [place] [address] [place] Nucleated RBC/100 WBC (Bld) [Ratio] 0.0 /100 WBC Normal [facility] Comment on above: Order Comment: Speci men Type: BLOOD SPECIMEN Ordering Facility: [facility] Address: [address] [place] [address] Performed By: #### 2 842-3 #### [facility] CLIA [id number] [address] [place] [address] [place] Platelet mean volume (Bld) [Entitic vol] 9.9 fL Normal 9.0-12.7 [facility] Comment on above: Order Comment: Speci men Type: BLOOD SPECIMEN Ordering Facility: [facility] Address: [address] [place] [address] Performed By: #### 2 842-3 #### [facility] CLIA [id number] [address] [place] [address] [place] Platelets (Bld) [#/Vol] 370 10*3/uL Normal 150-400 [facility] Comment on above: Order Comment: Speci men Type: BLOOD SPECIMEN Ordering Facility: [facility] Address: [address] [place] [address] Performed By: #### 2 842-3 #### [facility] CLIA [id number] [address] [place] [address] [place] RBC (Bld) [#/Vol] 3.97 10*6/uL Normal 3.90-5.20 [facility] Comment on above: Order Comment: Speci men Type: BLOOD SPECIMEN Ordering Facility: [facility] Address: [address] [place] [address] Performed By: #### 2 842-3 #### [facility] CLIA [id number] [address] [place] [address] [place] WBC (Bld) [#/Vol] 11.00 10*3/uL Normal 3.70-11.[address] [facility] Comment on above: Order Comment: Speci men Type: BLOOD SPECIMEN Ordering Facility: [facility] Address: [address] [place] [address] Performed By: #### 2 842-3 #### [facility] CLIA [id number] [address] [place] [address] [place] HBV surface Ag Ser Qlon 02-06 HBV surface Ag Ql (S) Negative Normal Negative [facility] Comment on above: Order Comment: Speci men Type: BLOOD SPECIMENOrdering Facility: [facility] Address: [address] [place] [address] Performed By: #### 5 195-3, 08558-5, 93584-5 ####[facility] [id number] [place] [address] [place] HCV Ab Ser Qlon 03-05-2025 HCV Ab Ql (S) Negative Normal Negative [facility] Comment on above: Order Comment: Speci men Type: BLOOD SPECIMENOrdering Facility: [facility] Address: [address] [place] [address] Result Comment: The result suggests no evidence of infection with Hepatitis C virus. Should recent infection be suspected, repeat testing may be considered 4-6 weeks after this draw. Performed By: #### 1 6128-1 ####[facility] [id number] [place] [address] [place] HGB ELECTROPHORESIS FOR EVAL (LAB ORDER)on 03-05-2025 Hemoglobin A (Bld) [Mass fraction] 97.4 % Normal 96.2-98.0 [facility] Comment on above: Order Comment: Speci men Type: BLOOD SPECIMENOrdering Facility: [facility] Address: [address] [place] [address] Performed By: #### L [id number], HGBELEV ####[facility] [id number] [place] [address] [place] Hemoglobin A2 (Bld) [Mass fraction] 2.6 % Normal 2.0-3.1 [facility] Comment on above: Order Comment: Speci men Type: BLOOD SPECIMENOrdering Facility: [facility] Address: [address] [place] [address] Performed By: #### L [id number], HGBELEV ####[facility] [id number] [place] [address] [place] Hemoglobin Unsp Elph (Bld) [Mass fraction] No abnormal hemoglobin identified. Normal No abnormal hemoglobin identified. [facility] Comment on above: Order Comment: Speci men Type: BLOOD SPECIMENOrdering Facility: [facility] Address: [address] [place] [address] Performed By: #### L [id number], HGBELEV ####[facility] [id number] [place] [address] [place] HGB EVALUATION CASCADE INTER Tim 03-05-2025 Hemoglobin pattern (Bld) [Interp] Reviewed by Zenaida Aguirre M.D., Ph.D Normal [facility] Comment on above: Order Comment: Speci men Type: BLOOD SPECIMENOrdering Facility: [facility] Address: [address] [place] [address] Performed By: #### L [id number], HGBELEV ####[facility] [id number] [place] [address] [place] INTERPRETATION (HGB EVAL) Normal [facility] Comment on above: Order Comment: Speci men Type: BLOOD SPECIMENOrdering Facility: [facility] Address: [address] [place] [address] Result Comment: Hemo globins were analyzed by capillary electrophoresis and CBC red cell parameters were reviewed. No abnormal hemoglobin is identified. There is a normal hemoglobin capillary electrophoresis pattern. Performed By: #### L [id number], HGBELEV ####[facility] [id number] [place] [address] [place] HIV 1+2 Ab IA Qlon HIV 1 and 2 Ab IA.rapid Nom (S/P/Bld) Normal [facility] Comment on above: Order Comment: Speci men Type: BLOOD SPECIMENOrdering Facility: [facility] Address: [address] [place] [address] Result Comment: Test not indicated. Performed By: #### 5 195-3, 02724-3, 41291-5 ####[facility] [id number] [place] [address] [place] HIV 1+2 Ab+HIV1 p24 Ag IA Ql Non-Reactive Normal Nonreactive [facility] Comment on above: Order Comment: Speci men Type: BLOOD SPECIMENOrdering Facility: [facility] Address: [address] [place] [address] Performed By: #### 5 195-3, 82031-6, 85260-4 ####[facility] [id number] [place] [address] [place] HIV immunoassay testing algorithm interpretation (S/P/Bld) [Interp] Normal [facility] Comment on above: Order Comment: Speci men Type: BLOOD SPECIMENOrdering Facility: [facility] Address: [address] [place] [address] Result Comment: No e vidence of HIV-1 or HIV-2 infection. Should recent infection be suspected, repeat testing may be considered 2-3 weeks after this draw. [place] Rev. Code 3701.243(E): This information has been [...] or diagnoses. Performed By: #### 5 195-3, 84538-8, 56492-0 ####[facility]IA [id number] [place] [id number] [place] HbA1c (Bld)on 03-05-2025 Average glucose Estimated from glycated hemoglobin (Bld) [Mass/Vol] 103 mg/dL Normal [facility] Comment on above: Order Comment: Speci men Type: BLOOD SPECIMENOrdering Facility: [facility] Address: [address] [place] [address] Result Comment: eAG: (Estimated average glucose) is a calculated value from HgbA1c and is field representative of the average blood glucose level in the last 2-3 month period. Performed By: #### 5 5454-3 ####[facility] [id number] [place] [address] [place] HbA1c (Bld) [Mass fraction] 5.2 % Normal 4.3-5.6 [facility] Comment on above: Order Comment: Speci men Type: BLOOD SPECIMENOrdering Facility: [facility] Address: [address] [place] [address] Result Comment: er [place] Diabetes Association guidelines indicate that patients with HgbA1c in the range 5.7-6.4% are at increased risk for development of diabetes, and intervention by lifestyle modification may be beneficial. HgbA1c greater or equal to 6.5% is considered diagnostic of diabetes. Performed By: #### 5 5454-3 ####[facility]IA [id number] [address] [place] RBC PARAMETERS FOR HB IDon 0 - Erythrocyte distribution width (RBC) [Ratio] 13.2 % Normal 11.5-15.0 [facility] Comment on above: Order Comment: Speci men Type: BLOOD SPECIMENOrdering Facility: [facility] Address: [address] [place] [address] Performed By: #### L [id number] ####[facility] [id number] [facility] [place] [id number] [place] Hematocrit (Bld) [Volume fraction] 36.3 % Normal 36.0-46.0 [facility] Comment on above: Order Comment: Mikeli men Type: BLOOD SPECIMENOrdering Facility: [facility] Address: [address] [place] [address] Performed By: #### L [id number] ####[facility] [id number] [place] [address] [place] Hemoglobin (Bld) [Mass/Vol] 11.9 g/dL Normal 11.5-15.5 [facility] Comment on above: Order Comment: Speci men Type: BLOOD SPECIMENOrdering Facility: [facility] Address: [address] [place] [address] Performed By: #### L [id number] ####[facility] [id number] [place] [address] [place] MCHC (RBC) [Mass/Vol] 32.8 g/dL Normal 30.5-36.0 [facility] Comment on above: Order Comment: Speci men Type: BLOOD SPECIMENOrdering Facility: [facility] Address: [address] [place] [address] Performed By: #### L [id number] ####[facility] [id number] [place] [address] [place] MCV (RBC) [Entitic vol] 89.0 fL Normal 80.0-100.0 [facility] Comment on above: Order Comment: Speci men Type: BLOOD SPECIMENOrdering Facility: [facility] Address: [address] [place] [address] Performed By: #### L [id number] ####[facility] [id number] [place] [address] [place] RBC (Bld) [#/Vol] 4.08 10*6/uL Normal 3.90-5.20 [facility] Comment on above: Order Comment: Speci men Type: BLOOD SPECIMENOrdering Facility: [facility] Address: [address] [place] [address] Performed By: #### L [id number] ####[facility] [id number] [place] [address] [place] RUBELLA IGG ANTIBODYon 03-05 RUBELLA IGG AB, QUAL Positive Normal Positive [facility] Comment on above: Order Comment: Speci men Type: BLOOD SPECIMENOrdering Facility: [facility] Address: [address] [place] [address] Result Comment: The result suggests recent or past exposure to Rubella virus or history of Rubella vaccination. Positive result may also be seen due to presence of passively-transferred antibodies. Please correlate with patient's history. Performed By: #### R UBIGG ####[facility] [id number] [place] [address] [place] Reagin and Treponema pallidu m IgG and IgM [Interp]on 03-05-2025 T. pallidum IgG+IgM IA Ql (S) Non-Reactive Normal Nonreactive [facility] Comment on above: Order Comment: Speci men Type: BLOOD SPECIMENOrdering Facility: [facility] Address: [address] [place] [address] Performed By: #### 5 195-3, 78344-5, 38737-6 ####[facility]IA [id number] [place] [address] [place] Reagin+T pallidum IgG+IgM Se rPl-Impon 03-05-2025 Reagin and Treponema pallidum IgG and IgM [Interp] Cannot exclude recent Treponemal infection if specimen collected within 7-10 days after appearance of suspect lesions or 2-3 weeks after an exposure. Clinical correlation is required. Normal [facility] Comment on above: Order Comment: Speci men Type: BLOOD SPECIMENOrdering Facility: [facility] Address: [address] [place] [address] Performed By: #### 5 195-3, 65197-0, 05529-0 ####[facility]IA [id number] [place] [id number] [place] TYPE + SCREEN PRENATALon ABO A Normal [facility] Comment on above: Order Comment: Speci men Type: BLOOD SPECIMENOrdering Facility: [facility] Address: [address] [place] [address] Performed By: #### T SPN ####[facility] [id number] [address] Rh Nom (Bld) Positive Normal [facility] Comment on above: Order Comment: Speci men Type: BLOOD SPECIMENOrdering Facility: [facility] Address: [address] [place] [address] Performed By: #### T SPN ####[facility]CLIA [id number] [address] TYPE AND SCREEN EXPIRATION 03/08/2025 23:59 Normal [facility] Comment on above: Order Comment: Speci men Type: BLOOD SPECIMENOrdering Facility: [facility] Address: [address] [place] [address] Performed By: #### T SPN ####[facility]ANKCLIA [id number] [address] Examination level ultrasound on 03-03-2025 Indication First trimester anatomic survey Maternal obesity, BMI >35 Impression The patient is referred for a first trimester anatomy scan including nuchal translucency measurement as clinically indicated. - Single, live, intrauterine . - Trimble rump length measurement is consistent with the [...] view: visualized 4-chamber view with color: visualized 0-erigce-qxpapaq view: normal Abdominal cord insertion: normal Stomach: [...] ovary Vol 2.2 cm Performed By: Eulalia Munoz RDMS, RVT Read By: Teena Pena M.D. MATERNAL MEDICINE [facility] Radiology Study observation (narrative) [facility] BACTERIAL VAGINOSIS NAATon 0 01-29-2025 Lactobacillus crispatus+gasseri+je nsenii + Gardnerella vaginalis + Atopobium vaginae rRNA GERARD+probe Ql (Vag fld) Not detected Normal Not detected [facility] Comment on above: Order Comment: Speci men Type: SWABOrdering Facility: [facility] Address: [address] [place] [address] Performed By: #### B VAMP, CVTV ####[facility]IA [id number] [facility] [address], [place] [address] [place] Bacteria Ur Culton Bacteria identified Cx Nom (U) ORGANISM ID: 1 50,000-<100,000 CFU/ml Normal urogenital tonio Normal [facility] Comment on above: Performed By: #### 6 30-4 ####[facility]CLIA [id number] [facility] [address], [place] [address] [place] C. trachomatis+N. gonorrhoea e DNA GERARD+probe Ql (Unsp spec)on 01-29-2025 C. trachomatis rRNA GERARD+probe Ql (Unsp spec) Not detected Normal Not detected [facility] Comment on above: Order Comment: Speci men Type: SWABOrdering Facility: [facility] Address: [address] [place] [address] Performed By: #### 3 6902-5 ####[facility] [id number] [facility] [address], [place] [address] [place] N. gonorrhoeae rRNA GERARD+probe Ql (Unsp spec) Not detected Normal Not detected [facility] Comment on above: Order Comment: Speci men Type: SWABOrdering Facility: [facility] Address: [address] [place] [address] Performed By: #### 3 6902-5 ####[facility]CLIA [id number] [facility] [address], [place] [address] [place] DEUCE/TRICHOMONAS NAATon 0 01-29-2025 C. glabrata RNA GERARD+probe Ql (Vag fld) Not detected Normal Not detected [facility] Comment on above: Order Comment: Speci men Type: SWABOrdering Facility: [facility] Address: [address] [place] [address] Performed By: #### B VAMP, CVTV ####[facility]IA [id number] [place] [address] [place] Deuce sp DNA GERARD+probe Ql (Vag fld) Detected Abnormal Not detected [facility] Comment on above: Order Comment: Speci men Type: SWABOrdering Facility: [facility] Address: [address] [place] [address] Result Comment: The Deuce species group target includes C. albicans, C. tropicalis, C. parapsilosis, and C. dubliniensis. Performed By: #### Nash VAMP, CVTV ####[facility] [id number] [address] [place] T. vaginalis DNA GERARD+probe Ql (Unsp spec) Not detected Normal Not detected [facility] Comment on above: Order Comment: Speci men Type: SWABOrdering Facility: [facility] Address: [address] [place] [address] Performed By: #### Nash VAMP, CVTV ####[facility] [id number] [address] [place] CNOVon 11-20-2024 CNOV Office Visit (OBGYWM ) ----- MIRYAM HENLEYILEE ([id number]) 1995 F Date Time Provider Department 11/20/24 7:30 AM ALBA ROSA OBGYWM During your visit today, we recorded the following information about you: Blood pressure Weight Height Last Period 124/82 98.9 kg 1.613 m 10/14/24 Alba Rosa APRN.CHIEF PHARMACIST 11/20/2024 11:07 AM Signed Jennifer is a [...] OB History No obstetric history on file. Bacteriologist Food History LMP: 10/14/2024 Age at Menarche: 10 Age at First : Age at Menopause: Bacteriologist Food History Comments: Sexual Activity: Yes; Male Contraception: [...] discussed with the Patient or Patient's Authorized Rd Mechanical Engineer. As applicable, any other physician, advance practice provider, medical student, or other health professional student that will be observing or involved in the sensitive examination for educational or training purposes was discussed with the Patient or Authorized Rd Mechanical Engineer. The Patient or Authorized Rd Mechanical Engineer has agreed to proceed with the sensitive [...] external genitalia normal, normal Bartholin's glands, urethra, Goff's glands, no vulvar lesions, no cervical lesions, [...] ESTRADIOL-17B BLD - HEMOGLOBIN A1C Alba Rosa, MERCHANDISING TEAM LEAD.CHIEF PHARMACIST Medical Decision Making: Problems: Moderate: New problem with uncertain prognosis Data: Unique test(s) ordered: 3+ Risk: Low: Low risk from testing/treatment Medical Decision Making Level: 4 - Moderate Allergies As of Date: 11/20/2024 Noted Allergy Reaction PENICILLINS 12/30/2017 4 - Hives ADHESIVE 11/20/2024 4 - Hives SUTURES 01/09/2024 4 - Hives CEPHALEXIN 03/10/2024 9 - Itching Date (more content not included)... Normal [facility] DHEA-S BLDon 11-20-2024 DHEA-S [Mass/Vol] 136.9 ug/dL Normal 98.8-340.0 [facility] Comment on above: Order Comment: Speci men Type: BLOOD SPECIMEN [facility] Address: [address] [place] [address] Result Comment: Refe rence ranges are age and gender specific. For additional information, reference range tables can be found in the laboratory test directory. The normal values are based on the following source: Dehydroepiandrosterone sulfate (DHEA S) [package insert V 17.0 Citizen Of [place]]. [employer], [place], [place]: May 2013. Performed By: #### 2 842-3 #### [facility] CLIA [id number] [address] [place] [address] [place] Estradiol SerPl-mCncon 11-20 E2 [Mass/Vol] 59 pg/mL Normal [facility] Comment on above: Order Comment: Speci men Type: BLOOD SPECIMEN [facility] Address: [address] [place] [address] Result Comment: This test is not suitable [...] 3243 pg/mL Second trimester : 1561 to 65549 pg/mL Third trimester : 8285 to >01021 pg/mL Post-menopausal Estradiol reference range: < 41 pg/mL Reference: 1. Estradiol - E2 (Estradiol III) [package insert V 3.0 Citizen Of [place]]. [employer], [place], [place], March 2016. Performed By: #### 2 842-3 #### [facility] CLIA [id number] [address] [place] [address] [place] FSH SerPl-aCncon 11-20-2024 Follitropin Qn 3.4 m[IU]/mL Normal See comment [facility] Comment on above: Order Comment: Speci men Type: BLOOD SPECIMEN [facility] Address: [address] [place] [address] Result Comment: Refe rence range: Follicular: 3.5-12.5 mIU/mL Ovulation: 4.7-21.5 mIU/mL Luteal: 1.7-7.7 mIU/mL Postmenopausal: 25.8-134.8 mIU/mL Performed By: #### 2 842-3 #### [facility] CLIA [id number] [address] [place] [address] [facility] HYDROXYPROGESTERONE-17on 17-HYDROXYPROGESTERO NE QUANTITATIVE BY HPLC-MS/MS, SERUM OR PLASMA 101.81 ng/dL Normal <=206.00 [facility] Comment on above: Order Comment: Speci men Type: BLOOD SPECIMENOrdering Facility: [facility] Address: [address] [place] [address] Result Comment: INTE RPRETIVE INFORMATION for 17-Hydroxyprogesterone in females: Follicular 15 to 70 ng/dL Luteal 35 to 290 ng/dL REFERENCE INTERVAL: 17-Hydroxyprogesterone Qnt, HPLC-MS/MS Access complete set of age- and/or gender-specific reference intervals for this test in the [facility] Test Directory ([employer]). This test was developed and its performance characteristics determined by [facility]. It has not been cleared or approved by the [place] Food and Drug Administration. This test was performed in a CLIA certified laboratory and is intended for clinical purposes. Performed By: [facility] [address] [place] [address] Glass Cutter Helper: Wilfrido García MD, PhD CLIA Number: [id number] Performed By: #### H PROG ####[facility] LAB[facility]IES[facility] [id number] [place] [id number] HbA1c (Bld)on 11-20-2024 Average glucose Estimated from glycated hemoglobin (Bld) [Mass/Vol] 108 mg/dL Normal [facility] Comment on above: Order Comment: Speci men Type: BLOOD SPECIMENOrdering Facility: [facility] Address: [address] [place] [address] Result Comment: eAG: (Estimated average glucose) is a calculated value from HgbA1c and is field representative of the average blood glucose level in the last 2-3 month period. Performed By: #### 5 5454-3 ####[facility] [id number] [place] [address] [place] HbA1c (Bld) [Mass fraction] 5.4 % Normal 4.3-5.6 [facility] Comment on above: Order Comment: Speci men Type: BLOOD SPECIMENOrdering Facility: [facility] Address: [address] [place] [address] Result Comment: Amer ican Diabetes Association guidelines indicate that patients with HgbA1c in the range 5.7-6.4% are at increased risk for development of diabetes, and intervention by lifestyle modification may be beneficial. HgbA1c greater or equal to 6.5% is considered diagnostic of diabetes. Performed By: #### 5 5454-3 ####[facility]IA [id number] [place] [address] [place] LH SerPl-aCncon 11-20-2024 Lutropin Qn 7.4 m[IU]/mL Normal See comment [facility] Comment on above: Order Comment: Speci men Type: BLOOD SPECIMEN [facility] Address: [address] [place] [address] Result Comment: Refe rence range: Follicular: 2.4-12.6 mIU/mL Midcycle: 14.0-95.6 mIU/mL Luteal: 1.0-11.4 mIU/mL Post Mellissa: 7.7-58.5 mIU/mL Performed By: #### 2 842-3 #### [facility] CLIA [id number] [address] [place] [address] [place] Prolactin SerPl-mCncon 11-20 Prolactin [Mass/Vol] 10.4 ng/mL Normal 4.4-33.[address] [facility] Comment on above: Order Comment: Speci men Type: BLOOD SPECIMEN [facility] Address: [address] [place] [address] Result Comment: Prol actin test is performed using the [employer] Electrochemiluminescence Immunoassay method. Results obtained with different methods or kits cannot be used interchangeably. Performed By: #### 2 842-3 #### [facility] CLIA [id number] [address] [place], [place] [address] [id number] [address] [place] TESTOSTERONE, FREE AND TOTAL , BY EQUILIBRIUM ULTRAFILTRATION MASS SPECTROMETRYon 11-20-2024 Testosterone [Mass/Vol] 16.2 ng/dL Normal 10.0-55.0 [facility] Comment on above: Order Comment: Speci men Type: BLOOD SPECIMENOrdering Facility: [facility] Address: [address] [place] [address] Performed By: #### T FTEST ####[facility]IA [id number] [place] [address] Testosterone Free [Mass/Vol] 0.50 ng/dL Normal 0.10-0.85 [facility] Comment on above: Order Comment: Speci men Type: BLOOD SPECIMENOrdering Facility: [facility] Address: [address] [place] [address] Performed By: #### T FTEST ####[facility]IA [id number] [place] [address] Testosterone Free/Testosterone.to hermelindo [Mass fraction] 3.10 % High 0.50-2.80 [facility] Comment on above: Order Comment: Speci men Type: BLOOD SPECIMENOrdering Facility: [facility] Address: [address] [place] [address] Performed By: #### T FTEST ####[facility] LABCLIA [id number] [place] [address] Thyrotropinon 10-23-2024 TSH Qn 1.17 m[IU]/L Normal 0.44-3.98 [facility] Comment on above: Order Comment: TSH t esting is performed using different testing methodology at [facility] than at other [facility]. Direct result comparisons should only be made within the same method. Performed By: #### 3 016-3 #### JOHN Longo ([id number]) [facility] ([facility]) [address] [place] [address] C reactive proteinon 024 CRP [Mass/Vol] 1.72 mg/dL High <1.00 [facility] Comment on above: Performed By: #### 1 988-5 #### FRANKY SIBLEY ([id number]) [facility] ([facility]) [address] [place] [address] CBC W Auto Differential pane l (Bld)on 03-11-2024 Basophils (Bld) [#/Vol] 0.09 x10*3/uL Normal 0.00-0.10 [facility] Comment on above: Performed By: #### 5 7021-8 #### FRANKY SIBLEY ([id number]) [facility] ([facility]) [address] [place] [address] 85487 Basophils/100 WBC (Bld) 1.0 % Normal 0.0-2.0 [facility] Comment on above: Performed By: #### 5 7021-8 #### FRANKY SIBLEY ([id number]) [facility] ([facility]) [address] [place] [address] 58082 Eosinophils (Bld) [#/Vol] 0.22 x10*3/uL Normal 0.00-0.70 [facility] Comment on above: Performed By: #### 5 7021-8 #### FRANKY SIBLEY ([id number]) [facility] ([facility]) [address] [place] [address] 94551 Eosinophils/100 WBC (Bld) 2.3 % Normal 0.0-6.0 [facility] Comment on above: Performed By: #### 5 7021-8 #### FRANKY SIBLEY ([id number]) [facility] ([facility]) [address] [place] [address] 25332 Erythrocyte distribution width (RBC) [Ratio] 12.7 % Normal 11.5-14.5 [facility] Comment on above: Performed By: #### 5 7021-8 #### FRANKY SIBLEY ([id number]) [facility] ([facility]) [address] [place] [address] 83198 Hematocrit (Bld) [Volume fraction] 38.5 % Normal 36.0-46.0 [facility] Comment on above: Performed By: #### 5 7021-8 #### FRANKY SIBLEY ([id number]) [facility] ([facility]) [address] [place] [address] 87548 Hemoglobin (Bld) [Mass/Vol] 12.0 g/dL Normal 12.0-16.0 [facility] Comment on above: Performed By: #### 5 7021-8 #### FRANKY SIBLEY ([id number]) [facility] ([facility]) [address] [place] [address] 23135 Immature granulocytes (Bld) [#/Vol] 0.01 x10*3/uL Normal 0.00-0.70 [facility] Comment on above: Performed By: #### 5 7021-8 #### FRANKY SIBLEY ([id number]) [facility] ([facility]) [address] [place] [address] 51592 Immature granulocytes/100 WBC (Bld) 0.1 % Normal 0.0-0.9 [facility] Comment on above: Result Comment: Sylwia ture Granulocyte Count (IG) includes promyelocytes, myelocytes and metamyelocytes but does not include bands. Percent differential counts (%) should be interpreted in the context of the absolute cell counts (cells/UL). Performed By: #### 5 7021-8 #### FRANKY SIBLEY ([id number]) [facility] ([facility]) [address] [place] [address] 78908 Lymphocytes (Bld) [#/Vol] 2.62 x10*3/uL Normal 1.20-4.80 [facility] Comment on above: Performed By: #### 5 7021-8 #### FRANKY SIBLEY ([id number]) [facility] ([facility]) [address] [place] [address] 97641 Lymphocytes/100 WBC (Bld) 28.0 % Normal 13.0-44.0 [facility] Comment on above: Performed By: #### 5 7021-8 #### FRANKY SIBLEY ([id number]) [facility] ([facility]) [address] [place] [address] 37957 MCH (RBC) [Entitic mass] 29.1 pg Normal 26.0-34.0 [facility] Comment on above: Performed By: #### 5 7021-8 #### FRANKY SIBLEY ([id number]) [facility] ([facility]) [address] [place] [address] 49539 MCHC (RBC) [Mass/Vol] 31.2 g/dL Low 32.0-36.0 [facility] Comment on above: Performed By: #### 5 7021-8 #### FRANKY SIBLEY ([id number]) [facility] ([facility]) [address] [place], [place] [address] MCV (RBC) [Entitic vol] 93 fL Normal 80-100 [facility] Comment on above: Performed By: #### 5 7021-8 #### FRANKY SIBLEY ([id number]) [facility] ([facility]) [address] [place] [address] 32297 Monocytes (Bld) [#/Vol] 0.73 x10*3/uL Normal 0.10-1.00 [facility] Comment on above: Performed By: #### 5 7021-8 #### FRANKY SIBLEY ([id number]) [facility] ([facility]) [address] [place] [address] 15550 Monocytes/100 WBC (Bld) 7.8 % Normal 2.0-10.0 [facility] Comment on above: Performed By: #### 5 7021-8 #### FRANKY SIBLEY ([id number]) [facility] ([facility]) [address] [place] [address] 24011 Neutrophils (Bld) [#/Vol] 5.70 x10*3/uL Normal 1.20-7.70 [facility] Comment on above: Result Comment: Perc ent differential counts (%) should be interpreted in the context of the absolute cell counts (cells/uL). Performed By: #### 5 7021-8 #### FRANKY SIBLEY ([id number]) [facility] ([facility]) [address] [place] [address] 66140 Neutrophils/100 WBC (Bld) 60.8 % Normal 40.0-80.0 [facility] Comment on above: Performed By: #### 5 7021-8 #### FRANKY SIBLEY ([id number]) [facility] ([facility]) [address] [place] [address] 20940 Nucleated RBC/100 WBC (Bld) [Ratio] 0.0 /100 WBCs Normal 0.0-0.0 [facility] Comment on above: Performed By: #### 5 7021-8 #### FRANKY SIBLEY ([id number]) [facility] ([facility]) [address] [place] [address] 16399 Platelets (Bld) [#/Vol] 393 x10*3/uL Normal 150-450 [facility] Comment on above: Performed By: #### 5 7021-8 #### FRANKY SIBLEY ([id number]) [facility] ([facility]) [address] [place] [address] 36903 RBC (Bld) [#/Vol] 4.12 x10*6/uL Normal 4.00-5.20 [facility] Comment on above: Performed By: #### 5 7021-8 #### FRANKY SIBLEY ([id number]) [facility] ([facility]) [address] [place] [address] 46865 WBC (Bld) [#/Vol] 9.4 x10*3/uL Normal 4.4-11.3 [facility] Comment on above: Performed By: #### 5 7021-8 #### FRANKY SIBLEY ([id number]) [facility] ([facility]) [address] [place] [address] 09441 Comprehensive metabolic 2000 panelon 03-11-2024 Albumin BCP dye [Mass/Vol] 4.1 g/dL Normal 3.4-5.0 [facility] Comment on above: Performed By: #### 2 4323-8 #### FRANKY SIBLEY ([id number]) [facility] ([facility]) [address] [place] [address] 65753 ALP [Catalytic activity/Vol] 60 U/L Normal 33-110 [facility] Comment on above: Performed By: #### 2 4323-8 #### FRANKY SIBLEY ([id number]) [facility] ([facility]) [facility] [place] [address] ALT With P-5'-P [Catalytic activity/Vol] 10 U/L Normal 7-45 [facility] Comment on above: Result Comment: Tori ents treated with Sulfasalazine may generate falsely decreased results for ALT. Performed By: #### 2 4323-8 #### FRANKY SIBLEY ([id number]) [facility] ([facility]) [address] [place] [address] Anion gap [Moles/Vol] 12 mmol/L Normal 10-20 [facility] Comment on above: Performed By: #### 2 432-8 #### FRANKY SIBLEY ([id number]) [facility] ([facility]) [address] [place] [address] 84598 AST With P-5'-P [Catalytic activity/Vol] 14 U/L Normal 9-39 [facility] Comment on above: Performed By: #### 2 432-8 #### FRANKY SIBLEY ([id number]) [facility] ([facility]) [address] [place] [address] 60413 Bilirubin [Mass/Vol] 0.3 mg/dL Normal 0.0-1.2 [facility] Comment on above: Performed By: #### 2 432-8 #### FRANKY SIBLEY ([id number]) [facility] ([facility]) [address] [place] [address] 40446 Calcium [Mass/Vol] 9.2 mg/dL Normal 8.6-10.3 [facility] Comment on above: Performed By: #### 2 4323-8 #### FRANKY SIBLEY ([id number]) [facility] ([facility]) [address] [place] [address] 38286 Chloride [Moles/Vol] 110 mmol/L High 98-107 [facility] Comment on above: Performed By: #### 2 4323-8 #### FRANKY SIBLEY ([id number]) [facility] ([facility]) [address] [place] [address] CO2 [Moles/Vol] 20 mmol/L Low 21-32 [facility] Comment on above: Performed By: #### 2 4322-8 #### FRANKY SIBLEY ([id number]) [facility] ([facility]) [address] [place] [address] 48504 Creatinine [Mass/Vol] 0.93 mg/dL Normal 0.50-1.05 [facility] Comment on above: Performed By: #### 2 4322-8 #### FRANKY SIBLEY ([id number]) [facility] ([facility]) [address] [place] [address] 51331 Glomerular filtration rate/1.73 sq M.predicted 86 mL/min/1.73m*2 Normal >60 [facility] Comment on above: Result Comment: Calc ulations of estimated GFR are performed using the 2020 CKD-EPI Study Refit equation without the race variable for the IDMS-Traceable creatinine methods. https://jasn.asnjournals.org/content/early/ASN.1255478 988 Performed By: #### 2 4322-8 #### FRANKY SIBLEY ([id number]) [facility] ([facility]) [address] [place] [address] 18810 Glucose [Mass/Vol] 102 mg/dL High 74-99 [facility] Comment on above: Performed By: #### 2 4322-8 #### FRANKY SIBLEY ([id number]) [facility] ([facility]) [address] [place] [address] 65093 Potassium [Moles/Vol] 4.2 mmol/L Normal 3.5-5.3 [facility] Comment on above: Performed By: #### 2 4322-8 #### FRANKY SIBLEY ([id number]) [facility] ([facility]) [address] [place] [address] 94139 Protein [Mass/Vol] 6.8 g/dL Normal 6.4-8.2 [facility] Comment on above: Performed By: #### 2 4322-8 #### FRANKY SIBLEY ([id number]) [facility] ([facility]) [address] [place] [address] 82089 Sodium [Moles/Vol] 138 mmol/L Normal 136-145 [facility] Comment on above: Performed By: #### 2 4323-8 #### FRANKY SIBLEY ([id number]) [facility] ([facility]) [address] [place] [address] 00385 Urea nitrogen [Mass/Vol] 15 mg/dL Normal 6-23 [facility] Comment on above: Performed By: #### 2 4323-8 #### FRANKY SIBLEY ([id number]) [facility] ([facility]) [address] [place] [address] 94694 Cyclic citrullinated peptide Ab.IgGon 03-11-2024 Cyclic citrullinated peptide IgG Qn <1 Normal <3 [facility] Comment on above: Order Comment: THE T [...] By: #### 3 3935-8 #### JOHN Longo ([id number]) [facility] ([facility]) [address] [place] [address] ESR Westergren method (Bld) [Velocity]on 03-11-2024 ESR (Bld) [Velocity] 29 mm/h High 0-20 [facility] Comment on above: Performed By: #### 4 537-7 #### FRANKY SIBLEY ([id number]) [facility] ([facility]) [address] [place] [address] 22169 Nuclear Abon 03-11-2024 Nuclear Ab Hep2 substrate Ql (S) Negative Normal Negative [facility] Comment on above: Result Comment: The Antinuclear Antibody (AMIE) test was performed using indirect immunofluorescence assay with HEp-2 cells slide. Performed By: #### 5 9069-5 #### JOHN JUARESER L ([id number]) [facility] ([facility]) [address] [place] [address] Rheumatoid factoron 03-11-20 24 Rheumatoid factor Nephelometry Qn (S) <10 Normal 0-15 [facility] Comment on above: Performed By: #### 1 5205-8 #### JOHN Longo ([id number]) [facility] ([facility]) [address] [place] [address] HCG ( test) IA.rapi d Ql (U)Ordered By: Suly Stephens on 09-25-2023 HCG ( test) Ql (U) Negative NEGATIVE [facility] Interpretation and review of laboratory results Normal [facility] US Abdomenon 08-10-2023 1. Limited, but meg sly unremarkable ultrasound of the abdomen. MACRO: None Signed by: Maninder Mercado 08/10/2023 7:27 AM Dictation workstation: [id number] [facility] Interpreted By: Maninder Hernandes, STUDY: US ABDOMEN COMPLETE; 08/09/2023 8:14 am INDICATION: Signs/Symptoms:pain. COMPARISON: 10/18/2022 ACCESSION NUMBER(S): [id number] ORDERING CLINICIAN: GUS BRADLEY TECHNIQUE: Multiple images [...] am INDICATION: Signs/Symptoms:pain. COMPARISON: 10/18/2022 ACCESSION NUMBER(S): [id number] ORDERING CLINICIAN: GUS BRADLEY TECHNIQUE: Multiple images [...] Maninder Mercado 08/10/2023 7:27 AM Dictation workstation: [id number] [facility] Work Phone: US AbdomenOrdered By: Maninder Renae on 08-10-2023 [facility] Work Phone: US Abdomenon 08-09-2023 Radiology Study observation (narrative) [facility] Work Phone: NM Gallbladder Views W emily [...] as stated. This study was interpreted at [place], [place]. MACRO: None Signed by: Myriam Montoya 08/02/2023 4:33 PM Dictation workstation: [id number] [facility] Interpreted By: Myriam Montoya and Ravi Shweta STUDY: NM HEPATOBILIARY W CHOLECYSTOKININ; 08/02/2023 11:09 am INDICATION: Signs/Symptoms:ruq pain. COMPARISON: Hepatobiliary scan 10/25/2022, gallbladder ultrasound on 09/28 ACCESSION NUMBER(S): [id number] ORDERING CLINICIAN: EVELYN BUSCH TECHNIQUE: DIVISION OF [...] 10/25/2022, gallbladder ultrasound on 09/28 ACCESSION NUMBER(S): [id number] ORDERING CLINICIAN: EVELYN BUSCH TECHNIQUE: DIVISION OF [...] as stated. This study was interpreted at [place], [place]. MACRO: None Signed by: Myriam Montoya 08/02/2023 4:33 PM Dictation workstation: [id number] [facility] Work Phone: Radiology Study observation (narrative) [facility] Work Phone: [place] Gallbladder Views W emily cystokinin and W radionuclide IVOrdered By: Myriam Montoya on 08-02-2023 [facility] Work Phone: COVID Quick Testingon 2022 Result Negative [employer] Other Quick Strepon 07-06-2023 S. pyogenes Org specific cx Ql (Throat) Positive [employer] Other Quick Strep [employer] Other Office Visit (Neuro-General) on 07-05-2023 Follow-up [...] History of Knee surgery Left knee 2019 Famil (more content not included)... Normal [facility] Falls Screening (Age 18+)on 06-19-2023 Adult depression screening assessment No [facility] [address] Work Phone: Fall risk assessment a) No falls within the last year [facility] [address] Work Phone: Office Visit (Neuro-General) on 06-19-2023 Follow-up visit Provider Impressions Follow up with [facility]. Patient Discussion/Summary Continue Qulipta for prevention. Continue Trudhesa as needed for rescue. Please call our office at [phone] to leave a message with my office secretary if you have any questions or concerns. Please contact me on the [employer] application if you cannot reach me [...] effective. Aimovig not as helpful as the Ajovy [...] a few days a month with headache. [place]ton energized and semi-normal at the time. Prednisone [...] her wedding day without any headache issues. Hot shower, [...] LMPon 01-17-2023 Last menstrual period start date [facility] [address] Work Phone: Laboratory - Cytologyon 01-05 Cytology report Cyto stain.thin prep Doc (Cvx/Vag) [facility] [address] [place] Work Phone: PERIANESTHESIA NURSE - Office Visiton 01-05 PERIANESTHESIA NURSE - Office Visit Diagnoses/Problems Health Maintenance/Risks Encounter for preventive health examination (V70.0) (Z00.00) Orders PAP INSOLE DOUBLER, Cytology; Status:In Progress - Specimen/Data Collected,Retrospective Authorization; Done: [id number] Last Menstrual Period (LMP): : BC PAP [...] Capsuletake as needed Vitals Vital Signs Recorded: [id number] 08:58AM Xkxxyxtw064 Xqoycascf22 Height5 ft 4 in Upficl531 lb 5.71 oz BMI Xnirdqwerr21.25 kg/m2 BSA Calculated1.98 LMPBC Physical Exam Constitutional: Alert and in no acute distress. (more content not included)... Normal [facility] 360 CBCon 01-05-2023 Erythrocyte distribution width (RBC) [Ratio] 13.2 % Normal 11.5 - 14.5 [facility] Comment on above: Performed By: #### C BC #### [address] [address] Hematocrit (Bld) [Volume fraction] 39.8 % Normal 36.0 - 46.0 [facility] Comment on above: Performed By: #### C BC #### [address] [address] Hemoglobin (Bld) [Mass/Vol] 12.4 g/dL Normal 12.0 - 16.0 [facility] Comment on above: Performed By: #### C BC #### [address] [address] MCHC (RBC) [Mass/Vol] 31.2 g/dL Low 32.0 - 36.0 [facility] Comment on above: Performed By: #### C BC #### [address] [address] MCV (RBC) [Entitic vol] 95 fL Normal 80 - 100 [facility] Comment on above: Performed By: #### C BC #### [place] [id number] Platelets (Bld) [#/Vol] 387 10*3/uL Normal 150 - 450 [facility] Comment on above: Performed By: #### C BC #### [place] [id number] RBC 4.19 x10E12/L Normal 4.00 - 5.20 [facility] [place] Comment on above: Performed By: #### C BC #### [place] [id number] WBC (Bld) [#/Vol] 8.1 10*3/uL Normal 4.4 - 11.3 [facility] Comment on above: Performed By: #### C BC #### [place] [id number] COMPREHENSIVE PANELon 2022 Albumin [Mass/Vol] 4.5 g/dL Normal 3.4 - 5.0 [facility] Comment on above: Performed By: #### C MP #### [address] [address] ALP [Catalytic activity/Vol] 50 U/L Normal 33 - 110 [facility] Comment on above: Performed By: #### C MP #### [address] [address] ALT [Catalytic activity/Vol] 10 U/L Normal 7 - 45 [facility] Comment on above: Result Comment: Tori ents treated with Sulfasalazine may generate falsely decreased results for ALT. Performed By: #### C MP #### [place] [id number] Anion gap [Moles/Vol] 13 mmol/L Normal 10 - 20 [facility] Comment on above: Performed By: #### C MP #### [address] [address] AST [Catalytic activity/Vol] 13 U/L Normal 9 - 39 [facility] Comment on above: Performed By: #### C MP #### [address] [address] Bilirubin [Mass/Vol] 0.4 mg/dL Normal 0.0 - 1.2 [facility] Comment on above: Performed By: #### C MP #### [address] [address] Calcium [Mass/Vol] 9.9 mg/dL Normal 8.6 - 10.3 [facility] Comment on above: Performed By: #### C MP #### [address] [address] Chloride [Moles/Vol] 109 mmol/L High 98 - 107 [facility] Comment on above: Performed By: #### C MP #### [address] [address] Creatinine [Mass/Vol] 0.97 mg/dL Normal 0.50 - 1.05 [facility] Comment on above: Performed By: #### C MP #### [address] [address] GFR/1.73 sq M.predicted among non-blacks MDRD (S/P/Bld) [Vol rate/Area] 82 mL/min/{1.73_m2} Normal >90 [facility] Comment on above: Result Comment: CALC ULATIONS OF ESTIMATED GFR ARE PERFORMED USING THE 2020 CKD-EPI STUDY REFIT EQUATION WITHOUT THE RACE VARIABLE FOR THE IDMS-TRACEABLE CREATININE METHODS. https://jasn.asnjournals.org/content/early/ASN.3607676 988 Performed By: #### C MP #### [address] [address] Glucose [Mass/Vol] 86 mg/dL Normal 74 - 99 [facility] Comment on above: Performed By: #### C MP #### [address] [address] HCO3 (Bld) [Moles/Vol] 21 mmol/L Normal 21 - 32 [facility] Comment on above: Performed By: #### C MP #### [address] [address] Potassium [Moles/Vol] 3.8 mmol/L Normal 3.5 - 5.3 [facility] Comment on above: Performed By: #### C MP #### [address] [address] Protein [Mass/Vol] 7.7 g/dL Normal 6.4 - 8.2 [facility] Comment on above: Performed By: #### C MP #### [address] [address] Sodium [Moles/Vol] 139 mmol/L Normal 136 - 145 [facility] Comment on above: Performed By: #### C MP #### [address] [address] Urea nitrogen [Mass/Vol] 17 mg/dL Normal 6 - 23 [facility] Comment on above: Performed By: #### C MP #### [address] [address] Laboratory - Chemistry and C hemistry - challengeon 01-05-2023 Albumin BCP dye [Mass/Vol] 4.5 g/dL 3.4 - 5.0 [facility] Work Phone: ALP [Catalytic activity/Vol] 50 U/L 33 - 110 [facility] Work Phone: ALT With P-5'-P [Catalytic activity/Vol] 10 U/L 7 - 45 [facility] Work Phone: Comment on above: Patients treated wit h Sulfasalazine may generate falsely decreased results for ALT. Anion gap [Moles/Vol] 13 mmol/L 10 - 20 [facility] Work Phone: AST With P-5'-P [Catalytic activity/Vol] 13 U/L 9 - 39 [facility] Work Phone: [phone] Bilirubin [Mass/Vol] 0.4 mg/dL 0.0 - 1.2 [facility] Work Phone: [phone] Calcium [Mass/Vol] 9.9 mg/dL 8.6 - 10.3 [facility] Work Phone: [phone] Chloride [Moles/Vol] 109 mmol/L above high threshold 98 - 107 [facility] Work Phone: [phone] CO2 [Moles/Vol] 21 mmol/L 21 - 32 [facility] Work Phone: [phone] Creatinine [Mass/Vol] 0.97 mg/dL See Below [facility] Work Phone: [phone] Comment on above: Reference Range: 0.5 0 - 1.05 Glucose [Mass/Vol] 86 mg/dL 74 - 99 [facility] Work Phone: [phone] Potassium [Moles/Vol] 3.8 mmol/L 3.5 - 5.3 [facility] Work Phone: [phone] Protein [Mass/Vol] 7.7 g/dL 6.4 - 8.2 [facility] Work Phone: [phone] Sodium [Moles/Vol] 139 mmol/L 136 - 145 [facility] Work Phone: [phone] Urea nitrogen [Mass/Vol] 17 mg/dL 6 - 23 [facility] Work Phone: [phone] Laboratory - Hematology and Cell countson 01-05-2023 Erythrocyte distribution width (RBC) [Ratio] 13.2 % See Below [facility] Work Phone: [phone] Comment on above: Reference Range: 11. 5 - 14.5 Hematocrit (Bld) [Volume fraction] 39.8 % See Below [facility] Work Phone: Comment on above: Reference Range: 36. 0 - 46.0 Hemoglobin (Bld) [Mass/Vol] 12.4 g/dL See Below [facility] Work Phone: Comment on above: Reference Range: 12. 0 - 16.0 MCHC (RBC) [Mass/Vol] 31.2 g/dL below low threshold See Below [facility] Work Phone: Comment on above: Reference Range: 32. 0 - 36.0 MCV (RBC) [Entitic vol] 95 fL 80 - 100 [facility] Work Phone: Platelets (Bld) [#/Vol] 387 10*3/uL 150 - 450 [facility] Work Phone: RBC (Bld) [#/Vol] 4.19 {x10E12/L} See Below [facility] Work Phone: Comment on above: Reference Range: 4.0 0 - 5.20 WBC (Bld) [#/Vol] 8.1 10*3/uL 4.4 - 11.3 [facility] Work Phone: No Panel Informationon 01-05 82 {mL/min/1.73m2} >90 [facility] Work Phone: Comment on above: CALCULATIONS OF EVELYN MATED GFR ARE PERFORMED USING THE 2020 CKD-EPI STUDY REFIT EQUATION WITHOUT THE RACE VARIABLE FOR THE IDMS-TRACEABLE CREATININE METHODS.https://jasn.asnjournals.org/content//ASN .2466073289 TSHon 01-05-2023 TSH Qn 1.00 m[IU]/L Normal 0.44 - 3.98 [facility] Comment on above: Result Comment: TSH testing is performed using different testing methodology at [facility] than at [facility]. Direct result comparisons should only be made within the same method. Performed By: #### T SH2 #### [address] [address] TSH - Thyroid Stimulating Ho rmone, Serumon 01-05-2023 TSH Qn 1.00 m[IU]/L See Below [facility] Work Phone: Comment on above: Reference Range: 0.4 4 - 3.98 TSH testing is performed using different testing methodology at [facility] than at [facility]. Direct result comparisons should only be made within the same method. VITAMIN B12on 01-05-2023 Cobalamin (Vitamin B12) [Mass/Vol] 384 pg/mL Normal 211 - 911 [facility] Comment on above: Performed By: #### V TB12 #### [address] [address] Vitamin B12, Serumon 023 Cobalamin (Vitamin B12) [Mass/Vol] 384 pg/mL 211 - 911 [facility] Work Phone: Office Visit (Neuro-General) [...] 12-06-2022 Last menstrual period [facility] date [facility]: PERIANESTHESIA NURSE - Office Visiton PERIANESTHESIA NURSE - Office Visit Diagnoses/Problems Assessed Contraception management [...] needed Vitals Vital Signs Recorded: 06Dec2022 10:50AM Kstcsulk162 Gcceyljgy52 Height5 ft 4 in Ldkgfc806 lb 11.26 oz BMI Convtjjlke07.97 kg/m2 BSA Calculated1.97 LMPdepo Physical Exam Constitutional: Alert and in no acute distress. Well developed, well nourished Psychiatric: mally (more content not included)... Normal [facility] Office Visit (Neuro-General) on 11-19-2022 Follow-up visit [...] R14.0: Abdominal bloating. COMPARISON: None. ACCESSION NUMBER(S): [id number] ORDERING CLINICIAN: EVELYN BUSCH TECHNIQUE: DIVISION OF [...] as stated. This study was interpreted at [place], [place]. Electronically signed by: SHANTAL SALMERON MD [facility] NM Biliary with EF w/wo CCKo n 10-25-2022 NM Biliary with EF w/wo CCK Normal [facility] Work Phone: Radiologyon 10-18-2022 US Gallbladder Normal [facility] Work Phone: Blood Pressure Cuff Sizeon 0 10-10-2022 Fall risk assessment a) No falls within the last year [facility] Work Phone: Tobacco use status CPHS b) No [facility] Work Phone: Blood Pressure Cuff Size Adult [facility] Work Phone: Office Visit (Internal [...] vomiting; LAXMI = N; Verified Transmission to [facility]; Last Updated By: Slava Colindres; 10/10/2022 [...] prn for migraines. Pt reports that on [place] even she was sitting playing cards and she had sudden sharp severe Pain in RLQ. Lasted for a few minutes, got up [place] and the pain was a 3/4 dull brittnee, was there all day, no appetite, tried eating mashed potatoes for dinner and that made her nauseas. Was getting the sharp pain intermittently all day. A few days after [place] and the same thing happened again so [...] (V16.1) ( (more content not included)... Normal [facility] BASIC METABOLIC PANELon 12-2 Anion gap [Moles/Vol] 13 mmol/L Normal 10 - 20 [facility] Comment on above: Performed By: #### B MP #### [address] [address] Calcium [Mass/Vol] 9.2 mg/dL Normal 8.6 - 10.3 [facility] Comment on above: Performed By: #### B MP #### [address] [address] Chloride [Moles/Vol] 104 mmol/L Normal 98 - 107 [facility] Comment on above: Performed By: #### B MP #### [address] [address] Creatinine [Mass/Vol] 1.01 mg/dL Normal 0.50 - 1.05 [facility] Comment on above: Performed By: #### B MP #### [address] [address] GFR/1.73 sq M.predicted among non-blacks MDRD (S/P/Bld) [Vol rate/Area] 78 mL/min/{1.73_m2} Normal >90 [facility] Comment on above: Result Comment: CALC ULATIONS OF ESTIMATED GFR ARE PERFORMED USING THE 2020 CKD-EPI STUDY REFIT EQUATION WITHOUT THE RACE VARIABLE FOR THE IDMS-TRACEABLE CREATININE METHODS. https://jasn.asnjournals.org/content/early/ASN.6734455 988 Performed By: #### B MP #### [place] [id number] Glucose [Mass/Vol] 94 mg/dL Normal 74 - 99 [facility] Comment on above: Performed By: #### B MP #### [address] [address] HCO3 (Bld) [Moles/Vol] 23 mmol/L Normal 21 - 32 [facility] Comment on above: Performed By: #### B MP #### [address] [address] Potassium [Moles/Vol] 3.1 mmol/L Low 3.5 - 5.3 [facility] Comment on above: Performed By: #### B MP #### [address] [address] Sodium [Moles/Vol] 137 mmol/L Normal 136 - 145 [facility] Comment on above: Performed By: #### B MP #### [address] [address] Urea nitrogen [Mass/Vol] 15 mg/dL Normal 6 - 23 [facility] Comment on above: Performed By: #### B MP #### [address] [address] CBC AND DIFFERENTIALon 10-02 % AUTOMATED IMMATURE GRAN 0.2 % Normal 0.0 - 0.9 [facility] Comment on above: Result Comment: Sylwia ture Granulocyte Count (IG) includes promyelocytes, myelocytes and metamyelocytes but does not include bands. Percent differential counts (%) should be interpreted in the context of the absolute cell counts (cells/L). Performed By: #### C BCDF #### [address] [address] Basophils (Bld) [#/Vol] 0.12 10*3/uL High 0.00 - 0.10 [facility] Comment on above: Performed By: #### C BCDF #### [address] [address] Basophils/100 WBC (Bld) 1.1 % Normal 0.0 - 2.0 [facility] Comment on above: Performed By: #### C BCDF #### [address] [address] Eosinophils (Bld) [#/Vol] 0.21 10*3/uL Normal 0.00 - 0.70 [facility] Comment on above: Performed By: #### C BCDF #### [address] [address] Eosinophils/100 WBC (Bld) 1.9 % Normal 0.0 - 6.0 [facility] Comment on above: Performed By: #### C BCDF #### [address] [address] Erythrocyte distribution width (RBC) [Ratio] 12.1 % Normal 11.5 - 14.5 [facility] Comment on above: Performed By: #### C BCDF #### [address] [address] Hematocrit (Bld) [Volume fraction] 38.3 % Normal 36.0 - 46.0 [facility] Comment on above: Performed By: #### C BCDF #### [address] [address] Hemoglobin (Bld) [Mass/Vol] 12.2 g/dL Normal 12.0 - 16.0 [facility] Comment on above: Performed By: #### C BCDF #### [address] [address] Lymphocytes (Bld) [#/Vol] 4.09 10*3/uL Normal 1.20 - 4.80 [facility] Comment on above: Performed By: #### C BCDF #### [address] [address] Lymphocytes/100 WBC (Bld) 36.6 % Normal 13.0 - 44.0 [facility] Comment on above: Performed By: #### C BCDF #### [address] [address] MCHC (RBC) [Mass/Vol] 31.9 g/dL Low 32.0 - 36.0 [facility] Comment on above: Performed By: #### C BCDF #### [address] [address] MCV (RBC) [Entitic vol] 94 fL Normal 80 - 100 [facility] Comment on above: Performed By: #### C BCDF #### [address] [address] Monocytes (Bld) [#/Vol] 0.87 10*3/uL Normal 0.10 - 1.00 [facility] Comment on above: Performed By: #### C BCDF #### [address] [address] Monocytes/100 WBC (Bld) 7.8 % Normal 2.0 - 10.0 [facility] Comment on above: Performed By: #### C BCDF #### [address] [address] Neutrophils (Bld) [#/Vol] 5.86 10*3/uL Normal 1.20 - 7.70 [facility] Comment on above: Result Comment: Perc ent differential counts (%) should be interpreted in the context of the absolute cell counts (cells/L). Performed By: #### C BCDF #### [address] [address] Neutrophils/100 WBC (Bld) 52.4 % Normal 40.0 - 80.0 [facility] Comment on above: Performed By: #### C BCDF #### [address] [address] Platelets (Bld) [#/Vol] 350 10*3/uL Normal 150 - 450 [facility] Comment on above: Performed By: #### C BCDF #### [address] [address] RBC 4.07 x10E12/L Normal 4.00 - 5.20 [facility] Comment on above: Performed By: #### C BCDF #### [address] [address] WBC (Bld) [#/Vol] 11.2 10*3/uL Normal 4.4 - 11.3 [facility] Comment on above: Performed By: #### C BCDF #### [address] [address] [address] ABDOMEN AND PELVIS W IV C ONTRASTon 10-02-2022 CT ABDOMEN AND PELVIS W IV CONTRAST Patient Name: JENNIFER HENLEY STUDY: CT ABDOMEN AND PELVIS W IV CONTRAST; 10/02/2022 5:12 am INDICATION: RLQ abd pain . COMPARISON: None. ACCESSION NUMBER(S): [id number] ORDERING CLINICIAN: FILI BRIGGS TECHNIQUE: Axial CT [...] Electronically signed by: WILBER YOUNG MD Normal [facility] CT Abdomen and Pelvis with I V Contraston 10-02-2022 CT Abdomen and Pelvis W contrast IV Normal [facility] Work Phone: Complete Blood Count + Diffvianca ceja 10-02-2022 Basophils/100 WBC (Bld) 1.1 % 0.0 - 2.0 [facility] Work Phone: [phone] Erythrocyte distribution width (RBC) [Ratio] 12.1 % See Below [facility] Work Phone: [phone] Comment on above: Reference Range: 11. 5 - 14.5 Hematocrit (Bld) [Volume fraction] 38.3 % See Below [facility] Work Phone: [phone] Comment on above: Reference Range: 36. 0 - 46.0 Hemoglobin (Bld) [Mass/Vol] 12.2 g/dL See Below [facility] Work Phone: [phone] Comment on above: Reference Range: 12. 0 - 16.0 Lymphocytes/100 WBC (Bld) 36.6 % See Below [facility] Work Phone: [phone] Comment on above: Reference Range: 13. 0 - 44.0 MCHC (RBC) [Mass/Vol] 31.9 g/dL below low threshold See Below [facility] Work Phone: [phone] Comment on above: Reference Range: 32. 0 - 36.0 MCV (RBC) [Entitic vol] 94 fL 80 - 100 [facility] Work Phone: [phone] Monocytes/100 WBC (Bld) 7.8 % 2.0 - 10.0 [facility] Work Phone: [phone] Neutrophils/100 WBC (Bld) 52.4 % See Below [facility] Work Phone: [phone] Comment on above: Reference Range: 40. 0 - 80.0 Platelets (Bld) [#/Vol] 350 10*3/uL 150 - 450 [facility] Work Phone: [phone] RBC (Bld) [#/Vol] 4.07 {x10E12/L} See Below [facility] Work Phone: Comment on above: Reference Range: 4.0 0 - 5.20 WBC (Bld) [#/Vol] 11.2 10*3/uL 4.4 - 11.3 [facility] Work Phone: Complete Blood Count + Differential 0.12 {x10E9/L} above high threshold See Below [facility] Work Phone: Comment on above: Reference Range: 0.0 0 - 0.10 Complete Blood Count + Differential 0.21 {x10E9/L} See Below [facility] Work Phone: Comment on above: Reference Range: 0.0 0 - 0.70 Complete Blood Count + Differential 0.87 {x10E9/L} See Below [facility] Work Phone: Comment on above: Reference Range: 0.1 0 - 1.00 Complete Blood Count + Differential 4.09 {x10E9/L} See Below [facility] Work Phone: Comment on above: Reference Range: 1.2 0 - 4.80 Complete Blood Count + Differential 5.86 {x10E9/L} See Below [facility] Work Phone: Comment on above: Reference Range: 1.2 0 - 7.70 Percent differential counts (%) should be interpreted in the context of the absolute cell counts (cells/L). Complete Blood Count + Differential 1.9 % 0.0 - 6.0 [facility] Work Phone: Complete Blood Count + Differential 0.2 % 0.0 - 0.9 [facility] Work Phone: Comment on above: Immature Granulocyte Count (IG) includes promyelocytes, myelocytes and metamyelocytes but does not include bands. Percent differential counts (%) should be interpreted in the context of the absolute cell counts (cells/L). HEPATIC FUNCTION PANELon Albumin [Mass/Vol] 4.4 g/dL Normal 3.4 - 5.0 [facility] Comment on above: Performed By: #### H EPFP #### [address] [address] ALP [Catalytic activity/Vol] 59 U/L Normal 33 - 110 [facility] Comment on above: Performed By: #### H EPFP #### [address] [address] ALT [Catalytic activity/Vol] 14 U/L Normal 7 - 45 [facility] Comment on above: Result Comment: Tori ents treated with Sulfasalazine may generate falsely decreased results for ALT. Performed By: #### H EPFP #### [address] [address] AST [Catalytic activity/Vol] 14 U/L Normal 9 - 39 [facility] Comment on above: Performed By: #### H EPFP #### [address] [address] Bilirubin [Mass/Vol] 0.6 mg/dL Normal 0.0 - 1.2 [facility] Comment on above: Performed By: #### H EPFP #### [address] [address] Bilirubin.indirect [Mass/Vol] 0.1 mg/dL Normal 0.0 - 0.3 [facility] Comment on above: Performed By: #### H EPFP #### [address] [address] Protein [Mass/Vol] 7.4 g/dL Normal 6.4 - 8.2 [facility] Comment on above: Performed By: #### H EPFP #### [address] [address] Hepatic Function Panelon Albumin BCP dye [Mass/Vol] 4.4 g/dL 3.4 - 5.0 [facility] Work Phone: [phone] ALP [Catalytic activity/Vol] 59 U/L 33 - 110 [facility] Work Phone: [phone] ALT With P-5'-P [Catalytic activity/Vol] 14 U/L 7 - 45 [facility] Work Phone: [phone] Comment on above: Patients treated wit h Sulfasalazine may generate falsely decreased results for ALT. AST With P-5'-P [Catalytic activity/Vol] 14 U/L 9 - 39 [facility] Work Phone: [phone] Bilirubin [Mass/Vol] 0.6 mg/dL 0.0 - 1.[address] [facility] [facility] Work Phone: [phone] Bilirubin.direct [Mass/Vol] 0.1 mg/dL 0.0 - 0.3 [facility] Work Phone: [phone] Protein [Mass/Vol] 7.4 g/dL 6.4 - 8.2 [facility] Work Phone: [phone] LACTATEon 10-02-2022 Lactate [Moles/Vol] 0.7 mmol/L Normal 0.4 - 2.0 [facility] Comment on above: Result Comment: Jocelyne puncture immediately after or during the administration of Metamizole may lead to falsely low results. Testing should be performed immediately prior to Metamizole dosing. Performed By: #### L ACT #### [place] [id number] LIPASEon 10-02-2022 Lipase [Catalytic activity/Vol] 46 U/L Normal 9 - 82 [facility] Comment on above: Result Comment: Jocelyne puncture immediately after or during the administration of Metamizole may lead to falsely low results. Testing should be performed immediately prior to Metamizole dosing. R-vpfpns-u-benzoquinone imine (metabolite of Acetaminophen) will generate erroneously low results in samples for patients that have taken toxic doses of acetaminophen. Performed By: #### L IPAS #### [place] [id number] Laboratory - Chemistry and C hemistry - challengeon 10-02-2022 Anion gap [Moles/Vol] 13 mmol/L 10 - 20 [facility] Work Phone: [phone] Calcium [Mass/Vol] 9.2 mg/dL 8.6 - 10.3 [facility] Work Phone: [phone] Chloride [Moles/Vol] 104 mmol/L 98 - 107 [facility] Work Phone: [phone] CO2 [Moles/Vol] 23 mmol/L 21 - 32 [facility] Work Phone: [phone] Creatinine [Mass/Vol] 1.01 mg/dL See Below [facility] Work Phone: [phone] Comment on above: Reference Range: 0.5 0 - 1.05 Glucose [Mass/Vol] 94 mg/dL 74 - 99 [facility] Work Phone: [phone] Potassium [Moles/Vol] 3.1 mmol/L below low threshold 3.5 - 5.3 [facility] Work Phone: [phone] Sodium [Moles/Vol] 137 mmol/L 136 - 145 [facility] Work Phone: [phone] Urea nitrogen [Mass/Vol] 15 mg/dL 6 - 23 [facility] Work Phone: [phone] Lactate, Levelon 10-02-2022 Lactate [Moles/Vol] 0.7 mmol/L 0.4 - 2.0 [facility] Work Phone: [phone] Comment on above: Venipuncture immedia tely after or during the administration of Metamizole may lead to falsely low results. Testing should be performed immediately prior to Metamizole dosing. Lipase, Serumon 10-02-2022 Lipase [Catalytic activity/Vol] 46 U/L 9 - 82 [facility] Work Phone: Comment on above: Venipuncture immedia tely after or during the administration of Metamizole may lead to falsely low results. Testing should be performed immediately prior to Metamizole dosing. N-zdxnjm-x-benzoquinone imine (metabolite of Acetaminophen) will generate erroneously low results in samples for patients that have taken toxic doses of acetaminophen. No Panel Informationon 10-02 78 {mL/min/1.73m2} >90 [facility] Work Phone: Comment on above: CALCULATIONS OF EVELYN MATED GFR ARE PERFORMED USING THE 2020 CKD-EPI STUDY REFIT EQUATION WITHOUT THE RACE VARIABLE FOR THE IDMS-TRACEABLE CREATININE METHODS.https://jasn.asnjournals.org/content//ASN .7695418583 Provider Note - ED v3on - Provider Note - ED v3 Provider Note: Chart Review: ED NOTES ED NOTES: HPI: Patient is a 26-year-old female chief complaint of right lower quadrant abdominal pain. It started Mauricio Ivone and was fairly sharp. It was fairly dull or Mauricio however today, the day after [place] and tonight it increased and it sharpness [...] Alert and oriented x4, GCS 15 , bar attendant II-XII grossly intact. Sensation and motor function of extremities grossly intact. Psych: Appropriate mood and affect. I have reviewed and confirmed nurses/medics notes for patient past, social and family history. Portions of this note were dictated by speech recognition. An attempt at proof reading was made to minimize errors. Minor errors in amphibious operations officer may be present. HISTORY OF PRESENTING ILLNESS [...] Medical History Description:IBS Description:Migraines Past Surgical History Description:natashaoste otomy CRITICAL CARE RESULTS: Recent Lab Results: [...] 1.1 Neutro (more content not included)... Normal [facility] Risk Screen - Adult Emergenc yon 10-02-2022 Risk Screen - Adult Emergency Preferred Language: Preferred Language: Preferred Language for Discussing Health Care (patient/designee)Citizen Of [place] Patient Preferred Pharmacy: Patient Preferred Pharmacy Statement: [...] material; verbal instruction Cultural Considerationsnone Developmental Considerationsnone Taoism Considerationsnone Learning Assessment (Other Learner): Learning Assessment (Other Learner): Other learner availableno Pressure Injury/TB/Substance: Pressure Injury: Do you have a coughno Smoking Statusnever smoker Admission Risk Screen: Significant IndicatorsComplete CAGE: CAGE: Is this an injured patient at a Trauma Center ([facility]/[place]/ [place]): no Electronic Signatures: Maris Montez (RN) (Signed 02-Oct-2022 05:53) Authored: Preferred Language, Patient Preferred Pharmacy, Advanced Directives, Family Violence Adult, Learning Assessment (Patient), Learning Assessment (Other Learner), Pressure Injury/TB/Substance, Pressure Injury, CAGE Last Updated: 02-Oct-2022 05:53 by Maris Montez (RN) [facility] Triage - EDon 10-02-2022 Triage - ED [...] BMI (kg/m2): 31.810 Calculated BSA (m2) 1.95 Rosario Coma Scale: Best Eye Response: (E4) spontaneous [...] Medical History Reviewedyes Electronic Signatures: Jenni Pascal (ASHLEY PRN) (Signed 02-Oct-2022 03:33) Authored: Quick Triage, Risk Screens, Pain, Travel History, Chart Review, Scores, Past Medical History Last Updated: 02-Oct-2022 03:33 by Jenni Pascal (ASHLEY PRN) Normal [facility] UA MICROSCOPICon 10-02-2022 BACTERIA 2+ /HPF Abnormal [facility] Comment on above: Performed By: #### C BCDF #### [place] [address] Mucus Ql (Urine sed) 4+ /LPF Normal [facility] Comment on above: Performed By: #### C BCDF #### [place] [address] RBC 4 /HPF Normal 0-5 [facility] Comment on above: Performed By: #### C BCDF #### [place] [address] SQUAMOUS EPITH. CELLS 6 /HPF Normal [facility] Comment on above: Performed By: #### C BCDF #### [place] [address] WBC 20 /HPF Abnormal 0-5 [facility] Comment on above: Performed By: #### C BCDF #### [place] [address] URINALYSISon 10-02-2022 Appearance (U) HAZY Normal CLEAR [facility] Comment on above: Performed By: #### U A #### [place] [address] Bilirubin Ql (U) SMALL(1+) Abnormal NEGATIVE [facility] Comment on above: Performed By: #### U A #### [place] [address] Color (U) YELLOW Normal STRAW,YELLOW [facility] Comment on above: Performed By: #### U A #### [place] [address] Glucose Ql (U) Negative Normal NEGATIVE [facility] Comment on above: Performed By: #### U A #### [place] [address] Hemoglobin Ql (U) Negative Normal NEGATIVE [facility] Comment on above: Performed By: #### U A #### [place] [address] Ketones Ql (U) 25 (1+) Abnormal NEGATIVE [facility] Comment on above: Performed By: #### U A #### [place] [address] Leukocyte esterase Test strip Ql (U) TRACE Abnormal NEGATIVE [facility] Comment on above: Performed By: #### U A #### [place] [address] Nitrite Ql (U) Negative Normal NEGATIVE [facility] Comment on above: Performed By: #### U A #### [place] [address] pH (U) 5.5 [pH] Normal 5.0 - 8.0 [facility] Comment on above: Performed By: #### U A #### [place] [address] Protein Ql (U) TRACE Normal NEGATIVE [facility] Comment on above: Performed By: #### U A #### [place] [address] Specific gravity (U) [Rel density] >1.035 Abnormal 1.005 - 1.035 [facility] Comment on above: Performed By: #### U A #### [place] [id number] Urobilinogen (U) [Mass/Vol] mg/dL Normal 0.0 - 1.9 [facility] Comment on above: Performed By: #### U A #### [facility] [address] [place] [address] Urinalysison 10-02-2022 Color (U) YELLOW See Below [facility] Work Phone: [phone] Comment on above: Reference Range: STR AW,YELLOW Glucose Ql (U) Negative NEGATIVE [facility] Work Phone: [phone] Ketones Ql (U) 25 (1+) Abnormal NEGATIVE [facility] Work Phone: [phone] Leukocyte esterase Test strip Ql (U) TRACE Abnormal NEGATIVE [facility] Work Phone: [phone] pH (U) 5.5 [pH] 5.0 - 8.0 [facility] Work Phone: [phone] Protein (U) [Mass/Vol] TRACE NEGATIVE [facility] Work Phone: [phone] RBC (U) [#/Vol] Negative NEGATIVE [facility] Work Phone: [phone] Specific gravity (U) [Rel density] >1.035 Abnormal See Below [facility] Work Phone: [phone] Comment on above: Reference Range: 1.0 05 - 1.035 Urinalysis Negative NEGATIVE [facility] Work Phone: [phone] Urinalysis <2.0 0.0 - 1.9 [facility] Work Phone: [phone] Urinalysis SMALL(1+) Abnormal NEGATIVE [facility] Work Phone: [phone] Urinalysis HAZY CLEAR [facility] Work Phone: [phone] Urinalysis, Microscopicon Urinalysis, Microscopic 4+ [facility] Work Phone: [phone] Urinalysis, Microscopic 2+ Abnormal [facility] Work Phone: [phone] Urinalysis, Microscopic 6 {/HPF} [facility] Work Phone: Urinalysis, Microscopic 4 {/HPF} 0-5 [facility] Work Phone: Urinalysis, Microscopic 20 {/HPF} Abnormal 0-5 [facility] Work Phone: Office Visit (Neuro-General) on 08-15-2022 Follow-up visit Patient Discussion/Summary Referral to neuro-autonomic specialist for episodes of lighheadedness, tachycardia, dizziness that occurs while standing or going up stairs. Tilt-table testing. Continue Qulipta for migraine prevention. Trudhesa not covered. We will submit an appeal letter. Continue exercise from physical therapy. Please call our office at [phone] to leave a message with my office secretary if you have any questions or concerns. Please contact me on the Legal Egg application if you cannot reach me through [...] a few days a month with headache. [place] energized and semi-normal at the time. Prednisone [...] during headache, (more content not included)... Normal [facility] Cardiac Stress Teston 2021 [place] [address] [id number], Exercise Stress Test Patient Name: JENNIFER HENLEY Ordering Physician: Study Date: 07/26/2022 Reading Physician: [id number] Campos MD MRN/PID: [id number] Supervising Sang Campos Physician: Accession/Order#: [id number] Referring Physician: Sang Campos MD Date of : 1995 PCP: Gender: F Fellow: Admit Date: 07/26/2022 Fellow: Admission Status: Outpatient Full Stack Engineer: Minerva Betancourt RRT Height: 163.00 cm Nurse: N/A Weight: 89.00 kg Honeycomb Blanket Maker: N/A BSA: 1.94 m2 Technologist: BMI: 33.50 kg/m2 Additional Staff: Age: 26 years cc report to: Patient Location: [facility] Stress Lab cc report to: Study Type: Cardiac Stress Test Diagnosis/ICD: R07.89-Other chest pain Indication: Chest Pain and PALPATATIONS, PVC Procedure/CPT: Stress Test Interpretation-75080; Stress Test Supervision-[id number] Falls Risk: Low: Patient has low risk [...] on 07/26/2022 at 1:02:44 PM Final Normal [facility] Cardiac Stress Test [facility] 170 DO Work Phone: Echocardiogramon 07-26-2022 Echocardiography [facility] nter [address] [place] [address] [phone], TRANSTHORACIC ECHOCARDIOGRAM REPORT Patient Name: JENNIFER Ordaz Physician: Sang Campos MD Study Date: 07/26/2022 Referring Physician: Sang Campos MD MRN/PID: [id number] PCP: Accession/Order#: [id number] Department Location: [facility] Echo Lab Date of : 1995 Fellow: Gender: F Nurse: Admit Date: Honeycomb Blanket Maker: Amanda Thorpe [facility] Admission Status: Outpatient Additional Staff: Height: 162.56 cm CC Report to: Weight: 83.92 kg Study Type: Echocardiogram BSA: 1.89 m2 Blood Pressure: 132 /84 mmHg Diagnosis/ICD: R07.9-Chest pain, unspecified Indication: Chest Pain, Palps Procedure/CPT: Echo Complete w Full Doppler-[id number] Patient History: Pertinent History: No previous echo. [...] LA Area A2C: 9.0 cm2 LA Major Mayetta A4C: 3.9 cm LA Major Mayetta A2C: 3.2 cm LA Volume Index: 10.6 [...] 1.3 m/s (0.6-0.9m/s) PV Max P.2 mmHg [id number] Tobias Campos MD Electronically signed on 07/26/2022 at 12:15:16 PM Final Normal [facility] LIPID PANEL (CORONARY RISK 2 )on 07-26-2022 Cholesterol [Mass/Vol] 202 mg/dL High 0 - 199 [facility] Comment on above: Result Comment: . AGE [...] dosing. Performed By: #### L IPID #### [address] [address] Cholesterol in HDL [Mass/Vol] 61.0 mg/dL Normal [facility] Comment on above: Result Comment: . AGE VERY LOW LOW NORMAL HIGH 0-19 Y < 35 < 40 40-45 ---- 20-24 Y ---- < 40 >45 ---- >24 Y ---- < 40 40-60 >60 . Performed By: #### L IPID #### [address] [address] Cholesterol in LDL [Mass/Vol] 128 mg/dL High 0 - 99 [facility] Comment on above: Result Comment: . NEAR BORD AGE DESIRABLE OPTIMAL HIGH HIGH VERY HIGH 0-19 Y 0 - 109 --- 110-129 >/= 130 ---- 20-24 Y 0 - 119 --- 120-159 >/= 160 ---- >24 Y 0 - 99 100-129 130-159 160-189 >/=190 . Performed By: #### L IPID #### [address] [address] Cholesterol in VLDL [Mass/Vol] 13 mg/dL Normal 0 - 40 [facility] Comment on above: Performed By: #### L IPID #### [address] [address] Cholesterol.total/Ch olesterol in HDL [Mass ratio] 3.3 {ratio} Normal [facility] Comment on above: Result Comment: REF VALUES DESIRABLE < 3.4 HIGH RISK > 5.0 Performed By: #### L IPID #### [address] [address] Triglyceride [Mass/Vol] 65 mg/dL Normal 0 - 149 [facility] Comment on above: Result Comment: . AGE [...] dosing. Performed By: #### L IPID #### [address] [address] Lipid Panelon 10-2022 Cholesterol [Mass/Vol] 202 mg/dL above high threshold 0 - 199 [facility] 170 DO Work Phone: Comment on [...] dosing. Cholesterol in HDL [Mass/Vol] 61.0 mg/dL [facility] DO Work Phone: Comment on above: . AGE VERY LOW LOW N ORMAL HIGH 0-19 Y < 35 < 40 40-45 ---- 20- 24 Y ---- < 40 >45 ---- >24 Y ---- < 40 40-60 >60. Cholesterol in LDL [Mass/Vol] 128 mg/dL above high threshold 0 - 99 [facility] 170 DO Work Phone: Comment on above: . NEAR BORD AGE DIANELYS RABLE OPTIMAL HIGH HIGH VERY HIGH 0-19 Y 0 - 109 --- 110-129 >/= 130 ---- 20-24 Y 0 - 119 --- 120-159 >/= 160 ---- >24 Y 0 - 99 100-129 130-159 160-189 >/=190. Cholesterol.total/Ch olesterol in HDL [Mass ratio] 3.3 {ratio} -Neurology- [facility] 170 DO Work Phone: Comment on above: REF VALUESDESIRABLE < 3.4HIGH RISK > 5.0 Triglyceride [Mass/Vol] 65 mg/dL 0 - 149 -[facility]- [facility] 170 DO Work Phone: Comment [...] Lipid Panel 13 mg/dL 0 - 40 [facility] 170 DO Work Phone: Office Visit (Cardiology)on 07-19-2022 Follow-up visit Diagnoses/Problems Assessed PVC's (premature ventricular contractions) (427.69) (I49.3) Palpitations (785.1) (R00.2) Atypical chest pain (786.59) (R07.89) Orders Atypical chest pain Lipid Panel; Status:Active; Requested for:19Jul2022; PVC's (premature ventricular contractions) IO EKG Electrocardiogram- 12 Lead; Status:Complete; Done: 19Jul2022 11:37AM Chief Complaint palpitations History of Present [id number] female with a medical history of IBS [...] godwin colo (more content not included)... Normal [facility] Tobacco Screening.on Fall risk assessment a) No falls within the last year [facility] Work Phone: Tobacco use status [facility] b) No [facility] Work Phone: IO HCG, Urine Test on 06-25-2022 HCG ( test) Ql (U) Negative Normal [facility] Work Phone: LMPon 06-14-2022 Last menstrual period start date DEPO [employer] Work Phone: Tobacco use status [facility] b) No [employer] Work Phone: CBC AND DIFFERENTIALon 05-29 DIFFERENTIAL SEE MANUAL DIFF Normal [facility] Comment on above: Performed By: #### C BCDF #### [address] [address] Erythrocyte distribution width (RBC) [Ratio] 13.4 % Normal 11.5 - 14.5 [facility] Comment on above: Performed By: #### C BCDF #### [address] [address] Hematocrit (Bld) [Volume fraction] 42.9 % Normal 36.0 - 46.0 [facility] Comment on above: Performed By: #### C BCDF #### [address] [address] Hemoglobin (Bld) [Mass/Vol] 13.8 g/dL Normal 12.0 - 16.0 [facility] Comment on above: Performed By: #### C BCDF #### [address] [address] MCHC (RBC) [Mass/Vol] 32.2 g/dL Normal 32.0 - 36.0 [facility] Comment on above: Performed By: #### C BCDF #### [address] [address] MCV (RBC) [Entitic vol] 92 fL Normal 80 - 100 [facility] Comment on above: Performed By: #### C BCDF #### [address] [address] Platelets (Bld) [#/Vol] 350 10*3/uL Normal 150 - 450 [facility] Comment on above: Performed By: #### C BCDF #### [address] [address] RBC 4.68 x10E12/L Normal 4.00 - 5.20 [facility] Comment on above: Performed By: #### C BCDF #### [place] [id number] WBC (Bld) [#/Vol] 14.1 10*3/uL High 4.4 - 11.3 [facility] Comment on above: Performed By: #### C BCDF #### [place] [id number] COMPREHENSIVE PANELon 05-29- 2021 Albumin [Mass/Vol] 4.6 g/dL Normal 3.4 - 5.0 [facility] Comment on above: Performed By: #### C MP #### [address] [address] ALP [Catalytic activity/Vol] 69 U/L Normal 33 - 110 [facility] Comment on above: Performed By: #### C MP #### [address] [address] ALT [Catalytic activity/Vol] 17 U/L Normal 7 - 45 [facility] Comment on above: Result Comment: Tori ents treated with Sulfasalazine may generate falsely decreased results for ALT. Performed By: #### C MP #### [address] [address] Anion gap [Moles/Vol] 13 mmol/L Normal 10 - 20 [facility] Comment on above: Performed By: #### C MP #### [address] [address] AST [Catalytic activity/Vol] 16 U/L Normal 9 - 39 [facility] Comment on above: Performed By: #### C MP #### [address] [address] Bilirubin [Mass/Vol] 0.8 mg/dL Normal 0.0 - 1.2 [facility] Comment on above: Performed By: #### C MP #### [address] [address] Calcium [Mass/Vol] 9.2 mg/dL Normal 8.6 - 10.3 [facility] Comment on above: Performed By: #### C MP #### [address] [address] Chloride [Moles/Vol] 106 mmol/L Normal 98 - 107 [facility] Comment on above: Performed By: #### C MP #### [address] [address] Creatinine [Mass/Vol] 0.89 mg/dL Normal 0.50 - 1.05 [facility] Comment on above: Performed By: #### C MP #### [address] [address] eGFR FEMALE >90 Normal >90 [facility] Comment on above: Result Comment: CALC ULATIONS OF ESTIMATED GFR ARE PERFORMED USING THE 2020 CKD-EPI STUDY REFIT EQUATION WITHOUT THE RACE VARIABLE FOR THE IDMS-TRACEABLE CREATININE METHODS. https://jasn.asnjournals.org/content//ASN.8113111 988 Performed By: #### C MP #### [address] [address] Glucose [Mass/Vol] 92 mg/dL Normal 74 - 99 [facility] Comment on above: Performed By: #### C MP #### [address] [address] HCO3 (Bld) [Moles/Vol] 20 mmol/L Low 21 - 32 [facility] Comment on above: Performed By: #### C MP #### [address] [address] Potassium [Moles/Vol] 3.4 mmol/L Low 3.5 - 5.3 [facility] Comment on above: Performed By: #### C MP #### [address] [address] Protein [Mass/Vol] 8.1 g/dL Normal 6.4 - 8.2 [facility] Comment on above: Performed By: #### C MP #### [address] [address] Sodium [Moles/Vol] 136 mmol/L Normal 136 - 145 [facility] Comment on above: Performed By: #### C MP #### [place] [address] [place] [address] Urea nitrogen [Mass/Vol] 16 mg/dL Normal 6 - 23 [facility] Comment on above: Performed By: #### C MP #### [address] [address] [address] HEAD WO CONTRASTon 2021 CT HEAD WO CONTRAST Patient Name: JENNIFER HENLEY STUDY: CT HEAD WO CONTRAST; 05/29/2022 5:12 pm INDICATION: altered loc . COMPARISON: None. ACCESSION NUMBER(S): [id number] ORDERING CLINICIAN: CHUCK THORPE TECHNIQUE: Noncontrast axial [...] Electronically signed by: CHIVO DEAL MD Normal [facility] CT Head without Contraston 0 05-29-2022 CT Head limited WO contrast Normal [facility] [address] [place] Work Phone: Complete Blood Count + Diffe rentialon 05-29-2022 Erythrocyte distribution width (RBC) [Ratio] 13.4 % See Below [facility] [address] [place] Work Phone: Comment on above: Reference Range: 11. 5 - 14.5 Hematocrit (Bld) [Volume fraction] 42.9 % See Below [facility] [address] [place] Work Phone: Comment on above: Reference Range: 36. 0 - 46.0 Hemoglobin (Bld) [Mass/Vol] 13.8 g/dL See Below [facility] [place] [address] [place] Work Phone: Comment on above: Reference Range: 12. 0 - 16.0 MCHC (RBC) [Mass/Vol] 32.2 g/dL See Below [facility] [place] [address] [place] Work Phone: [phone] Comment on above: Reference Range: 32. 0 - 36.0 MCV (RBC) [Entitic vol] 92 fL 80 - 100 [facility] [place] [address] [place] Work Phone: [phone] Platelets (Bld) [#/Vol] 350 10*3/uL 150 - 450 [facility] [place] [address] [place] Work Phone: [phone] RBC (Bld) [#/Vol] 4.68 {x10E12/L} See Below [facility] [place] [address] [place] Work Phone: Comment on above: Reference Range: 4.0 0 - 5.20 WBC (Bld) [#/Vol] 14.1 10*3/uL above high threshold 4.4 - 11.3 [facility] [place] [address] [place] Work Phone: Complete Blood Count + Differential SEE MANUAL DIFF [facility] [place] [address] [place] Work Phone: D-DIMER, VTE EXCLUSIONon D-DIMER, VTE EXCLUSION <215 Normal < or = 500 [facility] Comment on above: Result Comment: The VTE [...] exclusion.) Performed By: #### D IMEX #### [address] [address] HCG,URINEon 05-29-2022 Beta HCG ( test) Ql (U) Negative Normal Negative [facility] Comment on above: Performed By: #### C BCDF #### [address] [address] Laboratory - Chemistry and C hemistry - challengeon 05-29-2022 Albumin BCP dye [Mass/Vol] 4.6 g/dL 3.4 - 5.0 [facility] [address] [place] Work Phone: ALP [Catalytic activity/Vol] 69 U/L 33 - 110 [facility] [address] [place] Work Phone: ALT With P-5'-P [Catalytic activity/Vol] 17 U/L 7 - 45 [facility] [address] [place] Work Phone: Comment on above: Patients treated wit h Sulfasalazine may generate falsely decreased results for ALT. Anion gap [Moles/Vol] 13 mmol/L 10 - 20 [facility] [address] [place] Work Phone: AST With P-5'-P [Catalytic activity/Vol] 16 U/L 9 - 39 [facility] [address] [place] Work Phone: Bilirubin [Mass/Vol] 0.8 mg/dL 0.0 - 1.2 [facility] [address] [place] Work Phone: Calcium [Mass/Vol] 9.2 mg/dL 8.6 - 10.3 [facility] [place] [address] [place] Work Phone: Chloride [Moles/Vol] 106 mmol/L 98 - 107 [facility] [address] [place] Work Phone: CO2 [Moles/Vol] 20 mmol/L below low threshold 21 - 32 [facility] [address] [place] Work Phone: Creatinine [Mass/Vol] 0.89 mg/dL See Below [facility] [address] [place] Work Phone: Comment on above: Reference Range: 0.5 0 - 1.05 Glucose [Mass/Vol] 92 mg/dL 74 - 99 [facility] [address] [place] Work Phone: Potassium [Moles/Vol] 3.4 mmol/L below low threshold 3.5 - 5.3 [facility] [address] [place] Work Phone: Protein [Mass/Vol] 8.1 g/dL 6.4 - 8.2 [facility] [address] [place] Work Phone: Sodium [Moles/Vol] 136 mmol/L 136 - 145 [facility] [address] [place] Work Phone: Urea nitrogen [Mass/Vol] 16 mg/dL 6 - 23 [facility] [address] [place] Work Phone: Laboratory - Hematology and Cell countson 05-29-2022 Band form neutrophils/100 WBC (Bld) 2.0 % 0.0 - 5.0 [facility] [address] [place] Work Phone: Basophils/100 WBC (Bld) 0.0 % 0.0 - 2.0 [facility] [address] [place] Work Phone: Lymphocytes/100 WBC (Bld) 8.0 % See Below [facility] [address] [place] Work Phone: Comment on above: Reference Range: 13. 0 - 44.0 Monocytes/100 WBC (Bld) 4.0 % 2.0 - 10.0 [facility] [address] [place] Work Phone: MANUAL DIFFERENTIALon 2021 ANC 12.27 x10E9/L High 1.20 - 7.70 [facility] Comment on above: Performed By: #### C BCDF #### [address] [address] BAND NEUTROPHIL 0.28 x10E9/L Normal 0.00 - 0.70 [facility] Comment on above: Performed By: #### C BCDF #### [address] [address] BASOPHIL 0.00 x10E9/L Normal 0.00 - 0.10 [facility] Comment on above: Performed By: #### C BCDF #### [address] [address] EOSINOPHIL 0.14 x10E9/L Normal 0.00 - 0.70 [facility] Comment on above: Performed By: #### C BCDF #### [address] [address] LYMPHOCYTE 1.13 x10E9/L Low 1.20 - 4.80 [facility] Comment on above: Performed By: #### C BCDF #### [address] [address] MONOCYTE 0.56 x10E9/L Normal 0.10 - 1.00 [facility] Comment on above: Performed By: #### C BCDF #### [address] [address] SEG NEUTROPHIL 11.99 x10E9/L High 1.20 - 7.00 [facility] Comment on above: Performed By: #### C BCDF #### [address] [address] % BAND NEUTROPHIL 2.0 % Normal 0.0 - 5.0 [facility] Comment on above: Performed By: #### C BCDF #### [address] [address] % BASOPHIL 0.0 % Normal 0.0 - 2.0 [facility] Comment on above: Performed By: #### C BCDF #### [address] [address] % EOSINOPHIL 1.0 % Normal 0.0 - 6.0 [facility] Comment on above: Performed By: #### C BCDF #### [address] [address] % LYMPHOCYTE 8.0 % Normal 13.0 - 44.0 [facility] Comment on above: Performed By: #### C BCDF #### [address] [address] % MONOCYTE 4.0 % Normal 2.0 - 10.0 [facility] Comment on above: Performed By: #### C BCDF #### [address] [address] % SEG NEUTROPHIL 85.0 % Normal 40.0 - 80.0 [facility] Comment on above: Result Comment: Perc ent differential counts (%) should be interpreted in the context of the absolute cell counts (cells/L). Performed By: #### C BCDF #### [address] [address] No Panel Informationon 05-29 <215 < or = 500 [facility] [address] [place] Work Phone: Comment on above: [...] DVT or PE exclusion.) >90 >90 [facility] [address] [place] Work Phone: Comment on above: CALCULATIONS OF EVELYN MATED GFR ARE PERFORMED USING THE 2020 CKD-EPI STUDY REFIT EQUATION WITHOUT THE RACE VARIABLE FOR THE IDMS-TRACEABLE CREATININE METHODS.https://jasn.asnjournals.org/content//ASN .2821371974 NORMAL [facility] edgar [facility] [address] [place] Work Phone: [phone] 0.00 {x10E9/L} See Below [facility] [address] [place] Work Phone: [phone] Comment on above: Reference Range: 0.0 0 - 0.10 0.14 {x10E9/L} See Below [facility] [address] [place] Work Phone: [phone] Comment on above: Reference Range: 0.0 0 - 0.70 0.56 {x10E9/L} See Below [facility] [address] [place] Work Phone: [phone] Comment on above: Reference Range: 0.1 0 - 1.00 1.13 {x10E9/L} below low threshold See Below [facility] [address] [place] Work Phone: [phone] Comment on above: Reference Range: 1.2 0 - 4.80 0.28 {x10E9/L} See Below [facility] [address] [place] Work Phone: [phone] Comment on above: Reference Range: 0.0 0 - 0.70 11.99 {x10E9/L} above high threshold See Below [facility] [address] [place] Work Phone: [phone] Comment on above: Reference Range: 1.2 0 - 7.00 12.27 {x10E9/L} above high threshold See Below [facility] [address] [place] Work Phone: Comment on above: Reference Range: 1.2 0 - 7.70 1.0 % 0.0 - 6.0 [facility] [address] [place] Work Phone: [phone] 85.0 % See Below [facility] [address] [place] Work Phone: Comment on above: Reference Range: 40. 0 - 80.0 Percent differential counts (%) should be interpreted in the context of the absolute cell counts (cells/L). Provider Note - ED v3on 08- Provider Note - ED v3 Provider Note: Chart Review: ED NOTES ED NOTES: Chief complaint: Lightheadedness History of chief complaint: Patient presents secondary to lightheadedness. The patient states that she was at [facility] and began experiencing lightheadedness with [...] ordered by PCP for fluctuating HR. Just [employer]ET [employer], while at [employer] around 1445 she started to feel jittery [...] Medical History Description:IBS Description:Migraines Past Surgical History Description:natashabryant otomy CRITICAL CARE RESULTS: Recent Lab Results: I have reviewed these laboratory results: Troponin I, High Sensitivity Trending View [id number] 17:30:00 29-May-2022 15:59:00 Troponin I, High Sensitivity<3 <3 D-Dimer, VTE Exclusion (more content not included)... Normal [facility] RED CELL MORPHOLOGYon 2021 RBC morphology finding Nom (Bld) NORMAL Normal [facility] Comment on above: Performed By: #### B #### [address] [address] TROPONIN I, HIGH SENSITIVITY on 05-29-2022 TROPONIN I, HIGH SENSITIVITY <3 Normal 0 - [facility] Comment on above: Result Comment: . Less [...] performed using a different testing methodology at [facility] than at other [facility]. Direct result comparisons should only be made within the same method. Performed By: #### T [facility] #### [address] [address] TROPONIN I, HIGH SENSITIVITY <3 Normal 0 - 13 [facility] Comment on above: Result Comment: . Less [...] performed using a different testing methodology at [facility] than at other [facility]. Direct result comparisons should only be made within the same method. Performed By: #### C [facility] #### [address] [place] [address] Tropinin I.cardiac panel High sensitivity method <3 0 - 13 [facility] [address] [place] Work Phone: Comment on above: [...] performed using a different testing methodology at [facility] than at other [facility]. Direct result comparisons should only be made within the same method. Tropinin I.cardiac panel High sensitivity method <3 0 - 13 [facility] [address] [place] Work Phone: Comment on above: [...] performed using a different testing methodology at [facility] than at other [facility]. Direct result comparisons should only be [...] ordered by PCP for fluctuating HR. Just [employer], [facility] [employer] around 1445 she started to feel jittery [...] support. Weight: 185.1 pounds. Calculated 84.0 kg. Tyrone Coma Scale: Best Eye Response: (E4) spontaneous Best Motor Response: (M6) obeys commands Best Verbal Response: (V5) oriented Rosario Score: 15 Cough lasting greater than 3 weeks: no Allergies: yes Mask applied: yes Last menstrual period: unknown PERIANESTHESIA NURSE History: control Patient has homicidal thoughts: no [...] 29-May-2022 15:37 by Bre Redmond (ASHLEY) Normal [facility] URINALYSISon 05-29-2022 Appearance (U) CLEAR Normal CLEAR [facility] Comment on above: Performed By: #### U A #### [address] [address] Bilirubin Ql (U) Negative Normal NEGATIVE [facility] Comment on above: Performed By: #### U A #### [address] [address] Color (U) YELLOW Normal STRAW,YELLOW [facility] Comment on above: Performed By: #### U A #### [address] [address] Glucose Ql (U) Negative Normal NEGATIVE [facility] Comment on above: Performed By: #### U A #### [address] [address] Hemoglobin Ql (U) Negative Normal NEGATIVE [facility] Comment on above: Performed By: #### U A #### [place] [address] Ketones Ql (U) Negative Normal NEGATIVE [facility] Comment on above: Performed By: #### U A #### [place] [address] Leukocyte esterase Test strip Ql (U) Negative Normal NEGATIVE [facility] Comment on above: Performed By: #### U A #### [place] [address] Nitrite Ql (U) Negative Normal NEGATIVE [facility] Comment on above: Performed By: #### U A #### [place] [address] pH (U) 6.0 [pH] Normal 5.0 - 8.0 [facility] Comment on above: Performed By: #### U A #### [place] [address] Protein Ql (U) Negative Normal NEGATIVE [facility] Comment on above: Performed By: #### U A #### [place] [address] Specific gravity (U) [Rel density] 1.025 Normal 1.005 - 1.035 [facility] Comment on above: Performed By: #### U A #### [id number] Urobilinogen (U) [Mass/Vol] mg/dL Normal 0.0 - 1.9 [facility] Comment on above: Performed By: #### U A #### [id number] Urinalysison 05-29-2022 Color (U) YELLOW See Below [facility] hern[facility]dez [address] [address] [place] Work Phone: [phone] Comment on above: Reference Range: STR AW,YELLOW Glucose Ql (U) Negative NEGATIVE [facility] edgar [address] [address] [place] Work Phone: [phone] Ketones Ql (U) Negative NEGATIVE [facility] [address] [place] [address] [place] Work Phone: Leukocyte esterase Test strip Ql (U) Negative NEGATIVE [facility] [address] [address] [place] Work Phone: [phone] pH (U) 6.0 [pH] 5.0 - 8.0 [facility] [address] [place] Work Phone: [phone] Protein (U) [Mass/Vol] Negative NEGATIVE [facility] [address] [place] [address] [place] Work Phone: [phone] RBC (U) [#/Vol] Negative NEGATIVE [facility] [address] [address] [place] Work Phone: [phone] Specific gravity (U) [Rel density] 1.025 1 See Below [facility] [address] [address] [place] Work Phone: [phone] Comment on above: Reference Range: 1.0 05 - 1.035 Urinalysis Negative NEGATIVE [facility] [place] [address] [address] [place] Work Phone: [phone] Urinalysis <2.0 0.0 - 1.9 [facility] [address] [address] [place] Work Phone: [phone] Urinalysis CLEAR CLEAR [facility] [address] [address] [place] Work Phone: [phone] Urine Teston 05-29 HCG ( test) Ql (U) Negative Negative [facility] [place] [address] [address] [place] Work Phone: [phone] Blood Pressure Cuff Sizeon 0 05-17-2022 Adult depression screening assessment No [facility] Work Phone: Fall risk assessment a) No falls within the last year [facility] Work Phone: Tobacco use status [facility] b) No [facility] Work Phone: [phone] Blood Pressure Cuff Size Adult [facility] Work Phone: [phone] Complete Blood Count + Diffe marcial 05-17-2022 Basophils/100 WBC (Bld) 1.3 % 0.0 - 2.0 [facility] Work Phone: [phone] Erythrocyte distribution width (RBC) [Ratio] 13.4 % See Below [facility] Work Phone: [phone] Comment on above: Reference Range: 11. 5 - 14.5 Hematocrit (Bld) [Volume fraction] 39.9 % See Below [facility] Work Phone: [phone] Comment on above: Reference Range: 36. 0 - 46.0 Hemoglobin (Bld) [Mass/Vol] 13.1 g/dL See Below [facility] Work Phone: [phone] Comment on above: Reference Range: 12. 0 - 16.0 Lymphocytes/100 WBC (Bld) 32.2 % See Below [facility] Work Phone: [phone] Comment on above: Reference Range: 13. 0 - 44.0 MCHC (RBC) [Mass/Vol] 32.7 g/dL See Below [facility] Work Phone: [phone] Comment on above: Reference Range: 32. 0 - 36.0 MCV (RBC) [Entitic vol] 92 fL 80 - 100 [facility] Work Phone: [phone] Monocytes/100 WBC (Bld) 8.0 % 2.0 - 10.0 [facility] Work Phone: [phone] Neutrophils/100 WBC (Bld) 55.2 % See Below [facility] Work Phone: [phone] Comment on above: Reference Range: 40. 0 - 80.0 Platelets (Bld) [#/Vol] 334 10*3/uL 150 - 450 [facility] Work Phone: [phone] RBC (Bld) [#/Vol] 4.34 {x10E12/L} See Below [facility] Work Phone: [phone] Comment on above: Reference Range: 4.0 0 - 5.20 WBC (Bld) [#/Vol] 7.9 10*3/uL 4.4 - 11.3 [facility] Work Phone: [phone] Complete Blood Count + Differential 0.10 {x10E9/L} See Below [facility] Work Phone: [phone] Comment on above: Reference Range: 0.0 0 - 0.10 Complete Blood Count + Differential 0.30 {x10E9/L} See Below [facility] Work Phone: [phone] Comment on above: Reference Range: 0.0 0 - 0.70 Complete Blood Count + Differential 0.60 {x10E9/L} See Below [facility] Work Phone: Comment on above: Reference Range: 0.1 0 - 1.00 Complete Blood Count + Differential 2.60 {x10E9/L} See Below [facility] Work Phone: Comment on above: Reference Range: 1.2 0 - 4.80 Complete Blood Count + Differential 4.40 {x10E9/L} See Below [facility] Work Phone: Comment on above: Reference Range: 1.2 0 - 7.70 Percent differential counts (%) should be interpreted in the context of the absolute cell counts (cells/L). Complete Blood Count + Differential 3.3 % 0.0 - 6.0 [facility] Work Phone: Complete Blood Count + Differential 0.2 {/100_WBC} [facility] Work Phone: Laboratory - Chemistry and C hemistry - challengeon 05-17-2022 Albumin BCP dye [Mass/Vol] 4.6 g/dL 3.4 - 5.0 [facility] Work Phone: [phone] ALP [Catalytic activity/Vol] 58 U/L 33 - 110 [facility] Work Phone: [phone] ALT With P-5'-P [Catalytic activity/Vol] 18 U/L 7 - 45 [facility] Work Phone: [phone] Comment on above: Patients treated wit h Sulfasalazine may generate falsely decreased results for ALT. Anion gap [Moles/Vol] 11 mmol/L 10 - 20 [facility] Work Phone: [phone] AST With P-5'-P [Catalytic activity/Vol] 15 U/L 9 - 39 [facility] Work Phone: [phone] Bilirubin [Mass/Vol] 0.5 mg/dL 0.0 - 1.2 [facility] Work Phone: [phone] Calcium [Mass/Vol] 9.5 mg/dL 8.6 - 10.3 [facility] Work Phone: [phone] Chloride [Moles/Vol] 109 mmol/L above high threshold 98 - 107 [facility] Work Phone: [phone] CO2 [Moles/Vol] 24 mmol/L 21 - 32 [facility] Work Phone: [phone] Creatinine [Mass/Vol] 0.95 mg/dL See Below [facility] Work Phone: [phone] Comment on above: Reference Range: 0.5 0 - 1.05 Glucose [Mass/Vol] 84 mg/dL 74 - 99 [facility] Work Phone: [phone] Potassium [Moles/Vol] 3.9 mmol/L 3.5 - 5.3 [facility] Work Phone: [phone] Protein [Mass/Vol] 7.8 g/dL 6.4 - 8.2 [facility] Work Phone: Sodium [Moles/Vol] 140 mmol/L 136 - 145 [facility] Work Phone: [phone] TSH Qn 0.86 m[IU]/L See Below [facility] Work Phone: [phone] Comment on above: Reference Range: 0.4 4 - 3.98 TSH testing is performed using different testing methodology at [facility] than at other [facility] [facility]. Direct result comparisons should only be made within the same method. Urea nitrogen [Mass/Vol] 19 mg/dL 6 - 23 [facility] Work Phone: No Panel Informationon 05-17 84 {mL/min/1.73m2} >90 [facility] Work Phone: [phone] Comment on above: CALCULATIONS OF EVELYN MATED GFR ARE PERFORMED USING THE 2020 CKD-EPI STUDY REFIT EQUATION WITHOUT THE RACE VARIABLE FOR THE IDMS-TRACEABLE CREATININE METHODS.https://jasn.asnjournals.org/content/early//ASN .1791763519 TOBACCO SCREEN [facility] ONLYon 05-17-2022 Cotinine Screen Ql (U) Negative [facility] Work Phone: Comment on above: Cotinine, a metaboli te of nicotine, is measured to screen for nicotine exposure. The cut-off is set at 300ng/mL to detect active exposure (smoking).This test was developed and its performance characteristics were determined by the [facility]. Respirationon 01-17-2022 Heart Rate Regular [facility] [address] DO Work Phone: Respiration Normal [facility] [address] DO Work Phone: PHQ-2 VITALSon 12-20-2021 Adult depression screening assessment Yes [facility] Work Phone: Adult depression screening assessment No [facility] Work Phone: Fall risk assessment a) No falls within the last year [facility] Work Phone: Tobacco use status [facility] b) No [facility] Work Phone: PHQ-2 VITALS Adult [facility] Work Phone: MRI Brain without Contraston 09-19-2021 MR Brain WO contrast Normal [facility] Work Phone: Blood Pressure Cuff Sizeon 1 10-29-2020 Fall risk assessment a) No falls within the last year [facility] Work Phone: Tobacco use status [facility] b) No [facility] Work Phone: Blood Pressure Cuff Size Adult [facility] Work Phone: Blood Pressure Cuff Sizeon 0 05-25-2021 Fall risk assessment a) No falls within the last year [facility] Work Phone: Tobacco use status [facility] b) No [facility] Work Phone: Blood Pressure Cuff Size Adult [facility] Work Phone: Complete Blood Count + Diffe rentialon 05-25-2021 Basophils/100 WBC (Bld) 0.8 % 0.0 - 2.0 [facility] Work Phone: Erythrocyte distribution width (RBC) [Ratio] 14.0 % See Below [facility] Work Phone: Comment on above: Reference Range: 11. 5 - 14.5 Hematocrit (Bld) [Volume fraction] 36.9 % See Below [facility] Work Phone: Comment on above: Reference Range: 36. 0 - 46.0 Hemoglobin (Bld) [Mass/Vol] 11.9 g/dL below low threshold See Below [facility] Work Phone: Comment on above: Reference Range: 12. 0 - 16.0 Lymphocytes/100 WBC (Bld) 22.4 % See Below [facility] Work Phone: Comment on above: Reference Range: 13. 0 - 44.0 MCHC (RBC) [Mass/Vol] 32.3 g/dL See Below [facility] Work Phone: [phone] Comment on above: Reference Range: 32. 0 - 36.0 MCV (RBC) [Entitic vol] 90 fL 80 - 100 [facility] Work Phone: [phone] Monocytes/100 WBC (Bld) 7.8 % 2.0 - 10.0 [facility] Work Phone: [phone] Neutrophils/100 WBC (Bld) 68.0 % See Below [facility] Work Phone: [phone] Comment on above: Reference Range: 40. 0 - 80.0 Platelets (Bld) [#/Vol] 335 10*3/uL 150 - 450 [facility] Work Phone: [phone] RBC (Bld) [#/Vol] 4.10 {x10E12/L} See Below [facility] Work Phone: [phone] Comment on above: Reference Range: 4.0 0 - 5.20 WBC (Bld) [#/Vol] 11.2 10*3/uL 4.4 - 11.3 [facility] Work Phone: [phone] Complete Blood Count + Differential 0.10 {x10E9/L} See Below [facility] Work Phone: [phone] Comment on above: Reference Range: 0.0 0 - 0.10 Reference Range: 0.0 0 - 0.70 Complete Blood Count + Differential 0.90 {x10E9/L} See Below [facility] Work Phone: [phone] Comment on above: Reference Range: 0.1 0 - 1.00 Complete Blood Count + Differential 2.50 {x10E9/L} See Below [facility] Work Phone: [phone] Comment on above: Reference Range: 1.2 0 - 4.80 Complete Blood Count + Differential 7.60 {x10E9/L} See Below [facility] Work Phone: [phone] Comment on above: Reference Range: 1.2 0 - 7.70 Percent differential counts (%) should be interpreted in the context of the absolute cell counts (cells/L). Complete Blood Count + Differential 1.0 % 0.0 - 6.0 [facility] Work Phone: [phone] Complete Blood Count + Differential 0.1 {/100_WBC} [facility] Work Phone: [phone] Laboratory - Chemistry and C hemistry - challengeon 05-25-2021 Albumin BCP dye [Mass/Vol] 4.4 g/dL 3.4 - 5.0 [facility] Work Phone: [phone] ALP [Catalytic activity/Vol] 60 U/L 33 - 110 [facility] Work Phone: [phone] ALT With P-5'-P [Catalytic activity/Vol] 23 U/L 7 - 45 [facility] Work Phone: [phone] Comment on above: Patients treated wit h Sulfasalazine may generate falsely decreased results for ALT. Anion gap [Moles/Vol] 13 mmol/L 10 - 20 [facility] Work Phone: [phone] AST With P-5'-P [Catalytic activity/Vol] 22 U/L 9 - 39 [facility] Work Phone: [phone] Bilirubin [Mass/Vol] 0.7 mg/dL 0.0 - 1.2 [facility] Work Phone: [phone] Calcium [Mass/Vol] 9.6 mg/dL 8.6 - 10.3 [facility] Work Phone: [phone] Chloride [Moles/Vol] 107 mmol/L 98 - 107 [facility] Work Phone: [phone] CO2 [Moles/Vol] 21 mmol/L 21 - 32 [facility] Work Phone: Creatinine [Mass/Vol] 0.95 mg/dL See Below [facility] Work Phone: [phone] Comment on above: Reference Range: 0.5 0 - 1.05 Glucose [Mass/Vol] 85 mg/dL 74 - 99 [facility] Work Phone: [phone] Potassium [Moles/Vol] 3.6 mmol/L 3.5 - 5.3 [facility] Work Phone: [phone] Protein [Mass/Vol] 7.8 g/dL 6.4 - 8.2 [facility] Work Phone: [phone] Sodium [Moles/Vol] 137 mmol/L 136 - 145 [facility] Work Phone: [phone] TSH Qn 1.34 m[IU]/L See Below [facility] Work Phone: [phone] Comment on above: Reference Range: 0.4 4 - 3.98 TSH testing is performed using different testing methodology at [facility] than at other [place] [facility]. Direct result comparisons should only be made within the same method. Urea nitrogen [Mass/Vol] 18 mg/dL 6 - 23 [facility] Work Phone: Laboratory - Coagulationon 0 05-25-2021 INR Coag (PPP) [Relative time] 1.1 {INR} 0.9 - 1.1 [facility] Work Phone: PT Coag (PPP) [Time] 13.2 s See Below [facility] Work Phone: Comment on above: Reference Range: 10. 1 - 13.3 No Panel Informationon 05-25 >60 >60 [facility] Work Phone: Comment on above: CALCULATIONS OF EVELYN MATED GFR ARE PERFORMED USING THE MDRD STUDY EQUATION FOR THE IDMS-TRACEABLE CREATININE METHODS. CLIN CHEM 2007;53:766-72 Otheron 11-11-2020 XR Chest 2 views Interpreted by: ZHEN BROWNJU11/12/20 07:16MRN: [id number] Name: JENNIFER DICK STUDY:TH CHEST 2 VIEW [...] signed by: VILMA RODRIGUEZ 11/12/20 07:16 Normal [facility] [place] Work Phone: Antibody to Antiscleroderma- 70on 10-29-2020 SCL-70 extractable nuclear Ab IA Ql (S) <0.2 [facility] [place] Work Phone: Comment on above: REF VALUES < 1.0 = N EGATIVE >=1.0 = POSITIVE Otheron 10-29-2020 Nuclear Ab Hep2 substrate Ql (S) Negative NEGATIVE [facility] [place] Work Phone: Thyroidon 10-29-2020 TSH Qn 0.84 {mIU/L} See Below [facility] edgar [place] Work Phone: Comment on above: Reference Range: 0.4 4 - 3.98 TSH testing is performed using different testing methodology at [facility] than at other [facility] [facility]. Direct result comparisons should only be made within the same method. COVID-19, MOLECULARon 2019 SARS-COV-2 RNA (INGE) Not Detected Normal Not Detected [facility] Comment on above: Result Comment: This [...] at the following links: For Healthcare Providers: https://www.fda.gov/media/161664/download For Patients: https://www.fda.gov/media/926857/download Performed By: #### L [id number] #### [facility] [address] [place] [id number] Fernando Padron M.D. [id number] COVID-19, MOLECULARon 2019 SARS-COV-2 RNA (INGE) Not Detected Normal Not Detected [facility] Comment on above: Result Comment: This [...] at the following links: For Healthcare Providers: https://www.fda.gov/media/781132/download For Patients: https://www.fda.gov/media/768776/download Performed By: #### L [id number] #### [facility] [address] [place] [id number] Fernando Padron M.D. [id number] XR KNEE LEFT 4+ VIEWS (SPECI FY [...] SatMay 06, 2020 10:59:08 AM EDT Normal [facility] Comment on above: Order Comment: Injur y/Trauma or Illness?:Illness/Other How long have you had these symptoms (acute/chronic)?:Chronic Reason for exam?:left knee pain and popping no injury History of cancer?:U Surgeries, chemotherapy, or radiation?:U Type of Exam?:Initial Additional signs and symptoms?:hx of fulkeerson osteotomy and lateral release October 2019 POC , Urineon 10-22 HCG ( test) Ql (U) Negative Negative [facility] Internal Control [facility] Interpretation and review of laboratory results Normal [facility] Specific gravity (U) [Rel density] [facility] XR OR Knee Left 1-2 Viewson 10-22-2019 Intraoperative localization for screw-fixated osteotomy in the proximal tibia. PRL/jw Workstation ID: [id number] [facility] EXAMINATION: XR OR K NEE LEFT [...] knee COMPARISON: 08/27/2019. TECHNIQUE: Fluoro dose in Miryam,anais mGy: 1.9 2 images. FINDINGS: Intraoperative images demonstrating cannulated screw placement in proximal tibia. [facility] Interface, Rad In Fu ji Speechq [...] for screw-fixated osteotomy in the proximal tibia. PRL/jw Workstation ID: [id number] [facility] CBCon 09-23-2019 Erythrocyte distribution width (RBC) [Ratio] 12.6 % Normal 11.5 - 14.5 [facility] Comment on above: Performed By: #### C BC #### [address] [address] Hematocrit (Bld) [Volume fraction] 36.8 % Normal 36.0 - 46.0 [facility] Comment on above: Performed By: #### C BC #### [address] [address] Hemoglobin (Bld) [Mass/Vol] 11.5 g/dL Low 12.0 - 16.0 [facility] Comment on above: Performed By: #### C BC #### [address] [address] MCHC (RBC) [Mass/Vol] 31.3 g/dL Low 32.0 - 36.0 [facility] Comment on above: Performed By: #### C BC #### [address] [address] MCV (RBC) [Entitic vol] 92 fL Normal 80 - 100 [facility] Comment on above: Performed By: #### C BC #### [address] [address] Nucleated RBC/100 WBC (Bld) [Ratio] 0.0 /100 WBC Normal 0.0 - 0.0 [facility] Comment on above: Performed By: #### C BC #### [address] [address] Platelets (Bld) [#/Vol] 316 10*3/uL Normal 150 - 450 [facility] Comment on above: Performed By: #### C BC #### [address] [address] RBC (Bld) [#/Vol] 4.02 x10E12/L Normal 4.00 - 5.20 [facility] Comment on above: Performed By: #### C BC #### [address] [address] WBC (Bld) [#/Vol] 8.5 10*3/uL Normal 4.4 - 11.3 [facility] Comment on above: Performed By: #### C BC #### [address] [address] COMPREHENSIVE PANELon 2018 Albumin [Mass/Vol] 4.4 g/dL Normal 3.4 - 5.0 [facility] Comment on above: Performed By: #### C MP #### [address] [address] ALP [Catalytic activity/Vol] 53 U/L Normal 33 - 110 [facility] Comment on above: Performed By: #### C MP #### [address] [address] ALT [Catalytic activity/Vol] 17 U/L Normal 7 - 45 [facility] Comment on above: Result Comment: Tori ents treated with Sulfasalazine may generate falsely decreased results for ALT. Performed By: #### C MP #### [address] [address] Anion gap [Moles/Vol] 12 mmol/L Normal 10 - 20 [facility] Comment on above: Performed By: #### C MP #### [address] [address] AST [Catalytic activity/Vol] 17 U/L Normal 9 - 39 [facility] Comment on above: Performed By: #### C MP #### [address] [address] Bilirubin [Mass/Vol] 0.3 mg/dL Normal 0.0 - 1.2 [facility] Comment on above: Performed By: #### C MP #### [address] [address] Calcium [Mass/Vol] 9.5 mg/dL Normal 8.6 - 10.3 [facility] Comment on above: Performed By: #### C MP #### [address] [address] Chloride [Moles/Vol] 108 mmol/L High 98 - 107 [facility] Comment on above: Performed By: #### C MP #### [address] [address] Creatinine [Mass/Vol] 0.94 mg/dL Normal 0.50 - 1.05 [facility] Comment on above: Performed By: #### C MP #### [address] [address] GFR- AM. >60 Normal >60 [facility] Comment on above: Result Comment: CALC ULATIONS OF ESTIMATED GFR ARE PERFORMED USING THE MDRD STUDY EQUATION FOR THE IDMS-TRACEABLE CREATININE METHODS. CLIN CHEM 2007;53:766-72 Performed By: #### C MP #### [address] [address] GFR-NON AM. >60 Normal >60 [facility] Comment on above: Performed By: #### C MP #### [address] [address] Glucose [Mass/Vol] 106 mg/dL High 74 - 99 [facility] Comment on above: Performed By: #### C MP #### [address] [address] HCO3 (Bld) [Moles/Vol] 25 mmol/L Normal 21 - 32 [facility] Comment on above: Performed By: #### C MP #### [address] [address] Potassium [Moles/Vol] 3.9 mmol/L Normal 3.5 - 5.3 [facility] Comment on above: Performed By: #### C MP #### [address] [address] Protein [Mass/Vol] 7.8 g/dL Normal 6.4 - 8.2 [facility] Comment on above: Performed By: #### C MP #### [address] [address] Sodium [Moles/Vol] 141 mmol/L Normal 136 - 145 [facility] Comment on above: Performed By: #### C MP #### [address] [address] Urea nitrogen [Mass/Vol] 22 mg/dL Normal 6 - 23 [facility] Comment on above: Performed By: #### C MP #### [address] [address] TSH WITH REFLEX TO FREE T4 I F ABNORMALon 09-23-2019 TSH Qn 3.17 m[IU]/L Normal 0.44 - 3.98 [facility] Comment on above: Result Comment: TSH testing is performed using different testing methodology at [facility] than at [facility]. Direct result comparisons should only be made within the same method. Performed By: #### T HYDS #### [address] [address] TTG AB,IGAon 09-23-2019 TTG AB,IGA <1 Normal 0 - 14 [facility] Comment on above: Result Comment: Rita ac disease is unlikely. False negative Tissue Transglutaminase Antibody, IgA results can occur in approximately 10% of patients with celiac disease, patients already adhering to a gluten-free diet, or patients with IgA deficiency. Performed By: #### T TGA #### [facility] [address] [place] [address] Lab Miscellaneouson 06-30-20 19 Status See Ref Lab Report Normal [facility] Comment on above: Performed By: #### 2 [id number] #### [place] [employer] [employer] [address] [place] [address] Status See Ref Lab Report Normal [facility] Comment on above: Performed By: #### 2 026343 #### [employer] [address] [place] [address] Status See Ref Lab Report Normal [facility] Comment on above: Performed By: #### 2 647221 #### [employer] [address] [place] [address] Status See Ref Lab Report Normal [facility] Comment on above: Performed By: #### 2 174369 #### [employer] [address] [place] [address] Status See Ref Lab Report Normal [facility] Comment on above: Performed By: #### 2 667916 #### [employer] [address] [place] [address] Antinuclear Antibody Screeno n 06-29-2019 AMIE Direct Positive Abnormal Negative [facility] Comment on above: Result Comment: Perf ormed At: CB [facility] [address] [id number] Gregorio Walker PhD Ph:[phone] Performed By: #### 2 [id number] #### [employer] [address] [place] [address] NM Hepatobiliary Duct System Imaging w/EFon 06-29-2019 NM Hepatobiliary Duct System Imaging w/EF Exam Date/Time: 06/29/2019 13:36 EDT Reason for Exam: ABD PAIN GODWIN COLORED FECES;Abdominal pain Report STUDY: NM Hepatobiliary Duct System Imaging w/EF; 06/29/2019 1:36 pm INDICATION: Abdominal pain. Right upper quadrant abdominal pain COMPARISON: None. ACCESSION NUMBER(S): [id number] ORDERING CLINICIAN: Evelyn Busch TECHNIQUE: DIVISION OF [...] or biliary dyskinesia. Images were interpreted at [facility]. FINAL REPORT Dictated: 06/29/2019 1:41 pm Shantal Salmeron MD Signed (Electronic Signature): 06/29/2019 1:41 pm Signed by: Shantal Salmeron MD Technologist: MARÍA [facility] RF Quanton 06-27-2019 RA Latex Turbid <10.0 Normal 0.0-13.9 [facility] Comment on above: Result Comment: Perf ormed At: [facility] [address] [id number] Gregorio Walker PhD Ph:[phone] Performed By: #### 2 [id number] #### [employer] [address] [place] [address] Lab Miscellaneouson 06-25-20 Test Name anti sci 70 [facility] Comment on above: Performed By: #### 2 773798 #### [employer] [address] [place] [address] Test Name misc [facility] Comment on above: Performed By: #### 2 237234 #### [employer] [address] [place] [address] Test Name allergy profile [facility] Comment on above: Performed By: #### 2 475943 #### [employer] [address] [place] [address] Test Name sandra [facility] Comment on above: Performed By: #### 2 421727 #### [employer] [address] [place] [address] Test Name anti-ccp [facility] Comment on above: Performed By: #### 2 944999 #### [employer] [address] [place] [address] US Abdomen, Limitedon 2018 US Abdomen, Limited Exam Date/Time: 06/24/2019 08:10 EDT Reason for Exam: ABD PAIN RUQ ATTN: RUQ;Abdominal pain Report STUDY: US Abdomen, Limited; 06/24/2019 8:10 am INDICATION: 23 y/o F with Abdominal pain. COMPARISON: None. ACCESSION NUMBER(S): [id number] ORDERING CLINICIAN: Evelyn Busch TECHNIQUE: Routine ultrasound [...] am Signed by: Funmilayo Johnson MD Technologist: BS Normal [facility] CMPon 06-22-2019 Albumin [Mass/Vol] 4.5 g/dL Normal 3.4-5.0 [facility] Comment on above: Performed By: #### 2 739792 #### [place] [employer] [address] [place] [address] Albumin/Globulin [Mass ratio] 1.4 {ratio} Normal 1.1-1.9 [facility] Comment on above: Performed By: #### 2 286831 #### [employer] [address] [place] [address] Alk Phos 64 Int._Unit/L Normal 33-110 [facility] Comment on above: Performed By: #### 2 065086 #### [employer] [address] [place] [address] ALT [Catalytic activity/Vol] 51 Int._Unit/L High 7-45 [facility] Comment on above: Performed By: #### 2 106647 #### [employer] [address] [place] [address] Anion gap [Moles/Vol] 12 mmol/L Normal 10-20 [facility] Comment on above: Performed By: #### 2 102615 #### [employer] [address] [place] [address] AST [Catalytic activity/Vol] 28 Int._Unit/L Normal 9-39 [facility] Comment on above: Performed By: #### 2 085166 #### [employer] [address] [place] [address] Bili Total 0.30 mg/dL Normal 0.00-1.20 [facility] Comment on above: Performed By: #### 2 654205 #### [employer] [address] [place] [address] Calcium [Mass/Vol] 9.4 mg/dL Normal 8.6-10.3 [facility] Comment on above: Performed By: #### 2 648049 #### [employer] [address] [place] [address] Chloride [Moles/Vol] 105 mmol/L Normal 98-107 [facility] Comment on above: Performed By: #### 2 356526 #### [employer] [address] [place] [address] CO2 [Moles/Vol] 25.0 mmol/L Normal 21.0-32.0 [facility] Comment on above: Performed By: #### 2 224699 #### [employer] [address] [place] [address] Creatinine [Mass/Vol] 0.9 mg/dL Normal 0.5-1.1 [facility] Comment on above: Performed By: #### 2 824983 #### [employer] [address] [place] [address] Globulin (S) [Mass/Vol] 3.0 g/dL Normal 2.0-4.0 [facility] Comment on above: Performed By: #### 2 207569 #### [employer] [address] [place] [address] Glucose [Mass/Vol] 80 mg/dL Normal 70-99 [facility] Comment on above: Performed By: #### 2 284826 #### [employer] [address] [place] [address] Potassium [Moles/Vol] 3.7 mmol/L Normal 3.5-5.3 [facility] Comment on above: Performed By: #### 2 792452 #### [employer] [address] [place] [address] Protein [Mass/Vol] 7.8 g/dL Normal 6.4-8.2 [facility] Comment on above: Performed By: #### 2 367032 #### [employer] [address] [place] [address] Sodium [Moles/Vol] 138 mmol/L Normal 136-145 [facility] Comment on above: Performed By: #### 2 666263 #### [employer] [address] [place] [address] Urea nitrogen [Mass/Vol] 16 mg/dL Normal 6-23 [facility] Comment on above: Performed By: #### 2 331495 #### [employer] [address] [place] [address] Urea nitrogen/Creatinine [Mass ratio] 17.8 ratio Normal 5.4-30.0 [facility] Comment on above: Performed By: #### 2 472889 #### [employer] [address] [place] [address] eGFRon 06-22-2019 GFR/1.73 sq M predicted among non-blacks MDRD (S/P/Bld) [Vol rate/Area] mL/min/{1.73_m2} Normal [facility] Comment on above: Order Comment: Order added by Discern Expert. Performed By: #### 2 022571 #### [employer] [address] [place] [address] Sed Rate Automatedon 019 Sed Rate Automated 24 mm/hr Normal [facility] Comment on above: Result Comment: AGE- SPECIFIC REFERENCE RANGES FOR SEDIMENTATION RATE AUTOMATED REFERENCE RANGE - MM/HR AGE MEN WOMEN 0-2 0-2 - PUBERTY 3-13 3-13 PUBERTY - 50 YRS 0-15 0-20 > 50 YRS 0-20 0-30 Performed By: #### 2 654253 #### [employer] [address] [place] [address] GENERAL PROCEDUREon 04-22-20 19 Tate Rodriguez Cesar, DO 04/22/2019 11:33 AM Study: EMG/NCV Date: 04/22/19 Patient Name: Jennifer Dick Patient : 1995 Preliminary Impression: 1. Normal study Final, full report to be scanned as soon as possible. Unmetric MRA Head w/o Contraston 03-08 MRA Head w/o Contrast Exam Date/Time: 03/30/2019 16:57 EDT Reason for Exam: SEVERE HEADACHE SHARP STABBING PAINS R/O ANEURYSM HEAD PAIN ARM AND LEG WEAKNESS Report STUDY: MRA Head w/o Contrast; 03/30/2019 4:57 pm INDICATION: SEVERE HEADACHE SHARP STABBING PAINS R/O ANEURYSM HEAD PAIN ARM AND LEG WEAKNESS. COMPARISON: None. ACCESSION NUMBER(S): [id number] ORDERING CLINICIAN: Italia Mcmillan TECHNIQUE: [id number] MRA of the head was performed. The images were reviewed as source images and maximum intensity projections. FINDINGS: There is no evidence of aneurysm, focal stenosis, or major branch occlusion. IMPRESSION: Unremarkable examination. FINAL REPORT Dictated: 03/31/2019 9:00 am Shantal Weaver MD Signed (Electronic Signature): 03/31/2019 9:00 am Signed by: Shantal Weaver MD Technologist: TASHIA Normal [facility] MRI Spine Cervical w/o Contr sourav 03-31-2019 MRI Spine Cervical w/o Contrast Exam Date/Time: 03/30/2019 16:57 EDT Reason for Exam: SEVERE HEADACHE SHARP STABBING PAINS R/O ANEURYSM HEAD PAIN ARM AND LEG WEAKNESS Report STUDY: MRI Spine Cervical w/o Contrast; 03/30/2019 4:57 pm INDICATION: SEVERE HEADACHE SHARP STABBING PAINS R/O ANEURYSM HEAD PAIN ARM AND LEG WEAKNESS. COMPARISON: None. ACCESSION NUMBER(S): [id number] ORDERING CLINICIAN: Italia Mcmillan TECHNIQUE: Sagittal T1, [...] Signed by: Shantal Weaver MD Technologist: TASHIA [facility] Sed Rate Automatedon 019 Sed Rate Automated 38 mm/hr [facility] Comment on above: Result Comment: AGE- SPECIFIC REFERENCE RANGES FOR SEDIMENTATION RATE AUTOMATED REFERENCE RANGE - MM/HR AGE MEN WOMEN 0-2 0-2 - PUBERTY 3-13 3-13 PUBERTY - 50 YRS 0-15 0-20 > 50 YRS 0-20 0-30 Performed By: #### 2 [id number] #### [employer] [address] [place] [address] C Urineon 02-13-2019 C Urine Final Report: [...] : <=4 S SXT : <=2/38 S [facility] Comment on above: Performed By: #### 2 758165 #### [place] [employer] [facility] [place] [address] UA Completeon 02-11-2019 Color (U) Yellow Normal Yellow [facility] Comment on above: Performed By: #### 2 817260 #### [employer] [address] [place] [address] Glucose (U) [Mass/Vol] Negative Normal Negative [facility] Comment on above: Performed By: #### 2 932559 #### [employer] [address] [place] [address] Ketones Ql (U) Negative Normal Negative [facility] Comment on above: Performed By: #### 2 776844 #### [employer] [address] [place] [id number] RBC (U) [#/Vol] 20-50 Abnormal 0-3 [facility] Comment on above: Performed By: #### 2 478493 #### [employer] [address] [place] [address] UA Blood 2+ Abnormal Negative [facility] Comment on above: Performed By: #### 2 769531 #### [employer] [address] [place] [phone] UA Bacteria 3+ /HPF Abnormal None [facility] Comment on above: Performed By: #### 2 000874 #### [employer] [address] [place] [address] UA Clarity Cloudy Abnormal Clear [facility] Comment on above: Performed By: #### 2 889889 #### [employer] [address] [place] [address] UA Leuk Est 2+ Abnormal Negative [facility] Comment on above: Performed By: #### 2 032224 #### [employer] [address] [place] [address] UA Mucous Occasional Abnormal Trace [facility] Comment on above: Performed By: #### 2 010589 #### [employer] [address] [place] [address] UA Nitrite Positive Abnormal Negative [facility] Comment on above: Performed By: #### 2 429711 #### [employer] [address] [place] [address] UA pH 6.0 Normal 4.6-8.0 [facility] Comment on above: Performed By: #### 2 834787 #### [employer] [address] [place] [address] UA Protein 1+ Abnormal Negative [facility] Comment on above: Performed By: #### 2 187713 #### [employer] [address] [place] [phone] UA Spec Grav 1.026 Normal 1.003-1.030 [facility] Comment on above: Performed By: #### 2 048910 #### [employer] [address] [place] [phone] UA Squam Epithelial 0-5 Normal 0-5 [facility] Comment on above: Performed By: #### 2 950472 #### [employer] [address] [place] [address] UA Urobilinogen Negative Normal [facility] Comment on above: Result Comment: Due to a manufacturing issue, low positive urobilinogen results may be fasely positive. Correlate with urine bilirubin and additional clinical/laboratory findings to assess the risk of hemolytic anemia or liver disease. If clinically indicated, repeat testing with an alternate method is available by contacting the laboratory within 24 hours. Performed By: #### 2 [id number] #### [employer] [facility] [place] [address] UA WBC >50 Abnormal 0-5 [facility] Comment on above: Performed By: #### 2 361294 #### [employer] [facility] [place] [address] Urobilinogen Qn (U) Negative Normal Negative [facility] Comment on above: Performed By: #### 2 678856 #### [employer] [address] [place] [address] MRI Brain w/o Contraston MRI Brain w/o Contrast Exam Date/Time: 01/29/2019 18:04 EDT Reason for Exam: MIGRAINE NEAR SYNCOPE;Headache Report STUDY: MRI Brain w/o Contrast; 01/29/2019 6:04 pm INDICATION: Headache. COMPARISON: None. ACCESSION NUMBER(S): [id number] ORDERING CLINICIAN: Evelyn Busch TECHNIQUE: The brain [...] or hemorrhage. THIS EXAMINATION WAS INTERPRETED AT [facility] FINAL REPORT Dictated: 01/30/2019 8:26 am Donny Gurrola MD Signed (Electronic Signature): 01/30/2019 8:26 am Signed by: Donny Gurrola MD Technologist: TASHIA Normal [facility] Auto Diffon 01-20-2019 Basophils (Bld) [#/Vol] 0.1 E3/mcL Normal 0.0-0.2 [facility] Comment on above: Order Comment: Order Added by Discern Expert. Performed By: #### 2 173590 #### [employer] [address] [place] [address] Basophils/100 WBC (Bld) 0.7 % Normal 0.0-2.0 [facility] Comment on above: Order Comment: Order Added by Discern Expert. Performed By: #### 2 432125 #### [employer] [facility] [place] [address] Eos Absolute 0.6 E3/mcL Normal 0.0-0.7 [facility] Comment on above: Order Comment: Order Added by Discern Expert. Performed By: #### 2 793211 #### [employer] [address] [place] [address] Eosinophils/100 WBC (Bld) 5.1 % Normal 0.0-11.0 [facility] Comment on above: Order Comment: Order Added by Discern Expert. Performed By: #### 2 443985 #### [employer] [facility] [place] [address] Lymphocytes (Bld) [#/Vol] 3.1 E3/mcL Normal 1.2-3.4 [facility] Comment on above: Order Comment: Order Added by Discern Expert. Performed By: #### 2 770860 #### [employer] [address] [place] [address] Lymphocytes/100 WBC (Bld) 27.4 % Normal 20.0-55.0 [facility] Comment on above: Order Comment: Order Added by Discern Expert. Performed By: #### 2 374054 #### [employer] [address] [place] [address] Clare Absolute 0.6 E3/mcL Normal 0.0-0.7 [facility] Comment on above: Order Comment: Order Added by Discern Expert. Performed By: #### 2 482124 #### [employer] [address] [place] [address] Monocytes/100 WBC (Bld) 5.3 % Normal 0.0-10.0 [facility] Comment on above: Order Comment: Order Added by Discern Expert. Performed By: #### 2 316926 #### [employer] [address] [place] [address] Neutro Absolute 6.9 E3/mcL High 1.4-6.5 [facility] Comment on above: Order Comment: Order Added by Discern Expert. Performed By: #### 2 997128 #### [employer] [address] [place] [address] Neutro Auto 61.5 % Normal 37.0-75.0 [facility] Comment on above: Order Comment: Order Added by Discern Expert. Performed By: #### 2 214496 #### [employer] [address] [place] [address] BMPon 01-20-2019 Anion gap [Moles/Vol] 12 mmol/L Normal 10-20 [facility] Comment on above: Performed By: #### 2 262477 #### [employer] [address] [place] [address] Calcium [Mass/Vol] 9.3 mg/dL Normal 8.6-10.3 [facility] Comment on above: Performed By: #### 2 971049 #### [employer] [address] [place] [address] Chloride [Moles/Vol] 104 mmol/L Normal 98-107 [facility] Comment on above: Performed By: #### 2 639706 #### [employer] [address] [place] [address] CO2 [Moles/Vol] 26.0 mmol/L Normal 21.0-32.0 [facility] Comment on above: Performed By: #### 2 797850 #### [employer] [address] [place] [address] Creatinine [Mass/Vol] 0.9 mg/dL Normal 0.5-1.1 [facility] Comment on above: Performed By: #### 2 874040 #### [employer] [address] [place] [address] Glucose [Mass/Vol] 87 mg/dL Normal 70-99 [facility] Comment on above: Performed By: #### 2 736499 #### [employer] [address] [place] [address] Potassium [Moles/Vol] 4.0 mmol/L Normal 3.5-5.3 [facility] Comment on above: Performed By: #### 2 558800 #### [employer] [address] [place] [address] Sodium [Moles/Vol] 138 mmol/L Normal 136-145 [facility] Comment on above: Performed By: #### 2 533225 #### [employer] [address] [place] [address] Urea nitrogen [Mass/Vol] 21 mg/dL Normal 6-23 [facility] Comment on above: Performed By: #### 2 673581 #### [employer] [address] [place] [address] Urea nitrogen/Creatinine [Mass ratio] 23.3 ratio Normal 5.4-30.0 [facility] Comment on above: Performed By: #### 2 958387 #### [employer] [address] [place] [address] CBC w/ Auto Diffon 9 Erythrocyte distribution width (RBC) [Ratio] 13.0 % Normal 11.5-14.5 [facility] Comment on above: Performed By: #### 2 851174 #### [employer] [address] [place] [address] Hematocrit (Bld) [Volume fraction] 37.7 % Normal 36.0-48.0 [facility] Comment on above: Performed By: #### 2 508631 #### [employer] [address] [place] [address] Hemoglobin (Bld) [Mass/Vol] 12.4 g/dL Normal 12.0-16.0 [facility] Comment on above: Performed By: #### 2 293761 #### [employer] [address] [place] [address] MCH (RBC) [Entitic mass] 29.8 pg Normal 27.0-31.0 [facility] Comment on above: Performed By: #### 2 613605 #### [employer] [address] [place] [address] MCHC (RBC) [Mass/Vol] 33.0 g/dL Normal 33.0-37.0 [facility] Comment on above: Performed By: #### 2 099448 #### [employer] [address] [place] [address] MCV (RBC) [Entitic vol] 90.3 fL Normal 78.0-100.0 [facility] Comment on above: Performed By: #### 2 882193 #### [employer] [address] [place] [address] Platelet mean volume (Bld) [Entitic vol] 8.8 fL Normal 7.4-11.0 [facility] Comment on above: Performed By: #### 2 218044 #### [employer] [address] [place] [address] Platelets (Bld) [#/Vol] 317 E3/mcL Normal 130-400 [facility] Comment on above: Performed By: #### 2 560253 #### [employer] [address] [place] [address] RBC (Bld) [#/Vol] 4.18 E6/mcL Normal 3.90-5.40 [facility] Comment on above: Performed By: #### 2 315738 #### [employer] [address] [place] [address] WBC (Bld) [#/Vol] 11.3 E3/mcL High 3.6-11.0 [facility] Comment on above: Performed By: #### 2 027933 #### LUZ ELENAMichael [address] [address] D-Dimeron 01-20-2019 D-Dimer <215.00 Normal <=500.00 [facility] Comment on above: Result Comment: When the concentration of D-dimer is below the bar manager's cutoff, 500 ng/mL FEU, it may be possible to exclude the diagnosis of DVT and PE in conjunction with a clinical pretest probability assessment. Performed By: #### 2 [id number] #### [employer] ELENAMichael [address] [address] Magnesiumon 01-20-2019 Magnesium [Mass/Vol] 2.1 mg/dL Normal 1.6-2.4 [facility] Comment on above: Performed By: #### 2 010744 #### [place] [id number] Troponin-Ion 01-20-2019 Troponin I.cardiac [Mass/Vol] ng/mL Normal .00-.03 [facility] Comment on above: Performed By: #### 2 [id number] #### [employer] [address] [address] U BhCG [place] 01-20-2019 HCG.beta subunit Qn Negative Normal Neg [facility] Comment on above: Performed By: #### 2 538644 #### [employer]to [address] [place] [address] UA Completeon 01-20-2019 Color (U) Yellow Normal Yellow [facility] Comment on above: Performed By: #### 2 517351 #### [employer] ELENAMichael Scotto [address] [place] [address] Glucose (U) [Mass/Vol] Negative Normal Negative [facility] Comment on above: Performed By: #### 2 [id number] #### LUZ ELENAMichael DumontHemo [address] [place] [address] Ketones Ql (U) Negative Normal Negative [facility] Comment on above: Performed By: #### 2 [id number] #### LUZ ELENA RemHemo [address] [place] [address] RBC (U) [#/Vol] 20-50 Abnormal 0-3 [facility] Comment on above: Performed By: #### 2 [id number] #### LUZ ELENA RemHemo [address] [place] [address] UA Blood 3+ Normal Negative [facility] Comment on above: Performed By: #### 2 [id number] #### LUZ ELENA RemHemo [address] [place] [address] UA Clarity SltCloudy Abnormal Clear [facility] Comment on above: Performed By: #### 2 [id number] #### LUZ ELENA RemHemo [address] [place] [address] UA Leuk Est Negative Normal Negative [facility] Comment on above: Performed By: #### 2 [id number] #### LUZ ELENA RemHemo [address] [place] [address] UA Mucous Few Abnormal Trace [facility] Comment on above: Performed By: #### 2 [id number] #### LUZ ELENA RemHemo [address] [place] [address] UA Nitrite Negative Normal Negative [facility] Comment on above: Performed By: #### 2 [id number] #### LUZ ELENA RemHemo [address] [place] [address] UA pH 6.0 Normal 4.6-8.0 [facility] Comment on above: Performed By: #### 2 [id number] #### LUZ ELENA RemHemo [address] [place] [address] UA Protein Negative Normal Negative [facility] Comment on above: Performed By: #### 2 [id number] #### LUZ ELENA RemHemo [address] [place] [address] UA Spec Grav 1.028 Normal 1.003-1.030 [facility] Comment on above: Performed By: #### 2 [id number] #### LUZ ELENA RemHemo [address] [place] [address] UA Squam Epithelial 0-5 Normal 0-5 [facility] Comment on above: Performed By: #### 2 [id number] #### LUZ ELENA DumontHemo [address] [place] [address] UA Urobilinogen Negative Normal [facility] Comment on above: Result Comment: Due to a manufacturing issue, low positive urobilinogen results may be fasely positive. Correlate with urine bilirubin and additional clinical/laboratory findings to assess the risk of hemolytic anemia or liver disease. If clinically indicated, repeat testing with an alternate method is available by contacting the laboratory within 24 hours. Performed By: #### 2 [id number] #### LUZ ELENA RemHemo [address] [place] [address] UA WBC 0-5 Normal 0-5 [facility] Comment on above: Performed By: #### 2 [id number] #### LUZ ELENA DumontHemo [address] [place] [address] Urobilinogen Qn (U) Negative Normal Negative [facility] Comment on above: Performed By: #### 2 [id number] #### LUZ ELENA DumontHemo [address] [place] [address] XR Chest AP Portableon 01-20 XR Chest AP Portable Exam Date/Time: 01/20/2019 19:52 EDT Reason for Exam: Chest pain Report STUDY: XR Chest AP Portable; 01/20/2019 7:52 pm INDICATION: Chest pain. COMPARISON: None. ACCESSION NUMBER(S): [id number] ORDERING CLINICIAN: Mayra Navarrete FINDINGS: Single portable [...] pm Signed by: Ale Raymond MD Technologist: [facility] eGFRon 01-20-2019 GFR/1.73 sq M predicted among non-blacks MDRD (S/P/Bld) [Vol rate/Area] mL/min/{1.73_m2} Normal [facility] Comment on above: Order Comment: Order Added by Discern Expert. Performed By: #### 2 [id number] #### LUZ ELENA RemHemo [facility] [place] [id number] IGP W/hpv Rfx [id number] 12-26 Diagnosis: See Ref Lab Report Normal [facility] Comment on above: Order Comment: LMP: 12/15/18 Performed By: #### 1 [id number] #### LUZ ELENA Send Outs Subsection [address] [place], [place] [id number] Pathology ([facility])on 12-19-2018 Pathology ([facility]) FINAL GYNECOLOGIC CYTOLOGY REPORT [id number] SPECIMEN ADEQUACY Satisfactory for Evaluation. No endocervical cells/transformation zone component present. Excessive cytolysis in sample. Sample is obscured by: Lubricant/Foreign material Blood GENERAL CATEGORIZATION Negative for Intraepithelial Lesion or Malignancy COMMENT Sample has been treated with glacial acetic acid for excessive blood, debris, inflammation and/or lubricant. CLINICAL HISTORY LMP: 12/15/2018 SPECIMEN (A) SCREENING CERVICAL/ENDOCERVICAL THIN PREP VIAL Performed at [facility], [address] [place] [address] Screened by: Signed Out by: DAMARIS STEELE Display Maker Reported: 12/25/2018 Normal [facility] Comment on above: Performed By: #### G YN #### [facility] [address] [place] [address] Auto Diffon 09-16-2018 Basophils (Bld) [#/Vol] 0.1 E3/mcL Normal 0.0-0.2 [facility] Comment on above: Order Comment: Order Added by Discern Expert. Performed By: #### 2 [id number] #### LUZ ELENA RemHemo [facility] [place] [id number] Basophils/100 WBC (Bld) 0.7 % Normal 0.0-2.0 [facility] Comment on above: Order Comment: Order Added by Discern Expert. Performed By: #### 2 [id number] #### LUZ ELENA RemHemo [address] [place] [id number] Eos Absolute 0.2 E3/mcL Normal 0.0-0.7 [facility] Comment on above: Order Comment: Order Added by Discern Expert. Performed By: #### 2 [id number] #### LUZ ELENA RemHemo [address] [place] [address] Eosinophils/100 WBC (Bld) 2.0 % Normal 0.0-11.0 [facility] Comment on above: Order Comment: Order Added by Discern Expert. Performed By: #### 2 [id number] #### LUZ ELENA RemHemo [address] [place] [address] Lymphocytes (Bld) [#/Vol] 4.0 E3/mcL High 1.2-3.4 [facility] Comment on above: Order Comment: Order Added by Discern Expert. Performed By: #### 2 [id number] #### LUZ ELENA RemHemo [address] [place] [address] Lymphocytes/100 WBC (Bld) 35.6 % Normal 20.0-55.0 [facility] Comment on above: Order Comment: Order Added by Discern Expert. Performed By: #### 2 [id number] #### LUZ ELENA RemHemo [address] [place] [address] Clare Absolute 0.8 E3/mcL High 0.0-0.7 [facility] Comment on above: Order Comment: Order Added by Discern Expert. Performed By: #### 2 [id number] #### LUZ ELENA RemHemo [address] [place] [address] Monocytes/100 WBC (Bld) 7.1 % Normal 0.0-10.0 [facility] Comment on above: Order Comment: Order Added by Discern Expert. Performed By: #### 2 [id number] #### LUZ ELENA RemHemo [address] [place] [address] Neutro Absolute 6.1 E3/mcL Normal 1.4-6.5 [facility] Comment on above: Order Comment: Order Added by Discern Expert. Performed By: #### 2 [id number] #### LUZ ELENA RemHemo [address] [place] [address] Neutro Auto 54.6 % Normal 37.0-75.0 [facility] Comment on above: Order Comment: Order Added by Discern Expert. Performed By: #### 2 [id number] #### LUZ ELENA RemHemo [address] [place] [address] CBC w/ Auto Diffon Erythrocyte distribution width (RBC) [Ratio] 13.2 % Normal 11.5-14.5 [facility] Comment on above: Performed By: #### 2 [id number] #### LUZ ELENA DumontHemo [address] [place] [address] Hematocrit (Bld) [Volume fraction] 36.7 % Normal 36.0-48.0 [facility] Comment on above: Performed By: #### 2 [id number] #### LUZ ELENA RemHemo [address] [place] [address] Hemoglobin (Bld) [Mass/Vol] 12.0 g/dL Normal 12.0-16.0 [facility] Comment on above: Performed By: #### 2 561946 #### LUZ ELENA DumontHemo [address] [place] [address] MCH (RBC) [Entitic mass] 29.7 pg Normal 27.0-31.0 [facility] Comment on above: Performed By: #### 2 513698 #### LUZ ELENA RemHemo [address] [place] [address] MCHC (RBC) [Mass/Vol] 32.6 g/dL Low 33.0-37.0 [facility] Comment on above: Performed By: #### 2 782884 #### LUZ ELENA RemHemo [address] [place] [address] MCV (RBC) [Entitic vol] 91.2 fL Normal 78.0-100.0 [facility] Comment on above: Performed By: #### 2 [id number] #### LUZ ELENA RemHemo [address] [place] [address] Platelet mean volume (Bld) [Entitic vol] 8.9 fL Normal 7.4-11.0 [facility] Comment on above: Performed By: #### 2 [id number] #### LUZ ELENA RemHemo [address] [place] [address] Platelets (Bld) [#/Vol] 351 E3/mcL Normal 130-400 [facility] Comment on above: Performed By: #### 2 [id number] #### LUZ ELENA RemHemo [address] [place] [address] RBC (Bld) [#/Vol] 4.03 E6/mcL Normal 3.90-5.40 [facility] Comment on above: Performed By: #### 2 [id number] #### LUZ ELENA RemHemo [address] [place] [address] WBC (Bld) [#/Vol] 11.1 E3/mcL High 3.6-11.0 [facility] Comment on above: Performed By: #### 2 110476 #### LUZ ELENA RemHemo [address] [place] [address] CMPon 09-16-2018 Albumin [Mass/Vol] 4.3 g/dL Normal 3.4-5.0 [facility] Comment on above: Performed By: #### 2 [id number] #### LUZ ELENA [employer] [address] [place], [place] [address] Albumin/Globulin [Mass ratio] 1.1 {ratio} Normal 1.1-1.9 [facility] Comment on above: Performed By: #### 2 634941 #### LUZ ELENA [employer] [address] [place] [address] Alk Phos 44 Int._Unit/L Normal 33-110 [facility] Comment on above: Performed By: #### 2 [id number] #### LUZ ELENA [employer] [address] [place] [address] ALT [Catalytic activity/Vol] 13 Int._Unit/L Normal 7-45 [facility] Comment on above: Performed By: #### 2 [id number] #### LUZ ELENA [employer] [address] [place] [address] Anion gap [Moles/Vol] 11 mmol/L Normal 10-20 [facility] Comment on above: Performed By: #### 2 [id number] #### [facility] [employer] [address] [place] [address] AST [Catalytic activity/Vol] 16 Int._Unit/L Normal 9-39 [facility] Comment on above: Performed By: #### 2 [id number] #### [facility] [employer] [address] [place] [address] Bili Total 0.67 mg/dL Normal 0.00-1.20 [facility] Comment on above: Performed By: #### 2 403194 #### LUZ ELENA [employer] [address] [place] [address] Calcium [Mass/Vol] 9.9 mg/dL Normal 8.6-10.3 [facility] Comment on above: Performed By: #### 2 240279 #### LUZ ELENA [employer] [address] [place] [address] Chloride [Moles/Vol] 104 mmol/L Normal 98-107 [facility] Comment on above: Performed By: #### 2 [id number] #### LUZ ELENA [employer] [address] [place] [address] CO2 [Moles/Vol] 26.0 mmol/L Normal 21.0-32.0 [facility] Comment on above: Performed By: #### 2 [id number] #### LUZ ELENA [employer] [address] [place] [address] Creatinine [Mass/Vol] 0.8 mg/dL Normal 0.5-1.1 [facility] Comment on above: Performed By: #### 2 [id number] #### LUZ ELENA [employer] [address] [place] [address] Globulin (S) [Mass/Vol] 4.0 g/dL Normal 2.0-4.0 [facility] Comment on above: Performed By: #### 2 [id number] #### LUZ ELENA [employer] [address] [place] [address] Glucose [Mass/Vol] 89 mg/dL Normal 70-99 [facility] Comment on above: Performed By: #### 2 783972 #### LUZ ELENA [employer] [address] [place] [address] Potassium [Moles/Vol] 4.0 mmol/L Normal 3.5-5.3 [facility] Comment on above: Performed By: #### 2 949198 #### LUZ ELENA [employer] [address] [place] [address] Protein [Mass/Vol] 8.2 g/dL Normal 6.4-8.2 [facility] Comment on above: Performed By: #### 2 [id number] #### LUZ ELENA [employer] [address] [place], [place] [address] Sodium [Moles/Vol] 137 mmol/L Normal 136-145 [facility] Comment on above: Performed By: #### 2 [id number] #### LUZ ELENA [employer] [address] [place] [address] Urea nitrogen [Mass/Vol] 20 mg/dL Normal 6-23 [facility] Comment on above: Performed By: #### 2 [id number] #### LUZ ELENA [employer] [address] [place], [place] [address] Urea nitrogen/Creatinine [Mass ratio] 25.0 ratio Normal 5.4-30.0 [facility] Comment on above: Performed By: #### 2 [id number] #### LUZ ELENA [employer] [address] [place] [address] [id number] 09-16-2018 HbA1c (Bld) [Mass fraction] 5.3 % Normal 4.0-6.3 [facility] Comment on above: Performed By: #### 3 [id number] #### LUZ ELENA Chemistry Manual Subsection [address] [place] [address] TSHon 09-16-2018 TSH Qn 4.05 mcIU/mL Normal 0.30-5.60 [facility] Comment on above: Performed By: #### 2 [id number] #### LUZ ELENA [employer] [address] [place], [place] [address] eGFRon 09-16-2018 GFR/1.73 sq M predicted among non-blacks MDRD (S/P/Bld) [Vol rate/Area] mL/min/{1.73_m2} Normal [facility] Comment on above: Order Comment: Order added by Discern Expert. Performed By: #### 1 [id number] #### LUZ ELENA [employer] [address] [place] [address] XR Knee Left 4+ Views (Note in Comments)on 12-30-2017 XR Knee Left 4+ Views (Note in Comments) X-ray of the left knee 4 views standing AP 45 PA standing lateral merchant film reveal an apparently normal-appearing left knee Invalid Interpretation Code [facility] Vital Signs Date Time Vital Sign Value Performing Clinician Facility 06-11-2025 07:34-0400 Body mass index (BMI) [Ratio] 41.02 kg/m2 Lorraine Roldan MERCHANDISING TEAM LEAD.CNM Work Phone: [facility] 06-11-2025 07:34-0400 Body weight 108.41 kg Lorraine Roldan MERCHANDISING TEAM LEAD.CNM Work Phone: [facility] 06-11-2025 07:34-0400 Diastolic blood pressure 74 mm[Hg] Lorraine Flaquito MERCHANDISING TEAM LEAD.CNM Work Phone: [facility] 06-11-2025 07:34-0400 Systolic blood pressure 108 mm[Hg] Lorraine Roldan MERCHANDISING TEAM LEAD.CNM Work Phone: [facility] 06-04-2025 08:26-0400 Body mass index (BMI) [Ratio] 41.02 kg/m2 Taylor Wooten APRN.CHIEF PHARMACIST Work Phone: [facility] 06-04-2025 08:26-0400 Body weight 108.4 kg Taylor Wooten APRN.CHIEF PHARMACIST Work Phone: [facility] 06-04-2025 08:26-0400 Heart rate 107 /min Taylor Wooten APRN.CHIEF PHARMACIST Work Phone: [facility] 06-04-2025 08:26-0400 SaO2% (BldA) [Mass fraction] 98 % Taylor Wooten APRN.CHIEF PHARMACIST Work Phone: [facility] 04-16-2025 08:54-0400 Body mass index (BMI) [Ratio] 38.72 kg/m2 Lorraine Roldan APRN.CNM Work Phone: [facility] 04-16-2025 08:54-0400 Body weight 102.33 kg Lroraine Roldan APRN.CNM Work Phone: [facility] 04-16-2025 08:54-0400 Diastolic blood pressure 62 mm[Hg] Lorraine Flaquito MERCHANDISING TEAM LEAD.CNM Work Phone: [facility] 04-16-2025 08:54-0400 Systolic blood pressure 110 mm[Hg] Lorraine Roldan MERCHANDISING TEAM LEAD.CNM Work Phone: [facility] 03-23-2025 12:00-0400 Diastolic blood pressure 65 mm[Hg] Kai Vera DO Work Phone: [facility] 03-23-2025 12:00-0400 Heart rate 81 /min Kai Vera DO Work Phone: [facility] 03-23-2025 12:00-0400 Respiratory rate 17 /min Kai Vera DO Work Phone: [facility] 03-23-2025 12:00-0400 SaO2% (BldA) [Mass fraction] 99 % Kai Vera DO Work Phone: [facility] 03-23-2025 12:00-0400 Systolic blood pressure 98 mm[Hg] Kai Vera DO Work Phone: [facility] 03-23-2025 10:03-0400 Body height 162.6 cm Kai Vera DO Work Phone: [facility] 03-23-2025 10:03-0400 Body mass index (BMI) [Ratio] 37.42 kg/m2 Kai Vera DO Work Phone: [facility] 03-23-2025 10:03-0400 Body temperature 98.29 [degF] Kai Vera DO Work Phone: [facility] 03-23-2025 10:03-0400 Body weight 98.88 kg Kai Vera DO Work Phone: [facility] 03-19-2025 09:06-0400 Body mass index (BMI) [Ratio] 37.42 kg/m2 Lorraine Roldan APRN.CNM Work Phone: [facility] 03-19-2025 09:06-0400 Body weight 98.88 kg Lorraine Roldan APRN.CNM Work Phone: [facility] 03-19-2025 09:06-0400 Diastolic blood pressure 70 mm[Hg] Lorraine Roldan APRN.CNM Work Phone: [facility] 03-19-2025 09:06-0400 Systolic blood pressure 108 mm[Hg] Lorraine Roldan APRN.CNM Work Phone: [facility] 03-03-2025 11:47-0400 Body mass index (BMI) [Ratio] 37.63 kg/m2 Chrissie Hadaniele MERCHANDISING TEAM LEAD.CHIEF PHARMACIST Work Phone: [facility] 03-03-2025 11:47-0400 Body weight 99.43 kg Chrissie Hadaniele MERCHANDISING TEAM LEAD.CHIEF PHARMACIST Work Phone: [facility] 03-03-2025 11:47-0400 Diastolic blood pressure 70 mm[Hg] Chrissie Haury MERCHANDISING TEAM LEAD.CHIEF PHARMACIST Work Phone: [facility] 03-03-2025 11:47-0400 Systolic blood pressure 118 mm[Hg] Chrissie Hadaniele MERCHANDISING TEAM LEAD.CHIEF PHARMACIST Work Phone: [facility] 12-30-2024 08:16-0400 Body height 162.6 cm Evelyn Oberhauser DO Work Phone: [facility] [employer] [facility] 12-30-2024 08:16-0400 Body mass index (BMI) [Ratio] 36.73 kg/m2 Evelyn [facility]hauser DO [facility] 12-30-2024 08:16-0400 Body weight 97.07 kg Evelyn Oberhauser DO Work Phone: [facility] 12-30-2024 08:16-0400 Diastolic blood pressure 63 mm[Hg] Evelyn Oberhauser DO [facility] 12-30-2024 08:16-0400 Heart rate 83 /min Evelyn Oberhauser DO Work Phone: [facility] 12-30-2024 08:16-0400 Systolic blood pressure 112 mm[Hg] Evelyn Oberhauser DO Work Phone: [facility] 11-20-2024 07:25-0500 Body height 161.3 cm Alba [place] MERCHANDISING TEAM LEAD.CHIEF PHARMACIST Work Phone: [facility] 11-20-2024 07:25-0500 Body mass index (BMI) [Ratio] 38.01 kg/m2 Alba Briseyda MERCHANDISING TEAM LEAD.CHIEF PHARMACIST Work Phone: [facility] 11-20-2024 07:25-0500 Body weight 98.88 kg Alba Briseyda MERCHANDISING TEAM LEAD.CHIEF PHARMACIST Work Phone: [facility] 11-20-2024 07:25-0500 Diastolic blood pressure 82 mm[Hg] Alba Briseyda MERCHANDISING TEAM LEAD.CHIEF PHARMACIST Work Phone: [facility] 11-20-2024 07:25-0500 Systolic blood pressure 124 mm[Hg] Alba Briseyda MERCHANDISING TEAM LEAD.CHIEF PHARMACIST Work Phone: [facility] 10-23-2024 08:27-0500 Body height 162.6 cm Tammy Simeon MERCHANDISING TEAM LEAD-CHIEF PHARMACIST Work Phone: [facility] 10-23-2024 08:27-0500 Body mass index (BMI) [Ratio] 38.11 kg/m2 Tammy Simeon MERCHANDISING TEAM LEAD-CHIEF PHARMACIST Work Phone: [facility] 10-23-2024 08:27-0500 Body weight 100.7 kg Tammy Simeon MERCHANDISING TEAM LEAD-CHIEF PHARMACIST Work Phone: [facility] 10-23-2024 08:27-0500 Diastolic blood pressure 81 mm[Hg] Tammy Simeon MERCHANDISING TEAM LEAD-CHIEF PHARMACIST Work Phone: [facility] 10-23-2024 08:27-0500 Heart rate 98 /min Tammy Simeon MERCHANDISING TEAM LEAD-CHIEF PHARMACIST Work Phone: [facility] 10-23-2024 08:27-0500 Systolic blood pressure 123 mm[Hg] Tammy Simeon MERCHANDISING TEAM LEAD-CHIEF PHARMACIST Work Phone: [facility] 04-17-2024 09:27-0400 Body height 162.6 cm Tammy Simeon MERCHANDISING TEAM LEAD-CHIEF PHARMACIST Work Phone: [facility] 04-17-2024 09:27-0400 Body mass index (BMI) [Ratio] 36.99 kg/m2 Tammy Simeon MERCHANDISING TEAM LEAD-CHIEF PHARMACIST Work Phone: [facility] 04-17-2024 09:27-0400 Body weight 97.75 kg Tammy Simeon MERCHANDISING TEAM LEAD-CHIEF PHARMACIST Work Phone: [facility] 04-17-2024 09:27-0400 Diastolic blood pressure 73 mm[Hg] Tammy Simeon MERCHANDISING TEAM LEAD-CHIEF PHARMACIST Work Phone: [facility] 04-17-2024 09:27-0400 Heart rate 75 /min Tammy Simeon MERCHANDISING TEAM LEAD-CHIEF PHARMACIST Work Phone: [facility] 04-17-2024 09:27-0400 Systolic blood pressure 108 mm[Hg] Tammy Simeon MERCHANDISING TEAM LEAD-CHIEF PHARMACIST Work Phone: [facility] 03-10-2024 15:46-0400 Body height 162.6 cm Ghulam Renteria MD Work Phone: [facility] 03-10-2024 15:46-0400 Body mass index (BMI) [Ratio] 36.39 kg/m2 Ghulam Renteria MD Work Phone: [facility] 03-10-2024 15:46-0400 Body temperature 98.2 [degF] Ghulam Renteria MD Work Phone: [facility] 03-10-2024 15:46-0400 Body weight 96.16 kg Ghulam Renteria MD Work Phone: [facility] 03-10-2024 15:46-0400 Diastolic blood pressure 64 mm[Hg] Ghulam Renteria MD Work Phone: [facility] 03-10-2024 15:46-0400 Heart rate 88 /min Ghulam Renteria MD Work Phone: [facility] 03-10-2024 15:46-0400 Systolic blood pressure 98 mm[Hg] Ghulam Renteria MD Work Phone: [facility] 02-26-2024 09:43-0400 Body height 162.6 cm Sanya Yasmeen PA-C Work Phone: [facility] 02-26-2024 09:43-0400 Body mass index (BMI) [Ratio] 36.05 kg/m2 Sanya Yasmeen PA-C Work Phone: [facility] 02-26-2024 09:43-0400 Body temperature 98.6 [degF] Sanya Yasmeen PA-C Work Phone: [facility] 02-26-2024 09:43-0400 Body weight 95.25 kg Sanya Yasmeen PA-C Work Phone: [facility] 02-26-2024 09:43-0400 Diastolic blood pressure 79 mm[Hg] Sanya Yasmeen PA-C Work Phone: [facility] 02-26-2024 09:43-0400 Heart rate 77 /min Sanya Yasmeen PA-C Work Phone: [facility] 02-26-2024 09:43-0400 Respiratory rate 16 /min Sanya Yasmeen PA-C Work Phone: [facility] 02-26-2024 09:43-0400 SaO2% (BldA) [Mass fraction] 98 % Sanya Yasmeen PA-C Work Phone: [facility] 02-26-2024 09:43-0400 Systolic blood pressure 111 mm[Hg] Sanya Yasmeen PA-C Work Phone: [facility] 10-02-2023 09:29-0500 Body height 162.6 cm Gus Bradley PA-C Work Phone: [facility] 10-02-2023 09:29-0500 Body mass index (BMI) [Ratio] 35.82 kg/m2 Gus Newbill PA-C Work Phone: [facility] 10-02-2023 09:29-0500 Body temperature 97.3 [degF] Gus Newbill PA-C Work Phone: [facility] 10-02-2023 09:29-0500 Body weight 94.67 kg Gus Newbill PA-C Work Phone: [facility] 10-02-2023 09:29-0500 Diastolic blood pressure 82 mm[Hg] Gus Newbill PA-C Work Phone: [facility] 10-02-2023 09:29-0500 Heart rate 115 /min Gus Newbill PA-C Work Phone: [facility] 10-02-2023 09:29-0500 Systolic blood pressure 132 mm[Hg] Gus Newbill PA-C Work Phone: [facility] 09-25-2023 11:50-0500 Diastolic blood pressure 87 mm[Hg] Evelyn Del Rio MD Work Phone: [facility] 09-25-2023 11:50-0500 Heart rate 54 /min Evelyn Del Rio MD Work Phone: [facility] 09-25-2023 11:50-0500 Respiratory rate 14 /min Evelyn Del Rio MD Work Phone: [facility] 09-25-2023 11:50-0500 SaO2% (BldA) [Mass fraction] 97 % Evelyn Del Rio MD Work Phone: [facility] 09-25-2023 11:50-0500 Systolic blood pressure 116 mm[Hg] Evelyn Del Rio MD Work Phone: [facility] 09-25-2023 09:43-0500 Body temperature 97.9 [degF] Evelyn Del Rio MD Work Phone: [facility] 09-25-2023 06:21-0500 Body height 163 cm Evelyn Del Rio MD Work Phone: [facility] 09-25-2023 06:21-0500 Body mass index (BMI) [Ratio] 36.09 kg/m2 Evelyn Del Rio MD Work Phone: [facility] 09-25-2023 06:21-0500 Body weight 95.9 kg Evelyn Del Rio MD Work Phone: [facility] 09-05-2023 14:07-0500 Body height 162.6 cm Evelyn Del Rio MD Work Phone: [facility] 09-05-2023 14:07-0500 Body mass index (BMI) [Ratio] 37.14 kg/m2 Evelyn Del Rio MD Work Phone: [phone] [place] [address] 09-05-2023 14:07-0500 Body weight 98.16 kg Evelyn Del Rio MD Work Phone: [facility] 09-05-2023 14:07-0500 Diastolic blood pressure 68 mm[Hg] Evelyn Del Rio MD Work Phone: [facility] 09-05-2023 14:07-0500 Heart rate 80 /min Evelyn Del Rio MD Work Phone: [facility] 09-05-2023 14:07-0500 Systolic blood pressure 112 mm[Hg] Evelyn Del Rio MD Work Phone: [facility] 08-06-2023 15:55-0400 Body height 162.6 cm Gus Bradley PA-C Work Phone: [facility] 08-06-2023 15:55-0400 Body mass index (BMI) [Ratio] 35.94 kg/m2 Gus Bradley PA-C Work Phone: [facility] 08-06-2023 15:55-0400 Body temperature 98.01 [degF] Gus Newbill PA-C Work Phone: [facility] 08-06-2023 15:55-0400 Body weight 94.97 kg Gus Newbill PA-C Work Phone: [facility] 08-06-2023 15:55-0400 Diastolic blood pressure 81 mm[Hg] Gus Newbill PA-C Work Phone: [facility] 08-06-2023 15:55-0400 Heart rate 71 /min Gus Newbill PA-C Work Phone: [facility] 08-06-2023 15:55-0400 Systolic blood pressure 114 mm[Hg] Gus Newbill PA-C Work Phone: [facility] 07-06-2023 10:40-0400 Body height Memo Quigley Other [employer] Other 07-06-2023 10:40-0400 Body mass index (BMI) [Ratio] 36.9 kg/m2 Memo Quigley Other [employer] Other 07-06-2023 10:40-0400 Body temperature 98.4 [degF] Memo Quigley Other [employer] Other 07-06-2023 10:40-0400 Body weight 97.52 kg Memo Quigley Other [employer] Other 07-06-2023 10:40-0400 Respiratory rate 20 /min Memo Quigley Other [employer] Other 07-06-2023 10:40-0400 SaO2% (BldA) [Mass fraction] 98 % Memo Quigley Other [employer] Other 07-05-2023 14:03-0400 Body height 162.56 cm Evelyn L Oberhauser Work Phone: [facility] DO Work Phone: 07-05-2023 14:03-0400 Body mass index (BMI) [Ratio] 36.9 kg/m2 Evelyn L Oberhauser Work Phone: RU-Qfrhtcxae-Qtmjgto e B 101 DO Work Phone: 07-05-2023 14:03-0400 Body surface area Derived from formula 2.02 m2 Evelyn L Oberhauser Work Phone: CX-Colyfwclu-Clqbspf e B 101 DO Work Phone: 07-05-2023 14:03-0400 Body weight 97.52 kg Evelyn L Oberhauser Work Phone: NP-Otdvoaeji-Dnlcnhd e B 101 DO Work Phone: 07-05-2023 14:03-0400 Diastolic blood pressure 62 mm[Hg] Evelyn L Oberhauser Work Phone: PD-Iutlcbpsj-Aivzizh e B 101 DO Work Phone: 07-05-2023 14:03-0400 Heart rate 97 /min Evelyn L Oberhauser Work Phone: IS-Mbgtjlbnx-Nfbheio e B 101 DO Work Phone: 07-05-2023 14:03-0400 Systolic blood pressure 133 mm[Hg] Evelyn L Oberhauser Work Phone: FL-Lchsywwzt-Ypdqjlk e B 101 DO Work Phone: 06-19-2023 15:13-0400 Body temperature 98.8 [degF] Evelyn L Oberhauser Work Phone: WO-Pwvguxlnr-Rpvjhe 170 Work Phone: 06-19-2023 15:13-0400 Diastolic blood pressure 85 mm[Hg] Evelyn L Oberhauser Work Phone: CU-Mlbhzrqvg-Gqerkw 170 Work Phone: 06-19-2023 15:13-0400 Heart rate 83 /min Evelyn Arzolaer Work Phone: YV-Bftblicgc-Vnbdlf 170 Work Phone: 06-19-2023 15:13-0400 Systolic blood pressure 132 mm[Hg] Evelyn Wiseerhauser Work Phone: TF-Ouqpnaxdb-Nterhe 170 Work Phone: 01-17-2023 08:58-0400 Body height 162.56 cm Evelyn Wiseerdevaner Work Phone: DB-Qznrzyqot-Objjunw e B 101 Work Phone: 01-17-2023 08:58-0400 Body mass index (BMI) [Ratio] 35.25 kg/m2 Evelyn Wiseerhauser Work Phone: EQ-Nrasqcfom-Dpmmynr e B 101 Work Phone: 01-17-2023 08:58-0400 Body surface area Derived from formula 1.98 m2 Evelyn Orozcohauser Work Phone: TX-Wkqxnomcc-Tnzbeaa e B 101 Work Phone: 01-17-2023 08:58-0400 Body weight 93.15 kg Evelyn Wiseerdevaner Work Phone: SY-Htniyxeyx-Jhoeepq e B 101 Work Phone: 01-17-2023 08:58-0400 Diastolic blood pressure 74 mm[Hg] Evelyn L Oberhauser Work Phone: RS-Zkzvyqtux-Aeokvqf e B 101 Work Phone: 01-17-2023 08:58-0400 Systolic blood pressure 122 mm[Hg] Evelyn L Oberhauser Work Phone: QN-Wpweiexfp-Vintquz e B 101 Work Phone: 01-04-2023 14:53-0400 Body height 162.56 cm Evelyn L Oberhauser Work Phone: HL-Asbnzrpvx-Kxkxfzs e B 101 Work Phone: 01-04-2023 14:53-0400 Body mass index (BMI) [Ratio] 31.76 kg/m2 Evelyn L Oberhauser Work Phone: MR-Xomvdkyae-Qllylmr e B 101 Work Phone: 01-04-2023 14:53-0400 Body surface area Derived from formula 1.89 m2 Evelyn L Oberhauser Work Phone: KE-Ppdynrkcr-Focedfd e B 101 Work Phone: 01-04-2023 14:53-0400 Body weight 83.92 kg Evelyn L Oberhauser Work Phone: UZ-Tkmjuhxez-Vbabeqi e B 101 Work Phone: 01-04-2023 14:53-0400 Diastolic blood pressure 71 mm[Hg] Evelyn L Oberhauser Work Phone: QP-Nkeoeidcc-Iaezubk e B 101 Work Phone: 01-04-2023 14:53-0400 Heart rate 61 /min Evelyn L Oberhauser Work Phone: AC-Uauqnprav-Idjihyf e B 101 Work Phone: 01-04-2023 14:53-0400 Systolic blood pressure 120 mm[Hg] Evelyn L Oberhauser Work Phone: AE-Xunhwmrkz-Yakwdwb e B 101 Work Phone: 12-06-2022 10:50-0500 Body height 162.56 cm Evelyn L Oberhauser Work Phone: [address] Work Phone: 12-06-2022 10:50-0500 Body mass index (BMI) [Ratio] 34.97 kg/m2 Evelyn L Oberhauser Work Phone: [place] [address] [employer] Work Phone: 12-06-2022 10:50-0500 Body surface area Derived from formula 1.97 m2 Evelyn L Oberhauser Work Phone: [place] [address] [employer] Work Phone: 12-06-2022 10:50-0500 Body weight 92.4 kg Evelyn L Oberhauser Work Phone: [place] [address] [employer] Work Phone: 12-06-2022 10:50-0500 Diastolic blood pressure 64 mm[Hg] Evelyn L Oberhauser Work Phone: [place] [address] [employer] Work Phone: 12-06-2022 10:50-0500 Systolic blood pressure 108 mm[Hg] Evelyn L Oberhauser Work Phone: [place] [address] [employer] Work Phone: 10-10-2022 10:30-0500 Body height 162.56 cm Evelyn L Oberhauser Work Phone: [facility] Work Phone: 10-10-2022 10:30-0500 Body mass index (BMI) [Ratio] 33.82 kg/m2 Evelyn L Oberhauser Work Phone: [facility] Work Phone: 10-10-2022 10:30-0500 Body surface area Derived from formula 1.94 m2 Evelyn L Oberhauser Work Phone: [facility] Work Phone: 10-10-2022 10:30-0500 Body weight 89.36 kg Evelyn L Oberhauser Work Phone: [facility] Work Phone: 10-10-2022 10:30-0500 Diastolic blood pressure 79 mm[Hg] Evelyn L Oberhauser Work Phone: [facility] Work Phone: 10-10-2022 10:30-0500 Heart rate 83 /min Evelyn L Oberhauser Work Phone: [facility] Work Phone: 10-10-2022 10:30-0500 Systolic blood pressure 112 mm[Hg] Evelyn L Oberhauser Work Phone: [facility] Work Phone: 10-02-2022 08:15-0500 Diastolic blood pressure 62 mm[Hg] Evelyn Oberhauser Other Phone: [facility] 10-02-2022 08:15-0500 Heart rate 74 /min Evelyn Oberhauser Other Phone: [facility] 10-02-2022 08:15-0500 Respiratory rate 20 /min Evelyn Oberhauser Other Phone: [facility] 10-02-2022 08:15-0500 SaO2% (BldA) [Mass fraction] 100 % Evelyn Oberhauser Other Phone: [facility] 10-02-2022 08:15-0500 Systolic blood pressure 106 mm[Hg] Evelyn Oberhauser Other Phone: [facility] 10-02-2022 05:26-0500 Body height 162.5 cm Evelyn Oberhauser Other Phone: [facility] 10-02-2022 05:26-0500 Body temperature 98.06 [degF] Evelyn Oberhauser Other Phone: [facility] 10-02-2022 05:26-0500 Body weight 84 kg Evelyn Oberhauser Other Phone: [facility] 08-15-2022 13:12-0500 Body height 162.56 cm Evelyn L Oberhauser Work Phone: VD-Kxvguhcxu-Ijpfsp 170 DO Work Phone: 08-15-2022 13:12-0500 Body mass index (BMI) [Ratio] 33.47 kg/m2 Evelyn L Oberhauser Work Phone: NV-Prabfcgtp-Wfffmo 170 DO Work Phone: 08-15-2022 13:12-0500 Body surface area Derived from formula 1.94 m2 Evelyn L Oberhauser Work Phone: LW-Vvhuszpfo-Njjxdf 170 DO Work Phone: 08-15-2022 13:12-0500 Body temperature 97.5 [degF] Evelyn L Oberhauser Work Phone: VJ-Awukdncab-Huspgb 170 DO Work Phone: 08-15-2022 13:12-0500 Body weight 88.45 kg Evelyn L Oberhauser Work Phone: EH-Exyozfugp-Foutfy 170 DO Work Phone: 08-15-2022 13:12-0500 Diastolic blood pressure 70 mm[Hg] Evelyn L Oberhauser Work Phone: ND-Qhcuwtktb-Sojast 170 DO Work Phone: 08-15-2022 13:12-0500 Heart rate 76 /min Evelyn L Oberhauser Work Phone: AX-Jcekmjzju-Jonfxe 170 DO Work Phone: 08-15-2022 13:12-0500 Respiratory rate 16 /min Evelyn L Oberhauser Work Phone: BD-Kdycqvcyu-Dajcbe 170 DO Work Phone: 08-15-2022 13:12-0500 Systolic blood pressure 101 mm[Hg] Evelyn L Oberhauser Work Phone: PU-Fxkxinoug-Iqsmxd 170 DO Work Phone: 07-19-2022 11:42-0400 Body height 162.56 cm Evelyn L Oberhauser Work Phone: [facility] Work Phone: 07-19-2022 11:42-0400 Body mass index (BMI) [Ratio] 33.52 kg/m2 Evelyn L Oberhauser Work Phone: [facility] Work Phone: 07-19-2022 11:42-0400 Body surface area Derived from formula 1.94 m2 Evelyn L Oberhauser Work Phone: [facility] Work Phone: 07-19-2022 11:42-0400 Body weight 88.59 kg Evelyn L Oberhauser Work Phone: [facility] Work Phone: 07-19-2022 11:42-0400 Diastolic blood pressure 74 mm[Hg] Evelyn L Oberhauser Work Phone: [facility] Work Phone: 07-19-2022 11:42-0400 Heart rate 65 /min Evelyn L Oberhauser Work Phone: [facility] Work Phone: 07-19-2022 11:42-0400 SaO2% (BldA) [Mass fraction] 98 % Evelyn L Oberhauser Work Phone: [facility] Work Phone: 07-19-2022 11:42-0400 Systolic blood pressure 106 mm[Hg] Evelyn L Oberhauser Work Phone: [facility] Work Phone: 06-14-2022 11:20-0400 Body height 162.56 cm Evelyn L Oberhauser Work Phone: [address] Work Phone: 06-14-2022 11:20-0400 Body mass index (BMI) [Ratio] 33.53 kg/m2 Evelyn L Oberhauser Work Phone: [place] [address] [employer] Work Phone: 06-14-2022 11:20-0400 Body surface area Derived from formula 1.94 m2 Evelyn L Oberhauser Work Phone: [place] [address] [employer] Work Phone: 06-14-2022 11:20-0400 Body weight 88.6 kg Evelyn L Oberhauser Work Phone: [place] [address] [employer] Work Phone: 06-14-2022 11:20-0400 Diastolic blood pressure 62 mm[Hg] Evelyn L Oberhauser Work Phone: [place] [address] [employer] Work Phone: 06-14-2022 11:20-0400 Systolic blood pressure 112 mm[Hg] Evelyn L Oberhauser Work Phone: [place] [address] [employer] Work Phone: 05-29-2022 20:00-0400 Diastolic blood pressure 65 mm[Hg] Evelyn Oberhauser Other Phone: [facility] 05-29-2022 20:00-0400 Heart rate 90 /min Evelyn Oberhauser Other Phone: [facility] 05-29-2022 20:00-0400 Respiratory rate 16 /min Evelyn Oberhauser Other Phone: [facility] 05-29-2022 20:00-0400 SaO2% (BldA) [Mass fraction] 100 % Evelyn Oberhauser Other Phone: [facility] 05-29-2022 20:00-0400 Systolic blood pressure 103 mm[Hg] Evelyn Oberhauser Other Phone: [facility] 05-29-2022 17:29-0400 Body temperature 98.78 [degF] Evelyn Oberhauser Other Phone: [facility] 05-29-2022 17:29-0400 Body weight 84 kg Evelyn Oberhauser Other Phone: [facility] 05-17-2022 08:58-0400 Body height 162.56 cm Evelyn L Oberhauser Work Phone: [facility] Work Phone: 05-17-2022 08:58-0400 Body mass index (BMI) [Ratio] 32.79 kg/m2 Evelyn L Oberhauser Work Phone: [facility] Work Phone: 05-17-2022 08:58-0400 Body surface area Derived from formula 1.92 m2 Evelyn L Oberhauser Work Phone: [facility] Work Phone: 05-17-2022 08:58-0400 Body weight 86.64 kg Evelyn L Oberhauser Work Phone: [facility] Work Phone: 05-17-2022 08:58-0400 Diastolic blood pressure 75 mm[Hg] Evelyn L Oberhauser Work Phone: [facility] Work Phone: 05-17-2022 08:58-0400 Heart rate 76 /min Evelyn L Oberhauser Work Phone: [facility] Work Phone: 05-17-2022 08:58-0400 Systolic blood pressure 111 mm[Hg] Evelyn L Oberhauser Work Phone: [facility] Work Phone: 01-17-2022 13:02-0400 Body temperature 97.7 [degF] Evelyn L Oberhauser Work Phone: SU-Rklqedvgd-Fgrcxa 170 DO Work Phone: 01-17-2022 13:02-0400 Diastolic blood pressure 64 mm[Hg] Evelyn L Oberhauser Work Phone: FA-Mqyxvfrwh-Secwml 170 DO Work Phone: 01-17-2022 13:02-0400 Heart rate 79 /min Evelyn L Oberhauser Work Phone: VP-Ahiniufvu-Mqpgpg 170 DO Work Phone: 01-17-2022 13:02-0400 Respiratory rate 16 /min Evelyn L Oberhauser Work Phone: OA-Pjzldughg-Gmgrzu 170 DO Work Phone: 01-17-2022 13:02-0400 Systolic blood pressure 98 mm[Hg] Evelyn L Oberhauser Work Phone: JK-Gtlphzonl-Ajqbwn 170 DO Work Phone: 12-20-2021 13:31-0400 Body height 162.56 cm Evelyn L Oberhauser Work Phone: [facility] Work Phone: 12-20-2021 13:31-0400 Body mass index (BMI) [Ratio] 30.21 kg/m2 Evelyn L Oberhauser Work Phone: [facility] Work Phone: 12-20-2021 13:31-0400 Body surface area Derived from formula 1.85 m2 Evelyn L Oberhauser Work Phone: [facility] Work Phone: 12-20-2021 13:31-0400 Body temperature 98.2 [degF] Evelyn L Oberhauser Work Phone: [facility] Work Phone: 12-20-2021 13:31-0400 Body weight 79.83 kg Evelyn L Oberhauser Work Phone: [facility] Work Phone: 12-20-2021 13:31-0400 Diastolic blood pressure 58 mm[Hg] Evelyn L Oberhauser Work Phone: [facility] Work Phone: 12-20-2021 13:31-0400 Heart rate 87 /min Evelyn L Oberhauser Work Phone: [facility] Work Phone: 12-20-2021 13:31-0400 Systolic blood pressure 114 mm[Hg] Evelyn L Oberhauser Work Phone: [facility] Work Phone: 10-18-2021 10:46-0500 Body height 162.56 cm Evelyn L Oberhauser Work Phone: RB-Etlmedzek-Afairv 170 DO Work Phone: 10-18-2021 10:46-0500 Body mass index (BMI) [Ratio] 30.9 kg/m2 Evelyn L Oberhauser Work Phone: SM-Cwwfflyhx-Vzghce 170 DO Work Phone: 10-18-2021 10:46-0500 Body surface area Derived from formula 1.87 m2 Evelyn L Oberhauser Work Phone: AN-Hxfcqvxfp-Xgckhr 170 DO Work Phone: 10-18-2021 10:46-0500 Body temperature 97.9 [degF] Evelyn L Oberhauser Work Phone: TG-Hzwaczyft-Yrxgby 170 DO Work Phone: 01-12-2022 10:46-0500 Body weight 81.65 kg Evelyn L Oberhauser Work Phone: LR-Dwbnufxsc-Xkyhlh 170 DO Work Phone: 10-18-2021 10:46-0500 Diastolic blood pressure 72 mm[Hg] Evelyn L Oberhauser Work Phone: LO-Bqfqbzomk-Jvlgpr 170 DO Work Phone: 10-18-2021 10:46-0500 Heart rate 79 /min Evelyn L Oberhauser Work Phone: US-Oqihzlxqc-Wjnpix 170 DO Work Phone: 10-18-2021 10:46-0500 Systolic blood pressure 108 mm[Hg] Evelyn L Oberhauser Work Phone: PS-Arlnbjlbl-Htremg 170 DO Work Phone: 08-29-2021 13:37-0500 Body height 162.56 cm Evelyn L Oberhauser Work Phone: [facility] Work Phone: 08-29-2021 13:37-0500 Body mass index (BMI) [Ratio] 30.73 kg/m2 Evelyn L Oberhauser Work Phone: [facility] Work Phone: 08-29-2021 13:37-0500 Body surface area Derived from formula 1.87 m2 Evelyn L Oberhauser Work Phone: [facility] Work Phone: 08-29-2021 13:37-0500 Body temperature 97.5 [degF] Evelyn L Oberhauser Work Phone: [facility] Work Phone: 08-29-2021 13:37-0500 Body weight 81.19 kg Evelyn L Oberhauser Work Phone: [facility] Work Phone: 08-29-2021 13:37-0500 Diastolic blood pressure 73 mm[Hg] Evelyn L Oberhauser Work Phone: [facility] Work Phone: 08-29-2021 13:37-0500 Heart rate 80 /min Evelyn L Oberhauser Work Phone: [facility] Work Phone: 08-29-2021 13:37-0500 Systolic blood pressure 113 mm[Hg] Evelyn L Oberhauser Work Phone: [facility] Work Phone: 05-25-2021 11:51-0400 Body height 162.56 cm Evelyn L Oberhauser Work Phone: [facility] Work Phone: 05-25-2021 11:51-0400 Body mass index (BMI) [Ratio] 31.41 kg/m2 Evelyn L Oberhauser Work Phone: [facility] Work Phone: 05-25-2021 11:51-0400 Body surface area Derived from formula 1.88 m2 Evelyn L Oberhauser Work Phone: [facility] Work Phone: 05-25-2021 11:51-0400 Body temperature 97.8 [degF] Evelyn L Oberhauser Work Phone: [facility] Work Phone: 05-25-2021 11:51-0400 Body weight 83.01 kg Evelyn L Oberhauser Work Phone: [facility] Work Phone: 05-25-2021 11:51-0400 Diastolic blood pressure 82 mm[Hg] Evelyn L Oberhauser Work Phone: [facility] Work Phone: 05-25-2021 11:51-0400 Heart rate 82 /min Evelyn Busch Work Phone: [facility] Work Phone: 05-25-2021 11:51-0400 Systolic blood pressure 127 mm[Hg] Evelyn Busch Work Phone: [facility] Work Phone: 10-26-2020 16:06-0500 BMI (Body Mass Index) 32.27 kg/m2 Evelyn Busch [facility] Work Phone: 10-26-2020 16:06-0500 Body Temperature 96.9 [degF] [facility] Comment on above: Method: Temporal 10-26-2020 16:06-0500 Body weight 85.28 [facility] Work Phone: 10-26-2020 16:06-0500 BP Diastolic 78 mm[Hg] Evelyn Busch [facility] Work Phone: Comment on above: Location: RUE; Position: Sitting 10-26-2020 16:06-0500 BP Systolic 112 mm[Hg] [facility] Work Phone: Comment on above: Location: RUE; Position: Sitting 10-26-2020 16:06-0500 BSA (Body Surface Area) 1.91 m2 [facility] Work Phone: 10-26-2020 16:06-0500 Height 162.56 cm [facility] Work Phone: 10-26-2020 16:06-0500 Pulse (Heart Rate) 83 /min [facility] Work Phone: Comment on above: Location: R Brachial Artery; Quality: Re gracia 07-20-2020 14:13-0400 Body Temperature 97.3 [degF] Ernie [facility] 07-20-2020 13:31-0400 BP Diastolic 70 mm[Hg] [facility] 07-20-2020 13:31-0400 BP Systolic 110 mm[Hg] [facility] 07-20-2020 13:31-0400 Pulse Oximetry 99 % [facility] 07-20-2020 13:31-0400 Respiratory Rate 12 /min [facility] 07-20-2020 12:34-0400 Pulse (Heart Rate) 76 /min [facility] 07-20-2020 08:57-0400 BMI (Body Mass Index) 31.83 kg/m2 [facility] 07-20-2020 08:57-0400 Body weight 84.1 kg [facility] 07-20-2020 08:57-0400 Height 162.6 cm [facility] 03-02-2020 12:30-0400 BMI (Body Mass Index) 31.76 kg/m2 [facility] Work Phone: 03-02-2020 12:30-0400 Body weight 83.92 kg [facility] Work Phone: 03-02-2020 12:30-0400 BSA (Body Surface Area) 1.89 m2 [facility] Work Phone: 03-02-2020 12:30-0400 Height 162.56 cm [facility] Work Phone: 11-25-2019 13:25-0500 Body [facility] 84.94 [facility] Work Phone: 11-25-2019 13:25-0500 BP Diastolic 76 mm[Hg] Evelyn Busch [facility] Work Phone: 11-25-2019 13:25-0500 BP Systolic 116 mm[Hg] [facility] Work Phone: 11-25-2019 13:25-0500 Pulse (Heart Rate) 87 /min [facility] Work Phone: 10-22-2019 12:09-0500 BP Diastolic 63 mm[Hg] Ernie [place] [facility] 10-22-2019 12:09-0500 BP Systolic 101 mm[Hg] Erniezakia Grove [facility] 10-22-2019 12:09-0500 Pulse Oximetry 98 % Erniezakia [place] [facility] 10-22-2019 12:09-0500 Respiratory Rate 16 /min Ernie [place] [facility] 10-22-2019 09:20-0500 Body Temperature 97.5 [degF] Erniezakia [place] [facility] 10-22-2019 09:20-0500 Pulse (Heart Rate) 68 /min Ernie [place] [facility] 10-22-2019 06:01-0500 BMI (Body Mass Index) 31.86 kg/m2 Ernie [place] [facility] 10-22-2019 06:01-0500 Body weight 84.2 kg Ernie [place] [facility] 10-22-2019 06:01-0500 Height 162.6 cm Ernie [place] [facility] 08-27-2019 13:08-0500 BMI (Body Mass Index) 31.24 kg/m2 [facility] 08-27-2019 13:08-0500 Body weight 82.[address] [facility] 08-27-2019 13:08-[address] [facility] 04-29-2019 11:38-0400 BMI (Body Mass Index) 31.07 kg/m2 Italia Mcmillan [facility] 04-29-2019 11:38-0400 Body Temperature 97.2 [degF] Italia [facility] 04-29-2019 11:38-0400 Body weight 82.1 kg [facility] 04-29-2019 11:38-0400 BP Diastolic 55 mm[Hg] [facility] 04-29-2019 11:38-0400 BP Systolic 100 mm[Hg] [facility] 04-29-2019 11:38-0400 Height 162.6 cm [facility] 04-29-2019 11:38-0400 Pulse (Heart Rate) 82 /min [facility] 04-29-2019 11:38-0400 Pulse Oximetry 100 % [facility] 04-29-2019 11:38-0400 Respiratory Rate 16 /min [facility] 03-13-2019 10:21-0400 BMI (Body Mass Index) 31.07 kg/m2 [facility] 03-13-2019 10:21-0400 Body Temperature 97.7 [degF] [facility] 03-13-2019 10:21-0400 Body weight 82.1 kg [facility] 03-13-2019 10:21-0400 BP Diastolic 56 mm[Hg] [facility] 03-13-2019 10:21-0400 BP Systolic 114 mm[Hg] [facility] 03-13-2019 10:21-0400 Height 162.6 cm [facility] 03-13-2019 10:21-0400 Pulse (Heart Rate) 90 /min [facility] 03-13-2019 10:21-0400 Pulse Oximetry 100 % [facility] 03-13-2019 10:21-0400 Respiratory Rate 16 /min [facility] 02-24-2018 08:54-0400 BMI (Body Mass Index) 28.32 kg/m2 Ernie [place] [facility] 02-24-2018 08:54-0400 Height 162.6 cm Ernie [place] [facility] 02-24-2018 08:54-0400 Weight 74.84 kg Ernie [place] [facility] 12-30-2017 14:27-0400 BMI (Body Mass Index) 28.32 kg/m2 Ernie [place] [facility] 12-30-2017 14:-0 Height 162.6 cm Ernie [place] [facility] 12-30-2017 14:27-0400 Weight 74.84 kg Ernie [place] [facility] Encounters Encounter Date Encounter Type Care Provider Facility Start: 08-16-2025 End: 08-16-2025 ambulatory KEN BOUCHER Facility:[facility] Start: 08-13-2025 End: 08-14-2025 ambulatory Evelyn Busch Facility:[facility] Start: 08-13-2025 End: 08-13-2025 ambulatory NELI VALENCIA Facility:[facility] Start: 08-06-2025 End: 08-06-2025 ambulatory SHAQUILLE LAZAR Facility:[facility] Start: 07-28-2025 End: 07-28-2025 ambulatory MARY STILL Facility:[facility] Start: 07-23-2025 End: 07-23-2025 ambulatory LORRAINE ROLDAN Facility:[facility] Start: 07-19-2025 End: 07-19-2025 ambulatory SHAQUILLE LAZAR Facility:[facility] Start: 07-09-2025 End: 07-09-2025 ambulatory TAYLOR WOOTEN Facility:[facility] Start: 07-09-2025 End: 07-09-2025 ambulatory MILTON MIRANDA Facility:[facility] Start: 06-25-2025 End: 06-25-2025 ambulatory JOY DENNISON Facility:[facility] Start: 06-25-2025 End: 06-25-2025 ambulatory LORRAINE ROLDAN Facility:[facility] Start: 06-24-2025 End: 06-24-2025 ambulatory CHRISSIE AGUILERA Facility:[facility] Start: 06-21-2025 End: 06-21-2025 Telephone encounter Neli Valencia MD Work Phone: OB/Gynecology Comment on above: Gestational Diabetes (/) Start: 06-19-2025 End: 06-19-2025 ambulatory NELI VALENCIA Facility:[facility] Start: 06-17-2025 End: 06-17-2025 ambulatory Lorraine Roldan [...] immunization; Penicillin allergy Start: 06-11-2025 End: 06-11-2025 ambulatory CHRISSIE AGUILERA Facility:[facility] Start: 06-04-2025 End: 06-04-2025 Patient encounter procedure Taylor Wooten APRN.CHIEF PHARMACIST Work Phone: Allergy Comment on above: Adverse effect of pe nicillin, initial encounter (Primary Dx); Adverse effect of cephalosporin, initial encounter; 27 weeks gestation of (HCC) Start: 06-04-2025 End: 06-04-2025 ambulatory TAYLOR WOOTEN Facility:[facility] Start: 05-14-2025 End: 05-14-2025 [facility] Facility:[facility] Start: 04-16-2025 End: 04-16-2025 Patient encounter procedure Whi Tech 1 Head Counselor [facility] Comment on above: Obesity in (HCC) (Primary Dx); with uncertain dates, antepartum (HCC); Low-lying placenta without hemorrhage, second trimester (HCC) 20 weeks gestation o f (HCC) (Primary Dx); Supervision of high risk , antepartum (HCC); Obesity in (HCC); Postural orthostatic tachycardia syndrome; Low lying placenta, antepartum (HCC) Start: 04-16-2025 End: 04-16-2025 ambulatory LORRAINE ROLDAN Facility:[facility] Start: 03-24-2025 End: 05-24-2025 Follow-up encounter Neli Valencia MD Work Phone: OB/Gynecology Start: 03-23-2025 End: 03-23-2025 Emergency department patient visit Kai Vera DO Work Phone: [facility] Emergency Medicine Comment on above: Acute nonintractable [...] Start: 03-19-2025 End: 03-19-2025 ambulatory LORRAINE ROLDAN Facility:[facility] Start: 03-05-2025 End: 03-05-2025 ambulatory LORRAINE LINCOLN Facility:[facility] Start: 03-03-2025 End: 03-03-2025 Patient encounter procedure Chrissie Aguilera APRN.CNP Work Phone: OB/Gynecology Comment on above: Supervision of high risk , antepartum (HCC) (Primary Dx); 13 weeks gestation of (HCC); Obesity in (HCC); Penicillin allergy Encounter for antena hermelindo screening for malformation using ultrasound ([facility]) (Primary Dx); 13 weeks gestation of (HCC); Encounter for (NT) nuchal translucency scan ([facility]) Start: 03-03-2025 End: 03-03-2025 [facility] LORRAINE ROLDAN Facility:[facility] Start: 02-01-2025 End: 03-09-2025 Follow-up encounter Lorraine Roldan APRN.CNM Work Phone: OB/Gynecology Start: 01-29-2025 End: 01-29-2025 ambulatory LORRAINE ROLDAN Facility:[facility] Start: 12-30-2024 ambulatory EVELYN BUCSH [facility] Start: 12-30-2024 End: 12-30-2024 Office outpatient visit 25 minutes Evelyn Busch DO Work Phone: [facility] Internal Medicine Comment on above: 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 (Primary Dx); Intractable migraine without aura and without status migrainosus; Migraine without aura and without status migrainosus, not intractable; Obesity: body mass index of 35.0-39.9 Start: 11-20-2024 End: 11-20-2024 ambulatory ALBA ROSA Facility:[facility] Start: 11-20-2024 End: 11-20-2024 Patient encounter procedure Alba Rosa MERCHANDISING TEAM LEAD.CHIEF PHARMACIST Work Phone: OB/Gynecology Comment on above: Encounter for gyneco logical examination (general) (routine) without abnormal findings (Primary Dx); Irregular menstrual cycle Start: 11-20-2024 End: 11-20-2024 Patient encounter status Alba Rosa MERCHANDISING TEAM LEAD.CHIEF PHARMACIST Work Phone: [facility] Start: 10-23-2024 End: 10-23-2024 ambulatory [facility] Start: 10-23-2024 End: 10-23-2024 Office outpatient visit 25 minutes Tammy Simeon MERCHANDISING TEAM LEAD-CHIEF PHARMACIST Work Phone: [facility] Comment on above: Chronic migraine wit h aura without status migrainosus, not intractable (Primary Dx); POTS (postural orthostatic tachycardia syndrome); Chronic migraine without aura without status migrainosus, not intractable Start: 10-23-2024 End: 10-23-2024 ambulatory [facility] Start: 04-17-2024 End: 04-17-2024 Office outpatient visit 25 minutes Tammy Simeon MERCHANDISING TEAM LEAD-CHIEF PHARMACIST Work Phone: [facility] Comment on above: Chronic migraine wit h aura without status migrainosus, not intractable (Primary Dx); POTS (postural orthostatic tachycardia syndrome); Chronic migraine without aura without status migrainosus, not intractable Start: 04-17-2024 End: 04-17-2024 ambulatory [facility] Ambulatory Start: 03-11-2024 End: 03-11-2024 Subsequent hospital visit by physician Paul X-Ray 1 [facility] Comment on above: Arthralgia, unspecif ied joint Start: 03-11-2024 End: 03-11-2024 ambulatory [facility] Start: 03-10-2024 End: 03-10-2024 ambulatory GHULAM Treviño [facility] Ambulatory Start: 03-10-2024 End: 03-10-2024 Office outpatient new 45 minutes Ghulam Renteria MD Work Phone: [facility] Comment on above: Arthralgia, unspecif ied joint (Primary Dx) Start: 02-26-2024 End: 02-26-2024 Patient encounter procedure Sanya Arana PA-C Work Phone: [facility] Comment on above: Acute rhinosinusitis (Primary Dx) Start: 01-09-2024 End: 01-09-2024 Office outpatient visit 25 minutes Tammy Simeon APRN-CHIEF PHARMACIST Work Phone: [facility] Comment on above: Chronic migraine wit h aura without status migrainosus, not intractable (Primary Dx); Cervico-occipital neuralgia; POTS (postural orthostatic tachycardia syndrome); Chronic migraine without aura without status migrainosus, not intractable; Arthralgia, unspecified joint Start: 01-09-2024 End: 01-09-2024 ambulatory TAMMY J [facility] Ambulatory Start: 12-27-2023 End: 12-27-2023 Subsequent hospital visit by physician Paul Samuels-Ray 1 [facility] Comment on above: Left foot pain Start: 10-10-2023 End: 10-10-2023 Postop follow up visit related to original px Evelyn Del Rio MD Work Phone: [facility] Comment on above: Postoperative visit (Primary Dx) Start: 10-02-2023 End: 10-02-2023 Office outpatient visit 25 minutes Gus Bradley PA-C Work Phone: [facility] Comment on above: Urticaria (Primary D x); Allergic contact dermatitis due to adhesives Start: 09-25-2023 End: 09-25-2023 Subsequent hospital visit by physician Evelyn Del Rio MD Work Phone: [facility] OR Comment on above: Post-operative pain (Primary Dx); Biliary dyskinesia Start: 09-05-2023 End: 09-05-2023 Office consultation new/estab patient 60 min Evelyn Del Rio MD Work Phone: [facility] Comment on above: RUQ abdominal pain; Epigastric pain Start: 08-09-2023 End: 08-09-2023 Subsequent hospital visit by physician Paul Gutiérrez 1 [facility] Comment on above: RUQ abdominal pain; Epigastric pain; Nausea Start: 08-06-2023 End: 08-06-2023 Office outpatient visit 25 minutes Gus Bradley PA-C Work Phone: [facility] Comment on above: RUQ abdominal pain ( Primary Dx); Epigastric pain; Nausea Start: 08-02-2023 End: 08-02-2023 Subsequent hospital visit by physician Paul Frances 1 [facility] Comment on above: RUQ abdominal pain Start: 07-06-2023 End: 07-06-2023 ambulatory Memo Quigley Other [employer] Other Start: 07-06-2023 Office outpatient ne w 20 minutes Memo Quigley [facility] Start: 07-05-2023 Current tobacco non- user cad cap copd pv dm Evelyn Busch Work Phone: DS-Tagcnmsow-Rkokkkfe B 101 DO Work Phone: Start: 07-05-2023 ambulatory Ms. Tammy Simeon Faci lity:[id number] Start: 06-19-2023 Office outpatient vi sit 15 minutes Evelyn Busch Work Phone: [id number]-Ivuatjzcp-Sdxfoj 170 Work Phone: Start: 06-19-[address] Evelyn Busch Facility:[id number] Start: 05-13-2023 End: 05-13-2023 ambulatory [facility] Start: 03-20-2023 AUDIT Evelyn Adamson user Work Phone: OG-Ocpxiikdf-Msbpqwtl B 101 Work Phone: Start: 01-31-2023 Chart Update Evelyn Adamson user Work Phone: [address] Work Phone: Start: 01-29-2023 AUDIT Evelyn Adamson user Work Phone: KS-Noeffasny-Xpgxtzwg B 101 Work Phone: Start: 01-18-2023 Encounter for gynecological examination (general) (routine) without abnormal findings Ms. Nancy Ross [facility] Start: 01-17-2023 Encounter for gynecological examination (general) (routine) without abnormal findings Dr. Evelyn Busch Facility:[facility] Start: 01-17-[address] Evelyn Busch Facility:[facility] Start: 01-07-2023 Chart Update Evelyn Adamson user Work Phone: IF-Chzgkkvfm-Zwxcoijg B 101 Work Phone: Start: 01-04-2023 Current tobacco non- user cad cap copd pv dm Evelyn Busch Work Phone: CI-Snqwpmoin-Affwldqs B 101 Work Phone: Start: 01-04-2023 ambulatory Ms. Tammy Simeon Faci lity:[id number] Start: 12-06-2022 Office outpatient vi sit 15 minutes Evelyn Busch Work Phone: [address] Work Phone: Start: 12-06-[address] Evelyn Busch Facility:[id number] Start: 11-19-2022 Office outpatient ne w 45 minutes Evelyn Busch Work Phone: AJ-Xrhmctitt-Mxezddfl B [address] Work Phone: Start: 11-19-2022 ambulatory Ms. Tammy Simeon Faci lity:[id number] Start: 10-25-2022 Chart Update Evelyn Adamson user Work Phone: [facility] Work Phone: Start: 10-25-[address] Evelyn Busch Facility:[id number] Start: 10-18-2022 Chart Update Evelyn Adamson user Work Phone: [facility] Work Phone: Start: 10-18-[address] Evelyn Busch Facility:[id number] Start: 10-12-2022 AUTONOMIC, Provider: DOTTIE-BEATRICE 5,NEURODIAG, Status: Pen, Time: 1:00 PM Evelyn Busch Work Phone: [facility] Work Phone: Start: 10-12-[address] Evelyn Busch Facility:[facility] Start: 10-10-[address] Evelyn Busch Facility:[id number] Start: 10-10-2022 Office outpatient vi sit 25 minutes Evelyn Busch Work Phone: [facility] Work Phone: Start: 10-02-2022 End: 10-02-2022 Emergency department patient visit Fili Briggs [facility] Emergency 14 Start: 09-17-2022 Patient encounter procedure Evelyn Busch Work Phone: [address] Work Phone: Start: 09-17-2022 ambulatory DONNA ARIAS Facility:[id number] Start: 08-15-2022 Office outpatient vi sit 25 minutes Evelyn Busch Work Phone: CM-Qscmagvgk-Kuqcdo 170 DO Work Phone: Start: 08-15-[address] Evelyn Busch Facility:[id number] Start: 07-26-2022 ambulatory TOBIAS Medel y:[id number] Start: 07-19-2022 Office outpatient ne w 45 minutes Evelyn Busch Work Phone: [facility] Work Phone: Start: 07-19-[address] Evelyn Busch Facility:[id number] Start: 06-25-2022 Patient encounter procedure Evelyn Busch Work Phone: [facility] Work Phone: Start: 06-14-2022 Initial preventive medicine new pt age 18-39yrs Evelyn Busch Work Phone: [place] [address] [employer] Work Phone: Start: 06-14-2022 NPV, Provider: Nancy Ross, Status: Pen, Time: 11:15 AM Evelyn Busch Work Phone: [facility] Work Phone: Start: 06-12-[address] Evelyn Busch Facility:[id number] Start: 06-12-2022 Patient encounter procedure Evelyn Busch Work Phone: [facility] Work Phone: Start: 06-07-[address] Evelyn Busch Facility:[id number] Start: 05-30-2022 Patient encounter procedure Shari Tammie Muniz [facility] Rehab Start: 05-30-[address] Evelyn Busch Facility:[id number] Start: 05-29-2022 End: 05-29-2022 Emergency department patient visit Chuck Thorpe [facility] Emergency Start: 05-23-[address] Evelyn Busch Facility:[id number] Start: 05-18-[address] Evelyn Busch Facility:[id number] Start: 05-18-2022 EVENT GONZALO, Provider : THEO DIAGNOSTIC THERAPISTSWAPNA, Status: Pen, Time: 9:30 AM Evelyn Busch Work Phone: [facility] Work Phone: Start: 05-18-2022 Patient encounter procedure Evelyn Busch Work Phone: [facility] Work Phone: Start: 05-17-2022 Office outpatient vi sit 25 minutes Evelyn Arzolaer Work Phone: [facility] Work Phone: Start: 05-15-[address] Evelyn Busch Facility:[id number] Start: 05-11-2022 Patient encounter procedure [facility]rozcohauser Work Phone[facility] Work Phone: Start: 05-11-[address] Evelyn Busch Facility:[id number] Start: 04-18-2022 Office outpatient vi sit 25 minutes Evelyn Arzolaer Work Phone: ID-Tefsdazvq-Wkqyep 170 DO Work Phone: Start: 02-14-2022 Patient encounter procedure Evelyn Longo Oberhauser Work Phone: QK-Xfmqhwlvt-Lvpbiq 170 DO Work Phone: Start: 01-17-2022 Patient encounter procedure Evelyn Orozcohauser Work Phone: GN-Fuuyejjdh-Sepqlf 170 DO Work Phone: Start: 01-02-2022 Image Encounter Evelyn Qing Wiseerha user Work Phone: zz DO NOT USE - [employer] Only Start: 12-20-2021 Office outpatient vi sit 15 minutes Evelyn Orozcohauser Work Phone: [facility] Work Phone: Start: 11-01-2021 AUDIT Evelyn Qing Wiseerha user Work Phone: IF-Errqrauzg-Zkuxnh 170 DO Work Phone: Start: 10-18-2021 Office consultation new/estab patient 80 min Evelyn Qing Oberhauser Work Phone: [facility] 170 DO Work Phone: Start: 09-20-2021 Chart Update Evelyn Longo Oberha user Work Phone: [facility] Work Phone: Start: 08-29-2021 Current tobacco non- user cad cap copd pv dm Evelyn L Oberhauser Work Phone: [facility] Work Phone: Start: 08-29-2021 Office outpatient vi sit 25 minutes Evelyn Longo Oberhauser Work Phone: [facility] Work Phone: Start: 07-06-2021 AUDIT Evelyn L Oberha user Work Phone: [facility] Work Phone: Start: 06-28-2021 AUDIT Evelyn L Oberha user Work Phone: [facility] Work Phone: Start: 06-06-2021 AUDIT Evelyn L Oberha user Work Phone: [facility] Work Phone: Start: 04-11-2021 AUDIT Evelyn L Oberha user Work Phone: [facility] Work Phone: Start: 02-14-2021 ambulatory [facility] Ambulatory Start: 01-26-2021 Patient encounter procedure Evelyn Oberhauser DO [facility] Work Phone: Start: 01-16-2021 Patient encounter procedure Evelyn Oberhauser DO [facility] Work Phone: Start: 01-02-2021 Patient encounter procedure Evelyn Oberhauser DO [facility] Work Phone: Start: 12-27-2020 Patient encounter procedure Evelyn Oberhauser DO [facility] Work Phone: Start: 12-22-2020 Patient encounter procedure Evelyn Oberhauser DO [facility] Work Phone: Start: 12-19-2020 Patient encounter procedure Evelyn Oberhauser DO [facility] Work Phone: Start: 12-05-2020 Patient encounter procedure Evelyn Oberhauser DO [facility] Work Phone: Start: 11-23-2020 Patient encounter procedure Evelyn Oberhauser DO [facility] Work Phone: Start: 11-16-2020 Patient encounter procedure Evelyn Busch [facility] Work Phone: Start: 11-09-2020 Patient encounter procedure Evelyn Busch [facility] Work Phone: Start: 11-02-2020 Patient encounter procedure Evelyn Busch [facility] Work Phone: Start: 10-31-2020 ambulatory [facility] Start: 10-28-2020 Patient encounter procedure Evelyn Busch [facility] Work Phone: Start: 10-26-2020 Patient encounter procedure Evelyn Busch [facility] Work Phone: Start: 10-20-2020 Patient encounter procedure Evelyn Obovidio [facility] Work Phone: Start: 10-19-2020 Patient encounter procedure Evelyn Obovidio [facility] Work Phone: Start: 10-14-2020 Patient encounter procedure Evelyn Busch [facility] Work Phone: Start: 10-12-2020 Patient encounter procedure Evelyn Busch [facility] Work Phone: Start: 09-12-2020 Patient encounter procedure Evelyn Busch [facility] Work Phone: Start: 09-09-2020 End: 09-09-2020 ambulatory ERNIE GROVE [facility] Ambulatory Start: 09-09-2020 End: 09-09-2020 Postop follow up visit related to original px Ernie Grove Work Phone: [facility] Comment on above: S/P left knee arthro scopy (Primary Dx) Start: 09-09-2020 Patient encounter procedure Evelyn Busch [facility] Work Phone: Start: 09-07-2020 Patient encounter procedure Evelyn Busch [facility] Work Phone: Start: 08-31-2020 Patient encounter procedure Evelyn Busch [facility] Work Phone: Start: 08-29-2020 Patient encounter procedure Evelyn Busch [facility] Work Phone: Start: 08-25-2020 Patient encounter procedure Evelyn Busch [facility] Work Phone: Start: 08-18-2020 Patient encounter procedure Evelyn Busch [facility] Work Phone: Start: 08-16-2020 Patient encounter procedure Evelyn Busch [facility] Work Phone: Start: 08-12-2020 Patient encounter procedure Evelyn Busch [facility] Work Phone: Start: 08-09-2020 Patient encounter procedure Evelyn Busch [facility] Work Phone: Start: 08-05-2020 End: 08-05-2020 ambulatory ERNIE GROVE [facility] Ambulatory Start: 08-05-2020 End: 08-05-2020 Postop follow up visit related to original px Ernie Grove Work Phone: [facility] Comment on above: Patellofemoral pain syndrome of left knee (Primary Dx) Start: 07-20-2020 End: 07-20-2020 Subsequent hospital visit by physician Ernie Grove Work Phone: [facility] Comment on above: S/P arthroscopy of l eft knee (Primary Dx); Patellofemoral pain syndrome of left knee Start: 07-18-2020 End: 07-18-2020 Patient encounter procedure [facility] Start: 06-05-2020 End: 06-05-2020 Patient encounter procedure ERNIE COLE MAINE [facility] Start: 05-27-2020 End: 05-27-2020 ambulatory ERNIE GROVE [facility] Ambulatory Start: 05-06-2020 End: 05-10-2020 ambulatory ERNIE THOMPSON [facility] Ambulatory Start: 03-02-2020 Patient encounter procedure [facility] Work Phone: Start: 02-18-2020 ambulatory ERNIE GROVE [facility] Ambulatory Start: 01-18-2020 End: 01-18-2020 Postop follow up visit related to original px Ernie Grove Work Phone: [facility] Comment on above: Patellofemoral disor faith of left knee (Primary Dx) Start: 01-15-2020 Patient encounter procedure [facility] Work Phone: Start: 01-14-2020 [facility] Start: 01-13-2020 [facility]: Start: 01-11-2020 [facility]: Start: 01-08-2020 Patient encounter procedure Evelyn Busch [facility] Work Phone: Start: 01-06-2020 Patient encounter procedure Evelyn Busch [facility] Work Phone: Start: 01-04-2020 Patient encounter procedure Evelyn Busch [facility] Work Phone: Start: 01-01-2020 Patient encounter procedure Evelyn Busch [facility] Work Phone: Start: 12-30-2019 Patient encounter procedure Evelyn Busch [facility] Work Phone: Start: 12-28-2019 Patient encounter procedure Eveyln Busch [facility] Work Phone: Start: 12-25-2019 Patient encounter procedure Evelyn Busch [facility] Work Phone: Start: 12-23-2019 Patient encounter procedure Evelyn Busch [facility] Work Phone: Start: 12-21-2019 Patient encounter procedure Evelyn Busch [facility] Work Phone: Start: 12-15-2019 Patient encounter procedure Evelyn Busch [facility] Work Phone: Start: 12-14-2019 Patient encounter procedure Evelyn Busch [facility] Work Phone: Start: 12-11-2019 Patient encounter procedure Evelyn Busch [facility] Work Phone: Start: 12-09-2019 Patient encounter procedure Evelyn Busch [facility] Work Phone: Start: 12-08-2019 Patient encounter procedure Evelyn Busch [facility] Work Phone: Start: 12-07-2019 End: 12-07-2019 Postop follow up visit related to original px Ernie Grove Work Phone: [facility] Comment on above: Patellofemoral disor faith of left knee (Primary Dx) Start: 12-04-2019 Patient encounter procedure Evelyn Busch [facility] Work Phone: Start: 12-02-2019 Patient encounter procedure Evelyn Busch [facility] Work Phone: Start: 11-30-2019 Patient encounter procedure Evelyn Busch [facility] Work Phone: Start: 11-27-2019 Patient encounter procedure Evelyn Busch [facility] Work Phone: Start: 11-26-2019 Patient encounter procedure Evelyn Busch [facility] Work Phone: Start: 11-25-2019 Patient encounter procedure Evelyn Busch [facility] Work Phone: Start: 11-24-2019 Patient encounter procedure Evelyn Busch [facility] Work Phone: Start: 11-20-2019 Patient encounter procedure Evelyn Busch [facility] Work Phone: Start: 11-13-2019 Patient encounter procedure Evelyn Busch [facility] Work Phone: Start: 11-12-2019 Patient encounter procedure Evelyn Busch [facility] Work Phone: Start: 11-10-2019 Patient encounter procedure Evelyn Busch [facility] Work Phone: Start: 11-09-2019 End: 11-09-2019 Postop follow up visit related to original px Ernie Grove Work Phone: [facility] Comment on above: Patellofemoral disor faith of left knee (Primary Dx) Start: 10-22-2019 End: 10-22-2019 Subsequent hospital visit by physician Ernie Grove Work Phone: [facility] Comment on above: S/P arthroscopic sophia isabela of left knee (Primary Dx); Patellofemoral pain syndrome of left knee; Patellofemoral pain syndrome of left knee Start: 10-14-2019 Patient encounter procedure Evelyn Busch [facility] Work Phone: Start: 09-23-2019 Patient encounter procedure [facility] Work Phone: Start: 08-27-2019 End: 08-27-2019 Office outpatient visit 25 minutes Aida Idania Natasha Work Phone: [facility] Comment on above: Patellofemoral pain syndrome of left knee (Primary Dx) Start: 08-21-2019 Patient [facility] Work Phone: Start: 08-12-2019 Patient encounter procedure Evelyn Busch [facility] Work Phone: Start: 04-29-2019 End: 04-29-2019 Office outpatient visit 25 minutes Italia Mcmillan Work Phone: [facility] [place] Comment on above: NDPH (new daily pers istent headache) (Primary Dx); Intractable migraine without aura and without status migrainosus Start: 04-22-2019 End: 04-22-2019 Subsequent hospital visit by physician Tate Cesar Work Phone: [facility] [place] Start: 04-02-2019 End: 04-02-2019 Outside Orders Italia Mcmillan Work Phone: [facility] Start: 03-20-2019 End: 03-20-2019 Patient encounter procedure Historical Provider Lia Bautistaion Start: 03-13-2019 End: 03-13-2019 Letter encounter Provider Jai Santos [facility] Start: 03-13-2019 End: 03-13-2019 Office outpatient new 30 minutes Italia Mcmillan Work Phone: [facility] Comment on above: Muscle weakness (gen eralized) (Primary Dx); Numbness and tingling in both hands; Worst headache of life; Bilateral occipital neuralgia; NDPH (new daily persistent headache) Start: 02-24-2018 End: 02-24-2018 Office/outpatient visit, [facility], level 2 Ernie Grove Work Phone: [facility] Start: 01-10-2018 Ambulatory Belen [facility] [place] [facility] Start: 12-30-2017 Office/outpatient vi sit, new, level 2 Ernie Grove Work Phone: [facility] Phys[facility] Encounter for gynecological examination (general) (routine) without abnormal findings Evelyn Busch Work Phone: WG-Mwfkzyhrn-Dvztacng B 101 Work Phone: Comment on above: 02/01/23 NORMAL; Patient encounter status Evelyn Busch Work Phone: JB-Ajfcrfkra-Sqtfuhnw B 101 Work Phone: Procedures Date Procedure Procedure Detail Performing Clinician Start: 06-04-2025 ALLERGEN SKIN TEST-PENICILLIN Taylor Wooten MERCHANDISING TEAM LEAD.CHIEF PHARMACIST Work Phone: Start: 04-16-2025 Us preg uterus after 1st trimest 1/ gestation Lorraine Roldan APRN.CNM Work Phone: Start: 03-23-2025 Urinalysis microscop ic panel - Urine Qualitative by Automated Kai Vera DO Work Phone: Start: 03-23-2025 Urnls dip stick/tabl et reagent auto microscopy Kai D Lemvalentina DO Work Phone: Start: 03-23-2025 Comprehensive metabolic panel Kai Chatmanvalentina DO Work Phone: Start: 03-05-2025 Antibody screen CHRISSIE LANCASTER Comment on above: Order Comment: Speci men Type: BLOOD SPECIMENOrdering Facility: [facility] Address: [address] [place] [address] Performed By: #### T SPN ####CC MAIN BLOOD BANKCLIA [id number] [facility] [id number] [place] [address] [place] Start: 03-03-2025 Us preg uterus after 1st trimest 10/07 gestation Lorraine Roldan APRN.CNM Work Phone: Start: 09-25-2023 PULSE OXIMETRY, CONTINUOUS Lv Henley MD Work Phone: Start: 09-25-2023 Urine test visual color cmprsn meths Lv Henley MD Work Phone: Start: 09-25-2023 PULSE OXIMETRY, SPOT Me corrina Del Rio MD Work Phone: Start: 08-09-2023 Us abdominal real ti me w/image documentation Gus SHARMAC Work Phone: Start: 08-02-2023 Hepatobil syst imag inc gb w/pharma intervenj Evelyn Busch DO Work Phone: Start: 01-17-2023 Microscopic observat ion [Identifier] in Cervix by Cyto stain Gus GUERRERO-C Work Phone: Start: 07-26-2022 Echocardiography Evelyn Busch Work Phone: Start: 07-26-2022 Lipid 1996 panel - S negro or Plasma Gsu GUERRERO-C Work Phone: Start: 05-29-2022 End: 05-29-2022 EKG impression Chuck Thorpe Start: 11-05-2020 Holter Monitor 3-14 Days Evelyn Ernestodevantashia Start: 10-26-2020 AMIE-WITHOUT REFLEX TO CLEO Evelyn Ernestodevantashia Start: 10-26-2020 Extractable nuclear antigen antibody any method Evelyn Ernestodevantashia Start: 10-26-2020 TSH WITH REFLEX TO F REE T4 IF ABNORMAL Evelyn Ernestodevantashia Start: 03-02-2020 Endoscopy - Upper GI corrina Busch Start: 10-22-2019 Radiologic examinati on knee 1/2 views Ernie Grove Work Phone: Start: 10-22-2019 Choriogonadotropin ( test) [Presence] in Urine Jose Eduardo Danielsjacklyn Work Phone: Start: 04-22-2019 GENERAL PROCEDURE Tate Cesar Work Phone: Start: 04-22-2019 EMG AND NERVE CONDUC TION (SCANNED) Italia Mcmillan Work Phone: Start: 03-30-2019 MRI BRAIN, MRA BRAIN (OUTSIDE IMAGE) Italia Mcmillan Work Phone: Start: 03-30-2019 MRI of cervical spine M jeanette Chidi Hipolito Work Phone: Start: 03-13-2019 Sedimentation rate r bc automated Historical Provider Colonoscopy Evelyn manzo Operative procedure on knee Evelyn Longo Narayan Work Phone: Comment on above: ; Left knee 2019; Plan of Treatment Date Care Activity Detail Author Start: 2070 RSV High Risk: (Elde rly (60+) or Population) (1 - 1-dose 75+ series) RSV High Risk: (Elderly (60+) or Population) (1 - 1-dose 75+ series) [facility] Start: 2045 Zoster Vaccines (1 of 2) Zoste r Vaccines (1 of 2) [facility] Start: 06-11-2035 Urine microalbumin profile DTa P,Tdap,Td Vaccine (5 - Td or Tdap) [facility] Start: 07-26-2027 Lipid panel Lipid Panel [facility] Start: 03-05-2026 Diabetes mellitus screening Diabetes Screening [facility] Start: 01-17-2026 Screening for malign ant neoplasm of cervix [facility] Start: 11-26-2025 End: 11-26-2025 Patient encounter procedure 11/26/2025 9:00 AM EST Office Visit OB/Gynecology [address] [place] [address] Alba Rosa APRN.CHIEF PHARMACIST [address] [place] [address] ANNUAL OB/Gynecology Comment on above: ANNUAL Start: 10-21-2025 End: 10-21-2025 Patient encounter procedure 10/21/2025 8:30 AM EST Office Visit [facility] [address] [place] [phone] Tammy Simeon, MERCHANDISING TEAM LEAD-CHIEF PHARMACIST [address] [place] [address] [facility] Start: 09-03-2025 ambulatory Ambulatory Facility:[facility] Start: 08-27-2025 End: 08-27-2025 Patient encounter procedure [...] RSV Vaccine (1 - Risk 1-dose series) [facility] Start: 07-09-2025 End: 07-09-2025 Patient encounter procedure OB/Gynecology Comment on above: OB PENICILLIN ORAL CHAL LENGE Start: 06-25-2025 End: 06-25-2025 Diabetic care education 06/25/2025 12:00 PM EDT [facility] [address] [place] [address] Joy Dennison, RD [address] [place] [address] Gestational diabetes Diabetes Education Comment on above: Gestational diabetes Start: 06-25-2025 End: 06-25-2025 Patient encounter procedure Maternal Medicine Comment on above: Encounter for superv ision of high risk in second trimester, antepartum (HCC) [O09.92] OB Start: 06-22-2025 End: 06-22-2025 Nursing evaluation of patient and report 06/22/2025 8:00 AM EDT Nurse Visit Diabetic Education [facility] [address] [place] [address] Bre Zamora RN Gestational diabetes Diabetic Education [facility] Comment on above: Gestational diabetes Start: 06-19-2025 End: 06-19-2025 ambulatory 06/19/2025 8:00 AM EDT Results Only [facility] Station [address] [place] [address] Request: GEST GLUC ROBERT, 3-HR, 100 GM, [facility]ING [facility] Comment on above: Request: GEST GLUC T OL, 3-HR, 100 GM, FASTING Start: 06-11-2025 End: 06-11-2025 Patient encounter procedure 06/11/2025 8:00 AM EDT Routine Office Visit OB/Gynecology [address] [place] [address] Lorraine Roldan APRN.CN [address] [place] [address] OB OB/Gynecology Comment on above: OB Start: 06-07-2025 Influenza vaccination Influenza Vacc ine (#1) [facility] Start: 06-04-2025 End: 06-04-2025 Patient encounter procedure 06/04/2025 8:30 AM EDT Office Visit Allergy [address] [place] [address] Taylor Wooten, MERCHANDISING TEAM LEAD.CHIEF PHARMACIST [address] [place] [address] PCN allergy during Allergy Comment on above: PCN allergy during p regnancy Start: 05-14-2025 End: 05-14-2025 Patient encounter procedure 05/14/2025 8:45 AM EDT Routine Office Visit OB/Gynecology [address] [place] [address] Chrissie Aguilera, MERCHANDISING TEAM LEAD.CHIEF PHARMACIST [address] [place] [address] OB OB/Gynecology Comment on above: OB Start: 05-07-2025 End: 05-07-2025 Patient encounter procedure 05/07/2025 8:15 AM EDT Office Visit Allergy [address] [place] [phone] Verena Barone MD [address] [place] [address] Allergy during Allergy Comment on above: Allergy during pregn jesenia Start: 04-16-2025 End: 04-16-2025 Patient encounter procedure Maternal Medicine Comment on above: Anatomy Scan OB Routine Start: 03-31-2025 End: 03-31-2025 Patient encounter procedure 03/31/2025 8:00 AM EDT Office Visit [facility] [address] [place] [address] Evelyn Busch DO [address] [place] [address] [facility] Start: 03-19-2025 End: 06-18-2025 Chromosome 21 trisomy [Presence] in Blood or Tissue by Cytogenetics [facility] Work Phone: Comment on above: Expected: 03/19/2025 , Expires: 06/18/2025 Start: 03-19-2025 End: 06-18-2025 MYRIAD FORESIGHT CARRIER SCREEN [facility] Comment on above: Expected: 03/19/2025 , Expires: 06/18/2025 Start: 03-19-2025 End: 06-18-2025 Protein/Creatinine [Mass Ratio] in Urine [facility] Comment on above: Expected: 03/19/2025 , Expires: 06/18/2025 Start: 03-19-2025 End: 03-19-2025 Patient encounter procedure 03/19/2025 9:00 AM EDT Routine Office Visit OB/Gynecology [address] [place], [place] [id number] Lorraine Roldan APRN.CNM [address] 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 Expected: 12/30/2024, Expires: 12/30/2025 [facility] Comment on above: Expected: 12/30/2024 , Expires: 12/30/2025 Start: 12-30-2024 End: 12-30-2025 LIPID PANEL W CALCULATED LDL LIPID PANEL W CALCULATED LDL Lab Routine 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 Expected: 12/30/2024, Expires: 12/30/2025 [facility] Comment on above: Expected: 12/30/2024 , Expires: 12/30/2025 Start: 12-30-2024 End: 12-30-2025 TSH W/FT4 REFLEX TSH W/FT4 REFLEX Lab Routine 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 Expected: 12/30/2024, Expires: 12/30/2025 [facility] Comment on above: Expected: 12/30/2024 , Expires: 12/30/2025 Start: 11-20-2024 End: 02-19-2025 17-Hydroxyprogesterone [Mass/volume] in Serum or Plasma [facility] Comment on above: Expected: 11/20/2024 , Expires: 02/19/2025 Start: 11-20-2024 End: 02-19-2025 DHEA-S BLD [facility] Comment on above: Expected: 11/20/2024 , Expires: 02/19/2025 Start: 11-20-2024 End: 02-19-2025 Estradiol (E2) [Mass/volume] in Serum or Plasma [facility] Comment on above: Expected: 11/20/2024 , Expires: 02/19/2025 Start: 11-20-2024 End: 02-19-2025 Follitropin [Units/volume] in Serum or Plasma [facility] Comment on above: Expected: 11/20/2024 , Expires: 02/19/2025 Start: 11-20-2024 End: 02-19-2025 Hemoglobin A1c in Blood [facility] Comment on above: Expected: 11/20/2024 , Expires: 02/19/2025 Start: 11-20-2024 End: 02-19-2025 Lutropin [Units/volume] in Serum or Plasma [facility] Comment on above: Expected: 11/20/2024 , Expires: 02/19/2025 Start: 11-20-2024 End: 02-19-2025 Prolactin [Mass/volume] in Serum or Plasma [facility] Work Phone: Comment on above: Expected: 11/20/2024 , Expires: 02/19/2025 Start: 11-20-2024 End: 02-19-2025 TESTOSTERONE, FREE AND TOTAL, BY EQUILIBRIUM ULTRAFILTRATION MASS SPECTROMETRY [facility] Comment on above: Expected: 11/20/2024 , Expires: 02/19/2025 Start: 10-23-2024 End: 11-23-2024 Thyrotropin [Units/volume] in Serum or Plasma [facility] Service Area Work Phone: Comment on above: Expected: 10/23/2024 (Approximate), Expires: 11/23/2024 Start: 10-23-2024 End: 10-23-2024 Patient encounter procedure 10/23/2024 8:30 AM EST Office Visit [facility] [address] [facility] [address] [place] [phone] Tammy Simeon, MERCHANDISING TEAM LEAD-CHIEF PHARMACIST [address] [facility], [address], [facility] [address] [place] [address] [facility] Start: 06-07-2024 COVID-19 VACCINE ( season) COVID-19 VACCINE ( season) [facility] Start: 06-07-2024 COVID-19 Vaccine ( season) COVID-19 Vaccine ( season) [facility] Start: 06-07-2024 Influenza vaccination Influenza Vacc ine (#1) [facility] Start: 04-17-2024 End: 04-17-2024 Patient encounter procedure 04/17/2024 9:30 AM EDT Office Visit [facility] [address] [facility] [address] [place] [phone] Tammy Simeon, MERCHANDISING TEAM LEAD-CHIEF PHARMACIST [address] [facility], [address], [address] [place] [address] [facility] Start: 03-10-2024 End: 03-10-2024 Patient encounter procedure 03/10/2024 3:40 PM EDT Office Visit [facility] [address] [place] [phone] [place] [address] Department [place] [address] [facility] Start: 03-10-2024 End: 03-10-2025 C reactive protein [Mass/volume] in Serum or Plasma C-Reactive Protein Lab Routine Arthralgia, unspecified joint Expected: 03/10/2024 (Approximate), Expires: 03/10/2025 [facility] Work Phone: Comment on above: Expected: 03/10/2024 (Approximate), Expires: 03/10/2025 Start: 03-10-2024 End: 03-10-2025 CBC W Auto Differential panel - Blood CBC and Auto Differential Lab Routine Arthralgia, unspecified joint Expected: 03/10/2024 (Approximate), Expires: 03/10/2025 [facility] Work Phone: Comment on above: Expected: 03/10/2024 (Approximate), Expires: 03/10/2025 Start: 03-10-2024 End: 03-10-2025 Comprehensive metabolic 2000 panel - Serum or Plasma Comprehensive Metabolic Panel Lab Routine Arthralgia, unspecified joint Expected: 03/10/2024 (Approximate), Expires: 03/10/2025 [facility] Work Phone: Comment on above: Expected: 03/10/2024 (Approximate), Expires: 03/10/2025 Start: 03-10-2024 End: 03-10-2025 Cyclic citrullinated peptide IgG Ab [Units/volume] in Serum or Plasma Citrulline Antibody, IgG Lab Routine Arthralgia, unspecified joint Expected: 03/10/2024 (Approximate), Expires: 03/10/2025 [facility] Work Phone: Comment on above: Expected: 03/10/2024 (Approximate), Expires: 03/10/2025 Start: 03-10-2024 End: 03-10-2025 Erythrocyte sedimentation rate Sedimentation Rate Lab Routine Arthralgia, unspecified joint Expected: 03/10/2024 (Approximate), Expires: 03/10/2025 [facility] Service Area Work Phone: Comment on above: Expected: 03/10/2024 (Approximate), Expires: 03/10/2025 Start: 03-10-2024 End: 03-10-2025 Nuclear Ab [Presence] in Serum by Hep2 substrate AMIE with Reflex to CLEO Lab Routine Arthralgia, unspecified joint Expected: 03/10/2024 (Approximate), Expires: 03/10/2025 [facility] Work Phone: Comment on above: Expected: 03/10/2024 (Approximate), Expires: 03/10/2025 Start: 03-10-2024 End: 03-10-2025 Rheumatoid factor [Units/volume] in Serum by Nephelometry Rheumatoid Factor Lab Routine Arthralgia, unspecified joint Expected: 03/10/2024 (Approximate), Expires: 03/10/2025 [facility] Work Phone: Comment on above: Expected: 03/10/2024 (Approximate), Expires: 03/10/2025 Start: 03-10-2024 End: 03-10-2025 XR Pelvis 3 Views XR pelvis 3+ views Imaging Routine Arthralgia, unspecified joint Expected: 03/10/2024, Expires: 03/10/2025 [facility] Work Phone: Comment on above: Expected: 03/10/2024 , Expires: 03/10/2025 Start: 01-23-2024 End: 01-23-2024 Patient encounter procedure [facility] Start: 01-09-2024 End: 01-09-2024 Patient encounter procedure 01/09/2024 9:30 AM EDT Office Visit [facility] [address] [phone] Tammy Simeon, MERCHANDISING TEAM LEAD-CHIEF PHARMACIST [address] [facility], [address], [address] [address] [facility] Start: 01-03-2024 End: 01-03-2024 Patient encounter procedure 01/03/2024 10:00 AM EDT Office Visit [facility] [address] [phone] Tammy Simeon, MERCHANDISING TEAM LEAD-CHIEF PHARMACIST [address] [facility], [address], [address] [place] [address] [facility] Start: 10-21-2023 End: 10-21-2023 Patient encounter procedure 10/21/2023 9:15 AM EST Office Visit [facility] [address] [place] [phone] Ruben Daniel DO [address] [facility], [address] [place] [address] [facility] Start: 10-10-2023 End: 10-10-2023 Patient encounter procedure 10/10/2023 3:00 PM EST Office Visit [facility] [address] [facility] [address] [place] [phone] Evelyn Del Rio MD [address] [facility], [facility] [address] [place] [phone] [facility] Start: 09-25-2023 Subsequent hospital visit by physician 09/25/2023 Hospital Encounter [facility] [place] [address] [place] [phone] Evelyn Del Rio MD [address] [facility], [facility] [address] [place] [phone] [facility] [place] Start: 09-05-2023 End: 09-05-2023 Patient encounter procedure 09/05/2023 2:00 PM EST Office Visit [facility] [address] [facility] [address] [place] [address] Evelyn Del Rio MD [address] [facility], [address] [place] [address] [facility] Start: 08-14-2023 FUVGENERAL, Provider : Shari Muniz, Status: Pen, Time: 1:00 PM FUVGENERAL, Provider: Shari Muniz, Status: Pen, Time: 1:00 PM KA-Vhusjvxwz-Iymj na 170 DO Work Phone: Start: 08-14-2023 Patient encounter procedure Outpatient [facility] Neurology López Start: 14-Aug-2023 13:00 Shari Muniz S Intent [facility] Neurology L[facility]pez Start: 08-06-2023 End: 08-06-2024 CBC panel - Blood by Automated count CBC Lab Routine RUQ abdominal pain Epigastric pain Nausea Expected: 08/06/2023 (Approximate), Expires: 08/06/2024 [facility] Work Phone: Comment on above: Expected: 08/06/2023 (Approximate), Expires: 08/06/2024 Start: 08-06-2023 End: 08-06-2024 Comprehensive metabolic 2000 panel - Serum or Plasma Comprehensive Metabolic Panel Lab Routine RUQ abdominal pain Epigastric pain Nausea Expected: 08/06/2023 (Approximate), Expires: 08/06/2024 [facility] Work Phone: Comment on above: Expected: 08/06/2023 (Approximate), Expires: 08/06/2024 Start: 08-06-2023 End: 08-06-2024 CT Abdomen and Pelvis W contrast IV CT abdomen pelvis w IV contrast Imaging Routine RUQ abdominal pain Epigastric pain Nausea Expected: 08/06/2023, Expires: 08/06/2024 [facility] Service Area Work Phone: Comment on above: Expected: 08/06/2023 , Expires: 08/06/2024 Start: 07-05-2023 FUVGENERAL, Provider : Tammy Simeon, Status: Pen, Time: 2:00 PM FUVGENERAL, Provider: Tammy Simeon, Status: Pen, Time: 2:00 PM YM-Lgoehbfvc-[place] [address] Work Phone: Start: 06-25-2023 Varicella vaccination Varicell a Vaccines (2 of 2 - 13+ 2-dose series) [facility] Start: 06-07-2023 COVID-19 Vaccine ( season) COVID-19 Vaccine ( season) [facility] Start: 06-07-2023 Influenza vaccination Influenza Vacc ine (#1) [facility] Start: 01-17-2023 Patient encounter procedure ANNUAL, Provider: Nancy Ross, Status: Pen, Time: 9:00 AM [facility] Work Phone: Start: 01-04-2023 FUVGENERAL, Provider : Tammy Simeon, Status: Pen, Time: 3:30 PM FUVGENERAL, Provider: Tammy Simeon, Status: Pen, Time: 3:30 PM [facility] [address] Work Phone: Start: 12-10-2022 Patient encounter procedure [facility] Start: 12-10-2022 RNVISIT, Provider: Erika GARCIA RN ASHLND 1,[id number], Status: Pen, Time: 2:00 PM RNVISIT, Provider: LAWANDA GARCIA RN ASHLND 1,[id number], Status: Pen, Time: 2:00 PM [facility] Work Phone: Start: 11-29-2022 FUV, Provider: Jie Seymour, Status: Pen, Time: 2:00 PM FUV, Provider: Jie Seymour, Status: Pen, Time: 2:00 PM [facility] Work Phone: Start: 11-21-2022 NPVGENERAL, Provider : Som Rosas, Status: Pen, Time: 2:30 PM NPVGENERAL, Provider: Som Rosas, Status: Pen, Time: 2:30 PM [facility] Work Phone: Start: 11-21-2022 Patient encounter procedure [facility] Neu[facility] Start: 10-17-2022 FUV, Provider: Tobias Campos, Status: Pen, Time: 11:45 AM FUV, Provider: Tobias Campos, Status: Pen, Time: 11:45 AM [place] [employer] Work Phone: Start: 10-12-2022 AUTONOMIC, Provider: AUTO-BOLESTEBAN 5,NEURODIAG, Status: Pen, Time: 1:00 PM AUTONOMIC, Provider: AUTO-BOLWELL 5,NEURODIAG, Status: Pen, Time: 1:00 PM [facility] Work Phone: Start: 10-12-2022 Patient encounter procedure Neurology [facility] [address] Start: 10-10-2022 Patient encounter procedure [facility] Start: 2022 HPV Vaccine (1 - 3-d ose SCDM series) HPV Vaccine (1 - 3-dose SCDM series) [facility] Start: 09-17-2022 RNVISIT, Provider: Erika GARCIA RN ASHJASWINDERD 1,[id number], Status: Pen, Time: 2:00 PM RNVISIT, Provider: LAWANDA NOVAK 1,[id number], Status: Pen, Time: 2:00 PM [facility] Work Phone: Start: 08-15-2022 FUVGENERAL, Provider : Shari Muniz, Status: Pen, Time: 1:00 PM FUVGENERAL, Provider: FlavioLung, Status: Pen, Time: 1:00 PM OM-Rvqvwiwxm-Whre na 170 DO Work Phone: Start: 08-15-2022 Patient encounter procedure [facility] Neurology López Start: 07-26-2022 ECHO, Provider: LUZ ELENA MONTGOMERY ECHO 2,[id number], Status: Pen, Time: 11:30 AM ECHO, Provider: THEO PROCTORI ECHO 2,SMCECHO2, Status: Pen, Time: 11:30 AM [place] [employer] Work Phone: Start: 07-26-2022 STRESS TERRI, Provider : THEO MONTGOMERY STRESS 2,SMCSTRESS2, Status: Pen, Time: 10:00 AM STRESS TERRI, Provider: THEO PROCTORI STRESS 2,SMCSTRESS2, Status: Pen, Time: 10:00 AM [facility] Work Phone: Start: 07-19-2022 NPV, Provider: Tobias Campos, Status: Pen, Time: 11:30 AM NPV, Provider: Tobias Campos, Status: Pen, Time: 11:30 AM [facility] Work Phone: Start: 06-25-2022 RNVISIT, Provider: Erika GARCIA RN ASHLND 1,[id number], Status: Pen, Time: 2:15 PM RNVISIT, Provider: LAWANDA GARCIA RN ASHLND 1,[id number], Status: Pen, Time: 2:[address] Work Phone: Start: 06-12-2022 DRYNDL, Provider: Mehnaz Martinez, Status: Pen, Time: 2:45 PM DRYNDL, Provider: Mehnaz Martinez, Status: Pen, Time: 2:45 PM [facility] [address] Work Phone: Start: 05-30-2022 DRYNDL, Provider: Mehnaz Martinez, Status: Pen, Time: 2:00 PM DRYNDL, Provider: Mehnaz Martinez, Status: Pen, Time: 2:00 PM [facility] Work Phone: Start: 05-30-2022 Patient encounter procedure Outpatient [facility] Rehab [address] [place] [address] Start: 30-May-2022 14:00 Flavio, Lung S Intent [facility] Rehab Start: 05-25-2022 FUV, Provider: Evelyn Busch, Status: Pen, Time: 1:20 PM FUV, Provider: Evelyn Busch, Status: Pen, Time: 1:20 PM [facility] Work Phone: Start: 05-23-2022 DRYNDL, Provider: Mehnaz Martinez, Status: Pen, Time: 1:15 PM DRYNDL, Provider: Mehnaz Martinez, Status: Pen, Time: 1:15 PM [facility] Work Phone: Start: 05-15-2022 DRYNDL, Provider: Mehnaz Martinez, Status: Pen, Time: 10:45 AM DRYNDL, Provider: Mehnaz Martinez, Status: Pen, Time: 10:45 AM [facility] Work Phone: Start: 04-18-2022 FUVGENERAL, Provider : Shari Muniz, Status: Pen, Time: 1:00 PM FUVGENERAL, Provider: Shari Muniz, Status: Pen, Time: 1:00 PM CQ-Fdndxiovy-Qopg na 170 DO Work Phone: Start: 03-06-2022 COVID-19 Vaccine (4 - Moderna series) COVID-19 Vaccine (4 - Moderna series) [facility] Start: 01-17-2022 FUVGENERAL, Provider : Shari Muniz, Status: Pen, Time: 1:00 PM FUVGENERAL, Provider: Shari Muniz, Status: Pen, Time: 1:00 PM SW-Qvmuftopb-Xkhh na 170 DO Work Phone: Start: 01-17-2022 FUVGENERAL, Provider : Shari Muniz, Status: Pen, Time: 11:00 AM FUVGENERAL, Provider: FlavioLung, Status: Pen, Time: 11:00 AM XK-Jxczzavbz-Cviy na 170 DO Work Phone: Start: 12-20-2021 FUV, Provider: Evelyn Busch, Status: Pen, Time: 1:40 PM FUV, Provider: Evelyn Busch, Status: Pen, Time: 1:40 PM [facility] Work Phone: Start: 10-18-2021 NPVGENERAL, Provider : Flavio,Lung, Status: Pen, Time: 10:30 AM NPVGENERAL, Provider: Flavio,Lung, Status: Pen, Time: 10:30 AM [facility] [facility] Work Phone: Start: 08-29-2021 FUV, Provider: Evelyn Busch, Status: Pen, Time: 1:40 PM FUV, Provider: Evelyn Busch, Status: Pen, Time: 1:40 PM [facility] Work Phone: Start: 09-09-2020 End: 09-09-2020 Follow-Up 09/09/2020 Follow-Up Sports Medicine Ernie Grove MD [address] [place] [address] [phone] [facility] Start: 08-05-2020 End: 08-05-2020 Follow-Up 08/05/2020 Follow-Up Sports Medicine Ernie Grove MD [address] [place] [address] [phone] [facility] Start: 06-07-2020 Influenza vaccinatio n given Sequential Influenza Vaccine (#1) [facility] Start: 01-18-2020 End: 01-18-2020 Follow-Up 01/18/2020 Follow-Up Sports Medicine Ernie Grove MD [address] [place] [address] [phone] [facility] Start: 12-07-2019 End: 12-07-2019 Follow-Up 12/07/2019 Follow-Up Sports Ernie Figueredo MD [address] [place] [address] [phone] [facility] Start: 11-09-2019 End: 11-09-2019 Follow-Up 11/09/2019 Follow-Up Sports [place] [address] [phone] [facility] Start: 08-25-2019 End: 08-25-2019 Office Visit 08/25/2019 Office Visit Neurology Italia Mcmillan, DO [address] [place] [address] [phone] [facility] Start: 06-13-2019 End: 03-13-2020 Electromyography EMG & NERVE CONDUCTION Neurology Routine Muscle weakness (generalized) Expected: 06/13/2019, Expires: 03/13/2020 Unmetric Comment on above: Expected: 06/13/2019 , Expires: 03/13/2020 Start: 06-07-2019 Influenza vaccination [facility] Start: 06-07-2019 Influenza vaccinatio n given SEQUENTIAL INFLUENZA VACCINE (#1) [facility] Start: 04-29-2019 End: 04-29-2019 Office Visit 04/29/2019 Office Visit Neurology Italia Mcmillan, DO [address] [place] [address] [phone] [facility] Start: 04-22-2019 End: 04-22-2019 Office Visit [facility] Start: 03-13-2019 End: 03-13-2020 MRI angiography of head MRI ARTERIOGRAM BRAIN WITHOUT CONTRAST Imaging Routine Worst headache of life Expected: 03/13/2019, Expires: 03/13/2020 Unmetric Comment on above: Expected: 03/13/2019 , Expires: 03/13/2020 Start: 03-13-2019 End: 03-13-2020 MRI of cervical spine MRI SPINE CERVICAL WITHOUT CONTRAST Imaging Routine Muscle weakness (generalized) Numbness and tingling in both hands Expected: 03/13/2019, Expires: 03/13/2020 Unmetric Comment on above: Expected: 03/13/2019 , Expires: 03/13/2020 Start: 03-13-2019 End: 03-13-2020 SEDIMENTATION RATE, AUTOMATED SEDIMENTATION RATE, AUTOMATED Lab Routine Worst headache of life Expected: 03/13/2019, Expires: 03/13/2020 Unmetric Comment on above: Expected: 03/13/2019 , Expires: 03/13/2020 Start: 03-13-2019 End: 03-13-2019 Office Visit 03/13/2019 Office Visit Neurology Hipolito Italia F, DO [address] [facility] [place] [address] Arrived [facility] Chrissy Vaughn Comment on above: Arrived Start: 06-07-2018 Influenza vaccination SEQUENTI AL INFLUENZA VACCINE (Season Ended) [facility] Start: 2017 DTaP/Tdap/Td Vaccine s (4 - Tdap) DTaP/Tdap/Td Vaccines (4 - Tdap) [facility] Start: 06-07-2017 Influenza vaccination SEQUENTI AL INFLUENZA VACCINE (#1) [facility] Start: 2016 Screening for malign ant neoplasm of cervix [facility] Start: 2014 Hepatitis B vaccination HEP B VACCINE (1 of 3 - 19+ 3-dose series) [facility] Start: 2014 Third diphtheria, te tanus and acellular pertussis (DTaP) vaccination TDAP (ADULT) [facility] Start: 2014 Urine microalbumin profile DTa P,Tdap,Td Vaccine (4 - Tdap) [facility] Start: 2013 Anxiety Screening Anxiety Screening [facility] Start: 2013 Depression Screening Depression Scre [facility] Start: 2013 Diabetes mellitus screening Diabetes Screening [facility] Start: 2013 Hepatitis C antibody , confirmatory test Hepatitis C Screening [facility] Start: 2013 Hepatitis C screening Hepatitis C Sc reening [facility] Start: 2013 HIV screening HIV Screening [facility] Start: [address] [facility] Start: 2011 Screening for Chlamy azalia trachomatis CHLAMYDIA SCREEN [facility] Start: 2010 HIV screening [facility] Start: 2010 Vaccination for alvaro n papillomavirus HPV VACCINE ADOL (1 - Female 3-dose series) [facility] Start: 2008 HIV screening HIV SCREENING DISCUSSION [facility] Start: 2007 Adolescent depressio n screening assessment Depression Screening (PHQ9) [facility] Start: 2006 Vaccination for alvaro n papillomavirus [facility] Start: 1999 IPV Vaccines (4 of 4 - 4-dose series) IPV Vaccines (4 of 4 - 4-dose series) [facility] Start: 1998 History and physical examination, annual for health maintenance Wellness Visit [facility] Start: 1995 Depression screening using PHQ-9 (Patient Health Questionnaire 9) score DEPRESSION SCREENING (PHQ9) [facility] Start: 1995 GONORRHEA SCREEN GONORRHEA SCREEN OS U [facility] Start: 1995 Hepatitis C screening HEPATITI S C VIRUS SCREENING [facility] Start: 1995 HIV screening HIV Screening [facility] Start: 1995 Screening for Chlamy azalia trachomatis Chlamydia Screening [facility] Start: 1995 Screening for malign ant neoplasm of cervix [facility] Start: 1995 Tetanus vaccination [facility] Start: 1995 Yearly Adult Physical Yearly Adult P hysical [facility] End: 03-23-2025 Bacteria identified in Urine by Culture [facility] Work Phone: Comment on above: Once (Lab) for 1 Occ urrences starting 03/23/2025 until 03/23/2025 End: 09-25-2023 Choriogonadotropin ( test) [Presence] in Urine [facility] Service Area Work Phone: Comment on above: Once (Lab) for 1 Occ urrences starting 09/25/2023 until 09/25/2023 STAT (Lab) for 1 Occ urrences starting 09/25/2023 until 09/25/2023 End: 03-23-2025 Extra Urine Parra Tube [facility] Work Phone: Comment on above: Once for 1 Occurrenc es starting 03/23/2025 until 03/23/2025 Glucose [Mass/volume ] in Serum or Plasma POCT Glucose Point of Care Testing - Docked Device Routine As needed (Lab) until discontinued starting 09/25/2023 [facility] Service Area Work Phone: Comment on above: As needed (Lab) unti l discontinued starting 09/25/2023 Laparoscopy surg cholecystectomy Cholecystectomy Laparoscopy Biliary dyskinesia Virtual PAUL OR Needle emg ea extrem ty w/paraspinl area complete [place] NEEDLE EMG EA EXTREMTY W/PARASPINL AREA COMPLETE AZ Charge Routine Bilateral numbness and tingling of arms and legs Ordered: 04/22/2019 Unmetric Comment on above: Ordered: 04/22/2019 Nerve conduction rhys dies 13/> studies [place] NERVE CONDUCTION STUDIES 13/> STUDIES [place] Charge Routine Bilateral numbness and tingling of arms and legs Ordered: 04/22/2019 Unmetric Comment on above: Ordered: 04/22/2019 End: 10-13-2025 OBSTETRIC ULTRASOUND [facility] OBSTETRIC ULTRASOUND [facility] Anc Imaging Routine Obesity in (HCC) Low-lying placenta without hemorrhage, second trimester (HCC) Once per month for 5 Occurrences starting 04/16/2025 until 10/13/2025 [facility] Work Phone: Comment on above: Once per month for 5 Occurrences starting 04/16/2025 until 10/13/2025 Surgical pathology study Surgica l Pathology Exam Pathology and Cytology Routine Biliary dyskinesia Release Upon Ordering for 1 Occurrences starting 09/25/2023 [facility] Work Phone: Comment on above: Release Upon Orderin g for 1 Occurrences starting 09/25/2023 End: 03-23-2025 Urinalysis complete W Reflex Culture panel - Urine [facility] Service Area Work Phone: Comment on above: Once (Lab) for 1 Occ urrences starting 03/23/2025 until 03/23/2025 End: 08-09-2023 US Abdomen [facility] Service Area Work Phone: Comment on above: Once for 1 Occurrenc es starting 08/09/2023 until 08/09/2023 End: 12-27-2023 XR Foot - left 3 Views [facility] Service Area Work Phone: Comment on above: Once for 1 Occurrenc es starting 12/27/2023 until 12/27/2023 End: 03-11-2024 XR Pelvis 1 or 2 Views [facility] Service Area Work Phone: Comment on above: Once for 1 Occurrenc es starting 03/11/2024 until 03/11/2024 NEGATED: Highlighted row has been ruled out! Planned Goals not documented [facility] Work Phone: Immunizations Immunization Date Immunization Notes Care Provider Alayna muñoz 06-11-2025 influenza, seasonal, injectable, preservative free Lorraine Roldan MERCHANDISING TEAM LEAD.CNM Work Phone: [facility] 06-11-2025 tetanus toxoid, redu ryan diphtheria toxoid, and acellular pertussis vaccine, adsorbed Lorraine Roldan MERCHANDISING TEAM LEAD.CNM Work Phone: [facility] 08-31-2024 influenza, seasonal, injectable, preservative free Tammy Simeon MERCHANDISING TEAM LEAD-CHIEF PHARMACIST Work Phone: [facility] 08-31-2024 influenza virus vaccine, unspecified formulation [facility] 12-31-2023 hepatitis B vaccine, adult dosage Alba Briseyda MERCHANDISING TEAM LEAD.CHIEF PHARMACIST Work Phone: [facility] 09-04-2023 influenza, injectabl e, quadrivalent, preservative free Evelyn Del Rio MD Work Phone: [facility] Work Phone: 09-04-2023 influenza virus vaccine, unspecified formulation Tammy Simeon MERCHANDISING TEAM LEAD-CHIEF PHARMACIST Work Phone: [facility] Work Phone: 05-28-2023 hepatitis B vaccine, adult dosage Alba [place] MERCHANDISING TEAM LEAD.CHIEF PHARMACIST Work Phone: [facility] 05-28-2023 measles, mumps and rubella virus vaccine Alba [place] MERCHANDISING TEAM LEAD.CHIEF PHARMACIST Work Phone: [facility] 05-28-2023 varicella virus vaccine Gus Bradley PA-C Work Phone: [facility] Work Phone: 01-09-2022 Moderna COVID-19 Vaccine 100 MCG/0.5ML Intramuscular Suspension Evelny Busch Work Phone: [id number] DO Work Phone: Comment on above: Series: 01-25-2021 Moderna COVID-19 Vaccine 100 MCG/0.5ML Intramuscular Suspension Evelyn L Oberhauser Work Phone: [facility] Work Phone: 12-28-2020 Moderna COVID-19 Vaccine 100 MCG/0.5ML Intramuscular Suspension Evelyn L Oberhauser Work Phone: [facility] Work Phone: 08-25-2009 novel [id number], preservative-free, injectable Evelyn L Oberhauser Work Phone: [facility] Work Phone: 08-25-2009 influenza virus vaccine, unspecified formulation Gus Bradley PA-C Work Phone: [facility] Work Phone: 05-06-1996 DTP-Haemophilus influenzae type b conjugate vaccine Evelyn L Oberhauser Work Phone: [facility] Work Phone: 05-06-1996 hepatitis B vaccine, pediatric or pediatric/adolescent dosage Evelyn L Oberhauser Work Phone: [facility] Work Phone: 05-06-1996 trivalent poliovirus vaccine, live, oral Evelyn L Oberhauser Work Phone: [facility] Work Phone: 05-06-1996 poliovirus vaccine, unspecified formulation Sanya Arana PA-C Work Phone: [facility] Work Phone: 03-04-1996 DTP-Haemophilus influenzae type b conjugate vaccine Evelyn L Oberhauser Work Phone: [facility] Work Phone: 03-04-1996 trivalent poliovirus vaccine, live, oral Evelyn L Oberhauser Work Phone: [facility] Work Phone: 1995 DTP-Haemophilus influenzae type b conjugate vaccine Evelyn Wiseerdevaner Work Phone: [facility] Work Phone: 1995 hepatitis B vaccine, pediatric or pediatric/adolescent dosage Evelyn Longo Oberdevaner Work Phone: [facility] Work Phone: 1995 trivalent poliovirus vaccine, live, oral Evelyn Longo Oberhauser Work Phone: [facility] Work Phone: 1995 hepatitis B vaccine, pediatric or pediatric/adolescent dosage Evelyn Longo Oberdevaner Work Phone: [facility] Work Phone: Payers Date Payer Category Payer Self-pay 2023 [place] [facility] [id number] 2023 [place] [facility] [facility] [id number]. [id number] 2023 [place] Cross Blue [facility] [id number] 2.16.840.1.238077.19 2019 Unknown [id number] 2019 Unknown ANTHEM ANTHEM BLUE/PREF/HMO/PPO [id number] 2019-Present [id number]. [id number] 2018 Managed Care (unspecified) ANTHEM HMO PPO POS [id number]. [id number] 2018 Unknown [id number] 2.16.840.1.438466.3.249.13 2017 Unknown 2016 Unknown [id number] 1995 Unknown [id number] 2.16.840.1.272651.3.579.2. 900 1995 Unknown [id number] 2.16.840.1.783302.3.579.2. 900 1995 Unknown [id number] 2.16.840.1.016301.3.579.2. 903 1995 Unknown [id number] 2.16.840.1.043666.3.579.2. 903 1995 Unknown [id number] 2.16840.1.985473.3.579.2. 903 1995 Unknown [id number] 2.16840.1.615980.3.579.2. 1995 Unknown [id number] 2.16.840.1.634047.3.579.2. 1995 Unknown [id number] 2.16840.1.163021.3.579.2. 1995 Unknown [id number] 2.16840.1.108969.3.579.2. 1995 Unknown [id number] 2.16840.1.753985.3.579.2. 1995 Unknown [id number] 2.16840.1.943027.3.579.2. 1068 1995 Unknown [id number] 2.840.1.234343.3.579.2. 1068 1995 Unknown [id number] 2.840.1.042008.3.579.2. 1068 1995 Unknown [id number] 2.840.1.692767.3.579.2. 1068 1995 Unknown [id number] 2.840.1.654304.3.579.2. 1068 1995 Unknown [id number] 2.840.1.796257.3.579.2. 1068 1995 Unknown [id number] 2.16840.1.396116.3.579.2. 1068 1995 Unknown [id number] 2.16840.1.797134.3.579.2. 1068 1995 Unknown [id number] 2.16840.1.559836.3.579.2. 1068 1995 Unknown [id number] 2.16840.1.274145.3.579.2. 1068 1995 Unknown [id number] 2.16.840.1.590103.3.579.2. 1069 1995 Unknown [id number] 2.840.1.278456.3.579.2. 1069 1995 Unknown [id number] 2.840.1.254630.3.579.2. 356 1995 Unknown [id number] 2.840.1.552173.3.579.2. 356 1995 Unknown [id number] 2.840.1.567238.3.579.2. 356 1995 Unknown [id number] 2.840.1.239150.3.579.2. 356 1995 Unknown [id number] 2.840.1.431361.3.579.2. 356 1995 Unknown [id number] 11.22.830.1.195431.3.579.2. 356 1995 Unknown [id number] 2.840.1.930277.3.579.2. 356 1995 Unknown [id number] 2840.1.882012.3.579.2. 356 1995 Unknown [id number] 2.840.1.029453.3.579.2. 356 1995 Unknown [id number] 11.22.830.1.805677.3.579.2. 356 1995 Unknown [id number] 2.840.1.327181.3.579.2. 356 1995 Unknown [id number] 840.1.117889.3.579.2. 356 1995 Unknown [id number] 2.840.1.475276.3.579.2. 1245 1995 Unknown [id number] 2.840.1.102208.3.579.2. 1245 1995 Unknown [id number] 2.16.840.1.498193.3.579.2. 1245 1995 Unknown [id number] 2.16.840.1.484492.3.579.2. 1244 1995 Unknown [id number] 2.16.840.1.788555.3.579.2. 1244 1995 Unknown [id number] 2.16.840.1.350791.3.579.2. 1244 1995 Unknown [id number] 2.16.840.1.983147.3.579.2. 983 1995 Unknown [id number] 2.16.840.1.284390.3.579.2. 1243 Unknown [id number] Unknown [id number] 2.16.840.1.738814.3.579.2. 462 Unknown [id number] 2.16.840.1.461092.3.579.2. 462 Social History Date Type Detail Facility Start: 02-24-2018 End: 11-20-2024 Tobacco smoking status NHIS Never smoker [facility] Start: 1995 Sex Assigned At Not on file [facility] Start: 08-27-2019 End: 09-10-2020 Alcohol intake Current non-drinker of alcohol (finding) [facility] Exposure to SARS-CoV-2 (event) Unable to assess [facility] Start: 07-20-2020 End: 11-20-2024 Tobacco use and exposure Never used [facility] Start: 07-27-2023 End: 10-23-2024 Exposure to SARS-CoV-2 (event) Not sure [facility] Start: 08-06-2023 End: 01-29-2025 Never a smoker Never a smoker [facility] Work Phone: Tobacco smoking consumption unknown [facility] Start: 08-06-2023 End: 01-29-2025 Sex Assigned At [employer] Other Start: 08-06-2023 End: 09-05-2023 Alcohol intake Ex-drinker (finding) [facility] Work Phone: Start: 09-25-2023 End: 03-23-2025 Alcohol intake Current drinker of alcohol (finding) [facility] Work Phone: Start: 09-25-2023 Alcohol Comment occass [facility] Work Phone: Start: 11-20-2024 End: 06-04-2025 Alcoholic beverage intake Lifetime non-drinker (finding) [facility] Start: 09-28-2024 National Score (1-100), lower number is lower risk 58 [facility] Start: 08-28-2019 Alcohol Comment only a couple times a year [facility] Start: 02-13-2019 Sex Female (finding) [facility] Start: 12-29-2024 Gender identity Identifies as female gender (finding) [facility] Start: 12-29-2024 Sexual orientation Heterosexual (fin ding) [facility] Start: 01-28-2025 Education 17 [facility] Start: 12-11-2024 [facility] Start: 1995 Sex assigned at Female [facility] NEGATED: [facility]ed [facility] Equipment Procedure Code Equipment Code Equipment Origin al Text Equipment Identifier Dates Screw 4 X 38mm C syed Short Thrd - [id number] Start: 10-22-2019 Screw 4 X 40mm C syed Short Thrd - [id number] Start: 10-22-2019 Use as directed to check glucose levels up to seven times daily. [id number] Start: 06-21-2025 Use as directed to check glucose levels up to seven times daily. [id number] Start: 06-21-2025 Goals Date Patient Goal Desired Activity /State Personal health goal Functional Status Date Assessment Result Facility 03-23-2025 [place] - suicide severity rating scale screener - recent [C-SSRS] [facility] Work Phone: NEGATED: Highlighted row Functional performance Functional status health issues are not documented [facility] Work Phone: Mental Status Date Assessment Result Facility NEGATED: Highlighted row Cognitive function [Interpretation] Cognitive status health issues are not documented Disease [facility] Work Phone: Clinical Notes 01-05-2019 to 08-16-2025 Telephone Encounter - Eulalia Rondon RN - 06/21/2025 11:30 AM EDTTelephone Encounter - Eulalia Rondon RN - 06/21/2025 11:30 AM Hilda Dickerson LPN - 06/11/2025 7:36 AM EDTPatient Instructions Note Date & Type Note Facility 08-16-2025 Note HNO ID: [id number] Author: SHAQUILLE POON MD Service: ? Author Type: Physician Type: Progress Notes Filed: 08/16/2025 10:57 Note Text: NST SUMMARY PROVIDER ASSESSMENT AND INTERPRETATION Jennifer Henley is a 29 year old female, , who is at 37w3d with an LILIANE of 09/03/2025, by Last Menstrual Period dating method. Indications for NST: Diabetes - Diet Controlled and Obesity Baseline: 120 Variability: Moderate Accelerations: Present 15 X 15 Decelerations: None Contractions: TOCO: None Interpretation: Category I and Reactive SIGNATURE: Shaquille White MD [facility] 08-13-2025 Note HNO ID: [id number] Author: NELI VALENCIA MD Service: ? Author Type: Physician Type: Progress Notes Filed: 08/13/2025 14:38 Note Text: NST SUMMARY PROVIDER ASSESSMENT AND INTERPRETATION Jennifer Henley is a 29 year old female, , who is at 37w0d with an LILIANE of 09/03/2025, by Last Menstrual Period dating method. Indications for NST: Diabetes - Diet Controlled and Obesity Baseline: 125 Variability: Moderate Accelerations: Present 15 X 15 Decelerations: None Contractions: TOCO: no regular ctxs Interpretation: Reactive SIGNATURE: Neli Valencia MD [facility] 08-06-2025 Note HNO ID: [id number] Author: SHAQUILLE POON MD Service: ? Author [...] I and Reactive SIGNATURE: Shaquille White MD [facility] 07-19-2025 Note HNO ID: [id number] Author: SHAQUILLE POON MD Service: ? Author [...] I and Reactive SIGNATURE: Shaquille White MD [facility] 07-09-2025 Note HNO ID: [id number] Author: AGNES DEL CID RN Service: ? Author Type: Registered Nurse Type: Progress Notes Filed: 07/09/2025 16:12 Note Text: Skin testing Med information Pen-G ND: 3452-8869-30 Lot: [id number] Exp: 05/2027 PrePen ND: 28522-086-88 Lot: [id number] Exp: 07/2026 [facility] 07-09-2025 Note HNO ID: [id number] Author: TAYLOR WOOTEN APRN.ISAIAH Service: ? Author Type: Nurse Practitioner Type: Progress Notes Filed: 07/09/2025 16:12 Note Text: [facility] Allergy AND Clinical Immunology HPI Jennifer Henley [...] evaluation in the context of Taylor Wooten APRN.CHIEF PHARMACIST Interim History Patient is 32 weeks . [...] devices as directed. Blood-Glucose Meter,Continuous (DEXCOM G7 OIL TESTER) misc 1 device as directed. blood sugar [...] the penicillin julio (more content not included)... [facility] 06-25-2025 Note HNO ID: [id number] Author: JOY DENNISON RD Service: ? Author Type: Registered Dietitian Type: Progress Notes Filed: 06/25/2025 12:22 Note Text: [facility] Medical Nutrition Therapy Visit Type: Virtual: [...] BG numbers -Blo (more content not included)... [facility] 06-24-2025 Note HNO ID: [id number] Author: BRE ZAMORA RN Service: ? Author Type: Registered Nurse Type: Progress Notes Filed: 06/24/2025 09:36 Note Text: DIABETES SELF-MANAGEMENT EDUCATION AND SUPPORT Location: [place] Type of visit: Virtual (with video) individual -- I have communicated my name and active licensure. The patient's identity and physical location were verified at the time of this visit. Either the patient or their legal field representative has been informed of the risks and benefits of -- and alternatives to -- treatment through a remote evaluation and consents to proceed with the evaluation remotely. 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 Patient states he/she is located at home/work and is the [facility] for duration of this visit. 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 [facility] 06-21-2025 Telephone encounter Note Patient notified of results, verbalizes understanding of instructions. Transferred to PSS to schedule consult appointments. Eulalia Rondon RN [facility] 06-21-2025 Miscellaneous Notes Patient notified of results, verbalizes understanding of instructions. Transferred to PSS to schedule consult appointments. Eulalia Rondon RN Patient already has growth ultrasound scheduled for this Saturday. Please file pended orders for supplies and teaching. Eulalia Rondon RN Patient did not pass 3 hr GTT. She has a diagnosis of gestational diabetes. Needs supplies and teaching please. documented in this encounter [facility] 06-21-2025 Telephone encounter Note Patient already has growth ultrasound scheduled for this Saturday. Please file pended orders for supplies and teaching. Eulalia Rondon RN T [facility] 06-21-2025 Telephone encounter Note Patient did not pass 3 hr GTT. She has a diagnosis of gestational diabetes. Needs supplies and teaching please. [facility] 06-11-2025 Progress note Formatting of t [...] RTO in 4 weeks Lorraine Roldan APRN.CNM [facility] 06-11-2025 Miscellaneous Notes VAIBHAV-S: Jennifer Henley [...] Lorraine Roldan APRN.CNM documented in this encounter [facility] 06-11-2025 Note HNO ID: [id number] Author: HILDA GOINS LPN Service: ? Author [...] severely ill: Yes Patient denies history of Guillain-[place] Syndrome (a severe paralytic illness): Yes Tdap Adacel injection was given without incident. See immunizations for details of immunizations administered today. VIS sheet provided: Yes Provider Lorraine Roldan APRN CNM was present in office at time of injection. Hilda Goins LPN [facility] 06-11-2025 History of Present illness Narrative [...] severely ill: Yes Patient denies history of Guillain-[place] Syndrome (a severe paralytic illness): Yes Tdap Adacel injection was given without incident. See immunizations for details of immunizations administered today. VIS sheet provided: Yes Provider Lorraine Roldan APRN CNM was present in office at time of injection. Hilda Goins LPN documented in this encounter [facility] 06-11-2025 Instructions Hilda Goins LPN - 06/11/2025 7:32 AM EDT SEQUENTIAL SCREENINGS The [facility] offers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 state, incidental Encounter for (NT) nuchal translucency scan ([facility]) Other specified screening documented in this encounter [facility] note* Diagnosis Supervision of high risk , antepartum ([facility])- Primary Obesity in (HCC) Obesity complicating , childbirth, or the puerperium, unspecified as to episode of care or not applicable Postural orthostatic tachycardia syndrome Tachycardia, unspecified 16 weeks gestation of ([facility]) state, incidental Elevated BP without diagnosis of hypertension [facility]* Diagnosis Vaginal yeast infection- Primary Candidiasis of vulva and vagina [facility]* Diagnosis Chronic migraine with aura without status migrainosus, not intractable- Primary POTS (postural orthostatic tachycardia syndrome) Unspecified tachycardia Chronic migraine without aura without status migrainosus, not intractable Acute nonintractable headache, unspecified headache type- Primary Urinary tract infection without hematuria, site unspecified documented in this encounter [facility] Work Phone: Evaluation note* Diagnosis Obesity in (HCC)- Primary Obesity complicating , childbirth, or the puerperium, unspecified as to episode of care or not applicable with uncertain dates, antepartum ([facility]) state, incidental Low-lying placenta without hemorrhage, second trimester ([facility]) documented in this encounter [facility] note* Diagnosis 20 weeks gestation of ([facility])- Primary state, incidental Supervision of high risk , antepartum ([facility]) Obesity in (HCC) Obesity complicating , childbirth, or the puerperium, unspecified as to episode of care or not applicable Postural orthostatic tachycardia syndrome Tachycardia, unspecified Low lying placenta, antepartum ([facility]) documented in this encounter [facility] note* Diagnosis Adverse effect of penicillin, initial encounter- Primary Adverse effect of cephalosporin, initial encounter 27 weeks gestation of ([facility]) state, incidental [facility] Supervision of high risk , [...] allergy to penicillin [facility] Diet controlled gestational diabetes mellitus (GDM) in third trimester ([facility])- Primary [facility] - [facility]orted* Type Description Date Medical History POTS Medical History migraines [employer] Other History of Present illness Narrative* Patient [...] to a few days a month withheadache. Shelton energized and semi-normal at the time. * [...] cycle of migraines when they started in 2018. * Hot shower, ice packs sometimes helps. [...] This note was partially generated using the [employer] voice recognition system. There may be typographical errors, spelling, or punctuation errors that were not corrected prior to committing the note tothe medical record. [id number] 170 DO Work Phone: History of Present illness NarrativePatient presents with her soon-to-be . They are preparing for their wedding this Saturday. Will be leaving from [place] to a cruise by [place] the following week. Qulipta is offering some benefit, hopeful to wean off of gabapentin and zonisamide if the Qulipta is effective.[id number]-[id number] Divya CHOWDHURY Work Phone: History of Present illness Narrative* [...] her day without any headache issues. * Headaches [...] to a few days a month withheadache. Shelton energized and semi-normal at the time. * [...] This note was partially generated using the [employer] voice recognition system. There may be typographical errors, spelling, or punctuation errors that were not corrected prior to committing the note tothe medical record. [id number] 170 DO Work Phone: History of Present [...] restrictions, posture, range of motion/jointmobility and strength. [facility] Work Phone: History of Present illness Narrative* [...] restrictions, posture, range of motion/jointmobility and strength. [facility] Work Phone: History of Present illness Narrative* [...] she got up she was trying to waste picker some stuffing that her dog had torn out of a toy. * Was dusting a tv stand and she again felt the palpitations. * She is not on any new medication other than Quilpita which she has been on for a few months. [facility] Work Phone: History of Present [...] she got up she was trying to waste picker some stuffing that her dog had torn out of a toy. * Was dusting a tv stand and she again felt the palpitations. * She is not on any new medication other than Quilpita which she has been on for a few months. [facility] Work Phone: History of Present illness Narrative* Pt. presents to establish care. 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 Reports normal pap in 2019 in [place], next pap due 2022. * Pt. with history of migraines, has used DMPA x 2 years and desires to continue. States she is due for her next DMPA injection on 06/25/22. * Pt. denies any other c/o or concerns [address] Work Phone: History of Present illness Narrative* Patient referred by Evleyn Busch DO with history significant for migraine, [...] to a few days a month withheadache. Shelton energized and semi-normal at the time. * [...] wedding day without any headache issues. * Hot [...] This note was partially generated using the [employer] voice recognition system. There may be typographical errors, spelling, or punctuation errors that were not corrected prior to committing the note tothe medical record. [id number] 170 DO Work Phone: History of Present [...] to a few days a month withheadache. Shelton energized and semi-normal at the time. * [...] This note was partially generated using the [employer] voice recognition system. There may be typographical errors, spelling, or punctuation errors that were not corrected prior to committing the note tothe medical record. [facility] Work Phone: History of Present illness Narrative* Patient is here today for Ed follow up * Migraines - improved, following with Neurology, on Qlipta now, having only a few migraines since and having sig less daily headaches. Next appt they are going to work on getting off the gabapentin and zonisamide. Using Trudhesa prn for migraines. * Pt reports that on [place] even she was sitting playing cards and she had sudden sharp severe Pain in RLQ. Lasted for a few minutes, got up [place] and the pain was a 3/4 dull brittnee, was there all day, no appetite, tried eating mashed potatoes for dinner and that made her nauseas. Was getting thesharp pain intermittently all day. A few days after Mauricio and the same thing happened again so [...] on depo shot does not have periods. [facility] Work Phone: History of Present illness Narrative* Patient is here today for Ed follow up * Migraines - improved, following with Neurology, on Qlipta now, having only a few migraines since and having sig less daily headaches. Next appt they are going to work on getting off the gabapentin and zonisamide. Using Trudhesa prn for migraines. * Pt reports that on [place] even she was sitting playing cards and she had sudden sharp severe Pain in RLQ. Lasted for a few minutes, got up Maur[place] and the pain was a 3/4 dull brittnee, was there all day, no appetite, tried eating mashed potatoes for dinner and that made her nauseas. Was getting thesharp pain intermittently all day. A few days after Maur[place] and the same thing happened again so [...] on depo shot does not have periods. [facility] Work Phone: History of Present [...] cause of her headaches, rather than migraine [address] Work Phone: History of Present illness [...] was not corrected for typographical orgrammatical errors [place] [id number] Work Phone: History of Present illness Narrative* [...] * Aimovig not as helpful as the Avery [...] to a few days a month withheadache. Shelton energized and semi-normal at the time. * [...] cycle of migraines when they started in 2018. * Occipital nerve block was helpful, she [...] This note was partially generated using the [employer] voice recognition system. There may be typographical errors, spelling, or punctuation errors that were not corrected prior to committing the note tothe medical record. [facility] Work Phone: History of Present illness Narrative* Patient referred by Evelyn Busch, with history significant for migraine, POTS, GERD, [...] to a few days a month withheadache. Shelton energized and semi-normal at the time. * [...] nerve block was helpful, she had her satding day without any headache issues. * Hot [...] This note was partially generated using the [employer] voice recognition system. There may be typographical errors, spelling, or punctuation errors that were not corrected prior to committing the note tothe medical record. [id number] 170 Work Phone: History of Present illness [...] was not corrected for typographical orgrammatical errors [id number]-[id number] B 101 DO Work Phone: Hospital Discharge instructions* Attachments The following attachments cannot be sent through Care Everywhere. * Urinary Tract Infection, Adult ED ([place]) * Headache, Adult ED ([place]) [facility]* Name Dates Details Instructions not documented [facility] Work Phone: Reason for referral (narrative)* Consultation (Routine) - Pending Review Specialty Diagnoses / Procedures Referred By Yusuf marin Referred To Contact Gastroenterology Diagnoses RUQ abdominal pain Epigastric pain Nausea Gus BradleyRO [address] [facility] [place] [address] Referral ID Status Reason Start Date Expiration Date Visits Requested Visits Authorized [id number] Pending Review Specialty Services Required 3 08/05/2024 1 1 * Imaging (Routine) - Pending Review Specialty Diagnoses / Procedures Referred By Contac t Referred To Contact Radiology Diagnoses RUQ abdominal pain Epigastric pain Nausea Procedures CT abdomen pelvis w IV contrast Gus Bradley PA-C [address] [facility] [place] [address] Referral ID Status Reason Start Date Expiration Date Visits Requested Visits Authorized [id number] Pending Review Perform Procedure 3 08/05/2024 1 1 * Consultation (Routine) - Pending Review Specialty Diagnoses / Procedures Referred By Contac t Referred To Contact General Surgery Diagnoses RUQ abdominal pain Epigastric pain Gus Bradley PA-C [address] [facility] [place] [address] Referral ID Status Reason Start Date Expiration Date Visits Requested Visits Authorized [id number] Pending Review Specialty Services Required 3 08/05/2024 1 1 [facility] Work Phone: Reason for referral (narrative)* Consultation (Routine) - Authorized Specialty Diagnoses / Procedures Referred By Contac t Referred To Contact Rheumatology Diagnoses Arthralgia, unspecified joint Tammy Simeon, MERCHANDISING TEAM LEAD-CHIEF PHARMACIST [address] [facility], [facility] B, [address] [address] Referral ID Status Reason Start Date Expiration Date Visits Requested Visits Authorized [id number] Authorized Specialty Services Required 01/09/2024 01/08/2025 1 1 [facility] Work Phone: Reason for visit Narrative* Initial Evaluation . Cervical Dystonia & upper back pain. * Referred by: Shari Muniz [facility] [facility] Work Phone: Reason for visit Narrative* Consultation (Routine) - Authorized Specialty Diagnoses / Procedures Referred By Yusuf marin Referred To Contact General Surgery Diagnoses RUQ abdominal pain Epigastric pain Gus Bradley PA-C [address] [facility] [place] [address] Referral ID Status Reason Start Date Expiration Date Visits Requested Visits Authorized [id number] Authorized Specialty Services Required 3 08/05/2024 1 1 [facility] Work Phone: Assessments Diagnosis Patellofemoral disorder of [...] FoundDocuments on File Type Date Recorded 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 Advance Directives and Living Will Documents on File Type Date Recorded 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 Advance Directives and Livin g Will 10/22/2019 5:34 AM Documents on File Type Date Recorded 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 Advance Directives and Livin g Will 10/22/2019 5:34 AM Documents on File Type Date Recorded 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 Advance Directives and Livin g Will 07/20/2020 5:34 AM Documents on File Type Date Recorded 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 documented in this encounter* Kitty Ni, RN - 10/22/2019 12:11 PM EST Up [...] her mom's insurance. Her mom works at [facility] in [place]. They would like to do physical therapy. Theywill honor that due to insurance. I will see them back in 4 weeks for x-rays. Will continue local wound care and aspirin protocol. documented in this encounter* Ernie Grove MD - 12/07/2019 5:02 PM EST Dictation on: 12/07/2019 5:04 PM by: ERNIE GROVE [[id number]] documented in this encounter* Ernie Grove MD - 01/18/2020 2:50 PM EDT Dictation on: 01/18/2020 2:51 PM by: ERNIE GROVE [[id number]] documented in this encounter* Ernie Grove MD - 08/06/2020 9:55 AM EDT Dictation on: 08/06/2020 9:56 AM by: ERNIE GROVE [[id number]] documented in this encounter* Ernie Grove MD - 09/10/2020 5:53 PM EST Dictation on: 09/10/2020 5:54 PM by: ERNIE GROVE [[id number]] documented in this encounter* Italia Mcmillan, - 03/13/2019 10:20 AM EDT Jennifer Dick [...] occasionally builds to be a severe headache andshe also has episodes of ice pick type [...] Social: no smoke/etoh/not /no children/ 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 Do not make [...] to call your physician or the hospital gamma operator if you have any questions, and they will be glad to assist you. documented in this encounter* Instructions* Susan Judge RN - 07/20/2020 GENERAL POST-OPERATIVE PATIENT INSTRUCTIONS ANESTHESIA PRECAUTIONS: A responsible adult must stay with you for at least 24 hours after surgery. You may feel light headed,, dizzy, or nauseated during this time. Do not operate a vehicle (car, bike, motorcycle, master plumber) machinery or power tools. Do not make [...] to call your physician or the hospital gamma operator if you have any questions, and [...] Bilateral occipital neuralgia Italia Mcmillan, DO [address] [place] [address] Scheduling Instructions . Status Reason Specialty Diagnoses / Procedures Referred By Contact Referred To Contact New Request Diagnoses Muscle weakness (generalized) Procedures EMG & NERVE CONDUCTION Italia Mcmillan, DO [address] [place] [address] Status Reason Specialty Diagnoses / Procedures Referred By Contact Referred To Contact New Request Diagnoses Worst headache of life Procedures MRI ARTERIOGRAM BRAIN WITHOUT CONTRAST [place] MR ANGIO, HEAD Italia Mcmillan, DO [address] [place] [address] Status Reason Specialty Diagnoses / Procedures Referred By Contact Referred To Contact New Request Diagnoses Muscle weakness (generalized) Numbness and tingling in both hands Procedures MRI SPINE CERVICAL WITHOUT CONTRAST [place] MRI, CERV SPINE Italia Mcmillan, DO [address] [place] [address] Specialty Diagnoses / Procedures Referred By Contac t Referred To Contact Radiology Diagnoses RUQ abdominal pain Epigastric pain Nausea Procedures US abdomen complete US abdomen Gus Bradley PA-C [address] [facility] [place] [address] Referral ID Status Reason Start Date Expiration Date Visits Requested Visits Authorized [id number] Authorized Perform Procedure 08/08/2023 08/07/2024 1 1 Specialty Diagnoses / Procedures Referred By Contac t Referred To Contact Radiology Diagnoses RUQ abdominal pain Procedures NM hepatobiliary w cholecystokinin Evelyn Busch, DO [address] [facility] [place] [id number] Referral ID Status Reason Start Date Expiration Date Visits Requested Visits Authorized [id number] Pending Review Perform Procedure 3 07/23/2024 3 3 Specialty Diagnoses / Procedures Referred By Contac t Referred To Contact Diagnoses Post-operative pain Evelyn Del Rio MD [address] [facility] [place] [id number] Referral ID Status Reason Start Date Expiration Date V isits Requested Visits Authorized [id number] Pending Review 1 1 Specialty Diagnoses / Procedures Referred By Contac t Referred To Contact Radiology Diagnoses Left foot pain Procedures XR foot left 3+ views Evelyn Busch, [address] [facility] [place] [address] Referral ID Status Reason Start Date Expiration Date Visits Requested Visits Authorized [id number] Authorized Perform Procedure 12/16/2023 12/15/2024 1 1 Specialty Diagnoses / Procedures Referred By Contac t Referred To Contact Radiology Diagnoses Arthralgia, unspecified joint Procedures XR pelvis 3+ [place] [address] [address] [place] [address] Referral ID Status Reason Start Date Expiration Date Visits Requested Visits Authorized [id number] Authorized Perform Procedure 03/10/2024 03/10/2025 1 1 [...] female presents for sick visit * Per [facility] message: * Pt reports 05/13 when she [...] female presents for sick visit * Per [facility] message: * Pt reports 05/13 when she [...] for Depo Inj. * Patient Supply * [facility]: 17436-606-61 * Lot# [id number] * Exp: 10/06/2025 * Site: Right Deltoid * Depo Provera 150mg/mL IM * Return Date: 09/17/2022 palpitationsHeadachesHeadaches* Patient here for depo injection * PATIENT supply * [facility]: 04286-285-87 * LOT# [id number] * EXP:06/06/2026 * SITE: LEFT DELTOID * [...] section and content) DATE CREATED AUTHOR 12/26/2018 [facility] DATE CREATED AUTHOR AUTHOR'S ORGANIZ ATION 07/11/2019 [facility] DATE CREATED AUTHOR AUTHOR'S ORGANIZ ATION 09/26/2019 [facility] DATE CREATED AUTHOR AUTHOR'S ORGANIZ ATION 07/19/2020 [facility] DATE CREATED AUTHOR AUTHOR'S ORGANIZ ATION 02/16/2021 [facility] DATE CREATED AUTHOR AUTHOR'S ORGANIZ ATION 10/31/2022 [facility] DATE CREATED AUTHOR AUTHOR'S ORGANIZ ATION 05/14/2023 [facility] DATE CREATED AUTHOR AUTHOR'S ORGANIZ ATION 07/12/2023 [facility] DATE CREATED AUTHOR AUTHOR'S ORGANIZ ATION 07/12/2023 [facility] DATE CREATED AUTHOR AUTHOR'S ORGANIZ ATION 01/23/2024 [facility] DATE CREATED AUTHOR AUTHOR'S ORGANIZ ATION 10/28/2024 [facility] DATE CREATED AUTHOR AUTHOR'S ORGANIZ ATION 12/24/[address] [facility] DATE CREATED AUTHOR AUTHOR'S ORGANIZ ATION 01/14/2025 [facility] DATE CREATED AUTHOR AUTHOR'S ORGANIZ ATION 03/30/2025 [facility] DATE CREATED AUTHOR AUTHOR'S ORGANIZ ATION 07/10/2025 [facility] DATE CREATED AUTHOR AUTHOR'S ORGANIZ ATION 08/16/2025 [facility] DATE CREATED AUTHOR AUTHOR'S ORGANIZ ATION 08/17/2025 [facility] Reason for Visit (unrecogniz ed section and content) Reason Comments Follow-up Headache Reason Comments Pain Status Reason Specialty Diagnoses / Procedures Referre d By Contact Referred To Contact Diagnoses Patellofemoral pain syndrome of left knee Patellofemoral pain syndrome of left knee [M22.2X2] Procedures AZ REPAIR ANTER TIBIAL TUBERCLE Left knee natasha osteotomy [[id number]] Ernie Grove MD [address] [place], [place] [id number] Reason Comments Follow-up Suture / Staple Removal Reason Comments Follow-up Status Reason Specialty Diagnoses / Procedures Referre d By Contact Referred To Contact Diagnoses Patellofemoral pain syndrome of left knee Patellofemoral pain syndrome of left knee [M22.2X2] Procedures AZ KNEE SCOPE,PART SYNOVECT Ernie Grove MD [address] [place] [id number] Reason Comments Follow-up Suture / Staple Removal Wound Check Reason Comments New Patient Headache Reason Comments Abdominal Pain Constant RUQ pain x 2 weeks with nausea, increased with deep breaths and after meals. Specialty Diagnoses / Procedures Referred By Contac t Referred To Contact Radiology Diagnoses RUQ abdominal pain Epigastric pain Nausea Procedures US abdomen complete US abdomen Gus Bradley PA-C [address] [facility] [place] [address] Referral ID Status Reason Start Date Expiration Date Visits Requested Visits Authorized [id number] Authorized Perform Procedure 08/08/2023 08/07/2024 1 1 Specialty Diagnoses / Procedures Referred By Contac t Referred To Contact Radiology Diagnoses RUQ abdominal pain Procedures NM hepatobiliary w cholecystokinin Evelyn Busch, [address] [facility] [place] [address] Referral ID Status Reason Start Date Expiration Date Visits Requested Visits Authorized [id number] Pending Review Perform Procedure 3 07/23/2024 3 3 Specialty Diagnoses / Procedures Referred By Micac t Referred To Contact Diagnoses Biliary dyskinesia Biliary dyskinesia [K82.8] Procedures AZ LAPAROSCOPY SURG CHOLECYSTECTOMY Cholecystectomy Laparoscopy Evelyn Del Rio MD [address] [facility], [facility] [address] [place] [address] [id number] Referral ID Status Reason Start Date Expiration Date Visits Re quested Visits Authorized [id number] 1 1 Reason Comments Rash Patient having skin irritation under breast and abdomen area around the incision sites x 4 days ago with itching. Hx of cholecystectomy x [address] Del Rio. Specialty Diagnoses / Procedures Referred By Yusuf t Referred To Contact Radiology Diagnoses Left foot pain Procedures XR foot left 3+ views Evelyn Busch, [address] [facility] [place] [address] Referral ID Status Reason Start Date Expiration Date Visits Requested Visits Authorized [id number] Authorized Perform Procedure 12/16/2023 12/15/2024 1 1 Reason Comments Sore Throat Pt concerned for str ep. Reason Comments New Patient Visit New patient. C/O brittnee n in both knees, R shoulder and R hip. Specialty Diagnoses / Procedures Referred By Yusuf t Referred To Contact Rheumatology Diagnoses Arthralgia, unspecified joint Tammy Simeon, MERCHANDISING TEAM LEAD-CHIEF PHARMACIST [address] [facility], [facility] [address], [address] [place] [address] Referral ID Status Reason Start Date Expiration Date Visits Requested Visits Authorized [id number] Authorized Specialty Services Required 01/09/2024 01/08/2025 1 1 Specialty Diagnoses / Procedures Referred By Contac t Referred To Contact Radiology Diagnoses Arthralgia, unspecified joint Procedures XR pelvis 1-2 views XR pelvis 3+ [place] [address] Department [place] [address] Referral ID Status Reason Start Date Expiration Date Visits Requested Visits Authorized [id number] Pending Review Perform Procedure 03/10/2024 03/10/2025 1 [...] Referred By Contac t Referred To Contact [facility] Diagnoses with uncertain dates, antepartum (HCC) Procedures OBSTETRIC ULTRASOUND WHI US PREG UTERUS AFTER 1ST TRIMEST GESTATION Lorraine Roldan APRN.CN [address] [place] [address] Phone: tel: fax: [facility] [address] [place] [address] Referral ID Status Reason Start Date Expiration Date V isits Requested Visits Authorized [id number] Closed Auto-Generate d Referral 01/29/2025 01/29/2026 1 1 Reason Comments Headache Pt states migraine x 2 days. I can't take my normal medicine because I'm (16 weeks) . States this headache feels different it's positional Reason Comments US Specialty Diagnoses / Procedures Referred By Contac t Referred To Contact [facility] Diagnoses with uncertain dates, antepartum (HCC) Procedures OBSTETRIC ULTRASOUND WHI US PREG UTERUS AFTER 1ST TRIMEST GESTATION Lorraine Roldan APRN.CN [address] [place] [address] Phone: tel: fax: [facility] [address] [place] [address] Referral ID Status Reason Start Date Expiration Date V isits Requested Visits Authorized [id number] Closed Auto-Generate d Referral 01/29/2025 01/29/2026 1 [...] Name: Jennifer Dick Admit Date: MR #: [id number] : 1995 The H&P has been reviewed [...] We will proceed with left knee arthroscopy, Natasha osteotomy, repeat lateral release. All risks, complications were discussed. I have discussed all the treatment options with the patient. The patient was part of the entire decision-making process. I have performed a narcotics review. Last listed medication was gabapentin on 08/28/2019. documented in this encounter INTERVAL HISTORY AND PHYSICAL Patient Name: Jennifer Dick Admit Date: MR #: [id number] : 1995 The H&P has been reviewed [...] PACU without intraoperative complication. D 10/22/2019 08:23 [id number] 10/22/2019 09:22 MCB/MODL Brief Post Operative Note Patient Name: Jennifer Dick : 1995 (24 y.o.) Date of Service: 10/22/2019 CSN: [id number] Procedure(s): Left knee Natasha osteotomy, diagnostic left knee arthroscopy Pre-Operative Diagnoses: * Patellofemoral pain syndrome of left knee [M22.2X2] Post-Operative Diagnoses: * Same as Pre-Op Diagnosis * Patellofemoral pain syndrome of left knee [M22.2X2] Surgeon(s) and Role: * Ernie Grove MD - Primary Anesthesiologist: Chivo Vilchis MD MEDICAL RECEPTION: Boaz Wooten CRNA Inspector And Sorter: Jenni Trujillo RN Hot Man: Argelia Delgado, TECHNOLOGIST Scrub Person Preceptor: ST [place] Scrub Person Orientee: Lynne Amador RN Scrub Person Assist: Suzy Alcala LPN PROJECT ENGINEER CHEMICALS: Aranza Bradford RN Operative findings: see preop Intra and immediate post-operative complications: none Type of anesthesia used: General Estimated blood loss: 5 mL Estimated urine output: Refer to surgical log Specimen(s): * No specimens in log * Implant(s): Implant Name Type Inv. Item Serial No. Ingot Buggy Operator Lot No. LRB No. Used Action SCREW 4 X 38MM GUERO SHORT THRD - [id number] SCREW 4 X 38MM GUERO SHORT THRD SYNTHES LT LOAD #[id number] Left 1 Implanted SCREW 4 X 40MM GUERO SHORT THRD - [id number] SCREW 4 X 40MM GUERO SHORT THRD SYNTHES LT LOAD #[id number] Left 2 Implanted Drain(s): * No LDAs found * Wound(s): Wound 10/22/19 Surgical Wound Knee Left (Active) Ernie Grove MD 10/22/2019 8:18 AM documented in this encounter Dictation on: 07/20/2020 12:10 PM by: ERNIE GROVE [[id number]] Brief Post Operative Note Patient Name: Jennifer Dick : 1995 (24 y.o.) Date of Service: 07/20/2020 CSN: [id number] Procedure(s): Left knee arthroscopy synovectomy Pre-Operative Diagnoses: * Patellofemoral pain syndrome of left knee [M22.2X2] Post-Operative Diagnoses: * Same as Pre-Op Diagnosis * Patellofemoral pain syndrome of left knee [M22.2X2] Surgeon(s) and Role: * Ernie Grove MD - Primary Anesthesiologist: Jose Merino MD MEDICAL RECEPTION: Lonnie Gomez CRNA Inspector And Sorter: Sushma North RN; Tj Del Toro RN Scrub Person: ST Jeannie Grinder Set Up Operator Internal: ST Ashly Operative findings: see preop Intra [...] Care Teams (unrecognized sec tion and content) Financial Engineer Relationship Specialty Start Date End Date Evelyn Busch DO [address] [facility] [place] [address] PCP - General 06/19/19 Flavio, Lung S, MERCHANDISING TEAM LEAD-CHIEF PHARMACIST PCP - Employee ACO PCP 02/04/23 Financial Engineer Relationship Specialty Start Date End Date Evelyn Busch DO [address] [facility] Physician [place] [id number] PCP - General 06/19/19 Flavio, Lung S, MERCHANDISING TEAM LEAD-CHIEF PHARMACIST PCP - Employee ACO PCP 02/04/23 Financial Engineer Relationship Specialty Start Date End Date Evelyn Busch DO [address] [facility] Physician [place] [id number] PCP - General 06/19/19 Flavio, Lung S, MERCHANDISING TEAM LEAD-CHIEF PHARMACIST PCP - Employee ACO PCP 02/04/23 Financial Engineer Relationship Specialty Start Date End Date Evelyn Busch DO [address] [facility] Physician [place] [id number] PCP - General 06/19/19 Flavio, Lung S, MERCHANDISING TEAM LEAD-CHIEF PHARMACIST PCP - Employee ACO PCP 02/04/23 Financial Engineer Relationship Specialty Start Date End Date Evelyn Busch DO [address] [facility] [place] [address] PCP - General 06/19/19 Flavio, Lung S, MERCHANDISING TEAM LEAD-CHIEF PHARMACIST [address] [place] [address] PCP - Employee ACO PCP 02/04/23 Financial Engineer Relationship Specialty Start Date End Date Evelyn Busch DO [address] [facility] [place] [address] PCP - General 06/19/19 Flavio, Lung S, MERCHANDISING TEAM LEAD-CHIEF PHARMACIST PCP - Employee ACO PCP 02/04/23 Financial Engineer Relationship Specialty Start Date End Date Evelyn Busch DO [address] [facility] [place] [address] PCP - General 06/19/19 Flavio, Lung S, MERCHANDISING TEAM LEAD-CHIEF PHARMACIST [address] [place] [address] [place] [facility] PCP - Employee ACO PCP 02/04/23 Financial Engineer Relationship Specialty Start Date End Date Evelyn Busch, DO [address] [facility] [place] [address] PCP - General 06/19/19 Tammy Simeon, MERCHANDISING TEAM LEAD-CHIEF PHARMACIST [address] [address] PCP - Employee ACO PCP 10/07/23 Financial Engineer Relationship Specialty Start Date End Date Evelyn Busch DO [address] [facility] [place] [address] PCP - General 06/19/19 Tammy Simeon, MERCHANDISING TEAM LEAD-CHIEF PHARMACIST [address] [facility] [address] [place] [address] PCP - Employee ACO PCP 10/07/23 Financial Engineer Relationship Specialty Start Date End Date Evelyn Busch DO [address] [facility] [place] [address] PCP - General 06/19/19 Tammy Simeon, MERCHANDISING TEAM LEAD-CHIEF PHARMACIST [address] [facility], [address] [address] PCP - Employee ACO PCP 10/07/23 Tammy Simeon, MERCHANDISING TEAM LEAD-CHIEF PHARMACIST [address] [address] PCP - [place] ACO PCP 10/07/23 Financial Engineer Relationship Specialty Start Date End Date Evelyn Busch DO [address] [facility] [place] [address] PCP - General 06/19/19 Tammy Simeon MERCHANDISING TEAM LEAD-CHIEF PHARMACIST [address] [facility], [address] [address] PCP - Employee ACO PCP 10/07/23 Tammy Simeon, MERCHANDISING TEAM LEAD-CHIEF PHARMACIST [address] [address] PCP - [place] ACO PCP 10/07/23 Financial Engineer Relationship Specialty Start Date End Date Evelyn Busch DO [address] [facility] [place] [address] PCP - General 06/19/19 Tammy Simeon, MERCHANDISING TEAM LEAD-CHIEF PHARMACIST [address] [facility], [address] [address] PCP - Employee ACO PCP 10/07/23 Tammy Simeon, MERCHANDISING TEAM LEAD-CHIEF PHARMACIST [address] [facility], [address] [address] PCP - [place] ACO PCP 10/07/23 Financial Engineer Relationship Specialty Start Date End Date Evelyn Busch DO [address] [facility] [place] [address] PCP - General 06/19/19 Shari Muniz, MERCHANDISING TEAM LEAD-CHIEF PHARMACIST [address] [place] [address] PCP - Employee ACO PCP 02/04/23 Financial Engineer Relationship Specialty Start Date End Date Evelyn Busch DO [address] [facility] [place] [address] PCP - General 06/19/19 Tammy Simeon, MERCHANDISING TEAM LEAD-CHIEF PHARMACIST [address] [facility], [address] [address] PCP - Employee ACO PCP 10/07/23 Tammy Simeon, MERCHANDISING TEAM LEAD-CHIEF PHARMACIST [address] [facility], [place] [address] [place] [address] PCP - Amanda SALDAÑAO PCP 10/07/23 Financial Engineer Relationship Specialty Start Date End Date Evelyn Busch DO [facility] [place] [address] PCP - General 06/19/19 Tammy Simeon, MERCHANDISING TEAM LEAD-CHIEF PHARMACIST [address] [place] [address] PCP - Amanda LORA PCP 04/06/24 Financial Engineer Relationship Specialty Start Date End Date Evelyn Busch DO PCP - General Internal Medicine 03/13/19 Financial Engineer Relationship Specialty Start Date End Date Tammy Simeon MERCHANDISING TEAM LEAD-CHIEF PHARMACIST [address] [facility] [address] [place] [address] PCP - Amanda LORA PCP 04/06/24 Evelyn Busch DO [address] [place] [address] PCP - General Internal Medicine 03/23/25 Scheduled [...] Susana Rich RN)0814 (Stopped - Provider: Obdulia Levine, ASHLEY) midazolam (Versed) injection 1 mg (COMPLETED) 1 [...] Obdulia Levine RN)0913 (Given - Provider: Obdulia Levine RN) ondansetron (Zofran) injection 4 mg 4 mg, [...] or prosecute any alcohol or drug abuse patient.[facility] the event this information is protected by the Federal Confidentiality of Alcohol and Drug Abuse Patient Records regulations: The Federal rules restrict any use of the information to criminally investigate or prosecute any alcohol or drug abuse patient.[facility] the event this information is protected by the Federal Confidentiality of Alcohol and Drug Abuse Patient Records regulations: The Federal rules restrict any use of the information to criminally investigate or prosecute any alcohol or drug abuse patient.[facility] the event this information is protected by the Federal Confidentiality of Alcohol and Drug Abuse Patient Records regulations: The Federal rules restrict any use of the information to criminally investigate or prosecute any alcohol or drug abuse patient.[facility] the event this information is protected by the Federal Confidentiality of Alcohol and Drug Abuse Patient Records regulations: The Federal rules restrict any use of the information to criminally investigate or prosecute any alcohol or drug abuse patient.[facility] the event this information is protected by the Federal Confidentiality of Alcohol and Drug Abuse Patient Records regulations: The Federal rules restrict any use of the information to criminally investigate or prosecute any alcohol or drug abuse patient.[facility] the event this information is protected by the Federal Confidentiality of Alcohol and Drug Abuse Patient Records regulations: The Federal rules restrict any use of the information to criminally investigate or prosecute any alcohol or drug abuse patient.[facility] the event this information is protected by the Federal Confidentiality of Alcohol and Drug Abuse Patient Records regulations: The Federal rules restrict any use of the information to criminally investigate or prosecute any alcohol or drug abuse patient.[facility] the event this information is protected by the Federal Confidentiality of Alcohol and Drug Abuse Patient Records regulations: The Federal rules restrict any use of the information to criminally investigate or prosecute any alcohol or drug abuse patient.[facility] the event this information is protected by the Federal Confidentiality of Alcohol and Drug Abuse Patient Records regulations: The Federal rules restrict any use of the information to criminally investigate or prosecute any alcohol or drug abuse patient.[facility] the event this information is protected by the Federal Confidentiality of Alcohol and Drug Abuse Patient Records regulations: The Federal rules restrict any use of the information to criminally investigate or prosecute any alcohol or drug abuse patient.[facility] FOR RECORDS PERTAINING TO PATIENTS WHO [...] BE BASED ON THE PRIMARY CLINICAL RECORDS. [facility] [employer] [facility]. provides no warranty or guarantee of the accuracy or completeness of information in this document.
[2025-08-29 19:08] VITALS: BMI 42.0
--- NOTE | 2025-08-29 19:19 | PCM.HP.OB ---
HPI - General General Date of Admission: 08/29/25 HPI Narrative LAURY PATEL, is a 29 F at 39.2 weeks gestation who presents for induction of labor for GDM and Obesity. Maternal Data Information LILIANE Calculator Estimated Delivery Date Method Current WG Current Estimate 09/03/25 Manual 39w 2d PFSH PFS Medical History (Updated 08/29/25 @ 19:22 by Ara Strickland CNM) Migraines IBS (irritable bowel syndrome) Depression Anemia GDM (gestational diabetes mellitus) POTS (postural orthostatic tachycardia syndrome) Home Medications ?Medication ?Instructions ?Recorded ?Last Taken ?Type aspirin 81 mg capsule 162 mg PO DAILY 08/13/25 08/12/25 History cyproheptadine 4 mg tablet 4 mg PO TID PRN migraine headache 08/13/25 Unknown History famotidine 20 mg tablet (Pepcid) 20 mg PO BID 08/13/25 08/13/25 History ferrous sulfate 325 mg (65 mg 325 mg PO DAILY 08/13/25 08/13/25 History iron) tablet (Feosol) labetalol 100 mg tablet 100 mg PO PRN 08/13/25 Unknown History vitamins no.102-iron 90 cap PO 08/13/25 08/13/25 History mg-folate 1 mg-dha 200 mg capsule Allergy/AdvReac Type Severity Reaction Status Date / Time adhesive Allergy Mild Rash Verified 08/29/25 19:25 cephalexin Allergy Mild rash Verified 08/29/25 19:25 midodrine Allergy Mild rash Verified 08/29/25 19:25 Sutures Allergy Mild Hives Verified 08/29/25 19:25 Surgical History (Updated 08/13/25 @ 22:59 by Anthony Vasquez) H/O left knee surgery NST FHR Rate Baby A Baseline: 140 ROS Eyes Eyes: Denies blurry vision, change in vision or spots in vision ENT HEENT: Denies dizziness or headache(s) Cardiovascular Cardiovascular: Denies abdominal pain, chest pain or dyspnea Respiratory/Chest Respiratory/Chest: Denies cough, dyspnea, shortness of breath at rest or shortness of breath with exertion Gastrointestinal Gastrointestinal: Denies abdominal pain, diarrhea or vomiting Genitourinary Genitourinary: Denies change in urinary stream, difficulty urinating or dysuria Musculoskeletal Musculoskeletal: Reports none Integumentary Integumentary: Denies rash Neurologic Neurologic: Denies dizziness, headache(s), memory loss or weakness Psychiatric Psychiatric: Reports none Vital Signs Vital Signs Vital Signs: Weight Weight: 245 lb Body Mass Index (BMI) 42.0 Physical Exam Const alert, oriented x3 and no apparent distress General Appearance: cooperative Orientation / Consciousness: awake Exam Limitations: no limitations HEENT normocephalic Head and Scalp: normal to inspection Eyes General Eye: normal appearance of both eyes Neck full ROM and no lymphadenopathy Lymph Lymphatic: no lymphadenopathy noted Chest inspection of chest normal Resp normal respiratory effort, normal air movement and clear to auscultation bilaterally Effort and Inspection: able to speak in complete sentences and symmetric chest movement Cardio regular rate and regular rhythm GI normal to inspection, nondistended, normoactive bowel sounds Manual OB Exam: presentation cephalic Back/Spine normal ROM Extremity full ROM and no calf tenderness Skin no rashes or lesions noted General Skin Exam: no breakdown Neuro oriented x3 and CN's II-XII intact bilaterally Psych mental status grossly normal and thought process normal Assessment & Plan (1) 39 weeks gestation of : (2) GDM (gestational diabetes mellitus), class A1: (3) Obesity affecting : (4) Encounter for induction of labor: (5) Chronic migraine with aura: (6) History of depression: PLAN: Plan Admit to labor and delivery Routine labs GBS negative Start IV and run LR per orders Start Cytotec 25 mcg PO every 4 hours x [address] Bishop aware of admission and is collaborating physician
[2025-08-29 19:30] VITALS: PULSE 86; O2SAT 98
[2025-08-29 19:31] VITALS: BP 120/67; PULSE 80; RESP 18; TEMP 37.3; O2SAT 98
[2025-08-29 19:32] VITALS: TEMP 37.3
[2025-08-29] MEDS: 0.9% Saline Lock 10 ML Syringe IV (19:48)
[2025-08-29 20:06] LABS: Hematocrit 32.1 % (37-47); Hemoglobin 10.4 g/dL (12.0-15.0); Immature Granulocytes Count 0.030 X10^3/uL (0.0-0.0); Mean Corp Hgb Conc 32.4 g/dL (32-36); Mean Corpuscular Volume 89.4 fL (81-99); Mean Platelet Vol. 11.2 fl (6.2-12.0); NRBC Flagged by Analyzer 0 % (0-5); Platelet Count 286 K/mm3 (150-450); RBC Distribution Width CV 15.3 % (11.6-14.6); RBC Distribution Width SD 50.6 fl (35.1-43.9); Red Blood Count 3.59 M/mm3 (4.2-5.4); White Blood Count 11.1 K/mm3 (4.4-11.0)
[2025-08-29 20:41] LABS: Syphilis Antibodies Nonreactive (Nonreactive)
[2025-08-29 21:29] VITALS: PULSE 77; O2SAT 98
[2025-08-29] MEDS: Lactated Ringers 1,000 ML 50 ML IV (21:38)
[2025-08-30] VITALS (43 sets, daily range): BP systolic 106–210; BP diastolic 53–151; PULSE 73–179; RESP 16–18; TEMP 36.2–37.3; O2SAT 85–100; BMI 100.0; BMI 20251124.0; BMI 1300.0
[2025-08-30] MEDS: LACTATED RINGERS 500 ML 999 ML IV (00:18)
--- NOTE | 2025-08-30 08:08 | PN.OBGYN_ITS ---
Subjective Subjective Maya bulb placed. 1.5/50/-2. Low baseline all night. Plan to start pitocin after 9 am if Cat I tracing. Objective Data Objective Data Vital Signs: Vital Signs Temp Pulse Resp BP Pulse Ox 97.2 F L 87 16 128/82 H 99 08/30/25 07:20 08/30/25 07:19 08/30/25 07:18 08/30/25 07:18 08/30/25 07:19 Weight: 111.13 kg Body Mass Index (BMI) 42.0 Intake & Output: Intake and Output for Last 24 Hours 08/28/25 08/29/25 08/30/25 23:59 23:59 23:59 Intake Total 634.17 / 634.17 Balance 634.17 / 634.17 Lab / Micro Data 08/29/25 19:48 Labs: Laboratory Results - last 24 hr 08/29/25 19:48: WBC 11.1 H, RBC 3.59 L, Hgb 10.4 L, Hct 32.1 L, MCV 89.4, MCH 29.0, MCHC 32.4, RDW Std Deviation 50.6 H, RDW Coeff of Julio 15.3 H, Plt Count 286, MPV 11.2, Immature Gran % (Auto) 0.300, Neut % (Auto) 65.6, Lymph % (Auto) 23.9, Benson % (Auto) 8.8, Eos % (Auto) 0.9, Baso % (Auto) 0.5, Absolute Neuts (auto) 7.3, Absolute Lymphs (auto) 2.65, Nucleated RBC % 0, Syphilis Total Ab Nonreactive, Blood Type A POSITIVE, Antibody Screen NEGATIVE 08/29/25 20:32: POC Glucose 78 08/29/25 21:36: POC Glucose 83 08/30/25 00:53: POC Glucose 84 08/30/25 04:53: POC Glucose 87 Assessment & Plan (1) GDM (gestational diabetes mellitus), class A1: (2) 39 weeks gestation of : (3) Obesity affecting : QUALIFIERS: Trimester: third trimester Obesity type affecting : unspecified obesity Qualified Code(s): O99.213 - Obesity complicating , third trimester (4) Encounter for induction of labor: PLAN: Plan Epidural prn pitocin prn AROM prn
[2025-08-30] MEDS: 0.9% Normal Saline Single 100 ML IV.SOLN. INTRA-UTER (08:10)
[2025-08-30] MEDS: Oxytocin 15 Units/NS 250ml 15 UNITS/250 ML IV.SOLN 2 UNITS IV (09:10)
--- NOTE | 2025-08-30 13:18 | PCM.PN.OB ---
Subjective Subjective Maya bulb out at 1230. AROM or clear fluid. /-2 Objective Data Objective Data Vital Signs: Vital Signs Temp Pulse Resp BP Pulse Ox 98.3 F 88 16 126/70 H 98 08/30/25 13:12 08/30/25 13:12 08/30/25 13:12 08/30/25 13:12 08/30/25 13:12 Weight: 111.13 kg Body Mass Index (BMI) 42.0 Intake & Output: Intake and Output for Last 24 Hours 08/28/25 08/29/25 08/30/25 23:59 23:59 23:59 Intake Total 634.17 / 634.17 Balance 634.17 / 634.17 Lab / Micro Data 08/29/25 19:48 Labs: Laboratory Results - last 24 hr 08/29/25 19:48: WBC 11.1 H, RBC 3.59 L, Hgb 10.4 L, Hct 32.1 L, MCV 89.4, MCH 29.0, MCHC 32.4, RDW Std Deviation 50.6 H, RDW Coeff of Julio 15.3 H, Plt Count 286, MPV 11.2, Immature Gran % (Auto) 0.300, Neut % (Auto) 65.6, Lymph % (Auto) 23.9, Sterling % (Auto) 8.8, Eos % (Auto) 0.9, Baso % (Auto) 0.5, Absolute Neuts (auto) 7.3, Absolute Lymphs (auto) 2.65, Nucleated RBC % 0, Syphilis Total Ab Nonreactive, Blood Type A POSITIVE, Antibody Screen NEGATIVE 08/29/25 20:32: POC Glucose 78 08/29/25 21:36: POC Glucose 83 08/30/25 00:53: POC Glucose 84 08/30/25 04:53: POC Glucose 87 08/30/25 08:33: POC Glucose 85 NST FHR Rate Baby A Baseline: 120 Variability:: Moderate Accelerations:: 15 x 15 Decelerations:: None FHR Category:: Category I Assessment & Plan (1) Obesity affecting : QUALIFIERS: Trimester: third trimester Obesity type affecting : unspecified obesity Qualified Code(s): O99.213 - Obesity complicating , third trimester (2) Encounter for induction of labor: (3) GDM (gestational diabetes mellitus), class A1: (4) 39 weeks gestation of : PLAN: Plan Epidural prn Pitocin per protocol
[2025-08-30] MEDS: Lactated Ringers 1,000 ML 50 ML IV (16:23)
--- NOTE | 2025-08-30 18:32 | PCM.PN.OB ---
Subjective Subjective IUPC placed. Cervix still 4 cm. Breathing through contractions. Objective Data Objective Data Vital Signs: Vital Signs Temp Pulse Resp BP Pulse Ox 98.4 F 80 18 127/62 H 97 08/30/25 17:21 08/30/25 17:24 08/30/25 17:21 08/30/25 17:21 08/30/25 17:24 Weight: 111.13 kg Body Mass Index (BMI) 42.0 Intake & Output: Intake and Output for Last 24 Hours 08/28/25 08/29/25 08/30/25 23:59 23:59 23:59 Intake Total 1431.77 / 1431.77 Balance 1431.77 / 1431.77 Lab / Micro Data 08/29/25 19:48 Labs: Laboratory Results - last 24 hr 08/29/25 19:48: WBC 11.1 H, RBC 3.59 L, Hgb 10.4 L, Hct 32.1 L, MCV 89.4, MCH 29.0, MCHC 32.4, RDW Std Deviation 50.6 H, RDW Coeff of Julio 15.3 H, Plt Count 286, MPV 11.2, Immature Gran % (Auto) 0.300, Neut % (Auto) 65.6, Lymph % (Auto) 23.9, Crook % (Auto) 8.8, Eos % (Auto) 0.9, Baso % (Auto) 0.5, Absolute Neuts (auto) 7.3, Absolute Lymphs (auto) 2.65, Nucleated RBC % 0, Syphilis Total Ab Nonreactive, Blood Type A POSITIVE, Antibody Screen NEGATIVE 08/29/25 20:32: POC Glucose 78 08/29/25 21:36: POC Glucose 83 08/30/25 00:53: POC Glucose 84 08/30/25 04:53: POC Glucose 87 08/30/25 08:33: POC Glucose 85 08/30/25 13:11: POC Glucose 72 L 08/30/25 16:22: POC Glucose 80 NST FHR Rate Baby A Baseline: 120 Variability:: Moderate Accelerations:: 15 x 15 Decelerations:: None FHR Category:: Category I FHR Rate Baby B Baseline: q 4 Assessment & Plan (1) Encounter for induction of labor: (2) Obesity affecting : QUALIFIERS: Trimester: third trimester Obesity type affecting : unspecified obesity Qualified Code(s): O99.213 - Obesity complicating , third trimester (3) GDM (gestational diabetes mellitus), class A1: (4) 39 weeks gestation of :
[2025-08-30] MEDS: Lactated Ringers 1,000 ML 999 ML IV (18:42)
[2025-08-30] MEDS: fentaNYL-bupivacaine (epidural) 100 ML BAG EPIDURAL (20:47)
[2025-08-30] MEDS: 0.9% Saline Lock 10 ML Syringe IV (23:23)
[2025-08-31] VITALS (53 sets, daily range): BP systolic 99–133; BP diastolic 58–85; PULSE 74–112; RESP 14–18; TEMP 35.8–37.5; O2SAT 94–100; BMI 113.0; BMI 20251125.0
[2025-08-31] MEDS: Lactated Ringers 1,000 ML 200 ML IV (01:11)
[2025-08-31] MEDS: fentaNYL-bupivacaine (epidural) 100 ML BAG EPIDURAL (02:05)
--- NOTE | 2025-08-31 05:53 | PCM.PN.OB ---
Subjective Subjective Minimal cervical change despite increasing pitocin. Starting to sweat. Station still high. Discussed with patient Benadryl and continued pitocin or . heart rate variability improved with exam. Patient would like to discuss with family. Objective Data Objective Data Vital Signs: Vital Signs Temp Pulse Resp BP Pulse Ox 99.5 F H 86 18 123/58 H 97 08/31/25 05:08 08/31/25 05:09 08/31/25 01:26 08/31/25 05:09 08/31/25 02:20 Weight: 111.13 kg Body Mass Index (BMI) 42.0 Intake & Output: Intake and Output for Last 24 Hours 08/29/25 08/30/25 08/31/25 23:59 23:59 23:59 Intake Total 2683.80 / 2683.80 844.77 / 844.77 Output Total 300 / 300 600 / 600 Balance 2383.80 / 2383.80 244.77 / 244.77 Lab / Micro Data 08/29/25 19:48 Labs: Laboratory Results - last 24 hr 08/30/25 08:33: POC Glucose 85 08/30/25 13:11: POC Glucose 72 L 08/30/25 16:22: POC Glucose 80 08/30/25 21:10: POC Glucose 87 08/30/25 22:04: POC Glucose 87 08/30/25 23:08: POC Glucose 81 08/31/25 00:08: POC Glucose 79 08/31/25 01:08: POC Glucose 88 08/31/25 05:07: POC Glucose 99 NST FHR Rate Baby A Baseline: 130 Variability:: Minimal and Moderate Accelerations:: 15 x 15 Decelerations:: Late and Variable FHR Category:: Category I and Category II Uterine Activity:: 2-3 Assessment & Plan (1) GDM (gestational diabetes mellitus), class A1: (2) 39 weeks gestation of : (3) Obesity affecting : QUALIFIERS: Trimester: third trimester Obesity type affecting : unspecified obesity Qualified Code(s): O99.213 - Obesity complicating , third trimester (4) Encounter for induction of labor:
--- NOTE | 2025-08-31 06:08 | PCM.PN.OB ---
Subjective Subjective After discussing with family patient has decided she does not want to continue with induction. Reviewed procedure r/b or primary . Had a previous reaction to Steris strips vs suture when gall bladder was removed. Will avoid Steris but cannot avoid sutures. Procedure performed at an outlying hospital. Objective Data Objective Data Vital Signs: Vital Signs Temp Pulse Resp BP Pulse Ox 99.3 F H 99 18 130/67 H 97 08/31/25 06:03 08/31/25 06:03 08/31/25 01:26 08/31/25 06:03 08/31/25 02:20 Weight: 111.13 kg Body Mass Index (BMI) 42.0 Intake & Output: Intake and Output for Last 24 Hours 08/29/25 08/30/25 08/31/25 23:59 23:59 23:59 Intake Total 2683.80 / 2683.80 844.77 / 844.77 Output Total 300 / 300 600 / 600 Balance 2383.80 / 2383.80 244.77 / 244.77 Lab / Micro Data 08/29/25 19:48 Labs: Laboratory Results - last 24 hr 08/30/25 08:33: POC Glucose 85 08/30/25 13:11: POC Glucose 72 L 08/30/25 16:22: POC Glucose 80 08/30/25 21:10: POC Glucose 87 08/30/25 22:04: POC Glucose 87 08/30/25 23:08: POC Glucose 81 08/31/25 00:08: POC Glucose 79 08/31/25 01:08: POC Glucose 88 08/31/25 05:07: POC Glucose 99 NST FHR Rate Baby A Baseline: 125 Variability:: Minimal and Moderate Accelerations:: 15 x 15 Decelerations:: Early and Late FHR Category:: Category II Uterine Activity:: q2 Assessment & Plan (1) Failed induction of labor: QUALIFIERS: Failed induction of labor type: medical Qualified Code(s): O61.0 - Failed medical induction of labor (2) Obesity affecting : QUALIFIERS: Trimester: third trimester Obesity type affecting : unspecified obesity Qualified Code(s): O99.213 - Obesity complicating , third trimester (3) GDM (gestational diabetes mellitus), class A1: (4) 39 weeks gestation of : PLAN: Plan For primary
[2025-08-31] MEDS: Gentamicin 800 MG/20 ML Vial 280 MG IV (06:42)
[2025-08-31] MEDS: fentaNYL 100 MCG/2 ML Ampul EPIDURAL (06:42)
[2025-08-31] MEDS: Lactated Ringers 1,000 ML 1000 ML IV (06:42)
[2025-08-31] MEDS: Lidocaine 2% (5ml sdv) 5 ML VIAL.MPF 14 ML EPIDURAL (06:52)
[2025-08-31] MEDS: NORMAL SALINE IV (07:05)
[2025-08-31] MEDS: morphine PF (epidural) 5 MG/10 ML Vial 3 MG EPIDURAL (07:25)
--- NOTE | 2025-08-31 07:37 | OP.PCM_ITS ---
Assessment & Plan (1) Failed induction of labor: QUALIFIERS: Failed induction of labor type: medical Qualified Code(s): O61.0 - Failed medical induction of labor (2) Obesity affecting : QUALIFIERS: Trimester: third trimester Obesity type affecting : unspecified obesity Qualified Code(s): O99.213 - Obesity complicating , third trimester (3) GDM (gestational diabetes mellitus), class A1: Maternal Data Information LILIANE Calculator Estimated Delivery Date Method Current WG Current Estimate 09/03/25 Manual 39w 4d Final LILIANE: 09/03/25 Gestational age: 39+4 Operative Report (OB) Procedure Details Date of Procedure: 08/31/25 Procedure Start Time: 06:55 Procedure Stop Time: 07:26 Time of Delivery: 07:00 Pre-Operative Diagnosis: Failure to Progress Post-Operative Diagnosis: Same as Pre-operative diagnosis Classification: GLYNN Type of Anesthesia: Epidural Special Medications: methergine Antibiotic Given: Clindamycin 600mg IV x1 and Gentamicin 1.5mg/kg IV x1 and Zithromax 500 mg/5 mL X1 Drain: Maya to straight drain Estimated Blood Loss: 500 cc Findings Description of surgery: Patient taken to the OR with epidural and Maya in place. A vaginal septum at 2 o'clock was ligated with scissors and pressure held for a few moments for hemostasis. She was prepped and draped in the normal sterile fashion. A Pfannenstiel incision was made and carried down to the underlying fascia. The fascia was incised in the midline and extended laterally. The fascia was dissected from the muscle. The muscles divided in the midline. The peritoneum was entered bluntly and extended manually. A bladder blade was placed. A bladder flap was created. A low transverse incision was made and extended bluntly. The head was elevated to the incision. The shoulders delivered easily. There was a cord around the neck x 1. The cried upon delivery. The cord was cut and clamped. The placenta was delivered with caitlin traction. The uterus was exteriorized and cleared of all clot and debris. The incision was repaired with 1-0 Vicryl x 2. Methergine was given for uterine atony. The uterus was returned the abdomen. The gutters cleared of all clots. The peritoneum was closed with 2- 0 Monocryl. The fascia was closed with 1-0 Vicryl. The subcutaneous tissue was reapproximated with 2-0 Monocryl The skin was closed with 4-0. I performed the major parts of the procedure with the RFNA assisting with retraction and closing the skin. The sponge lap and needle count was correct x 2 Surgical findings: OP presentation Can x 1 Presentation: Vertex and ROP Amniotic Membrane Rupture Type: Artificial Amniotic Fluid Description: Clear Placental Delivery Description: Spontaneous Placenta Disposition: [facility] Specimen collected: No Cord Vessel Description: 3 Vessels Cord Entanglement: Around neck x 1, loose Nuchal Cord Compression: Without compression Infant A gender: Male (1 minute): 8 (5 minute): 9 Delayed Cord Clamping: Yes Carpenter Supervisor Wooden Ship adoption coordinator: Yes Operating Engineer Apprentice: Ilya Bautista Tasks completed by first officer: Opening & closing and Retracting Additional production administrative assistant?: No Complications Complications: Yes Complication Details: uterine atony
[2025-08-31] MEDS: Ketorolac 30 MG/ML Syringe IV ×3 (08:15→20:49)
[2025-08-31] MEDS: Oxytocin 15 Units/NS 250ml 15 UNITS/250 ML IV.SOLN 83 UNITS IV (08:15)
[2025-08-31] MEDS: Lactated Ringers 1,000 ML 100 ML IV (11:12)
[2025-08-31] MEDS: 0.9% Saline Lock 10 ML Syringe IV (14:10)
[2025-09-01 00:01] VITALS: BP 118/59; PULSE 83; RESP 16; TEMP 36.3; O2SAT 96
[2025-09-01] MEDS: Ketorolac 30 MG/ML Syringe IV (03:38)
[2025-09-01] MEDS: 0.9% Saline Lock 10 ML Syringe IV (03:40)
[2025-09-01 03:42] VITALS: BP 110/63; PULSE 80; RESP 16; TEMP 36.4
[2025-09-01 06:03] LABS: Hematocrit 28.9 % (37-47); Hemoglobin 9.3 g/dL (12.0-15.0); Mean Corp Hgb Conc 32.2 g/dL (32-36); Mean Corpuscular Volume 90.3 fL (81-99); Mean Platelet Vol. 10.5 fl (6.2-12.0); Platelet Count 268 K/mm3 (150-450); RBC Distribution Width CV 15.4 % (11.6-14.6); RBC Distribution Width SD 51.1 fl (35.1-43.9); Red Blood Count 3.20 M/mm3 (4.2-5.4); White Blood Count 15.6 K/mm3 (4.4-11.0)
[2025-09-01 07:45] VITALS: BP 114/73; PULSE 77; RESP 16; TEMP 36.6; O2SAT 98
[2025-09-01] MEDS: Senna/Docusate Sodium 1 Tablet PO (08:17)
--- NOTE | 2025-09-01 08:34 | PCM.PN.CNM ---
Subjective Subjective Patient seen at bedside. Denies headache, vision changes, SOB or CP. Ambulating and voiding without difficulty. Passing flatus. Lochia decreased. Objective Data Objective Data Vital Signs: Vital Signs Temp Pulse Resp BP Pulse Ox O2 Del Method 97.9 F 77 16 114/73 98 Room Air 09/01/25 07:45 09/01/25 07:45 09/01/25 07:45 09/01/25 07:45 09/01/25 07:45 09/01/25 07:45 Oxygen Delivery Method Room Air Weight: 245 lb Body Mass Index (BMI) 42.0 Intake & Output: Intake and Output for Last 24 Hours 08/30/25 08/31/25 09/01/25 23:59 23:59 23:59 Intake Total 2683.80 / 2683.80 2429.57 / 2429.57 Output Total 300 / 300 2450 / 2450 450 / 450 Balance 2383.80 / 2383.80 -20.43 / -20.43 -450 / -450 Lab / Micro Data Attestation: I reviewed the patient's lab results. 09/01/25 05:50 Labs: Laboratory Results - last 24 hr 08/31/25 08:09: POC Glucose 93 09/01/25 05:50: WBC 15.6 H, RBC 3.20 L, Hgb 9.3 L, Hct 28.9 L, MCV 90.3, MCH 29.1, MCHC 32.2, RDW Std Deviation 51.1 H, RDW Coeff of Julio 15.4 H, Plt Count 268, MPV 10.5 09/01/25 05:52: POC Glucose 96 ROS Eyes Eyes: Denies blurry vision, spots in vision or tunnel vision ENT HEENT: Denies dizziness or headache(s) Cardiovascular Cardiovascular: Reports systems reviewed and no addt'l complaints, except as documented, dizziness and dyspnea Respiratory/Chest Respiratory/Chest: Reports systems reviewed and no addt'l complaints, except as documented Gastrointestinal Gastrointestinal: Reports systems reviewed and no addt'l complaints, except as documented Genitourinary Genitourinary: Reports systems reviewed and no addt'l complaints, except as documented Neurologic Neurologic: Denies abnormal speech, dizziness, headache(s), syncope or vertigo Psychiatric Psychiatric: Reports systems reviewed and no addt'l complaints, except as documented Physical Exam Const alert and no apparent distress General Appearance: cooperative Orientation / Consciousness: awake, oriented to person and oriented to place Exam Limitations: no limitations HEENT normocephalic Eyes General Eye: normal appearance of both eyes Neck full ROM Chest Chest: symmetrical chest wall rise Resp normal respiratory effort, normal air movement and clear to auscultation bilaterally Auscultation: clear to auscultation bilaterally Cardio regular rate and regular rhythm GI normal to inspection, nondistended, normoactive bowel sounds Uterus Palpation: uterus fundus firm Extremity full ROM and no calf tenderness Skin no rashes or lesions noted Neuro oriented x3 Psych mental status grossly normal and activity/motor behavior normal Assessment & Plan (1) Status post primary low transverse section: (2) Care and examination of lactating mother: (3) Failed induction of labor: QUALIFIERS: Failed induction of labor type: medical Qualified Code(s): O61.0 - Failed medical induction of labor (4) History of depression: (5) Chronic migraine with aura: (6) Obesity affecting : QUALIFIERS: Trimester: third trimester Obesity type affecting : unspecified obesity Qualified Code(s): O99.213 - Obesity complicating , third trimester (7) GDM (gestational diabetes mellitus), class A1: PLAN: Plan POD 1 Primary C/S Pain control support Increase ambulation Anticipate discharge home tomorrow
--- NOTE | 2025-09-01 13:39 | CASEMGMT ---
Social Work Assessment Labor and Delivery Unit Patient Address: [address] [place], [place] [address] [address] Phone number: [phone] Date of Referral: 08/30/25 Time of Referral:?[id number] Referred By: Ara Strickland CNM Date of Intervention: 09/01/25? Time of Intervention:?1245 Reason for Referral:?hx of depression - not currently on medication History obtained from: medical records, mother of baby (MOB), father of baby (FOB) Household composition: Currently residing in the home is MOB, FOB, and baby to be added when ready for discharge. CAIO denies any housing concerns. Patient's parent/guardian status: ?CAIO states that she and FOB (Jose) have been for 3 years and together for 12 years. This is CAIO's first child. Medical History: CAIO is a 29 year old female who is 1 para 1 following labor and delivery of . CAIO received routine care during through [facility] CAIO presented to [facility] at 39 weeks gestation, failed induction of labor, and chose . Baby boy, Jossue Garcia, was born on 08/[birth year] weighing 7lbs, 15oz with apgars of 8 and 9 at one and five minutes of life respectively. CAIO plans to breast feed and reports that baby will be followed by [facility] for pediatric care and follow up. ? Educational Status:? 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 FONash works in home health care as well and is a Doctor of Physical Therapy. Financial Status: MOB states both MOB and FOB work in home health care and there are no financial concerns. Infant Supplies:?? MOB states having all needed infant supplies, including: car seat, safe sleep space, clothes, diapers, and wipes. Childcare/Caregiver(s):?MOB and FOB will be the primary caregivers to baby, along with CAIO's friend who has an in-home daycare. Transportation:?MOB reports having no concerns and states having reliable transportation. Programs/Agencies Involved: MOB denies all agency involvement. Children Services/Legal Issues:? No history of children services involvement. No issues or concerns warranting referral to be made at this time. Behavioral Health Issues: ??Mental Health History:??CAIO has mental health history of depression and used to engage in counseling. MOB reports taking medication in 2015 for a situation that caused depression to increase though MOB states not needing the medication anymore. MOB states FOB is able to tell when MOB is getting in a funk and help MOB understand when needing to get help. Substance Use History:?MOB denies substance use prior to and during . Family History: FONash's family reportedly also has history of depression. Drug Screens: ??No drug screens observed while completing chart review. Family/Social Stressors:? MOB denies any issues, concerns or stressors at this time aside from this transition home. Support Systems: MOB states that MOB and FOB's parents along with MOB's friend are all good supports. Depression/Shaken Baby/Safe Sleeping:? SW discussed baby blues and depression and anxiety with MOB. SW explained to MOB that due to having depression already, MOB is more likely to experience PPD. MOB expressed understanding. SW expressed importance of safe sleep inside and outside of the bedroom. SW educated MOB on shaken baby prevention. MOB expressed understanding. MOB was also educated on ability to talk with OB if she were to struggle with her mental health during this period or reengage with counseling. SW educated MOB on ABCs of safe sleep as well. ASSESSMENT:?MOB and baby admitted following labor and delivery. MOB has mental health history of depression and is currently not engaged in any mental health counseling or taking medication. MOB states having a large support system, including MOB's and FOB's parents as well as friends. At bedside was a friend who was observed holding the baby appropriately throughout conversation. FOB was observed engaging in conversation when necessary. MOB reports understanding how historical depression could lead to PPD. MOB talkative and open with SW during completion of assessment. MOB and FOB were receptive to resources provided and discussed. Safe Plan of Care for infant related to substance use:? N/A due to no concerns/no toxicology screen done. PLAN:? No other services requested or indicated. MOB and baby to be discharged when medically ready. Parents were provided literature regarding: signs and symptoms of baby blues and mood and anxiety disorders, Help Me Grow, shaken baby prevention, ABCs of safe sleep and a list of county resources that are available for them should any needs present themselves. Venus Singleton, RASCHEL KNITTING MACHINE OPERATOR, CHIEF BUILDING INSPECTOR
[2025-09-01 15:02] VITALS: BP 123/76; PULSE 97; RESP 18; TEMP 36.4; O2SAT 97
[2025-09-01 20:25] VITALS: BP 126/78; PULSE 87; RESP 17; TEMP 36.6; O2SAT 100
[2025-09-02 02:45] VITALS: BP 138/88; PULSE 92; RESP 14; TEMP 36.9; O2SAT 100
--- NOTE | 2025-09-02 08:27 | PCM.PROGNOTE ---
Subjective Subjective patient seen at bedside, doing well. Patient reports good pain control. lochia mild. Objective Data Objective Data Vital Signs: Vital Signs Temp Pulse Resp BP Pulse Ox O2 Del Method 98.4 F 92 14 138/88 H 100 Room Air 09/02/25 02:45 09/02/25 02:45 09/02/25 02:45 09/02/25 02:45 09/02/25 02:45 09/02/25 02:45 Oxygen Delivery Method Room Air Weight: 111.13 kg Body Mass Index (BMI) 42.0 Intake & Output: Intake and Output for Last 24 Hours 08/31/25 09/01/25 09/02/25 23:59 23:59 23:59 Intake Total 2429.57 / 2429.57 Output Total 2450 / 2450 450 / 450 Balance -20.43 / -20.43 -450 / -450 Lab / Micro Data 09/01/25 05:50 Physical Exam Narrative Abd: fundus firm. dressing dry and intact Const alert and oriented x3 General Appearance: cooperative HEENT normocephalic Neck General: normal visual inspection GI soft to palpation and non-distended GI Narrative: Fundus firm Extremity normal to inspection and no calf tenderness Skin no rashes or lesions noted Neuro oriented x3 and CN's II-XII intact bilaterally Psych mental status grossly normal Assessment & Plan Assessment/Plan (1) Status post primary low transverse section: PLAN: Plan POD# 2 , Doing well Routine care pain mgmt monitor VS ambulation dc home
--- NOTE | 2025-09-02 08:28 | DCINST_ITS ---
Discharge Instructions DC O2, CPAP, BIPAP needs Home O2 Discharge instructions: No Dressing / Incision May resume sexual activity in: 6-8 weeks Lifting Restrictions: 25 Dressing / Incision Call your doctor if your incision/area has: Continuous Slow Oozing, Sudden Increased Bleeding, Increased Pain/ Swelling, Increased Redness, Foul Smelling Discharge and Swelling at the incision site Call your doctor if you observe: Fever of 101 or Higher, Inability to urinate, Using more than 1 pad per hour and Uncontrolled pain Remove Dressing in: 1 week (post op) Cleanse incision/area with: Soap & Water Additional Dressing/Incision Instructions:: remove dressing at 7 days post op- if it becomes saturated prior to that time you may remove it. Let soap and water run over incision sites and dab dry. keep incision clean and dry. Follow Up Care Please Follow Up With: Ana Maria White MD When: 1 weeks post of incision check and again at 6 weeks post . [phone] Test Results: Test results from this visit will be discussed in further detail at your follow- up appointment, if applicable. Discharge Plan Admission Admit Date/Time: 08/29/25 18:55 Attending Provider: Mary Still Primary Care Provider: Reema Busch Discharge Orders/Prescriptions Prescriptions: New acetaminophen 500 mg Tablet 1,000 mg PO Q6H Qty: 0 0RF ibuprofen 600 mg Tablet 600 mg PO Q6H Qty: 0 0RF simethicone 80 mg Tablet,Chewable 80 mg PO PCHS PRN (Reason: Indigestion/stomach pain) Qty: 0 0RF Continued labetalol 100 mg tablet 100 mg PO PRN famotidine [Pepcid] 20 mg tablet 20 mg PO BID cyproheptadine 4 mg tablet 4 mg PO TID PRN (Reason: migraine headache) ferrous sulfate [Feosol] 325 mg (65 mg iron) tablet 325 mg PO DAILY PNV [id number] 90 mg iron- 1 mg-200 mg capsule 1 cap PO Discontinued aspirin 81 mg capsule 162 mg PO DAILY Referrals / Follow Up: Reema Busch, [Primary Care Provider, Internal Medicine] Disposition Disposition (needs filled in before D/C Order can be placed): Home, Self Care
--- NOTE | 2025-09-02 08:31 | DS.PCM_ITS ---
Discharge Summary Date of Admission: 08/29/25 Date of Discharge: 09/02/25 Summary: Patient was admitted to [facility] 08/29/2025 for induction due to GDM A1 and obesity in . Patient had failure to progress underwent a primary section without complication performed by Dr. Mary Still. Patient discharged home on postoperative day #2 in stable condition. Meaningful Use Info Meaningful Use Meaningful Use Diagnoses (Choose all that apply): None applicable Ischemic Stroke Statin Dosing Therapy Reference: STATIN DOSE THERAPY REFERENCE: * Patients > 75 years receive moderate or high dose statin therapy. * Patients 75 years or YOUNGER should receive HIGH intensity statin dose unless contraindicated. You will be required to document reason for non-treatment if statin daily dose does not meet guidelines. HIGH DOSE STATIN THERAPY DAILY Atorvastatin > than or = to 40 mg Rosuvastatin > than or = to 20 mg Amlodipine + Atorvastatin > than or = to 2.5/40 mg Ezetimibe + Simvastatin 10/80 mg Simvastatin 80mg Discharge Plan Admission Admit Date/Time: 08/29/25 18:55 Attending Provider: Mary Still Primary Care Provider: Reema Busch Discharge Orders/Prescriptions Prescriptions: New acetaminophen 500 mg Tablet 1,000 mg PO Q6H Qty: 0 0RF ibuprofen 600 mg Tablet 600 mg PO Q6H Qty: 0 0RF simethicone 80 mg Tablet,Chewable 80 mg PO PCHS PRN (Reason: Indigestion/stomach pain) Qty: 0 0RF Continued labetalol 100 mg tablet 100 mg PO PRN famotidine [Pepcid] 20 mg tablet 20 mg PO BID cyproheptadine 4 mg tablet 4 mg PO TID PRN (Reason: migraine headache) ferrous sulfate [Feosol] 325 mg (65 mg iron) tablet 325 mg PO DAILY PNV [id number] 90 mg iron- 1 mg-200 mg capsule 1 cap PO Discontinued aspirin 81 mg capsule 162 mg PO DAILY Referrals / Follow Up: Reema Busch DO [Primary Care Provider, Internal Medicine] Disposition Disposition (needs filled in before D/C Order can be placed): Home, Self Care
[2025-09-02 09:08] VITALS: BP 132/78; PULSE 98; RESP 16; TEMP 36.8; O2SAT 99
== END 2025-09-02 10:55 | disposition home or self-care (01) | DRG 787 ==
PROVIDERS: Advanced Practice Midwife; Admitting Provider Obstetrics & Gynecology; PCP Internal Medicine; Referring Provider Obstetrics & Gynecology; Visit Provider Obstetrics & Gynecology
DX: O24.420 Gestational diabetes mellitus in childbirth, diet controlled (principal); O99.354 Diseases of the nervous system complicating childbirth; G90.A Postural orthostatic tachycardia syndrome [POTS]; O99.214 Obesity complicating childbirth; G43.E09 Chronic migraine with aura, not intractable, without status migrainosus; O99.02 Anemia complicating childbirth; O61.0 Failed medical induction of labor; O69.81X0 Labor and delivery complicated by cord around neck, without compression, not applicable or unspecified; O76 Abnormality in fetal heart rate and rhythm complicating labor and delivery; Z3A.39 39 weeks gestation of pregnancy; Z37.0 Single live birth; Z79.82 Long term (current) use of aspirin; Z79.899 Other long term (current) drug therapy; Z86.59 Personal history of other mental and behavioral disorders
CPT/HCPCS: 59025; 59050; 82962; 85025; 85027; 86780; 86850; 86900; 86901; 99221; A4216; G0378; J2405